=== PATIENT | female | born 1930 | race Caucasian/White ===

== ENCOUNTER 2017-03-03 17:00 | Inpatient (IN) | payer OTHER ==
[~2017-03-03] VITALS: Ht 149.9 cm; Wt 45.0 kg
[~2017-03-03 17:00] MED LIST: AMLO-114 PO; ASPI81TA28 PO; MULT-513 PO; OMEG10007 PO
[2017-03-03] MEDS ORDERED: SODIUM CHLORIDE 0.9% 1000ML 1,000 ML IV SCH (17:18)
--- NOTE | 2017-03-03 17:29 | EMERGENCY ROOM VISIT NOTE ---
History Report prepared by Kathy: Chapin Ayala Under the Supervision of: Dr. True Baer M.D. First contact with patient: 17:10 Chief Complaint: STROKE SYMPTOMS Stated Complaint: STROKE History of Present Illness The patient is a 86 year old female who presents to the Emergency Room with complaints of constant neurologic symptoms beginning 9 hours ago. Per son, the patient's symptoms began with loss of balance, and left hand weakness. He notes that the patient fell today. The patient denies any headache, chest pain, back pain, abdominal pain, fevers, urinary symptoms, or vomiting. She denies any injury from her fall today. She states that she currently does not feel off balance. The patient states that she did not notice any left sided weakness today. She states that she has been eating and drinking normally. Source of History: patient, family (son) Onset: 9 hours ago Quality: other (neurologic symptoms) Timing: constant Associated Symptoms: + weakness (left hand), No abdominal pain, No back pain , No chest pain, No fevers, No headache, No urinary symptoms, No vomiting Note: The patient also complains of feeling off balance. Review of Systems See HPI for pertinent positives & negatives. A total of 10 systems reviewed and were otherwise negative. Past Medical & Surgical Medical Problems: (1) Hyperlexia (2) Hypertension (3) Osteoporosis Family History No pertinent family history stated. Social History Smoking Status: Current Every Day Smoker Alcohol Use: none Marital Status: Housing Status: lives with significant other Occupation Status: unemployed Current/Historical Medications Scheduled Amlodipine (Norvasc), 10 MG PO DAILY Aspirin (Aspirin Ec), 81 MG PO DAILY Multivitamins/Minerals (Mvi With Minerals), 1 TAB PO DAILY Allergies Coded Allergies: Morphine (Verified Allergy, Unknown, hallucinations, 03/03/17) Physical Exam Vital Signs Date Time Temp Pulse Resp B/P Pulse Ox O2 Delivery O2 Flow Rate FiO2 03/03/17 17:58 87 22 141/105 97 Room Air 03/03/17 17:15 98 Room Air 03/03/17 17:13 37.7 89 18 151/81 96 Room Air 03/03/17 17:06 87 Physical Exam GENERAL: Patient is in no acute distress. HEENT: No acute trauma, normocephalic atraumatic, mucous membranes moist, no nasal congestion, no scleral icterus. NECK: No stridor, no adenopathy, no meningismus, trachea is midline. LUNGS: Diminished breath sounds bilaterally. Breath sounds are equal. No wheezes or rhonchi. HEART: Without murmurs gallops or rubs, regular rate and rhythm. ABDOMEN: Soft, nontender, bowel sounds positive, no hernias, no peritonitis. EXTREMITIES: No cyanosis or edema, full range of motion of all the joints without pain or difficulty, no signs for acute trauma. NEUROLOGIC: Appears to demonstrate left sided neglect. Left arm drifting and some LUE cerebellar dysfunction. Slight left leg drifting. No facial droop or slurred speech. Awake and alert. SKIN: No rash, no jaundice, no diaphoresis. Medical Decision & Procedures ER Provider Diagnostic Interpretation: X-ray results as stated below per interpretation by me and the radiologist. CT results as stated below per my review and radiologist interpretation: HEAD CT NONCONTRAST Findings: The paranasal sinuses and mastoid air cells are clear. Acute/subacute infarct of the right middle cerebral arterial distribution. Moderate effacement of the mid to superior right cerebral sulci. No acute intracranial hemorrhage. No midline shift. Pre-existing age-related chronic small vessel and atrophic change. Impression: A relatively large acute/subacute right cerebral infarct involving the right middle cerebral arterial distribution. No acute intracranial hemorrhage. Electronically signed by: Sudarshan Sun M.D. CHEST ONE VIEW PORTABLE FINDINGS: The bones soft tissues and hemidiaphragms are normal. The cardiomediastinal silhouette is normal. The lungs are clear. The pulmonary vasculature is normal. IMPRESSION: Negative chest. Electronically signed by: Sudarshan Sun M.D. Laboratory Results 03/03/17 17:15 Red Blood Count 4.39, Mean Corpuscular Volume 89.5, Mean Corpuscular Hemoglobin 31.2, Mean Corpuscular Hemoglobin Concent 34.9, Mean Platelet Volume 8.2, Neutrophils (%) (Auto) 70.4, Lymphocytes (%) (Auto) 18.0, Monocytes (%) (Auto) 8.6, Eosinophils (%) (Auto) 2.0, Basophils (%) (Auto) 0.6, Neutrophils # (Auto) 3.59, Lymphocytes # (Auto) 0.92, Monocytes # (Auto) 0.44, Eosinophils # (Auto) 0.10, Basophils # (Auto) 0.03 03/03/17 17:15 Test 03/03/17 17:15 03/03/17 17:23 03/03/17 17:33 White Blood Count 5.10 K/uL (4.8-10.8) Red Blood Count 4.39 M/uL (4.2-5.4) Hemoglobin 13.7 g/dL (12.0-16.0) Hematocrit 39.3 % (37-47) Mean Corpuscular Volume 89.5 fL (80-100) Mean Corpuscular Hemoglobin 31.2 pg (25-34) Mean Corpuscular Hemoglobin Concent 34.9 g/dl (32-36) Platelet Count 349 K/uL (130-400) Mean Platelet Volume 8.2 fL (7.4-10.4) Neutrophils (%) (Auto) 70.4 % Lymphocytes (%) (Auto) 18.0 % Monocytes (%) (Auto) 8.6 % Eosinophils (%) (Auto) 2.0 % Basophils (%) (Auto) 0.6 % Neutrophils # (Auto) 3.59 K/uL (1.4-6.5) Lymphocytes # (Auto) 0.92 K/uL (1.2-3.4) Monocytes # (Auto) 0.44 K/uL (0.11-0.59) Eosinophils # (Auto) 0.10 K/uL (0-0.5) Basophils # (Auto) 0.03 K/uL (0-0.2) RDW Standard Deviation 49.9 fL (36.4-46.3) RDW Coefficient of Variation 15.2 % (11.5-14.5) Immature Granulocyte % (Auto) 0.4 % Immature Granulocyte # (Auto) 0.02 K/uL (0.00-0.02) Prothrombin Time 11.4 SECONDS (9.0-12.0) Prothromb Time International Ratio 1.1 (0.9-1.1) Activated Partial Thromboplast Time 28.2 SECONDS (21.0-31.0) Partial Thromboplastin Ratio 1.1 Anion Gap 7.0 mmol/L (3-11) Est Creatinine Clear Calc Drug Dose 41.1 ml/min Estimated GFR () 59.8 Estimated GFR (Non- 51.6 BUN/Creatinine Ratio 22.9 (10-20) Calcium Level 9.5 mg/dl (8.5-10.1) Total Creatine Kinase 92 U/L (26-192) Creatine Kinase MB 1.8 ng/ml (0.5-3.6) Creatine Kinase MB Ratio 2.0 (0-3.0) Troponin I < 0.015 ng/ml (0-0.045) Chemistry Specimen Hemolysis Bedside Glucose 99 mg/dl (70-90) Bedside Prothrombin Time INR 1.1 (0.9-1.1) Laboratory results reviewed by me. Medications Administered Medications (Trade) Dose Ordered Sig/Paco Route Start Time Stop Time Status Last Admin Dose Admin Sodium Chloride (Nss 1000ml) 1,000 ml @ 50 mls/hr Q20H IV 03/03/17 17:18 04/02/17 17:17 03/03/17 17:58 50 MLS/HR ECG Indication: other (neurologic symptoms ) Rate (beats per minute): 86 Rhythm: normal sinus Findings: T-wave inversion (Lateral leads. Somewhat along the inferior leads. ) , no ectopy, other (LVH) Comparison ECG Date: Nov 18, 2008 Change: no significant change ED Course 171: The patient was evaluated in room A12B. A complete history and physical exam was performed. 1718: Ordered Sodium Chloride 1000 ml @ 50 mls/hr IV. 1754: Upon reexamination the patient is resting comfortably. I discussed results and treatment plan with the patient. She verbalizes agreement and understanding. The patient will be evaluated for further management. Medical Decision The patient is a 86 year old female who presents to the ED with complaints of neurologic symptoms. Differential diagnoses considered include CVA, ICH, infection, UTI, electrolyte imbalance, anemia, and dysrhythmia. There is no leukocytosis or concerning anemia. No significant electrolyte abnormality, kidney failure. EKG shows a sinus rhythm with LVH, no acute ischemia. Cardiac enzyme testing times one is not consistent with acute cardiac injury. Chest x-ray shows no pneumonia or mediastinal widening. There is no CHF. Brain CT shows evidence for a subacute right MCA stroke. No intracranial bleeding. Blood pressure somewhat elevated but I do think reasonable given the stroke findings. On exam, the patient did have evidence for left sided neglect. She had some left sided upper and lower extremity motor deficits. The patient received IV saline, she is clearly out of any window for TPA. She has had symptoms now for well over [address], the stroke as already been classified as subacute. The patient requires admission/observation. I did speak to case management. The on-call hospitalist was consulted. I discussed my findings with the patient and her son. Medication Reconciliation: I attest that I have personally reviewed the patient' s current medication list. Blood Pressure Screening: Patient was found to have an elevated blood pressure and was referred to their primary doctor for recheck and further treatment. Consults Time Called: 1749 Consulting Physician: Dr. Yunior MURPHY Returned Call: [phone] Discussed the patient's case. The patient will be evaluated for further management. Impression Primary Impression: Acute CVA (cerebrovascular accident) Scribe Attestation The scribe's documentation has been prepared under my direction and personally reviewed by me in its entirety. I confirm that the note above accurately reflects all work, treatment, procedures, and medical decision making performed by me. Departure Information Dispostion Being Evaluated By Hospitalist Referrals No Doctor, Assigned (PCP) Patient Instructions My [facility] Stroke History Time Last Known Well 8 am (9.5 hours MEDICAL DIRECTOR) Stroke t-PA Criteria Reviewed Does NOT meet criteria for t-PA Reason t-PA Not Given Treatment not indicated
[2017-03-03 17:30] LABS: BASO % 0.6 %; BASO ABS # 0.03 K/uL (0-0.2); COMPLETE YES; HEMATOCRIT 39.3 % (37-47); IG% 0.4 %; LYMPH ABS # 0.92 K/uL (1.2-3.4); MEAN CELL VOLUME 89.5 fL (80-100); MEAN CORPUSCULAR HEMOGLOBIN 31.2 pg (25-34); MEAN CORPUSCULAR HGB CONC 34.9 g/dl (32-36); MEAN PLATELET VOLUME 8.2 fL (7.4-10.4); MONO % 8.6 %; NEUT % 70.4 %; PLATELET COUNT 349 K/uL (130-400); RED BLOOD COUNT 4.39 M/uL (4.2-5.4)
[2017-03-03 17:39] LABS: INR 1.1 (0.9-1.1); PARTIAL THROMBOPLASTIN RATIO 1.1; PROTHROMBIN TIME (PATIENT) 11.4 SECONDS (9.0-12.0)
--- NOTE | 2017-03-03 17:42 | DIAGNOSTIC IMAGING REPORT ---
HEAD CT NONCONTRAST CT DOSE: 1277.12 mGycm HISTORY: Mental status change Stroke TECHNIQUE: Multiaxial CT images of the head were performed without the use of intravenous contrast. Comparison: 02/29/2016 Findings: The paranasal sinuses and mastoid air cells are clear. Acute/subacute infarct of the right middle cerebral arterial distribution. Moderate effacement of the mid to superior right cerebral sulci. No acute intracranial hemorrhage. No midline shift. Pre-existing age-related chronic small vessel and atrophic change. Impression: A relatively large acute/subacute right cerebral infarct involving the right middle cerebral arterial distribution. No acute intracranial hemorrhage. Electronically signed by: Sudarshan Sun M.D. 03/03/2017 5:41 PM Dictated Date/Time: 03/03/2017 5:38 PM
--- NOTE | 2017-03-03 17:50 | DIAGNOSTIC IMAGING REPORT ---
CHEST ONE VIEW PORTABLE CLINICAL HISTORY: Stroke mental status change COMPARISON STUDY: 05/15/2012 FINDINGS: The bones soft tissues and hemidiaphragms are normal. The cardiomediastinal silhouette is normal. The lungs are clear. The pulmonary vasculature is normal. IMPRESSION: Negative chest. Electronically signed by: Sudarshan Sun M.D. 03/03/2017 5:49 PM Dictated Date/Time: 03/03/2017 5:49 PM
[2017-03-03 17:53] LABS: BLOOD UREA NITROGEN 23 mg/dl (7-18); BUN/CREATININE RATIO 22.9 (10-20); CALCIUM 9.5 mg/dl (8.5-10.1); CARBON DIOXIDE 27 mmol/L (21-32); CHLORIDE 103 mmol/L (98-107); CREATININE 0.99 mg/dl (0.60-1.20); GLUCOSE 89 mg/dl (70-99); POTASSIUM 3.9 mmol/L (3.5-5.1); SODIUM 137 mmol/L (136-145)
--- NOTE | 2017-03-03 18:03 | History and Physical ---
History & Physical Date & Time of Service: March 03, 2017 at 17:58 Chief Complaint: Stroke Primary Care Physician: No Doctor, Assigned History of Present Illness Source: patient, family This is a 86 yo F with PMHx of hyperlipidemia, hypertension, right breast mucinous adenocarcinoma s/p lumpectomy in 2011, hx R nephrectomy 2012, chronic tobacco abuse, who presents with new acute right CVA involving the right MCA. She experienced acute onset of weakness which began at approximately 9 AM today. The patient's son is present at bedside and he reports the last time she was seen while was at approximately 8 AM. The patient is hesitant to provide any history and she does not wish to stay in the hospital. Son reports that she was leaning towards her right side with ambulation, and seemed to be off balance. The patient does admit to feeling like she couldn't walk straight but denies any lightheadedness or dizziness. She denies any strength deficits in her upper or lower extremities. She denies any difficulty with swallowing or speech throughout the day. Son confirms that she does not seem to have any slurred speech or aphasia. She denies any chest pain, shortness of breath, abdominal pain. Patient admits to a tonic tobacco use history, smokes approximately 8-10 cigarettes per day. She takes a baby aspirin in the morning and is on amlodipine 10 mg every morning. She does not take any other medications and does not follow with a family doctor regularly. Past Medical/Surgical History Medical Problems: (1) Hyperlexia Status: Chronic (2) Hypertension Status: Chronic Hx Breast Cancer S/p kidney removal Social History Smoking Status: Current Every Day Smoker Smokeless Tobacco Use: No Alcohol Use: none Drug Use: none Marital Status: Housing status: lives with family Occupational Status: unemployed Immunizations History of Influenza Vaccine: Yes Influenza Vaccine Date: Aug 02, 2008 History of Tetanus Vaccine?: Unknown History of Pneumococcal: No History of Hepatitis B Vaccine: No Multi-Drug Resistant Organisms History of MDRO: No Allergies Coded Allergies: Morphine (Verified Allergy, Unknown, hallucinations, 03/03/17) Home Medications Scheduled Amlodipine (Norvasc), 10 MG PO DAILY Aspirin (Aspirin Ec), 81 MG PO DAILY Multivitamins/Minerals (Mvi With Minerals), 1 TAB PO DAILY Review of Systems Constitutional: No fever, sweats or chills Eyes: No diplopia, no worsening or blurred vision ENT: normal hearing, no trouble swallowing Respiratory: No cough, sputum, dyspnea at rest or on exertion Cardiovascular: No chest pain, tightness or palpitations Abdomen: No pain, nausea, vomiting, diarrhea or constipation Musculoskeletal: No joint pain, calf pain, swelling Neurologic: No weakness, numbness/tingling, + balance problems and leaning to the right side during ambulation Psychiatric: No anxiety or depression Skin: No rash or itch Physical Exam Vital Signs Date Time Temp Pulse Resp B/P Pulse Ox O2 Delivery O2 Flow Rate FiO2 03/03/17 17:15 98 Room Air 03/03/17 17:13 37.7 89 18 151/81 96 Room Air 03/03/17 17:06 87 General: awake, alert, no apparent distress, appears anxious, thin, smells of tobacco smoke Head: Normocephalic, atraumatic ENT: PERRL, EOMI, no pharyngeal exudate, mucous membranes moist Chest: Clear to auscultation, on room air, no adventitious breath sounds Cardiac: Regular rate and rhythm, + soft systolic murmur, no JVD, normal peripheral pulses, good capillary refill Abdominal: NABS x 4 quadrants, soft, nontender to palpation, no rebound, guarding or tenderness Extremities: Normal inspection, no peripheral edema or erythema, calfs nontender to palpation Psych: Normal mood and affect Neuro: AAO x 3, left upper extremity is ataxic, + pronator drift with the left upper extremity, diminished ability to touch finger to nose w left hand, ability of rapid alternating movement is diminished in the left hand. Strength is decreased 4 out of 5 on the left upper extremity compared to the right. Strength is 5 out of 5 and equal bilaterally in lower extremities. Heel-to- slater testing is intact bilaterally. Speech is clear, no peripheral sensory deficits Diagnostics Laboratory Results Results Past 24 Hours Test 03/03/17 17:15 03/03/17 17:23 03/03/17 17:33 Range/Units White Blood Count 5.10 4.8-10.8 K/uL Red Blood Count 4.39 4.2-5.4 M/uL Hemoglobin 13.7 12.0-16.0 g/dL Hematocrit 39.3 37-47 % Mean Corpuscular Volume 89.5 80-100 fL Mean Corpuscular Hemoglobin 31.2 25-34 pg Mean Corpuscular Hemoglobin Concent 34.9 32-36 g/dl Platelet Count 349 130-400 K/uL Mean Platelet Volume 8.2 7.4-10.4 fL Neutrophils (%) (Auto) 70.4 % Lymphocytes (%) (Auto) 18.0 % Monocytes (%) (Auto) 8.6 % Eosinophils (%) (Auto) 2.0 % Basophils (%) (Auto) 0.6 % Neutrophils # (Auto) 3.59 1.4-6.5 K/uL Lymphocytes # (Auto) 0.92 1.2-3.4 K/uL Monocytes # (Auto) 0.44 0.11-0.59 K/uL Eosinophils # (Auto) 0.10 0-0.5 K/uL Basophils # (Auto) 0.03 0-0.2 K/uL RDW Standard Deviation 49.9 36.4-46.3 fL RDW Coefficient of Variation 15.2 11.5-14.5 % Immature Granulocyte % (Auto) 0.4 % Immature Granulocyte # (Auto) 0.02 0.00-0.02 K/uL Prothrombin Time 11.4 9.0-12.0 SECONDS Prothromb Time International Ratio 1.1 0.9-1.1 Activated Partial Thromboplast Time 28.2 21.0-31.0 SECONDS Partial Thromboplastin Ratio 1.1 Sodium Level 137 136-145 mmol/L Potassium Level 3.9 3.5-5.1 mmol/L Chloride Level 103 98-107 mmol/L Carbon Dioxide Level 27 21-32 mmol/L Anion Gap 7.0 3-11 mmol/L Blood Urea Nitrogen 23 7-18 mg/dl Creatinine 0.99 0.60-1.20 mg/dl Est Creatinine Clear Calc Drug Dose 41.1 ml/min Estimated GFR () 59.8 Estimated GFR (Non- 51.6 BUN/Creatinine Ratio 22.9 10-20 Random Glucose 89 70-99 mg/dl Calcium Level 9.5 8.5-10.1 mg/dl Total Creatine Kinase 92 26-192 U/L Creatine Kinase MB 1.8 0.5-3.6 ng/ml Creatine Kinase MB Ratio 2.0 0-3.0 Troponin I < 0.015 0-0.045 ng/ml Chemistry Specimen Hemolysis Bedside Glucose 99 70-90 mg/dl Bedside Prothrombin Time INR 1.1 0.9-1.[address] NON[address]AST CT DOSE: 1277.12 mGycm HISTORY: Mental status change Stroke TECHNIQUE: Multiaxial CT images of the head were performed without the use of intravenous contrast. Comparison: 02/29/2016 Findings: The paranasal sinuses and mastoid air cells are clear. Acute/subacute infarct of the right middle cerebral arterial distribution. Moderate effacement of the mid to superior right cerebral sulci. No acute intracranial hemorrhage. No midline shift. Pre-existing age-related chronic small vessel and atrophic change. Impression: A relatively large acute/subacute right cerebral infarct involving the right middle cerebral arterial distribution. No acute intracranial hemorrhage. Electronically signed by: Sudarshan Sun M.D. 03/03/2017 5:41 PM Dictated Date/Time: 03/03/2017 5:38 PM The status of this report is Signed. CHEST ONE VIEW PORTABLE CLINICAL HISTORY: Stroke mental status change COMPARISON STUDY: 05/15/2012 FINDINGS: The bones soft tissues and hemidiaphragms are normal. The cardiomediastinal silhouette is normal. The lungs are clear. The pulmonary vasculature is normal. IMPRESSION: Negative chest. Electronically signed by: Sudarshan Sun M.D. 03/03/2017 5:49 PM Dictated Date/Time: 03/03/2017 5:49 PM The status of this report is Signed. Impression Assessment and Plan This is a 86 yo F with PMHx of hyperlipidemia, hypertension, right breast mucinous adenocarcinoma s/p lumpectomy in 2011, hx R nephrectomy 2012, chronic tobacco abuse, who presents with new acute right CVA involving the right MCA. She experienced acute onset of weakness which began at approximately 9 AM today. Right MCA CVA - Admit to telemetry - Stroke protocols in place, patient is outside the TPA window - neuro checks every 2 hours for the first 12 hours and then every 4 - Consult neurology- appreciate recs - Consult speech therapy- Nothing by mouth until speech eval. - CT of the head was reviewed as above, Patient will need repeat CT of the head tomorrow to monitor for evolvement of the stroke - Check lipids and hemoglobin A1c as per the guidelines - Obtain carotid Doppler to rule out carotid plaque - 2-D echocardiogram is ordered - statin initiated with atorvastatin 40 mg daily - continue ASA 81 mg daily, discussed Plavix initiation with family and day team - PT OT evals History of breast cancer - right breast mucinous adenocarcinoma s/p lumpectomy in 2011 - Stapled patient reports this was approximately 7 years ago and she is status post lumpectomy S/p R nephrectomy - 2013, stable Chronic tobacco use and second hand exposure - Smoking cessation was counseled at bedside - Nicotine 14 mg patch ordered DVT prophylaxis: Teds, SCDs, ASA CODE STATUS; full code Disposition patient home, PT OT evaluations, likely will need rehabilitation upon discharge. Level of Care Telemetry Resuscitation Status FULL RESUSCITATION VTE Prophylaxis VTE Risk Assessment Done? Y/N: Yes Risk Level: Moderate Given or contraindicated: T.E.D. Stockings, SCD's Reviewed: Pt Seen/Exam by Me History Pt's son is not present. Pt states she feels fine. No issues swallowing. Feels her strength is returning. Agree with HPI/ROS as noted. General Appearance: WD/WN, no apparent distress Respiratory: normal breath sounds, no respiratory distress Cardiovascular: normal peripheral pulses, regular rate, rhythm Gastrointestinal: non tender, soft Extremities: non-tender, no pedal edema Neurologic/Psychiatric: alert, oriented x 3 Skin Characteristics: normal color, warm/dry Assessment/Plan Agree with plan as outlined above Pt s/p CVA as noted on CT head Presented outside of tpa window Sx improving s/p fall and generally feeling off balance, PT/OT recs pending Tobacco use
[2017-03-03] MEDS ORDERED: PHARMACIST DISCHARGE MED REC CONSULT PRN (18:30)
[2017-03-03 20:21] VITALS: BP 154/79; PULSE 98; TEMP 36.6; O2SAT 93; BMI 19.9
[2017-03-03 23:24] VITALS: BP 151/74; PULSE 76; TEMP 37.7; O2SAT 92
[2017-03-04 03:26] VITALS: BP 152/74; PULSE 75; TEMP 37.1; O2SAT 95
[2017-03-04 05:31] LABS: URINE APPEARANCE CLEAR (CLEAR); URINE BILIRUBIN NEG (NEG); URINE COLOR YELLOW; URINE NITRITE POS (NEG); URINE SPECIFIC GRAVITY 1.015 (1.000-1.030); UROBILINOGEN NEG (NEG); ZZURINE CULT IF INDIC CATH YES
[2017-03-04 05:34] LABS: MANUAL MICROSCOPIC REQUIRED? NO; REVIEW REQ? NO
[2017-03-04 06:13] LABS: BASO % 0.7 %; BASO ABS # 0.04 K/uL (0-0.2); COMPLETE YES; EOS % 1.5 %; HEMATOCRIT 33.7 % (37-47); IG% 0.2 %; LYMPH % 19.1 %; LYMPH ABS # 1.04 K/uL (1.2-3.4); MEAN CELL VOLUME 90.3 fL (80-100); MEAN CORPUSCULAR HEMOGLOBIN 31.1 pg (25-34); MEAN CORPUSCULAR HGB CONC 34.4 g/dl (32-36); MEAN PLATELET VOLUME 8.4 fL (7.4-10.4); MONO % 13.2 %; NEUT % 65.3 %; PLATELET COUNT 282 K/uL (130-400); RED BLOOD COUNT 3.73 M/uL (4.2-5.4); WHITE BLOOD COUNT 5.45 K/uL (4.8-10.8)
[2017-03-04 06:17] LABS: ESTIMATED AVERAGE GLUCOSE 134 mg/dl; HA1C FLAG Normal (Normal)
--- NOTE | 2017-03-04 06:26 | Progress Note ---
Progress Note Date of Service March 04, 2017. Progress Note RN contacted me with concern for multiple episodes of incontinence and potential for UTI, UA with a straight cath done and pos nitrites, tr leuk est, WBC and +4 bacteria--> rocephin started
[2017-03-04 06:58] LABS: BUN/CREATININE RATIO 19.7 (10-20); CHOLESTEROL/HDL RATIO 2.8; CREATININE 0.78 mg/dl (0.60-1.20); POTASSIUM 3.3 mmol/L (3.5-5.1)
--- NOTE | 2017-03-04 07:25 | DIAGNOSTIC IMAGING REPORT ---
ULTRASOUND OF THE CAROTID ARTERIES CLINICAL HISTORY: Stroke. COMPARISON STUDY: Carotid artery ultrasound dated 06/27/2014. TECHNIQUE: Real-time, grayscale, and color Doppler sonography of the carotid arteries is performed. Images are reviewed in the transverse and longitudinal planes. FINDINGS: Blood pressures were not assessed due to limb restrictions. The carotid arteries are patent bilaterally and demonstrate antegrade flow. There is moderate to advanced echogenic shadowing atherosclerotic plaque seen bilaterally, greatest in the carotid bulbs. Normal doppler arterial waveforms are seen throughout. Velocity measurements are listed below. Common carotid peak systolic velocity (cm/sec): RIGHT: 53 LEFT: 52 ICA proximal peak systolic velocity (cm/sec): RIGHT: 78 LEFT: 72 ICA mid peak systolic velocity (cm/sec): RIGHT: 41 LEFT: 53 ICA distal peak systolic velocity (cm/sec): RIGHT: 36 LEFT: 46 ICA/CC peak systolic ratio: RIGHT: 1.5 LEFT: 1.4 Antegrade flow was shown in the vertebral arteries. The external carotid arteries are patent. IMPRESSION: 1. Atherosclerotic plaque with no sonographic evidence of hemodynamically significant stenosis in the right or left carotid arterial system. 2. Antegrade flow is shown in the vertebral arteries. Electronically signed by: True Roman M.D. 03/04/2017 7:24 AM Dictated Date/Time: 03/04/2017 7:22 AM
[2017-03-04 07:34] LABS: CALCIUM 8.3 mg/dl (8.5-10.1)
[2017-03-04 08:06] VITALS: BP 127/61; PULSE 65; TEMP 37.1; O2SAT 94
[2017-03-04] MEDS: CEFTRIAXONE SOD INJ 1 GM in DEXTROSE 5% ADD-VANTAGE 50ML 50 ML IV SCH (08:15)
[2017-03-04] MEDS: NICOTINE 14 MG/24 HR TDSY TD SCH (08:19)
[2017-03-04] MEDS: D5NSS + 20MEQ KCL 1,000 ML IV SCH ×2 (08:20→23:45)
[2017-03-04] MEDS ORDERED: ASPIRIN 81 MG ECTAB PO SCH (09:00)
[2017-03-04] MEDS: ATORVASTATIN 40 MG TAB PO SCH (09:00)
--- NOTE | 2017-03-04 10:03 | Neurology Consultation ---
Neurology Consultation Date of Consultation: March 04, 2017. Attending Physician: Russel Baca MD Primary Care Physician: No Doctor, Assigned Reason for Consultation: Stroke History of Present Illness The patient is an 86-year-old female with a chief complaint of left-sided weakness, especially the hand beginning about 9 hours prior to arrival in the emergency department. Symptoms were associated with a fall. The patient continues to complain of persistent heaviness or weakness of the left upper extremity. She denies headache, vision change, or vertigo area did past medical history significant for hypertension and tobacco use. She is prescribed Norvasc and aspirin as an outpatient. I reviewed the CT of the head completed upon presentation. There are changes suggestive of a subacute to acute right MCA territory ischemic infarct. Images reviewed. A carotid duplex is negative for hemodynamically significant stenosis. Electrocardiogram reveals a normal sinus rhythm, 86 bpm. Past Medical/Surgical History Medical Problems: (1) Acute CVA (cerebrovascular accident) Status: Acute (2) Head injury Status: Acute (3) Scalp laceration Status: Acute Family History Noncontributory given patient's advanced age Social History Smokeless Tobacco Use: No Alcohol Use: none Drug Use: none Marital Status: Housing Status: lives with significant other Occupation Status: unemployed Allergies Coded Allergies: Morphine (Verified Allergy, Unknown, hallucinations, 03/03/17) Current Inpatient Medications Current Inpatient Medications Medications (Trade) Dose Ordered Sig/Paco Route Start Time Stop Time Status Last Admin Dose Admin Atorvastatin Calcium (Lipitor Tab) 40 mg QAM PO 03/04/17 09:00 04/03/17 08:59 Aspirin (Ecotrin Tab) 81 mg QAM PO 03/04/17 09:00 04/03/17 08:59 Miscellaneous Information (Pharmacist Discharge Med Rec Consult) 1 ea UD PRN N/A 03/03/17 18:30 04/02/17 18:29 Nicotine (Nicoderm Cq 14MG Patch) 1 patch QAM TD 03/04/17 09:00 04/03/17 08:59 03/04/17 08:19 1 PATCH Miscellaneous 1 ea 1 ea HS N/A 03/03/17 21:00 04/02/17 20:59 Ceftriaxone Sodium 1 gm/ Dextrose 50 ml @ 100 mls/hr DAILY@0600 IV 03/04/17 07:00 03/09/17 06:59 03/04/17 08:15 100 MLS/HR Potassium Chloride/Dextrose/ Sod Cl (D5nss + 20meq KCl) 1,000 ml @ 80 mls/hr [id number] IV 03/04/17 08:30 04/03/17 08:29 03/04/17 08:20 80 MLS/HR Review of Systems A full 10 point systems review was obtained from this patient with pertinent positives and negatives described in the history of present illness. All remaining systems are negative. Physical Exam Vital Signs (Past 24 Hrs): Date Time Temp Pulse Resp B/P Pulse Ox O2 Delivery O2 Flow Rate FiO2 03/04/17 08:06 37.1 65 16 127/61 94 Room Air 03/04/17 04:00 Room Air 03/04/17 03:26 37.1 75 20 152/74 95 Room Air 03/04/17 00:00 Room Air 03/03/17 23:24 37.7 76 20 151/74 92 Room Air 03/03/17 20:21 36.6 98 22 154/79 93 Room Air 03/03/17 19:42 37.7 87 22 141/105 97 03/03/17 17:58 87 22 141/105 97 Room Air 03/03/17 17:15 98 Room Air 03/03/17 17:13 37.7 89 18 151/81 96 Room Air 03/03/17 17:06 87 The patient is a well-developed, elderly female, no acute distress. She is mildly lethargic but oriented to person and hospital. Attention is mildly diminished. Recent memory impaired. Remote memory intact. Patient is able to name objects and repeat phrases. She has some difficulty reading text as she does not have her eyeglasses. Vocabulary normal. Visual alva grossly full to confrontation. Visual acuity reduced without corrective eyewear. Pupils equal round reactive to light and accommodation. Eye movements normal. No nystagmus. Facial sensation intact bilaterally. Facial strength normal bilaterally. Palate elevates to midline. Tongue protrudes to midline. Shoulder shrug and hearing intact. Sensation intact to light touch, temperature, proprioception, and vibration in all 4 limbs. Deep tendon reflexes are normoactive and symmetric for the upper and lower limbs. Plantar responses are downgoing. There is mild dysmetria with finger to nose testing for the left. No dysmetria for the right upper limb. Patient performs heel to slater normally for both lower limbs. Ophthalmoscopic examination reveals normal-appearing optic nerves and posterior elements. No papilledema or hemorrhages. Carotid pulses normal bilaterally, no bruits to auscultation. Musculoskeletal examination reveals intact strength and normal tone for all 4 limbs. There is no atrophy. No abnormal movements. Gait not tested due to safety concerns. Laboratory Results Past 24 Hours: 03/04/17 05:35 Red Blood Count 3.73, Mean Corpuscular Volume 90.3, Mean Corpuscular Hemoglobin 31.1, Mean Corpuscular Hemoglobin Concent 34.4, Mean Platelet Volume 8.4, Neutrophils (%) (Auto) 65.3, Lymphocytes (%) (Auto) 19.1, Monocytes (%) (Auto) 13.2, Eosinophils (%) (Auto) 1.5, Basophils (%) (Auto) 0.7, Neutrophils # (Auto ) 3.56, Lymphocytes # (Auto) 1.04, Monocytes # (Auto) 0.72, Eosinophils # (Auto ) 0.08, Basophils # (Auto) 0.04 03/04/17 05:35 Test 03/03/17 17:15 03/03/17 17:33 03/04/17 02:15 03/04/17 05:35 Prothrombin Time 11.4 SECONDS (9.0-12.0) Prothromb Time International Ratio 1.1 (0.9-1.1) Activated Partial Thromboplast Time 28.2 SECONDS (21.0-31.0) Partial Thromboplastin Ratio 1.1 Estimated Average Glucose 134 mg/dl Hemoglobin A1c 6.3 % (4.5-5.6) Total Creatine Kinase 92 U/L (26-192) Creatine Kinase MB 1.8 ng/ml (0.5-3.6) Creatine Kinase MB Ratio 2.0 (0-3.0) Troponin I < 0.015 ng/ml (0-0.045) Chemistry Specimen Hemolysis Bedside Prothrombin Time INR 1.1 (0.9-1.1) Urine Color YELLOW Urine Appearance CLEAR (CLEAR) Urine pH 7.0 (4.5-7.5) Urine Specific [place] 1.015 (1.000-1.030) Urine Protein NEG (NEG) Urine Glucose (UA) NEG (NEG) Urine Ketones TRACE (NEG) Urine Occult Blood NEG (NEG) Urine Nitrite POS (NEG) Urine Bilirubin NEG (NEG) Urine Urobilinogen NEG (NEG) Urine Leukocyte Esterase TRACE (NEG) Urine WBC (Auto) 5-10 /hpf (0-5) Urine RBC (Auto) 0-4 /hpf (0-4) Urine Hyaline Casts (Auto) 1-5 /lpf (0-5) Urine Epithelial Cells (Auto) 10-20 /lpf (0-5) Urine Bacteria (Auto) 4+ (NEG) White Blood Count 5.45 K/uL (4.8-10.8) Red Blood Count 3.73 M/uL (4.2-5.4) Hemoglobin 11.6 g/dL (12.0-16.0) Hematocrit 33.7 % (37-47) Mean Corpuscular Volume 90.3 fL (80-100) Mean Corpuscular Hemoglobin 31.1 pg (25-34) Mean Corpuscular Hemoglobin Concent 34.4 g/dl (32-36) Platelet Count 282 K/uL (130-400) Mean Platelet Volume 8.4 fL (7.4-10.4) Neutrophils (%) (Auto) 65.3 % Lymphocytes (%) (Auto) 19.1 % Monocytes (%) (Auto) 13.2 % Eosinophils (%) (Auto) 1.5 % Basophils (%) (Auto) 0.7 % Neutrophils # (Auto) 3.56 K/uL (1.4-6.5) Lymphocytes # (Auto) 1.04 K/uL (1.2-3.4) Monocytes # (Auto) 0.72 K/uL (0.11-0.59) Eosinophils # (Auto) 0.08 K/uL (0-0.5) Basophils # (Auto) 0.04 K/uL (0-0.2) RDW Standard Deviation 49.7 fL (36.4-46.3) RDW Coefficient of Variation 15.0 % (11.5-14.5) Immature Granulocyte % (Auto) 0.2 % Immature Granulocyte # (Auto) 0.01 K/uL (0.00-0.02) Anion Gap 8.0 mmol/L (3-11) Est Creatinine Clear Calc Drug Dose 35.3 ml/min Estimated GFR () 79.8 Estimated GFR (Non- 68.8 BUN/Creatinine Ratio 19.7 (10-20) Calcium Level 8.3 mg/dl (8.5-10.1) Triglycerides Level 64 mg/dl (0-150) Cholesterol Level 187 mg/dl (0-200) HDL Cholesterol 66 mg/dl LDL Cholesterol, Calculated 108 mg/dl VLDL Cholesterol, Calculated 13 mg/dl Cholesterol/HDL Ratio 2.8 Test 03/04/17 08:07 Bedside Glucose 85 mg/dl (70-90) Impression Subacute right MCA territory ischemic stroke. Patient has a subtle left hemiparesis affecting primarily the left upper limb. There appears to be an element of left ashley-neglect as well. Plan Patient should have a brain MRI to confirm the suspected diagnosis of subacute/ acute stroke. Unless an indication for anticoagulation is identified, this patient should remain on antiplatelet therapy. It would be reasonable to discontinue her aspirin in favor of Plavix. PT/OT/speech therapy No further recommendations. Please contact me if I may be of further assistance.
[2017-03-04 10:35] VITALS: Ht 149.9 cm; Wt 45.0 kg
[2017-03-04 12:19] VITALS: BP 141/83; PULSE 73; TEMP 37; O2SAT 95
[2017-03-04 16:00] VITALS: BP 139/58; PULSE 57; TEMP 36.3; O2SAT 97
[2017-03-04] MEDS: HEPARIN SOD 5000 UNIT/0.5 ML CARP SQ SCH ×2 (16:28→23:45)
--- NOTE | 2017-03-04 19:00 | ECHOCARDIOGRAM REPORT ---
*NOTICE TO RECEIVING CONSTITUTION PARTY AGENCY This information is strictly Confidential and protected under [place] law. [place] law prohibits you from making any further disclosure of this information unless further disclosure is expressly permitted by the written consent of the person to whom it pertains or is authorized by law. A general authorization for the release of medical or other information is not sufficient for this purpose. Hospital accepts no responsibility if the information is made available to any other person, INCLUDING THE PATIENT. Interpretation Summary * Name: LORELEI CORTEZ Study Date: 03/04/2017 08:19 AM BP: 152/74 mmHg * Patient Location: .2E\S\E204\S\1 HR: 75 * : 1930 (M/d/yyyy) Gender: Female Height: 64 in * Age: 86 yrs Ethnicity: [place] Weight: 170 lb * Ordering Physician: Freida Galarza * Referring Physician: Self, Referred * Performed By: Diana Gordillo RDCS * * Reason For Study: Cerebral ischemia/embolus * BSA: 1.8 m2 * -- Conclusions -- * 1. Normal left ventricular size with hyperdynamic systolic function. EF > 70%. No regional wall motion abnormalities. No left ventricular hypertrophy. Type I diastolic dysfunction. * 2. Sclerotic aortic valve without significant stenosis. * 3. Mild aortic regurgitation. * 4. There is mild mitral regurgitation. * 5. Normal estimated right ventricular systolic pressure; RVSP 34 mmHg. Procedure Details * A complete two-dimensional transthoracic echocardiogram was performed (2D, M-mode, Doppler and color flow Doppler). * The study was technically difficult. * There were technical limitations due to patient'sinability to cooperate Left Ventricle * The left ventricle is normal in size. * There is normal left ventricular wall thickness. * Ejection Fraction = >70 %. * The left ventricle is hyperdynamic. * No regional wall motion abnormalities noted. Right Ventricle * The right ventricle is normal in size and function. * The right ventricular systolic function is normal as assessed by tricuspid annular plane systolic excursion (TAPSE) (normal >1.5 cm). Atria * The left atrial size is normal. * Right atrial size is normal. * There is no evidence of atrial septal defect, but resolution does not allow assessment for a patent foramen ovale. Mitral Valve * There is mild to moderate mitral annular calcification. * There is no mitral valve stenosis. * There is mild mitral regurgitation. Tricuspid Valve * The tricuspid valve is not well visualized, but is grossly normal. * There is no tricuspid stenosis. * There is trace tricuspid regurgitation. Aortic Valve * Sclerotic aortic valve without significant stenosis. * Mild aortic regurgitation. Pulmonic Valve * The pulmonary valve is inadequately visualized, but the Doppler data is adequate for interpretation. * There is no pulmonic valvular stenosis. * Trace pulmonic valvular regurgitation. Great Vessels * The aortic root is normal size. Pericardium/Pleural * There is no pericardial effusion. Great Vessels * Mildly dilated IVC with reduced inspiratory collapse. MMode 2D Measurements and Calculations IVSd 0.88 cm LVIDd 4.3 cm LVIDs 2.7 cm LVPWd 0.85 cm IVS/LVPW 1.0 FS 36.0 % EDV(Teich) 82.4 ml ESV(Teich) 28.1 ml EF(Teich) 65.9 % EDV(cubed) 78.7 ml ESV(cubed) 20.7 ml EF(cubed) 73.8 % LV mass(C)d 116.1 grams LV mass(C)dI 63.6 grams/m\S\2 CO(Teich) 3.4 l/min CI(Teich) 1.9 l/min/m\S\2 SV(Teich) 54.3 ml SI(Teich) 29.7 ml/m\S\2 CO(cubed) 3.7 l/min CI(cubed) 2.0 l/min/m\S\2 SV(cubed) 58.0 ml SI(cubed) 31.8 ml/m\S\2 Ao root diam 3.1 cm Ao root area 7.4 cm\S\2 ACS 0.87 cm LA dimension 2.3 cm asc Aorta Diam 3.2 cm LA/Ao 0.74 LVOT diam 2.2 cm LVOT area 3.6 cm\S\2 LVAd ap4 18.4 cm\S\2 LVLd ap4 6.1 cm EDV(MOD-sp4) 46.9 ml LVAs ap4 7.8 cm\S\2 LVLs ap4 4.4 cm ESV(MOD-sp4) 12.8 ml EF(MOD-sp4) 72.7 % LVAd ap2 21.8 cm\S\2 LVLd ap2 7.1 cm EDV(MOD-sp2) 58.4 ml LVAs ap2 8.6 cm\S\2 LVLs ap2 4.8 cm ESV(MOD-sp2) 14.3 ml EF(MOD-sp2) 75.5 % CO(MOD-sp4) 2.1 l/min CI(MOD-sp4) 1.2 l/min/m\S\2 SV(MOD-sp4) 34.1 ml SI(MOD-sp4) 18.7 ml/m\S\2 CO(MOD-sp2) 2.8 l/min CI(MOD-sp2) 1.5 l/min/m\S\2 SV(MOD-sp2) 44.1 ml SI(MOD-sp2) 24.2 ml/m\S\2 Doppler Measurements and Calculations MV E max gerard 82.9 cm/sec MV A max gerard 103.3 cm/sec MV E/A 0.80 MV dec time 0.18 sec Ao V2 max 184.0 cm/sec Ao max PG 13.5 mmHg Ao max PG (full) 8.2 mmHg Ao V2 mean 124.8 cm/sec Ao mean PG 7.1 mmHg Ao mean PG (full) 4.5 mmHg Ao V2 VTI 37.4 cm TYREE(I,A) 2.2 cm\S\2 TYREE(I,D) 2.2 cm\S\2 TYREE(V,A) 2.3 cm\S\2 TYREE(V,D) 2.3 cm\S\2 AI max gerard 327.3 cm/sec AI max PG 42.8 mmHg AI dec slope 164.1 cm/sec\S\2 AI P1/2t 584.1 msec LV V1 max PG 5.4 mmHg LV V1 mean PG 2.6 mmHg LV V1 max 116.0 cm/sec LV V1 mean 75.2 cm/sec LV V1 VTI 22.5 cm SV(Ao) 276.0 ml SI(Ao) 151.2 ml/m\S\2 SV(LVOT) 82.1 ml SI(LVOT) 45.0 ml/m\S\2 PA V2 max 77.6 cm/sec PA max PG 2.4 mmHg PA acc slope 443.1 cm/sec\S\2 PA acc time 0.13 sec PI max gerard 172.5 cm/sec PI max PG 11.9 mmHg PI dec slope 115.1 cm/sec\S\2 PI P1/2t 439.2 msec TR max gerard 217.2 cm/sec RVSP(TR) 33.9 mmHg RAP systole 15.0 mmHg PA pr(Accel) 20.4 mmHg
[2017-03-04 19:30] VITALS: BP 147/89; PULSE 58; TEMP 37.2; O2SAT 98
--- NOTE | 2017-03-04 20:18 | Progress Note ---
Subjective Date of Service: March 04, 2017. Subjective Pt evaluation today including: conversation w/ patient, physical exam, chart review, lab review, review of studies (carotid duplex, echo), review of inpatient medication list Pain: pt denies any complaints of pain PO Intake: cleared by speech for oral intake Voiding: incontinence tele stable overnight during my visit with her she was mildly confused; she knew she was in the hospital but asked me for cigarettes staff report ongoing urinary incontinence Problem List Medical Problems: (1) Acute CVA (cerebrovascular accident) Status: Acute (2) Head injury Status: Acute (3) Scalp laceration Status: Acute Review of Systems Constitutional: No fever Respiratory: + cough, No shortness of breath Cardiac: No chest pain, No orthopnea Abdomen: No pain Objective Vital Signs Date Time Temp Pulse Resp B/P Pulse Ox O2 Delivery O2 Flow Rate FiO2 03/04/17 19:30 37.2 58 16 147/89 98 Room Air 03/04/17 16:00 Room Air 03/04/17 16:00 36.3 57 16 139/58 97 Room Air 03/04/17 12:19 37.0 73 16 141/83 95 Room Air 03/04/17 12:00 Room Air 03/04/17 08:06 37.1 65 16 127/61 94 Room Air 03/04/17 08:00 Room Air 03/04/17 04:00 Room Air 03/04/17 03:26 37.1 75 20 152/74 95 Room Air 03/04/17 00:00 Room Air 03/03/17 23:24 37.7 76 20 151/74 92 Room Air 03/03/17 20:21 36.6 98 22 154/79 93 Room Air Physical Exam General Appearance: no apparent distress, + thin, + pertinent finding (leaning towards the left side of the bed, inconsistently follows commands) ENT: + pertinent finding (MM dry) Neck: no JVD Respiratory/Chest: no respiratory distress, no accessory muscle use, + wheezing (mild end-exp wheeze b/l) Cardiovascular: regular rate, rhythm, no gallop, no murmur Abdomen: normal bowel sounds, non tender, soft, no organomegaly Extremities: no pedal edema Neurologic/Psychiatric: + pertinent finding (?left sided neglect; LUE/LLE with mild motor weakness (4/5); RUE/RLE 5/5; no obvious facial droop) Laboratory Results Last 24 Hours Test 03/04/17 02:15 03/04/17 05:35 03/04/17 08:07 03/04/17 11:35 Urine Color YELLOW Urine Appearance CLEAR Urine pH 7.0 Urine Specific [place] 1.015 Urine Protein NEG Urine Glucose (UA) NEG Urine Ketones TRACE Urine Occult Blood NEG Urine Nitrite POS Urine Bilirubin NEG Urine Urobilinogen NEG Urine Leukocyte Esterase TRACE Urine WBC (Auto) 5-10 /hpf Urine RBC (Auto) 0-4 /hpf Urine Hyaline Casts (Auto) 1-5 /lpf Urine Epithelial Cells (Auto) 10-20 /lpf Urine Bacteria (Auto) 4+ White Blood Count 5.45 K/uL Red Blood Count 3.73 M/uL Hemoglobin 11.6 g/dL Hematocrit 33.7 % Mean Corpuscular Volume 90.3 fL Mean Corpuscular Hemoglobin 31.1 pg Mean Corpuscular Hemoglobin Concent 34.4 g/dl Platelet Count 282 K/uL Mean Platelet Volume 8.4 fL Neutrophils (%) (Auto) 65.3 % Lymphocytes (%) (Auto) 19.1 % Monocytes (%) (Auto) 13.2 % Eosinophils (%) (Auto) 1.5 % Basophils (%) (Auto) 0.7 % Neutrophils # (Auto) 3.56 K/uL Lymphocytes # (Auto) 1.04 K/uL Monocytes # (Auto) 0.72 K/uL Eosinophils # (Auto) 0.08 K/uL Basophils # (Auto) 0.04 K/uL RDW Standard Deviation 49.7 fL RDW Coefficient of Variation 15.0 % Immature Granulocyte % (Auto) 0.2 % Immature Granulocyte # (Auto) 0.01 K/uL Sodium Level 137 mmol/L Potassium Level 3.3 mmol/L Chloride Level 104 mmol/L Carbon Dioxide Level 25 mmol/L Anion Gap 8.0 mmol/L Blood Urea Nitrogen 15 mg/dl Creatinine 0.78 mg/dl Est Creatinine Clear Calc Drug Dose 35.3 ml/min Estimated GFR () 79.8 Estimated GFR (Non- 68.8 BUN/Creatinine Ratio 19.7 Random Glucose 63 mg/dl Calcium Level 8.3 mg/dl Triglycerides Level 64 mg/dl Cholesterol Level 187 mg/dl HDL Cholesterol 66 mg/dl LDL Cholesterol, Calculated 108 mg/dl VLDL Cholesterol, Calculated 13 mg/dl Cholesterol/HDL Ratio 2.8 Bedside Glucose 85 mg/dl 84 mg/dl Assessment and Plan 86yo female: 1. right-sided MCA territory stroke with resulting left-sided hemiparesis - carotid duplex and echo w/o source for stroke. MRI/MRA head ordered and are pending. Tele thus far negative. Started high-intensity statin for hyperlipidemia. Add heparin for DVT proph. Agree with neuro to stop aspirin and use plavix in [place] for secondary stroke prevention. Pt, Ot, speech evals appreciated. 2. suspected UTI - follow cx, cont rocephin. 3. HTN - allow permissive HTN in the setting of #1 above; thus, hold amlodipine. 4. tobacco dependence - nicoderm patch. 5. hypoglycemia - add dextrose to fluids due. Check FSBS until fingersticks are normal. 6. FEN - start D5NS with KCL. Diet per speech therapy. Repeat labs am. 7. hypokalemia - add KCL to fluids. 8. acute kidney injury in setting of CKD stage 3 - Cr today improved; BMP in am ; cont hydration. 9. DVT proph - add heparin TID. left message for son on 03/04/17 Continued [facility] stay due to: inadequate po fluid intake, ambulation difficulties , multiple IV medications needed Discharge planning: uncertain
--- NOTE | 2017-03-04 21:18 | DIAGNOSTIC IMAGING REPORT ---
MRI OF THE BRAIN WITHOUT CONTRAST CLINICAL HISTORY: Right sided MCA territory stroke. COMPARISON STUDY: Head CT March 03, 2017. TECHNIQUE: Utilizing a 1.5 Jyoti magnet and dedicated coil, multiplanar, multiecho imaging of the brain was performed without IV contrast. FINDINGS: There is a large focus of restricted diffusion within the right temporal, parietal and frontal lobes consistent with a large right MCA territory infarct. There is minimal mass effect. There is no evidence of hemorrhagic conversion. Slight compression of the right lateral ventricle is noted. Basilar cisterns are patent. There are no extra axial collections. This study is moderately, must by motion artifact. White matter T2 hyperintense foci suggest small vessel disease. No intracranial masses are identified on this unenhanced study. IMPRESSION: 1. Large acute to subacute right MCA territory infarct. Mild mass effect. No hemorrhage. 2. Study moderately compromised by motion artifact. Electronically signed by: Mahin Moralez M.D. 03/04/2017 9:17 PM Dictated Date/Time: 03/04/2017 9:13 PM
--- NOTE | 2017-03-04 21:22 | DIAGNOSTIC IMAGING REPORT ---
MRA OF THE INTRACRANIAL CIRCULATION WITHOUT CONTRAST CLINICAL HISTORY: Right sided MCA territory stroke. COMPARISON STUDY: None. TECHNIQUE: Utilizing a 1.5 Jyoti magnet and 3-D [id number] technique, unenhanced MRA of the intracranial circulation was obtained. FINDINGS: This study is moderately compromised by motion artifact. There is abrupt cut off of several sylvian branches of the right middle cerebral artery which accounts for the infarct shown on MRI of the brain. The left vertebral artery is dominant. The right vertebral artery is hypoplastic. Sensitivity for detection of small aneurysms is diminished on this exam but none are identified. The left M1, M2, A1 and A2 segments are patent. Posterior circulation is grossly intact. IMPRESSION: 1. Abrupt cut off of several sylvian branches of the right middle cerebral artery which accounts for the acute to subacute infarct shown on MRI of the brain. 2. Study moderately compromised by motion artifact. Electronically signed by: Mahin Moralez M.D. 03/04/2017 9:20 PM Dictated Date/Time: 03/04/2017 9:17 PM
[2017-03-04 23:46] VITALS: BP 141/62; PULSE 61; TEMP 37; O2SAT 96
[2017-03-05 04:37] VITALS: BP 115/59; PULSE 61; TEMP 36.8; O2SAT 92
[2017-03-05] MEDS: CEFTRIAXONE SOD INJ 1 GM in DEXTROSE 5% ADD-VANTAGE 50ML 50 ML IV SCH (05:53)
[2017-03-05 07:03] LABS: BUN/CREATININE RATIO 17.3 (10-20); CREATININE 0.76 mg/dl (0.60-1.20); MAGNESIUM 2.1 mg/dl (1.8-2.4); POTASSIUM 3.7 mmol/L (3.5-5.1)
[2017-03-05 08:00] VITALS: BP 138/59; PULSE 60; TEMP 36.6; O2SAT 94
[2017-03-05] MEDS: NICOTINE 14 MG/24 HR TDSY TD SCH (08:33)
[2017-03-05] MEDS: CLOPIDOGREL BISULFATE 75 MG TAB PO SCH (08:33)
[2017-03-05] MEDS: ATORVASTATIN 40 MG TAB PO SCH (08:33)
[2017-03-05] MEDS: HEPARIN SOD 5000 UNIT/0.5 ML CARP SQ SCH ×2 (08:33→14:14)
[2017-03-05 12:00] VITALS: BP 138/62; PULSE 61; TEMP 36.3; O2SAT 98
[2017-03-05] MEDS: D5NSS + 20MEQ KCL 1,000 ML IV SCH (12:06)
[2017-03-05 14:55] VITALS: BP 140/75; PULSE 75; TEMP 36.3; O2SAT 98
[2017-03-05 19:48] VITALS: BP 157/85; PULSE 67; TEMP 37.1; O2SAT 95
--- NOTE | 2017-03-05 21:24 | Progress Note ---
Subjective Date of Service: March 05, 2017. Subjective Pt evaluation today including: conversation w/ patient, conversation w/ family (son at bedside), physical exam, chart review, lab review, review of studies ( MRI brain, MRA brain), review of inpatient medication list Pain: none PO Intake: normal Voiding: incontinence tele overnight was normal, then this afternoon had 5-6 beat run of wide complex tachycardia no symptoms during the tachycardia this AM, during my rounds, she was eating with her son at bedside he agreed her mental status was much better she followed all commands she denied all complaints Problem List Medical Problems: (1) Acute CVA (cerebrovascular accident) Status: Acute (2) Head injury Status: Acute (3) Scalp laceration Status: Acute Review of Systems Respiratory: + cough, No shortness of breath Cardiac: No chest pain Abdomen: No pain Objective Vital Signs Date Time Temp Pulse Resp B/P Pulse Ox O2 Delivery O2 Flow Rate FiO2 03/05/17 19:48 37.1 67 20 157/85 95 Room Air 03/05/17 16:00 Room Air 03/05/17 14:55 36.3 75 18 140/75 98 Room Air 03/05/17 12:00 36.3 61 20 138/62 98 Room Air 03/05/17 12:00 Room Air 03/05/17 08:00 Room Air 03/05/17 08:00 36.6 60 18 138/59 94 Room Air 03/05/17 04:37 36.8 61 20 115/59 92 Room Air 03/05/17 04:00 Room Air 03/04/17 23:59 Room Air 03/04/17 23:46 37.0 61 23 141/62 96 Room Air Physical Exam General Appearance: no apparent distress, + thin ENT: pharynx normal Neck: no JVD Respiratory/Chest: no respiratory distress, no accessory muscle use, + wheezing (with course BS b/l ) Cardiovascular: regular rate, rhythm, no gallop, no murmur Abdomen: normal bowel sounds, non tender, soft, no organomegaly Extremities: no pedal edema Neurologic/Psychiatric: alert, + pertinent finding (strength 4/5 LUE, near 5/5 LLE; 5/5 RUE/RLE; no facial droop; +pronator drift left hand; leans to the left during the visit) Laboratory Results Last 24 Hours Test 03/05/17 06:00 Sodium Level 138 mmol/L Potassium Level 3.7 mmol/L Chloride Level 107 mmol/L Carbon Dioxide Level 23 mmol/L Anion Gap 8.0 mmol/L Blood Urea Nitrogen 13 mg/dl Creatinine 0.76 mg/dl Est Creatinine Clear Calc Drug Dose 36.3 ml/min Estimated GFR () 82.3 Estimated GFR (Non- 71.0 BUN/Creatinine Ratio 17.3 Random Glucose 94 mg/dl Calcium Level 8.0 mg/dl Magnesium Level 2.1 mg/dl Assessment and Plan 86yo female: 1. right-sided MCA territory stroke with resulting left-sided hemiparesis - carotid duplex and echo w/o source for stroke. MRI brain confirms MCA territory stroke MRA brain with right MCA thrombus tele w/o a. fib cont high-intensity statin for hyperlipidemia. use plavix for secondary stroke prevention quit smoking PT, OT, speech 2. e. coli UTI - follow cx, cont rocephin. 3. HTN - allow permissive HTN in the setting of #1 above; thus, cont to hold amlodipine. 4. tobacco dependence - nicoderm patch. 5. hypoglycemia - resolved; eating well; d/c fluids 6. FEN - stop fluids, lytes stable diet as tolerated 7. hypokalemia - resolved. 8. acute kidney injury in setting of CKD stage 3 - Cr now at baseline 9. DVT proph - heparin TID. 10. NSVT on monitor - no Rx; mag/K normal; observe overnight again on tele echo w/o structural heart disease son updated at bedside today Continued [facility] stay due to: ambulation difficulties Discharge planning: uncertain
[2017-03-06] VITALS (7 sets, daily range): BP systolic 140–178; BP diastolic 62–80; PULSE 57–69; TEMP 36.4–37.1; O2SAT 95–99
[2017-03-06] MEDS ORDERED: LORAZEPAM 0.5 MG TAB PO STA (00:22)
[2017-03-06] MEDS ORDERED: LORAZEPAM 0.5 MG TAB ONE (00:38)
[2017-03-06] MEDS: HEPARIN SOD 5000 UNIT/0.5 ML CARP SQ SCH ×4 (00:42→22:16)
[2017-03-06 06:14] LABS: BASO % 1.5 %; BASO ABS # 0.05 K/uL (0-0.2); COMPLETE YES; EOS % 3.8 %; HEMATOCRIT 33.4 % (37-47); IG% 0.3 %; LYMPH % 37.1 %; LYMPH ABS # 1.26 K/uL (1.2-3.4); MEAN CELL VOLUME 90.5 fL (80-100); MEAN CORPUSCULAR HEMOGLOBIN 29.5 pg (25-34); MEAN CORPUSCULAR HGB CONC 32.6 g/dl (32-36); MEAN PLATELET VOLUME 8.6 fL (7.4-10.4); MONO % 17.1 %; NEUT % 40.2 %; PLATELET COUNT 278 K/uL (130-400); RED BLOOD COUNT 3.69 M/uL (4.2-5.4)
[2017-03-06] MEDS: CEFTRIAXONE SOD INJ 1 GM in DEXTROSE 5% ADD-VANTAGE 50ML 50 ML IV SCH (06:16)
[2017-03-06 07:03] LABS: BUN/CREATININE RATIO 17.1 (10-20); CALCIUM 8.2 mg/dl (8.5-10.1); CREATININE 0.7 mg/dl (0.60-1.20); POTASSIUM 3.4 mmol/L (3.5-5.1)
[2017-03-06] MEDS: NICOTINE 14 MG/24 HR TDSY TD SCH (07:53)
[2017-03-06] MEDS: CLOPIDOGREL BISULFATE 75 MG TAB PO SCH (07:53)
[2017-03-06] MEDS: ATORVASTATIN 40 MG TAB PO SCH (07:53)
[2017-03-06] MEDS: POLYETHYLENE (MIRALAX) 17 GM PACK PO SCH (08:51)
[2017-03-06] MEDS: POTASSIUM CHLORIDE 20 MEQ TABCR PO SCH (08:51)
--- NOTE | 2017-03-06 20:25 | Progress Note ---
Subjective Date of Service: March 06, 2017. Subjective Pt evaluation today including: conversation w/ patient, conversation w/ family (son by phone), physical exam, chart review, lab review, review of inpatient medication list Pain: denies PO Intake: excellent Voiding: incontinence tele overnight - no a. fib/flutter/NSVT she feels good, denies any complaints did better with PT today Problem List Medical Problems: (1) Acute CVA (cerebrovascular accident) Status: Acute (2) Head injury Status: Acute (3) Scalp laceration Status: Acute Review of Systems Constitutional: No fever Respiratory: No cough, No shortness of breath Cardiac: No chest pain Abdomen: No pain Objective Vital Signs Date Time Temp Pulse Resp B/P Pulse Ox O2 Delivery O2 Flow Rate FiO2 03/06/17 18:11 Room Air 03/06/17 14:42 37.0 58 18 173/71 98 Room Air 03/06/17 11:29 Room Air 03/06/17 11:12 164/80 03/06/17 11:09 36.8 57 18 178/73 99 Room Air 03/06/17 10:39 36.4 69 20 95 03/06/17 08:00 Room Air 03/06/17 07:34 36.4 69 20 162/69 95 Room Air 03/06/17 04:00 Room Air 03/06/17 03:40 37.0 62 16 140/62 95 Room Air 03/06/17 00:04 37.1 66 22 154/78 96 Room Air 03/05/17 23:59 Room Air Physical Exam General Appearance: no apparent distress, + pertinent finding (she appears to have less neglect of the left side) ENT: pharynx normal Neck: no JVD Respiratory/Chest: no respiratory distress, no accessory muscle use, + pertinent finding (course BS b/l ) Cardiovascular: regular rate, rhythm, no gallop, no murmur Abdomen: normal bowel sounds, non tender, soft, no organomegaly Extremities: no pedal edema Neurologic/Psychiatric: alert, oriented x 3, + pertinent finding (scant LUE weakness; LLE appears close to 5/5; RUE/RLE - 5/5; no facial droop; speech fluent ) Laboratory Results Last 24 Hours Test 03/06/17 05:22 White Blood Count 3.40 K/uL Red Blood Count 3.69 M/uL Hemoglobin 10.9 g/dL Hematocrit 33.4 % Mean Corpuscular Volume 90.5 fL Mean Corpuscular Hemoglobin 29.5 pg Mean Corpuscular Hemoglobin Concent 32.6 g/dl Platelet Count 278 K/uL Mean Platelet Volume 8.6 fL Neutrophils (%) (Auto) 40.2 % Lymphocytes (%) (Auto) 37.1 % Monocytes (%) (Auto) 17.1 % Eosinophils (%) (Auto) 3.8 % Basophils (%) (Auto) 1.5 % Neutrophils # (Auto) 1.37 K/uL Lymphocytes # (Auto) 1.26 K/uL Monocytes # (Auto) 0.58 K/uL Eosinophils # (Auto) 0.13 K/uL Basophils # (Auto) 0.05 K/uL RDW Standard Deviation 49.8 fL RDW Coefficient of Variation 15.0 % Immature Granulocyte % (Auto) 0.3 % Immature Granulocyte # (Auto) 0.01 K/uL Sodium Level 139 mmol/L Potassium Level 3.4 mmol/L Chloride Level 107 mmol/L Carbon Dioxide Level 24 mmol/L Anion Gap 8.0 mmol/L Blood Urea Nitrogen 12 mg/dl Creatinine 0.70 mg/dl Est Creatinine Clear Calc Drug Dose 39.3 ml/min Estimated GFR () 90.9 Estimated GFR (Non- 78.5 BUN/Creatinine Ratio 17.1 Random Glucose 74 mg/dl Calcium Level 8.2 mg/dl Assessment and Plan 86yo female: 1. 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 carotid duplex and echo w/o source for stroke. MRI brain confirmed MCA territory stroke MRA brain with right MCA thrombus tele w/o a. fib; had short run of NSVT vs a.fib w/ aberrancy - suspect NSVT cont high-intensity statin for hyperlipidemia. use plavix for secondary stroke prevention quit smoking PT, OT, speech likely needs rehab 2. e. coli UTI - d/c rocephin, change to keflex and Rx for 4 more days 3. HTN - allow permissive HTN today and resume amlodipine tomorrow depending on BP readings 4. tobacco dependence - nicoderm patch. 5. hypoglycemia - resolved 6. FEN - eating well, lytes stable but replace K 7. hypokalemia - replace, repeat in am 8. acute kidney injury in setting of CKD stage 3 - Cr now at baseline 9. DVT proph - heparin TID. 10. NSVT on monitor - no Rx; mag/K normal; echo w/o structural heart disease no recurrence since d/c telemetry move to med/surg son updated by phone hopefully to rehab next 48 hrs Continued [facility] stay due to: ambulation difficulties Discharge planning: uncertain
[2017-03-07 00:13] VITALS: BP 128/78; PULSE 71; TEMP 37.1; O2SAT 96
[2017-03-07 05:58] LABS: HEMATOCRIT 33.4 % (37-47); MEAN CORPUSCULAR HEMOGLOBIN 31.1 pg (25-34); MEAN CORPUSCULAR HGB CONC 34.1 g/dl (32-36); MEAN PLATELET VOLUME 9.1 fL (7.4-10.4); PLATELET COUNT 278 K/uL (130-400); RED BLOOD COUNT 3.67 M/uL (4.2-5.4); WHITE BLOOD COUNT 4.01 K/uL (4.8-10.8)
[2017-03-07] MEDS: HEPARIN SOD 5000 UNIT/0.5 ML CARP SQ SCH ×3 (05:59→22:28)
[2017-03-07] MEDS: CEPHALEXIN MONOHYDRATE 500 MG CAP PO SCH ×2 (07:39→20:32)
[2017-03-07] MEDS: CLOPIDOGREL BISULFATE 75 MG TAB PO SCH (07:39)
[2017-03-07] MEDS: ATORVASTATIN 40 MG TAB PO SCH (07:39)
[2017-03-07] MEDS: POTASSIUM CHLORIDE 20 MEQ TABCR PO SCH (07:40)
[2017-03-07] MEDS: POLYETHYLENE (MIRALAX) 17 GM PACK PO SCH (07:40)
[2017-03-07] MEDS: NICOTINE 14 MG/24 HR TDSY TD SCH (07:40)
[2017-03-07 08:34] VITALS: BP 152/74; PULSE 67; TEMP 36.8; O2SAT 97
[2017-03-07 17:10] VITALS: BP 149/76; PULSE 66; TEMP 36.8; O2SAT 98
--- NOTE | 2017-03-07 17:40 | Progress Note ---
Subjective Date of Service: March 07, 2017. Subjective Pt evaluation today including: conversation w/ patient, physical exam, chart review, lab review, review of studies, review of inpatient medication list tried to d/w son - he was present upstairs, i was unable to make it to the room right away, by the time i was there he had left, asked nursing to page when he returned but as far as i know he has not yet; also tried to call, left message she notes she's feeling fine and wants to go home, notes she lives alone but son can help look after her, that she got around OK at home and only fall was about a year ago requiring 11 stitches in her head but other than that she's done well taking care of herself. (appearing to have no insight into change in status with stroke). refusing to discuss rehab, also not threatening to leave AMA however. wont entirely discuss why she's refusing rehab but in conversations she loosely references having to take care of things at home, pay bills, etc Problem List Medical Problems: (1) Acute CVA (cerebrovascular accident) Status: Acute (2) Head injury Status: Acute (3) Scalp laceration Status: Acute Review of Systems ros otherwise negative except for as above as best can be ascertained Objective Vital Signs Date Time Temp Pulse Resp B/P Pulse Ox O2 Delivery O2 Flow Rate FiO2 03/07/17 17:10 36.8 66 18 149/76 98 Room Air 03/07/17 15:38 Room Air 03/07/17 08:34 36.8 67 18 152/74 97 Room Air 03/07/17 07:50 Room Air 03/07/17 00:13 37.1 71 20 128/78 96 Room Air 03/07/17 00:00 Room Air 03/06/17 21:50 Room Air 03/06/17 18:11 Room Air Physical Exam General Appearance: no apparent distress Eyes: EOMI ENT: hearing grossly normal Neck: trachea midline Respiratory/Chest: no respiratory distress, no accessory muscle use Neurologic/Psychiatric: 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, no motor/sensory deficits ( maybe slight L sided weakness), normal mood/affect (appearing impulsive and lacking insight into having just had a stroke), + pertinent finding (very off balance gait even with walker, slow and shuffling, walks right into wall and then stands as though uncertain what to do next) Skin: normal color, warm/dry Laboratory Results Last 24 Hours Test 03/07/17 05:18 White Blood Count 4.01 K/uL Red Blood Count 3.67 M/uL Hemoglobin 11.4 g/dL Hematocrit 33.4 % Mean Corpuscular Volume 91.0 fL Mean Corpuscular Hemoglobin 31.1 pg Mean Corpuscular Hemoglobin Concent 34.1 g/dl RDW Standard Deviation 50.8 fL RDW Coefficient of Variation 15.1 % Platelet Count 278 K/uL Mean Platelet Volume 9.1 fL Potassium Level 3.8 mmol/L Vitamin B12 Level 992 pg/mL Folate > 24.00 ng/mL Assessment and Plan 1. 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 MRI brain confirmed MCA territory stroke MRA brain with right MCA thrombus tele w/o a. fib; had short run of SVT vs a.fib w/ aberrancy - suspicion is towards SVT - will want outpt holter/event monitoring continue statin for hyperlipidemia. /plaque stabilization plavix for secondary stroke prevention/antiplatelet smoke cessation PT, OT, speech extensive d/w pt including walking in the room with her (quite unstable) about utter lack of safe dispo home - right now enormous fall risk and appears frail enough to likely suffer consequences from a fall that could be fatal or mickey her of any chance of independence moving forward. she seems to totally lack insight into this, in no small part because she seems to lack awareness of her weakness/stroke/etc -tried to d/w son about dispo as well - see above -d/w case management - pt amenable to home health, but in her current state this would not be a safe dispo 2. e. coli UTI - keflex and Rx for 3 more days 3. HTN - allow permissive HTN - is improving some on her own. resume amlodipine @5mg in AM, then titrate up to home dose at discharge 4. tobacco dependence - nicoderm patch. 5. hypoglycemia - resolved 6. FEN - eating well 7. hypokalemia - replaced 8. acute kidney injury in setting of CKD stage 3 - Cr now at baseline. ??true CKD vs "age adjusted normal" given how much age plays a role in her eGFR as opposed to her creatinine. if GFR were to be truly necessary, would check 24hr CrCl 9. DVT proph - heparin TID. 10. SVT on monitor - no Rx; mag/K normal; echo w/o structural heart disease no recurrence since outpt monitoring rehab once available Continued [facility] stay due to: ambulation difficulties (hemineglect, needing safe dispo)
[2017-03-08 00:17] VITALS: BP 153/74; PULSE 66; TEMP 36.8; O2SAT 97
[2017-03-08] MEDS: HEPARIN SOD 5000 UNIT/0.5 ML CARP SQ SCH ×3 (05:47→20:54)
[2017-03-08 07:22] VITALS: BP 174/70; PULSE 60; TEMP 36.8; O2SAT 96
--- NOTE | 2017-03-08 08:14 | Neurology Progress Notes ---
Neurology Progress Note Date of Service March 08, 2017. Subjective Patient has no complaint of pain or headache. She is not dizzy. Nursing reports no new problems although notes from yesterday reveals the patient was reluctant to go to the rehabilitation hospital and asked to go home The patient has mild anemia but a reasonable glucose and admission total cholesterol off any medication was 186. Objective Date Time Temp Pulse Resp B/P Pulse Ox O2 Delivery O2 Flow Rate FiO2 03/08/17 07:22 36.8 60 18 174/70 96 Room Air 03/08/17 00:17 36.8 66 20 153/74 97 Room Air 03/08/17 00:00 Room Air 03/07/17 20:00 Room Air 03/07/17 17:10 36.8 66 18 149/76 98 Room Air 03/07/17 15:38 Room Air 03/07/17 08:34 36.8 67 18 152/74 97 Room Air Imaging: MRI OF THE BRAIN WITHOUT CONTRAST CLINICAL HISTORY: Right sided MCA territory stroke. COMPARISON STUDY: Head CT March 03, 2017. TECHNIQUE: Utilizing a 1.5 Jyoti magnet and dedicated coil, multiplanar, multiecho imaging of the brain was performed without IV contrast. FINDINGS: There is a large focus of restricted diffusion within the right temporal, parietal and frontal lobes consistent with a large right MCA territory infarct. There is minimal mass effect. There is no evidence of hemorrhagic conversion. Slight compression of the right lateral ventricle is noted. Basilar cisterns are patent. There are no extra axial collections. This study is moderately, must by motion artifact. White matter T2 hyperintense foci suggest small vessel disease. No intracranial masses are identified on this unenhanced study. IMPRESSION: 1. Large acute to subacute right MCA territory infarct. Mild mass effect. No hemorrhage. 2. Study moderately compromised by motion artifact. Electronically signed by: Mahin Moralez M.D. 03/04/2017 9:17 PM Exam: She was sleeping but was easily arousable with voice. She was slightly slow with her responses but fairly accurate and followed one-step commands fairly well. Extraocular eye muscles seemed intact but she had a dense left homonymous hemianopsia present. There may been a slight facial droop at the corner of the mouth on the left. Pupils were 5 mm bilaterally and reacted to light. Tongue was midline. With outstretched arms there was no significant drift. There is no resting, postural, or action tremors. There was reasonable facility in the hands bilaterally. Strength was fairly symmetrical in the arms and legs bilaterally both proximally and distally although the left may have been slightly weaker than the right in general. Reflexes were trace to absent in all 4 limbs. Toes were downgoing with plantar stimulation on the right and upgoing on the left. With double simultaneous stimulation she tended to neglect the left arm and leg. Current Inpatient Medications Medications (Trade) Dose Ordered Sig/Paco Route Start Time Stop Time Status Last Admin Dose Admin Atorvastatin Calcium (Lipitor Tab) 40 mg QAM PO 03/04/17 09:00 04/03/17 08:59 03/07/17 07:39 40 MG Miscellaneous Information (Pharmacist Discharge Med Rec Consult) 1 ea UD PRN N/A 03/03/17 18:30 04/02/17 18:29 Nicotine (Nicoderm Cq 14MG Patch) 1 patch QAM TD 03/04/17 09:00 04/03/17 08:59 03/07/17 07:40 1 PATCH Miscellaneous (Remove Nicoderm Patch) 1 ea HS N/A 03/03/17 21:00 04/02/17 20:59 03/07/17 20:34 1 EA Heparin Sodium (Porcine) (Heparin Sq 5000 Unit/0.5ml) 5,000 unit Q8 SQ 03/04/17 16:00 04/03/17 15:59 03/08/17 05:47 5,000 UNIT Clopidogrel Bisulfate (plAVix TAB) 75 mg QAM PO 03/05/17 09:00 04/04/17 08:59 03/07/17 07:39 75 MG Cephalexin Monohydrate (Keflex Cap) 500 mg BID PO 03/07/17 08:00 03/11/17 08:59 03/07/17 20:32 500 MG Polyethylene (Miralax Powder Packet) 17 gm DAILY PO 03/06/17 09:00 04/05/17 08:59 03/07/17 07:40 17 GM Potassium Chloride (Klor-Con Tab) 20 meq QAM PO 03/06/17 09:00 04/05/17 08:59 03/07/17 07:40 20 MEQ Amlodipine Besylate (Norvasc Tab) 5 mg QAM PO 03/08/17 08:00 04/07/17 07:59 Impression 1. Rather large, acute, right middle cerebral artery ischemic stroke The patient currently has a significant left homonymous hemianopsia as well as left sided neglect She does not have a significant hemisensory deficit nor any significant hemiplegia. She does have some slight weakness on the left side however. The etiology of this stroke is likely ischemic and her risk factors include age and mild hypertension. The patient does not have good insight into her deficits MR angiography of the head was unremarkable. Carotid ultrasound was unremarkable. Echocardiogram was unremarkable. Plan 1. Continue with clopidogrel 75 mg daily. There is some medical evidence to suggest that in the first 2 or 3 months, the combination of 81 mg aspirin plus 75 mg clopidogrel is beneficial, which can be done in this patient, but also clopidogrel alone is reasonable. 2. The patient needs rehabilitation and would likely benefit from a inpatient rehabilitation stay. 3. No further driving in lieu of the homonymous hemianopsia She may benefit from an ophthalmology consult as an outpatient to monitor this. 4. Otherwise, I have no further neurologic testing or treatment recommendations to make at this time. Please contact me if I can be of further assistance. She can be followed by Dr. Bar as an outpatient in one to 2 weeks if desired. I spoke with Dr. Hylton regarding this case including differential diagnosis and treatment options.
[2017-03-08] MEDS: CEPHALEXIN MONOHYDRATE 500 MG CAP PO SCH ×2 (09:11→20:52)
[2017-03-08] MEDS: POTASSIUM CHLORIDE 20 MEQ TABCR PO SCH (09:11)
[2017-03-08] MEDS: ATORVASTATIN 40 MG TAB PO SCH (09:11)
[2017-03-08] MEDS: CLOPIDOGREL BISULFATE 75 MG TAB PO SCH (09:12)
[2017-03-08] MEDS: NICOTINE 14 MG/24 HR TDSY TD SCH (09:12)
[2017-03-08] MEDS: POLYETHYLENE (MIRALAX) 17 GM PACK PO SCH (09:16)
[2017-03-08] MEDS: AMLODIPINE BESYLATE 5 MG TAB PO SCH (09:16)
[2017-03-08 09:20] VITALS: BP 149/68; PULSE 73
--- NOTE | 2017-03-08 10:03 | Hospitalist Progress Note ---
Hospitalist Progress Note Date of Service March 08, 2017. (Sabiha Wallace ., PAMyrnaC) Subjective Pt evaluation today including: conversation w/ patient, conversation w/ family (Son), physical exam, chart review, lab review, review of studies, review of inpatient medication list Voiding: no voiding problems, no incontinence Patient states she is feeling well this AM. She is sitting up in bed, eating breakfast w/ no complications. Patient denies any fever, chills, sweats, lightheadedness, dizziness, vision changes, CP, palpitations, edema, SOB, wheezing, cough, abdominal pain, nausea, vomiting, diarrhea, urinary symptoms, melena, numbness/tingling, weakness, muscle/joint pain, anxiety/depression, active bleeding, or new skin discoloration/changes. Had a long discussion w/ patient about going to rehab vs returning home. Her main concern at this time is that she won't ever be able to leave rehab and return home. She would like to discuss w/ Wanda (close friend from [place]; she is an RN; to visit patient today) and son. Will discuss w/ Wanda when arrives to hospital per patient's request. Discussed disposition w/ son. He is in agreement that patient cannot return home and needs to go to rehab. He is to visit patient this afternoon to further discuss w/ mother. (Sabiha Wallace ., KEAGANC) Medications Current Inpatient Medications Medications (Trade) Dose Ordered Sig/Paco Route Start Time Stop Time Status Last Admin Dose Admin Atorvastatin Calcium (Lipitor Tab) 40 mg QAM PO 03/04/17 09:00 04/03/17 08:59 03/08/17 09:11 40 MG Miscellaneous Information (Pharmacist Discharge Med Rec Consult) 1 ea UD PRN N/A 03/03/17 18:30 04/02/17 18:29 Nicotine (Nicoderm Cq 14MG Patch) 1 patch QAM TD 03/04/17 09:00 04/03/17 08:59 03/08/17 09:12 1 PATCH Miscellaneous (Remove Nicoderm Patch) 1 ea HS N/A 03/03/17 21:00 04/02/17 20:59 03/07/17 20:34 1 EA Heparin Sodium (Porcine) (Heparin Sq 5000 Unit/0.5ml) 5,000 unit Q8 SQ 03/04/17 16:00 04/03/17 15:59 03/08/17 05:47 5,000 UNIT Clopidogrel Bisulfate (plAVix TAB) 75 mg QAM PO 03/05/17 09:00 04/04/17 08:59 03/08/17 09:12 75 MG Cephalexin Monohydrate (Keflex Cap) 500 mg BID PO 03/07/17 08:00 03/11/17 08:59 03/08/17 09:11 500 MG Polyethylene (Miralax Powder Packet) 17 gm DAILY PO 03/06/17 09:00 04/05/17 08:59 03/08/17 09:16 17 GM Potassium Chloride (Klor-Con Tab) 20 meq QAM PO 03/06/17 09:00 04/05/17 08:59 03/08/17 09:11 20 MEQ Amlodipine Besylate (Norvasc Tab) 5 mg QAM PO 03/08/17 08:00 04/07/17 07:59 03/08/17 09:16 5 MG (Sabiha Wlalace PA-C) Objective Vital Signs Date Time Temp Pulse Resp B/P Pulse Ox O2 Delivery O2 Flow Rate FiO2 03/08/17 09:20 73 149/68 03/08/17 07:22 36.8 60 18 174/70 96 Room Air 03/08/17 00:17 36.8 66 20 153/74 97 Room Air 03/08/17 00:00 Room Air 03/07/17 20:00 Room Air 03/07/17 17:10 36.8 66 18 149/76 98 Room Air 03/07/17 15:38 Room Air (Sabiha Wallace PA-C) Physical Exam General Appearance: no apparent distress Eyes: PERRL ENT: hearing grossly normal Neck: supple Respiratory/Chest: lungs clear, no respiratory distress, no accessory muscle use Cardiovascular: regular rate, rhythm Abdomen: normal bowel sounds, non tender, soft Extremities: no pedal edema, no calf tenderness Neurologic/Psychiatric: alert, + motor weakness (very slight left sided weakness noted ), + disoriented (to time ), + pertinent finding (Oriented to person/place ) Skin: normal color, warm/dry, no rash (Sabiha Wallace PA-C) Assessment and Plan This is a 86 y/o female with PMHx of hyperlipidemia, hypertension, right breast mucinous adenocarcinoma s/p lumpectomy in 2011, hx R nephrectomy 2013, chronic tobacco abuse, who presents with new acute right CVA involving the right MCA. She experienced acute onset of weakness which began at approximately 9 AM on Right MCA CVA: - Admit to telemetry for cardiac monitoring -- Short run of SVT vs a.fib w/ aberrancy - suspicion is towards SVT- outpt holter/event monitoring -- Transferred to med/surg on 03/06 - Admitted w/ stroke protocol and neuro checks - Carotid duplex and echo w/o source for stroke - MRI brain confirmed MCA territory stroke - MRA brain with right MCA thrombus - Stroke protocols in place, patient is outside the TPA window - Speech therapy and PT/OT consulted- recommending rehab - Lipid panel reviewed, hemoglobin A1c 6.3% - B12 and folate checked - Atorvastatin 40 mg daily and Plavix 75 mg daily - Consult neurology- appreciate recommendations -- F/u w/ Dr. Bar in 2 weeks outpatient E. coli UTI: Keflex 500 mg BID (last day of treatment 03/10) HTN- allow permissive HTN: - Amlodipine 5 mg resumed on 03/08- resume home dose of 10 mg daily at discharge CKD stage III- STABLE Hypokalemia- RESOLVED: Continue 20 mEq KCL supplement Hypoglycemia- RESOLVED h/o breast cancer- right breast mucinous adenocarcinoma s/p lumpectomy in 2012: s/p R nephrectomy in 2012- STABLE Chronic tobacco use and second hand exposure: - Smoking cessation counselling - Nicotine 14 mg patch ordered DVT prophylaxis: TEDs/SCDs, Heparin TID Code Status: LEVEL I, FULL Dispo: - Patient is medically stable for discharge to rehab; unsafe to return home - field services director following (Sabiha Wallace ., PA-C) i personally examined pt and verified all baca points w Dominik ESTRELLA d/w son - he's in agreement that going home would be unsafely dangerous. agrees rehab best dispo. vitals noted nad talking on phone, breathing unlabored MCA region CVA -secondary risk reduction -stable for rehab once able to be arranged (Alonso Hylton D.O.)
[2017-03-08 11:46] VITALS: BP 146/79; O2SAT 95
[2017-03-08] MEDS ORDERED: PLV75 PO (15:04)
[2017-03-08] MEDS ORDERED: KFL500 PO (15:04)
[2017-03-08] MEDS ORDERED: LPT40 PO (15:04)
--- NOTE | 2017-03-08 15:05 | Discharge Instructions ---
Discharge Instructions Date of Service March 08, 2017. Admission Reason for Admission: Cerebrovascular Accident Involving Right Middle Discharge Discharge Diagnosis / Problem: stroke - see facility specific discharge instructions as well Discharge Goals Goal(s): Diagnostic testing, Therapeutic intervention Activity Recommendations Activity Limitations: as noted below (as per other discharge instructions) . Instructions / Follow-Up Instructions / Follow-Up Risk Factors for Stroke: You can reduce your chances of stroke by working with your medical provider to adopt a healthy lifestyle. Some specific ways to lower your chance of stroke are: * If you are a smoker, now is the time to stop smoking cigarettes * If you are diabetic, improve the control of your blood sugars * Avoid excessive amounts of alcohol * Control high blood pressure * Lose weight if you are overweight * Be sure to lead an active lifestyle * Eat a healthy diet low in salt, cholesterol and fat You should know about other risk factors for stroke that you are unable to control. These include: * Age 55 years or older * Male gender * Certain racial groups: , or / * Family History of Stroke, Mini stroke or Heart Attack * Sickle Cell Disease Follow Up: It is important for you to keep your follow up appointments with your medical provider. Current Hospital Diet Patient's current hospital diet: AHA Diet (Heart Healthy) Discharge Diet Recommended Diet: AHA Diet (Heart Healthy) Pending Studies Studies pending at discharge: no Laboratory Results Hemoglobin A1c Test 03/03/17 17:15 Range/Units Estimated Average Glucose 134 mg/dl Hemoglobin A1c 6.3 H 4.5-5.6 % Lipid Panel Test 03/04/17 05:35 Range/Units Triglycerides Level 64 0-150 mg/dl Cholesterol Level 187 0-200 mg/dl HDL Cholesterol 66 mg/dl Cholesterol/HDL Ratio 2.8 LDL Cholesterol, Calculated 108 mg/dl Medical Emergencies . Who to Call and When: Medical Emergencies: Call 911 immediately if you experience any of the following warning signs and symptoms of Stroke: * Sudden numbness or weakness of the face, arm or leg, especially on one side of the body * Sudden confusion, trouble speaking or understanding * Sudden trouble seeing in one or both eyes * Sudden trouble walking, dizziness, loss of balance or coordination * Sudden severe headache with no cause Do not delay calling 911 if you experience any warning signs or symptoms of a stroke. Delay in seeking medical attention may affect what treatments can be given to you. . Non-Emergent Contact Non-Emergency issues call your: Primary Care Provider . . "Provider Documentation" section prepared by Alonso Hylton. . Stroke Core Measures Reason no t-PA for Stroke: Treatment not indicated Reason no antithrom by day 2: Treatment provided - N/A Reason no antithrom at D/C: Treatment provided - N/A Reason no statin at D/C: Treatment provided - N/A Reason no anticoag w/a fib: Treatment not indicated VTE Core Measure Inpt VTE Proph given/why not?: Unfractionated heparin SQ, T.E.D. Stockings, SCD 's
--- NOTE | 2017-03-08 15:06 | Discharge Instructions ---
Discharge Instructions Date of Service March 08, 2017. Admission Reason for Admission: Cerebrovascular Accident Involving Right Middle Discharge Discharge Diagnosis / Problem: MCA CVA. L sided visual field cuts, and moderate L hemineglect Discharge Goals Goal(s): Diagnostic testing, Therapeutic intervention Activity Recommendations Activity Level: Assistance Required Therapies: Physical Therapy, Occupational Therapy, Speech Therapy . Additional Information Patient informed of condition: Yes Advance Directives: No DNR: No Level of Care: Acute Rehab Communicable Disease: No Prognosis: Improving Current Hospital Diet Patient's current hospital diet: AHA Diet (Heart Healthy) Discharge Diet Recommended Diet: AHA Diet (Heart Healthy) Pending Studies Studies pending at discharge: no Laboratory Results Hemoglobin A1c Test 03/03/17 17:15 Range/Units Estimated Average Glucose 134 mg/dl Hemoglobin A1c 6.3 H 4.5-5.6 % Lipid Panel Test 03/04/17 05:35 Range/Units Triglycerides Level 64 0-150 mg/dl Cholesterol Level 187 0-200 mg/dl HDL Cholesterol 66 mg/dl Cholesterol/HDL Ratio 2.8 LDL Cholesterol, Calculated 108 mg/dl Medical Emergencies . Who to Call and When: Medical Emergencies: If at any time you feel your situation is an emergency, please call 911 immediately. . Non-Emergent Contact Non-Emergency issues call your: Primary Care Provider . . "Provider Documentation" section prepared by Alonso Hylton. . Core Measure Problem Core Measures: Stroke Stroke Core Measures Reason no t-PA for Stroke: Treatment not indicated Reason no antithrom by day 2: Treatment provided - N/A Reason no antithrom at D/C: Treatment provided - N/A Reason no statin at D/C: Treatment provided - N/A Reason no anticoag w/a fib: Treatment not indicated
[2017-03-08 15:08] VITALS: BP 156/74; PULSE 59; TEMP 37.1; O2SAT 98
[2017-03-08 23:53] VITALS: BP 153/82; PULSE 70; TEMP 36.6; O2SAT 98
[2017-03-09] MEDS ORDERED: LORAZEPAM 0.5 MG TAB PO STA (00:09)
[2017-03-09] MEDS: HEPARIN SOD 5000 UNIT/0.5 ML CARP SQ SCH ×2 (06:14→13:52)
[2017-03-09 07:38] VITALS: BP 175/79; PULSE 57; TEMP 36.6; O2SAT 98
[2017-03-09] MEDS ORDERED: LISINOPRIL 10 MG TAB PO SCH (08:00)
[2017-03-09] MEDS: ATORVASTATIN 40 MG TAB PO SCH (08:24)
[2017-03-09] MEDS: CLOPIDOGREL BISULFATE 75 MG TAB PO SCH (08:24)
[2017-03-09] MEDS: NICOTINE 14 MG/24 HR TDSY TD SCH (08:24)
[2017-03-09] MEDS: POTASSIUM CHLORIDE 20 MEQ TABCR PO SCH (08:24)
[2017-03-09] MEDS: POLYETHYLENE (MIRALAX) 17 GM PACK PO SCH (08:24)
[2017-03-09] MEDS: AMLODIPINE BESYLATE 5 MG TAB PO SCH (08:24)
[2017-03-09] MEDS: CEPHALEXIN MONOHYDRATE 500 MG CAP PO SCH (08:24)
--- NOTE | 2017-03-09 08:56 | Discharge Instructions ---
Discharge Instructions Date of Service March 09, 2017. Admission Reason for Admission: Cerebrovascular Accident Involving Right Middle Discharge Discharge Diagnosis / Problem: CVA involving R MCA Discharge Goals Goal(s): Decrease discomfort, Improve function, Increase independence, Learn about illness, Diagnostic testing, Therapeutic intervention, Prevent Disease Progression Activity Recommendations Activity Level: Assistance Required Therapies: Physical Therapy, Occupational Therapy, Speech Therapy . Additional Information Patient informed of condition: Yes Advance Directives: No DNR: No Level of Care: Acute Rehab Communicable Disease: No Prognosis: Stable Iniguez Catheter: No Instructions / Follow-Up Instructions / Follow-Up Activity Recommendations: See above Activation of Emergency Medical System: Call 911, immediately, if you experience any of the following: Warning Signs and Symptoms of Stroke: * Sudden numbness or weakness of the face, arm or leg, especially on one side of the body * Sudden confusion, trouble speaking or understanding * Sudden trouble seeing in one or both eyes * Sudden trouble walking, dizziness, loss of balance or coordination * Sudden severe headache with no cause Do not delay calling 911 if you experience any warning signs or symptoms of a stroke. Delay in seeking medical attention may affect what treatments can be given to you. Risk Factors for Stroke: You can reduce your chances of stroke by working with your medical provider to adopt a healthy lifestyle. Some specific ways to lower your chance of stroke are: * If you are a smoker, now is the time to stop smoking cigarettes * If you are diabetic, improve the control of your blood sugars * Avoid excessive amounts of alcohol * Control high blood pressure * Lose weight if you are overweight * Be sure to lead an active lifestyle * Eat a healthy diet low in salt, cholesterol and fat You should know about other risk factors for stroke that you are unable to control. These include: * Age 55 years or older * Male gender * Certain racial groups: , or / * Family History of Stroke, Mini stroke or Heart Attack * Sickle Cell Disease Follow Up: It is important for you to keep your follow up appointments with your medical provider. Please follow-up with [facility] provider within 24-48 hrs Please follow-up with PCP within 1 week of discharge from [facility] Neurology suggest 2 week follow-up with Dr. Bar if desired by patient Please follow-up/keep all of your subspecialty appointments Current Hospital Diet Patient's current hospital diet: AHA Diet (Heart Healthy) Discharge Diet Recommended Diet: AHA Diet (Heart Healthy) Pending Studies Studies pending at discharge: no Physician Orders On Transfer Special Precautions: Fall precautions Dressing Changes: None IV Therapy: None Vital Signs: Routine Additional Orders: E. Coli UTI- last day of Keflex treatment on 03/10 HTN: Continue Amlodipine 10 mg daily + Lisinopril 10 mg daily (added on 03/09) CVA: Atorvastatin 40 mg daily + Plavix 75 mg daily; ASA was discontinued per neurology recommendations Tobacco Abuse: Nicotine 14 mg patch Laboratory Results Hemoglobin A1c Test 03/03/17 17:15 Range/Units Estimated Average Glucose 134 mg/dl Hemoglobin A1c 6.3 H 4.5-5.6 % Lipid Panel Test 03/04/17 05:35 Range/Units Triglycerides Level 64 0-150 mg/dl Cholesterol Level 187 0-200 mg/dl HDL Cholesterol 66 mg/dl Cholesterol/HDL Ratio 2.8 LDL Cholesterol, Calculated 108 mg/dl Medical Emergencies . Who to Call and When: Medical Emergencies: If at any time you feel your situation is an emergency, please call 911 immediately. . Non-Emergent Contact Non-Emergency issues call your: Primary Care Provider . . "Provider Documentation" section prepared by Sabiha Wallace. . Core Measure Problem Core Measures: Stroke Stroke Core Measures Reason no t-PA for Stroke: Treatment not indicated Reason no antithrom by day 2: Treatment provided - N/A Reason no antithrom at D/C: Treatment provided - N/A Reason no statin at D/C: Treatment provided - N/A Reason no anticoag w/a fib: Treatment not indicated
[2017-03-09] MEDS ORDERED: LSN10 PO (08:57)
[2017-03-09] MEDS ORDERED: KFL500 PO (08:58)
--- NOTE | 2017-03-09 09:07 | Discharge Summary ---
Discharge Summary Date of Service March 09, 2017. (Sabiha Wallace, ROXANA) Discharge Summary Admission Date: March 03, 2017 at 18:36 Discharge Date: March 09, 2017 Discharge Disposition: Rehab Principal Diagnosis: CVA involving R MCA Problems/Secondary Diagnoses: Right MCA CVA E. 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 Comparison: 02/29/2016 Findings: The paranasal sinuses and mastoid air cells are clear. Acute/subacute infarct of the right middle cerebral arterial distribution. Moderate effacement of the mid to superior right cerebral sulci. No acute intracranial hemorrhage. No midline shift. Pre-existing age-related chronic small vessel and atrophic change. Impression: A relatively large acute/subacute right cerebral infarct involving the right middle cerebral arterial distribution. No acute intracranial hemorrhage. Electronically signed by: Sudarshan Sun M.D. 03/03/2017 5:41 PM Dictated Date/Time: 03/03/2017 5:38 PM The status of this report is Signed. Draft = Not yet reviewed or approved by Radiologist. Signed = Reviewed and approved by Radiologist. CHEST ONE VIEW PORTABLE CLINICAL HISTORY: Stroke mental status change COMPARISON STUDY: 05/15/2012 FINDINGS: The bones soft tissues and hemidiaphragms are normal. The cardiomediastinal silhouette is normal. The lungs are clear. The pulmonary vasculature is normal. IMPRESSION: Negative chest. Electronically signed by: Sudarshan Sun M.D. 03/03/2017 5:49 PM Dictated Date/Time: 03/03/2017 5:49 PM The status of this report is Signed. Draft = Not yet reviewed or approved by Radiologist. Signed = Reviewed and approved by Radiologist ULTRASOUND OF THE CAROTID ARTERIES CLINICAL HISTORY: Stroke. COMPARISON STUDY: Carotid artery ultrasound dated 06/27/2014. TECHNIQUE: Real-time, grayscale, and color Doppler sonography of the carotid arteries is performed. Images are reviewed in the transverse and longitudinal planes. FINDINGS: Blood pressures were not assessed due to limb restrictions. The carotid arteries are patent bilaterally and demonstrate antegrade flow. There is moderate to advanced echogenic shadowing atherosclerotic plaque seen bilaterally, greatest in the carotid bulbs. Normal doppler arterial waveforms are seen throughout. Velocity measurements are listed below. Common carotid peak systolic velocity (cm/sec): RIGHT: 53 LEFT: 52 ICA proximal peak systolic velocity (cm/sec): RIGHT: 78 LEFT: 72 ICA mid peak systolic velocity (cm/sec): RIGHT: 41 LEFT: 53 ICA distal peak systolic velocity (cm/sec): RIGHT: 36 LEFT: 46 ICA/CC peak systolic ratio: RIGHT: 1.5 LEFT: 1.4 Antegrade flow was shown in the vertebral arteries. The external carotid arteries are patent. IMPRESSION: 1. Atherosclerotic plaque with no sonographic evidence of hemodynamically significant stenosis in the right or left carotid arterial system. 2. Antegrade flow is shown in the vertebral arteries. Electronically signed by: True Roman M.D. 03/04/2017 7:24 AM Dictated Date/Time: 03/04/2017 7:22 AM The status of this report is Signed. Draft = Not yet reviewed or approved by Radiologist. Signed = Reviewed and approved by Radiologist MRA OF THE INTRACRANIAL CIRCULATION WITHOUT CONTRAST CLINICAL HISTORY: Right sided MCA territory stroke. COMPARISON STUDY: None. TECHNIQUE: Utilizing a 1.5 Jyoti magnet and 3-D [id number] technique, unenhanced MRA of the intracranial circulation was obtained. FINDINGS: This study is moderately compromised by motion artifact. There is abrupt cut off of several sylvian branches of the right middle cerebral artery which accounts for the infarct shown on MRI of the brain. The left vertebral artery is dominant. The right vertebral artery is hypoplastic. Sensitivity for detection of small aneurysms is diminished on this exam but none are identified. The left M1, M2, A1 and A2 segments are patent. Posterior circulation is grossly intact. IMPRESSION: 1. Abrupt cut off of several sylvian branches of the right middle cerebral artery which accounts for the acute to subacute infarct shown on MRI of the brain. 2. Study moderately compromised by motion artifact. Electronically signed by: Mahin Moralez M.D. 03/04/2017 9:20 PM Dictated Date/Time: 03/04/2017 9:17 PM The status of this report is Signed. Draft = Not yet reviewed or approved by Radiologist. Signed = Reviewed and approved by Radiologist. MRI OF THE BRAIN WITHOUT CONTRAST CLINICAL HISTORY: Right sided MCA territory stroke. COMPARISON STUDY: Head CT March 03, 2017. TECHNIQUE: Utilizing a 1.5 Jyoti magnet and dedicated coil, multiplanar, multiecho imaging of the brain was performed without IV contrast. FINDINGS: There is a large focus of restricted diffusion within the right temporal, parietal and frontal lobes consistent with a large right MCA territory infarct. There is minimal mass effect. There is no evidence of hemorrhagic conversion. Slight compression of the right lateral ventricle is noted. Basilar cisterns are patent. There are no extra axial collections. This study is moderately, must by motion artifact. White matter T2 hyperintense foci suggest small vessel disease. No intracranial masses are identified on this unenhanced study. IMPRESSION: 1. Large acute to subacute right MCA territory infarct. Mild mass effect. No hemorrhage. 2. Study moderately compromised by motion artifact. Electronically signed by: Mahin Moralez M.D. 03/04/2017 9:17 PM Dictated Date/Time: 03/04/2017 9:13 PM The status of this report is Signed. Draft = Not yet reviewed or approved by Radiologist. Signed = Reviewed and approved by Radiologist ECHOCARDIOGRAM Interpretation Summary * Name: LORELEI CORTEZ Study Date: 03/04/2017 08:19 AM BP: 152/74 mmHg * Patient Location: .2E\S\E204\S\1 HR: 75 * : 1930 (M/d/yyyy) Gender: Female Height: 64 in * Age: 86 yrs Ethnicity: CA Weight: 170 lb * Ordering Physician: Freida Galarza * Referring Physician: Self, Referred * Performed By: Diana Gordillo RDCS * * Reason For Study: Cerebral ischemia/embolus * BSA: 1.8 m2 * -- Conclusions -- * 1. Normal left ventricular size with hyperdynamic systolic function. EF > 70% . No regional wall motion abnormalities. No left ventricular hypertrophy. Type I diastolic dysfunction. * 2. Sclerotic aortic valve without significant stenosis. * 3. Mild aortic regurgitation. * 4. There is mild mitral regurgitation. * 5. Normal estimated right ventricular systolic pressure; RVSP 34 mmHg. Procedure Details * A complete two-dimensional transthoracic echocardiogram was performed (2D, M- mode, Doppler and color flow Doppler). * The study was technically difficult. * There were technical limitations due to patient'sinability to cooperate Left Ventricle * The left ventricle is normal in size. * There is normal left ventricular wall thickness. * Ejection Fraction = >70 %. * The left ventricle is hyperdynamic. * No regional wall motion abnormalities noted. Right Ventricle * The right ventricle is normal in size and function. * The right ventricular systolic function is normal as assessed by tricuspid annular plane systolic excursion (TAPSE) (normal >1.5 cm). Atria * The left atrial size is normal. * Right atrial size is normal. * There is no evidence of atrial septal defect, but resolution does not allow assessment for a patent foramen ovale. Mitral Valve * There is mild to moderate mitral annular calcification. * There is no mitral valve stenosis. * There is mild mitral regurgitation. Tricuspid Valve * The tricuspid valve is not well visualized, but is grossly normal. * There is no tricuspid stenosis. * There is trace tricuspid regurgitation. Aortic Valve * Sclerotic aortic valve without significant stenosis. * Mild aortic regurgitation. Pulmonic Valve * The pulmonary valve is inadequately visualized, but the Doppler data is adequate for interpretation. * There is no pulmonic valvular stenosis. * Trace pulmonic valvular regurgitation. Great Vessels * The aortic root is normal size. Pericardium/Pleural * There is no pericardial effusion. Great Vessels * Mildly dilated IVC with reduced inspiratory collapse. MMode 2D Measurements and Calculations IVSd 0.88 cm LVIDd 4.3 cm LVIDs 2.7 cm LVPWd 0.85 cm IVS/LVPW 1.0 FS 36.0 % EDV(Teich) 82.4 ml ESV(Teich) 28.1 ml EF(Teich) 65.9 % EDV(cubed) 78.7 ml ESV(cubed) 20.7 ml EF(cubed) 73.8 % LV mass(C)d 116.1 grams LV mass(C)dI 63.6 grams/m\S\2 CO(Teich) 3.4 l/min CI(Teich) 1.9 l/min/m\S\2 SV(Teich) 54.3 ml SI(Teich) 29.7 ml/m\S\2 CO(cubed) 3.7 l/min CI(cubed) 2.0 l/min/m\S\2 SV(cubed) 58.0 ml SI(cubed) 31.8 ml/m\S\2 Ao root diam 3.1 cm Ao root area 7.4 cm\S\2 ACS 0.87 cm LA dimension 2.3 cm asc Aorta Diam 3.2 cm LA/Ao 0.74 LVOT diam 2.2 cm LVOT area 3.6 cm\S\2 LVAd ap4 18.4 cm\S\2 LVLd ap4 6.1 cm EDV(MOD-sp4) 46.9 ml LVAs ap4 7.8 cm\S\2 LVLs ap4 4.4 cm ESV(MOD-sp4) 12.8 ml EF(MOD-sp4) 72.7 % LVAd ap2 21.8 cm\S\2 LVLd ap2 7.1 cm EDV(MOD-sp2) 58.4 ml LVAs ap2 8.6 cm\S\2 LVLs ap2 4.8 cm ESV(MOD-sp2) 14.3 ml EF(MOD-sp2) 75.5 % CO(MOD-sp4) 2.1 l/min CI(MOD-sp4) 1.2 l/min/m\S\2 SV(MOD-sp4) 34.1 ml SI(MOD-sp4) 18.7 ml/m\S\2 CO(MOD-sp2) 2.8 l/min CI(MOD-sp2) 1.5 l/min/m\S\2 SV(MOD-sp2) 44.1 ml SI(MOD-sp2) 24.2 ml/m\S\2 Doppler Measurements and Calculations MV E max gerard 82.9 cm/sec MV A max gerard 103.3 cm/sec MV E/A 0.80 MV dec time 0.18 sec Ao V2 max 184.0 cm/sec Ao max PG 13.5 mmHg Ao max PG (full) 8.2 mmHg Ao V2 mean 124.8 cm/sec Ao mean PG 7.1 mmHg Ao mean PG (full) 4.5 mmHg Ao V2 VTI 37.4 cm TYREE(I,A) 2.2 cm\S\2 TYREE(I,D) 2.2 cm\S\2 TYREE(V,A) 2.3 cm\S\2 TYREE(V,D) 2.3 cm\S\2 AI max gerard 327.3 cm/sec AI max PG 42.8 mmHg AI dec slope 164.1 cm/sec\S\2 AI P1/2t 584.1 msec LV V1 max PG 5.4 mmHg LV V1 mean PG 2.6 mmHg LV V1 max 116.0 cm/sec LV V1 mean 75.2 cm/sec LV V1 VTI 22.5 cm SV(Ao) 276.0 ml SI(Ao) 151.2 ml/m\S\2 SV(LVOT) 82.1 ml SI(LVOT) 45.0 ml/m\S\2 PA V2 max 77.6 cm/sec PA max PG 2.4 mmHg PA acc slope 443.1 cm/sec\S\2 PA acc time 0.13 sec PI max gerard 172.5 cm/sec PI max PG 11.9 mmHg PI dec slope 115.1 cm/sec\S\2 PI P1/2t 439.2 msec TR max gerard 217.2 cm/sec RVSP(TR) 33.9 mmHg RAP systole 15.0 mmHg PA pr(Accel) 20.4 mmHg Created: Initialized: 03/04/17; 1900 <Electronically signed by Kirt Shore M.D.> Signed: 03/07/17 1305 Kirt Shore M.D. The status of this report is Signed. Draft = Not yet reviewed or approved by Project Manager Senior. Signed = Reviewed and approved by Project Manager Senior. Consultations: Neurology (Sabiha Wallace, PA-C) Medication Reconciliation New Medications: Atorvastatin (Atorvastatin Calcium) 40 Mg Tab 40 MG PO QAM, #30 TAB Cephalexin Monohydrate (Cephalexin) 500 Mg Cap 500 MG PO BID, #3 CAP Clopidogrel Bisulfate (Clopidogrel) 75 Mg Tab 75 MG PO QAM, #30 TAB Lisinopril (Zestril) 10 Mg Tab 10 MG PO QAM for 30 Days, TAB Continued Medications: Amlodipine (Norvasc) 10 Mg Tab 10 MG PO DAILY, 0 Refills Multivitamins/Minerals (Mvi With Minerals) Tab 1 TAB PO DAILY Discontinued Medications: Aspirin (Aspirin Ec) 81 Mg Tab 81 MG PO DAILY Discharge Exam Review of Systems: Constitutional: No chills, No fatigue, No fever, No sweats, No weakness Respiratory: No cough, No hemoptysis, No shortness of breath Cardiovascular: No chest pain, No edema, No palpitations Abdomen: No constipation, No diarrhea, No nausea, No pain, No vomiting Musculoskeletal: No calf pain, No joint pain, No muscle pain, No swelling Genitourinary - Female: No dysuria, No hematuria Neurologic: No numbness/tingling, No weakness Psychiatric: No anxiety, No depression symptoms Hematologic / Lymphatic: No abnormal bleeding/bruising Integumentary: No itch, No new/changing skin lesions, No rash Physical Exam: General Appearance: no apparent distress Eyes: PERRL, + pertinent finding (left hemianopsia ) ENT: hearing grossly normal Neck: supple Respiratory/Chest: no respiratory distress, no accessory muscle use, + rhonchi (diffuse) Cardiovascular: regular rate, rhythm Abdomen / GI: normal bowel sounds, non tender, soft Extremities: no calf tenderness, no pedal edema Neurologic/Psychiatric: alert, normal mood/affect, oriented x 3 Skin: normal color, warm/dry, no rash (Sabiha Wallace, PA-C) Hospital Course This is a 86 y/o female with PMHx of hyperlipidemia, hypertension, right breast mucinous adenocarcinoma s/p lumpectomy in 2011, hx R nephrectomy 2012, chronic tobacco abuse, who presents with new acute right CVA involving the right MCA. She experienced acute onset of weakness which began at approximately 9 AM on Right MCA CVA: - Admit to telemetry for cardiac monitoring -- Short run of SVT vs a.fib w/ aberrancy - suspicion is towards SVT- outpt holter/event monitoring -- Transferred to med/surg on 03/06 - Admitted w/ stroke protocol and neuro checks - Carotid duplex and echo w/o source for stroke - MRI brain confirmed MCA territory stroke - MRA brain with right MCA thrombus - Stroke protocols in place, patient is outside the TPA window - Speech therapy and PT/OT consulted- recommending rehab - Lipid panel reviewed, hemoglobin A1c 6.3% - B12 and folate checked - Atorvastatin 40 mg daily and Plavix 75 mg daily - Consult neurology- appreciate recommendations -- F/u w/ Dr. Bar in 2 weeks outpatient if desired E. 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 (Sabiha Wallace, PA-C) i personally examined pt and verified all baca points w T Rodrigo PAC ready for rehab, not happy about it but son wants her to go to rehab too ros otherwise negative except for as above vitals noted nad breathing unlabored no pallor or icterus stroke - for rehab today (Alonso Hylton, D.Nisa.) Discharge Instructions Please refer to the electronic Patient Visit Report (Discharge Instructions) for additional information. (Sabiha Wallace, PA-C) Follow-Up Please follow-up with [facility] Provider within 24-48 hours Please follow-up with your PCP within 5-7 days after discharge from [facility] Neurology suggest 2 week follow-up with Dr. Bar if desired by patient Please follow-up/keep all of your subspecialty appointments (Sabiha Wallace, PA-C) [facility]
[2017-03-09 11:39] VITALS: BP 126/72; PULSE 68
[2017-03-09 15:40] VITALS: BP 145/69; PULSE 66; TEMP 36.8; O2SAT 97
[2017-03-09] MEDS ORDERED: IV FLUIDS COMPLETED PRN (16:30)
[2017-03-09 16:43] VITALS: BP 145/69; PULSE 66; TEMP 36.8; O2SAT 97
[2017-06-22] MEDS ORDERED: XRL15 PO (14:18)
[2017-06-22] MEDS ORDERED: LPT20 PO (14:18)
[2017-06-22] MEDS ORDERED: IPRA1AER2 INH (14:18)
[2017-06-22] MEDS ORDERED: LPR25 PO (14:18)
[2017-07-24] MEDS ORDERED: DXY100 PO ×2 (07:01→07:12)
[2017-07-24] MEDS ORDERED: LSN25 PO (07:01)
[2017-07-24] MEDS ORDERED: LNX125 PO (07:01)
[2017-07-24] MEDS ORDERED: NICO21DI4 TD (07:01)
== END 2017-03-09 17:49 | DRG 65 ==
LOC: CANRESERV → ENRESERVDT → ENRESERVTM → C.EDB 17:02 → C.2E 18:36 → EDBEDREQ 18:45 → CANBEDREQ 03-05 16:48 → C.4E 03-06 10:39
PROVIDERS: ADMIT Family Medicine; ATTEND Family Medicine
DX: I63.9 Cerebral infarction, unspecified (principal); I69.352 Hemiplegia and hemiparesis following cerebral infarction affecting left dominant side; N17.9 Acute kidney failure, unspecified; N39.0 Urinary tract infection, site not specified; I47.1 Supraventricular tachycardia; E78.5 Hyperlipidemia, unspecified; I12.9 Hypertensive chronic kidney disease with stage 1 through stage 4 chronic kidney disease, or unspecified chronic kidney disease; N18.3 Chronic kidney disease, stage 3 (moderate); Z85.3 Personal history of malignant neoplasm of breast; F17.210 Nicotine dependence, cigarettes, uncomplicated; Z88.5 Allergy status to narcotic agent; Z79.82 Long term (current) use of aspirin; Z79.899 Other long term (current) drug therapy; R32 Unspecified urinary incontinence; B96.20 Unspecified Escherichia coli [E. coli] as the cause of diseases classified elsewhere; Z90.5 Acquired absence of kidney

== ENCOUNTER 2017-06-19 13:05 | Inpatient (IN) | payer OTHER ==
[~2017-06-19] VITALS: Ht 149.9 cm; Wt 44.3 kg
[~2017-06-19 13:05] MED LIST changes: -ASPI81TA28 PO; +KFL500 PO; +LPT40 PO; +LSN10 PO; -OMEG10007 PO; +PLV75 PO
[2017-06-19] MEDS ORDERED: SODIUM CHLORIDE 0.9% 250ML 250 ML IV STA (14:00)
[2017-06-19] MEDS ORDERED: SODIUM CHLORIDE 0.9% 1000ML 1,000 ML IV STA (14:00)
[2017-06-19] MEDS ORDERED: MULT-506 PO (14:06)
[2017-06-19] MEDS ORDERED: ASPI81TA28 PO (14:06)
--- NOTE | 2017-06-19 14:13 | EMERGENCY ROOM VISIT NOTE ---
History Report prepared by Kathy: Francheska Marroquin Under the Supervision of: Dr. Darlene Stover M.D. First contact with patient: 13:42 Chief Complaint: ILLNESS Stated Complaint: WEAKNESS History of Present Illness The patient is an 87 year old female who presents to the Emergency Room with complaints of persistent weakness starting 2 days ago. The patient presents to the ED by EMS. Today, she was found by her son crawling down the hallway because she could not get up. Two nights ago, she called her son because she had fallen out of bed and could not get back up. Yesterday, she took 1 hour to get out of the bathtub. She states that her legs have been weak and she is having difficulty using them. She also complained of back pain today which she attributed to being moved around by EMS. She denies any falls. She is not on oxygen at home. She is not on any blood thinners. She had a stroke 3 months ago. Source of History: patient, family Onset: 2 days ago Position: other (global) Quality: other (weakness) Timing: other (persistent) Associated Symptoms: + back pain Review of Systems See HPI for pertinent positives & negatives. A total of 10 systems reviewed and were otherwise negative. 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 Social History Smoking Status: Current Every Day Smoker Alcohol Use: none Drug Use: none Marital Status: Housing Status: lives alone Occupation Status: retired Current/Historical Medications Scheduled Aspirin (Aspirin Ec), 81 MG PO DAILY Multivitamin (Multivitamin), 1 TAB PO DAILY Allergies Coded Allergies: Morphine (Verified Allergy, Unknown, hallucinations, 06/19/17) Physical Exam Vital Signs Date Time Temp Pulse Resp B/P (MAP) Pulse Ox O2 Delivery O2 Flow Rate FiO2 06/19/17 17:12 58 18 149/79 97 Room Air 06/19/17 15:55 61 21 164/71 97 Room Air 06/19/17 14:57 63 06/19/17 14:42 57 16 155/107 96 Room Air 06/19/17 13:12 36.5 65 20 173/75 95 Room Air Physical Exam Vital signs reviewed. General: Elderly, chronically ill-appearing , in no significant distress. HEENT: No scleral icterus, PERRLA, neck supple. Atraumatic. Cardiovascular: Regular rate and rhythm, no extra sounds. Pulmonary: Clear to auscultation bilaterally, normal work of breathing. Abdomen: Soft, nontender, nondistended, positive bowel sounds. Musculoskeletal: Multiple ecchymosis to bilateral upper and lower extremities, no significant deformity. Cervical, thoracic and lumbar spine are palpated, nontender, no step-off or deformity appreciated. Neurologic: Patient awake alert and oriented x 3, full strength in all 4 extremities. Skin: Warm, dry, no rash. No significant abrasions/laceration. Medical Decision & Procedures ER Provider Diagnostic Interpretation: X-ray results as stated below per interpretation by me and the radiologist. Radiology results as stated below per my review and radiologist interpretation: CHEST ONE VIEW PORTABLE CLINICAL HISTORY: weakness dyspnea COMPARISON STUDY: 03/03/2017 FINDINGS: The bones soft tissues and hemidiaphragms are normal. The cardiomediastinal silhouette is normal. The lungs are clear. The pulmonary vasculature is normal. IMPRESSION: Negative chest. The above report was generated using voice recognition software. It may contain grammatical, syntax or spelling errors. Electronically signed by: Sudarshan Sun M.D. 06/19/2017 2:55 PM Dictated Date/Time: 06/19/2017 2:55 PM HEAD WITHOUT CONTRAST (CT) CT DOSE: 767.83 mGy.cm HISTORY: Mental status change weakness, falls TECHNIQUE: Multiaxial CT images of the head were performed without the use of intravenous contrast. A dose lowering technique was utilized adhering to the principles of ALARA. Comparison: 03/03/2017 Findings: The paranasal sinuses and mastoid air cells are clear. The calvarium and skull base are intact. The ventricles and sulci are within normal limits. There is no mass, hematoma, midline shift, or acute infarct. Large old right cerebral infarct present on the prior study. Moderate chronic small vessel change of periventricular deep white matter regions. No new or acute finding. No acute intracranial hemorrhage. Impression: Old right cerebral infarct. Age-related chronic small vessel change. No acute intracranial abnormality. The above report was generated using voice recognition software. It may contain grammatical, syntax or spelling errors. Electronically signed by: Sudarshan Sun M.D. 06/19/2017 2:23 PM Dictated Date/Time: 06/19/2017 2:21 PM Laboratory Results 06/19/17 14:40 Red Blood Count 4.35, Mean Corpuscular Volume 90.3, Mean Corpuscular Hemoglobin 30.6, Mean Corpuscular Hemoglobin Concent 33.8, Mean Platelet Volume 8.9, Neutrophils (%) (Auto) 77.0, Lymphocytes (%) (Auto) 11.7, Monocytes (%) (Auto) 10.1, Eosinophils (%) (Auto) 0.8, Basophils (%) (Auto) 0.3, Neutrophils # (Auto ) 5.59, Lymphocytes # (Auto) 0.85, Monocytes # (Auto) 0.73, Eosinophils # (Auto ) 0.06, Basophils # (Auto) 0.02 Test 06/19/17 14:40 06/19/17 15:08 White Blood Count 7.26 K/uL (4.8-10.8) Red Blood Count 4.35 M/uL (4.2-5.4) Hemoglobin 13.3 g/dL (12.0-16.0) Hematocrit 39.3 % (37-47) Mean Corpuscular Volume 90.3 fL (80-100) Mean Corpuscular Hemoglobin 30.6 pg (25-34) Mean Corpuscular Hemoglobin Concent 33.8 g/dl (32-36) Platelet Count 254 K/uL (130-400) Mean Platelet Volume 8.9 fL (7.4-10.4) Neutrophils (%) (Auto) 77.0 % Lymphocytes (%) (Auto) 11.7 % Monocytes (%) (Auto) 10.1 % Eosinophils (%) (Auto) 0.8 % Basophils (%) (Auto) 0.3 % Neutrophils # (Auto) 5.59 K/uL (1.4-6.5) Lymphocytes # (Auto) 0.85 K/uL (1.2-3.4) Monocytes # (Auto) 0.73 K/uL (0.11-0.59) Eosinophils # (Auto) 0.06 K/uL (0-0.5) Basophils # (Auto) 0.02 K/uL (0-0.2) RDW Standard Deviation 46.0 fL (36.4-46.3) RDW Coefficient of Variation 13.9 % (11.5-14.5) Immature Granulocyte % (Auto) 0.1 % Immature Granulocyte # (Auto) 0.01 K/uL (0.00-0.02) Total Bilirubin 0.4 mg/dl (0.2-1) Direct Bilirubin < 0.1 mg/dl (0-0.2) Aspartate Amino Transf (AST/SGOT) 27 U/L (15-37) Alanine Aminotransferase (ALT/SGPT) 23 U/L (12-78) Alkaline Phosphatase 93 U/L (45-117) Total Creatine Kinase 370 U/L (26-192) Creatine Kinase MB 6.6 ng/ml (0.5-3.6) Creatine Kinase MB Ratio 1.8 (0-3.0) Troponin I 0.029 ng/ml (0-0.045) Total Protein 6.6 gm/dl (6.4-8.2) Albumin 3.1 gm/dl (3.4-5.0) Thyroid Stimulating Hormone (TSH) 0.765 uIu/ml (0.300-4.500) Urine Color YELLOW Urine Appearance CLEAR (CLEAR) Urine pH 6.0 (4.5-7.5) Urine Specific Curtis 1.016 (1.000-1.030) Urine Protein 2+ (NEG) Urine Glucose (UA) NEG (NEG) Urine Ketones TRACE (NEG) Urine Occult Blood NEG (NEG) Urine Nitrite NEG (NEG) Urine Bilirubin NEG (NEG) Urine Urobilinogen NEG (NEG) Urine Leukocyte Esterase NEG (NEG) Urine WBC (Auto) 1-5 /hpf (0-5) Urine RBC (Auto) 0-4 /hpf (0-4) Urine Hyaline Casts (Auto) 1-5 /lpf (0-5) Urine Epithelial Cells (Auto) 10-20 /lpf (0-5) Urine Bacteria (Auto) NEG (NEG) Laboratory results per my review. Medications Administered Medications (Trade) Dose Ordered Sig/Paco Route Start Time Stop Time Status Last Admin Dose Admin Sodium Chloride 250 ml @ 999 mls/hr Q16M STAT IV 06/19/17 14:00 06/19/17 14:15 DC 06/19/17 15:20 999 MLS/HR Sodium Chloride 1,000 ml @ 125 mls/hr Q8H STAT IV 06/19/17 14:00 06/19/17 19:02 DC 06/19/17 15:20 125 MLS/HR Potassium Chloride (Klor-Con M10) 40 meq NOW STAT PO 06/19/17 15:47 06/19/17 15:49 DC 06/19/17 17:13 40 MEQ ECG Indication: weakness Rate (beats per minute): 57 Rhythm: sinus bradycardia Findings: T-wave inversion (Anterior, Lateral), no acute ischemic change, no ectopy Comparison ECG Date: 03-Mar-2017 Change: no significant change ED Course 1350: Past medical records reviewed. The patient was evaluated in room A3. A complete history and physical examination was performed. 1400: NSS 1000 ml @ 125 mls/hr IV, NSS 250 ml @ 999 mls/hr IV. 1547: Potassium Chloride 40 meq PO. 1604: I reviewed the patient's case with Dr. Ridley, [facility] hospitalist service. He will evaluate the patient for further management. 1623: Upon reevaluation, the patient is resting comfortably. I discussed laboratory and radiographic results with her. She verbalized agreement of the treatment plan. The patient will be evaluated for further management and care. Medical Decision Differential diagnosis: Etiologies such as metabolic, infection, hypo/hyperglycemia, electrolyte abnormalities, cardiac sources, intracerebral event, toxicologic, neurologic, as well as others were entertained. This patient was evaluated and appeared to be in no significant distress. Physical examination reveals an elderly female who is frail. She has multiple ecchymotic areas in various stages of healing to the upper and lower extremities. She states she has been crawling on her hands and knees recently because her "legs don't work." The patient was hydrated with normal saline solution. Laboratory work including urinalysis is fairly unrevealing. She does have a mild hypokalemia and was ordered 40 mEq of oral potassium. I suspect the patient will require a rehabilitation stay and case management for in home services if discharge plans are made. At this time the hospitalist was consulted for further management, PT OT evaluation case management involvement and patient safety. Patient and family are aware of the plan and agree. Medication Reconcilliation Current Medication List: was personally reviewed by me Blood Pressure Screening Patient's blood pressure: Elevated blood pressure Referred to hospitalist. Consults Time Called: [phone] Consulting Physician: Dr. Ridley [facility] hospitalist service Returned Call: [phone] I reviewed the patient's case with him. He will evaluate the patient for further management. Impression Primary Impression: Frequent falls Additional Impressions: Generalized weakness Hypokalemia Ambulatory dysfunction Scribe Attestation The scribe's documentation has been prepared under my direction and personally reviewed by me in its entirety. I confirm that the note above accurately reflects all work, treatment, procedures, and medical decision making performed by me. Departure Information Dispostion Being Evaluated By Hospitalist Referrals No Doctor, Assigned (PCP) Patient Instructions [facility] Problem Qualifiers
--- NOTE | 2017-06-19 14:25 | DIAGNOSTIC IMAGING REPORT ---
HEAD WITHOUT CONTRAST (CT) CT DOSE: 767.83 mGy.cm HISTORY: Mental status change weakness, falls TECHNIQUE: Multiaxial CT images of the head were performed without the use of intravenous contrast. A dose lowering technique was utilized adhering to the principles of ALARA. Comparison: 03/03/2017 Findings: The paranasal sinuses and mastoid air cells are clear. The calvarium and skull base are intact. The ventricles and sulci are within normal limits. There is no mass, hematoma, midline shift, or acute infarct. Large old right cerebral infarct present on the prior study. Moderate chronic small vessel change of periventricular deep white matter regions. No new or acute finding. No acute intracranial hemorrhage. Impression: Old right cerebral infarct. Age-related chronic small vessel change. No acute intracranial abnormality. The above report was generated using voice recognition software. It may contain grammatical, syntax or spelling errors. Electronically signed by: Sudarshan Sun M.D. 06/19/2017 2:23 PM Dictated Date/Time: 06/19/2017 2:21 PM
[2017-06-19 14:56] LABS: BASO % 0.3 %; BASO ABS # 0.02 K/uL (0-0.2); COMPLETE YES; EOS % 0.8 %; HEMATOCRIT 39.3 % (37-47); IG% 0.1 %; LYMPH % 11.7 %; LYMPH ABS # 0.85 K/uL (1.2-3.4); MEAN CELL VOLUME 90.3 fL (80-100); MEAN CORPUSCULAR HEMOGLOBIN 30.6 pg (25-34); MEAN CORPUSCULAR HGB CONC 33.8 g/dl (32-36); MEAN PLATELET VOLUME 8.9 fL (7.4-10.4); MONO % 10.1 %; PLATELET COUNT 254 K/uL (130-400); RED BLOOD COUNT 4.35 M/uL (4.2-5.4); WHITE BLOOD COUNT 7.26 K/uL (4.8-10.8)
--- NOTE | 2017-06-19 14:57 | DIAGNOSTIC IMAGING REPORT ---
CHEST ONE VIEW PORTABLE CLINICAL HISTORY: weakness dyspnea COMPARISON STUDY: 03/03/2017 FINDINGS: The bones soft tissues and hemidiaphragms are normal. The cardiomediastinal silhouette is normal. The lungs are clear. The pulmonary vasculature is normal. IMPRESSION: Negative chest. The above report was generated using voice recognition software. It may contain grammatical, syntax or spelling errors. Electronically signed by: Sudarshan Sun M.D. 06/19/2017 2:55 PM Dictated Date/Time: 06/19/2017 2:55 PM
[2017-06-19 15:22] LABS: ALT/SGPT 23 U/L (12-78); BLOOD UREA NITROGEN 18 mg/dl (7-18); BUN/CREATININE RATIO 18.5 (10-20); CARBON DIOXIDE 27 mmol/L (21-32); CHLORIDE 104 mmol/L (98-107); CREATININE 0.98 mg/dl (0.60-1.20); GLUCOSE 66 mg/dl (70-99); MAGNESIUM 1.8 mg/dl (1.8-2.4); POTASSIUM 3.2 mmol/L (3.5-5.1); SODIUM 138 mmol/L (136-145)
[2017-06-19 15:33] LABS: ALKALINE PHOSPHATASE 93 U/L (45-117); AST/SGOT 27 U/L (15-37); CKMB/CK RATIO 1.8 (0-3.0); THYROID STIMULATING HORMONE 0.765 uIu/ml (0.300-4.500)
[2017-06-19 15:39] LABS: URINE APPEARANCE CLEAR (CLEAR); URINE BILIRUBIN NEG (NEG); URINE COLOR YELLOW; URINE NITRITE NEG (NEG); URINE SPECIFIC GRAVITY 1.016 (1.000-1.030); UROBILINOGEN NEG (NEG); ZZURINE CULT IF INDIC CATH NO
[2017-06-19 15:41] LABS: MANUAL MICROSCOPIC REQUIRED? NO; REVIEW REQ? NO
[2017-06-19] MEDS ORDERED: POTASSIUM CHLORIDE 10 MEQ TABCR PO STA (15:47)
[2017-06-19] MEDS ORDERED: ONDANSETRON INJ 2 MG/ML 2 ML VIAL IV PRN (17:15)
[2017-06-19] MEDS ORDERED: MAGNESIUM HYDROXIDE SUSP 30 ML UDC PO PRN (17:15)
[2017-06-19] MEDS ORDERED: POLYETHYLENE (MIRALAX) 17 GM PACK PO PRN (17:15)
[2017-06-19] MEDS ORDERED: ACETAMINOPHEN 325 MG TAB PO PRN (17:15)
[2017-06-19] MEDS ORDERED: ALUMINUM/MAGNESIUM/SIMETH (MAALOX MAX) 30 ML UDC PO PRN (17:15)
[2017-06-19 17:50] VITALS: O2SAT 97; Ht 149.9 cm; Wt 44.3 kg
--- NOTE | 2017-06-19 17:52 | History and Physical ---
History & Physical Date & Time of Service: Jun 19, 2017 at 17:06 Chief Complaint: Weakness Primary Care Physician: Hannah Quintana C.R.N.P History of Present Illness Source: patient 87 y/o F Hx HTN, HPL, COPD, avid smoker, medical noncompliance. Pt had a R MCA CVA 02/23 and has some residual LUE weakness. For the past 3 days she describes being too weak to ambulate. She was found crawling around her trailer one day prior, by her son, who helped her up but did not bring her into the hospital at the time. She was again found crawling around her trailer by her daughter today and was finally transported to the hospital. She denies any symptoms aside from weakness. Her daughter states that she may be coughing more than usual. Initial exam reveals L upper extrem weakness which is expected based on her previous CVA and similar to her exam at that time. She also displays L lower extrem weakness and ataxia which may be new. She states that she was provided with 2 prescriptions upon discharge in February. These per our records included Norvasc and a Statin. When she ran out of the initial Rx she did not refill them and has taken only 81mg ASA since. A CT brain does not reveal an acute CVA. Initial labs are consistent with dehydration and mild rhabdomyolysis. Past Medical/Surgical History Medical Problems: (1) HPL Status: Chronic (2) Hypertension Status: Chronic 3) R MCA CVA 02/23 - residual L weakness and mild ataxia 4) COPD 5) Smoker Family History Noncontributory due to pt's age Social History Smokes one pack daily - lives alone in a trailer with her pet cat Smoking Status: Current Every Day Smoker Drug Use: none Marital Status: Housing status: lives with family Occupational Status: retired Immunizations History of Influenza Vaccine: Yes Influenza Vaccine Date: Aug 02, 2008 History of Tetanus Vaccine?: Unknown History of Pneumococcal: No History of Hepatitis B Vaccine: No Multi-Drug Resistant Organisms History of MDRO: No Allergies Coded Allergies: Morphine (Verified Allergy, Unknown, hallucinations, 06/19/17) Home Medications Scheduled Aspirin (Aspirin Ec), 81 MG PO DAILY Multivitamin (Multivitamin), 1 TAB PO DAILY Review of Systems Constitutional: + weakness, + fatigue, No fever, No chills, No sweats Eyes: No worsening of vision, No eye pain ENT: No hearing loss, No unusual epistaxis, No nasal symptoms Respiratory: + cough (chronic) Cardiovascular: No chest pain, No orthopnea, No PND Abdomen: No pain, No nausea, No vomiting Musculoskeletal: No joint pain, No muscle pain Genitourinary - Female: No dysuria, No urinary frequency, No urinary urgency Neurologic: + weakness, + balance problems, No memory loss, No paralysis Psychiatric: No depression symptoms Endocrine: No fatigue Hematologic / Lymphatic: No abnormal bleeding/bruising Integumentary: No rash Physical Exam Vital Signs Date Time Temp Pulse Resp B/P (MAP) Pulse Ox O2 Delivery O2 Flow Rate FiO2 06/19/17 15:55 61 21 164/71 97 Room Air 06/19/17 14:57 63 06/19/17 14:42 57 16 155/107 96 Room Air 06/19/17 13:12 36.5 65 20 173/75 95 Room Air General Appearance: + thin, + pertinent finding (LSightly irritable, elderly female - awake and alert - no distress) Head: normocephalic, atraumatic Eyes: normal inspection ENT: normal ENT inspection, pharynx normal Neck: supple, no JVD Respiratory/Chest: chest non-tender, + pertinent finding (Very poor b/l air entry - kyphosis present ) Cardiovascular: regular rate, rhythm, no edema, no gallop, no JVD Abdomen/GI: normal bowel sounds, non tender, soft Back: + pertinent finding (Kyphosis) Extremities/Musculoskelatal: normal inspection, no calf tenderness, normal capillary refill, no pedal edema, normal range of motion Neurologic/Psych: 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, oriented x 3, + pertinent finding ( Pronator drift and mild ataxia of LUE - strength is only slighly diminished - imapired heal/slater LLE, mild drift - dorsiflexion is mildly weak on L ) Diagnostics Laboratory Results Results Past 24 Hours Test 06/19/17 14:40 06/19/17 15:08 Range/Units White Blood Count 7.26 4.8-10.8 K/uL Red Blood Count 4.35 4.2-5.4 M/uL Hemoglobin 13.3 12.0-16.0 g/dL Hematocrit 39.3 37-47 % Mean Corpuscular Volume 90.3 80-100 fL Mean Corpuscular Hemoglobin 30.6 25-34 pg Mean Corpuscular Hemoglobin Concent 33.8 32-36 g/dl Platelet Count 254 130-400 K/uL Mean Platelet Volume 8.9 7.4-10.4 fL Neutrophils (%) (Auto) 77.0 % Lymphocytes (%) (Auto) 11.7 % Monocytes (%) (Auto) 10.1 % Eosinophils (%) (Auto) 0.8 % Basophils (%) (Auto) 0.3 % Neutrophils # (Auto) 5.59 1.4-6.5 K/uL Lymphocytes # (Auto) 0.85 1.2-3.4 K/uL Monocytes # (Auto) 0.73 0.11-0.59 K/uL Eosinophils # (Auto) 0.06 0-0.5 K/uL Basophils # (Auto) 0.02 0-0.2 K/uL RDW Standard Deviation 46.0 36.4-46.3 fL RDW Coefficient of Variation 13.9 11.5-14.5 % Immature Granulocyte % (Auto) 0.1 % Immature Granulocyte # (Auto) 0.01 0.00-0.02 K/uL Sodium Level 138 136-145 mmol/L Potassium Level 3.2 3.5-5.1 mmol/L Chloride Level 104 98-107 mmol/L Carbon Dioxide Level 27 21-32 mmol/L Anion Gap 7.0 3-11 mmol/L Blood Urea Nitrogen 18 7-18 mg/dl Creatinine 0.98 0.60-1.20 mg/dl Est Creatinine Clear Calc Drug Dose 27.6 ml/min Estimated GFR () 60.1 Estimated GFR (Non- 51.9 BUN/Creatinine Ratio 18.5 10-20 Random Glucose 66 70-99 mg/dl Calcium Level 9.0 8.5-10.1 mg/dl Magnesium Level 1.8 1.8-2.4 mg/dl Total Bilirubin 0.4 0.2-1 mg/dl Direct Bilirubin < 0.1 0-0.2 mg/dl Aspartate Amino Transf (AST/SGOT) 27 15-37 U/L Alanine Aminotransferase (ALT/SGPT) 23 12-78 U/L Alkaline Phosphatase 93 45-117 U/L Total Creatine Kinase 370 26-192 U/L Creatine Kinase MB 6.6 0.5-3.6 ng/ml Creatine Kinase MB Ratio 1.8 0-3.0 Troponin I 0.029 0-0.045 ng/ml Total Protein 6.6 6.4-8.2 gm/dl Albumin 3.1 3.4-5.0 gm/dl Thyroid Stimulating Hormone (TSH) 0.765 0.300-4.500 uIu/ml Urine Color YELLOW Urine Appearance CLEAR CLEAR Urine pH 6.0 4.5-7.5 Urine Specific [place] 1.016 1.000-1.030 Urine Protein 2+ NEG Urine Glucose (UA) NEG NEG Urine Ketones TRACE NEG Urine Occult Blood NEG NEG Urine Nitrite NEG NEG Urine Bilirubin NEG NEG Urine Urobilinogen NEG NEG Urine Leukocyte Esterase NEG NEG Urine WBC (Auto) 1-5 0-5 /hpf Urine RBC (Auto) 0-4 0-4 /hpf Urine Hyaline Casts (Auto) 1-5 0-5 /lpf Urine Epithelial Cells (Auto) 10-20 0-5 /lpf Urine Bacteria (Auto) NEG NEG Diagnostic Radiology CT head: Old right cerebral infarct. Age-related chronic small vessel change. No acute intracranial abnormality EKG EKG is unchanged - sinus - may represent a strain pattern Impression Assessment and Plan 87 y/o F Hx HTN, HPL, COPD, avid smoker, medical noncompliance. Pt had a R MCA CVA 02/23 and has some residual LUE weakness. For the past 3 days she describes being too weak to ambulate. She was found crawling around her trailer one day prior, by her son, who helped her up but did not bring her into the hospital at the time. She was again found crawling around her trailer by her daughter today and was finally transported to the hospital. Initial exam reveals L upper extrem weakness which is expected based on her previous CVA. She also displays L lower extrem weakness and ataxia which may be new. She states that she was provided with 2 prescriptions upon discharge in February. These per our records included Norvasc and a Statin. When she ran out of the initial Rx she did not refill them and has taken only 81mg ASA since. A CT brain does not reveal an acute CVA. Initial labs are consistent with dehydration and mild rhabdomyolysis. 1) Weakness - unclear if neuro exam has changed - the pt has poor PO intake per daughter and may be exhibiting general functional decline. We will obtain an MRI to r/o an additional CVA although this would likely have occurred 3 days prior. She will be placed on a Statin and ASA at a higher dose. She should likely resume Norvasc AM. We have consulted PT/OT - she is amenable to placement in rehab. Neuro should be consulted if there are new abnormalities found on CT. 2) HTN - resume Norvasc AM 3) HPL - LDL 108 in February - resume statin therapy 4) COPD - continued smoking - no evidence of acute exacerbation - does not appear interested in cessation - nicotine patch provided. 5) Mild rhabdo - dehydration - IVF - recheck BMP AM Full code - Heparin prophylaxis - total time for this admit including review of labs, meds, imaging, records - discussion with pt and ER attending - 38 min Level of Care Telemetry Resuscitation Status FULL RESUSCITATION VTE Prophylaxis Given or contraindicated: Unfractionated heparin SQ
[2017-06-19] MEDS ORDERED: IV FLUIDS COMPLETED PRN (18:00)
[2017-06-19 19:10] VITALS: BP 154/73; PULSE 63; TEMP 37.1; O2SAT 93
[2017-06-19] MEDS: D5NSS + 20MEQ KCL 1,000 ML IV SCH (19:29)
[2017-06-19] MEDS ORDERED: ASPIRIN 81 MG CHEW PO ONE (19:30)
[2017-06-19] MEDS: ATORVASTATIN 20 MG TAB PO SCH (19:31)
[2017-06-19 20:00] VITALS: O2SAT 93
[2017-06-19 22:42] VITALS: BP 161/62; PULSE 60; TEMP 37.2; O2SAT 94
[2017-06-20] VITALS (12 sets, daily range): BP systolic 105–188; BP diastolic 56–83; PULSE 51–70; TEMP 36.4–37.5; O2SAT 93–98
[2017-06-20] MEDS: D5NSS + 20MEQ KCL 1,000 ML IV SCH (05:36)
--- NOTE | 2017-06-20 06:53 | DIAGNOSTIC IMAGING REPORT ---
MRI OF THE BRAIN WITHOUT CONTRAST CLINICAL HISTORY: Cerebrovascular accident. Weakness. COMPARISON STUDY: MRI the brain March 04, [address] June 19, 2017. TECHNIQUE: Utilizing a 1.5 Jyoti magnet and dedicated coil, multiplanar, multiecho imaging of the brain was performed without IV contrast. FINDINGS: Signal abnormality on the diffusion-weighted sequence within the right temporal and parietal lobes represent an old infarct with T2 shine through. This infarct was shown on MRI of March 04, 2017. No acute infarct is evident. Ventricular system is stable. Basilar cisterns are patent. No extra-axial collections are present. Flow-voids for the major intracranial vessels are present. There is no intracranial mass on this unenhanced examination. White matter T2 hyperintense foci suggest small vessel disease. Calvarial signal is maintained. Study is mildly compromised by motion artifact. IMPRESSION: 1. No acute intracranial findings. 2. Old right MCA infarct. 3. Moderate atrophy and small vessel disease. Electronically signed by: Mahin Moralez M.D. 06/20/2017 6:51 AM Dictated Date/Time: 06/20/2017 6:45 AM
[2017-06-20] MEDS: ASPIRIN 81 MG ECTAB PO SCH (08:15)
[2017-06-20] MEDS: ENOXAPARIN 30 MG/0.3 ML SYR SC SCH (08:16)
[2017-06-20 11:51] LABS: BUN/CREATININE RATIO 19.2 (10-20); CALCIUM 8.7 mg/dl (8.5-10.1); CREATININE 1.3 mg/dl (0.60-1.20); MAGNESIUM 1.9 mg/dl (1.8-2.4); POTASSIUM 4.2 mmol/L (3.5-5.1)
[2017-06-20] MEDS ORDERED: NIFEdipine 30 MG CR TAB PO STA (12:45)
[2017-06-20] MEDS: D5W AND NSS 1,000 ML IV SCH (14:00)
--- NOTE | 2017-06-20 15:56 | DIAGNOSTIC IMAGING REPORT ---
L-SPINE MIN 4 VIEWS ROUTINE CLINICAL HISTORY: Low back pain COMPARISON STUDY: No previous studies for comparison. FINDINGS: The bones are osteopenic. There is a grade 2/4 spondylolisthesis of L5 on S1. There is a moderate T12 compression fracture of indeterminate age. There is a mild superior endplate L1 compression deformity of indeterminate age. There is a mild T11 compression deformity of indeterminate age. IMPRESSION: 1. T11, T12, and L1 endplate compression fractures of indeterminate age 22. Grade 2/4 spondylolisthesis of L5 on S1. 3. Osteopenia Electronically signed by: Samm Herrera M.D. 06/20/2017 3:54 PM Dictated Date/Time: 06/20/2017 3:53 PM
[2017-06-20] MEDS: ATORVASTATIN 20 MG TAB PO SCH (20:49)
--- NOTE | 2017-06-20 20:54 | Progress Note ---
Subjective Date of Service: Jun 20, 2017. Subjective Pt evaluation today including: conversation w/ patient, physical exam, chart review, lab review, review of studies (MRI brain, l-spine x-rays), review of inpatient medication list Pain: low back - started in the last few days PO Intake: fair tele stable since admission denies pelvic or hip pain just complains of low back pain when asked why she was crawling on the floor at home she reports it was "my back " Problem List Medical Problems: (1) Acute CVA (cerebrovascular accident) Status: Acute (2) Ambulatory dysfunction Status: Acute (3) Frequent falls Status: Acute (4) Generalized weakness Status: Acute (5) Head injury Status: Acute (6) Hypokalemia Status: Acute (7) Scalp laceration Status: Acute Review of Systems Constitutional: No fever Respiratory: No shortness of breath Cardiac: No chest pain Abdomen: No pain Objective Vital Signs Date Time Temp Pulse Resp B/P (MAP) Pulse Ox O2 Delivery O2 Flow Rate FiO2 06/20/17 19:21 36.8 69 18 165/83 (110) 96 06/20/17 17:26 69 165/56 (92) 06/20/17 16:13 37.5 68 18 171/79 (109) 96 Room Air 06/20/17 16:01 96 Room Air 06/20/17 13:29 66 157/62 (93) 06/20/17 12:40 70 166/71 (102) 06/20/17 12:00 Room Air 06/20/17 11:32 37.1 65 16 180/78 (112) 93 Room Air 06/20/17 08:29 70 162/65 (97) 69 172/62 (98) 06/20/17 08:00 Room Air 06/20/17 07:02 36.8 55 17 188/81 (116) 98 Room Air 06/20/17 04:19 36.4 51 16 149/76 (100) 96 Room Air 06/20/17 04:00 Room Air 06/20/17 00:00 Room Air 06/19/17 22:42 37.2 60 20 161/62 (95) 94 Room Air Physical Exam General Appearance: no apparent distress, + thin ENT: pharynx normal Neck: no JVD Respiratory/Chest: lungs clear, no respiratory distress, no accessory muscle use Cardiovascular: regular rate, rhythm, no gallop, no murmur Abdomen: normal bowel sounds, non tender, soft, no organomegaly Extremities: no pedal edema Neurologic/Psychiatric: no motor/sensory deficits (left arm weakness, about 4-5 /5, left leg weakness minimal ), alert, oriented x 3 Comments: back - kyphotic; tender to palpation over lower lumbar segments Laboratory Results Last 24 Hours Test 06/20/17 10:32 Sodium Level 140 mmol/L Potassium Level 4.2 mmol/L Chloride Level 107 mmol/L Carbon Dioxide Level 26 mmol/L Anion Gap 7.0 mmol/L Blood Urea Nitrogen 25 mg/dl Creatinine 1.30 mg/dl Est Creatinine Clear Calc Drug Dose 20.8 ml/min Estimated GFR () 42.7 Estimated GFR (Non- 36.9 BUN/Creatinine Ratio 19.2 Random Glucose 78 mg/dl Calcium Level 8.7 mg/dl Magnesium Level 1.9 mg/dl Assessment and Plan 87yo female - 1. acute kidney injury - 2nd to rhabdomyolysis? hydrate, repeat BMP and CPK in am. 2. rhabdomyolysis - hydrate, repeat CPK in am. 3. lumbar back pain - x-rays obtained showing multiple lower thoracic compression fx's. treat the pain. no signs of neurological compromise on exam today. 4. HTN - uncontrolled - add nifedipine 30mg daily. 5. ?stroke leading to weakness in legs - MRI brain negative for acute stroke. left-sided symptoms are due to prior stroke. cont asa for secondary stroke prevention. 6. COPD - no symptoms at this time. 7. DVT proph - lovenox 30mg daily. 8. hypoglycemia - blood glucose on BMP at time of ER presentation yesterday was 66. Blood glucose today - in the 70s. Reasonable to check random cortisol in am to exclude adrenal insuff. PT, OT olena In my clinical judgment this beneficiary meets acute admission criteria based upon development of acute kidney injury, established by CMS, that includes being hospitalized through two midnights. Continued [facility] stay due to: multiple IV medications needed Discharge planning: uncertain
[2017-06-21] VITALS (7 sets, daily range): BP systolic 132–176; BP diastolic 57–84; PULSE 58–92; TEMP 36.4–37.3; O2SAT 92–96
[2017-06-21] MEDS: D5W AND NSS 1,000 ML IV SCH (05:21)
[2017-06-21] MEDS: ENOXAPARIN 30 MG/0.3 ML SYR SC SCH (07:45)
[2017-06-21] MEDS: ASPIRIN 81 MG ECTAB PO SCH (07:45)
[2017-06-21 08:20] LABS: BUN/CREATININE RATIO 19.9 (10-20); CALCIUM 8.6 mg/dl (8.5-10.1); CREATININE 1.2 mg/dl (0.60-1.20); POTASSIUM 3.7 mmol/L (3.5-5.1)
[2017-06-21] MEDS ORDERED: NIFEdipine 30 MG CR TAB PO SCH (09:00)
--- NOTE | 2017-06-21 10:56 | Clinical Documentation Query ---
CLINICAL DOCUMENTATION QUERY 87 year old female who presents to the Emergency Room with complaints of persistent weakness In your clinical opinion is this patient being managed for: ( ) Increased weakness as sequela of previous CVA of February of 2017 ( ) Not Agree ( ) Other explanation of clinical findings (Please Explain) ( ) Unable to determine (Please Define) ( ) Need to Discuss The medical record reflects the following clinical findings, treatment, and risk factors. Clinical Indicators: weakness to legs. New MRI was negative for new stroke. H&P states, weakness - unclear if neuro exam has changed - the pt has poor PO intake per daughter and may be exhibiting general functional decline. Treatment: IVF's, Head CT, MRI, PT consult, Risk Factors: Age, CVA in last 6 months, Please clarify and document your clinical opinion in the progress notes and discharge summary. Terms such as "probable", "suspected", "likely", "questionable", "possible", or "still to be ruled out" are acceptable. IF IN AGREEMENT, YOU MUST DOCUMENT ABOVE DIAGNOSTIC STATEMENT IN DAILY PROGRESS NOTES AND DISCHARGE SUMMARY. This document is not part of the patient's record. Thank You, Calvin Orr, RN [phone]
[2017-06-21] MEDS: ATORVASTATIN 20 MG TAB PO SCH (19:28)
--- NOTE | 2017-06-21 21:17 | Progress Note ---
Subjective Date of Service: Jun 21, 2017. Subjective Pt evaluation today including: conversation w/ patient, physical exam, chart review, lab review, review of inpatient medication list Pain: denies back, abd, chest or limb pain PO Intake: normal tele with brief run, <15 beats, of PAT vs a. juan carlos had a second run this afternoon both at rest and not symptomatic during the visit patient expressed she was anxious to leave and "go home" denied ANY complaints no issues per staff legs feel 'better' today and stronger Problem List Medical Problems: (1) Acute CVA (cerebrovascular accident) Status: Acute (2) Ambulatory dysfunction Status: Acute (3) Frequent falls Status: Acute (4) Generalized weakness Status: Acute (5) Head injury Status: Acute (6) Hypokalemia Status: Acute (7) Scalp laceration Status: Acute Review of Systems Constitutional: No fever Respiratory: No cough, No shortness of breath Cardiac: No chest pain Abdomen: No pain Objective Vital Signs Date Time Temp Pulse Resp B/P (MAP) Pulse Ox O2 Delivery O2 Flow Rate FiO2 06/21/17 20:00 Room Air 06/21/17 19:12 37.3 72 18 145/75 (98) 92 Room Air 06/21/17 16:00 Room Air 06/21/17 15:16 36.9 74 20 132/65 (87) 92 Room Air 06/21/17 12:00 Room Air 06/21/17 10:58 37.0 66 20 144/70 (94) 94 06/21/17 08:50 58 151/57 (88) 78 149/77 (101) 92 156/76 (102) 06/21/17 08:00 Room Air 06/21/17 07:22 36.4 60 18 176/76 (109) 96 06/21/17 04:16 36.9 60 18 165/78 (107) 95 06/21/17 04:00 Room Air 06/21/17 00:00 Room Air 06/20/17 23:50 36.8 66 16 105/66 (79) 98 Room Air Physical Exam General Appearance: no apparent distress, + thin ENT: pharynx normal Neck: no JVD Respiratory/Chest: lungs clear, no respiratory distress, no accessory muscle use Cardiovascular: regular rate, rhythm, no gallop, no murmur Abdomen: normal bowel sounds, non tender, soft, no organomegaly Extremities: no pedal edema Neurologic/Psychiatric: alert, oriented x 3 Laboratory Results Last 24 Hours Test 06/21/17 07:25 Sodium Level 139 mmol/L Potassium Level 3.7 mmol/L Chloride Level 108 mmol/L Carbon Dioxide Level 24 mmol/L Anion Gap 7.0 mmol/L Blood Urea Nitrogen 24 mg/dl Creatinine 1.20 mg/dl Est Creatinine Clear Calc Drug Dose 22.5 ml/min Estimated GFR () 47.1 Estimated GFR (Non- 40.6 BUN/Creatinine Ratio 19.9 Random Glucose 89 mg/dl Calcium Level 8.6 mg/dl Total Creatine Kinase 193 U/L Cortisol AM Sample 14.91 mcg/dl Assessment and Plan 87yo female - 1. acute kidney injury - 2nd to rhabdomyolysis? resolving BMP improved today; repeat BMP in am CPK also improved today and scantly elevated 2. rhabdomyolysis - essentially resolved; can d/c fluids 3. lumbar back pain - x-rays obtained showing multiple lower thoracic compression fx's. patient largely denies pain today no signs of neurological compromise on exam once again 4. HTN - improved with nifedipine. In light of runs of PAT (vs a. fib) will change CCB to metoprolol 25mg BID in the AM 5. ?stroke leading to weakness in legs - MRI brain negative for acute stroke. left-sided symptoms are due to prior stroke. cont asa for secondary stroke prevention. 6. COPD - no symptoms at this time. 7. DVT proph - lovenox 30mg daily. 8. hypoglycemia - blood glucose on BMP at time of ER presentation was 66. glucoses since have been normal cortisol normal satisfactory suspect this was due to poor oral intake 9. PAT vs a. fib - echo 02/2017 with preserved EF. Valves normal as well. Unclear what type of atrial dysrhythmia it is. Would not anticoagulate just yet without clearer documentation this is truly a. fib. Change nifedipine to metoprolol. Keep on tele. PT, OT evals appreciated; may need rehab vs home w/ HH re-eval tomorrow Discharge planning: uncertain
[2017-06-22 04:06] VITALS: BP 168/75; PULSE 65; TEMP 36.8; O2SAT 94
[2017-06-22 07:08] LABS: BUN/CREATININE RATIO 19.5 (10-20); CALCIUM 9.1 mg/dl (8.5-10.1); CREATININE 1.1 mg/dl (0.60-1.20); POTASSIUM 3.8 mmol/L (3.5-5.1)
[2017-06-22 07:34] VITALS: BP 162/79; PULSE 62; TEMP 36.9; O2SAT 94
[2017-06-22] MEDS: ASPIRIN 81 MG ECTAB PO SCH (08:00)
[2017-06-22] MEDS: ENOXAPARIN 30 MG/0.3 ML SYR SC SCH (08:01)
[2017-06-22] MEDS ORDERED: METOPROLOL TARTRATE 25 MG TAB PO SCH (09:00)
[2017-06-22 11:31] VITALS: BP 152/80; PULSE 70; TEMP 37; O2SAT 93
[2017-06-22 13:50] VITALS: BP 152/80; PULSE 70; TEMP 37; O2SAT 93
[2017-06-22] MEDS ORDERED: LPT20 PO (14:18)
[2017-06-22] MEDS ORDERED: XRL15 PO (14:18)
[2017-06-22] MEDS ORDERED: LPR25 PO (14:18)
[2017-06-22] MEDS ORDERED: IPRA1AER2 INH (14:18)
--- NOTE | 2017-06-22 14:22 | Discharge Instructions ---
Discharge Instructions Date of Service Jun 22, 2017. Admission Reason for Admission: Generalized Weakness Discharge Discharge Diagnosis / Problem: generalized weakness, possibly due to dehydration Discharge Goals Goal(s): Learn about illness, Diagnostic testing, Therapeutic intervention Activity Recommendations Activity Level: Assistance Required Therapies: Physical Therapy, Occupational Therapy . Additional Information Patient informed of condition: Yes Advance Directives: Yes DNR: No Level of Care: Acute Rehab Communicable Disease: No Prognosis: Stable Oxygen at (LPM): none Iniguez Catheter: No Instructions / Follow-Up Instructions / Follow-Up Please see PCP within 1 week of discharge from [facility]. Consider outpatient 30-day event monitor to assess for a. fib burden; this can be arranged through [facility]. Consider referral to neuropsychiatry for testing to exclude developing mild cognitive impairment. Current Hospital Diet Patient's current hospital diet: Regular Diet Discharge Diet Recommended Diet: Regular Diet Procedures Procedures Performed: MRI brain - negative for acute stroke; evidence of old stroke in the right MCA territory. CT head - negative for ICH. Lumbar spine x-rays with likely old thoracic compression fractures and spondylolisthesis of l-spine. Pending Studies Studies pending at discharge: no Physician Orders On Transfer Special Precautions: fall Dressing Changes: none Vital Signs: per routine Additional Orders: BMP in 2-3 days for stability of creatinine & electrolytes. POLST Discussion: Not Applicable Medical Emergencies . Who to Call and When: Medical Emergencies: If at any time you feel your situation is an emergency, please call 911 immediately. . Non-Emergent Contact Non-Emergency issues call your: Primary Care Provider Call Non-Emergent contact if: you have any medication questions . . "Provider Documentation" section prepared by Russel Baca. . Core Measure Problem Core Measures: None
[2017-06-22] MEDS ORDERED: RIVAROXABAN TAB 15 MG TAB PO SCH (17:00)
--- NOTE | 2017-06-28 12:46 | Discharge Summary ---
Discharge Summary Date of Service Jun 28, 2017. Discharge Summary Admission Date: Jun 20, 2017 at 13:48 Discharge Date: Jun 22, 2017 Discharge Disposition: Rehab ([facility]) Principal Diagnosis: acute kidney injury - resolved Problems/Secondary Diagnoses: 1. mild rhabdomyolysis - resolved 2. age-indeterminate thoracic compression fractures 3. ambulatory dysfunction. 4. COPD 5. tobacco dependence 6. HTN 7. hyperlipidemia 8. suspected paroxysmal a. fib seen on telemetry 9. 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 CT head - old right-sided MCA territory stroke 2. MRI brain - old right-sided MCA territory stroke; no NEW stroke 3. lumbar spine x-rays - IMPRESSION: 1. T11, T12, and L1 endplate compression fractures of indeterminate age 22. Grade 2/4 spondylolisthesis of L5 on S1. 3. Osteopenia 4. cxr - no pneumonia Consultations: PT, OT Medication Reconciliation New Medications: Ipratropium-Albuterol (Combivent Respimat) 1 Aer Aer 1 PUFFS INH QID PRN for cough/wheeze, #1 INH 0 Refills Atorvastatin (Atorvastatin Calcium) 20 Mg Tab 20 MG PO HS, #30 TAB 5 Refills Metoprolol Tartrate (Lopressor) 25 Mg Tab 25 MG PO BID, #60 TAB 5 Refills Rivaroxaban (Xarelto) 15 Mg Tab 15 MG PO QDD, #30 TAB 5 Refills Continued Medications: Multivitamin (Multivitamin) Tab 1 TAB PO DAILY, TAB Discontinued Medications: Aspirin (Aspirin Ec) 81 Mg Tab 81 MG PO DAILY Discharge Exam Physical Exam: General Appearance: no apparent distress, + thin ENT: pharynx normal Neck: no JVD Respiratory/Chest: no respiratory distress, no accessory muscle use, + wheezing (occasional) Cardiovascular: regular rate, rhythm, no gallop, no murmur, normal peripheral pulses Abdomen / GI: normal bowel sounds, non tender, soft, no organomegaly Extremities: no pedal edema Neurologic/Psychiatric: alert, + motor weakness (LUE/LLE- mild), + disoriented Hospital Course HISTORY OF PRESENT ILLNESS: 87 y/o female with history of HTN, hyperlipidemia, COPD, avid smoker, medical noncompliance, and prior right-sided MCA territory stroke in 02/2017 with residual LUE weakness. For the past 3 days she describes being too weak to ambulate. She was found crawling around her trailer one day prior, by her son, who helped her up but did not bring her into the hospital at the time. She was again found crawling around her trailer by her daughter today and was finally transported to the hospital. She denies any symptoms aside from weakness. Her daughter states that she may be coughing more than usual. Initial exam reveals left upper extremity weakness which is expected based on her previous stroke and similar to her exam at that time. She also displays left lower extremity weakness and ataxia which may be new. She states that she was provided with 2 prescriptions upon discharge in February. These per our records included Norvasc and a Statin. When she ran out of the initial Rx she did not refill them and has taken only 81mg ASA since. A CT brain does not reveal an acute CVA. Initial labs are consistent with dehydration and mild rhabdomyolysis. HOSPITAL COURSE: The patient's acute kidney injury and mild rhabdomyolysis were treated with IV hydration. I was unclear if the two issues were connected or were separate problems. [id number] both her creatinine & CPK normalized. I suspect dehydration led to the acute kidney injury. No infections were found during this hospitalization. The patient's weakness improved during her stay with PT & OT. Inpatient rehab, however, was recommended due to ongoing ambulatory dysfunction. She intermittently complained of lumbar back pain. X-rays obtained showed multiple lower thoracic compression fractures. These were age-indeterminate. She had no signs of neurological compromise on exam. Other issues addressed - 1. HTN - was uncontrolled at presentation. She was started on beta carlos alberto with improvement in BPs. 2. paroxysmal a. fib - on monitoring there were at least 2 brief runs of what appeared to be PAF. PAT was possible as well but again it looked more like PAF. Records from her 02/2017 hospital stay when she had her stroke suggest there was suspected but not confirmed PAF during that time as well. In light of that stroke history and high CHADS score anticoagulation was recommended. She was started on xarelto 15mg once daily for that purpose. Her son was made aware that anticoagulation was begun. 3. hypoglycemia - this occurred once and did not recur thereafter. Cortisol level was normal. Likely due to poor oral intake. She will transfer to [facility] for ongoing rehab after discharge. Total Time Spent: Greater than 30 minutes This includes examination of the patient, discharge planning, medication reconciliation, and communication with other providers. Discharge Instructions Please refer to the electronic Patient Visit Report (Discharge Instructions) for additional information. Follow-Up 1. see medical staff coordinator of [facility] within 2 days 2. see PCP within 1 week of discharge from [facility] 3. consider outpatient 30-day event monitor to assess a. fib burden Additional Copies To [facility], Anusha Dias; Ángel Calero M.D.; Hannah Quintana, C.R.N.P
[2017-07-24] MEDS ORDERED: LSN25 PO (07:01)
[2017-07-24] MEDS ORDERED: NICO21DI4 TD (07:01)
[2017-07-24] MEDS ORDERED: LNX125 PO (07:01)
[2017-07-24] MEDS ORDERED: DXY100 PO ×2 (07:01→07:12)
== END 2017-06-22 14:41 | DRG 683 ==
LOC: EDBD 13:05 → C.EDA 13:07 → C.MED 17:13 → ENRESERV 17:37 → OBSVTOIN 06-20 13:48
PROVIDERS: ADMIT Internal Medicine; ATTEND Internal Medicine
DX: N17.9 Acute kidney failure, unspecified (principal); M62.82 Rhabdomyolysis; I69.354 Hemiplegia and hemiparesis following cerebral infarction affecting left non-dominant side; I47.1 Supraventricular tachycardia; E86.0 Dehydration; M62.81 Muscle weakness (generalized); R26.89 Other abnormalities of gait and mobility; I48.91 Unspecified atrial fibrillation; F17.210 Nicotine dependence, cigarettes, uncomplicated; M54.5 Low back pain; M43.16 Spondylolisthesis, lumbar region; I10 Essential (primary) hypertension; J44.9 Chronic obstructive pulmonary disease, unspecified; E16.2 Hypoglycemia, unspecified; R63.8 Other symptoms and signs concerning food and fluid intake; E87.6 Hypokalemia; M81.0 Age-related osteoporosis without current pathological fracture; Z91.81 History of falling; Z91.19 Patient's noncompliance with other medical treatment and regimen; Z87.81 Personal history of (healed) traumatic fracture; Z79.82 Long term (current) use of aspirin

== ENCOUNTER 2017-07-17 15:44 | Inpatient (IN) | payer OTHER ==
[~2017-07-17] VITALS: Ht 149.9 cm; Wt 85.6 kg
[~2017-07-17 15:44] MED LIST changes: -AMLO-114 PO; +IPRA1AER2 INH; -KFL500 PO; +LPR25 PO; +LPT20 PO; -LPT40 PO; -LSN10 PO; +MULT-506 PO; -MULT-513 PO; -PLV75 PO; +SODIUM CHLORIDE 0.9% 1000ML 1,000 ML IV SCH; +XRL15 PO
--- NOTE | 2017-07-17 16:29 | DIAGNOSTIC IMAGING REPORT ---
HEAD WITHOUT CONTRAST (CT) CLINICAL HISTORY: 87 years-old Female presenting with Stroke. TECHNIQUE: Multidetector CT imaging of the head was performed without the use of intravenous contrast. IV contrast: None. A dose lowering technique was used consistent with the principles of ALARA (as low as reasonably achievable). COMPARISON: 06/19/2017. CT DOSE (mGy.cm): The estimated cumulative dose is 638.56 mGycm. 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 Proportional ventricular and sulcal prominence, likely age-related parenchymal volume loss. Periventricular and subcortical white matter hypoattenuation, nonspecific but likely indicative of chronic small vessel ischemic change. Redemonstration of chronic right temporoparietal infarct. Old lacunar infarct in the right subinsular region. No mass effect or midline shift. No hemorrhage or acute territorial infarct. No extra-axial fluid collection. Paranasal sinuses and mastoid air cells clear. Calvarium intact. Soft tissue swelling of the subcutaneous tissue overlying the right vertex. IMPRESSION: 1. No acute intracranial pathology. 2. Chronic right temporoparietal infarct and old lacunar infarct in the right subinsular region. 3. Possible subcutaneous tissue swelling over the right vertex. Correlate clinically. Electronically signed by: Ángel Jaime M.D. 07/17/2017 4:28 PM Dictated Date/Time: 07/17/2017 4:25 PM
[2017-07-17 16:51] LABS: URINE APPEARANCE CLEAR (CLEAR); URINE BILIRUBIN NEG (NEG); URINE COLOR YELLOW; URINE NITRITE NEG (NEG); URINE SPECIFIC GRAVITY 1.018 (1.000-1.030); UROBILINOGEN NEG (NEG); ZZURINE CULT IF INDIC CATH NO
[2017-07-17 16:52] LABS: MANUAL MICROSCOPIC REQUIRED? NO; REVIEW REQ? NO
[2017-07-17 17:02] LABS: BASO % 0.1 %; BASO ABS # 0.01 K/uL (0-0.2); COMPLETE YES; HEMATOCRIT 37.8 % (37-47); IG% 0.2 %; LYMPH % 11.2 %; LYMPH ABS # 0.92 K/uL (1.2-3.4); MEAN CELL VOLUME 89.8 fL (80-100); MEAN CORPUSCULAR HEMOGLOBIN 30.4 pg (25-34); MEAN CORPUSCULAR HGB CONC 33.9 g/dl (32-36); MEAN PLATELET VOLUME 9.2 fL (7.4-10.4); MONO % 11.7 %; NEUT % 76.8 %; PLATELET COUNT 222 K/uL (130-400); RED BLOOD COUNT 4.21 M/uL (4.2-5.4); WHITE BLOOD COUNT 8.19 K/uL (4.8-10.8)
[2017-07-17 17:09] LABS: INR 1.1 (0.9-1.1); PARTIAL THROMBOPLASTIN RATIO 1.1
[2017-07-17 17:15] LABS: BENZODIAZEPINE, URINE NEG (NEG); COCAINE,URINE NEG (NEG); PHENCYCLIDINE, URINE NEG (NEG)
[2017-07-17 17:27] LABS: BUN/CREATININE RATIO 16.8 (10-20); CALCIUM 9.1 mg/dl (8.5-10.1); CREATININE 1.3 mg/dl (0.60-1.20); POTASSIUM 3.7 mmol/L (3.5-5.1)
--- NOTE | 2017-07-17 17:27 | DIAGNOSTIC IMAGING REPORT ---
CERVICAL SPINE W/O CLINICAL HISTORY: 87 years-old Female presenting with ams . TECHNIQUE: Multidetector CT of the cervical spine was performed without the use of intravenous contrast. IV contrast: None. A dose lowering technique was used consistent with the principles of ALARA (as low as reasonably achievable). COMPARISON: None. CT DOSE (mGy.cm): The estimated cumulative dose is 375.83 mGycm. 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 Normal cervical lordosis. Minimal retrolisthesis of C3 on C4 with the remaining vertebral bodies normal in height and alignment. Intervertebral disc height loss at nearly every level secondary to diffuse disc osteophyte complexes. Slight rotatory subluxation of C1 on C2 without transverse displacement of the lateral masses of C1 on C2. No acute fracture. Mild osseous neural foraminal narrowing to varying degrees at several levels secondary to disc osteophyte complexes and uncovertebral hypertrophy. No osseous spinal canal narrowing. Paraspinal soft tissues within normal limits. Subcentimeter right thyroid lobe nodule noted. Atherosclerosis of the bilateral carotid bulbs. Interlobular septal thickening noted at the lung apices. IMPRESSION: 1. Rotatory subluxation of C1 on C2 may be positional. Otherwise no evidence of acute osseous injury of the cervical spine. If there is clinical concern for acute ligamentous injury, noncontrast MR of the cervical spine should be obtained. 2. Multilevel degenerative changes. 3. Interlobular septal thickening at the lung apices could indicate volume overload. Electronically signed by: Ángel Jaime M.D. 07/17/2017 5:26 PM Dictated Date/Time: 07/17/2017 5:19 PM
[2017-07-17 17:47] LABS: CKMB/CK RATIO 1.1 (0-3.0)
[2017-07-17] MEDS ORDERED: LEVAQUIN 500MG / 100ML D5W IV ONE (18:00)
--- NOTE | 2017-07-17 18:07 | DIAGNOSTIC IMAGING REPORT ---
CHEST ONE VIEW PORTABLE CLINICAL HISTORY: 87 years-old Female presenting with STROKE. TECHNIQUE: Portable upright AP view of the chest was obtained. COMPARISON: 06/19/2017. FINDINGS: Atherosclerosis of aortic arch. Cardiac silhouette mildly enlarged. Prominence of pulmonary vasculature. Prominent lung markings without focal infiltrate. No pleural effusion or pneumothorax. Osseous structures normal. Cholecystectomy clips noted. IMPRESSION: 1. Mild cardiomegaly with suggestion of volume overload. No focal infiltrate. Electronically signed by: Ángel Jaime M.D. 07/17/2017 6:06 PM Dictated Date/Time: 07/17/2017 6:04 PM
[2017-07-17] MEDS ORDERED: IPRATROPIUM BROMIDE/ALBUTEROL respimat INH INH PRN (18:30)
[2017-07-17] MEDS ORDERED: ACETAMINOPHEN 325 MG TAB PO PRN (18:30)
[2017-07-17] MEDS ORDERED: ONDANSETRON INJ 2 MG/ML 2 ML VIAL IV PRN (18:30)
--- NOTE | 2017-07-17 18:47 | History and Physical ---
History & Physical Date & Time of Service: Jul 17, 2017 at 18:32 Chief Complaint: Stroke Sx Primary Care Physician: Hannah Quintana, LexNAngelaP History of Present Illness Source: patient 87 y/o F who was brought to [facility] by EMS after her son find her lying face down at home. Pt was apparently disheveled and her home was in a state of disarray. It is unclear as to what happened. Pt denies memory of event but states she has no concerns at this time other than wanting to get out of bed. Pt denies fever, SOB, chest pain, abd pain, n/v/c/d, LE pain or swelling. He apparently reported to EMS that pt was WNL around 6pm last night. Per nursing: Nurse was able to speak with pt's daughter, however pt's daughter states that pt's son has more information regarding pt's medications and health status. Pt's son has been unable to be reached thus far. Nursing states that pt was not answering questions or following commands until my interview/exam. Nursing states that pt had many bugs on her when she was brought in. Daughter told nursing that pt has many cats. Noted that pt was a d/c from [facility] to [facility] on 06/28/17 after being hospitalized on 06/19/17 for acute rhabdo. See those notes for details, however per H&P pt had been found on multiple occasions by her son too weak to walk and was crawling around her trailer. There was suggestion of afib on that admission and pt was started on xarelto. Prior to that admission, pt was noted to be noncompliant with her medications. Past Medical/Surgical History Medical Problems: (1) Hyperlexia Status: Chronic (2) Hypertension Status: Chronic Afib COPD Hyperlipidemia Family History Family history was reviewed; no changes noted. Social History Smoking Status: Current Every Day Smoker (per prior H&P) Alcohol Use: denies but uncertain about pt's mentation Marital Status: Housing status: lives with family Occupational Status: retired Immunizations History of Influenza Vaccine: Yes Influenza Vaccine Date: Aug 02, 2008 History of Tetanus Vaccine?: Unknown History of Pneumococcal: No History of Hepatitis B Vaccine: No Multi-Drug Resistant Organisms History of MDRO: No Allergies Coded Allergies: Morphine (Verified Allergy, Unknown, hallucinations, 06/19/17) Home Medications Scheduled Atorvastatin (Atorvastatin Calcium), 20 MG PO HS Metoprolol Tartrate (Lopressor), 25 MG PO BID Multivitamin (Multivitamin), 1 TAB PO DAILY Rivaroxaban (Xarelto), 15 MG PO QDD Scheduled PRN Ipratropium-Albuterol (Combivent Respimat), 1 PUFFS INH QID PRN for cough/wheeze Review of Systems Pertinent positives and negatives reviewed in HPI--all others negative Physical Exam Vital Signs Date Time Temp Pulse Resp B/P (MAP) Pulse Ox O2 Delivery O2 Flow Rate FiO2 07/17/17 17:17 53 07/17/17 16:44 52 18 190/90 100 Nasal Cannula 4.0 07/17/17 16:42 100 Nasal Cannula 4.0 07/17/17 15:45 36.4 69 18 162/68 90 Room Air General Appearance: no apparent distress, + thin Head: normocephalic, atraumatic Eyes: normal inspection, EOMI ENT: hearing grossly normal Respiratory/Chest: normal breath sounds, no respiratory distress Cardiovascular: regular rate, rhythm, no edema Abdomen/GI: non tender, soft Extremities/Musculoskelatal: no calf tenderness, no pedal edema Neurologic/Psych: alert, oriented x 3, + pertinent finding (does not answer all questions, but follows simple commands at times) Skin: warm/dry, + pertinent finding (small bites noted on hands and feet) Diagnostics Laboratory Results Results Past 24 Hours Test 07/17/17 15:55 07/17/17 16:33 07/17/17 16:45 Range/Units Urine Color YELLOW Urine Appearance CLEAR CLEAR Urine pH 7.0 4.5-7.5 Urine Specific [place] 1.018 1.000-1.030 Urine Protein 3+ NEG Urine Glucose (UA) NEG NEG Urine Ketones TRACE NEG Urine Occult Blood NEG NEG Urine Nitrite NEG NEG Urine Bilirubin NEG NEG Urine Urobilinogen NEG NEG Urine Leukocyte Esterase NEG NEG Urine WBC (Auto) 1-5 0-5 /hpf Urine RBC (Auto) 0-4 0-4 /hpf Urine Hyaline Casts (Auto) 1-5 0-5 /lpf Urine Epithelial Cells (Auto) 10-20 0-5 /lpf Urine Bacteria (Auto) NEG NEG Urine Opiates Screen NEG NEG Urine Methadone, Qualitative NEG NEG Urine Barbiturates NEG NEG Urine Phencyclidine (PCP) Level NEG NEG Ur Amphetamine/Methamphetamine NEG NEG MDMA (Ecstasy) Screen NEG NEG Urine Benzodiazepines Screen NEG NEG Urine Cocaine Metabolite NEG NEG Urine Marijuana (THC) NEG NEG Bedside Prothrombin Time INR 1.2 0.9-1.1 Bedside Glucose 88 70-90 mg/dl White Blood Count 8.19 4.8-10.8 K/uL Red Blood Count 4.21 4.2-5.4 M/uL Hemoglobin 12.8 12.0-16.0 g/dL Hematocrit 37.8 37-47 % Mean Corpuscular Volume 89.8 80-100 fL Mean Corpuscular Hemoglobin 30.4 25-34 pg Mean Corpuscular Hemoglobin Concent 33.9 32-36 g/dl Platelet Count 222 130-400 K/uL Mean Platelet Volume 9.2 7.4-10.4 fL Neutrophils (%) (Auto) 76.8 % Lymphocytes (%) (Auto) 11.2 % Monocytes (%) (Auto) 11.7 % Eosinophils (%) (Auto) 0.0 % Basophils (%) (Auto) 0.1 % Neutrophils # (Auto) 6.28 1.4-6.5 K/uL Lymphocytes # (Auto) 0.92 1.2-3.4 K/uL Monocytes # (Auto) 0.96 0.11-0.59 K/uL Eosinophils # (Auto) 0.00 0-0.5 K/uL Basophils # (Auto) 0.01 0-0.2 K/uL RDW Standard Deviation 46.4 36.4-46.3 fL RDW Coefficient of Variation 14.1 11.5-14.5 % Immature Granulocyte % (Auto) 0.2 % Immature Granulocyte # (Auto) 0.02 0.00-0.02 K/uL Prothrombin Time 12.0 9.0-12.0 SECONDS Prothromb Time International Ratio 1.1 0.9-1.1 Activated Partial Thromboplast Time 27.5 21.0-31.0 SECONDS Partial Thromboplastin Ratio 1.1 Sodium Level 138 136-145 mmol/L Potassium Level 3.7 3.5-5.1 mmol/L Chloride Level 100 98-107 mmol/L Carbon Dioxide Level 32 21-32 mmol/L Anion Gap 6.0 3-11 mmol/L Blood Urea Nitrogen 22 7-18 mg/dl Creatinine 1.30 0.60-1.20 mg/dl Est Creatinine Clear Calc Drug Dose 21.9 ml/min Estimated GFR () 42.7 Estimated GFR (Non- 36.9 BUN/Creatinine Ratio 16.8 10-20 Random Glucose 100 70-99 mg/dl Calcium Level 9.1 8.5-10.1 mg/dl Total Bilirubin 0.7 0.2-1 mg/dl Direct Bilirubin 0.2 0-0.2 mg/dl Aspartate Amino Transf (AST/SGOT) 23 15-37 U/L Alanine Aminotransferase (ALT/SGPT) 39 12-78 U/L Alkaline Phosphatase 88 45-117 U/L Total Creatine Kinase 157 26-192 U/L Creatine Kinase MB 1.7 0.5-3.6 ng/ml Creatine Kinase MB Ratio 1.1 0-3.0 Troponin I 0.187 0-0.045 ng/ml Total Protein 7.1 6.4-8.2 gm/dl Albumin 3.4 3.4-5.0 gm/dl Diagnostic Radiology C-spine CT: 1. Rotatory subluxation of C1 on C2 may be positional. Otherwise no evidence of acute osseous injury of the cervical spine. If there is clinical concern for acute ligamentous injury, noncontrast MR of the cervical spine should be obtained. 2. Multilevel degenerative changes. 3. Interlobular septal thickening at the lung apices could indicate volume overload. CT head neg for acute CXR with possible volume overload Impression Assessment and Plan 87 y/o F who was admitted on 07/17 with AMS AMS: uncertain etiology, possibly dehydration CT head neg for acute CXR neg UA neg WBC WNL, afebrile Given a dose of levaquin in the ED, will hold for now given no clear source of infection Monitor on IVF Trop with mild elevation, was neg on 06/19--serials pending Cr 1.3, was WNL on 06/22 Lyme, B12, folate pending TSH WNL on last admission, will not repeat t/c ECHO, carotid US if not improving with IVF ARF: likely dehydration given recent normal cr Monitor on IVF HTN: labile, monitor on home meds COPD: continue home meds Afib: monitor on tele Continue xarelto although given pt's recent hx, anticoagulation may not be a good option for pt Hyperlipidemia: continue home meds Tobacco use: nicotine patch PRN Other: Uncertain code status, this will need clarified with family Xarelto for DVT proph NPO with IVF until mentation improves CM alerted to admission. PT/OT pending. It seems that pt lives alone with some help from her children, however given recent events this situation may no longer be appropriate Level of Care Telemetry VTE Prophylaxis VTE Risk Assessment Done? Y/N: Yes Risk Level: Low
[2017-07-17 20:05] VITALS: BP 188/78; PULSE 56; TEMP 36.7; O2SAT 95; Ht 149.9 cm; Wt 85.6 kg
[2017-07-17 20:40] LABS: LYME DISEASE AB IGG POS (NEG); LYME DISEASE AB IGM EQUIVOCAL (NEG)
[2017-07-17] MEDS: METOPROLOL TARTRATE 25 MG TAB PO SCH (21:00)
[2017-07-17] MEDS: ATORVASTATIN 20 MG TAB PO SCH (21:00)
[2017-07-17] MEDS: SODIUM CHLORIDE 0.9% 1000ML 1,000 ML IV SCH (21:49)
--- NOTE | 2017-07-17 21:51 | EMERGENCY ROOM VISIT NOTE ---
History Report prepared by Scribe: Moises Mejia Under the Supervision of: Dr. Alonso Rose D.O. First contact with patient: 15:40 Chief Complaint: STROKE SYMPTOMS Stated Complaint: STROKE SX History of Present Illness The patient is a 87 year old female who presents to the Emergency Room with complaints of a possible stroke that occurred prior to arrival. Per EMS, the patient was found by her son face down on the floor. He reports that the patient was disheveled and disoriented after finding her. They report that the son last saw the patient normal at 1800 last night. The patient denies any pain. The HPI is limited due to the patient's condition. 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 Review of Systems The ROS is limited due to the patient's condition. 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 Social History Smoking Status: Current Every Day Smoker Alcohol Use: none Drug Use: none Marital Status: Housing Status: lives alone Occupation Status: retired Current/Historical Medications Scheduled Atorvastatin (Atorvastatin Calcium), 20 MG PO HS Metoprolol Tartrate (Lopressor), 25 MG PO BID Multivitamin (Multivitamin), 1 TAB PO DAILY Rivaroxaban (Xarelto), 15 MG PO QDD Scheduled PRN Ipratropium-Albuterol (Combivent Respimat), 1 PUFFS INH QID PRN for cough/wheeze Allergies Coded Allergies: Morphine (Verified Allergy, Unknown, hallucinations, 06/19/17) Physical Exam Vital Signs Date Time Temp Pulse Resp B/P (MAP) Pulse Ox O2 Delivery O2 Flow Rate FiO2 07/17/17 17:17 53 07/17/17 16:44 52 18 190/90 100 Nasal Cannula 4.0 07/17/17 16:42 100 Nasal Cannula 4.0 07/17/17 15:45 36.4 69 18 162/68 90 Room Air Physical Exam GENERAL: laying on stretcher, ill appearing, cachetic, intermittently mumbling. EYE EXAM: normal conjunctiva, EOM's grossly intact. OROPHARYNX: no exudate, no erythema, lips, buccal mucosa, and tongue normal and mucous membranes are moist NECK: supple, no nuchal rigidity, no adenopathy, non-tender LUNGS: Clear to auscultation. Normal chest wall mechanics HEART: no murmurs, S1 normal and S2 normal ABDOMEN: abdomen soft, non-tender, normo-active bowel sounds, no masses, no rebound or guarding. BACK: Back is symmetrical on inspection and there is no deformity, no midline tenderness, no CVA tenderness. SKIN: no rashes and no bruising UPPER EXTREMITIES: upper extremities are grossly normal. LOWER EXTREMITIES: No pitting edema. NEURO EXAM: Alert. Intermittently following directions. Nonfocal on exam. Unable to perform drift or finger to nose. Medical Decision & Procedures ER Provider Diagnostic Interpretation: Radiology results as stated below per my review and the radiologist's interpretation: HEAD WITHOUT CONTRAST (CT) CLINICAL HISTORY: 87 years-old Female presenting with Stroke. TECHNIQUE: Multidetector CT imaging of the head was performed without the use of intravenous contrast. IV contrast: None. A dose lowering technique was used consistent with the principles of ALARA (as low as reasonably achievable). COMPARISON: 06/19/2017. CT DOSE (mGy.cm): The estimated cumulative dose is 638.56 mGycm. FINDINGS: Gem Expert topogram: Unremarkable. Proportional ventricular and sulcal prominence, likely age-related parenchymal volume loss. Periventricular and subcortical white matter hypoattenuation, nonspecific but likely indicative of chronic small vessel ischemic change. Redemonstration of chronic right temporoparietal infarct. Old lacunar infarct in the right subinsular region. No mass effect or midline shift. No hemorrhage or acute territorial infarct. No extra-axial fluid collection. Paranasal sinuses and mastoid air cells clear. Calvarium intact. Soft tissue swelling of the subcutaneous tissue overlying the right vertex. IMPRESSION: 1. No acute intracranial pathology. 2. Chronic right temporoparietal infarct and old lacunar infarct in the right subinsular region. 3. Possible subcutaneous tissue swelling over the right vertex. Correlate clinically. Electronically signed by: Ángel Jaime M.D. 07/17/2017 4:28 PM Dictated Date/Time: 07/17/2017 4:25 PM CERVICAL SPINE W/O CLINICAL HISTORY: 87 years-old Female presenting with ams . TECHNIQUE: Multidetector CT of the cervical spine was performed without the use of intravenous contrast. IV contrast: None. A dose lowering technique was used consistent with the principles of ALARA (as low as reasonably achievable). COMPARISON: None. CT DOSE (mGy.cm): The estimated cumulative dose is 375.83 mGycm. FINDINGS: Gem Expert topogram: Unremarkable. Normal cervical lordosis. Minimal retrolisthesis of C3 on C4 with the remaining vertebral bodies normal in height and alignment. Intervertebral disc height loss at nearly every level secondary to diffuse disc osteophyte complexes. Slight rotatory subluxation of C1 on C2 without transverse displacement of the lateral masses of C1 on C2. No acute fracture. Mild osseous neural foraminal narrowing to varying degrees at several levels secondary to disc osteophyte complexes and uncovertebral hypertrophy. No osseous spinal canal narrowing. Paraspinal soft tissues within normal limits. Subcentimeter right thyroid lobe nodule noted. Atherosclerosis of the bilateral carotid bulbs. Interlobular septal thickening noted at the lung apices. IMPRESSION: 1. Rotatory subluxation of C1 on C2 may be positional. Otherwise no evidence of acute osseous injury of the cervical spine. If there is clinical concern for acute ligamentous injury, noncontrast MR of the cervical spine should be obtained. 2. Multilevel degenerative changes. 3. Interlobular septal thickening at the lung apices could indicate volume overload. Electronically signed by: Ángel Jaime M.D. 07/17/2017 5:26 PM Dictated Date/Time: 07/17/2017 5:19 PM CHEST ONE VIEW PORTABLE CLINICAL HISTORY: 87 years-old Female presenting with STROKE. TECHNIQUE: Portable upright AP view of the chest was obtained. COMPARISON: 06/19/2017. FINDINGS: Atherosclerosis of aortic arch. Cardiac silhouette mildly enlarged. Prominence of pulmonary vasculature. Prominent lung markings without focal infiltrate. No pleural effusion or pneumothorax. Osseous structures normal. Cholecystectomy clips noted. IMPRESSION: 1. Mild cardiomegaly with suggestion of volume overload. No focal infiltrate. Electronically signed by: Ángel Jaime M.D. 07/17/2017 6:06 PM Dictated Date/Time: 07/17/2017 6:04 PM Laboratory Results 07/17/17 16:45 Red Blood Count 4.21, Mean Corpuscular Volume 89.8, Mean Corpuscular Hemoglobin 30.4, Mean Corpuscular Hemoglobin Concent 33.9, Mean Platelet Volume 9.2, Neutrophils (%) (Auto) 76.8, Lymphocytes (%) (Auto) 11.2, Monocytes (%) (Auto) 11.7, Eosinophils (%) (Auto) 0.0, Basophils (%) (Auto) 0.1, Neutrophils # (Auto ) 6.28, Lymphocytes # (Auto) 0.92, Monocytes # (Auto) 0.96, Eosinophils # (Auto ) 0.00, Basophils # (Auto) 0.01 07/17/17 16:45 Test 07/17/17 15:55 07/17/17 16:33 07/17/17 16:45 Urine Color YELLOW Urine Appearance CLEAR (CLEAR) Urine pH 7.0 (4.5-7.5) Urine Specific [place] 1.018 (1.000-1.030) Urine Protein 3+ (NEG) Urine Glucose (UA) NEG (NEG) Urine Ketones TRACE (NEG) Urine Occult Blood NEG (NEG) Urine Nitrite NEG (NEG) Urine Bilirubin NEG (NEG) Urine Urobilinogen NEG (NEG) Urine Leukocyte Esterase NEG (NEG) Urine WBC (Auto) 1-5 /hpf (0-5) Urine RBC (Auto) 0-4 /hpf (0-4) Urine Hyaline Casts (Auto) 1-5 /lpf (0-5) Urine Epithelial Cells (Auto) 10-20 /lpf (0-5) Urine Bacteria (Auto) NEG (NEG) Urine Opiates Screen NEG (NEG) Urine Methadone, Qualitative NEG (NEG) Urine Barbiturates NEG (NEG) Urine Phencyclidine (PCP) Level NEG (NEG) Ur Amphetamine/Methamphetamine NEG (NEG) MDMA (Ecstasy) Screen NEG (NEG) Urine Benzodiazepines Screen NEG (NEG) Urine Cocaine Metabolite NEG (NEG) Urine Marijuana (THC) NEG (NEG) Bedside Prothrombin Time INR 1.2 (0.9-1.1) Bedside Glucose 88 mg/dl (70-90) White Blood Count 8.19 K/uL (4.8-10.8) Red Blood Count 4.21 M/uL (4.2-5.4) Hemoglobin 12.8 g/dL (12.0-16.0) Hematocrit 37.8 % (37-47) Mean Corpuscular Volume 89.8 fL (80-100) Mean Corpuscular Hemoglobin 30.4 pg (25-34) Mean Corpuscular Hemoglobin Concent 33.9 g/dl (32-36) Platelet Count 222 K/uL (130-400) Mean Platelet Volume 9.2 fL (7.4-10.4) Neutrophils (%) (Auto) 76.8 % Lymphocytes (%) (Auto) 11.2 % Monocytes (%) (Auto) 11.7 % Eosinophils (%) (Auto) 0.0 % Basophils (%) (Auto) 0.1 % Neutrophils # (Auto) 6.28 K/uL (1.4-6.5) Lymphocytes # (Auto) 0.92 K/uL (1.2-3.4) Monocytes # (Auto) 0.96 K/uL (0.11-0.59) Eosinophils # (Auto) 0.00 K/uL (0-0.5) Basophils # (Auto) 0.01 K/uL (0-0.2) RDW Standard Deviation 46.4 fL (36.4-46.3) RDW Coefficient of Variation 14.1 % (11.5-14.5) Immature Granulocyte % (Auto) 0.2 % Immature Granulocyte # (Auto) 0.02 K/uL (0.00-0.02) Prothrombin Time 12.0 SECONDS (9.0-12.0) Prothromb Time International Ratio 1.1 (0.9-1.1) Activated Partial Thromboplast Time 27.5 SECONDS (21.0-31.0) Partial Thromboplastin Ratio 1.1 Anion Gap 6.0 mmol/L (3-11) Est Creatinine Clear Calc Drug Dose 21.9 ml/min Estimated GFR () 42.7 Estimated GFR (Non- 36.9 BUN/Creatinine Ratio 16.8 (10-20) Calcium Level 9.1 mg/dl (8.5-10.1) Total Bilirubin 0.7 mg/dl (0.2-1) Direct Bilirubin 0.2 mg/dl (0-0.2) Aspartate Amino Transf (AST/SGOT) 23 U/L (15-37) Alanine Aminotransferase (ALT/SGPT) 39 U/L (12-78) Alkaline Phosphatase 88 U/L (45-117) Total Creatine Kinase 157 U/L (26-192) Creatine Kinase MB 1.7 ng/ml (0.5-3.6) Creatine Kinase MB Ratio 1.1 (0-3.0) Troponin I 0.187 ng/ml (0-0.045) Total Protein 7.1 gm/dl (6.4-8.2) Albumin 3.4 gm/dl (3.4-5.0) Lyme Disease IgG Antibody POS (NEG) Laboratory results per my review. Medications Administered Medications (Trade) Dose Ordered Sig/Paco Route Start Time Stop Time Status Last Admin Dose Admin Sodium Chloride 1,000 ml @ 50 mls/hr Q20H IV 07/17/17 15:40 07/17/17 20:40 DC 07/17/17 15:40 50 MLS/HR Levofloxacin (Levaquin / D5W) 500 mg NOW ONCE IV 07/17/17 18:00 07/17/17 18:01 DC 07/17/17 18:24 500 MG ECG Indication: altered mental status Rate (beats per minute): 55 Rhythm: sinus bradycardia Findings: Q waves (Septal), ST depression (Lateral), T-wave inversion (Lateral) , other (Normal axis) Comparison ECG Date: 06/19/17 Change: no significant change ED Course ED COURSE: Vital signs were reviewed and showed hypertension The patients medical record was reviewed The above diagnostic studies were performed and reviewed. ED treatments and interventions as stated above. 1549: The patient was evaluated in room B03B. A complete history and physical examination was performed. 1540: Ordered Sodium Chloride 1000 ml @ 50 mls/hr IV. 1756: I discussed the patient's case with Dr. Mojica, [facility] Hospitalist. She understands the patient's condition and agrees to accept the patient. The patient will be further evaluated. 1800: Ordered Levofloxacin 500 mg IV. Medical Decision Differential diagnoses includes but is not limited to toxic, metabolic, infectious, traumatic, cardiac, neurologic, hematologic, psychiatric and inflammatory etiologies. Patient is an 87-year-old female who presents to ER for altered mental status. Patient was last seen last night. On exam she is confused. No family at bedside. CBC along with the MP, LFTs and bilirubin was unremarkable. Troponin was detectable at 0.18. UA was negative. CT of the head was negative. CT of cervical spine showed subluxation of C1 to C2. There is no external signs of trauma. Patient's head was rotated to the right at this time. Discussed with radiologist. Favor positional. Patient was placed in cervical collar. Aspirin was given. Patient was given fluids. EKG was nondiagnostic. Patient was admitted to internal medicine for elevated troponin associate with altered mental status. Medication Reconcilliation Current Medication List: was personally reviewed by me Blood Pressure Screening Patient's blood pressure: Elevated blood pressure Blood pressure disposition: Elevated BP felt to be situational Consults Time Called: 1755 Consulting Physician: Dr. Mojica, [facility] Hospitalist Returned Call: [phone] I discussed the patient's case with Dr. Mojica, [facility] Hospitalist. She understands the patient's condition and agrees to accept the patient. The patient will be further evaluated. Impression Primary Impression: Altered mental status Additional Impressions: Elevated troponin Scabies Scribe Attestation The scribe's documentation has been prepared under my direction and personally reviewed by me in its entirety. I confirm that the note above accurately reflects all work, treatment, procedures, and medical decision making performed by me. Departure Information Dispostion Being Evaluated By Hospitalist Referrals Hannah Quintana, C.R.N.P (PCP) Patient Instructions My [facility] Problem Qualifiers Primary Impression: Altered mental status Altered mental status type: unspecified Qualified Codes: R41.82 - Altered mental status, unspecified
[2017-07-17] MEDS: HEPARIN SOD 5000 UNIT/0.5 ML CARP SC SCH (21:53)
[2017-07-17] MEDS ORDERED: HydrALAZINE HCL 20 MG/ML VIAL IV. STA (23:22)
[2017-07-17 23:29] VITALS: BP 182/68; PULSE 57; TEMP 37; O2SAT 99
[2017-07-17] MEDS ORDERED: INFLUENZA VACCINE HIGH DOSE 65+ 0.5 ML SYR IM. ONE (23:30)
[2017-07-17] MEDS ORDERED: INFLUENZA ADMINISTRATION CHARGE ONE (23:30)
[2017-07-18] VITALS (12 sets, daily range): BP systolic 153–227; BP diastolic 56–90; PULSE 54–79; TEMP 36.5–37; O2SAT 22–100
[2017-07-18] MEDS ORDERED: HydrALAZINE HCL 20 MG/ML VIAL IV. ONE (04:30)
[2017-07-18 06:39] LABS: BUN/CREATININE RATIO 22.4 (10-20); CALCIUM 8.5 mg/dl (8.5-10.1); CREATININE 0.96 mg/dl (0.60-1.20); POTASSIUM 3.4 mmol/L (3.5-5.1)
[2017-07-18] MEDS ORDERED: NICOTINE 21 MG/24 HR TDSY TD PRN (09:00)
--- NOTE | 2017-07-18 09:02 | Hospitalist Progress Note ---
Hospitalist Progress Note Date of Service Jul 18, 2017. Subjective Pt evaluation today including: conversation w/ patient, conversation w/ family , physical exam, chart review, lab review, review of studies Pain: none Voiding: incontinence The patient was seen and examined this morning. Pt reports not remembering the order of events prior to her being brought to the hospital. Her daughter Afia is present at bedside and reports that she was found lying under the table, but is unable to provide details about situation. The patient is able to tell me the day of week, month, year and president, although cannot tell me the exact date. I think she is hard of hearing occasionally but does seems a bit confused with her answers at times during my interview. She currently does live at home by herself, although her son lives on her property in his own home and helps her. Constitutional: No fever, No chills, No fatigue Eyes: No diplopia, No problem reported ENT: No nasal symptoms, No trouble swallowing Respiratory: + cough, + wheezing, + problem reported (chronic smoker), No shortness of breath Cardiovascular: No chest pain, No palpitations Abdomen: No pain, No nausea, No vomiting, No diarrhea, No constipation Female : + incontinence Neurologic: No weakness, No numbness/tingling Endo: No fatigue Skin: No rash, No itch Objective Vital Signs Date Time Temp Pulse Resp B/P (MAP) Pulse Ox O2 Delivery O2 Flow Rate FiO2 07/18/17 08:00 36.9 70 20 166/67 (100) 22 Nasal Cannula 4.0 07/18/17 08:00 Nasal Cannula 4.0 07/18/17 05:30 79 153/79 (103) 99 Nasal Cannula 4.0 07/18/17 04:10 36.5 54 20 172/64 (100) 100 Nasal Cannula 4.0 07/18/17 04:00 100 Nasal Cannula 4.0 07/18/17 00:01 99 Nasal Cannula 4.0 07/17/17 23:29 37.0 57 20 182/68 (106) 99 Nasal Cannula 07/17/17 20:05 36.7 56 17 188/78 95 Nasal Cannula 4.0 07/17/17 19:21 54 18 178/68 100 Nasal Cannula 4.0 07/17/17 17:17 53 07/17/17 16:44 52 18 190/90 100 Nasal Cannula 4.0 07/17/17 16:42 100 Nasal Cannula 4.0 07/17/17 15:45 36.4 69 18 162/68 90 Room Air Physical Exam General Appearance: WD/WN, no apparent distress, + thin Eyes: PERRL, EOMI ENT: hearing grossly normal, pharynx normal Neck: supple, + pertinent finding (J collar in place) Respiratory/Chest: no accessory muscle use, + pertinent finding (on 4 L via NC , diminished breath sounds throughout +expiratory wheeze ERIN, no adventitious sounds.) Cardiovascular: regular rate, rhythm, no JVD, no murmur Abdomen: normal bowel sounds, non tender, soft, + pertinent finding (covers are soaked in urine) Extremities: non-tender, no pedal edema, no calf tenderness Neurologic/Psychiatric: alert, normal mood/affect, oriented x 3, + pertinent finding (seems slightly confused at times, follows commands appropriately) Skin: normal color, warm/dry Laboratory Results Last 24 Hours Test 07/17/17 15:55 07/17/17 16:33 07/17/17 16:45 07/17/17 23:08 Urine Color YELLOW Urine Appearance CLEAR Urine pH 7.0 Urine Specific [place] 1.018 Urine Protein 3+ Urine Glucose (UA) NEG Urine Ketones TRACE Urine Occult Blood NEG Urine Nitrite NEG Urine Bilirubin NEG Urine Urobilinogen NEG Urine Leukocyte Esterase NEG Urine WBC (Auto) 1-5 /hpf Urine RBC (Auto) 0-4 /hpf Urine Hyaline Casts (Auto) 1-5 /lpf Urine Epithelial Cells (Auto) 10-20 /lpf Urine Bacteria (Auto) NEG Urine Opiates Screen NEG Urine Methadone, Qualitative NEG Urine Barbiturates NEG Urine Phencyclidine (PCP) Level NEG Ur Amphetamine/Methamphetamine NEG MDMA (Ecstasy) Screen NEG Urine Benzodiazepines Screen NEG Urine Cocaine Metabolite NEG Urine Marijuana (THC) NEG Bedside Prothrombin Time INR 1.2 Bedside Glucose 88 mg/dl White Blood Count 8.19 K/uL Red Blood Count 4.21 M/uL Hemoglobin 12.8 g/dL Hematocrit 37.8 % Mean Corpuscular Volume 89.8 fL Mean Corpuscular Hemoglobin 30.4 pg Mean Corpuscular Hemoglobin Concent 33.9 g/dl Platelet Count 222 K/uL Mean Platelet Volume 9.2 fL Neutrophils (%) (Auto) 76.8 % Lymphocytes (%) (Auto) 11.2 % Monocytes (%) (Auto) 11.7 % Eosinophils (%) (Auto) 0.0 % Basophils (%) (Auto) 0.1 % Neutrophils # (Auto) 6.28 K/uL Lymphocytes # (Auto) 0.92 K/uL Monocytes # (Auto) 0.96 K/uL Eosinophils # (Auto) 0.00 K/uL Basophils # (Auto) 0.01 K/uL RDW Standard Deviation 46.4 fL RDW Coefficient of Variation 14.1 % Immature Granulocyte % (Auto) 0.2 % Immature Granulocyte # (Auto) 0.02 K/uL Prothrombin Time 12.0 SECONDS Prothromb Time International Ratio 1.1 Activated Partial Thromboplast Time 27.5 SECONDS Partial Thromboplastin Ratio 1.1 Sodium Level 138 mmol/L Potassium Level 3.7 mmol/L Chloride Level 100 mmol/L Carbon Dioxide Level 32 mmol/L Anion Gap 6.0 mmol/L Blood Urea Nitrogen 22 mg/dl Creatinine 1.30 mg/dl Est Creatinine Clear Calc Drug Dose 21.9 ml/min Estimated GFR () 42.7 Estimated GFR (Non- 36.9 BUN/Creatinine Ratio 16.8 Random Glucose 100 mg/dl Calcium Level 9.1 mg/dl Total Bilirubin 0.7 mg/dl Direct Bilirubin 0.2 mg/dl Aspartate Amino Transf (AST/SGOT) 23 U/L Alanine Aminotransferase (ALT/SGPT) 39 U/L Alkaline Phosphatase 88 U/L Total Creatine Kinase 157 U/L Creatine Kinase MB 1.7 ng/ml Creatine Kinase MB Ratio 1.1 Troponin I 0.187 ng/ml 0.187 ng/ml Total Protein 7.1 gm/dl Albumin 3.4 gm/dl Lyme Disease IgG Antibody POS Lyme Disease IgM Antibody EQUIVOCAL Vitamin B12 Level 869 pg/mL Folate > 24.00 ng/mL Test 07/18/17 05:11 Sodium Level 138 mmol/L Potassium Level 3.4 mmol/L Chloride Level 101 mmol/L Carbon Dioxide Level 27 mmol/L Anion Gap 10.0 mmol/L Blood Urea Nitrogen 21 mg/dl Creatinine 0.96 mg/dl Est Creatinine Clear Calc Drug Dose 28.2 ml/min Estimated GFR () 61.6 Estimated GFR (Non- 53.2 BUN/Creatinine Ratio 22.4 Random Glucose 79 mg/dl Calcium Level 8.5 mg/dl Troponin I 0.133 ng/ml Assessment and Plan 87 y/o F who was admitted on 07/17 with AMS AMS - etiology is unknown, but possible that this may have been from afib as during last admission pt was started on anticoagulation - Discussion with her son today on the phone, and he spoke with her at 0600 and was well and he found her at approximately 3pm. He's unable to determine the approximate time she may have been down or how she did fall. - CT of the head showing Rotatory subluxation of C1 on C2 may be positional. Otherwise no evidence of acute osseous injury of the cervical spine. If there is clinical concern for acute ligamentous injury, noncontrast MR of the cervical spine should be obtained. 2. Multilevel degenerative changes. 3. Interlobular septal thickening at the lung apices could indicate volume overload. - CXR showing mild volume overload and cardiomegaly - Given a dose of levaquin in the ED, will hold for now given no clear source of infection - NSS at 80mL/hr - Trop with mild elevation initially has trended downward - Lyme IgG positive, await complete panel results - B12 & folate normal Paroxysmal Afib: monitor on tele - Continue xarelto although given pt's recent hx, anticoagulation may not be a good option for pt - pt was supposed to wear a 30 day holter monitor as an outpatient from last admit but did not get one. HTN - Cont metoprolol tartrate 25 mg BID- IV hydralazine has been given twice since overnight. BP still elevated in the 180s, may consider adding on another agent if remains elevated overnight. - heart healthy diet HOWIE - Cr. 1.3 at time of admission, was normal on last admission 1 month ago, now 0.96 - NSS at 80mL/hr can be stopped Hypokalemia - Replaced with IV this am, follow PRP COPD: continue home meds Hyperlipidemia: - Cont statin therapy Chronic Tobacco use - nicotine patch= typically smokes a little less than 1 ppd. Code status: Uncertain code status, this will need clarified with family DVT ppx: Xarelto Disposition: From home, lives alone - PT/OT for possible placement
[2017-07-18] MEDS: MULTIVITAMIN TAB PO SCH (09:19)
[2017-07-18] MEDS: METOPROLOL TARTRATE 25 MG TAB PO SCH ×2 (09:20→19:35)
[2017-07-18] MEDS: HEPARIN SOD 5000 UNIT/0.5 ML CARP SC SCH ×2 (09:21→20:51)
[2017-07-18] MEDS: POTASSIUM CHLR 10 MEQ / WTR 10 MEQ in PREMIXED WATER 100 ML IV SCH ×4 (09:45→12:27)
[2017-07-18] MEDS: SODIUM CHLORIDE 0.9% 1000ML 1,000 ML IV SCH (09:45)
--- NOTE | 2017-07-18 09:51 | Clinical Documentation Query ---
ANSLEY Phelps : CLINICAL DOCUMENTATION QUERY Patient is an 87 year old female admitted with an "AMS" after being found lying face down at home. Documentation includes "altered mental status". This is the hallmark symptom of encephalopathy. As entertained etiologies have included dehydration and HOWIE, consider documentation as suggested below to capture a clinical diagnosis associated with these findings. In your clinical opinion is this patient being managed for: ( x ) Encephalopathy, possibly secondary to dehydration and associated HOWIE ( ) Other explanation of clinical findings (Please Explain) ( ) Unable to determine (Please Define) ( ) Need to Discuss The medical record reflects the following clinical findings, treatment, and risk factors. Clinical Indicators: As above Treatment: CT head, telemetry, UA, chemistries Risk Factors: Age, dehydration, HOWIE Please clarify and document your clinical opinion in the progress notes and discharge summary. Terms such as "probable", "suspected", "likely", "questionable", "possible", or "still to be ruled out" are acceptable. IF IN AGREEMENT, YOU MUST DOCUMENT ABOVE DIAGNOSTIC STATEMENT IN DAILY PROGRESS NOTES AND DISCHARGE SUMMARY. This document is not part of the patient's record. Thank You, Mir Thomas, RN [phone]
[2017-07-18] MEDS ORDERED: POTASSIUM CHLORIDE 20 MEQ TABCR PO ONE (14:30)
[2017-07-18] MEDS ORDERED: RIVAROXABAN TAB 15 MG TAB PO SCH (16:45)
[2017-07-18 18:20] LABS: BLOOD UREA NITROGEN 20 mg/dl (7-18); BUN/CREATININE RATIO 19.8 (10-20); CARBON DIOXIDE 27 mmol/L (21-32); CHLORIDE 104 mmol/L (98-107); GLUCOSE 73 mg/dl (70-99); MAGNESIUM 1.9 mg/dl (1.8-2.4); PHOSPHORUS 2.4 mg/dl (2.5-4.9); SODIUM 138 mmol/L (136-145)
[2017-07-18] MEDS ORDERED: ENALAPRILAT IV 2.5 MG in DEXTROSE 5% 25ML 25 ML IV ONE (18:40)
[2017-07-18 19:40] LABS: POTASSIUM 4.4 mmol/L (3.5-5.1)
[2017-07-18] MEDS: ATORVASTATIN 20 MG TAB PO SCH (20:50)
[2017-07-18] MEDS ORDERED: HydrALAZINE HCL 20 MG/ML VIAL IV. STA (21:02)
[2017-07-18] MEDS ORDERED: LABETALOL HCL 100 MG TAB PO ONE (21:15)
[2017-07-18] MEDS ORDERED: NURSING VERBAL MED ORDER ONE (21:30)
[2017-07-19] VITALS (11 sets, daily range): BP systolic 112–167; BP diastolic 64–87; PULSE 53–136; TEMP 36.2–36.8; O2SAT 95–97
[2017-07-19] MEDS: METOPROLOL TARTRATE 25 MG TAB PO SCH ×2 (06:30→20:30)
--- NOTE | 2017-07-19 06:51 | DIAGNOSTIC IMAGING REPORT ---
MRI OF THE CERVICAL SPINE WITHOUT CONTRAST CLINICAL HISTORY: Possible rotatory subluxation of C1 on C2. COMPARISON: CT of the cervical spine July 17, 2017. TECHNIQUE: Utilizing a 1.5 Jyoti magnet and dedicated coil, multiplanar, multiecho imaging of the cervical spine was performed without IV contrast. FINDINGS: Alignment on this examination is anatomic. Apparent rotatory subluxation of C1-C2 on CT of July 17, 2017 is no longer visualized. Craniocervical junction is intact. Cervical cord signal and caliber are normal. This study is mildly compromised by motion artifact. 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 There is also small vessel disease within the ryley. No intracanalicular mass or fluid collection is present. There is no prevertebral edema. There is no MRI evidence of ligamentous injury. There is a small amount of fluid within the lateral facet joints at the C1-C2 articulation. This is nonspecific. No acute cervical spine fracture is identified. C2-C3: The central canal is patent. Neural foramen are suboptimal assessed. There are suspected mild right neural foraminal stenosis. C3-C4: There is mild to moderate central canal narrowing due to posterior disc osteophyte complex. Facet arthrosis is present. There is moderate right and severe left neural foraminal stenosis. C4-C5: There is disc space narrowing with disc osteophyte complex. There is mild narrowing of the central canal and severe narrowing of the right neural foramen. C5-C6: There is disc space narrowing. There is mild narrowing of the central canal. Suspected severe bilateral neural foraminal stenosis is present. C6-C7: Central canal is patent. There is moderate left neural foraminal stenosis C7-T1: Central canal and neural foramen are patent. IMPRESSION: 1. No evidence of ligamentous injury within the cervical spine by MRI. No prevertebral edema. Anatomic alignment of cervical spine on this exam. 2. Normal cervical cord signal and caliber. 3. Small amount of fluid within the bilateral lateral facet joints at the C1-C2 articulation which is a nonspecific finding. 4. 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 Electronically signed by: Mahin Moralez M.D. 07/19/2017 6:49 AM Dictated Date/Time: 07/19/2017 6:38 AM
[2017-07-19 07:10] LABS: BUN/CREATININE RATIO 19.1 (10-20); CALCIUM 8.6 mg/dl (8.5-10.1); CREATININE 1.1 mg/dl (0.60-1.20); MAGNESIUM 1.8 mg/dl (1.8-2.4); PHOSPHORUS 2.6 mg/dl (2.5-4.9); POTASSIUM 3.8 mmol/L (3.5-5.1)
--- NOTE | 2017-07-19 08:12 | Orthopedic Consultation ---
Orthopedic Consultation Date of Consultation: Jul 19, 2017. Attending Physician: Azam Blanton MD, PhD Reason for Consultation: Questionable cervical abnormality on CT scan of C1-C2 History of Present Illness Alma is an 87-year-old female that we are asked to see in consultation due to abnormal CT scan. She is a difficult historian. Per reports she was found by family member lying face down in her home. To me she denies any falls. She Cannot Recall this event. She reports no neck pain. She reports no upper or lower extremity pain, with paresthesias, weakness. She reports at home she ambulates with a cane inside her home and a walker outside. Past Medical/Surgical History Medical Problems: (1) Acute CVA (cerebrovascular accident) Status: Acute (2) Ambulatory dysfunction Status: Acute (3) Elevated troponin Status: Acute (4) Frequent falls Status: Acute (5) Generalized weakness Status: Acute (6) Head injury Status: Acute (7) Hypokalemia Status: Acute (8) Scabies Status: Acute (9) Scalp laceration Status: Acute Family History Patient reports no known family medical history. Social History Smoking Status: Current Every Day Smoker Alcohol Use: denies but uncertain about pt's mentation Drug Use: none Marital Status: Housing Status: lives alone Occupation Status: retired Allergies Coded Allergies: Morphine (Verified Allergy, Unknown, hallucinations, 06/19/17) Home Medications Scheduled Atorvastatin (Atorvastatin Calcium), 20 MG PO HS Metoprolol Tartrate (Lopressor), 25 MG PO BID Multivitamin (Multivitamin), 1 TAB PO DAILY Rivaroxaban (Xarelto), 15 MG PO QDD Scheduled PRN Ipratropium-Albuterol (Combivent Respimat), 1 PUFFS INH QID PRN for cough/wheeze Current Inpatient Medications Current Inpatient Medications Medications (Trade) Dose Ordered Sig/Paco Route Start Time Stop Time Status Last Admin Dose Admin Acetaminophen (Tylenol Tab) 650 mg Q4H PRN PO 07/17/17 18:30 08/16/17 18:29 Magnesium Hydroxide (Milk Of Magnesia Susp) 30 ml Q12H PRN PO 07/17/17 18:30 08/16/17 18:29 Ondansetron HCl (Zofran Inj) 4 mg Q6H PRN IV 07/17/17 18:30 08/16/17 18:29 Atorvastatin Calcium (Lipitor Tab) 20 mg HS PO 07/17/17 21:00 08/16/17 20:59 07/18/17 20:50 20 MG Albuterol/ Ipratropium (Combivent Respimat Inh) 1 puffs QID PRN INH 07/17/17 18:30 08/16/17 18:29 Metoprolol Tartrate (Lopressor Tab) 25 mg BID PO 07/17/17 21:00 08/16/17 20:59 07/19/17 06:30 25 MG Multivitamins (Multivitamin Tab) 1 tab DAILY PO 07/18/17 09:00 08/17/17 08:59 07/18/17 09:19 1 TAB Nicotine (Nicoderm Cq 21MG Patch) 1 patch QAM PRN TD 07/18/17 09:00 08/17/17 08:59 Miscellaneous (Remove Nicoderm Patch) 1 ea HS N/A 07/18/17 21:00 08/17/17 20:59 Heparin Sodium (Porcine) (Heparin Sq 5000 Unit/0.5ml) 5,000 unit Q12H SC 07/17/17 21:00 08/16/17 20:59 07/18/17 20:51 5,000 UNIT Lisinopril (Zestril Tab) 2.5 mg QAM PO 07/19/17 09:00 08/18/17 08:59 Physical Exam Date Time Temp Pulse Resp B/P (MAP) Pulse Ox O2 Delivery O2 Flow Rate FiO2 07/19/17 07:10 36.2 76 24 119/80 (93) 97 Room Air 07/19/17 06:28 123 146/87 (106) 96 Room Air 07/19/17 04:13 36.4 56 20 149/68 (95) 97 Room Air 07/19/17 04:02 Room Air 07/19/17 01:10 59 16 96 Room Air 07/19/17 00:47 20 167/71 (103) 96 Room Air 07/19/17 00:00 Room Air 07/18/17 23:54 36.5 59 20 176/90 (118) 95 Room Air 07/18/17 22:06 60 156/56 (89) 07/18/17 20:48 227/72 (123) 07/18/17 20:00 Nasal Cannula 2.0 07/18/17 19:28 37.0 58 20 202/87 (125) 99 Nasal Cannula 3.0 07/18/17 19:03 198/73 (114) 07/18/17 16:37 Room Air 07/18/17 15:10 36.5 54 16 182/73 (109) 95 Room Air 07/18/17 14:58 Room Air 07/18/17 12:14 36.9 56 21 182/72 (108) 100 Nasal Cannula 4.0 07/18/17 12:00 Room Air Patient sitting in bed eating breakfast. She is in no obvious distress. She has great range of motion with both cervical extension and flexion as well as [id number]-uw-[id number] rotation. This does not reproduce pain. She is nontender to palpation throughout the cervical spine. Strength is intact bilateral upper and lower extremities. No evidence of upper motor neuron signs. General Appearance: no apparent distress Head: normocephalic Eyes: normal inspection ENT: hearing grossly normal Neck: supple Respiratory/Chest: no respiratory distress Cardiovascular: regular rate, rhythm Abdomen/GI: soft Back: normal inspection Extremities/Musculoskelatal: normal inspection Neurologic/Psych: no motor/sensory deficits Skin: normal color, warm/dry Lymphatic: no adenopathy Laboratory Results Last 24 Hours Test 07/18/17 17:16 07/18/17 17:27 07/19/17 06:00 Creatine Kinase MB Ratio Sodium Level 138 mmol/L 138 mmol/L Potassium Level 4.4 mmol/L 3.8 mmol/L Chloride Level 104 mmol/L 105 mmol/L Carbon Dioxide Level 27 mmol/L 23 mmol/L Anion Gap 6.0 mmol/L 10.0 mmol/L Blood Urea Nitrogen 20 mg/dl 21 mg/dl Creatinine 1.00 mg/dl 1.10 mg/dl Est Creatinine Clear Calc Drug Dose 27.1 ml/min 24.6 ml/min Estimated GFR () 58.7 52.3 Estimated GFR (Non- 50.6 45.1 BUN/Creatinine Ratio 19.8 19.1 Random Glucose 73 mg/dl 88 mg/dl Calcium Level 9.0 mg/dl 8.6 mg/dl Phosphorus Level 2.4 mg/dl 2.6 mg/dl Magnesium Level 1.9 mg/dl 1.8 mg/dl Creatine Kinase MB 2.2 ng/ml Troponin I 0.092 ng/ml Patient Name: LORELEI CORTEZ Unit Number: [id number] Dictated: 07/19/17637 Transcribed: 07/19/17637 Printed Date/Time: [~ rep prt dt]/[~ rep prt tm] [~ rep ct labl] - [~ rep ct ivnm] [facility] Radiology Department [place] [id number] Dictated: 07/19/17637 Transcribed: 07/19/17637 Printed Date/Time: [~ rep prt dt]/[~ rep prt tm] [~ rep ct labl] - [~ rep ct ivnm] Patient: LORELEI CORTEZ Address1: [address] [place] [address] Rec: [id number] Address2: Acct ID: [id number] [facility] Zip: [place] [address] Date: 1930 Sex: F Room/Bed: [facility] Ref Phy: Hannah Quintana C.R.N.P SC: C.2T Att Phy: Azam Blanton MD, PhD Report #: [id number] Mary Jo Phy: Hannah Quintana C.R.N.P Test: CVWO Admit Phy: Caroline Mojica DO [employer] Wind[employer] Assembler: KOKI Interpreting Phy: Mahin Moralez MD Diagnosis: ALTERED MENTAL STATUS Ordering Phy: Azam Blanton MD, PhD Service Date: 07/18/17 Admit Date: 07/17/1710/08/17 MNE: [id number] CONF: DICTATED BY: Mahin Moralez MD]] CC: Azam Blanton MD, PhD Hannah Quintana C.R.N.P Endcc: [~ rep ct add3]] MRI OF THE CERVICAL SPINE WITHOUT CONTRAST CLINICAL HISTORY: Possible rotatory subluxation of C1 on C2. COMPARISON: CT of the cervical spine July 17, 2017. TECHNIQUE: Utilizing a 1.5 Jyoti magnet and dedicated coil, multiplanar, multiecho imaging of the cervical spine was performed without IV contrast. FINDINGS: Alignment on this examination is anatomic. Apparent rotatory subluxation of C1-C2 on CT of July 17, 2017 is no longer visualized. Craniocervical junction is intact. Cervical cord signal and caliber are normal. This study is mildly compromised by motion artifact. 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 There is also small vessel disease within the ryley. No intracanalicular mass or fluid collection is present. There is no prevertebral edema. There is no MRI evidence of ligamentous injury. There is a small amount of fluid within the lateral facet joints at the C1-C2 articulation. This is nonspecific. No acute cervical spine fracture is identified. C2-C3: The central canal is patent. Neural foramen are suboptimal assessed. There are suspected mild right neural foraminal stenosis. C3-C4: There is mild to moderate central canal narrowing due to posterior disc osteophyte complex. Facet arthrosis is present. There is moderate right and severe left neural foraminal stenosis. C4-C5: There is disc space narrowing with disc osteophyte complex. There is mild narrowing of the central canal and severe narrowing of the right neural foramen. C5-C6: There is disc space narrowing. There is mild narrowing of the central canal. Suspected severe bilateral neural foraminal stenosis is present. C6-C7: Central canal is patent. There is moderate left neural foraminal stenosis C7-T1: Central canal and neural foramen are patent. IMPRESSION: 1. No evidence of ligamentous injury within the cervical spine by MRI. No prevertebral edema. Anatomic alignment of cervical spine on this exam. 2. Normal cervical cord signal and caliber. 3. Small amount of fluid within the bilateral lateral facet joints at the C1-C2 articulation which is a nonspecific finding. 4. 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 Electronically signed by: Mahin Moralez M.D. 07/19/2017 6:49 AM Dictated Date/Time: 07/19/2017 6:38 AM The status of this report is Signed. Draft = Not yet reviewed or approved by Radiologist. Signed = Reviewed and approved by Radiologist. <AttendingPhy>Azam Blanton MD, PhD</AttendingPhy> <FamilyPhy>Hannah Quintana, Refugio.R.N.P</FamilyPhy> <PrimaryPhy>Hannah Quintana C.R.N.P</PrimaryPhy> <UnitNumber >[id number]</UnitNumber> <VisitNumber>[id number]</VisitNumber> <PatientName> LORELEI CORTEZ</PatientName> <DateOfBirth>1930</DateOfBirth> <Location>C.2T</ Location> <ServiceDate>07/17/17</ServiceDate> <MNE>ESINDI</MNE> <OrderingPhy>Azam Blanton MD, PhD</OrderingPhy> <OrderingPhyMNE>f rep ord dr short</ OrderingPhyMNE> <DictatingPhyMNE>f rep dict dr short</DictatingPhyMNE> <CCListMNE> f rep ct mne</CCListMNE> <AdmittingPhyMNE>f pt admit dr short</AdmittingPhyMNE> < AttendingPhyMNE>f pt attend dr short</AttendingPhyMNE> <ConsultingPhyMNE>f pt consult dr short</ConsultingPhyMNE> <FamilyPhyMNE>f pt fam dr short</FamilyPhyMNE> <OtherPhyMNE>f pt other dr short</OtherPhyMNE> < PrimaryPhyMNE>f pt prim care dr short</PrimaryPhyMNE> <ReferringPhyMNE>f pt referring dr short</ReferringPhyMNE> Patient Name: LORELEI CORTEZ Unit Number: [id number] Dictated: 07/17/171718 Transcribed: 07/17/171718 PBS Printed Date/Time: [~ rep prt dt]/[~ rep prt tm] [~ rep ct labl] - [~ rep ct ivnm] [facility] [place] [place] [address] Dictated: 07/17/171718 Transcribed: 07/17/171718 PBS Printed Date/Time: [~ rep prt dt]/[~ rep prt tm] [~ rep ct labl] - [~ rep ct ivnm] Patient: LORELEI CORTEZ Address1: [address] [facility] Rec: [id number] Address2: Acct ID: [id number] [facility] Zip: [place] [address] Date: 1930 Sex: F Room/Bed: Ref Phy: Hannah Quintana C.R.N.P SC: FLORECITA Att Phy: Report #: [id number] Mary Jo Phy: Hannah Quintana C.R.N.P Test: CSWO Admit Phy: [employer] Assembler: AIME Interpreting Phy: Ángel Jaime MD Diagnosis: STROKE SX Ordering Phy: Alonso Rose DO Service Date: 07/17/17 Admit Date: 07/17/17 MNE: [id number] CONF: DICTATED BY: Ángel Jaime MD]] CC: Alonso Rose, Hannah Rush C.R.N.P Endcc: [~ rep ct add3]] CERVICAL SPINE W/O CLINICAL HISTORY: 87 years-old Female presenting with ams . TECHNIQUE: Multidetector CT of the cervical spine was performed without the use of intravenous contrast. IV contrast: None. A dose lowering technique was used consistent with the principles of ALARA (as low as reasonably achievable). COMPARISON: None. CT DOSE (mGy.cm): The estimated cumulative dose is 375.83 mGycm. FINDINGS: Program Director Scouting topogram: Unremarkable. Normal cervical lordosis. Minimal retrolisthesis of C3 on C4 with the remaining vertebral bodies normal in height and alignment. Intervertebral disc height loss at nearly every level secondary to diffuse disc osteophyte complexes. Slight rotatory subluxation of C1 on C2 without transverse displacement of the lateral masses of C1 on C2. No acute fracture. Mild osseous neural foraminal narrowing to varying degrees at several levels secondary to disc osteophyte complexes and uncovertebral hypertrophy. No osseous spinal canal narrowing. Paraspinal soft tissues within normal limits. Subcentimeter right thyroid lobe nodule noted. Atherosclerosis of the bilateral carotid bulbs. Interlobular septal thickening noted at the lung apices. IMPRESSION: 1. Rotatory subluxation of C1 on C2 may be positional. Otherwise no evidence of acute osseous injury of the cervical spine. If there is clinical concern for acute ligamentous injury, noncontrast MR of the cervical spine should be obtained. 2. Multilevel degenerative changes. 3. Interlobular septal thickening at the lung apices could indicate volume overload. Electronically signed by: Ángel Jaime M.D. 07/17/2017 5:26 PM Dictated Date/Time: 07/17/2017 5:19 PM The status of this report is Signed. Draft = Not yet reviewed or approved by Radiologist. Signed = Reviewed and approved by Radiologist. <AttendingPhy></AttendingPhy> <FamilyPhy>Hannah Quintana C.R.N.P</FamilyPhy> < PrimaryPhy>Hannah Quintana C.R.N.P</PrimaryPhy> <UnitNumber>[id number]</ UnitNumber> <VisitNumber>[id number]</VisitNumber> <PatientName>LORELEI CORTEZ</ PatientName> <DateOfBirth>1930</DateOfBirth> <Location>C.EDB</Location> < ServiceDate>07/17/17</ServiceDate> <MNE>ESINDI</MNE> <OrderingPhy>Alonso Rose DO</OrderingPhy> <OrderingPhyMNE>f rep ord dr short</OrderingPhyMNE> < DictatingPhyMNE>f rep dict dr short</DictatingPhyMNE> <CCListMNE>f rep ct mne</ CCListMNE> <AdmittingPhyMNE>f pt admit dr short</AdmittingPhyMNE> <AttendingPhyMNE >f pt attend dr short</AttendingPhyMNE> <ConsultingPhyMNE>f pt consult dr short</ConsultingPhyMNE> <FamilyPhyMNE>f pt fam dr short</FamilyPhyMNE> <OtherPhyMNE>f pt other dr hsort</OtherPhyMNE> < PrimaryPhyMNE>f pt prim care dr short</PrimaryPhyMNE> <ReferringPhyMNE>f pt referring dr short</ReferringPhyMNE> Assessment & Plan Assessment: Cervical spinal stenosis. No acute injury cervical spine injury Plan: DC cervical collar. Neck is stable. She has no pain. No follow-up needed. Activity as tolerated. Thank you for this consult-- will sign off
--- NOTE | 2017-07-19 08:24 | Hospitalist Progress Note ---
Hospitalist Progress Note Date of Service Jul 19, 2017. Subjective Pt evaluation today including: conversation w/ patient, physical exam, chart review, lab review, review of studies, conversation w/ otm consultant Pain: None PO Intake: Good Voiding: no voiding problems The patient was seen and examined this morning. Pt reports doing well this morning. Overnight on tele she broke into afib with RVR around 0600, although is asymptomatic. She denies any palpitations, flutter, headache, dizziness or lightheadedness. Overnight she was administered her normally scheduled metoprolol 25 mg PO tab early. Discussion was held regarding code status and she wants Full code. She also does not want to go to rehab and states she does better by herself. Constitutional: No fever, No chills, No sweats Eyes: No redness, No diplopia ENT: No nasal symptoms, No trouble swallowing Respiratory: + cough (dry, occascional), No shortness of breath Cardiovascular: No chest pain, No orthopnea, No edema, No palpitations Abdomen: No pain, No nausea, No vomiting, No diarrhea, No constipation Musculoskeletal: No joint pain, No swelling Neurologic: No weakness, No numbness/tingling Psychiatric: No depression symptoms Skin: No rash, No itch Objective Vital Signs Date Time Temp Pulse Resp B/P (MAP) Pulse Ox O2 Delivery O2 Flow Rate FiO2 07/19/17 07:10 36.2 76 24 119/80 (93) 97 Room Air 07/19/17 06:28 123 146/87 (106) 96 Room Air 07/19/17 04:13 36.4 56 20 149/68 (95) 97 Room Air 07/19/17 04:02 Room Air 07/19/17 01:10 59 16 96 Room Air 07/19/17 00:47 20 167/71 (103) 96 Room Air 07/19/17 00:00 Room Air 07/18/17 23:54 36.5 59 20 176/90 (118) 95 Room Air 07/18/17 22:06 60 156/56 (89) 07/18/17 20:48 227/72 (123) 07/18/17 20:00 Nasal Cannula 2.0 07/18/17 19:28 37.0 58 20 202/87 (125) 99 Nasal Cannula 3.0 07/18/17 19:03 198/73 (114) 07/18/17 16:37 Room Air 07/18/17 15:10 36.5 54 16 182/73 (109) 95 Room Air 07/18/17 14:58 Room Air 07/18/17 12:14 36.9 56 21 182/72 (108) 100 Nasal Cannula 4.0 07/18/17 12:00 Room Air Physical Exam Notes: General Appearance: WD/WN, no apparent distress, + thin Eyes: PERRL, EOMI ENT: hearing grossly normal, pharynx normal Neck: supple, + pertinent finding (J collar OFF) Respiratory/Chest: no accessory muscle use, + pertinent finding (on room air, slightly diminished breath sounds throughout although better today, no adventitious breath sounds) Cardiovascular: regular rate, rhythm, no JVD, no murmur Abdomen: normal bowel sounds, non tender, soft Extremities: non-tender, no pedal edema, no calf tenderness Neurologic/Psychiatric: alert, normal mood/affect, oriented x 3, follow commands, cannot name the president this morning, Laboratory Results Last 24 Hours Test 07/18/17 17:16 07/18/17 17:27 07/19/17 06:00 Creatine Kinase MB Ratio Sodium Level 138 mmol/L 138 mmol/L Potassium Level 4.4 mmol/L 3.8 mmol/L Chloride Level 104 mmol/L 105 mmol/L Carbon Dioxide Level 27 mmol/L 23 mmol/L Anion Gap 6.0 mmol/L 10.0 mmol/L Blood Urea Nitrogen 20 mg/dl 21 mg/dl Creatinine 1.00 mg/dl 1.10 mg/dl Est Creatinine Clear Calc Drug Dose 27.1 ml/min 24.6 ml/min Estimated GFR () 58.7 52.3 Estimated GFR (Non- 50.6 45.1 BUN/Creatinine Ratio 19.8 19.1 Random Glucose 73 mg/dl 88 mg/dl Calcium Level 9.0 mg/dl 8.6 mg/dl Phosphorus Level 2.4 mg/dl 2.6 mg/dl Magnesium Level 1.9 mg/dl 1.8 mg/dl Creatine Kinase MB 2.2 ng/ml Troponin I 0.092 ng/ml Assessment and Plan 87 y/o F who was admitted on 07/17 with AMS AMS likely in the setting of Afib with RVR, seen on lead ekg early 07/19 - Continue on anticoagulation with afib in place, metoprolol 25 mg given early, discussed with cardiology and will increase metoprolol to 50 mg BID per their recs. We may need to choose a different rate controlling agent if her pulse drops too low today. - continue monitor of tele - CT of the head reviewed --- MRI- obtained and cleared for J-collar removal. - CXR showing mild volume overload and cardiomegaly - appears euvolemic today - Given a dose of levaquin in the ED, will hold for now given no clear source of infection - Stop fluids with as she is tolerating Po intake - Trop with mild elevation initially has trended downward - Lyme IgG positive, await complete panel results - B12 & folate normal - Continue xarelto - pt likely fell from afib with rvr burst at home - discussed with cardiology as above. - pt was supposed to wear a 30 day holter monitor as an outpatient from last admit but did not get one. HTN - Inc metoprolol tartrate 50 mg BID- BP stable - noted that her pulse when in NSR she is bradycardic. HOWIE - Cr. 1.3 at time of admission, was normal on last admission 1 month ago, now 0.96 - NSS at 80mL/hr can be stopped Hypokalemia - Replaced with IV this am, follow PRP COPD: continue home meds Hyperlipidemia: - Cont statin therapy Chronic Tobacco use - nicotine patch= typically smokes a little less than 1 ppd. Code status: Uncertain code status, this will need clarified with family DVT ppx: Xarelto Disposition: From home, lives alone - PT/OT for possible placement
[2017-07-19] MEDS: MULTIVITAMIN TAB PO SCH (08:34)
[2017-07-19] MEDS: HEPARIN SOD 5000 UNIT/0.5 ML CARP SC SCH (08:51)
[2017-07-19] MEDS ORDERED: METOPROLOL TARTRATE 25 MG TAB PO ONE (09:00)
[2017-07-19] MEDS: LISINOPRIL 2.5 MG TAB PO SCH (09:00)
[2017-07-19] MEDS ORDERED: DIGOXIN IV 250 MCG in SYRINGE 9 ML IV SCH (10:00)
--- NOTE | 2017-07-19 10:15 | Cardiology Consultation ---
Cardiology Consultation Date of Consultation: Jul 19, 2017. Requesting Physician: Dr. Blanton Attending Physician: Dr. Keane Reason for Consultation: Elevated troponin, Atrial fibrillation with RVR Pt evaluation today including: conversation w/ patient, physical exam, chart review, lab review, review of studies, review of inpatient medication list, conversation w/ attending History of Present Illness Mrs. Rogers is an 87 year old female with a medical history significant for paroxysmal atrial fibrillation, hypertension, dyslipidemia, history of CVA and COPD. She was admitted to [facility] on 07/17/17 after she was found lying face down on the floor by her son. The patient has no recollection of the event. Upon admission her electrocardiogram demonstrated sinus bradycardia with T wave abnormality. Her troponin I was mildly elevated at 0.187. This morning she was noted to be in atrial fibrillation with rapid ventricular response. She was admitted to [facility] on 06/19/17 with frequent falls and rhabdomyolysis. During that admission it was felt she had new onset paroxysmal atrial fibrillation on monitoring and was started on Xarelto 15 mg daily. She has a history of CVA in February 2017. An echocardiogram performed during that admission demonstrated normal LV size with hyperdynamic LV systolic function (EF >70%), no regional wall motion abnormalities, no LVH, type I diastolic dysfunction, aortic valve sclerosis without significant stenosis, mild AR, mild MR and normal estimated RV systolic pressure. The patient was seen at the bedside today, she is unaccompanied. She has no acute complaints. Again she cannot recall the events that lead to her hospital admission. She lives alone but her son lives on the same property and according to her checks on her frequently. She is typically fairly independent and is able to perform her activities of daily living with little assistance. She denies having exertional chest pain or limiting dyspnea. She denies ever experiencing palpitations. She denies history of presyncope or sycnope. She denies history of coronary artery disease. She does not recall being told she has atrial fibrillation but does state that she has been taking her Xarelto as an outpatient. She currently denies palpitations, chest pain, dyspnea, orthopnea , PND, peripheral edema, lightheadedness, presyncope or syncope. She denies abnormal bleeding including melena, hematochezia or hematuria. The remainder of her review of systems is unremarkable. Family History Patient reports no known family medical history. Social History Smoking Status: Current Every Day Smoker History of Alcohol Use: No Smokes 1/2 pack per week. She is a . She lives alone. She has 4 children. Allergies Coded Allergies: Morphine (Verified Allergy, Unknown, hallucinations, 06/19/17) Medications Current Inpatient Medications Medications (Trade) Dose Ordered Sig/Paco Route Start Time Stop Time Status Last Admin Dose Admin Acetaminophen (Tylenol Tab) 650 mg Q4H PRN PO 07/17/17 18:30 08/16/17 18:29 Magnesium Hydroxide (Milk Of Magnesia Susp) 30 ml Q12H PRN PO 07/17/17 18:30 08/16/17 18:29 Ondansetron HCl (Zofran Inj) 4 mg Q6H PRN IV 07/17/17 18:30 08/16/17 18:29 Atorvastatin Calcium (Lipitor Tab) 20 mg HS PO 07/17/17 21:00 08/16/17 20:59 07/18/17 20:50 20 MG Albuterol/ Ipratropium (Combivent Respimat Inh) 1 puffs QID PRN INH 07/17/17 18:30 08/16/17 18:29 Multivitamins (Multivitamin Tab) 1 tab DAILY PO 07/18/17 09:00 08/17/17 08:59 07/19/17 08:34 1 TAB Nicotine (Nicoderm Cq 21MG Patch) 1 patch QAM PRN TD 07/18/17 09:00 08/17/17 08:59 Miscellaneous (Remove Nicoderm Patch) 1 ea HS N/A 07/18/17 21:00 08/17/17 20:59 Heparin Sodium (Porcine) (Heparin Sq 5000 Unit/0.5ml) 5,000 unit Q12H SC 07/17/17 21:00 08/16/17 20:59 07/19/17 08:51 5,000 UNIT Lisinopril (Zestril Tab) 2.5 mg QAM PO 07/19/17 09:00 08/18/17 08:59 Rivaroxaban (Xarelto Tab) 15 mg DAILY PO 07/19/17 09:00 08/18/17 08:59 UNV Metoprolol Tartrate (Lopressor Tab) 50 mg BID PO 07/19/17 21:00 08/16/17 20:59 Physical Exam Vital Signs Past 12 Hours Date Time Temp Pulse Resp B/P (MAP) Pulse Ox O2 Delivery O2 Flow Rate FiO2 07/19/17 09:18 136 112/64 (80) 07/19/17 07:10 36.2 133 24 119/80 (93) 97 Room Air 07/19/17 06:28 123 146/87 (106) 96 Room Air 07/19/17 04:13 36.4 56 20 149/68 (95) 97 Room Air 07/19/17 04:02 Room Air 07/19/17 01:10 59 16 96 Room Air 07/19/17 00:47 20 167/71 (103) 96 Room Air 07/19/17 00:00 Room Air 07/18/17 23:54 36.5 59 20 176/90 (118) 95 Room Air 07/18/17 22:06 60 156/56 (89) General: No acute distress. Alert and oriented. HEENT: Head is normal. PERRLA. EOMI. Sclera nonicteric. Ears, nose and throat unremarkable. Neck: Supple. No JVD or carotid bruit. Lungs: Decreased breath sounds throughout but clear without rales, rhonchi or wheezes. Cardiac: Irregularly irregular rhythm with tachycardic rate. S1 and S2 normal. No appreciable murmur, gallop or rub. Abdomen: Soft and nontender. Bowel sounds normal. No mass or organomegaly. No abdominal bruit. Extremities: No cyanosis, clubbing or peripheral edema. Peripheral pulses intact. Skin: No rash or abnormal lesions. Normal turgor. Neurologic: Patient seems somewhat confused at times but for the most part carries on appropriate conversation. Data Laboratory Results: Last 24 Hours Test 07/18/17 17:16 07/18/17 17:27 07/19/17 06:00 Creatine Kinase MB Ratio Sodium Level 138 mmol/L 138 mmol/L Potassium Level 4.4 mmol/L 3.8 mmol/L Chloride Level 104 mmol/L 105 mmol/L Carbon Dioxide Level 27 mmol/L 23 mmol/L Anion Gap 6.0 mmol/L 10.0 mmol/L Blood Urea Nitrogen 20 mg/dl 21 mg/dl Creatinine 1.00 mg/dl 1.10 mg/dl Est Creatinine Clear Calc Drug Dose 27.1 ml/min 24.6 ml/min Estimated GFR () 58.7 52.3 Estimated GFR (Non- 50.6 45.1 BUN/Creatinine Ratio 19.8 19.1 Random Glucose 73 mg/dl 88 mg/dl Calcium Level 9.0 mg/dl 8.6 mg/dl Phosphorus Level 2.4 mg/dl 2.6 mg/dl Magnesium Level 1.9 mg/dl 1.8 mg/dl Creatine Kinase MB 2.2 ng/ml Troponin I 0.092 ng/ml Imaging: CXR 07/17/17: mild cardiomegaly with prominence of pulmonary vasculature. Electrocardiograms reviewed: ECG 07/17/17: sinus bradycardia at 55 bpm, LVH with repolarization abnormality ECG 07/18/17: sinus bradycardia at 59 bpm, LVH, ST and T wave abnormality consider anterolateral ischemia vs LVH ECG 07/19/17: atrial fibrillation with rapid ventricular response at 133 bpm, ST -T wave abnormality Telemetry reviewed: Atrial fibrillation with RVR since around 6 am 07/19/17. No pauses. Assessment & Plan Discussed with Dr. Keane. 1. Paroxysmal atrial fibrillation with RVR: Patient was admitted on 07/17/17 after being found on the floor by her son. The patient does not recall the events leading to her admission. This morning she was noted to be in atrial fibrillation with rapid ventricular response. She was diagnosed with paroxysmal atrial fibrillation in June 2017 during a hospitalization for fall and rhabdomyolysis. She has been anticoagulated since then with Xarelto 15 mg daily. She takes metoprolol tartrate 25 mg BID for rate control. She remains in atrial fibrillation with RVR and is currently asymptomatic. Recommend increasing metoprolol tartrate to 50 mg BID and starting digoxin for improved rate control. Will give loading dose of digoxin today and then start 0.125 mg MWF. She will likely convert back to sinus rhythm on her own. Of note she was in sinus bradycardia upon admission and if the above treatment results in significant bradycardia pacemaker implantation may be the only option to allow for adequate rate control. Continue anticoagulation for stroke risk reduction. 2. Elevated troponin: Troponin I was mildly elevated at 0.187 upon admission and is trending down. This likely represents demand ischemia rather than acute coronary syndrome. She is currently chest pain free. She does have evidence of ST/T wave abnormality on electrocardiogram which was present during previous hospitalizations but is more pronounced today, likely due to her tachycardia. An echocardiogram in February 2017 showed hyperdynamic LV systolic function without wall motion abnormalities or significant valvular disease. Thank you for the consultation, we will continue to follow. Attending note. Pt seen and examined. Reviewed plan and findings. Agree with above. J Carlos Keane MD
[2017-07-19] MEDS ORDERED: DIGOXIN 0.25 MG TAB PO SCH (16:00)
[2017-07-19] MEDS: RIVAROXABAN TAB 15 MG TAB PO SCH (16:22)
[2017-07-19] MEDS: ATORVASTATIN 20 MG TAB PO SCH (21:09)
[2017-07-20] VITALS (11 sets, daily range): BP systolic 139–189; BP diastolic 62–80; PULSE 49–83; TEMP 36.4–37; O2SAT 95–97
--- NOTE | 2017-07-20 08:36 | Hospitalist Progress Note ---
Hospitalist Progress Note Date of Service Jul 20, 2017. Subjective Pt evaluation today including: conversation w/ patient, physical exam, chart review, lab review, review of studies Pain: None PO Intake: Good Voiding: no voiding problems The patient was seen and examined this morning. Pt reports doing well, no complaints. She thinks we are at her relative Raine's house in [place] - but is oriented to time, date, president. She has been sleeping most of the morning and is just now eating lunch. She reports sleeping well overnight. Additional Comments: Constitutional: No fever, No chills, No sweats Eyes: No redness, No diplopia ENT: No nasal symptoms, No trouble swallowing Respiratory: + cough (dry, occascional), No shortness of breath Cardiovascular: No chest pain, No orthopnea, No edema, No palpitations Abdomen: No pain, No nausea, No vomiting, No diarrhea, No constipation Musculoskeletal: No joint pain, No swelling Neurologic: No weakness, No numbness/tingling Psychiatric: No depression symptoms Skin: No rash, No itch Objective Vital Signs Date Time Temp Pulse Resp B/P (MAP) Pulse Ox O2 Delivery O2 Flow Rate FiO2 07/20/17 07:36 36.4 49 14 176/80 (112) 95 Room Air 07/20/17 05:04 168/62 (97) 07/20/17 04:16 36.6 50 20 189/71 (110) 96 Room Air 07/20/17 04:00 Room Air 07/19/17 23:59 Room Air 07/19/17 23:45 36.8 53 20 163/75 (104) 96 Room Air 07/19/17 20:00 Room Air 07/19/17 19:49 36.6 61 18 149/71 (97) 97 Room Air 07/19/17 16:22 63 07/19/17 16:00 Room Air 07/19/17 15:45 36.7 62 16 167/74 (105) 97 Room Air 07/19/17 12:01 36.6 58 21 97 Room Air 07/19/17 12:00 Room Air 07/19/17 10:44 136 07/19/17 10:41 36.6 136 16 129/74 (92) 95 Room Air 07/19/17 09:18 136 112/64 (80) Physical Exam Notes: General Appearance: WD/WN, no apparent distress, + thin Eyes: PERRL, EOMI ENT: hearing grossly normal, pharynx normal Neck: supple Respiratory/Chest: no accessory muscle use, + pertinent finding (on room air, slightly diminished breath sounds throughout although better today, no adventitious breath sounds) Cardiovascular: regular rate, rhythm, no JVD, no murmur Abdomen: normal bowel sounds, non tender, soft Extremities: non-tender, no pedal edema, no calf tenderness Neurologic/Psychiatric: alert, normal mood/affect, oriented to date, year and president, not to place, follow commands Laboratory Results Last 24 Hours Test 07/20/17 06:12 Digoxin Level 1.4 ng/ml Assessment and Plan 87 y/o F who was admitted on 07/17 with AMS AMS likely in the setting of Afib with RVR, seen on lead ekg early 07/19 - broke into NSR on 07/19 - waxes and wanes with orientation but overall improved - Continue on anticoagulation with afib in place, metoprolol 50 mg BID along with digoxin 0.125 MWF since loading dose on 07/19 - Trop with mild elevation initially has trended downward - likely was due to demand ischemia - Lyme IgG positive, IgM equivocal - ID consulted for recs - start doxycycline 100 mg BID x 28 days - appreciate recs - Continue xarelto - pt likely fell from afib with rvr burst at home - discussed with cardiology as above. HTN - Inc metoprolol tartrate 50 mg BID- BP stable - noted that her pulse when in NSR she is bradycardic. - Loaded with digoxin, continue as above. HOWIE - resolved - Cr. 1.3 at time of admission, was normal on last admission 1 month ago, now 0.96 - NSS at 80mL/hr can be stopped Hypokalemia - Replaced with IV prn, follow PRP COPD: continue home meds Hyperlipidemia: - Cont statin therapy Chronic Tobacco use - nicotine patch= typically smokes a little less than 1 ppd. Code status: FULL CODE DVT ppx: Xarelto Disposition: Transfer off tele today, From home, lives alone, CM assisting with d/c placement, ?[facility]
--- NOTE | 2017-07-20 08:44 | Cardiology Follow-Up ---
Subjective Date of Service: Jul 20, 2017. Pt evaluation today including: conversation w/ patient, physical exam, lab review, review of inpatient medication list History of Present Illness This morning she is sleepy, a little hard to wake up but once awake appears alert. She has no complaints. Social History Smoking Status: Current Every Day Smoker History of Alcohol Use: No Review of Systems Respiratory: No shortness of breath Cardiac: No chest pain, No palpitations Medications Cardiovascular: Item Value Date Time Digoxin 0.125 mg 07/20/17 1600 (Lanoxin Tab) MoWeFr@1600/PO Metoprolol 50 mg 07/19/17 2100 Tartrate BID/PO (Lopressor Tab) Rivaroxaban 15 mg 07/19/17 1615 (Xarelto Tab) DAILYBD/PO 07/19/17 1622 Lisinopril 2.5 mg 07/19/17 0900 (Zestril Tab) QAM/PO Atorvastatin 20 mg 07/17/17 2100 Calcium HS/PO 07/19/172108 (Lipitor Tab) Objective Vital Signs Past 12 Hours Date Time Temp Pulse Resp B/P (MAP) Pulse Ox O2 Delivery O2 Flow Rate FiO2 07/20/17 07:36 36.4 49 14 176/80 (112) 95 Room Air 07/20/17 05:04 168/62 (97) 07/20/17 04:16 36.6 50 20 189/71 (110) 96 Room Air 07/20/17 04:00 Room Air 07/19/17 23:59 Room Air 07/19/17 23:45 36.8 53 20 163/75 (104) 96 Room Air Last Recorded Weight-Kilograms: 43.500 Physical Exam Constitutional: Level of Distress: NAD Lungs: Auscultation: breath sounds normal Cardiovascular: Heart Auscultation: RRR Extremities: no edema General: No acute distress. Alert and oriented. HEENT: Head is normal. PERRLA. EOMI. Sclera nonicteric. Ears, nose and throat unremarkable. Neck: Supple. No JVD or carotid bruit. Lungs: Decreased breath sounds throughout but clear without rales, rhonchi or wheezes. Cardiac: Irregularly irregular rhythm with tachycardic rate. S1 and S2 normal. No appreciable murmur, gallop or rub. Abdomen: Soft and nontender. Bowel sounds normal. No mass or organomegaly. No abdominal bruit. Extremities: No cyanosis, clubbing or peripheral edema. Peripheral pulses intact. Skin: No rash or abnormal lesions. Normal turgor. Neurologic: Patient seems somewhat confused at times but for the most part carries on appropriate conversation. Data Laboratory Results: Last 24 Hours Test 07/20/17 06:12 Digoxin Level 1.4 ng/ml Imaging: EKG: Telemetry reviewed: Assessment and Plan 1. Paroxysmal atrial fibrillation with RVR: She has been in sinus rhythm since conversion at 11:30 AM on 07/19/2017. Prior to cardioversion or rate was fast but she had just received digoxin. I don't know that we would have adequate control if she goes back into atrial fibrillation but it is hard to tell. I can' t go up on her beta carlos alberto due to resting bradycardia and her digoxin level is good. I would recommend continuing her current medical regimen as well as Xarelto. 2. Elevated troponin: Troponin I was elevated on admission but had a decreasing pattern consistent with demand ischemia. Presumably from rapid atrial fibrillation. I would not pursue further evaluation. 3. Bradycardia: She has sinus bradycardia, in part probably medication related, but I suspect she has sick sinus syndrome as well. I think it is acceptable but will limit our ability to use increasing beta blockade or calcium blockade for rate control during atrial fibrillation. 4. Sick sinus syndrome: She has sick sinus syndrome with sinus bradycardia and atrial fibrillation with a rapid heart rate. This may be difficult to control with medications. One of the other of these rhythms probably explains her presentation. I think she will need long-term monitoring to see if we can document significant tachycardia or bradycardia associated with symptoms, if so she will probably need a pacemaker to allow rate control for her tachycardia. I would not do that now however she may do better on the current medical regimen. Thank you for allowing me to participate in her care.
[2017-07-20] MEDS: METOPROLOL TARTRATE 25 MG TAB PO SCH ×2 (08:56→21:19)
[2017-07-20] MEDS: MULTIVITAMIN TAB PO SCH (08:56)
[2017-07-20] MEDS: LISINOPRIL 2.5 MG TAB PO SCH (08:56)
--- NOTE | 2017-07-20 10:50 | Progress Note ---
Progress Note Date of Service Jul 20, 2017. Progress Note ID Consult Dictated #[id number] A/P: 1. + lyme IGG -Will start doxy 100mg po bid x 28 days -thank you
--- NOTE | 2017-07-20 11:47 | INFECT. DISEASE CONSULTATION ---
DATE OF CONSULTATION: 07/20/2017 DATE OF CONSULTATION: 07/20/2017 HISTORY OF PRESENT ILLNESS: This is an 87-year-old female who was admitted to the hospital after she was found on the floor by her son. She apparently lives in a trailer on her sons properly but is mostly independent. There was some concern over falls and weakness in the past few weeks. She is unable to provide any review of systems on my examination today. She was noticed to have an unkempt physical appearance on arrival to the hospital. Because of her fall, she had multiple imaging studies done of her neck including CT and MRI. She was also seen by orthopedic surgery. She did not have any remarkable findings on imaging. As part of her workup, a Lyme titer was drawn and her IgM was equivocal and her IgG is positive. Her Western blot is pending. She is currently not on any antibiotics. There is no reported fever prior to admission to the hospital. She has been afebrile since admission. Her white blood cell count is normal. A urinalysis as well as a urine drug screen were unremarkable. Again, I am unable to obtain any review of systems from the patient. PAST MEDICAL HISTORY: Significant for hypertension, AFib, COPD, and high cholesterol. FAMILY HISTORY: Noncontributory. SOCIAL HISTORY: Significant for daily tobacco use. Alcohol or drug use is unknown; however, her urine drug screen here was negative. ALLERGIES: SHE HAS ALLERGIES TO MORPHINE. CURRENT MEDICATIONS: Include digoxin, Lopressor, Xarelto, Zestril, nicotine patch, multivitamin, Lipitor, Tylenol, milk of magnesia, Zofran and Combivent. PHYSICAL EXAMINATION: VITAL SIGNS: She is afebrile, pulse 64, respiratory rate is 14, blood pressure is 176/80 and oxygen saturation is 95% on room air. GENERAL: She is lethargic and nonverbal on my exam, there is no nuchal rigidity. HEART: Regular. LUNGS: Clear. ABDOMEN: Nondistended. There is no edema. SKIN: Without rash. LABORATORY STUDIES: CBC reveals a white blood cell count of 8.1 on admission, hemoglobin 12.8 and platelets are 222. Chemistry panel on the 10th, sodium 138, potassium 3.8, chloride 105, bicarb 23, BUN 21, creatinine 1.1, glucose is 88. LFTs are within normal limits on admission. Urinalysis was negative. Urine drug screen negative. Again, Lyme antibody was equivocal for IgM and positive IgG. Western blot is pending. There is no micro to review. A chest x-ray done in the ER was negative for infiltrate. ASSESSMENT AND PLAN: Equivocal Lyme titer with a positive IgG screen. Western blot is pending and may be several days before this has returned. I did not see any contraindication to giving a course of doxycycline empirically at a dose of 100 mg twice daily for a total of 28 days. No further ID recommendations at this time. Thank you for this consultation.
[2017-07-20] MEDS: DOXYCYCLINE HYCLATE 100 MG CAP PO SCH ×2 (13:20→21:19)
[2017-07-20] MEDS: DIGOXIN 0.125 MG TAB PO SCH (16:30)
[2017-07-20] MEDS: RIVAROXABAN TAB 15 MG TAB PO SCH (17:34)
[2017-07-20] MEDS: ATORVASTATIN 20 MG TAB PO SCH (21:19)
[2017-07-21 07:24] VITALS: BP 178/72; PULSE 51; TEMP 36.4; O2SAT 97
[2017-07-21 07:28] LABS: 18KDIGG BAND REACTIVE (NONREACTIVE); 23KDIGG BAND NONREACTIVE (NONREACTIVE); 23KDIGM BAND REACTIVE (NONREACTIVE); 28KDIGG BAND REACTIVE (NONREACTIVE); 30KDIGG BAND REACTIVE (NONREACTIVE); 39KDIGG BAND REACTIVE (NONREACTIVE); 39KDIGM BAND REACTIVE (NONREACTIVE); 41KDIGG BAND REACTIVE (NONREACTIVE); 41KDIGM BAND NONREACTIVE (NONREACTIVE); 45KDIGG BAND REACTIVE (NONREACTIVE); 58KDIGG BAND REACTIVE (NONREACTIVE); 66KDIGG BAND REACTIVE (NONREACTIVE); 93KDIGG BAND REACTIVE (NONREACTIVE)
[2017-07-21 08:00] VITALS: O2SAT 97
[2017-07-21] MEDS: LISINOPRIL 2.5 MG TAB PO SCH (08:01)
[2017-07-21] MEDS: METOPROLOL TARTRATE 25 MG TAB PO SCH ×2 (08:01→20:28)
[2017-07-21] MEDS: MULTIVITAMIN TAB PO SCH (08:01)
[2017-07-21] MEDS: DOXYCYCLINE HYCLATE 100 MG CAP PO SCH ×2 (08:01→20:25)
[2017-07-21 09:33] VITALS: BP 154/57; PULSE 59; TEMP 36.8; O2SAT 97
--- NOTE | 2017-07-21 10:12 | Cardiology Follow-Up ---
Subjective Date of Service: Jul 21, 2017. Pt evaluation today including: conversation w/ patient, physical exam, lab review, review of studies, review of inpatient medication list History of Present Illness She has no complaints today, denies palpitations. She is not on telemetry. She seems to be tolerating her current medication regimen well. Social History Smoking Status: Current Every Day Smoker History of Alcohol Use: No Review of Systems Respiratory: No shortness of breath Cardiac: No chest pain, No palpitations Medications Cardiovascular: Item Value Date Time Digoxin 0.125 mg 07/20/17 1600 (Lanoxin Tab) MoWeFr@1600/PO Metoprolol 50 mg 07/19/17 2100 Tartrate BID/PO (Lopressor Tab) Rivaroxaban 15 mg 07/19/17 1615 (Xarelto Tab) DAILYBD/PO 07/20/17 1734 Lisinopril 2.5 mg 07/19/17 0900 (Zestril Tab) QAM/PO 07/21/17 0801 Atorvastatin 20 mg 07/17/17 2100 Calcium HS/PO 07/20/179 (Lipitor Tab) Objective Vital Signs Past 12 Hours Date Time Temp Pulse Resp B/P (MAP) Pulse Ox O2 Delivery O2 Flow Rate FiO2 07/21/17 09:33 36.8 59 18 154/57 (89) 97 Room Air 07/21/17 08:00 97 Room Air 07/21/17 07:24 36.4 51 16 178/72 (107) 97 Room Air 07/20/17 23:10 37.0 52 18 139/76 (97) 96 Room Air Last Recorded Weight-Kilograms: 43.500 Physical Exam Constitutional: Level of Distress: NAD Lungs: Auscultation: breath sounds normal Cardiovascular: Heart Auscultation: RRR Extremities: no edema General: No acute distress. Alert and oriented. HEENT: Head is normal. PERRLA. EOMI. Sclera nonicteric. Ears, nose and throat unremarkable. Neck: Supple. No JVD or carotid bruit. Lungs: Decreased breath sounds throughout but clear without rales, rhonchi or wheezes. Cardiac: Irregularly irregular rhythm with tachycardic rate. S1 and S2 normal. No appreciable murmur, gallop or rub. Abdomen: Soft and nontender. Bowel sounds normal. No mass or organomegaly. No abdominal bruit. Extremities: No cyanosis, clubbing or peripheral edema. Peripheral pulses intact. Skin: No rash or abnormal lesions. Normal turgor. Neurologic: Patient seems somewhat confused at times but for the most part carries on appropriate conversation. Assessment and Plan 1. Paroxysmal atrial fibrillation with RVR: She has been in sinus rhythm since spontaneous conversion at 11:30 AM on 07/19/2017. Prior to conversion her heart rate was fast but she had just received digoxin. I don't know that we would have adequate control if she goes back into atrial fibrillation but it is hard to tell. I can't go up on her beta carlos alberto due to resting bradycardia and her digoxin level is good. I would recommend continuing her current medical regimen as well as Xarelto. 2. Elevated troponin: Troponin I was elevated on admission but had a decreasing pattern consistent with demand ischemia. Presumably from rapid atrial fibrillation. I would not pursue further evaluation. 3. Bradycardia: She has sinus bradycardia, in part probably medication related, but I suspect she has sick sinus syndrome as well. I think it is acceptable but will limit our ability to use increasing beta blockade or calcium blockade for rate control during atrial fibrillation. 4. Sick sinus syndrome: She has sick sinus syndrome with sinus bradycardia and atrial fibrillation with a rapid heart rate. This may be difficult to control with medications over the long run. One or the other of these rhythms probably explains her presentation. I think she will need long-term monitoring to see if we can document significant tachycardia or bradycardia associated with symptoms , if so she will probably need a pacemaker to allow rate control for her tachycardia. I would not place a pacemaker now however as she may do better on the current medical regimen. Thank you for allowing me to participate in her care.
--- NOTE | 2017-07-21 12:48 | Hospitalist Progress Note ---
Hospitalist Progress Note Date of Service Jul 21, 2017. Subjective Pt evaluation today including: conversation w/ patient, physical exam, chart review, lab review, review of studies The patient was seen and examined this morning. Pt reports doing well. She thinks she is somewhere near the hospital this morning but not in a hospital. She is oriented to date, year and president. Also looks at me annoyed when I question her orientation. She denies any acute complaints, no pain, eating and drinking is going well, her bowels are moving. Additional Comments: Constitutional: No fever, No chills, No sweats Eyes: No redness, No diplopia ENT: No nasal symptoms, No trouble swallowing Respiratory: no cough, No shortness of breath Cardiovascular: No chest pain, No orthopnea, No edema, No palpitations Abdomen: No pain, No nausea, No vomiting, No diarrhea, No constipation Musculoskeletal: No joint pain, No swelling Neurologic: No weakness, No numbness/tingling Skin: No rash, No itch Objective Vital Signs Date Time Temp Pulse Resp B/P (MAP) Pulse Ox O2 Delivery O2 Flow Rate FiO2 07/21/17 09:33 36.8 59 18 154/57 (89) 97 Room Air 07/21/17 08:00 97 Room Air 07/21/17 07:24 36.4 51 16 178/72 (107) 97 Room Air 07/20/17 23:10 37.0 52 18 139/76 (97) 96 Room Air 07/20/17 21:17 37.0 53 16 164/70 (101) 95 Room Air 07/20/17 16:41 51 16 177/74 (108) 97 Room Air 07/20/17 16:30 96 Room Air 07/20/17 16:30 51 07/20/17 15:07 36.7 83 18 152/75 (100) 96 Room Air 07/20/17 14:00 36.7 50 16 97 3.0 Physical Exam Notes: General Appearance: WD/WN, no apparent distress, + thin Eyes: PERRL, EOMI ENT: hearing grossly normal, pharynx normal Neck: supple Respiratory/Chest: no accessory muscle use, + pertinent finding (on room air, clear breath sounds throughout but slightly diminished at bases, no adventitious breath sounds) Cardiovascular: regular rate, rhythm, no JVD, no murmur Abdomen: normal bowel sounds, non tender, soft Extremities: non-tender, no pedal edema, no calf tenderness Neurologic/Psychiatric: alert, normal mood/affect, oriented to date, year and president, not to place, follow commands Assessment and Plan 87 y/o F who was admitted on 07/17 with AMS AMS likely in the setting of Afib with RVR, seen on lead ekg early 07/19 - broke into NSR on 07/19 - waxes and wanes with orientation but overall improved - Continue on anticoagulation with afib in place, metoprolol 50 mg BID along with digoxin 0.125 MWF since loading dose on 07/19 - Trop with mild elevation initially has trended downward - likely was due to demand ischemia - Lyme IgG positive, IgM equivocal - ID consulted for recs - start doxycycline 100 mg BID x 28 days on 07/20- appreciate recs - Continue xarelto - pt likely fell from afib with rvr burst at home - discussed with cardiology as above. HTN - Inc metoprolol tartrate 50 mg BID- BP stable - noted that her pulse when in NSR she is bradycardic. - Loaded with digoxin, continue as above. HOWIE - resolved - Cr. 1.3 at time of admission, was normal on last admission 1 month ago, now 0.96 - NSS at 80mL/hr can be stopped Hypokalemia - Replaced with IV prn, follow PRP COPD: continue home meds Hyperlipidemia: - Cont statin therapy Chronic Tobacco use - nicotine patch= typically smokes a little less than 1 ppd. Code status: FULL CODE DVT ppx: Xarelto Disposition: From home, lives alone, CM assisting with d/c, awaiting placement at [facility].
[2017-07-21 14:58] VITALS: BP 160/69; PULSE 52; TEMP 36.9; O2SAT 95
[2017-07-21] MEDS: RIVAROXABAN TAB 15 MG TAB PO SCH (18:17)
[2017-07-21] MEDS: ATORVASTATIN 20 MG TAB PO SCH (20:24)
[2017-07-21] MEDS: MAGNESIUM HYDROXIDE SUSP 30 ML UDC PO PRN (20:24)
[2017-07-21 20:26] VITALS: BP 187/83; PULSE 69
[2017-07-21 22:43] VITALS: BP 192/80; PULSE 66; TEMP 36.4; O2SAT 95
[2017-07-22] VITALS (8 sets, daily range): BP systolic 159–191; BP diastolic 62–73; PULSE 50–66; TEMP 36.1–36.7; O2SAT 92–99
[2017-07-22] MEDS: DOXYCYCLINE HYCLATE 100 MG CAP PO SCH ×2 (08:13→20:38)
[2017-07-22] MEDS: LISINOPRIL 2.5 MG TAB PO SCH (08:18)
[2017-07-22] MEDS: METOPROLOL TARTRATE 25 MG TAB PO SCH ×2 (08:18→20:38)
[2017-07-22] MEDS: MULTIVITAMIN TAB PO SCH (08:18)
[2017-07-22] MEDS ORDERED: LISINOPRIL 2.5 MG TAB PO STA (08:52)
--- NOTE | 2017-07-22 09:22 | Cardiology Follow-Up ---
Subjective Date of Service: Jul 22, 2017. Pt evaluation today including: conversation w/ patient, physical exam, lab review, review of studies, review of inpatient medication list History of Present Illness She has no complaints today, denies palpitations. She is not on telemetry. She seems to be tolerating her current medication regimen well. Social History Smoking Status: Current Every Day Smoker History of Alcohol Use: No Review of Systems Respiratory: No shortness of breath Cardiac: No chest pain, No palpitations Medications Cardiovascular: Item Value Date Time Lisinopril 5 mg 07/23/17 0900 (Zestril Tab) QAM/PO Digoxin 0.125 mg 07/20/17 1600 (Lanoxin Tab) MoWeFr@1600/PO Metoprolol 50 mg 07/19/17 2100 Tartrate BID/PO (Lopressor Tab) Rivaroxaban 15 mg 07/19/17 161 (Xarelto Tab) DAILYBD/PO 07/21/171816 Atorvastatin 20 mg 07/17/172099 Calcium HS/PO 07/21/172023 (Lipitor Tab) Objective Vital Signs Past 12 Hours Date Time Temp Pulse Resp B/P (MAP) Pulse Ox O2 Delivery O2 Flow Rate FiO2 07/22/17 00:00 Room Air 07/21/17 22:43 36.4 66 20 192/80 (117) 95 Room Air Last Recorded Weight-Kilograms: 43.500 Physical Exam Constitutional: Level of Distress: NAD Lungs: Auscultation: breath sounds normal Cardiovascular: Heart Auscultation: RRR Extremities: no edema General: No acute distress. Alert and oriented. HEENT: Head is normal. PERRLA. EOMI. Sclera nonicteric. Ears, nose and throat unremarkable. Neck: Supple. No JVD or carotid bruit. Lungs: Decreased breath sounds throughout but clear without rales, rhonchi or wheezes. Cardiac: Irregularly irregular rhythm with tachycardic rate. S1 and S2 normal. No appreciable murmur, gallop or rub. Abdomen: Soft and nontender. Bowel sounds normal. No mass or organomegaly. No abdominal bruit. Extremities: No cyanosis, clubbing or peripheral edema. Peripheral pulses intact. Skin: No rash or abnormal lesions. Normal turgor. Neurologic: Patient seems somewhat confused at times but for the most part carries on appropriate conversation. Data Laboratory Results: Last 24 Hours Test 07/22/17 06:44 Creatinine 1.00 mg/dl Est Creatinine Clear Calc Drug Dose 27.1 ml/min Estimated GFR () 58.7 Estimated GFR (Non- 50.6 Imaging: EKG: Telemetry reviewed: Assessment and Plan 1. Paroxysmal atrial fibrillation with RVR: She has been in sinus rhythm as far as we know (she is not on telemetry) since spontaneous conversion at 11:30 AM on 07/19/2017. Prior to conversion her heart rate was fast but she had just received digoxin. I don't know that we would have adequate control if she goes back into atrial fibrillation but it is hard to tell. I can't go up on her beta carlos alberto due to resting bradycardia and her digoxin level was good, however her medications are being held due to low heart rate. I would recommend reducing her metoprolol to 25 mg twice a day, continuing the digoxin and the Xarelto. The only other option is pacemaker implantation which showed prefer not to do unless we're sure we can't control things with medications. 2. Elevated cardiac enzymes: This was in a decreasing pattern consistent with demand ischemia. Presumably from rapid atrial fibrillation. I would not pursue further evaluation. 3. Bradycardia: She has sinus bradycardia, in part probably medication related, but I suspect she has sick sinus syndrome as well. I think it is acceptable but will limit our ability to use increasing beta blockade or calcium blockade for rate control during atrial fibrillation. 4. Sick sinus syndrome: She has sick sinus syndrome with sinus bradycardia and atrial fibrillation with a rapid heart rate. This may be difficult to control with medications over the long run. One or the other of these rhythms probably explains her presentation. I think she will need long-term monitoring to see if we can document significant tachycardia or bradycardia associated with symptoms , if so she will probably need a pacemaker to allow rate control for her tachycardia. I would not place a pacemaker now but if we can't get her atrial fibrillation under control without significant bradycardia we will be forced to do that. Thank you for allowing me to participate in her care.
--- NOTE | 2017-07-22 12:08 | Progress Note ---
Subjective Date of Service: Jul 22, 2017. Subjective Pt evaluation today including: conversation w/ patient, physical exam, chart review, lab review, review of studies, review of inpatient medication list Doing the same, awake and alert, orientated to name and birthday, no orientated to the place Nursing staff reported patient eating okay However because of bradycardia, distress he was hold yesterday and metoprolol was hold one dose today, patient currently blood pressure was elevated Problem List Medical Problems: (1) Acute CVA (cerebrovascular accident) Status: Acute (2) Ambulatory dysfunction Status: Acute (3) Elevated troponin Status: Acute (4) Frequent falls Status: Acute (5) Generalized weakness Status: Acute (6) Head injury Status: Acute (7) Hypokalemia Status: Acute (8) Scabies Status: Acute (9) Scalp laceration Status: Acute Review of Systems Constitutional: + weakness, + fatigue, No fever, No chills, No sweats, No weight loss, No problem reported Eyes: No worsening of vision, No eye pain, No redness, No discharge, No diplopia ENT: No hearing loss, No unusual epistaxis, No nasal symptoms, No sore throat, No tinnitus, No dental problems, No trouble swallowing Respiratory: No cough, No sputum, No wheezing, No shortness of breath, No dyspnea on exertion, No dyspnea at rest, No hemoptysis Cardiac: No chest pain, No orthopnea, No PND, No edema, No claudication, No palpitations Abdomen: No pain, No nausea, No vomiting, No diarrhea, No constipation Musculoskeletal: No joint pain, No muscle pain, No swelling, No calf pain Female : No dysuria, No urinary frequency, No hematuria, No incontinence, No abnormal vaginal bleeding, No vaginal discharge Neurologic: No memory loss, No paralysis, No weakness, No numbness/tingling, No vertigo, No balance problems Psychiatric: No depression symptoms, No anhedonism, No anxiety, No insomnia, No substance abuse Heme: No abnormal bleeding/bruising, No clotting problems, No swollen lymph nodes, No night sweats Endo: No fatigue, No excessive thirst, No excessive urination Skin: No rash, No itch, No new/changing skin lesions, No color change, No bleeding Objective Vital Signs Date Time Temp Pulse Resp B/P (MAP) Pulse Ox O2 Delivery O2 Flow Rate FiO2 07/22/17 09:00 52 20 167/69 (101) 96 07/22/17 08:00 36.6 50 20 191/63 (105) 93 07/22/17 08:00 Room Air 07/22/17 00:00 Room Air 07/21/17 22:43 36.4 66 20 192/80 (117) 95 Room Air 07/21/17 20:26 69 187/83 (117) 07/21/17 18:13 Room Air 07/21/17 14:58 36.9 52 16 160/69 (99) 95 Room Air Physical Exam General Appearance: + thin, + pertinent finding (frail, however is pleasant, the same as yesterday) Eyes: normal inspection, PERRL ENT: normal ENT inspection, hearing grossly normal Neck: supple, no adenopathy Respiratory/Chest: chest non-tender, + decreased breath sounds Cardiovascular: regular rate, rhythm, no edema, no gallop Abdomen: normal bowel sounds, non tender Extremities: normal range of motion, non-tender 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, no motor/sensory deficits, normal mood/affect Skin: normal color, warm/dry Laboratory Results Last 24 Hours Test 07/22/17 06:44 Creatinine 1.00 mg/dl Est Creatinine Clear Calc Drug Dose 27.1 ml/min Estimated GFR () 58.7 Estimated GFR (Non- 50.6 Assessment and Plan 87 y/o F who was admitted on 07/17 with AMS AMS likely in the setting of Afib with RVR, seen on lead ekg early 07/19 - broke into NSR on 07/19 - waxes and wanes with orientation but overall improved - However sometimes bradycardia, cardiology recommended reducing her metoprolol to 25 mg twice a day, continuing the digoxin and the Xarelto. - Continue on anticoagulation with afib in place, - Trop with mild elevation initially has trended downward - likely was due to demand ischemia - Continue laboratory monitor because need to have better monitor of heart rate and blood pressure - Lyme IgG positive, IgM equivocal - ID consulted for recs - start doxycycline 100 mg BID x 28 days on 07/20- appreciate recs HTN - On beta carlos alberto and digoxin, continue as above, has started lisinopril 5 mg by mouth daily HOWIE - resolved - Cr. 1.3 at time of admission, was normal on last admission 1 month ago, now 0.96 Hypokalemia - Replaced with IV prn, follow PRP COPD: continue home meds Hyperlipidemia: - Cont statin therapy Chronic Tobacco use - nicotine patch= typically smokes a little less than 1 ppd. Code status: FULL CODE DVT ppx: Xarelto [facility] is ready for her however patient not ready yet,, possible discharge over the weekend Continued [facility] stay due to: multiple IV medications needed Discharge planning: home
[2017-07-22] MEDS: DIGOXIN 0.125 MG TAB PO SCH (16:00)
[2017-07-22] MEDS: RIVAROXABAN TAB 15 MG TAB PO SCH (16:26)
[2017-07-22] MEDS: MAGNESIUM HYDROXIDE SUSP 30 ML UDC PO PRN (16:30)
[2017-07-22] MEDS ORDERED: HydrALAZINE HCL 20 MG/ML VIAL IV. PRN (17:00)
[2017-07-22] MEDS: ATORVASTATIN 20 MG TAB PO SCH (20:37)
[2017-07-23] VITALS (8 sets, daily range): BP systolic 161–185; BP diastolic 60–81; PULSE 48–54; TEMP 35.8–36.8; O2SAT 90–98
[2017-07-23] MEDS ORDERED: LISINOPRIL 5 MG TAB PO SCH (09:00)
[2017-07-23] MEDS: METOPROLOL TARTRATE 25 MG TAB PO SCH ×2 (09:00→21:00)
[2017-07-23] MEDS: MULTIVITAMIN TAB PO SCH (10:30)
[2017-07-23] MEDS: DOXYCYCLINE HYCLATE 100 MG CAP PO SCH ×2 (10:30→21:38)
--- NOTE | 2017-07-23 12:15 | Progress Note ---
Subjective Date of Service: Jul 23, 2017. Subjective Pt evaluation today including: conversation w/ patient, conversation w/ family , physical exam, chart review, lab review, review of studies, review of inpatient medication list Was not sleeping overnight, currently is in rest and sleep, however awakable, looked tired, nursing care report has been eating drinking okay, has good bowel movement, No complaint Problem List Medical Problems: (1) Acute CVA (cerebrovascular accident) Status: Acute (2) Ambulatory dysfunction Status: Acute (3) Elevated troponin Status: Acute (4) Frequent falls Status: Acute (5) Generalized weakness Status: Acute (6) Head injury Status: Acute (7) Hypokalemia Status: Acute (8) Scabies Status: Acute (9) Scalp laceration Status: Acute Review of Systems Constitutional: + see HPI, + problem reported (is partially limited because the patient is sleepy), No fever, No chills, No sweats, No weight loss, No weakness, No fatigue Eyes: No see HPI, No worsening of vision, No eye pain, No redness, No discharge , No diplopia, No problem reported ENT: No see HPI, No hearing loss, No unusual epistaxis, No nasal symptoms, No sore throat, No tinnitus, No dental problems, No trouble swallowing, No problem reported Respiratory: No see HPI, No cough, No sputum, No wheezing, No shortness of breath, No dyspnea on exertion, No dyspnea at rest, No hemoptysis, No problem reported Cardiac: No see HPI, No chest pain, No orthopnea, No PND, No edema, No claudication, No palpitations, No problem reported Abdomen: No see HPI, No pain, No nausea, No vomiting, No diarrhea, No constipation, No GI bleeding, No problem reported Musculoskeletal: No see HPI, No joint pain, No muscle pain, No swelling, No calf pain, No problem reported Female : No see HPI, No dysuria, No urinary frequency, No hematuria, No incontinence, No abnormal vaginal bleeding, No vaginal discharge, No problem reported Objective Vital Signs Date Time Temp Pulse Resp B/P (MAP) Pulse Ox O2 Delivery O2 Flow Rate FiO2 07/23/17 11:26 35.9 50 16 183/65 (104) 97 Room Air 07/23/17 08:00 Room Air 07/23/17 07:10 35.8 52 20 163/76 (105) 90 Room Air 07/23/17 04:00 98 Room Air 07/23/17 04:00 36.0 50 20 169/60 (96) 98 Room Air 07/23/17 00:00 92 Room Air 07/22/17 23:16 36.1 60 20 165/62 (96) 93 Room Air 07/22/17 20:00 92 Room Air 07/22/17 18:53 36.6 66 16 159/66 (97) 92 Room Air 07/22/17 18:11 58 188/73 (111) 07/22/17 16:07 Room Air 07/22/17 16:00 49 07/22/17 15:38 36.6 52 20 96 3.0 07/22/17 15:37 36.7 50 18 181/71 (107) 99 Room Air Physical Exam General Appearance: WD/WN, no apparent distress, + pertinent finding (frail) Eyes: normal inspection, PERRL, EOMI, sclerae normal ENT: normal ENT inspection, hearing grossly normal, pharynx normal Neck: supple, no adenopathy, thyroid normal, no JVD, no carotid bruits, trachea midline Respiratory/Chest: chest non-tender, lungs clear, normal breath sounds, no respiratory distress, no accessory muscle use Cardiovascular: regular rate, rhythm, no edema, no gallop, no JVD, no murmur Abdomen: normal bowel sounds, non tender, soft, no organomegaly, no pulsatile mass Extremities: normal range of motion, non-tender, normal inspection, no pedal edema, no calf tenderness, normal capillary refill, pelvis stable 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 - Continue on anticoagulation with afib - Trop with mild elevation initially has trended downward - likely was due to demand ischemia - Continue alarm security or surveillance monitor because need to have better monitor of heart rate and blood pressure - Lyme IgG positive, IgM equivocal - ID consulted for recs - start doxycycline 100 mg BID x 28 days on 07/20/2017- appreciate recs Accelerated hypertension, has been several days, slowly improving after adjusting medication - On beta carlos alberto and digoxin, continue as above, increased lisinopril 7.5 mg by mouth daily HOWIE - resolved - Cr. 1.3 at time of admission, was normal on last admission 1 month ago, now 0.96 Hypokalemia - Replaced with IV prn, follow PRP COPD: continue home meds Hyperlipidemia: - Cont statin therapy Chronic Tobacco use - nicotine patch= typically smokes a little less than 1 ppd. Code status: FULL CODE DVT ppx: Xarelto [facility] is ready, today patient is better, I am adjusting blood pressure medication, and patient looks so tired, I'm calling to daughter to give her update, this message left for her to call me back, will plan to discharge patient to [facility] tomorrow Continued [facility] stay due to: multiple IV medications needed Discharge planning: home
[2017-07-23] MEDS ORDERED: LISINOPRIL 2.5 MG TAB PO ONE (12:30)
[2017-07-23] MEDS: RIVAROXABAN TAB 15 MG TAB PO SCH (16:56)
[2017-07-23] MEDS: ATORVASTATIN 20 MG TAB PO SCH (21:38)
[2017-07-24 04:41] VITALS: BP 169/72; PULSE 52; TEMP 36.7; O2SAT 94
[2017-07-24 06:30] VITALS: BP 164/74; PULSE 49; TEMP 36.5; O2SAT 95
[2017-07-24] MEDS ORDERED: LSN25 PO ×2 (07:01)
[2017-07-24] MEDS ORDERED: NICO21DI4 TD ×2 (07:01)
[2017-07-24] MEDS ORDERED: DXY100 PO ×3 (07:01→07:12)
[2017-07-24] MEDS ORDERED: LNX125 PO ×2 (07:01)
--- NOTE | 2017-07-24 07:11 | Discharge Instructions ---
Discharge Instructions Date of Service Jul 24, 2017. Admission Reason for Admission: Altered Mental Status Discharge Discharge Diagnosis / Problem: Afib with bradycardy Discharge Goals Goal(s): Decrease discomfort, Improve function, Increase independence, Improve disease control, Improve nutritional status, Learn about illness, Diagnostic testing, Therapeutic intervention, Prevent Disease Progression, Specific goals Activity Recommendations Activity Level: Assistance Required Therapies: Physical Therapy, Occupational Therapy . Additional Information Patient informed of condition: Yes Advance Directives: No DNR: No Level of Care: Skilled Communicable Disease: No Prognosis: Stable Iniguez Catheter: No Instructions / Follow-Up Instructions / Follow-Up you have" Afib with bradycardia:, cardiology is adjust oyur medicine, your need to follow up with filler spreader in 1-2 weeks you possible have lyme disease you need to continue start doxycycline 100 mg BID x 28 days from 07/20/2017 you have Accelerated hypertension, you need to follow up with pcp to adjust this medicine - you need to follow up with your primary care physician in 1 week, - take medication as instructed, never overdose or any misuse, or take with alcohol, because misuse of medicine may cause organ damage or , call your primary care physician if have questions of medicaitons. - call your primary care physician OR go to local emergency room if has any fever/chill, chest pain, shortness of breathing, nausea/vomiting/abdominal pain , facial droop/slurry speech/local weakness, or if has any questions. - fall precaution - diet as instructed - you need to follow up with your subspecialist - you should understand that it is important to follow up the above instruction , and "not following the above instruction" may cause delayed or missed care of your medical conditions Current Hospital Diet Patient's current hospital diet: AHA Diet (Heart Healthy) Discharge Diet Recommended Diet: AHA Diet (Heart Healthy) Pending Studies Studies pending at discharge: no Physician Orders On Transfer POLST Discussion: without POLST completion Laboratory Results Meds Administered (Past 24Hrs) Medications (Trade) Dose Ordered Sig/Paco Route Start Time Stop Time Status Last Admin Dose Admin Lisinopril (Zestril Tab) 5 mg QAM PO 07/23/17 09:00 07/23/17 12:09 DC 07/23/17 10:30 5 MG Lisinopril (Zestril Tab) 2.5 mg NOW STAT PO 07/22/17 08:52 07/22/17 08:53 DC 07/22/17 08:52 2.5 MG Metoprolol Tartrate (Lopressor Tab) 25 mg BID PO 07/22/17 21:00 08/21/17 20:59 07/22/17 20:38 25 MG Hydralazine HCl (HydrALAZINE INJ) 20 mg Q6 PRN IV. 07/22/17 17:00 08/21/17 16:59 07/22/17 18:12 20 MG Lisinopril (Zestril Tab) 2.5 mg 1230 ONCE PO 07/23/17 12:30 07/23/17 12:31 DC 07/23/17 13:01 2.5 MG Medical Emergencies . Who to Call and When: Medical Emergencies: If at any time you feel your situation is an emergency, please call 911 immediately. . Non-Emergent Contact Non-Emergency issues call your: Primary Care Provider, [employer] . . "Provider Documentation" section prepared by Azam Blanton. . Core Measure Problem Core Measures: None
[2017-07-24] MEDS: METOPROLOL TARTRATE 25 MG TAB PO SCH (08:27)
[2017-07-24] MEDS: DOXYCYCLINE HYCLATE 100 MG CAP PO SCH (08:41)
[2017-07-24] MEDS: MULTIVITAMIN TAB PO SCH (08:41)
[2017-07-24] MEDS ORDERED: LISINOPRIL 2.5 MG TAB PO SCH (09:00)
--- NOTE | 2017-07-24 09:49 | Discharge Summary ---
Discharge Summary Date of Service Jul 24, 2017. Discharge Summary Admission Date: Jul 17, 2017 at 18:30 Discharge Date: Jul 24, 2017 Discharge Disposition: long-term facility Principal Diagnosis: Afib with bradycardia: Problems/Secondary Diagnoses: possible have lyme disease you need to continue start doxycycline 100 mg BID x 28 days from 07/20/2017 Accelerated hypertension Immunizations: Have You Had Influenza Vaccine: Yes Influenza Vaccine Date: Aug 02, 2008 History of Tetanus Vaccine?: Unknown History of Pneumococcal: No History of Hepatitis B Vaccine: No Procedures: No Consultations: Top Cager Medication Reconciliation New Medications: Digoxin (Digoxin) 0.125 Mg Tab 0.125 MG PO MoWeFr@1600 for 30 Days, TAB Doxycycline Hyclate (Doxycycline Hyclate) 100 Mg Cap 100 MG PO BID for 23 Days, #46 CAP from 07/20/2017 for total 28 days Lisinopril (Lisinopril) 2.5 Mg Tab 7.5 MG PO QAM for 30 Days, #90 TAB Nicotine (Nicoderm Cq) 21 Mg/24 Hr Dis 1 PATCH TD QAM PRN for nicotine withdrawal for 30 Days Continued Medications: Atorvastatin (Atorvastatin Calcium) 20 Mg Tab 20 MG PO HS, #30 TAB 5 Refills Ipratropium-Albuterol (Combivent Respimat) 1 Aer Aer 1 PUFFS INH QID PRN for cough/wheeze, #1 INH 0 Refills Metoprolol Tartrate (Lopressor) 25 Mg Tab 25 MG PO BID, #60 TAB 5 Refills Multivitamin (Multivitamin) Tab 1 TAB PO DAILY, TAB Rivaroxaban (Xarelto) 15 Mg Tab 15 MG PO QDD, #30 TAB 5 Refills Discharge Exam Doing the same, pleasant, no complaining, Review of Systems: Constitutional: + weakness, + fatigue, No fever, No chills, No sweats, No weight loss, No problem reported Eyes: No worsening of vision, No eye pain, No redness, No discharge, No diplopia, No problem reported ENT: No hearing loss, No unusual epistaxis, No nasal symptoms, No sore throat, No tinnitus, No dental problems, No trouble swallowing, No problem reported Respiratory: No cough, No sputum, No wheezing, No shortness of breath, No dyspnea on exertion, No dyspnea at rest, No hemoptysis, No problem reported Cardiovascular: No chest pain, No orthopnea, No PND, No edema, No claudication, No palpitations, No problem reported Abdomen: No pain, No nausea, No vomiting, No diarrhea, No constipation, No GI bleeding, No problem reported Genitourinary - Female: No dysuria, No urinary frequency, No urinary urgency , No urinary incontinence, No urinary retention, No hematuria, No dysmenorrhea, No menorrhagia, No metrorrhagia, No rash, No vaginal bleeding, No vaginal discharge, No vaginal itching, No vulvodynia, No , No problem reported Neurologic: No memory loss, No paralysis, No weakness, No numbness/tingling , No vertigo, No balance problems, No problem reported Psychiatric: No depression symptoms, No anhedonism, No anxiety, No insomnia , No substance abuse, No problem reported Endocrine: No fatigue, No excessive thirst, No excessive urination, No problem reported Hematologic / Lymphatic: No abnormal bleeding/bruising, No clotting problems , No swollen lymph nodes, No night sweats, No problem reported Integumentary: No rash, No itch, No new/changing skin lesions, No color change, No bleeding, No problem reported Physical Exam: General Appearance: WD/WN, + obese (frail) Eyes: normal inspection, PERRL ENT: normal ENT inspection, hearing grossly normal Neck: supple, no adenopathy Respiratory/Chest: chest non-tender, + decreased breath sounds Cardiovascular: regular rate, rhythm, no edema, no gallop Abdomen / GI: normal bowel sounds, non tender, soft Extremities: normal inspection, no calf tenderness, normal capillary refill , no pedal edema 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, no motor/sensory deficits , alert, normal mood/affect, normal reflexes, oriented x 3 Skin: normal color, warm/dry, no rash Hospital Course 87 y/o F who was admitted on 07/17/2017 with altered mental status, stable and resolved Altered mental status , AMS likely in the setting of Afib with RVR, seen on lead ekg early 07/19/2017- broke into NSR on 07/19 overall improved - Afib with bradycardia, cardiology recommended reducing her metoprolol to 25 mg twice a day, continuing the digoxin and the Xarelto, which has been stable and improving - Continue on anticoagulation with afib - Trop with mild elevation initially has trended downward - likely was due to demand ischemia - Has been continue huc ob because need to have better monitor of heart rate and blood pressure, which has been better - Possible Lyme disease with Lyme IgG positive, IgM equivocal - ID consulted for recs - start doxycycline 100 mg BID x 28 days on 07/20/2017- appreciate recs Accelerated hypertension, has been several days, slowly improving after adjusting medication - On beta carlos alberto and digoxin, continue as above, increased lisinopril 7.5 mg by mouth daily yesterday HOWIE - resolved - Cr. 1.3 at time of admission, was normal on last admission 1 month ago, now 0.96 Hypokalemia - Replaced with IV prn, follow PRP COPD: continue home meds Hyperlipidemia: - Cont statin therapy Chronic Tobacco use - nicotine patch= typically smokes a little less than 1 ppd. Code status: FULL CODE DVT ppx: Xarelto [facility] is ready per dependency case manager, called to to daughter to give her update , discharge patient to [facility] today Instructions / Follow-Up you have" Afib with bradycardia:, cardiology is adjust oyur medicine, your need to follow up with [facility] in 1-2 weeks you possible have lyme disease you need to continue start doxycycline 100 mg BID x 28 days from 07/20/2017 you have Accelerated hypertension, you need to follow up with pcp to adjust this medicine - you need to follow up with your primary care physician in 1 week, - take medication as instructed, never overdose or any misuse, or take with alcohol, because misuse of medicine may cause organ damage or , call your primary care physician if have questions of medicaitons. - call your primary care physician OR go to local emergency room if has any fever/chill, chest pain, shortness of breathing, nausea/vomiting/abdominal pain , facial droop/slurry speech/local weakness, or if has any questions. - fall precaution - diet as instructed - you need to follow up with your subspecialist - you should understand that it is important to follow up the above instruction , and "not following the above instruction" may cause delayed or missed care of your medical conditions Total Time Spent: Greater than 30 minutes This includes examination of the patient, discharge planning, medication reconciliation, and communication with other providers. Discharge Instructions Please refer to the electronic Patient Visit Report (Discharge Instructions) for additional information. Additional Copies To Dick Loay MD; Hannah Quintana C.R.N.P
[2017-07-24 11:42] VITALS: BP 164/74; PULSE 49; TEMP 36.5; O2SAT 95
== END 2017-07-24 13:10 | DRG 308 ==
LOC: EDBD 15:44 → C.EDB 15:45 → C.2T 18:30 → ENRESERV 19:12 → C.MS2W 07-20 14:29 → ENRESERV 07-22 13:20 → C.MED 07-22 15:37
PROVIDERS: ADMIT Family Medicine; ATTEND Hospitalist
DX: I48.0 Paroxysmal atrial fibrillation (principal); G93.40 Encephalopathy, unspecified; N17.9 Acute kidney failure, unspecified; I49.5 Sick sinus syndrome; R76.0 Raised antibody titer; M48.02 Spinal stenosis, cervical region; I10 Essential (primary) hypertension; J44.9 Chronic obstructive pulmonary disease, unspecified; E78.5 Hyperlipidemia, unspecified; E87.6 Hypokalemia; F17.200 Nicotine dependence, unspecified, uncomplicated; Z79.01 Long term (current) use of anticoagulants; Z79.899 Other long term (current) drug therapy

== ENCOUNTER → 2017-07-25 | Outpatient (CLI) | payer OTHER ==
[~2017-07-25] MED LIST changes: +DXY100 PO; +LNX125 PO; +LSN25 PO; +NICO21DI4 TD; -SODIUM CHLORIDE 0.9% 1000ML 1,000 ML IV SCH
[2017-07-25 08:33] LABS: HEMATOCRIT 40.4 % (37-47); MEAN CELL VOLUME 90.8 fL (80-100); MEAN CORPUSCULAR HGB CONC 34.2 g/dl (32-36); MEAN PLATELET VOLUME 9.8 fL (7.4-10.4); PLATELET COUNT 282 K/uL (130-400); RED BLOOD COUNT 4.45 M/uL (4.2-5.4); WHITE BLOOD COUNT 7.52 K/uL (4.8-10.8)
[2017-07-25 08:40] LABS: ALT/SGPT 22 U/L (12-78); BLOOD UREA NITROGEN 39 mg/dl (7-18); BUN/CREATININE RATIO 27.5 (10-20); CALCIUM 8.8 mg/dl (8.5-10.1); CARBON DIOXIDE 26 mmol/L (21-32); CHLORIDE 102 mmol/L (98-107); CREATININE 1.41 mg/dl (0.60-1.20); GLUCOSE 83 mg/dl (70-99); POTASSIUM 4.7 mmol/L (3.5-5.1); SODIUM 135 mmol/L (136-145)
[2017-07-25 08:43] LABS: ALB/GLOB RATIO 0.7 (0.9-2); ALKALINE PHOSPHATASE 96 U/L (45-117); AST/SGOT 12 U/L (15-37)
== END | disposition home or self-care (01) ==
LOC: C.LABUPUNI 08:03
PROVIDERS: ATTEND Nurse Practitioner Family
DX: J44.9 Chronic obstructive pulmonary disease, unspecified (principal)

== ENCOUNTER → 2017-07-27 | Outpatient (CLI) | payer OTHER ==
[2017-07-27 09:01] LABS: BLOOD UREA NITROGEN 40 mg/dl (7-18); BUN/CREATININE RATIO 35.4 (10-20); CALCIUM 8.7 mg/dl (8.5-10.1); CARBON DIOXIDE 27 mmol/L (21-32); CHLORIDE 102 mmol/L (98-107); CREATININE 1.14 mg/dl (0.60-1.20); GLUCOSE 83 mg/dl (70-99); POTASSIUM 4.2 mmol/L (3.5-5.1); SODIUM 136 mmol/L (136-145)
== END | disposition home or self-care (01) ==
LOC: C.LABUPNIT 08:23
PROVIDERS: ATTEND Nurse Practitioner Family
DX: J44.9 Chronic obstructive pulmonary disease, unspecified (principal)

== ENCOUNTER → 2017-08-01 | Outpatient (CLI) | payer OTHER ==
[2017-08-01 09:20] LABS: BASO % 0.8 %; BASO ABS # 0.04 K/uL (0-0.2); COMPLETE YES; EOS % 3.9 %; IG% 0.2 %; LYMPH % 29.4 %; LYMPH ABS # 1.45 K/uL (1.2-3.4); MEAN CELL VOLUME 91.4 fL (80-100); MEAN CORPUSCULAR HEMOGLOBIN 30.1 pg (25-34); MEAN PLATELET VOLUME 9.1 fL (7.4-10.4); MONO % 11.6 %; NEUT % 54.1 %; PLATELET COUNT 321 K/uL (130-400); RED BLOOD COUNT 4.05 M/uL (4.2-5.4); WHITE BLOOD COUNT 4.93 K/uL (4.8-10.8)
[2017-08-01 09:27] LABS: ALT/SGPT 19 U/L (12-78); AST/SGOT 17 U/L (15-37); BLOOD UREA NITROGEN 36 mg/dl (7-18); BUN/CREATININE RATIO 33.6 (10-20); CALCIUM 8.7 mg/dl (8.5-10.1); CARBON DIOXIDE 24 mmol/L (21-32); CHLORIDE 105 mmol/L (98-107); CREATININE 1.08 mg/dl (0.60-1.20); GLUCOSE 76 mg/dl (70-99); SODIUM 137 mmol/L (136-145)
[2017-08-01 09:30] LABS: ALB/GLOB RATIO 0.8 (0.9-2); ALKALINE PHOSPHATASE 116 U/L (45-117)
== END ==
LOC: C.LABUPNIT 09:02
PROVIDERS: ATTEND Nurse Practitioner Family
DX: J44.9 Chronic obstructive pulmonary disease, unspecified (principal)

== ENCOUNTER → 2017-08-08 | Outpatient (CLI) | payer OTHER ==
[~2017-08-08] MED LIST changes: +ACET-1311 PO; +ACET325T96 PO; +AMLO2.5T PO; +BISA-16 PO; +CTP/1 PO; +GLGKIT IM; +LSNP/30 PO; +METO25TA56 PO; +MOML PO; +OXYC-57 PO; +SODI1ENE RE
[2017-08-08 09:35] LABS: BASO % 0.6 %; BASO ABS # 0.03 K/uL (0-0.2); COMPLETE YES; EOS % 3.3 %; HEMATOCRIT 34.9 % (37-47); IG% 0.4 %; LYMPH ABS # 1.68 K/uL (1.2-3.4); MEAN CELL VOLUME 91.4 fL (80-100); MEAN CORPUSCULAR HEMOGLOBIN 30.6 pg (25-34); MEAN CORPUSCULAR HGB CONC 33.5 g/dl (32-36); MEAN PLATELET VOLUME 10.3 fL (7.4-10.4); MONO % 11.8 %; NEUT % 50.9 %; PLATELET COUNT 230 K/uL (130-400); RED BLOOD COUNT 3.82 M/uL (4.2-5.4); WHITE BLOOD COUNT 5.09 K/uL (4.8-10.8)
[2017-08-08 09:42] LABS: ALT/SGPT 20 U/L (12-78); BLOOD UREA NITROGEN 49 mg/dl (7-18); BUN/CREATININE RATIO 36.6 (10-20); CALCIUM 8.3 mg/dl (8.5-10.1); CARBON DIOXIDE 23 mmol/L (21-32); CHLORIDE 109 mmol/L (98-107); CREATININE 1.33 mg/dl (0.60-1.20); GLUCOSE 75 mg/dl (70-99); POTASSIUM 3.9 mmol/L (3.5-5.1); SODIUM 140 mmol/L (136-145)
[2017-08-08 09:45] LABS: ALB/GLOB RATIO 0.8 (0.9-2); ALKALINE PHOSPHATASE 119 U/L (45-117); AST/SGOT 19 U/L (15-37)
== END ==
LOC: C.LABUPNIT 08:55
PROVIDERS: ATTEND Nurse Practitioner Family
DX: A69.20 Lyme disease, unspecified (principal)

== ENCOUNTER 2017-08-17 09:07 | Inpatient (IN) | payer OTHER ==
[~2017-08-17] VITALS: Ht 149.9 cm; Wt 41.5 kg
[~2017-08-17 09:07] MED LIST changes: -ACET-1311 PO; -ACET325T96 PO; -AMLO2.5T PO; -BISA-16 PO; -CTP/1 PO; -GLGKIT IM; -LSNP/30 PO; -METO25TA56 PO; -MOML PO; -OXYC-57 PO; -SODI1ENE RE
[2017-08-17 10:10] LABS: BASO % 0.2 %; BASO ABS # 0.02 K/uL (0-0.2); COMPLETE YES; EOS % 0.5 %; HEMATOCRIT 39.8 % (37-47); IG% 0.3 %; LYMPH % 8.6 %; LYMPH ABS # 0.92 K/uL (1.2-3.4); MEAN CELL VOLUME 91.3 fL (80-100); MEAN CORPUSCULAR HEMOGLOBIN 30.7 pg (25-34); MEAN CORPUSCULAR HGB CONC 33.7 g/dl (32-36); MEAN PLATELET VOLUME 9.9 fL (7.4-10.4); MONO % 6.1 %; NEUT % 84.3 %; PLATELET COUNT 196 K/uL (130-400); RED BLOOD COUNT 4.36 M/uL (4.2-5.4)
[2017-08-17 10:18] LABS: INR 1.2 (0.9-1.1); PARTIAL THROMBOPLASTIN RATIO 1.1; PROTHROMBIN TIME (PATIENT) 12.6 SECONDS (9.0-12.0)
--- NOTE | 2017-08-17 10:23 | DIAGNOSTIC IMAGING REPORT ---
L PELVIS/UNILATERAL HIP 2-3VIEWS CLINICAL HISTORY: FALL, L HIP PAIN trauma. Pain. COMPARISON: None. DISCUSSION: Subcapital fracture left hip. Mild superior migration left femoral shaft. No evidence for acetabular protrusion. Degenerative change of all remaining osseous structures. Moderate soft tissue edema IMPRESSION: Subcapital fracture left hip with moderate superior migration left femoral shaft. The above report was generated using voice recognition software. It may contain grammatical, syntax or spelling errors. Electronically signed by: Sudarshan Sun M.D. 08/17/2017 10:21 AM Dictated Date/Time: 08/17/2017 10:19 AM
--- NOTE | 2017-08-17 10:27 | DIAGNOSTIC IMAGING REPORT ---
CHEST ONE VIEW PORTABLE CLINICAL HISTORY: PREOP preoperative evaluation COMPARISON STUDY: 07/17/2017 FINDINGS: Mild stable cardiomegaly. Slight prominence of pulmonary vasculature unchanged to slightly improved from the prior exam. Diaphragms are smooth. There are no focal infiltrates. IMPRESSION: Mild prominence of pulmonary vasculature. Otherwise negative study. The above report was generated using voice recognition software. It may contain grammatical, syntax or spelling errors. Electronically signed by: Sudarshan Sun M.D. 08/17/2017 10:26 AM Dictated Date/Time: 08/17/2017 10:23 AM
[2017-08-17 10:28] LABS: BUN/CREATININE RATIO 28.9 (10-20); CALCIUM 8.8 mg/dl (8.5-10.1); CREATININE 1.28 mg/dl (0.60-1.20); POTASSIUM 3.9 mmol/L (3.5-5.1)
[2017-08-17] MEDS ORDERED: MOML PO (10:43)
[2017-08-17] MEDS ORDERED: ONDANSETRON INJ 2 MG/ML 2 ML VIAL IV STA (10:43)
[2017-08-17] MEDS ORDERED: GLGKIT IM (10:43)
[2017-08-17] MEDS ORDERED: ACET-1311 PO (10:43)
[2017-08-17] MEDS ORDERED: FENTANYL CITRATE INJ 50 MCG/1 ML 2 ML VIAL IV STA (10:43)
[2017-08-17] MEDS ORDERED: AMLO2.5T PO (10:43)
[2017-08-17] MEDS ORDERED: CTP/1 PO (10:43)
[2017-08-17] MEDS ORDERED: OXYC-57 PO (10:43)
[2017-08-17] MEDS ORDERED: LSNP/30 PO (10:43)
[2017-08-17] MEDS ORDERED: METO25TA56 PO (10:43)
[2017-08-17] MEDS ORDERED: ACET325T96 PO (10:43)
[2017-08-17] MEDS ORDERED: SODI1ENE RE (10:43)
[2017-08-17] MEDS ORDERED: BISA-16 PO (10:43)
[2017-08-17] MEDS ORDERED: FENTANYL CITRATE INJ 50 MCG/1 ML 2 ML VIAL IV PRN (10:45)
[2017-08-17 10:51] LABS: URINE APPEARANCE CLEAR (CLEAR); URINE BILIRUBIN NEG (NEG); URINE COLOR YELLOW; URINE NITRITE NEG (NEG); URINE PH 6.5 (4.5-7.5); URINE SPECIFIC GRAVITY 1.017 (1.000-1.030); UROBILINOGEN NEG (NEG); ZZURINE CULT IF INDIC CATH NO
[2017-08-17 11:01] LABS: MANUAL MICROSCOPIC REQUIRED? NO; REVIEW REQ? NO
--- NOTE | 2017-08-17 11:04 | EMERGENCY ROOM VISIT NOTE ---
History First contact with patient: 09:17 Chief Complaint: HIP PAIN Stated Complaint: HIP PAIN History of Present Illness Patient is an 87-year-old white female with extensive past medical history including hypertension, atrial fibrillation, dyslipidemia, among other medical problems, who presents the emergency department by ambulance [facility] her [facility] for evaluation of left hip pain after a fall this morning. Patient reports that she fell while going to the bathroom this morning. Per nursing staff at the facility, she fell out of bed. Nonetheless, the patient is complaining of pain in the left hip radiating to the groin and buttocks slightly. She did not attempt to ambulate. She denies any other complaints, including head injury or head pain, lightheadedness or dizziness. She denies any headache or neck pain. No chest pain, palpitations or shortness of breath. No rib pain. She rates her discomfort a 7/10. She received 25 g of fentanyl en route in the ambulance, with minimal relief. Review of Systems Review of systems as per HPI. All other systems reviewed were negative. 10 systems reviewed. Past Medical/Surgical History Medical Problems: (1) Acute kidney injury (2) Altered mental status (3) Cerebrovascular accident involving right middle cerebral artery territory (4) Hyperlexia (5) Hypertension (6) Osteoporosis (7) Rhabdomyolysis Electronic medical records are reviewed and summarized as above/below. See Problem List. Family History Patient reports no known family medical history. Social History Smoking Status: Current Every Day Smoker Alcohol Use: none Drug Use: none Marital Status: Housing Status: [facility] Occupation Status: retired Current/Historical Medications Scheduled Amlodipine (Norvasc), 2.5 MG PO DAILY Atorvastatin (Atorvastatin Calcium), 20 MG PO HS Digoxin (Digoxin), 0.125 MG PO MoWeFr@1600 Doxycycline Hyclate (Doxycycline Hyclate), 100 MG PO BID Lisinopril (Zestril), 30 MG PO DAILY Metoprolol Tartrate (Lopressor) (Lopressor), 12.5 MG PO BID Multivitamin (Multivitamin), 1 TAB PO DAILY Rivaroxaban (Xarelto), 15 MG PO QDD Scheduled PRN Acetaminophen (Tylenol), 650 MG PO Q6 PRN for Fever Acetaminophen Tab (Tylenol), 325 MG PO Q6 PRN for Pain Bisacodyl (Dulcolax), 1 SUPP PO UD PRN for Constipation Clonidine Hcl (Catapres), 0.1 MG PO DAILY PRN for Blood Pressure Glucagon (Glucagon Emergency Kit), 1 APPL IM UD PRN for HYPOGLYCEMIA PROTOCOL Ipratropium-Albuterol (Combivent Respimat), 1 PUFFS INH QID PRN for cough/wheeze Magnesium Hydroxide (Milk Of Magnesia), 30 ML PO Q72H PRN for Constipation Oxycodone/Acetaminophen 5MG/325MG (Percocet 5MG/325MG), 1 TABLET PO Q4H PRN for Pain Sodium Phosphates (Fleet Enema Six Pack), 1 APPLN RE UD PRN for Constipation Physical Exam Vital Signs Date Time Temp Pulse Resp B/P (MAP) Pulse Ox O2 Delivery O2 Flow Rate FiO2 08/17/17 10:47 61 20 203/77 96 Nasal Cannula 2.0 08/17/17 09:22 96 Nasal Cannula 2.0 08/17/17 09:21 59 08/17/17 09:09 36.7 59 20 179/78 88 Room Air Physical Exam GENERAL: Patient is an elderly, otherwise well-appearing 87-year-old white female who is awake and alert and in no acute distress. HEENT: Head - normocephalic and atraumatic. Pupils are equal, round, and reactive to light. Extraocular eye muscles are intact and sclera are anicteric. Ears - bilaterally patent canals with no evidence of hemotympanum. Nose - moist nasal mucosa without evidence of trauma or discharge. Mouth - moist buccal mucosa with no trauma to the teeth or signs of malocclusion. Neck: The neck is supple and there is no pain to palpation over the posterior cervical spine and no obvious step-offs or deformities. There is no JVD or tracheal deviation. Chest: There are no signs of deformities, contusions or abrasions to the chest wall. There is no obvious crepitus or paradoxical chest rise. Heart: Regular rate, and regular rhythm. Lungs: Breath sounds equal and clear to auscultation without wheezes, rales, or rhonchi heard. Abdomen: Soft, completely nontender, nondistended, with good bowel sounds. There is no sign of trauma such as contusions, abrasions or penetrations. There are no palpable pulsatile masses or hepatosplenomegaly. There is no guarding, rigidity, or rebound noted. Extremities: Examination of the left hip does not note any outward signs of trauma, no ecchymosis or abrasions. No hematoma. She is tenderness over the greater trochanter and in the left groin. Left lower extremity shortened and internally rotated. Hip range of motion is not assessed. The left lower extremity is neurovascularly intact. No other obvious trauma, deformities, contusions, or edema. There are easily palpable peripheral pulses. Neuro: The patient is awake and alert and easily able to follow commands. Otherwise, neuro exam is unremarkable. Medical Decision & Procedures ER Provider Diagnostic Interpretation: L PELVIS/UNILATERAL HIP 2-3VIEWS CLINICAL HISTORY: FALL, L HIP PAIN trauma. Pain. COMPARISON: None. DISCUSSION: Subcapital fracture left hip. Mild superior migration left femoral shaft. No evidence for acetabular protrusion. Degenerative change of all remaining osseous structures. Moderate soft tissue edema IMPRESSION: Subcapital fracture left hip with moderate superior migration left femoral shaft. CHEST ONE VIEW PORTABLE CLINICAL HISTORY: PREOP preoperative evaluation COMPARISON STUDY: 07/17/2017 FINDINGS: Mild stable cardiomegaly. Slight prominence of pulmonary vasculature unchanged to slightly improved from the prior exam. Diaphragms are smooth. There are no focal infiltrates. IMPRESSION: Mild prominence of pulmonary vasculature. Otherwise negative study. Laboratory Results 08/17/17 10:00 Red Blood Count 4.36, Mean Corpuscular Volume 91.3, Mean Corpuscular Hemoglobin 30.7, Mean Corpuscular Hemoglobin Concent 33.7, Mean Platelet Volume 9.9, Neutrophils (%) (Auto) 84.3, Lymphocytes (%) (Auto) 8.6, Monocytes (%) (Auto) 6.1, Eosinophils (%) (Auto) 0.5, Basophils (%) (Auto) 0.2, Neutrophils # (Auto) 9.03, Lymphocytes # (Auto) 0.92, Monocytes # (Auto) 0.65, Eosinophils # (Auto) 0.05, Basophils # (Auto) 0.02 08/17/17 10:00 Test 08/17/17 10:00 08/17/17 10:40 08/17/17 11:37 White Blood Count 10.70 K/uL (4.8-10.8) Red Blood Count 4.36 M/uL (4.2-5.4) Hemoglobin 13.4 g/dL (12.0-16.0) Hematocrit 39.8 % (37-47) Mean Corpuscular Volume 91.3 fL (80-100) Mean Corpuscular Hemoglobin 30.7 pg (25-34) Mean Corpuscular Hemoglobin Concent 33.7 g/dl (32-36) Platelet Count 196 K/uL (130-400) Mean Platelet Volume 9.9 fL (7.4-10.4) Neutrophils (%) (Auto) 84.3 % Lymphocytes (%) (Auto) 8.6 % Monocytes (%) (Auto) 6.1 % Eosinophils (%) (Auto) 0.5 % Basophils (%) (Auto) 0.2 % Neutrophils # (Auto) 9.03 K/uL (1.4-6.5) Lymphocytes # (Auto) 0.92 K/uL (1.2-3.4) Monocytes # (Auto) 0.65 K/uL (0.11-0.59) Eosinophils # (Auto) 0.05 K/uL (0-0.5) Basophils # (Auto) 0.02 K/uL (0-0.2) RDW Standard Deviation 48.6 fL (36.4-46.3) RDW Coefficient of Variation 14.6 % (11.5-14.5) Immature Granulocyte % (Auto) 0.3 % Immature Granulocyte # (Auto) 0.03 K/uL (0.00-0.02) Prothrombin Time 12.6 SECONDS (9.0-12.0) Prothromb Time International Ratio 1.2 (0.9-1.1) Activated Partial Thromboplast Time 27.5 SECONDS (21.0-31.0) Partial Thromboplastin Ratio 1.1 Anion Gap 5.0 mmol/L (3-11) Est Creatinine Clear Calc Drug Dose 21.1 ml/min Estimated GFR () 43.5 Estimated GFR (Non- 37.6 BUN/Creatinine Ratio 28.9 (10-20) Calcium Level 8.8 mg/dl (8.5-10.1) Urine Color YELLOW Urine Appearance CLEAR (CLEAR) Urine pH 6.5 (4.5-7.5) Urine Specific [place] 1.017 (1.000-1.030) Urine Protein NEG (NEG) Urine Glucose (UA) NEG (NEG) Urine Ketones NEG (NEG) Urine Occult Blood NEG (NEG) Urine Nitrite NEG (NEG) Urine Bilirubin NEG (NEG) Urine Urobilinogen NEG (NEG) Urine Leukocyte Esterase NEG (NEG) Troponin I < 0.015 ng/ml (0-0.045) Medications Administered Medications (Trade) Dose Ordered Sig/Paco Route Start Time Stop Time Status Last Admin Dose Admin Fentanyl Citrate (Fentanyl Inj) 50 mcg NOW STAT IV 08/17/17 10:43 08/17/17 10:44 DC 08/17/17 10:53 50 MCG Ondansetron HCl (Zofran Inj) 4 mg NOW STAT IV 08/17/17 10:43 08/17/17 10:44 DC 08/17/17 10:54 4 MG ED Course The patient was seen and examined as above. Her old records are reviewed, including her recent hospitalization. IV lock was initiated. ED hip fracture protocol orders were performed. The patient did request something for pain and was medicated with fentanyl 50 g IV and Zofran 4 mg IV. AP pelvis with left hip x-ray noted a subcapital left hip fracture. Laboratory studies, EKG and chest x-ray were performed for preoperative medical clearance. All laboratory and diagnostic imaging studies were reviewed with attending physician. Labs all appear stable. She is not anemic. INR is 1.2. Her creatinine is up slightly at 1.28, it was elevated at discharge from her recent hospitalization and appears stable. Creatinine had been normal previously. Urinalysis is clear. EKG does not demonstrate any acute ischemic changes. Troponin is negative 1. X-ray findings were discussed with the patient. She was reviewed with the [facility] Hospitalist Service and with Dr. Do with [facility]. She will be admitted to the medical service pending clearance and surgical intervention. Patient is an 87-year-old white female brought to the emergency department for evaluation of left hip pain after what appears to be a mechanical fall. Injury appears to be isolated to the left hip. I do not suspect closed head injury or acute intracranial bleed. Injury does not appear consistent with arrhythmia, syncope or seizure. Differential diagnoses include hip/femur/pelvic fracture, contusion, hip dislocation, lumbar fracture, rib injury, among others. Medical Decision See ED Course. Medication Reconcilliation Current Medication List: was personally reviewed by me Blood Pressure Screening Patient's blood pressure: Elevated blood pressure Blood pressure disposition: Referred to PCP Impression Primary Impression: Hip fracture, left Departure Information Dispostion Admitted as an inpatient Referrals Anusha Cheek (PCP) Patient Instructions [facility]
[2017-08-17] MEDS ORDERED: INFLUENZA VIRUS QUAD VACCINE 0.5 ML SYR IM. ONE (13:15)
[2017-08-17] MEDS ORDERED: PNEUMOCOCCAL POLYSACCHARIDES 25 MCG/0.5 ML VIAL/SYR IM. ONE (13:15)
--- NOTE | 2017-08-17 13:15 | History and Physical ---
History & Physical Date & Time of Service: Aug 17, 2017 at 13:15 Chief Complaint: Hip Pain Primary Care Physician: Anusha Cheek History of Present Illness 87 yo female who presents to the hospital with hip pain. Patient has multiple episodes of falls in the past. There was concern about her bradycardia being a cause of the falls. She presents today with another fall, which as per ER, it was a mechanical fall. However, patient is a poor historian, and she is unable to describe event. She does however state that she did not pass out when she fell. She was just standing and lost strength in her affected left leg and fell. Patient reports that she was unable to get up and called for help. Patient was brought to this hospital and was diagnosed with a left hip fracture. Past Medical/Surgical History Medical Problems: (1) Hyperlexia Status: Chronic (2) Hypertension Status: Chronic Family History Patient reports no known family medical history. Social History Smoking Status: Current Every Day Smoker Drug Use: none Marital Status: Housing status: lives with family Occupational Status: retired Immunizations History of Influenza Vaccine: Yes Influenza Vaccine Date: Aug 02, 2008 History of Tetanus Vaccine?: Unknown History of Pneumococcal: No History of Hepatitis B Vaccine: No Multi-Drug Resistant Organisms History of MDRO: No Allergies Coded Allergies: Morphine (Verified Allergy, Unknown, hallucinations, 08/17/17) Home Medications Scheduled Amlodipine (Norvasc), 2.5 MG PO DAILY Atorvastatin (Atorvastatin Calcium), 20 MG PO HS Digoxin (Digoxin), 0.125 MG PO MoWeFr@1600 Doxycycline Hyclate (Doxycycline Hyclate), 100 MG PO BID Lisinopril (Zestril), 30 MG PO DAILY Metoprolol Tartrate (Lopressor) (Lopressor), 12.5 MG PO BID Multivitamin (Multivitamin), 1 TAB PO DAILY Rivaroxaban (Xarelto), 15 MG PO QDD Scheduled PRN Acetaminophen (Tylenol), 650 MG PO Q6 PRN for Fever Acetaminophen Tab (Tylenol), 325 MG PO Q6 PRN for Pain Bisacodyl (Dulcolax), 1 SUPP PO UD PRN for Constipation Clonidine Hcl (Catapres), 0.1 MG PO DAILY PRN for Blood Pressure Glucagon (Glucagon Emergency Kit), 1 APPL IM UD PRN for HYPOGLYCEMIA PROTOCOL Ipratropium-Albuterol (Combivent Respimat), 1 PUFFS INH QID PRN for cough/wheeze Magnesium Hydroxide (Milk Of Magnesia), 30 ML PO Q72H PRN for Constipation Oxycodone/Acetaminophen 5MG/325MG (Percocet 5MG/325MG), 1 TABLET PO Q4H PRN for Pain Sodium Phosphates (Fleet Enema Six Pack), 1 APPLN RE UD PRN for Constipation Review of Systems Constitutional: No fever, No chills Respiratory: No cough, No sputum Cardiovascular: No chest pain, No orthopnea Abdomen: No pain, No nausea Psychiatric: No depression symptoms, No anhedonism Endocrine: + fatigue Integumentary: No rash Physical Exam Vital Signs Date Time Temp Pulse Resp B/P (MAP) Pulse Ox O2 Delivery O2 Flow Rate FiO2 08/17/17 13:06 65 08/17/17 10:47 61 20 203/77 96 Nasal Cannula 2.0 08/17/17 09:22 96 Nasal Cannula 2.0 08/17/17 09:21 59 08/17/17 09:09 36.7 59 20 179/78 88 Room Air General Appearance: WD/WN, no apparent distress Head: normocephalic, atraumatic Eyes: normal inspection Neck: supple, no adenopathy, no JVD Respiratory/Chest: chest non-tender, lungs clear Cardiovascular: regular rate, rhythm, no JVD, + systolic murmur Abdomen/GI: normal bowel sounds, non tender, soft Extremities/Musculoskelatal: + pertinent finding (pain in left hip, patient was guarding affected hip. Unable to perform external rotation due to pain) Skin: normal color Lymphatic: no adenopathy Diagnostics Laboratory Results Results Past 24 Hours Test 08/17/17 10:00 08/17/17 10:40 08/17/17 11:37 Range/Units White Blood Count 10.70 4.8-10.8 K/uL Red Blood Count 4.36 4.2-5.4 M/uL Hemoglobin 13.4 12.0-16.0 g/dL Hematocrit 39.8 37-47 % Mean Corpuscular Volume 91.3 80-100 fL Mean Corpuscular Hemoglobin 30.7 25-34 pg Mean Corpuscular Hemoglobin Concent 33.7 32-36 g/dl Platelet Count 196 130-400 K/uL Mean Platelet Volume 9.9 7.4-10.4 fL Neutrophils (%) (Auto) 84.3 % Lymphocytes (%) (Auto) 8.6 % Monocytes (%) (Auto) 6.1 % Eosinophils (%) (Auto) 0.5 % Basophils (%) (Auto) 0.2 % Neutrophils # (Auto) 9.03 1.4-6.5 K/uL Lymphocytes # (Auto) 0.92 1.2-3.4 K/uL Monocytes # (Auto) 0.65 0.11-0.59 K/uL Eosinophils # (Auto) 0.05 0-0.5 K/uL Basophils # (Auto) 0.02 0-0.2 K/uL RDW Standard Deviation 48.6 36.4-46.3 fL RDW Coefficient of Variation 14.6 11.5-14.5 % Immature Granulocyte % (Auto) 0.3 % Immature Granulocyte # (Auto) 0.03 0.00-0.02 K/uL Prothrombin Time 12.6 9.0-12.0 SECONDS Prothromb Time International Ratio 1.2 0.9-1.1 Activated Partial Thromboplast Time 27.5 21.0-31.0 SECONDS Partial Thromboplastin Ratio 1.1 Sodium Level 136 136-145 mmol/L Potassium Level 3.9 3.5-5.1 mmol/L Chloride Level 103 98-107 mmol/L Carbon Dioxide Level 28 21-32 mmol/L Anion Gap 5.0 3-11 mmol/L Blood Urea Nitrogen 37 7-18 mg/dl Creatinine 1.28 0.60-1.20 mg/dl Est Creatinine Clear Calc Drug Dose 21.1 ml/min Estimated GFR () 43.5 Estimated GFR (Non- 37.6 BUN/Creatinine Ratio 28.9 10-20 Random Glucose 104 70-99 mg/dl Calcium Level 8.8 8.5-10.1 mg/dl Urine Color YELLOW Urine Appearance CLEAR CLEAR Urine pH 6.5 4.5-7.5 Urine Specific [place] 1.017 1.000-1.030 Urine Protein NEG NEG Urine Glucose (UA) NEG NEG Urine Ketones NEG NEG Urine Occult Blood NEG NEG Urine Nitrite NEG NEG Urine Bilirubin NEG NEG Urine Urobilinogen NEG NEG Urine Leukocyte Esterase NEG NEG Troponin I < 0.015 0-0.045 ng/ml Diagnostic Radiology L PELVIS/UNILATERAL HIP 2-3VIEWS CLINICAL HISTORY: FALL, L HIP PAIN trauma. Pain. COMPARISON: None. DISCUSSION: Subcapital fracture left hip. Mild superior migration left femoral shaft. No evidence for acetabular protrusion. Degenerative change of all remaining osseous structures. Moderate soft tissue edema IMPRESSION: Subcapital fracture left hip with moderate superior migration left femoral shaft. The above report was generated using voice recognition software. It may contain grammatical, syntax or spelling errors. Electronically signed by: Sudarshan Sun M.D. 08/17/2017 10:21 AM Dictated Date/Time: 08/17/2017 10:19 AM CHEST ONE VIEW PORTABLE CLINICAL HISTORY: PREOP preoperative evaluation COMPARISON STUDY: 07/17/2017 FINDINGS: Mild stable cardiomegaly. Slight prominence of pulmonary vasculature unchanged to slightly improved from the prior exam. Diaphragms are smooth. There are no focal infiltrates. IMPRESSION: Mild prominence of pulmonary vasculature. Otherwise negative study. Impression Assessment and Plan Left hip fracture in an 87 year old female with history of stroke is admitted under medical service for medical clearance for surgery. Left hip fracture Admit under Tele Consulted Cardiology D/W Dr. Loya who knows patient well. Patient is an intermediate risk patient going for an intermediate risk procedure , given history of stroke. The benefits of the procedure likely outweigh the risks as her quality of life will be significantly decreased without repairing this fracture. H/O paroxysmal a. fib There was a discussion about stopping her xarelto given multiple falls. will hold todays dose given that patient will likely require surgery. Postoperatively, may continue with anticoagulation for dvt prophylaxis for short term. Once risk of dvt from surgery has decreased, will stop anticoagulation. Will continue with beta carlos alberto, will stop digoxin as there was also discussion to stop this medicine in the outpatient clinic, given the bradycardia. 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 as stated above will hold dig. will also consult cardio. HTN consult home meds Dyslipidemia will continue home meds ASA Classification: ASA Class II Level of Care Telemetry Advanced Directives Existing Advance Directive: No Existing Living Will: No Existing Power of Assistant Professor Surgical Technology: No Existing Health Care Proxy: No Resuscitation Status FULL RESUSCITATION VTE Prophylaxis VTE Risk Assessment Done? Y/N: Yes Risk Level: Moderate Given or contraindicated: Other Anticoagulation (on xarelto, held for surgery) , [facility] Consult Lives in [facility]
[2017-08-17] MEDS ORDERED: MAGNESIUM HYDROXIDE SUSP 30 ML UDC PO PRN (14:15)
[2017-08-17] MEDS ORDERED: IPRATROPIUM BROMIDE/ALBUTEROL respimat INH INH PRN (14:15)
--- NOTE | 2017-08-17 15:12 | EMERGENCY ROOM VISIT NOTE ---
ED Visit Note First contact with patient: 09:17 I have personally evaluated this patient examined her and reviewed the pertinent labs and data. I have discussed the case with Lisbeth Torres, the physician paralegal assistant and agree with the plan. Please refer to the PA note. This patient suffered a mechanical fall. She has left hip pain on exam is shortened and rotated. His pain with movement she has good distal pulses she denies any other complaints. X-rays confirm that she does have a hip fracture. She will need to be admitted for further treatment and evaluation.
[2017-08-17 15:45] VITALS: BP 214/83; PULSE 65; TEMP 36.6; O2SAT 97; Ht 149.9 cm; Wt 41.5 kg
[2017-08-17] MEDS ORDERED: INFLUENZA VACCINE HIGH DOSE 65+ 0.5 ML SYR IM. ONE (16:00)
[2017-08-17] MEDS ORDERED: INFLUENZA ADMINISTRATION CHARGE ONE (16:00)
[2017-08-17] MEDS ORDERED: PNEUMOCOCCAL ADMINISTRATION CHARGE ONE (16:00)
[2017-08-17] MEDS ORDERED: LABETALOL HCL IV 5 MG/ML 20ML IV STA (16:28)
[2017-08-17] MEDS ORDERED: NURSING VERBAL MED ORDER ONE ×2 (16:30→17:00)
[2017-08-17] MEDS ORDERED: MoRPHine SULFATE 4 MG/ML 1 ML CARP\\VIAL IV ONE (16:45)
[2017-08-17] MEDS: FENTANYL 50 MCG/HR TDSY TD SCH (16:58)
[2017-08-17] MEDS: FENTANYL PATCH REMOVE & WASTE SCH (16:59)
[2017-08-17 17:15] VITALS: BP 175/91; PULSE 67
[2017-08-17 20:22] VITALS: BP 128/68; PULSE 72; TEMP 36.5; O2SAT 91
[2017-08-17] MEDS: ATORVASTATIN 20 MG TAB PO SCH (20:57)
[2017-08-17] MEDS: METOPROLOL TARTRATE 25 MG TAB PO SCH (20:57)
[2017-08-17 21:15] VITALS: O2SAT 91
[2017-08-18] VITALS (10 sets, daily range): BP systolic 139–181; BP diastolic 70–80; PULSE 52–75; TEMP 36.6–37.1; O2SAT 90–98
[2017-08-18] MEDS: CHECK FENTANYL PATCH PLACEMENT SCH ×3 (00:19→15:33)
[2017-08-18] MEDS: AMLODIPINE BESYLATE 5 MG TAB PO SCH (08:02)
--- NOTE | 2017-08-18 08:02 | ORTHOPEDIC CONSULTATION REPORT ---
DATE OF CONSULTATION: 08/18/2017 CHIEF COMPLAINT: Left hip pain. HISTORY OF PRESENT ILLNESS: The patient is an 87-year-old female resident of [facility] who suffered a fall yesterday. She was brought to [facility] ED by ambulance for evaluation. The patient was primarily complaining of left hip pain. X-rays revealed a left hip fracture. The patient has been admitted by the medical service and orthopedics has been consulted for management of her hip fracture. PAST MEDICAL HISTORY: As noted in her ED notes, significant for CVA and regular use of Xarelto daily. Otherwise, the patient denies any significant heart disease, diabetes, pulmonary issues, or history of DVT. Currently, she is lying in bed, appears fairly comfortable. She appears oriented and can answer questions appropriately, although she also appears mildly confused. She denies any head, neck or back pain. She denies any chest pain or shortness of breath. Her toes are mobile and neurovascularly intact. Her lower extremity is internally rotated. X-RAYS: X-rays were reviewed. She has a displaced subcapital femoral neck fracture on the left side. ASSESSMENT: Displaced subcapital femoral neck fracture, left hip. PLAN: The above was discussed with the patient. She understands that she is going to require some surgery. She has a son and a daughter locally. Per the chart, her son, Zeus, is power of insurance sales producer and his number is [phone]. We will make her n.p.o. and once the patient is cleared by the medical service, we will proceed with left hip bipolar hemiarthroplasty as indicated.
[2017-08-18] MEDS: LISINOPRIL 10 MG TAB PO SCH (08:03)
[2017-08-18] MEDS: METOPROLOL TARTRATE 25 MG TAB PO SCH ×2 (08:03→20:20)
[2017-08-18] MEDS ORDERED: NURSING VERBAL MED ORDER ONE (09:30)
[2017-08-18] MEDS: SODIUM CHLORIDE 0.9% 1000ML 1,000 ML IV SCH (10:07)
--- NOTE | 2017-08-18 10:51 | Progress Note ---
Subjective Date of Service: Aug 18, 2017. Subjective Pt evaluation today including: conversation w/ patient, conversation w/ family , physical exam, chart review, conversation w/ travel service consultant, review of inpatient medication list Feeling okay, no pain without move, Problem List Medical Problems: (1) Acute CVA (cerebrovascular accident) Status: Acute (2) Ambulatory dysfunction Status: Acute (3) Elevated troponin Status: Acute (4) Frequent falls Status: Acute (5) Generalized weakness Status: Acute (6) Head injury Status: Acute (7) Hip fracture, left Status: Acute (8) Hypokalemia Status: Acute (9) Scabies Status: Acute (10) Scalp laceration Status: Acute Review of Systems Constitutional: + weakness, + fatigue, No fever, No chills, No sweats, No weight loss, No problem reported Eyes: No worsening of vision, No eye pain, No redness, No discharge, No diplopia ENT: No hearing loss, No unusual epistaxis, No nasal symptoms, No sore throat, No tinnitus, No dental problems, No trouble swallowing Respiratory: No cough, No sputum, No wheezing, No shortness of breath, No dyspnea on exertion, No dyspnea at rest, No hemoptysis Cardiac: No chest pain, No orthopnea, No PND, No edema, No claudication, No palpitations Abdomen: No pain, No nausea, No vomiting, No diarrhea, No constipation Musculoskeletal: + see HPI, + joint pain Female : No dysuria, No urinary frequency, No hematuria, No incontinence, No abnormal vaginal bleeding, No vaginal discharge Neurologic: No memory loss, No paralysis, No weakness, No numbness/tingling, No vertigo, No balance problems Psychiatric: No depression symptoms, No anhedonism, No anxiety, No insomnia, No substance abuse Heme: No abnormal bleeding/bruising, No clotting problems, No swollen lymph nodes, No night sweats Endo: No fatigue, No excessive thirst, No excessive urination Skin: No rash, No itch, No new/changing skin lesions, No color change, No bleeding Objective Vital Signs Date Time Temp Pulse Resp B/P (MAP) Pulse Ox O2 Delivery O2 Flow Rate FiO2 08/18/17 10:27 Nasal Cannula 2.0 08/18/17 09:38 156/76 (102) 08/18/17 08:04 37.1 72 21 181/70 (107) 90 Nasal Cannula 2.0 08/18/17 08:00 Nasal Cannula 2.0 08/18/17 04:00 Room Air 08/18/17 03:47 36.9 58 17 151/74 (99) 92 Nasal Cannula 2.0 08/18/17 00:13 36.7 60 16 168/80 (109) 92 Room Air 08/18/17 00:00 Room Air 08/17/17 21:15 91 Room Air 2.0 08/17/17 20:22 36.5 72 18 128/68 (88) 91 Room Air 08/17/17 17:15 67 175/91 (119) 08/17/17 15:45 36.6 65 20 214/83 97 Nasal Cannula 2.0 08/17/17 15:03 62 20 155/70 97 08/17/17 13:30 62 20 164/73 97 Nasal Cannula 2.0 08/17/17 13:06 65 08/17/17 12:00 66 20 161/67 99 Room Air 08/17/17 10:47 61 20 203/77 96 Nasal Cannula 2.0 Physical Exam General Appearance: WD/WN, no apparent distress, + thin Eyes: normal inspection, PERRL, EOMI, sclerae normal ENT: normal ENT inspection, hearing grossly normal, pharynx normal Neck: supple, no adenopathy, thyroid normal, no JVD, no carotid bruits, trachea midline Respiratory/Chest: chest non-tender, lungs clear, normal breath sounds, no respiratory distress, no accessory muscle use Cardiovascular: regular rate, rhythm, no edema, no gallop, no JVD, no murmur Abdomen: normal bowel sounds, non tender, soft, no organomegaly, no pulsatile mass Extremities: normal range of motion, non-tender, normal inspection, no pedal edema, no calf tenderness, normal capillary refill, pelvis stable, + pertinent finding (left lower extremity is shorter and inner totated) Neurologic/Psychiatric: chief diversity officer II-XII nml as tested, no motor/sensory deficits, alert, normal mood/affect, oriented x 3 Skin: normal color, warm/dry, no rash Lymphatic: no adenopathy Laboratory Results Last 24 Hours Test 08/17/17 10:40 08/17/17 11:37 Urine Color YELLOW Urine Appearance CLEAR Urine pH 6.5 Urine Specific [place] 1.017 Urine Protein NEG Urine Glucose (UA) NEG Urine Ketones NEG Urine Occult Blood NEG Urine Nitrite NEG Urine Bilirubin NEG Urine Urobilinogen NEG Urine Leukocyte Esterase NEG Troponin I < 0.015 ng/ml Assessment and Plan 87 year old female with history of stroke admitted on 08/17/2017 with Left hip fracture, has been stable in telemetry, orthostatic consulted is an intermediate risk patient going for an intermediate risk procedure because of y of stroke. I agreed benefits of the procedure likely outweigh the risks as her quality of life will be significantly decreased without repairing this fracture. H/O paroxysmal a. fib Xarelto need to be discontinued given multiple falls after discussion Postoperatively, may continue with anticoagulation for dvt prophylaxis for short term. Hours of stroke prevention and DVT prophylaxis, will be discussed with cardiology and orthopedic continue with beta carlos alberto, will stop digoxin H/O bradycardia, likely secondary to meds. as stated above will hold dig. HTN Dyslipidemia Continue home meds Breast able to come to [facility] talked to daughter Afia, discussed risks and benefits , confirmed pt is full code GI and DVT prophylaxis is covered Continued [facility] stay due to: home environment unsafe for pt Discharge planning: uncertain
--- NOTE | 2017-08-18 11:28 | Anesthesiology Progress Note ---
Anesthesia Progress Note Date of Service Aug 18, 2017. Progress Notes Ms. Rogers is an 87 year old female who fell and sustained a left hip fracture. She is allergic to morphine (delerium). PSH for appy without anesthesia problems. Of note, patient on xarelto as an outpatient (for A fib and recent CVA ), last dose per patient was 08/17/17. PMH significant for SOB with activity, A fib, HTN, bradycardia, GERD, CVA (February 2017, denied unilateral weakness but does have ambulatory problems 2/2 generalized weakness and instability), CKD. She is a current every day smoker. EKG shows NSR with HR of 62 with LVH (EKG from Jul 2017 showed A fib). Labs WNL with troponins of less than 0.015. Patient had a faint DARIANA, MP 2, decreased neck extension with upper dentures and very poor/ missing teeth of her bottom row of teeth. Patient was scheduled for surgery on 08/18/17 but patient had eggs in the morning and surgeon decided to delay surgery until the next day. She was consented for general anesthesia given her xarelto history and she agreed to the plan. All questions were answered. Instructed her to be NPO after midnight.
--- NOTE | 2017-08-18 14:12 | Cardiology Consultation ---
Cardiology Consultation Date of Consultation: Aug 18, 2017. Requesting Physician: Jazmyne Reason for Consultation: Atrial fibrillation Pt evaluation today including: conversation w/ patient, conversation w/ family , physical exam, chart review, lab review, review of studies, conversation w/ attending History of Present Illness Patient is an 87-year-old woman with a history of paroxysmal atrial fibrillation who suffered a hip fracture yesterday. According to the patient she was ambulatory at her assisted living facility and waiting for the bathroom. It seems that she fell while waiting for the bathroom. She is not clear regarding the mechanism of the fall. She knew that she was falling and she remembers hitting the ground. She did not report symptoms consistent with a loss of consciousness. She remembers having pain after falling. She generally ambulates with a walker and it is unclear if she was using her walker at this time. She has suffered several falls over the recent months due to gait instability. At the time of this interview the patient complains left hip discomfort. Also some back pain at that site. She denies any sense of palpitation. She is not describing any chest pain. She denies any difficulty with breathing. She denies symptoms of dizziness or lightheadedness. Past Medical/Surgical History Cerebral vascular accident Hyperlipidemia Hypertension Paroxysmal atrial fibrillation Past surgical history: Right nephrectomy Family History Patient reports no known family medical history. Noncontributory given the advanced age Social History Smoking Status: Current Every Day Smoker History of Alcohol Use: No Currently a resident at [facility] Review of Systems Respiratory: No cough, No sputum, No wheezing, No shortness of breath, No dyspnea on exertion, No dyspnea at rest, No hemoptysis Cardiac: No chest pain, No orthopnea, No PND, No edema, No claudication, No palpitations Patient has been weak lately. She has been undergoing physical therapy. All Other Systems: Reviewed and Negative Allergies Coded Allergies: Morphine (Verified Allergy, Unknown, hallucinations, 08/17/17) Medications Current Inpatient Medications Medications (Trade) Dose Ordered Sig/Paco Route Start Time Stop Time Status Last Admin Dose Admin Amlodipine Besylate (Norvasc Tab) 2.5 mg DAILY PO 08/18/17 09:00 09/17/17 08:59 08/18/17 08:02 2.5 MG Atorvastatin Calcium (Lipitor Tab) 20 mg HS PO 08/17/17 21:00 09/16/17 20:59 08/17/17 20:57 20 MG Albuterol/ Ipratropium (Combivent Respimat Inh) 1 puffs QID PRN INH 08/17/17 14:15 09/16/17 14:14 Lisinopril (Zestril Tab) 30 mg DAILY PO 08/18/17 09:00 09/17/17 08:59 08/18/17 08:03 30 MG Magnesium Hydroxide (Milk Of Magnesia Susp) 30 ml Q72H PRN PO 08/17/17 14:15 09/16/17 14:14 Metoprolol Tartrate (Lopressor Tab) 12.5 mg BID PO 08/17/17 21:00 09/16/17 20:59 08/18/17 08:03 12.5 MG Fentanyl (Duragesic Patch) 50 mcg Q3D@1700 TD 08/17/17 17:00 08/31/17 16:59 08/17/17 16:58 50 MCG Miscellaneous (Fentanyl Patch Remove & Waste) 1 ea Q3D@1659 N/A 08/17/17 16:59 09/16/17 16:58 Miscellaneous Information (Check Fentanyl Patch Placement) 1 ea QS N/A 08/18/17 00:00 09/17/17 00:00 08/18/17 08:02 1 EA Cefazolin Sodium (Cefazolin 1000mg Iv Push) 1,000 mg PREOP ONCE IV 08/19/17 06:00 08/19/17 06:01 Sodium Chloride 1,000 ml @ 50 mls/hr Q20H IV 08/18/17 10:00 09/17/17 09:59 08/18/17 10:07 50 MLS/HR Pantoprazole Sodium (Protonix Tab) 40 mg QAM PO 08/19/17 09:00 09/18/17 08:59 Physical Exam Vital Signs Past 12 Hours Date Time Temp Pulse Resp B/P (MAP) Pulse Ox O2 Delivery O2 Flow Rate FiO2 08/18/17 12:30 98 Nasal Cannula 2.0 08/18/17 12:05 36.7 52 14 139/71 (93) 98 Nasal Cannula 2.0 08/18/17 11:42 36.9 53 14 144/73 (96) 98 Room Air 08/18/17 10:27 Nasal Cannula 2.0 08/18/17 09:38 156/76 (102) 08/18/17 08:04 37.1 72 21 181/70 (107) 90 Nasal Cannula 2.0 08/18/17 08:00 Nasal Cannula 2.0 08/18/17 04:00 Room Air 08/18/17 03:47 36.9 58 17 151/74 (99) 92 Nasal Cannula 2.0 She is alert and oriented x3. Mood affect appear normal. She answered all questions appropriately. HEENT: Sclerae are anicteric. Pupils are equal and reactive to light and accommodation. Extraocular movements were intact. Neuro: Cranial nerves intact Neck: Examination of the submandibular region did not reveal any significant lymphadenopathy. Carotids are palpable bilaterally and free of bruits on auscultation. There was no evidence of jugular venous distention. The thyroid was not enlarged. Lungs: Lungs are clear to auscultation bilaterally. There are no rales wheezes or rhonchi. She has normal respiratory effort without use of accessory muscles. There is normal pulmonary excursion. Cardiac: The rhythm was regular. S1 and S2 were normal. Soft holosystolic murmur. The PMI was not markedly displaced on palpation. Abdomen: The abdomen was soft and nontender. Extremities: Patient has bilateral radial pulses that are equal in intensity. There is no evidence cyanosis or clubbing. There was no evidence of significant peripheral edema bilaterally. Skin: There are no rashes noted on examination today. Data Imaging: I reviewed the results of her x-ray studies demonstrating the hip fracture. EKG: Normal sinus rhythm with evidence of LVH and associated ST segment changes Telemetry reviewed: Sinus bradycardia I reviewed the results of her echocardiogram obtained on March 04, 2017: Preserved LV systolic function. Stage I diastolic dysfunction. Mild aortic and mitral regurgitation. Assessment & Plan 1. Atrial fibrillation: This is paroxysmal in nature. She has not had any clinical recurrence of her atrial fibrillation since her last discharge. She did have some rapid ventricular rates previously was discharged on aggressive medical regimen for rate control. This regimen has been reduced due to the presence sinus bradycardia. She currently has an element of sinus bradycardia. I think she can be maintained on her current dose of metoprolol which be 12.5 milligrams twice daily. She has no symptoms relative to the bradycardia at this time. With respect to her anticoagulation, she was on reduced dose of Xarelto due to mild renal dysfunction. However, given her frequent falls we should probably reassess the safety of systemic anticoagulation. Certainly prophylaxis in the postoperative period would be appropriate. 2. Hip fracture: The circumstances surrounding her fall are unclear. She did not seem to have loss of consciousness nor which she witnessed to be unconscious. There is a possibility that this was mediated by an element of bradycardia or transition from atrial fibrillation to sinus rhythm. However, there is no objective evidence to support this currently. She has had multiple falls in the past which were likely mechanical in nature as well. She is noted to be quite weak and unsteady and may not have been using her walker at the time of this injury. At this point I think monitoring on telemetry would be appropriate. No additional interventions regarding her atrial fibrillation at this time.
--- NOTE | 2017-08-18 19:55 | DIAGNOSTIC IMAGING REPORT ---
L FEMUR 2 VIEWS ROUTINE CLINICAL HISTORY: 87 years-old Female presenting with left hip fracture s/p fall/trauam to left side. TECHNIQUE: Frontal and lateral views of the left femur were obtained. COMPARISON: 08/17/2017. FINDINGS: Redemonstration of the subcapital left femoral neck fracture with slight proximal displacement of the distal fracture fragment. Remainder of the left femur intact. Knee joint grossly congruent. IMPRESSION: Redemonstration of the subcapital left femoral neck fracture with proximal displacement of the femoral shaft. This is not significantly changed since the prior radiograph yesterday. Electronically signed by: Ángel Jaime M.D. 08/18/2017 7:54 PM Dictated Date/Time: 08/18/2017 7:51 PM
[2017-08-18] MEDS: ATORVASTATIN 20 MG TAB PO SCH (20:17)
[2017-08-19] MEDS: CHECK FENTANYL PATCH PLACEMENT SCH ×3 (00:25→15:16)
[2017-08-19 03:49] VITALS: BP 189/84; PULSE 65
[2017-08-19] MEDS ORDERED: HYDROmorphone INJ 0.5 MG/0.5 ML SYR IV PRN (04:00)
[2017-08-19] MEDS: ACETAMINOPHEN IV 650 MG in EMPTY BAG 0 ML IV PRN ×2 (04:15→10:58)
[2017-08-19 04:51] VITALS: BP 168/70; PULSE 62
[2017-08-19] MEDS ORDERED: CEFAZOLIN SOD 1000MG/5 ML IV PUSH IV ONE ×2 (06:00→20:51)
[2017-08-19] MEDS: SODIUM CHLORIDE 0.9% 1000ML 1,000 ML IV SCH ×2 (06:04→19:23)
[2017-08-19 07:13] VITALS: BP 140/69; PULSE 54; TEMP 36.5; O2SAT 96
[2017-08-19 07:47] LABS: BASO % 0.3 %; BASO ABS # 0.02 K/uL (0-0.2); COMPLETE YES; EOS % 1.1 %; HEMATOCRIT 35.2 % (37-47); IG% 0.3 %; LYMPH ABS # 0.85 K/uL (1.2-3.4); MEAN CELL VOLUME 92.4 fL (80-100); MEAN CORPUSCULAR HEMOGLOBIN 29.9 pg (25-34); MEAN CORPUSCULAR HGB CONC 32.4 g/dl (32-36); MEAN PLATELET VOLUME 10.2 fL (7.4-10.4); MONO % 15.4 %; NEUT % 68.9 %; PLATELET COUNT 161 K/uL (130-400); RED BLOOD COUNT 3.81 M/uL (4.2-5.4); WHITE BLOOD COUNT 6.09 K/uL (4.8-10.8)
[2017-08-19 08:21] LABS: BUN/CREATININE RATIO 34.4 (10-20); CALCIUM 8.8 mg/dl (8.5-10.1); CREATININE 0.92 mg/dl (0.60-1.20); POTASSIUM 3.9 mmol/L (3.5-5.1)
[2017-08-19] MEDS: METOPROLOL TARTRATE 25 MG TAB PO SCH ×2 (08:35→20:44)
[2017-08-19] MEDS: LISINOPRIL 10 MG TAB PO SCH (08:38)
[2017-08-19] MEDS: PANTOprazole SOD 40 MG TAB PO SCH (08:39)
[2017-08-19] MEDS: AMLODIPINE BESYLATE 5 MG TAB PO SCH (08:39)
--- NOTE | 2017-08-19 10:08 | Progress Note ---
Subjective Date of Service: Aug 19, 2017. Subjective Pt evaluation today including: conversation w/ patient, physical exam, chart review, lab review, review of studies, conversation w/ advertising consultant, review of inpatient medication list Doing the same, reported the pain is well controlled, no pain if not move Overnight has decreased urine output about 150 ml, totally, This morning from 7 AM to now is about 75 ml in the urinary bag Has increased IV fluid to 75 ml per hour Problem List Medical Problems: (1) Acute CVA (cerebrovascular accident) Status: Acute (2) Ambulatory dysfunction Status: Acute (3) Elevated troponin Status: Acute (4) Frequent falls Status: Acute (5) Generalized weakness Status: Acute (6) Head injury Status: Acute (7) Hip fracture, left Status: Acute (8) Hypokalemia Status: Acute (9) Scabies Status: Acute (10) Scalp laceration Status: Acute Review of Systems Constitutional: + fatigue, No fever, No chills, No sweats, No weight loss, No weakness, No problem reported Eyes: No worsening of vision, No eye pain, No redness, No discharge, No diplopia ENT: No hearing loss, No unusual epistaxis, No nasal symptoms, No sore throat, No tinnitus, No dental problems, No trouble swallowing Respiratory: No cough, No sputum, No wheezing, No shortness of breath, No dyspnea on exertion, No dyspnea at rest, No hemoptysis Cardiac: No chest pain, No orthopnea, No PND, No edema, No claudication, No palpitations Abdomen: No pain, No nausea, No vomiting, No diarrhea, No constipation Musculoskeletal: + joint pain, No muscle pain, No swelling, No calf pain Female : No dysuria, No urinary frequency, No hematuria, No incontinence, No abnormal vaginal bleeding, No vaginal discharge Neurologic: No memory loss, No paralysis, No weakness, No numbness/tingling, No vertigo, No balance problems Psychiatric: No depression symptoms, No anhedonism, No anxiety, No insomnia, No substance abuse Heme: No abnormal bleeding/bruising, No clotting problems, No swollen lymph nodes, No night sweats Endo: No fatigue, No excessive thirst, No excessive urination Skin: No rash, No itch, No new/changing skin lesions, No color change, No bleeding Objective Vital Signs Date Time Temp Pulse Resp B/P (MAP) Pulse Ox O2 Delivery O2 Flow Rate FiO2 08/19/17 08:55 Nasal Cannula 2.0 08/19/17 07:13 36.5 54 16 140/69 (92) 96 Nasal Cannula 2.0 08/19/17 04:51 62 168/70 (102) 08/19/17 03:49 65 08/19/17 03:49 189/84 (119) 08/18/17 23:27 36.8 66 16 170/77 (108) 94 Nasal Cannula 2.0 08/18/17 20:12 75 154/80 (104) 08/18/17 20:10 Nasal Cannula 2.0 08/18/17 14:50 36.6 64 14 163/72 (102) 91 Nasal Cannula 2.0 08/18/17 12:30 98 Nasal Cannula 2.0 08/18/17 12:05 36.7 52 14 139/71 (93) 98 Nasal Cannula 2.0 08/18/17 11:42 36.9 53 14 144/73 (96) 98 Room Air 08/18/17 10:27 Nasal Cannula 2.0 Physical Exam General Appearance: WD/WN, no apparent distress, + thin, + pertinent finding ( frail, chronically ill-looking,) Eyes: normal inspection, PERRL, EOMI, sclerae normal ENT: normal ENT inspection, hearing grossly normal, pharynx normal, + pertinent finding (lips looks dry) Neck: supple, no adenopathy, thyroid normal, no JVD, no carotid bruits, trachea midline Respiratory/Chest: chest non-tender, normal breath sounds, no respiratory distress, no accessory muscle use, + decreased breath sounds Cardiovascular: regular rate, rhythm, no edema, no gallop, no JVD, no murmur Abdomen: normal bowel sounds, non tender, soft, no organomegaly, no pulsatile mass Extremities: no pedal edema, no calf tenderness, normal capillary refill, pelvis stable, + pertinent finding (left lower extremity is shortened and inner rotated ) 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, no motor/sensory deficits, alert, normal mood/affect, oriented x 3 Skin: normal color, warm/dry, no rash Lymphatic: no adenopathy Laboratory Results Last 24 Hours Test 08/19/17 07:06 White Blood Count 6.09 K/uL Red Blood Count 3.81 M/uL Hemoglobin 11.4 g/dL Hematocrit 35.2 % Mean Corpuscular Volume 92.4 fL Mean Corpuscular Hemoglobin 29.9 pg Mean Corpuscular Hemoglobin Concent 32.4 g/dl Platelet Count 161 K/uL Mean Platelet Volume 10.2 fL Neutrophils (%) (Auto) 68.9 % Lymphocytes (%) (Auto) 14.0 % Monocytes (%) (Auto) 15.4 % Eosinophils (%) (Auto) 1.1 % Basophils (%) (Auto) 0.3 % Neutrophils # (Auto) 4.19 K/uL Lymphocytes # (Auto) 0.85 K/uL Monocytes # (Auto) 0.94 K/uL Eosinophils # (Auto) 0.07 K/uL Basophils # (Auto) 0.02 K/uL RDW Standard Deviation 51.0 fL RDW Coefficient of Variation 15.0 % Immature Granulocyte % (Auto) 0.3 % Immature Granulocyte # (Auto) 0.02 K/uL Sodium Level 141 mmol/L Potassium Level 3.9 mmol/L Chloride Level 107 mmol/L Carbon Dioxide Level 26 mmol/L Anion Gap 7.0 mmol/L Blood Urea Nitrogen 32 mg/dl Creatinine 0.92 mg/dl Est Creatinine Clear Calc Drug Dose 28.2 ml/min Estimated GFR () 64.9 Estimated GFR (Non- 56.0 BUN/Creatinine Ratio 34.4 Random Glucose 84 mg/dl Calcium Level 8.8 mg/dl Magnesium Level 2.0 mg/dl Assessment and Plan 87 year old female with history of stroke admitted on 08/17/2017 with Left hip fracture, was stable in telemetry, orthopedic consulted, transfered to med/surg is an intermediate risk patient going for an intermediate risk procedure because of hx of stroke and old age, bradycardia stable I agreed benefits of the procedure likely outweigh the risks as her quality of life will be significantly decreased without repairing this fracture. I called to daughter yesterday, and discussed the care plan, and risk and benefits H/O paroxysmal a. fib Postoperatively, may continue with anticoagulation for dvt prophylaxis for short term. after procedure post op stroke prevention and DVT prophylaxis will be discussed with cardiology and orthopedic Xarelto currently is on hold, and possible need to be discontinued given multiple falls continue with beta carlos alberto, digoxin stopped H/O bradycardia, likely secondary to meds. as stated above will hold dig. Decreased urine output, has increased to IV fluid infusion, HTN Dyslipidemia Continue home meds stable in [facility] talked to daughter Afia, discussed risks and benefits , confirmed pt is full code GI and DVT prophylaxis is covered Continued [facility] stay due to: home environment unsafe for pt Discharge planning: uncertain
--- NOTE | 2017-08-19 14:40 | History & Physical Bridge Note ---
H&P Re-Evaluation Bridge Note: I have examined the patient, reviewed the History & Physical and in the interval since the performance of the History & Physical I have noted the following changes of clinical significance: No changes noted
--- NOTE | 2017-08-19 14:47 | Orthopedic Progress Note ---
Orthopedic Progress Note Date of Service Aug 19, 2017. Subjective Reports: feeling well, Denies: complaints Additional Notes: Patient seen at bedside resting comfortably. No acute issues. Poor historian. Objective LLE NVSI +EHL/FHL/TA/GS SILT grossly, compartments soft NT, +2DP pulse, skin intact left hip Date Time Temp Pulse Resp B/P (MAP) Pulse Ox O2 Delivery O2 Flow Rate FiO2 08/19/17 08:55 Nasal Cannula 2.0 08/19/17 07:13 36.5 54 16 140/69 (92) 96 Nasal Cannula 2.0 08/19/17 04:51 62 168/70 (102) 08/19/17 03:49 65 08/19/17 03:49 189/84 (119) 08/18/17 23:27 36.8 66 16 170/77 (108) 94 Nasal Cannula 2.0 08/18/17 20:12 75 154/80 (104) 08/18/17 20:10 Nasal Cannula 2.0 08/18/17 14:50 36.6 64 14 163/72 (102) 91 Nasal Cannula 2.0 Laboratory Results 24 Hours: Test 08/19/17 07:06 White Blood Count 6.09 K/uL Red Blood Count 3.81 M/uL Hemoglobin 11.4 g/dL Hematocrit 35.2 % Mean Corpuscular Volume 92.4 fL Mean Corpuscular Hemoglobin 29.9 pg Mean Corpuscular Hemoglobin Concent 32.4 g/dl Platelet Count 161 K/uL Mean Platelet Volume 10.2 fL Neutrophils (%) (Auto) 68.9 % Lymphocytes (%) (Auto) 14.0 % Monocytes (%) (Auto) 15.4 % Eosinophils (%) (Auto) 1.1 % Basophils (%) (Auto) 0.3 % Neutrophils # (Auto) 4.19 K/uL Lymphocytes # (Auto) 0.85 K/uL Monocytes # (Auto) 0.94 K/uL Eosinophils # (Auto) 0.07 K/uL Basophils # (Auto) 0.02 K/uL Assessment & Plan Assessment: Left hip displaced femoral neck fracture Plan: 87 yo Female with displaced left femoral neck fracture sustained after a fall. The patient was medically stabilized on 08/19/17. I indicated the patient for left hip hemiarthroplasty. The BRIDGETTE Rogers (son) was informed of the risks and benefits of surgery, which included but not limited to infection, bleeding, blood clots, damage to nerves, vessels, bone and soft tissue, dislocation, leg length discrepancy, need for additional surgery and . The patients family collectively chose to move forward with surgical intervention and informed consent was obtained. -Cleared by medical/cardio teams for OR today 08/19/17 -NPO -IVF -Pain controlled -ABX compliance and control analyst to OR -NWB LLE -Bedrest -Iniguez -Femur XR reviewed, isolated fracture to femoral neck
[2017-08-19 15:29] VITALS: BP 139/67; PULSE 52; TEMP 36.6; O2SAT 94
--- NOTE | 2017-08-19 18:51 | Progress Note ---
Progress Note Date of Service Aug 19, 2017. Progress Note Case delayed due to OR/staff availability. Will proceed with surgery as soon as staff and OR available.
[2017-08-19] MEDS: ATORVASTATIN 20 MG TAB PO SCH (20:44)
[2017-08-19] MEDS ORDERED: FENTANYL CITRATE INJ 50 MCG/1 ML 2 ML VIAL IV PRN (21:15)
[2017-08-19] MEDS ORDERED: ONDANSETRON INJ 2 MG/ML 2 ML VIAL IV PRN ×2 (21:15→23:15)
[2017-08-19] MEDS ORDERED: EpHEDrine SULFATE INJ 50 MG/ML AMP IV PRN (21:15)
[2017-08-19] MEDS ORDERED: ATROPINE SULFATE 0.1 MG/ML 5ML SYR IV PRN (21:15)
[2017-08-19] MEDS ORDERED: BACITRACIN 50000 UNIT VIAL ONE (21:59)
[2017-08-19] MEDS ORDERED: FENTANYL CITRATE INJ 50 MCG/1 ML 2 ML VIAL ONE (22:00)
[2017-08-19] MEDS ORDERED: ROPIVACAINE 5MG/ML 30 ML 150 MG, BUPIVACAINE 0.5% MPF INJ 30 ML, EpINEphrine HCL INJ 0.... INFIL SCH ×8 (22:00)
[2017-08-19] MEDS ORDERED: LIDOCAINE HCL 2% 2 ML VIAL (20MG/ML) ONE (22:50)
[2017-08-19] MEDS ORDERED: PROPOFOL IV EMULSION 10 MG/ML 20 ML VIAL IV ONE (22:50)
[2017-08-19] MEDS ORDERED: ROCURONIUM BROMIDE 10 MG/ML 5 ML VIAL IV ONE (22:50)
[2017-08-19] MEDS ORDERED: ONDANSETRON INJ 2 MG/ML 2 ML VIAL ONE (22:54)
[2017-08-19] MEDS ORDERED: GLYCOPYRROLATE INJ 0.2 MG/ML VIAL ONE (22:55)
[2017-08-19] MEDS ORDERED: NEOSTIGMINE METHYLSULFATE 5 MG/5 ML SYR ONE (22:55)
[2017-08-19] MEDS ORDERED: ESMOLOL HCL 10 MG/ML 10 ML VIAL ONE (23:02)
--- NOTE | 2017-08-19 23:22 | [facility] Operative Report ---
Operative Report Operative Date Aug 19, 2017. Pre-Operative Diagnosis Left hip fracture Post-Operative Diagnosis left hip fracture Procedure(s) Performed left hip hemiarthroplasty Surgeon Dr. Mundo Madden Hotel Or Motel Receptionist Surgeon(s) Huber Valadez PAC Estimated Blood Loss 75ml Findings see dictated op note Fluids 750 Specimens A: Left Femoral Head Drains none Anesthesia general Complication(s) None Disposition Recovery Room / PACU Indications 87 yo Female with displaced left femoral neck fracture sustained after a fall. The patient was medically stabilized on 08/19/17. I indicated the patient for left hip hemiarthroplasty. The BRIDGETTE Rogers was informed of the risks and benefits of surgery, which included but not limited to infection, bleeding, blood clots, damage to nerves, vessels, bone and soft tissue, dislocation, leg length discrepancy, need for additional surgery and . The patients family collectively chose to move forward with surgical intervention and informed consent was obtained. Description of Procedure Following induction of adequate anesthesia, the patient was transferred to the OR table and placed in the lateral decubitus position with right hip down. The left hip was prepped and draped in usual sterile manner. A posterior incision was made. Subcutaneous tissue was sharply dissected. Electro cautery was used for hemostasis. Fascia was incised throughout the length of the wound and the piriformis was identified. A #1 Vicryl suture was used to tage the piriformis. The short external rotators were divided from the posterior aspect of the femur and a capsulotomy was performed. A second #2 Vicryl suture was used to tag the capsule. Next, I turned my attention to the femoral neck fracture. The fracture was relatively high on the calcar and decision was made to proceed with the oscillating saw and create the calcar osteotomy. This bone fragment was removed. Following this, tenaculum and cob elevater was utilized to remove the femoral head. The head was measured on the back table and the 43 mm femoral head was chosen as the size to be used. Next, attention was turned to the acetabulum which was found to have no significant arthritis. All bony debris was removed. A sponge was placed in the acetabulum. Attention was then turned to the proximal femur where box osteotome was used to gain access to the femoral canal. A canal finder and power lateralizing reamer were utilized to further open. Sequential raspings were taken up to a size 11 mm, which was sunk completely and trial reduction was carried out and a 28 mm femoral head was chosen the size to be used with the 43 bipolar cup. Following a trial reduction, the hip was found to be stable to 45 degrees of internal rotation and 90 degrees of flexion with equal leg lengths. The calcar reamer was utilized to smooth the calcar and the instruments and trial components were removed. The hip was thoroughly irrigated with pulsatile irrigation. The canal was irrigated and dried, cement restrictor was placed and [place] cement was mixed. The size 11 low demand fracture stem was placed with a 9 mm centralizer and this was held in position well. All excess cement was removed and cement hardened. Following insertion of final stem component another trial reduction was carried out and again a +3 neck size was chosen as the size to be used. The final head and neck was impacted into position and the hip was reduced and stablity assess and was found to be stable to 45 degrees of internal rotation and 90 degrees of flexion. The wound was again irrigated. The [facility] joint mix was injected throughout the hip and the capsule was repaired using 5 fiberwire sutures through drill holes. Following this, the short external rotators were reapproximated to the posterior aspect of the femur also through drill holes and these were tied. Once again the wound was copiously irrigated with sterile saline solution. Fascia was closed using #1 Vicryl [id number] sutures, subcutaneous tissue was closed using 2- 0 vicryl, and skin was closed with lena. Sterile dressing Silverlon was applied and abduction pillow placed between the legs. The patient tolerated the procedure well and was taken to recovery room in stable condition. Due to the complex nature of the procedure, the entire surgery was performed with the operational assistance of Huber Valadez PA-C. The night assistant, under direct supervision, was involved in the actual performance of all aspects of the surgical procedure including hemostasis, tissue retraction and incision, instrument management, patient positioning, and wound closure. I attest to the content of the Intraoperative Record and any orders documented therein. Any exceptions are noted below. I attest to the content of the Intraoperative Record and any orders documented therein. Any exceptions are noted below.
[2017-08-20] VITALS (13 sets, daily range): BP systolic 83–163; BP diastolic 48–91; PULSE 58–74; TEMP 36.2–36.7; O2SAT 91–98
--- NOTE | 2017-08-20 00:07 | Anesthesiology Progress Note ---
Anesthesia Post Op Note Date & Time Aug 20, 2017 at 00:07 Vital Signs Pain Intensity: 0 Vital Signs Past 12 Hours Date Time Temp Pulse Resp B/P (MAP) Pulse Ox O2 Delivery O2 Flow Rate FiO2 08/19/17 23:59 83 16 158/61 100 Nasal Cannula 2 08/19/17 23:49 76 16 162/61 99 Oxymask 10 08/19/17 23:39 36.2 88 16 166/69 100 Oxymask 10 08/19/17 23:29 36.2 89 16 154/60 100 Oxymask 10 08/19/17 15:29 36.6 52 16 139/67 (91) 94 Nasal Cannula 2.0 08/19/17 15:10 Nasal Cannula 2.0 Notes Mental Status: alert / awake / arousable, participated in evaluation Pt Amnestic to Procedure: Yes Nausea / Vomiting: adequately controlled Pain: adequately controlled Airway Patency, RR, SpO2: stable & adequate BP & HR: stable & adequate Hydration State: stable & adequate Anesthetic Complications: no major complications apparent
--- NOTE | 2017-08-20 00:17 | Progress Note ---
Progress Note Date of Service Aug 20, 2017. Progress Note Post-op progress note Patient seen in recovery, comfortable, no acute issues. PE: Patient not following commands, actively moving toes, +2 DP pulse, compartments soft, dressing cdi, abduction pillow in place s/p L Hip Hemiarthroplasty -Ancef x 24 -DVT PPX - Patients home med Xarelto, restart POD#1 -Pain controlled -AM Labs -WBAT LLE -PT/OT -Posterior hip precautions -Abduction pillow when in bed -DC rodriguez POD#1 -Maintain Silverlon dressing 5-7 days unless saturated
[2017-08-20] MEDS: CHECK FENTANYL PATCH PLACEMENT SCH ×4 (00:30→23:53)
[2017-08-20] MEDS ORDERED: SODIUM CHLORIDE 0.9% 1000ML 1,000 ML IV ONE (02:15)
[2017-08-20 02:52] LABS: BASO % 0.2 %; BASO ABS # 0.02 K/uL (0-0.2); EOS % 0.2 %; HEMATOCRIT 36.1 % (37-47); IG% 0.3 %; LYMPH ABS # 0.49 K/uL (1.2-3.4); MEAN CELL VOLUME 93.8 fL (80-100); MEAN CORPUSCULAR HEMOGLOBIN 30.1 pg (25-34); MEAN PLATELET VOLUME 10.2 fL (7.4-10.4); MONO % 8.6 %; NEUT % 85.7 %; PLATELET COUNT 147 K/uL (130-400); RED BLOOD COUNT 3.85 M/uL (4.2-5.4); WHITE BLOOD COUNT 9.73 K/uL (4.8-10.8)
[2017-08-20 03:03] LABS: COMPLETE YES; MEAN CORPUSCULAR HGB CONC 32.1 g/dl (32-36)
[2017-08-20] MEDS: ACETAMINOPHEN 325 MG TAB PO SCH ×4 (03:22→21:18)
[2017-08-20] MEDS: POTASSIUM CHLORIDE INJ 10 MEQ in SODIUM CHLORIDE 0.9% 1000ML 1,000 ML IV SCH ×3 (03:28→21:12)
[2017-08-20] MEDS ORDERED: CEFAZOLIN IV 1,000 MG in DEXTROSE 5% 50ML 50 ML IV SCH (04:00)
[2017-08-20] MEDS: TRAMADOL HCL 50 MG TAB PO PRN (06:02)
--- NOTE | 2017-08-20 06:04 | DIAGNOSTIC IMAGING REPORT ---
L PELVIS/UNILATERAL HIP 1 VIEW CLINICAL HISTORY: 87 years-old Female presenting with post op left hip hemiarthroplasty. TECHNIQUE: Single frontal view of the pelvis and crosstable lateral view of the left hip were obtained. COMPARISON: 08/17/2017. FINDINGS: There has been interval total left hip arthroplasty. Soft tissue emphysema and overlying skin lena noted. No malalignment. No acute postoperative fracture. Osteopenia suggested. Bony pelvis intact. Scattered surgical clips noted in the right lower quadrant. Degenerative changes of the lower lumbar spine. Atherosclerosis. IMPRESSION: Expected postsurgical changes status post total left hip arthroplasty. Electronically signed by: Ángel Jaime M.D. 08/20/2017 6:02 AM Dictated Date/Time: 08/20/2017 6:01 AM
[2017-08-20 07:27] LABS: HEMATOCRIT 35.3 % (37-47); MEAN CELL VOLUME 94.4 fL (80-100); MEAN CORPUSCULAR HEMOGLOBIN 29.9 pg (25-34); MEAN CORPUSCULAR HGB CONC 31.7 g/dl (32-36); PLATELET COUNT 158 K/uL (130-400); RED BLOOD COUNT 3.74 M/uL (4.2-5.4); WHITE BLOOD COUNT 10.38 K/uL (4.8-10.8)
[2017-08-20 07:40] LABS: INR 1.1 (0.9-1.1)
[2017-08-20 07:56] LABS: BUN/CREATININE RATIO 23.1 (10-20); CALCIUM 8.6 mg/dl (8.5-10.1); CREATININE 1.11 mg/dl (0.60-1.20)
[2017-08-20] MEDS: DOCUSATE SODIUM 100 MG CAP PO SCH ×2 (08:24→21:12)
[2017-08-20] MEDS: METOPROLOL TARTRATE 25 MG TAB PO SCH ×2 (08:24→21:16)
[2017-08-20] MEDS: MULTIVITAMIN TAB PO SCH (08:25)
[2017-08-20] MEDS: AMLODIPINE BESYLATE 5 MG TAB PO SCH (08:26)
[2017-08-20] MEDS: LISINOPRIL 10 MG TAB PO SCH (08:27)
[2017-08-20] MEDS: PANTOprazole SOD 40 MG TAB PO SCH (08:27)
[2017-08-20] MEDS: RIVAROXABAN TAB 15 MG TAB PO SCH (08:34)
[2017-08-20] MEDS ORDERED: PANTOprazole SOD 40 MG TAB PO SCH (09:00)
--- NOTE | 2017-08-20 09:37 | Orthopedic Progress Note ---
Orthopedic Progress Note Date of Service Aug 20, 2017. Subjective Post OP Day: 1 Reports: feeling well, Denies: complaints Additional Notes: Hx difficult with patient. Seems to be confused this AM. States the hip feels ok today. Objective calves soft nontender, N/V intact, hip located, capillary refill less than 2 sec., dressing C/D/I, toes mobile Patient is alert and lying comfortably in bed with her head up. She is confused and having trouble drinking her coffee or eating her breakfast. I spoke with a ELECTRONICS UTILITY WORKER who was going to stay in the room with the patient. Date Time Temp Pulse Resp B/P (MAP) Pulse Ox O2 Delivery O2 Flow Rate FiO2 08/20/17 07:54 36.2 71 18 153/70 (97) 91 Nasal Cannula 2.0 08/20/17 03:55 36.3 60 18 111/57 (75) 97 Nasal Cannula 2.0 08/20/17 02:50 36.3 63 18 119/68 (85) 98 Nasal Cannula 2.0 08/20/17 02:07 65 83/48 (60) 08/20/17 02:03 36.4 58 18 88/59 (69) 98 Nasal Cannula 2.0 08/20/17 01:33 36.3 58 16 92/54 (67) 97 Nasal Cannula 3.0 08/20/17 00:55 36.3 60 18 126/64 (84) 97 Nasal Cannula 2.0 08/20/17 00:40 36.3 62 18 147/69 (95) 97 Nasal Cannula 2.0 08/20/17 00:25 Nasal Cannula 2.0 08/20/17 00:25 Nasal Cannula 2.0 08/20/17 00:25 36.3 64 18 163/90 (114) 97 Nasal Cannula 2.0 08/20/17 00:05 36.2 08/19/17 23:59 83 16 158/61 100 Nasal Cannula 2 08/19/17 23:49 76 16 162/61 99 Oxymask 10 08/19/17 23:39 36.2 88 16 166/69 100 Oxymask 10 08/19/17 23:29 36.2 89 16 154/60 100 Oxymask 10 08/19/17 15:29 36.6 52 16 139/67 (91) 94 Nasal Cannula 2.0 08/19/17 15:10 Nasal Cannula 2.0 Laboratory Results 24 Hours: Test 08/20/17 02:39 08/20/17 07:01 White Blood Count 9.73 K/uL Red Blood Count 3.85 M/uL Hemoglobin 11.6 g/dL 11.2 g/dL Hematocrit 36.1 % 35.3 % Mean Corpuscular Volume 93.8 fL Mean Corpuscular Hemoglobin 30.1 pg Mean Corpuscular Hemoglobin Concent 32.1 g/dl Platelet Count 147 K/uL Mean Platelet Volume 10.2 fL Neutrophils (%) (Auto) 85.7 % Lymphocytes (%) (Auto) 5.0 % Monocytes (%) (Auto) 8.6 % Eosinophils (%) (Auto) 0.2 % Basophils (%) (Auto) 0.2 % Neutrophils # (Auto) 8.33 K/uL Lymphocytes # (Auto) 0.49 K/uL Monocytes # (Auto) 0.84 K/uL Eosinophils # (Auto) 0.02 K/uL Basophils # (Auto) 0.02 K/uL Prothromb Time International Ratio 1.1 Prothrombin Time 12.0 SECONDS Assessment & Plan Assessment: POD #1 s/p left hip hemiarthroplasty Plan: WBAT LLE Hip precautions PT/OT when able D/C planning--per medicine -IVF -Pain controlled -Iniguez Inhouse Planning Pain Management: Ultram, Dilaudid, other (Fentanyl) DVT Prophylaxis: Xarelto Discharge Planning Discharge Planning: uncertain
--- NOTE | 2017-08-20 10:48 | Progress Note ---
Subjective Date of Service: Aug 20, 2017. Subjective Pt evaluation today including: conversation w/ patient, physical exam, chart review, lab review, review of studies, conversation w/ microsoft dynamics consultant, review of inpatient medication list feeling Okay, is getting feeding breakfast, pain is fairly controlled, no complaint, Iniguez catheter was removed Problem List Medical Problems: (1) Acute CVA (cerebrovascular accident) Status: Acute (2) Ambulatory dysfunction Status: Acute (3) Elevated troponin Status: Acute (4) Frequent falls Status: Acute (5) Generalized weakness Status: Acute (6) Head injury Status: Acute (7) Hip fracture, left Status: Acute (8) Hypokalemia Status: Acute (9) Scabies Status: Acute (10) Scalp laceration Status: Acute Review of Systems Constitutional: + weakness, + fatigue, No fever, No chills, No sweats, No weight loss, No problem reported Eyes: No worsening of vision, No eye pain, No redness, No discharge, No diplopia ENT: No hearing loss, No unusual epistaxis, No nasal symptoms, No sore throat, No tinnitus, No dental problems, No trouble swallowing Respiratory: No cough, No sputum, No wheezing, No shortness of breath, No dyspnea on exertion, No dyspnea at rest, No hemoptysis Cardiac: No chest pain, No orthopnea, No PND, No edema, No claudication, No palpitations Abdomen: No pain, No nausea, No vomiting, No diarrhea, No constipation Musculoskeletal: + joint pain, No muscle pain, No swelling, No calf pain Female : No dysuria, No urinary frequency, No hematuria, No incontinence, No abnormal vaginal bleeding, No vaginal discharge Neurologic: No memory loss, No paralysis, No weakness, No numbness/tingling, No vertigo, No balance problems Psychiatric: No depression symptoms, No anhedonism, No anxiety, No insomnia, No substance abuse Heme: No abnormal bleeding/bruising, No clotting problems, No swollen lymph nodes, No night sweats Endo: No fatigue, No excessive thirst, No excessive urination Skin: No rash, No itch, No new/changing skin lesions, No color change, No bleeding Objective Vital Signs Date Time Temp Pulse Resp B/P (MAP) Pulse Ox O2 Delivery O2 Flow Rate FiO2 08/20/17 07:54 36.2 71 18 153/70 (97) 91 Nasal Cannula 2.0 08/20/17 07:25 Nasal Cannula 2.0 08/20/17 03:55 36.3 60 18 111/57 (75) 97 Nasal Cannula 2.0 08/20/17 02:50 36.3 63 18 119/68 (85) 98 Nasal Cannula 2.0 08/20/17 02:07 65 83/48 (60) 08/20/17 02:03 36.4 58 18 88/59 (69) 98 Nasal Cannula 2.0 08/20/17 01:33 36.3 58 16 92/54 (67) 97 Nasal Cannula 3.0 08/20/17 00:55 36.3 60 18 126/64 (84) 97 Nasal Cannula 2.0 08/20/17 00:40 36.3 62 18 147/69 (95) 97 Nasal Cannula 2.0 08/20/17 00:25 Nasal Cannula 2.0 08/20/17 00:25 Nasal Cannula 2.0 08/20/17 00:25 36.3 64 18 163/90 (114) 97 Nasal Cannula 2.0 08/20/17 00:05 36.2 08/19/17 23:59 83 16 158/61 100 Nasal Cannula 2 08/19/17 23:49 76 16 162/61 99 Oxymask 10 08/19/17 23:39 36.2 88 16 166/69 100 Oxymask 10 08/19/17 23:29 36.2 89 16 154/60 100 Oxymask 10 08/19/17 15:29 36.6 52 16 139/67 (91) 94 Nasal Cannula 2.0 08/19/17 15:10 Nasal Cannula 2.0 Physical Exam General Appearance: WD/WN, no apparent distress, + thin, + pertinent finding ( frail,) Eyes: normal inspection, PERRL, EOMI, sclerae normal ENT: normal ENT inspection, hearing grossly normal, pharynx normal Neck: supple, no adenopathy, thyroid normal, no JVD, no carotid bruits, trachea midline Respiratory/Chest: chest non-tender, normal breath sounds, no respiratory distress, no accessory muscle use, + decreased breath sounds Cardiovascular: regular rate, rhythm, no edema, no gallop, no JVD, no murmur Abdomen: normal bowel sounds, non tender, soft, no organomegaly, no pulsatile mass Extremities: normal range of motion, non-tender, normal inspection, no pedal edema, no calf tenderness, normal capillary refill, pelvis stable Neurologic/Psychiatric: mission planner II-XII nml as tested, no motor/sensory deficits, alert, normal mood/affect, oriented x 3 Skin: normal color, warm/dry, no rash Lymphatic: no adenopathy Laboratory Results Last 24 Hours Test 08/20/17 02:39 08/20/17 07:01 White Blood Count 9.73 K/uL 10.38 K/uL Red Blood Count 3.85 M/uL 3.74 M/uL Hemoglobin 11.6 g/dL 11.2 g/dL Hematocrit 36.1 % 35.3 % Mean Corpuscular Volume 93.8 fL 94.4 fL Mean Corpuscular Hemoglobin 30.1 pg 29.9 pg Mean Corpuscular Hemoglobin Concent 32.1 g/dl 31.7 g/dl Platelet Count 147 K/uL 158 K/uL Mean Platelet Volume 10.2 fL 10.0 fL Neutrophils (%) (Auto) 85.7 % Lymphocytes (%) (Auto) 5.0 % Monocytes (%) (Auto) 8.6 % Eosinophils (%) (Auto) 0.2 % Basophils (%) (Auto) 0.2 % Neutrophils # (Auto) 8.33 K/uL Lymphocytes # (Auto) 0.49 K/uL Monocytes # (Auto) 0.84 K/uL Eosinophils # (Auto) 0.02 K/uL Basophils # (Auto) 0.02 K/uL RDW Standard Deviation 51.8 fL 52.6 fL RDW Coefficient of Variation 15.0 % 15.1 % Immature Granulocyte % (Auto) 0.3 % Immature Granulocyte # (Auto) 0.03 K/uL Prothrombin Time 12.0 SECONDS Prothromb Time International Ratio 1.1 Sodium Level 141 mmol/L Potassium Level 4.0 mmol/L Chloride Level 110 mmol/L Carbon Dioxide Level 21 mmol/L Anion Gap 10.0 mmol/L Blood Urea Nitrogen 26 mg/dl Creatinine 1.11 mg/dl Est Creatinine Clear Calc Drug Dose 23.4 ml/min Estimated GFR () 51.7 Estimated GFR (Non- 44.6 BUN/Creatinine Ratio 23.1 Random Glucose 109 mg/dl Calcium Level 8.6 mg/dl Assessment and Plan 87 year old female with history of stroke admitted on 08/17/2017 with Left hip fracture, Left hip fracture, was stable in telemetry, orthopedic consulted, transferred to med/surg left hip hemiarthroplasty on 08/19/2017 POD #1 s/p left hip hemiarthroplasty, stable Activities per recommendation by orthopedic surgeon, which is WBAT LLE, Hip precautions, PT/OT when able, continue Pain controlled H/O paroxysmal a. 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 Continued [facility] stay due to: home environment unsafe for pt Discharge planning: retirement facility
[2017-08-20] MEDS ORDERED: CEFAZOLIN IV 1,000 MG in SYRINGE 0 ML IV SCH (12:00)
[2017-08-20] MEDS ORDERED: NURSING VERBAL MED ORDER ONE (16:45)
[2017-08-20] MEDS: FENTANYL PATCH REMOVE & WASTE SCH (17:38)
[2017-08-20] MEDS: FENTANYL 50 MCG/HR TDSY TD SCH (17:38)
[2017-08-20] MEDS: ATORVASTATIN 20 MG TAB PO SCH (21:12)
[2017-08-20] MEDS ORDERED: RISPERIDONE ODT 0.5MG PO PRN (22:15)
[2017-08-21] VITALS (9 sets, daily range): BP systolic 109–134; BP diastolic 55–73; PULSE 58–65; TEMP 36.4–36.7; O2SAT 92–100
[2017-08-21] MEDS: ACETAMINOPHEN 325 MG TAB PO SCH ×3 (05:42→22:00)
[2017-08-21] MEDS: POTASSIUM CHLORIDE INJ 10 MEQ in SODIUM CHLORIDE 0.9% 1000ML 1,000 ML IV SCH (06:16)
[2017-08-21 06:41] LABS: HEMATOCRIT 27.6 % (37-47); MEAN CELL VOLUME 93.2 fL (80-100); MEAN CORPUSCULAR HEMOGLOBIN 29.4 pg (25-34); MEAN CORPUSCULAR HGB CONC 31.5 g/dl (32-36); MEAN PLATELET VOLUME 9.9 fL (7.4-10.4); PLATELET COUNT 164 K/uL (130-400); RED BLOOD COUNT 2.96 M/uL (4.2-5.4)
[2017-08-21 06:49] LABS: INR 1.4 (0.9-1.1); PROTHROMBIN TIME (PATIENT) 14.7 SECONDS (9.0-12.0)
[2017-08-21 07:17] LABS: BUN/CREATININE RATIO 24.4 (10-20); CALCIUM 8.3 mg/dl (8.5-10.1); CREATININE 1.12 mg/dl (0.60-1.20); MAGNESIUM 1.8 mg/dl (1.8-2.4); POTASSIUM 4.7 mmol/L (3.5-5.1)
[2017-08-21] MEDS: NSS + 20MEQ KCL 1000ML 1,000 ML IV SCH ×2 (07:53→14:07)
[2017-08-21] MEDS: RIVAROXABAN TAB 15 MG TAB PO SCH (07:53)
[2017-08-21] MEDS: CHECK FENTANYL PATCH PLACEMENT SCH ×2 (07:53→16:00)
--- NOTE | 2017-08-21 09:52 | DIAGNOSTIC IMAGING REPORT ---
(RENAL)RETROPERITON COMP HISTORY: 87 years-old Female include kidneys to study for low UOP acute leak decreased urinary output COMPARISON: None available TECHNIQUE: Multiple real-time sonographic images of the kidneys and urinary bladder were obtained assessing grayscale appearance FINDINGS: Study is very limited secondary to obscuring bowel gas and patient positioning. Right kidney is not identified. Only a portion of the superior pole left kidney is seen which is unremarkable. The majority of the left kidney is not visualized. Urinary bladder is collapsed with Iniguez catheter. Mild free fluid is noted adjacent to the liver, nonspecific. IMPRESSION: 1. Very limited study secondary to positioning of the patient and obscuring bowel gas. 2. Right kidney and the majority of the left kidney are not diagnostically visualized. Urinary bladder collapsed with Iniguez catheter. 3. Trace nonspecific perihepatic fluid. The above report was generated using voice recognition software. It may contain grammatical, syntax or spelling errors. Electronically signed by: Carlos Lara M.D. 08/21/2017 9:51 AM Dictated Date/Time: 08/21/2017 9:48 AM
--- NOTE | 2017-08-21 09:55 | DIAGNOSTIC IMAGING REPORT ---
L EXTREMITY NONVASCULAR LIMITED HISTORY: 87 years-old Female left hip post op to rule out hematoma left hip swelling with recent surgery. COMPARISON: Pelvis and left hip radiograph 08/19/2017 TECHNIQUE: Multiple real-time sonographic images of the soft tissues about the left hip were obtained assessing grayscale appearance and color flow FINDINGS/IMPRESSION: Moderate subcutaneous and deep tissue edema about the left hip. There is a focal crescentic avascular circumscribed hypoechoic collection lateral to the left hip, 5.1 x 1.9 x 2.9 cm with mildly increased through transmission suggesting postoperative seroma. Liquefied hematoma or abscess are thought to be less likely. The above report was generated using voice recognition software. It may contain grammatical, syntax or spelling errors. Electronically signed by: Carlos Lara M.D. 08/21/2017 9:54 AM Dictated Date/Time: 08/21/2017 9:51 AM
[2017-08-21] MEDS: MULTIVITAMIN TAB PO SCH (10:07)
[2017-08-21] MEDS: AMLODIPINE BESYLATE 5 MG TAB PO SCH (10:08)
[2017-08-21] MEDS: LISINOPRIL 10 MG TAB PO SCH (10:10)
[2017-08-21] MEDS: METOPROLOL TARTRATE 25 MG TAB PO SCH ×2 (10:11→21:00)
[2017-08-21] MEDS: PANTOprazole SOD 40 MG TAB PO SCH (10:11)
[2017-08-21] MEDS: DOCUSATE SODIUM 100 MG CAP PO SCH ×2 (10:11→21:00)
--- NOTE | 2017-08-21 10:28 | Orthopedic Progress Note ---
Orthopedic Progress Note Date of Service Aug 21, 2017. Subjective Post OP Day: 2 Additional Notes: Minimal hx today. Patient is lying in bed getting a dressing change but confused and does not answer questions. Objective N/V intact, capillary refill less than 2 sec., incision C/D/I Left hip with minimal bloody drainage from the incision. New [place] dressing applied. No obvious hematoma, no fluctuance with palpation. U/S suggests a seroma over the lateral aspect of the hip. No erythema or streaking noted at the hip incision. Date Time Temp Pulse Resp B/P (MAP) Pulse Ox O2 Delivery O2 Flow Rate FiO2 08/21/17 07:58 Nasal Cannula 2.0 08/21/17 07:57 36.6 65 15 109/57 (74) 100 Nasal Cannula 2.0 08/20/17 23:50 Nasal Cannula 08/20/17 23:06 36.4 74 17 159/91 (113) 93 Nasal Cannula 2.0 08/20/17 15:25 Room Air 08/20/17 15:00 36.7 60 18 156/56 (89) 92 Room Air 08/20/17 12:25 36.3 61 18 129/66 (87) 92 Room Air Laboratory Results 24 Hours: Test 08/21/17 06:20 Hematocrit 27.6 % Hemoglobin 8.7 g/dL Prothromb Time International Ratio 1.4 Prothrombin Time 14.7 SECONDS Assessment & Plan Assessment: POD #2 s/p left hip hemiarthroplasty Plan: WBAT LLE when able to ambulate Hip precautions PT/OT when able Will continue to observe the left hip wound. No need for intervention with the seroma at this time. D/C planning--per medicine -IVF -Pain controlled -Iniguez Inhouse Planning Pain Management: Ultram, Dilaudid, other (Fentanyl) DVT Prophylaxis: Xarelto Discharge Planning Discharge Planning: uncertain
--- NOTE | 2017-08-21 10:29 | Consultant Recommendations ---
Ham Rolling Machine Operator Recommendations Date of Service Aug 21, 2017. Ham Rolling Machine Operator Recommendations ACTIVITY RECOMMENDATIONS: SELF CARE INSTRUCTIONS AFTER HIP HEMIARTHROPLASTY Until the incision and soft tissues around your hip have healed, there is a possibility that the hip prosthesis could dislocate. A. Observe the following precautions to prevent dislocation: 1. Don't bend your hip greater than 90 degrees. 2. Avoid crossing your legs or ankles while standing or lying. 3. Sit with your feet placed 6 inches apart. 4. When sitting, keep your knees below your hips. Sit on a firm surface, avoid deep, soft chairs and couches. Use an elevated toilet seat in the bathroom. 5. Don't bend over at the waist. Use a long handled shoehorn and a sock aid to help you put on your shoes and socks. A laboratory associate can help you burr picker objects that are too high or too low to reach. 6. Keep car riding to a minimum for at least one month after surgery. B. Your balance may be shaky for a while. Use crutches or a walker until directed by your doctor. C. Use hand rails when walking on stairs. D. Wear low heeled shoes with non-slip soles. E. Be sure that your floors are free of things that could trip you - throw rugs , electrical cords, small objects. Avoid wet and waxed floors, especially with crutches and canes. F. Try to walk several times a day with rest periods between. G. Continue with all the exercises taught to you in the hospital. Again, make walking a part of your daily routine. H. It is okay to shower if minimal to no drainage from incision. No baths. Do not soak wound. I. Physical Therapy as instructed by your Physician. Matias Colón- This is a large adhesive bandage that contains silver ions. This helps your incision heal by fighting off bacteria and protecting it from the outside environment. You are permitted to shower with this dressing. This will remain on your incision for 7 days and then should be removed. Some visible blood or drainage through the dressing window is normal. If there is significant drainage or leaking noted before the 7 days notify your doctor's office immediately. Once removed, keep incision clean and dry. If there is any drainage or redness noted, please call your surgeon. A NEW DRESSING WAS APPLIED ON 08.21.17 AND CAN BE REMOVED ON 08.28.17. SPECIAL CARE INSTRUCTIONS: VERY IMPORTANT TO READ AND REVIEW A. You may still be at risk for phlebitis and blood clots. 1. Wear surgical stockings (HALEY hose) for one month, 20 hours daily, after surgery to improve circulation and reduce swelling. 2. Take Coumadin, Xarelto, Lovenox or Aspirin (blood thinning medications), as directed by your doctor. 3. Have a pro-time (blood test) drawn according to your doctor's instructions. B. We encourage and will assist you in choosing a home-health agency of your choice. Home health nurses and therapists will monitor your temperature, wound healing and progress in exercise and walking. Home health nurses may also draw the blood for the pro-time test. They may instruct you in decreasing or increasing the amount of Coumadin you take. C. You must take antibiotics before having dental work, bladder, bowel and other surgery. Your doctor will provide you with a permanent card to carry describing precautions. D. Call [facility] if you have a temperature of 101 or greater, redness or swelling around the incision, cloudy drainage from incision, or sudden increase in pain in your hip, not relieved by your regular pain medication. E. Please call the office at if you have any concerns or questions about your operation or recovery. FOLLOW UP VISIT: If appointment is not already scheduled: Please call [facility] to make a follow-up appointment for one month after your surgery at .
--- NOTE | 2017-08-21 11:07 | Progress Note ---
Subjective Date of Service: Aug 21, 2017. Subjective Pt evaluation today including: conversation w/ patient, conversation w/ family , physical exam, chart review, lab review, review of studies, conversation w/ residential solar consultant, review of inpatient medication list Nurse reported continue to have decreased urine output, was on the 75 ml in this 3 hour, patient is more awake and alert today conversational, know her BD and months, but not her year, no daughters name t Problem List Medical Problems: (1) Acute CVA (cerebrovascular accident) Status: Acute (2) Ambulatory dysfunction Status: Acute (3) Elevated troponin Status: Acute (4) Frequent falls Status: Acute (5) Generalized weakness Status: Acute (6) Head injury Status: Acute (7) Hip fracture, left Status: Acute (8) Hypokalemia Status: Acute (9) Scabies Status: Acute (10) Scalp laceration Status: Acute Review of Systems Constitutional: + weakness, + fatigue Eyes: No see HPI, No worsening of vision, No eye pain, No redness, No discharge , No diplopia, No problem reported ENT: No see HPI, No hearing loss, No unusual epistaxis, No nasal symptoms, No sore throat, No tinnitus, No dental problems, No trouble swallowing, No problem reported Respiratory: No see HPI, No cough, No sputum, No wheezing, No shortness of breath, No dyspnea on exertion, No dyspnea at rest, No hemoptysis, No problem reported Cardiac: No see HPI, No chest pain, No orthopnea, No PND, No edema, No claudication, No palpitations, No problem reported Abdomen: No see HPI, No pain, No nausea, No vomiting, No diarrhea, No constipation, No GI bleeding, No problem reported Musculoskeletal: + joint pain (is well controlled) Female : + see HPI Neurologic: + problem reported (mild confused but possible in baseline) Endo: No see HPI, No fatigue, No excessive thirst, No excessive urination, No problem reported Objective Vital Signs Date Time Temp Pulse Resp B/P (MAP) Pulse Ox O2 Delivery O2 Flow Rate FiO2 08/21/17 07:58 Nasal Cannula 2.0 08/21/17 07:57 36.6 65 15 109/57 (74) 100 Nasal Cannula 2.0 08/20/17 23:50 Nasal Cannula 08/20/17 23:06 36.4 74 17 159/91 (113) 93 Nasal Cannula 2.0 08/20/17 15:25 Room Air 08/20/17 15:00 36.7 60 18 156/56 (89) 92 Room Air 08/20/17 12:25 36.3 61 18 129/66 (87) 92 Room Air Physical Exam General Appearance: WD/WN, no apparent distress, + thin, + pertinent finding ( frail) Eyes: normal inspection, PERRL, EOMI, sclerae normal ENT: normal ENT inspection, hearing grossly normal, pharynx normal Neck: supple, no adenopathy, thyroid normal, no JVD, no carotid bruits, trachea midline Respiratory/Chest: chest non-tender, normal breath sounds, no respiratory distress, no accessory muscle use, + decreased breath sounds Cardiovascular: regular rate, rhythm, no edema, no gallop, no JVD, no murmur Abdomen: normal bowel sounds, non tender, soft, no organomegaly, no pulsatile mass Extremities: normal capillary refill, pelvis stable, + pertinent finding (left hip area has some bloody discharge, local no obvious tender olr swelling) Neurologic/Psychiatric: 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 as tested, no motor/sensory deficits, alert, normal mood/affect, oriented x 3 Skin: normal color, warm/dry, no rash Lymphatic: no adenopathy Laboratory Results Last 24 Hours Test 08/21/17 06:20 White Blood Count 8.50 K/uL Red Blood Count 2.96 M/uL Hemoglobin 8.7 g/dL Hematocrit 27.6 % Mean Corpuscular Volume 93.2 fL Mean Corpuscular Hemoglobin 29.4 pg Mean Corpuscular Hemoglobin Concent 31.5 g/dl RDW Standard Deviation 51.5 fL RDW Coefficient of Variation 15.0 % Platelet Count 164 K/uL Mean Platelet Volume 9.9 fL Prothrombin Time 14.7 SECONDS Prothromb Time International Ratio 1.4 Sodium Level 140 mmol/L Potassium Level 4.7 mmol/L Chloride Level 113 mmol/L Carbon Dioxide Level 19 mmol/L Anion Gap 8.0 mmol/L Blood Urea Nitrogen 27 mg/dl Creatinine 1.12 mg/dl Est Creatinine Clear Calc Drug Dose 23.2 ml/min Estimated GFR () 51.2 Estimated GFR (Non- 44.1 BUN/Creatinine Ratio 24.4 Random Glucose 100 mg/dl Calcium Level 8.3 mg/dl Magnesium Level 1.8 mg/dl Assessment and Plan 87 year old female with history of stroke admitted on 08/17/2017 with Left hip fracture, Left hip fracture, was stable in telemetry, orthopedic consulted, transferred to med/surg left hip hemiarthroplasty on 08/19/2017 POD #2 s/p left hip hemiarthroplasty, stable Activities per recommendation by orthopedic surgeon, which is WBAT LLE, Hip precautions, PT/OT when able, continue Pain controlled Continue having decreased urine output, had increased to IV fluid infusion, Low urine color of concentration is better than yesterday Will continue increased IV fluid, bladder scanning, closely monitor urine output Has ordered RENAL ultrasound and bladder ultrasound to rule out obstructive disease Per report on renal ultrasound in below: 1. Very limited study secondary to positioning of the patient and obscuring bowel gas. 2. Right kidney and the majority of the left kidney are not diagnostically visualized. Urinary bladder collapsed with Iniguez catheter. 3. Trace nonspecific perihepatic fluid. Will order CT studies to further define kidney shape and position and rule out [place] nephrosis Acute renal blood loss anemia, with decreased hemoglobin level, possible delusional also contribute to this condition Current hemoglobin 8.7 from 13.4 upon admission, review the surgical note, she only has 70 ml blood lost during procedure, left hip ultrasound was done, no obvious hematoma We'll continue follow-up H/O paroxysmal a. 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 Continued [facility] stay due to: home environment unsafe for pt Discharge planning: custodial facility
--- NOTE | 2017-08-21 12:23 | DIAGNOSTIC IMAGING REPORT ---
ABDOMEN AND PELVIS CT WITHOUT CONTRAST CT DOSE: 688.74 mGy.cm HISTORY: Acutely decreased urine output. decreased urine output and ultrasound not able to define kidneys. Pelvis and left hip radiographs 08/19/2017 TECHNIQUE: Multiaxial CT images of the abdomen and pelvis were performed without contrast. A dose lowering technique was utilized adhering to the principles of ALARA. COMPARISON STUDY: Ultrasound of the kidneys and urinary bladder of same day, CT 10/15/2008, lumbar spine radiograph 06/20/2017. FINDINGS: There are small bilateral layering pleural effusions with subsegmental bibasilar opacities suggesting compressive atelectasis. There are some reticular opacities of the lung bases well suggesting areas of chronic scarring. There is no pneumoperitoneum. Imaged inferior cardiac chambers are mildly enlarged. Coronary arterial, mitral and aortic annular calcifications are present. Nonspecific subcentimeter calcification of the lateral left hepatic lobe. The liver is otherwise unremarkable. There is no intrahepatic biliary ductal dilation. The spleen is diminutive in size, 7.2 cm. Moderate diffuse pancreatic atrophy. The adrenal glands are unremarkable. Layering gallstones are seen within the gallbladder lumen without definite CT evidence of acute cholecystitis. Delayed Prior right-sided nephrectomy. Indeterminate 1.1 cm lesion of the anterior interpolar left kidney is noted suggesting a renal cyst. No left-sided renal calculi or hydronephrosis. The left ureter is unremarkable. Urinary bladder is partially collapsed with a Iniguez catheter in place. Foci of nondependent air seen within the urinary bladder lumen. Extensive atherosclerosis of the abdominal aorta. The uterus appears to be surgically absent. There is fusiform aneurysmal dilation of the infrarenal abdominal aorta, 3.3 x 3.3 cm for a length of the proximal 4.2 cm. Mild fusiform dilation of the right common iliac arteries also seen, 1.7 cm. There is no bulky adenopathy identified. Small sliding-type hiatal hernia. There is no bowel obstruction or focal bowel wall thickening identified. Mild nonspecific free fluid of the pelvis. Post surgical changes of the cecum are noted suggesting prior appendectomy. Moderate diffuse body wall edema. The bones are moderately demineralized. Degenerative changes of the pelvis, hips and spine are noted. 10 mm anterolisthesis L5 on S1 is likely secondary to advanced long-standing facet disease, likely with associated bilateral pars defects. Postoperative changes compatible with recent total left hip arthroplasty are noted with soft tissue swelling, subcutaneous and deep tissue air about the left hip. No large postsurgical fluid collections identified. Compression deformities at T10, T11 and T12 are noted without significant retropulsion. Compression deformities at T11 and T12 appear chronic, however at T10 appears acute to subacute. IMPRESSION: 1. No renal calculi or hydronephrosis. Ill-defined low attenuating lesion of the anterior interpolar left kidney, 1.1 cm suggests cyst, however is not completely characterized on this noncontrast study. Prior right-sided nephrectomy. 2. Findings compatible with fluid overload with trace pelvic ascites, small bilateral pleural effusions and moderate diffuse body wall edema. 3. Cholelithiasis without CT evidence of acute cholecystitis. 4. 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 5. Remote appearing compression deformities at T11 and T12 with acute to subacute compression deformity at T10 without retropulsion. This appears to be new from radiographs 06/20/2017. Correlate with clinical exam and patient history. Electronically signed by: Carlos Lara M.D. 08/21/2017 12:21 PM Dictated Date/Time: 08/21/2017 12:09 PM
[2017-08-21] MEDS ORDERED: PHARMACIST DISCHARGE MED REC CONSULT PRN (14:30)
--- NOTE | 2017-08-21 15:23 | DIAGNOSTIC IMAGING REPORT ---
HEAD WITHOUT CONTRAST (CT) CLINICAL HISTORY: 87 years-old Female with r/o acute CVA. Acute strokelike symptoms. TECHNIQUE: Multiple axial CT images of the head were obtained without contrast. A dose lowering technique was utilized adhering to the principles of ALARA. CT DOSE: 1074.96 mGy.cm COMPARISON: CT head 07/17/2017. FINDINGS: No acute intracranial hemorrhage, midline shift, mass, large territorial ischemia or abnormal extra-axial collection. Moderate cerebral atrophy with ex vacuo ventriculomegaly. Encephalomalacia related to remote infarction is again seen within the right temporal parietal distribution. Severe background chronic microvascular ischemic changes are noted. Remote lacunar infarctions are again seen involving the basal ganglia. The calvarium is intact. The paranasal sinuses, mastoid air cells, and middle ear cavities are clear. IMPRESSION: 1. No acute intracranial abnormality. 2. Atrophy with extensive chronic microvascular ischemic changes, remote basal ganglia lacunar infarctions and encephalomalacia related to remote territorial infarct of the right temporal parietal distribution. The above report was generated using voice recognition software. It may contain grammatical, syntax or spelling errors. Electronically signed by: Carlos Lara M.D. 08/21/2017 3:21 PM Dictated Date/Time: 08/21/2017 3:18 PM
[2017-08-21 17:01] LABS: PROTHROMBIN TIME (PATIENT) 21.9 SECONDS (9.0-12.0)
[2017-08-21] MEDS: FENTANYL PATCH REMOVE & WASTE SCH ×2 (18:03→19:07)
[2017-08-21] MEDS ORDERED: NURSING VERBAL MED ORDER ONE (18:15)
[2017-08-21 18:31] LABS: BASO % 0.1 %; BASO ABS # 0.01 K/uL (0-0.2); EOS % 0.7 %; HEMATOCRIT 26.7 % (37-47); IG% 0.3 %; LYMPH % 10.2 %; LYMPH ABS # 0.76 K/uL (1.2-3.4); MEAN CORPUSCULAR HEMOGLOBIN 30.3 pg (25-34); MEAN PLATELET VOLUME 9.8 fL (7.4-10.4); MONO % 12.5 %; NEUT % 76.2 %; PLATELET COUNT 157 K/uL (130-400); RED BLOOD COUNT 2.87 M/uL (4.2-5.4); WHITE BLOOD COUNT 7.44 K/uL (4.8-10.8)
[2017-08-21 18:36] LABS: MEAN CORPUSCULAR HGB CONC 32.6 g/dl (32-36)
[2017-08-21 19:02] LABS: ALB/GLOB RATIO 0.7 (0.9-2); CALCIUM 8.3 mg/dl (8.5-10.1); CREATININE 1.21 mg/dl (0.60-1.20); POTASSIUM 5.1 mmol/L (3.5-5.1)
[2017-08-21 19:04] LABS: ACANTHOCYTES 1+; COMPLETE YES; ECHINOCYTES 2+
--- NOTE | 2017-08-21 19:32 | DIAGNOSTIC IMAGING REPORT ---
ORBITS FOR MRI HISTORY: 87 years-old Female R/O metal for MRI - around 1900 if possible please. Thanks! Clearance for MRI. COMPARISON: CT head 04/20/2017 TECHNIQUE: 2 radiographs of the orbits were obtained for MRI clearance. FINDINGS: No opaque foreign body of the orbits identified. No acute fracture or dislocation identified. Dental amalgam hardware noted. IMPRESSION: No opaque foreign body. The above report was generated using voice recognition software. It may contain grammatical, syntax or spelling errors. Electronically signed by: Carlos Lara M.D. 08/21/2017 7:31 PM Dictated Date/Time: 08/21/2017 7:29 PM
[2017-08-21] MEDS ORDERED: GADAVIST IV PRN (21:00)
[2017-08-21] MEDS: ATORVASTATIN 20 MG TAB PO SCH (21:00)
--- NOTE | 2017-08-21 21:06 | DIAGNOSTIC IMAGING REPORT ---
BRAIN COMBO HISTORY: 87 years-old Female acute mental status changes, to rule CVA acute altered mental status history of remote infarction with recent fall COMPARISON: CT head of same day, MRI the brain 06/20/2017 TECHNIQUE: Multiplanar multisequence MRI the brain was obtained both with and without the use of 4 mL Gadavist FINDINGS: No restricted diffusion to suggest acute ischemia. The midline structures including the corpus callosum, brainstem, optic chiasm, pituitary and pineal glands are unremarkable the sagittal T1 sequence. No cerebellar tonsillar herniation. Advanced degenerative changes are seen within the imaged upper cervical spine. There is no acute intracranial hemorrhage, midline shift, abnormal extra-axial collections, hydrocephalus or intracranial mass. Encephalomalacia, gliosis and laminar necrosis involves the remote infarction of the right MCA distribution which appears unchanged from comparison. There is background moderate cerebral atrophy with extensive chronic microvascular ischemic changes and ex vacuo ventriculomegaly. Remote lacunar infarctions of the basal ganglia. No abnormal intra-axial or extra-axial enhancement. The major flow voids at the level of the skull base appear patent. Orbits are symmetric. Mastoid air cells and middle ear cavities appear clear. Mild mucosal thickening of the ethmoid air cells. IMPRESSION: 1. No acute intracranial abnormality. No acute ischemia or abnormal enhancement. 2. Atrophy with extensive chronic microvascular ischemic changes. 2. Encephalomalacia, gliosis and laminar necrosis associated with remote right MCA distribution infarction. The above report was generated using voice recognition software. It may contain grammatical, syntax or spelling errors. Electronically signed by: Carlos Lara M.D. 08/21/2017 9:04 PM Dictated Date/Time: 08/21/2017 8:57 PM
[2017-08-22] VITALS (11 sets, daily range): BP systolic 101–188; BP diastolic 52–76; PULSE 53–129; TEMP 36.5–37.1; O2SAT 84–100
[2017-08-22] MEDS: NSS + 20MEQ KCL 1000ML 1,000 ML IV SCH ×5 (01:57→23:16)
[2017-08-22 04:51] LABS: BASO % 0.2 %; BASO ABS # 0.01 K/uL (0-0.2); EOS % 1.7 %; HEMATOCRIT 26.3 % (37-47); IG% 0.2 %; LYMPH ABS # 0.77 K/uL (1.2-3.4); MEAN CELL VOLUME 93.3 fL (80-100); MEAN CORPUSCULAR HEMOGLOBIN 29.8 pg (25-34); MEAN CORPUSCULAR HGB CONC 31.9 g/dl (32-36); MEAN PLATELET VOLUME 9.1 fL (7.4-10.4); MONO % 11.5 %; NEUT % 70.4 %; PLATELET COUNT 147 K/uL (130-400); RED BLOOD COUNT 2.82 M/uL (4.2-5.4)
[2017-08-22 05:02] LABS: INR 1.3 (0.9-1.1); PROTHROMBIN TIME (PATIENT) 13.5 SECONDS (9.0-12.0)
[2017-08-22 05:12] LABS: ACANTHOCYTES 1+; BUN/CREATININE RATIO 22.7 (10-20); CALCIUM 8.2 mg/dl (8.5-10.1); CHOLESTEROL/HDL RATIO 2.1; COMPLETE YES; CREATININE 1.07 mg/dl (0.60-1.20); ECHINOCYTES 2+; MAGNESIUM 1.8 mg/dl (1.8-2.4); PHOSPHORUS 2.2 mg/dl (2.5-4.9)
[2017-08-22] MEDS: ACETAMINOPHEN 325 MG TAB PO SCH ×3 (06:00→20:43)
--- NOTE | 2017-08-22 07:58 | Anesthesiology Progress Note ---
Anesthesia Post Op Note Date & Time Aug 22, 2017 at 07:58 Vital Signs Vital Signs Past 12 Hours Date Time Temp Pulse Resp B/P (MAP) Pulse Ox O2 Delivery O2 Flow Rate FiO2 08/22/17 04:11 36.5 53 16 101/52 (68) 100 Nasal Cannula 2.0 08/22/17 04:00 Nasal Cannula 2.0 08/22/17 00:16 37.0 57 16 116/53 (74) 100 Nasal Cannula 2.0 08/22/17 00:00 Nasal Cannula 2.0 08/21/17 22:10 99 Nasal Cannula 2.0 08/21/17 21:04 36.6 63 18 134/73 (93) 08/21/17 20:55 Nasal Cannula 2.0 Notes Mental Status: alert / awake / arousable, participated in evaluation Pt Amnestic to Procedure: Yes Nausea / Vomiting: adequately controlled Pain: adequately controlled Airway Patency, RR, SpO2: stable & adequate BP & HR: stable & adequate Hydration State: stable & adequate Anesthetic Complications: no major complications apparent
[2017-08-22 09:11] LABS: ESTIMATED AVERAGE GLUCOSE 117 mg/dl; HA1C FLAG Normal (Normal)
--- NOTE | 2017-08-22 09:18 | Neurology Consultation ---
Neurology Consultation Date of Consultation: Aug 22, 2017. Attending Physician: Azam Blanton MD, PhD Primary Care Physician: Anusha Cheek Reason for Consultation: Patient is an 87-year-old, who was asked to see the request of Dr. Blanton, for neurologic consultation regarding acute episode of decreased responsiveness on August 21. History of Present Illness Source: patient, caregiver Her saw this patient in February of 2017. 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 At that time, MR angiography of the head was unremarkable, carotid ultrasound was unremarkable, and echocardiogram showed no significant source of thrombus. Her MRI at that time showed marked generalized atrophy and extensive old small vessel ischemic disease. She was discharged on clopidogrel 75 mg daily. Apparently the patient was admitted in June of this year and was diagnosed with paroxysmal atrial fibrillation. She is followed by Cardiology and saw Dr. Loya August 16. She was noted to have weight loss, bradycardia, and was in sinus rhythm with no further ongoing atrial fibrillation. She last saw pharmacy clinical specialist on August 16. On August 17, in the morning she was getting out of bed and fell injuring her left hip. She arrived to the emergency room at 9:09 a.m. zero nine hours on August 17 with a temperature 36.7, pulse 59 and regular, respiratory rate 20, O2 saturation 88%, and blood pressure 179/78. Plain x-rays revealed a subcapital left hip fracture Chest x-ray was unremarkable. Patient underwent left total hip replacement/repair on June 19. CT scan of the abdomen and pelvis showed an abdominal aortic aneurysm (3 x 3 cm , 4 cm long), some trace ascites, some small bilateral pleural effusions, and a new/subacute T10 compression fracture with old compression fractures at T11 and T12. Laboratory studies revealed an elevated BUN and creatinine on admission which has improved with hydration. Her hemoglobin went from 13 on admission 2112 days later with hydration. Since then it has dropped into the 8's. Electrolytes and magnesium were unremarkable as was a lipid profile and liver profile. Continuous modern has showed no episodes of atrial fibrillation but she is in sinus bradycardia in the high 50s or low 60s. Her blood pressure has been in the 100 over 50s at times. Her August 21, she was being considered for transfer back to the [facility] where she resides, when she had acute confusion and obtundation. No seizure activity was noted. She did not have any focal weakness noted. MRI of the brain showed no acute changes or stroke. There was marked generalized atrophy and extensive small vessel ischemic disease as before. There was a large old right middle cerebral artery territory encephalomalacia. This morning, the patient has no complaint of pain or headache. She is more alert and interactive. Unfortunately, she can not give a good/comprehensive history. 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 Social History Patient smokes approximately a pack of cigarettes per day. She does not consume alcohol. She is retired. She is a . Smoking Status: Current every day smoker Smokeless Tobacco Use: No Alcohol Use: none Drug Use: none Marital Status: Housing Status: long-term Occupation Status: retired Allergies Coded Allergies: Morphine (Verified Allergy, Unknown, hallucinations, 08/17/17) Current Inpatient Medications Current Inpatient Medications Medications (Trade) Dose Ordered Sig/Paco Route Start Time Stop Time Status Last Admin Dose Admin Amlodipine Besylate (Norvasc Tab) 2.5 mg DAILY PO 08/18/17 09:00 09/17/17 08:59 08/21/17 10:08 2.5 MG Atorvastatin Calcium (Lipitor Tab) 20 mg HS PO 08/17/17 21:00 09/16/17 20:59 08/20/17 21:12 20 MG Albuterol/ Ipratropium (Combivent Respimat Inh) 1 puffs QID PRN INH 08/17/17 14:15 09/16/17 14:14 Lisinopril (Zestril Tab) 30 mg DAILY PO 08/18/17 09:00 09/17/17 08:59 08/21/17 10:10 30 MG Magnesium Hydroxide (Milk Of Magnesia Susp) 30 ml Q72H PRN PO 08/17/17 14:15 09/16/17 14:14 Metoprolol Tartrate (Lopressor Tab) 12.5 mg BID PO 08/17/17 21:00 09/16/17 20:59 08/21/17 10:11 12.5 MG Pantoprazole Sodium (Protonix Tab) 40 mg QAM PO 08/19/17 09:00 09/18/17 08:59 08/21/17 10:11 40 MG Acetaminophen 650 mg/Empty Bag 65 ml @ 260 mls/hr Q6H PRN IV 08/19/17 04:00 09/18/17 03:59 Future Hold 08/19/17 10:58 260 MLS/HR Hydromorphone HCl (Dilaudid Inj) 0.25 mg Q6H PRN IV 08/19/17 04:00 09/02/17 03:59 Acetaminophen (Tylenol Tab) 650 mg Q8 PO 08/20/17 02:00 09/19/17 01:59 08/21/17 05:42 650 MG Docusate Sodium (coLACE CAP) 100 mg BID PO 08/20/17 09:00 09/19/17 08:59 08/21/17 10:11 100 MG Multivitamins (Multivitamin Tab) 1 tab QAM PO 08/20/17 09:00 09/19/17 08:59 08/21/17 10:07 1 TAB Ondansetron HCl (Zofran Inj) 4 mg Q6H PRN IV 08/19/17 23:15 09/18/17 23:14 Rivaroxaban (Xarelto Tab) 15 mg Q24H PO 08/20/17 08:00 09/19/17 07:59 08/21/17 07:53 15 MG Tramadol HCl (Ultram Tab) 50 mg Q4H PRN PO 08/20/17 00:30 09/19/17 00:29 08/20/17 06:02 50 MG Potassium Chloride/Sodium Chloride 1,000 ml @ 150 mls/hr Q6H40M IV 08/21/17 07:30 09/20/17 07:29 08/22/17 01:57 150 MLS/HR Miscellaneous Information (Pharmacist Discharge Med Rec Consult) 1 ea UD PRN N/A 08/21/17 14:30 09/20/17 14:29 Gadobutrol (Gadavist) 4 mmol UD PRN IV 08/21/17 21:00 08/25/17 20:59 Review of Systems Review of systems is very difficult to obtain because the patient cannot answer these types of questions adequately. Constitutional: + fatigue Eyes: No diplopia ENT: + hearing loss Respiratory: No cough, No shortness of breath Cardiovascular: No chest pain, No palpitations Abdomen: No pain Musculoskeletal: + joint pain, No muscle pain Neurologic: + memory loss, + weakness, No numbness/tingling Psychiatric: No depression symptoms Endocrine: + fatigue Hematologic / Lymphatic: No abnormal bleeding/bruising Integumentary: No rash Allergic / Immunologic: No hives Physical Exam Vital Signs (Past 24 Hrs): Date Time Temp Pulse Resp B/P (MAP) Pulse Ox O2 Delivery O2 Flow Rate FiO2 08/22/17 04:11 36.5 53 16 101/52 (68) 100 Nasal Cannula 2.0 08/22/17 04:00 Nasal Cannula 2.0 08/22/17 00:16 37.0 57 16 116/53 (74) 100 Nasal Cannula 2.0 08/22/17 00:00 Nasal Cannula 2.0 08/21/17 22:10 99 Nasal Cannula 2.0 08/21/17 21:04 36.6 63 18 134/73 (93) 08/21/17 20:55 Nasal Cannula 2.0 08/21/17 17:00 100 Nasal Cannula 2.0 08/21/17 16:14 36.4 59 18 120/55 (76) 100 Nasal Cannula 2.0 08/21/17 15:41 36.5 58 20 112/64 (80) 94 Nasal Cannula 2.0 08/21/17 14:30 95 Nasal Cannula 2.0 08/21/17 14:20 36.7 64 16 114/67 (83) 92 Room Air 11/12/17 10:00 95 Room Air Patient is right-handed. The patient is awake and alert. Speech is remarkable for some word-finding difficulties and I suspect some motor a aphasia. There is no significant dysarthria. Mood is reasonable, and affect is somewhat flat. She hearing loss which helps and to the picture of confusion. Although her memory seems poor on the surface, because she can't readily name things when giving a series of multiple choice she readily identifies the correct answer, such as her name, where she is from. She does not know month year or where she is now. She has no recall of events of falling and fracturing her hip. The discs are sharp with positive venous pulsations. There are no exudates, hemorrhages, or blood vessel changes seen. Pupils are 3mm bilaterally and reactive to light. Extraocular eye muscles are intact without nystagmus. There is a rather dense left homonymous hemianopsia present. There are no deficits to sensation of the face bilaterally. Corneal reflexes are positive bilaterally. Facial strength and symmetry is normal bilaterally. Palate moves well without asymmetry. There is normal sternocleidomastoid and trapezius strength bilaterally. Tongue is midline with good strength bilaterally. Neck is with full range of motion without discomfort. There are no cervical bruits. There are no cranial or ocular bruits. Heart is without murmur. Cervical, thoracic, and lumbar spine are nontender to palpation. Gait is not testable as she is lying flat in bed with a device to keep her legs in 1 place because of her hip fracture. With outstretched arms there i no drift, but she does have upper extremity weakness or arms will fall. There are no resting, postural, or action tremors. There is no obvious ataxia with [id number] testing. There is decreased facility in the hands, left greater than right side. There are no abnormal involuntary movements noted. Motor strength is symmetrical in the upper extremities. Deltoids are 4/5 bilaterally for age. Biceps, triceps, and rotary swaging machine operator are close to 5/5 bilaterally for age. Leg strength could not be adequately tested because her feet are strapped into a cushion device to not allow her legs to move. Feet have symmetrical movement. The arms have good tone without rigidity or spasticity, and there is no atrophy noted. Like tone could not be adequately tested. Muscle bulk is normal, there is no tenderness, no myotonia noted to percussion, and no fasciculations seen. Sensory examination is intact to pin and touch throughout all four limbs. Reflexes are 1/4 in the biceps, triceps, and brachioradialis tendons bilaterally. Quadriceps and Achilles tendon reflexes seem absent bilaterally. Toes are essentially upgoing with plantar stimulation on the right and left. Peripheral pulses are present and of normal quality distally in all four limbs. There is no peripheral edema noted. Laboratory Results Past 24 Hours: 08/22/17 04:38 Red Blood Count 2.82, Mean Corpuscular Volume 93.3, Mean Corpuscular Hemoglobin 29.8, Mean Corpuscular Hemoglobin Concent 31.9, Mean Platelet Volume 9.1, Neutrophils (%) (Auto) 70.4, Lymphocytes (%) (Auto) 16.0, Monocytes (%) (Auto) 11.5, Eosinophils (%) (Auto) 1.7, Basophils (%) (Auto) 0.2, Neutrophils # (Auto ) 3.38, Lymphocytes # (Auto) 0.77, Monocytes # (Auto) 0.55, Eosinophils # (Auto ) 0.08, Basophils # (Auto) 0.01 08/22/17 04:38 Test 08/21/17 18:12 08/22/17 04:38 Total Bilirubin 0.2 mg/dl (0.2-1) Aspartate Amino Transf (AST/SGOT) 30 U/L (15-37) Alanine Aminotransferase (ALT/SGPT) 14 U/L (12-78) Alkaline Phosphatase 76 U/L (45-117) Total Protein 5.3 gm/dl (6.4-8.2) Albumin 2.1 gm/dl (3.4-5.0) Globulin 3.2 gm/dl (2.5-4.0) Albumin/Globulin Ratio 0.7 (0.9-2) Vitamin B12 Level 862 pg/mL (211-911) Folate 17.37 ng/mL (>5.38) White Blood Count 4.80 K/uL (4.8-10.8) Red Blood Count 2.82 M/uL (4.2-5.4) Hemoglobin 8.4 g/dL (12.0-16.0) Hematocrit 26.3 % (37-47) Mean Corpuscular Volume 93.3 fL (80-100) Mean Corpuscular Hemoglobin 29.8 pg (25-34) Mean Corpuscular Hemoglobin Concent 31.9 g/dl (32-36) Platelet Count 147 K/uL (130-400) Mean Platelet Volume 9.1 fL (7.4-10.4) Neutrophils (%) (Auto) 70.4 % Lymphocytes (%) (Auto) 16.0 % Monocytes (%) (Auto) 11.5 % Eosinophils (%) (Auto) 1.7 % Basophils (%) (Auto) 0.2 % Neutrophils # (Auto) 3.38 K/uL (1.4-6.5) Lymphocytes # (Auto) 0.77 K/uL (1.2-3.4) Monocytes # (Auto) 0.55 K/uL (0.11-0.59) Eosinophils # (Auto) 0.08 K/uL (0-0.5) Basophils # (Auto) 0.01 K/uL (0-0.2) RDW Standard Deviation 54.2 fL (36.4-46.3) RDW Coefficient of Variation 15.6 % (11.5-14.5) Immature Granulocyte % (Auto) 0.2 % Immature Granulocyte # (Auto) 0.01 K/uL (0.00-0.02) Basophilic Stippling 1+ Echinocytes 2+ Acanthocytes 1+ Prothrombin Time 13.5 SECONDS (9.0-12.0) Prothromb Time International Ratio 1.3 (0.9-1.1) Anion Gap 9.0 mmol/L (3-11) Est Creatinine Clear Calc Drug Dose 24.3 ml/min Estimated GFR () 54.1 Estimated GFR (Non- 46.6 BUN/Creatinine Ratio 22.7 (10-20) Calcium Level 8.2 mg/dl (8.5-10.1) Phosphorus Level 2.2 mg/dl (2.5-4.9) Magnesium Level 1.8 mg/dl (1.8-2.4) Ammonia < 10.0 umol/L (11-32) Triglycerides Level 81 mg/dl (0-150) Cholesterol Level 107 mg/dl (0-200) HDL Cholesterol 52 mg/dl LDL Cholesterol, Calculated 39 mg/dl VLDL Cholesterol, Calculated 16 mg/dl Cholesterol/HDL Ratio 2.1 Imaging BRAIN COMBO HISTORY: 87 years-old Female acute mental status changes, to rule CVA acute altered mental status history of remote infarction with recent fall COMPARISON: CT head of same day, MRI the brain 06/20/2017 TECHNIQUE: Multiplanar multisequence MRI the brain was obtained both with and without the use of 4 mL Gadavist FINDINGS: No restricted diffusion to suggest acute ischemia. The midline structures including the corpus callosum, brainstem, optic chiasm, pituitary and pineal glands are unremarkable the sagittal T1 sequence. No cerebellar tonsillar herniation. Advanced degenerative changes are seen within the imaged upper cervical spine. There is no acute intracranial hemorrhage, midline shift, abnormal extra-axial collections, hydrocephalus or intracranial mass. Encephalomalacia, gliosis and laminar necrosis involves the remote infarction of the right MCA distribution which appears unchanged from comparison. There is background moderate cerebral atrophy with extensive chronic microvascular ischemic changes and ex vacuo ventriculomegaly. Remote lacunar infarctions of the basal ganglia. No abnormal intra-axial or extra-axial enhancement. The major flow voids at the level of the skull base appear patent. Orbits are symmetric. Mastoid air cells and middle ear cavities appear clear. Mild mucosal thickening of the ethmoid air cells. IMPRESSION: 1. No acute intracranial abnormality. No acute ischemia or abnormal enhancement. 2. Atrophy with extensive chronic microvascular ischemic changes. 2. Encephalomalacia, gliosis and laminar necrosis associated with remote right MCA distribution infarction. The above report was generated using voice recognition software. It may contain grammatical, syntax or spelling errors. Electronically signed by: Carlos Lara M.D. 08/21/2017 9:04 PM Impression 1. Acute cephalopathy August 21. She is improving from this and is much more responsive. I believe this event has a multifactorial origin. She had major surgery with a secondary anemia, fluid status problems, narcotic pain medication, and hypotension. 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 I do not see any focal neurologic signs otherwise. She did not have an acute stroke by MRI. There is no evidence to suggest seizure activity (although it is theoretically possible)-EEG is pending. 2. 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 This is stable 3. Extensive atrophy and old small vessel ischemic changes with probable vascular dementia. This is stable. 4. The other risk factors for small vessel ischemic disease including hypertension and dyslipidemia, stable 5. History of paroxysmal atrial fibrillation on Xarelto June 2017, currently in normal sinus rhythm. 6. Fall August 17 with left hip fracture requiring left total hip replacement 7. History of right breast adenocarcinoma, post lumpectomy, with no information regarding status of adenocarcinoma, but presumed in remission/stable 8. 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 I see no need for additional neurologic testing 2. Awaiting EEG from this morning. 3. Consider TSH and urinalysis 4. The main issue with treatment revolves around anticoagulation verses antiplatelet medication versus both. Technically, she would need an 81 mg aspirin, or 75 mg clopidogrel daily to prevent small vessel ischemic disease progression. In addition she should be on an anticoagulant such as Xarelto if she is in paroxysmal atrial fibrillation. The problem is she is advanced in years at 87 with multiple issues including fall risk. If fall risk can be minimized then she could be on both. Just being on one or the other will not adequately cover her stroke risk otherwise. I spoke with Dr. Hylton regarding this case including treatment options and differential diagnoses. Overall, I spent 120 minutes with this case including records review, care at the bedside, and discussion with nursing and physicians involved with her care.
--- NOTE | 2017-08-22 09:19 | Medical Student: [facility] ---
Consultation Date of Consultation: Aug 22, 2017. Attending Physician: Dr. Borges Reason for Consultation: Altered mental status History of Present Illness pt is an 87 yo F s/p left hip hemiarthroplasty who presents with altered mental status. She is a resident at a [facility] and fell on 08/17 out of bed while going to the bathroom. She broke her hip from the fall and underwent surgery on 08/19. She was getting ready for discharge until on the 08/21 at around 1430 when she had an acute change in mental status. There was mild slurring of speech , no facial droop, and decrease in mental status / lethargy. Family member was around at the time and reported that she had a big change from her baseline, which involved her being awake, oriented, and feeding herself. 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 According to notes, she had been responsive to verbal stimulus, not making attempts to communicate, and able to hold arms against gravity bilaterally. Hx notable for stroke, paroxysmal aFib, HTN, R left nephrectomy, and R breast adenocarcinoma s/p lumpectomy. Pt is alert this morning. She currently reports pain from the surgery. ROS and history/HPI hard to obtain from pt due to pt's current state. Past Medical/Surgical History Medical History: Hyperlipidemia, hypertension, paroxysmal atrial fibrillation, bradycardia, right MCA stroke Surgical History: R nephrectomy R breast lumpectomy for breast adenocarcinoma Appendectomy Social History Smoking Status: Current Every Day Smoker History of Alcohol Use: No Drug Use: none Marital Status: Housing Status: lives with family Occupation Status: retired Review of Systems Musculoskeletal: + see HPI Allergies Coded Allergies: Morphine (Verified Allergy, Unknown, hallucinations, 08/17/17) Medications Current Inpatient Medications Medications (Trade) Dose Ordered Sig/Paco Route Start Time Stop Time Status Last Admin Dose Admin Amlodipine Besylate (Norvasc Tab) 2.5 mg DAILY PO 08/18/17 09:00 09/17/17 08:59 08/21/17 10:08 2.5 MG Atorvastatin Calcium (Lipitor Tab) 20 mg HS PO 08/17/17 21:00 09/16/17 20:59 08/20/17 21:12 20 MG Albuterol/ Ipratropium (Combivent Respimat Inh) 1 puffs QID PRN INH 08/17/17 14:15 09/16/17 14:14 Lisinopril (Zestril Tab) 30 mg DAILY PO 08/18/17 09:00 09/17/17 08:59 08/21/17 10:10 30 MG Magnesium Hydroxide (Milk Of Magnesia Susp) 30 ml Q72H PRN PO 08/17/17 14:15 09/16/17 14:14 Metoprolol Tartrate (Lopressor Tab) 12.5 mg BID PO 08/17/17 21:00 09/16/17 20:59 08/21/17 10:11 12.5 MG Pantoprazole Sodium (Protonix Tab) 40 mg QAM PO 08/19/17 09:00 09/18/17 08:59 08/21/17 10:11 40 MG Acetaminophen 650 mg/Empty Bag 65 ml @ 260 mls/hr Q6H PRN IV 08/19/17 04:00 09/18/17 03:59 Future Hold 08/19/17 10:58 260 MLS/HR Hydromorphone HCl (Dilaudid Inj) 0.25 mg Q6H PRN IV 08/19/17 04:00 09/02/17 03:59 Acetaminophen (Tylenol Tab) 650 mg Q8 PO 08/20/17 02:00 09/19/17 01:59 08/21/17 05:42 650 MG Docusate Sodium (coLACE CAP) 100 mg BID PO 08/20/17 09:00 09/19/17 08:59 08/21/17 10:11 100 MG Multivitamins (Multivitamin Tab) 1 tab QAM PO 08/20/17 09:00 09/19/17 08:59 08/21/17 10:07 1 TAB Ondansetron HCl (Zofran Inj) 4 mg Q6H PRN IV 08/19/17 23:15 09/18/17 23:14 Rivaroxaban (Xarelto Tab) 15 mg Q24H PO 08/20/17 08:00 09/19/17 07:59 08/21/17 07:53 15 MG Tramadol HCl (Ultram Tab) 50 mg Q4H PRN PO 08/20/17 00:30 09/19/17 00:29 08/20/17 06:02 50 MG Potassium Chloride/Sodium Chloride 1,000 ml @ 150 mls/hr Q6H40M IV 08/21/17 07:30 09/20/17 07:29 08/22/17 01:57 150 MLS/HR Miscellaneous Information (Pharmacist Discharge Med Rec Consult) 1 ea UD PRN N/A 08/21/17 14:30 09/20/17 14:29 Gadobutrol (Gadavist) 4 mmol UD PRN IV 08/21/17 21:00 08/25/17 20:59 Physical Exam Date Time Temp Pulse Resp B/P (MAP) Pulse Ox O2 Delivery O2 Flow Rate FiO2 08/22/17 04:11 36.5 53 16 101/52 (68) 100 Nasal Cannula 2.0 08/22/17 04:00 Nasal Cannula 2.0 08/22/17 00:16 37.0 57 16 116/53 (74) 100 Nasal Cannula 2.0 08/22/17 00:00 Nasal Cannula 2.0 08/21/17 22:10 99 Nasal Cannula 2.0 08/21/17 21:04 36.6 63 18 134/73 (93) 08/21/17 20:55 Nasal Cannula 2.0 08/21/17 17:00 100 Nasal Cannula 2.0 08/21/17 16:14 36.4 59 18 120/55 (76) 100 Nasal Cannula 2.0 08/21/17 15:41 36.5 58 20 112/64 (80) 94 Nasal Cannula 2.0 08/21/17 14:30 95 Nasal Cannula 2.0 08/21/17 14:20 36.7 64 16 114/67 (83) 92 Room Air 08/21/17 10:00 95 Room Air Eyes: bilateral eyes normal inspection, bilateral eyes PERRL Neck: supple Cardiovascular: no edema Neurologic/Psychiatric: normal mood/affect Skin: normal color, warm/dry Mental Status - Pt knows her name and where she lives when given answer choices. Pt has word finding difficulty, possibly from motor aphasia. 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3 White Blood Count 7.44 K/uL 4.80 K/uL Red Blood Count 2.87 M/uL 2.82 M/uL Hemoglobin 8.7 g/dL 8.4 g/dL Hematocrit 26.7 % 26.3 % Mean Corpuscular Volume 93.0 fL 93.3 fL Mean Corpuscular Hemoglobin 30.3 pg 29.8 pg Mean Corpuscular Hemoglobin Concent 32.6 g/dl 31.9 g/dl Platelet Count 157 K/uL 147 K/uL Mean Platelet Volume 9.8 fL 9.1 fL Neutrophils (%) (Auto) 76.2 % 70.4 % Lymphocytes (%) (Auto) 10.2 % 16.0 % Monocytes (%) (Auto) 12.5 % 11.5 % Eosinophils (%) (Auto) 0.7 % 1.7 % Basophils (%) (Auto) 0.1 % 0.2 % Neutrophils # (Auto) 5.67 K/uL 3.38 K/uL Lymphocytes # (Auto) 0.76 K/uL 0.77 K/uL Monocytes # (Auto) 0.93 K/uL 0.55 K/uL Eosinophils # (Auto) 0.05 K/uL 0.08 K/uL Basophils # (Auto) 0.01 K/uL 0.01 K/uL RDW Standard Deviation 52.9 fL 54.2 fL RDW Coefficient of Variation 15.4 % 15.6 % Immature Granulocyte % (Auto) 0.3 % 0.2 % Immature Granulocyte # (Auto) 0.02 K/uL 0.01 K/uL Echinocytes 2+ 2+ Acanthocytes 1+ 1+ Sodium Level 143 mmol/L 144 mmol/L Potassium Level 5.1 mmol/L 5.0 mmol/L Chloride Level 114 mmol/L 115 mmol/L Carbon Dioxide Level 23 mmol/L 20 mmol/L Anion Gap 6.0 mmol/L 9.0 mmol/L Blood Urea Nitrogen 27 mg/dl 24 mg/dl Creatinine 1.21 mg/dl 1.07 mg/dl Est Creatinine Clear Calc Drug Dose 21.5 ml/min 24.3 ml/min Estimated GFR () 46.6 54.1 Estimated GFR (Non- 40.2 46.6 BUN/Creatinine Ratio 22.0 22.7 Random Glucose 102 mg/dl 76 mg/dl Calcium Level 8.3 mg/dl 8.2 mg/dl Total Bilirubin 0.2 mg/dl Aspartate Amino Transf (AST/SGOT) 30 U/L Alanine Aminotransferase (ALT/SGPT) 14 U/L Alkaline Phosphatase 76 U/L Total Protein 5.3 gm/dl Albumin 2.1 gm/dl Globulin 3.2 gm/dl Albumin/Globulin Ratio 0.7 Vitamin B12 Level 862 pg/mL Folate 17.37 ng/mL Basophilic Stippling 1+ Phosphorus Level 2.2 mg/dl Magnesium Level 1.8 mg/dl Ammonia < 10.0 umol/L Triglycerides Level 81 mg/dl Cholesterol Level 107 mg/dl HDL Cholesterol 52 mg/dl LDL Cholesterol, Calculated 39 mg/dl VLDL Cholesterol, Calculated 16 mg/dl Cholesterol/HDL Ratio 2.1 Assessment & Plan Pt is an 87 yo F s/p L hip hemiarthroplasty who presents with altered mental status. She had a large MCA stroke back in February which resulted in weakness, motor aphasia, word-finding difficulty, and L homonymous hemianopsia. She seems to be improving compared to when the change in mental status first occurred. CT and MRI did not show signs of acute changes and were notable for old infarcts and significant atrophy. Pt may have dementia at baseline. DDx - Multifactorial/metabolic/delirium (most likely due to major surgery, fluid status, hypotension, anemia, pain medication, old MCA stroke and brain atrophy) - Stroke (unlikely due to negative findings on imaging and absence of focal neurological deficits on physical examination) - TIA (less likely due to no report of focal neurological deficits and evidence for multi-factorial causes of her symptoms) - Postictal state from seizure (less likely given no witnessed episode of seizure-like activity) Plan - Assess and minimize fall risk. Pt is currently on Xarelto which does not reduce risk of small vessel ischemic disease. Consider anti-platelet therapy with aspirin or clopidogrel. Assess fall risk. - Consider TSH and urinalysis - No further neurological w/u needed - Assess and control her current risk factors w/ medical management ( hyperlipidemia, HTN, aFib)
[2017-08-22] MEDS: RIVAROXABAN TAB 15 MG TAB PO SCH (09:26)
[2017-08-22] MEDS: MULTIVITAMIN TAB PO SCH (09:27)
[2017-08-22] MEDS: AMLODIPINE BESYLATE 5 MG TAB PO SCH (09:27)
[2017-08-22] MEDS: PANTOprazole SOD 40 MG TAB PO SCH (09:27)
[2017-08-22] MEDS: METOPROLOL TARTRATE 25 MG TAB PO SCH ×2 (09:27→20:40)
[2017-08-22] MEDS: DOCUSATE SODIUM 100 MG CAP PO SCH ×3 (09:28→20:43)
[2017-08-22] MEDS: LISINOPRIL 10 MG TAB PO SCH (09:28)
[2017-08-22] MEDS: TRAMADOL HCL 50 MG TAB PO PRN (09:45)
--- NOTE | 2017-08-22 10:44 | Orthopedic Progress Note ---
Orthopedic Progress Note Date of Service Aug 22, 2017. Subjective Additional Notes: Patient seen laying in bed, abduction pillow in place, denies pain, patient confused, no acute issues overnight. Objective N/V intact, capillary refill less than 2 sec, actively moves foot/toes, does not follow instructions, compartments soft, NT Silverlon dressing in place, cdi No obvious hematoma, no fluctuance with palpation. . No erythema or streaking noted at the hip incision. Date Time Temp Pulse Resp B/P (MAP) Pulse Ox O2 Delivery O2 Flow Rate FiO2 08/22/17 07:28 36.7 129 20 135/68 (90) 91 Room Air 08/22/17 04:11 36.5 53 16 101/52 (68) 100 Nasal Cannula 2.0 08/22/17 04:00 Nasal Cannula 2.0 08/22/17 00:16 37.0 57 16 116/53 (74) 100 Nasal Cannula 2.0 08/22/17 00:00 Nasal Cannula 2.0 08/21/17 22:10 99 Nasal Cannula 2.0 08/21/17 21:04 36.6 63 18 134/73 (93) 08/21/17 20:55 Nasal Cannula 2.0 08/21/17 17:00 100 Nasal Cannula 2.0 08/21/17 16:14 36.4 59 18 120/55 (76) 100 Nasal Cannula 2.0 08/21/17 15:41 36.5 58 20 112/64 (80) 94 Nasal Cannula 2.0 08/21/17 14:30 95 Nasal Cannula 2.0 08/21/17 14:20 36.7 64 16 114/67 (83) 92 Room Air Laboratory Results 24 Hours: Test 08/21/17 16:30 08/21/17 18:12 08/22/17 04:38 Prothromb Time International Ratio 2.0 1.3 Prothrombin Time 21.9 SECONDS 13.5 SECONDS White Blood Count 7.44 K/uL 4.80 K/uL Red Blood Count 2.87 M/uL 2.82 M/uL Hemoglobin 8.7 g/dL 8.4 g/dL Hematocrit 26.7 % 26.3 % Mean Corpuscular Volume 93.0 fL 93.3 fL Mean Corpuscular Hemoglobin 30.3 pg 29.8 pg Mean Corpuscular Hemoglobin Concent 32.6 g/dl 31.9 g/dl Platelet Count 157 K/uL 147 K/uL Mean Platelet Volume 9.8 fL 9.1 fL Neutrophils (%) (Auto) 76.2 % 70.4 % Lymphocytes (%) (Auto) 10.2 % 16.0 % Monocytes (%) (Auto) 12.5 % 11.5 % Eosinophils (%) (Auto) 0.7 % 1.7 % Basophils (%) (Auto) 0.1 % 0.2 % Neutrophils # (Auto) 5.67 K/uL 3.38 K/uL Lymphocytes # (Auto) 0.76 K/uL 0.77 K/uL Monocytes # (Auto) 0.93 K/uL 0.55 K/uL Eosinophils # (Auto) 0.05 K/uL 0.08 K/uL Basophils # (Auto) 0.01 K/uL 0.01 K/uL Assessment & Plan Assessment: POD #3 s/p left hip hemiarthroplasty Plan: WBAT LLE when able to ambulate with assistive device/aids Posterior hip precautions PT/OT when able Maintain Silverlon dressing unless becomes saturated then may change on a PRN basis. DVT PPX - Eliquis restarted Pain controlled AM labs - hgb 8.4, stable D/C planning--per medicine -IVF -Pain controlled -Hira Will sign off on patient, jury consultant recommendations left in chart, will need to be seen 14 days after surgery Inhouse Planning Pain Management: Ultram, Dilaudid, other (Fentanyl) DVT Prophylaxis: Xarelto Discharge Planning Discharge Planning: uncertain
--- NOTE | 2017-08-22 13:24 | Hospitalist Progress Note ---
Hospitalist Progress Note Date of Service Aug 22, 2017. (Elzbieta Orr PA-C) Subjective Pt evaluation today including: conversation w/ patient, physical exam, chart review, lab review, review of studies, review of inpatient medication list Patient seen and evaluated. Mentation improved and follows commands. Is [place] and has difficulty seeing on L side. Suspect this may have been the result of hospital delirium but likely multifactorial. No signs of CVA and neurology recommending to maximize CVA risk reduction if falls can be reduced. May need to implement as outpatient pending improvement. Verbalized no needs at this time. Reporting now pain. Hemoglobin remaining low at 8.4 but stable. Constitutional: No fever, No chills Respiratory: No cough, No shortness of breath Cardiovascular: No chest pain, No palpitations Abdomen: No pain, No nausea, No vomiting Musculoskeletal: No joint pain Heme: No abnormal bleeding/bruising Skin: No rash (Elzbieta Orr PA-C) Medications Current Inpatient Medications Medications (Trade) Dose Ordered Sig/Paco Route Start Time Stop Time Status Last Admin Dose Admin Amlodipine Besylate (Norvasc Tab) 2.5 mg DAILY PO 08/18/17 09:00 09/17/17 08:59 08/22/17 09:27 2.5 MG Atorvastatin Calcium (Lipitor Tab) 20 mg HS PO 08/17/17 21:00 09/16/17 20:59 08/20/17 21:12 20 MG Albuterol/ Ipratropium (Combivent Respimat Inh) 1 puffs QID PRN INH 08/17/17 14:15 09/16/17 14:14 Lisinopril (Zestril Tab) 30 mg DAILY PO 08/18/17 09:00 09/17/17 08:59 08/22/17 09:28 30 MG Magnesium Hydroxide (Milk Of Magnesia Susp) 30 ml Q72H PRN PO 08/17/17 14:15 09/16/17 14:14 08/22/17 09:45 30 ML Metoprolol Tartrate (Lopressor Tab) 12.5 mg BID PO 08/17/17 21:00 09/16/17 20:59 08/22/17 09:27 12.5 MG Pantoprazole Sodium (Protonix Tab) 40 mg QAM PO 08/19/17 09:00 09/18/17 08:59 08/22/17 09:27 40 MG Acetaminophen 650 mg/Empty Bag 65 ml @ 260 mls/hr Q6H PRN IV 08/19/17 04:00 09/18/17 03:59 Future Hold 08/19/17 10:58 260 MLS/HR Hydromorphone HCl (Dilaudid Inj) 0.25 mg Q6H PRN IV 08/19/17 04:00 09/02/17 03:59 Acetaminophen (Tylenol Tab) 650 mg Q8 PO 08/20/17 02:00 09/19/17 01:59 08/21/17 05:42 650 MG Docusate Sodium (coLACE CAP) 100 mg BID PO 08/20/17 09:00 09/19/17 08:59 08/21/17 10:11 100 MG Multivitamins (Multivitamin Tab) 1 tab QAM PO 08/20/17 09:00 09/19/17 08:59 08/22/17 09:27 1 TAB Ondansetron HCl (Zofran Inj) 4 mg Q6H PRN IV 08/19/17 23:15 09/18/17 23:14 Rivaroxaban (Xarelto Tab) 15 mg Q24H PO 08/20/17 08:00 09/19/17 07:59 08/22/17 09:26 15 MG Tramadol HCl (Ultram Tab) 50 mg Q4H PRN PO 08/20/17 00:30 09/19/17 00:29 08/22/17 09:45 50 MG Potassium Chloride/Sodium Chloride 1,000 ml @ 150 mls/hr Q6H40M IV 08/21/17 07:30 09/20/17 07:29 08/22/17 09:04 150 MLS/HR Miscellaneous Information (Pharmacist Discharge Med Rec Consult) 1 ea UD PRN N/A 08/21/17 14:30 09/20/17 14:29 Gadobutrol (Gadavist) 4 mmol UD PRN IV 08/21/17 21:00 08/25/17 20:59 (Elzbieta Orr, ROXANA) Objective Vital Signs Date Time Temp Pulse Resp B/P (MAP) Pulse Ox O2 Delivery O2 Flow Rate FiO2 08/22/17 12:00 93 Nasal Cannula 2.0 08/22/17 11:11 36.8 69 20 165/75 (105) 95 Nasal Cannula 2.0 08/22/17 08:00 91 Room Air 08/22/17 07:28 36.7 129 20 135/68 (90) 91 Room Air 08/22/17 04:11 36.5 53 16 101/52 (68) 100 Nasal Cannula 2.0 08/22/17 04:00 Nasal Cannula 2.0 08/22/17 00:16 37.0 57 16 116/53 (74) 100 Nasal Cannula 2.0 08/22/17 00:00 Nasal Cannula 2.0 08/21/17 22:10 99 Nasal Cannula 2.0 08/21/17 21:04 36.6 63 18 134/73 (93) 08/21/17 20:55 Nasal Cannula 2.0 08/21/17 17:00 100 Nasal Cannula 2.0 08/21/17 16:14 36.4 59 18 120/55 (76) 100 Nasal Cannula 2.0 08/21/17 15:41 36.5 58 20 112/64 (80) 94 Nasal Cannula 2.0 08/21/17 14:30 95 Nasal Cannula 2.0 08/21/17 14:20 36.7 64 16 114/67 (83) 92 Room Air (Elzbieta Orr PA-C) Physical Exam General Appearance: no apparent distress Neck: supple, no JVD, trachea midline Respiratory/Chest: lungs clear, no respiratory distress, no accessory muscle use, + decreased breath sounds (diminished) Cardiovascular: regular rate, rhythm Abdomen: normal bowel sounds, non tender, soft Extremities: + pertinent finding (dressing C/D/I to L hip) Neurologic/Psychiatric: alert Skin: normal color, warm/dry (Elzbieta Orr, PA-C) Laboratory Results Last 24 Hours Test 08/21/17 16:30 08/21/17 18:12 08/22/17 04:38 Prothrombin Time 21.9 SECONDS 13.5 SECONDS Prothromb Time International Ratio 2.0 1.3 White Blood Count 7.44 K/uL 4.80 K/uL Red Blood Count 2.87 M/uL 2.82 M/uL Hemoglobin 8.7 g/dL 8.4 g/dL Hematocrit 26.7 % 26.3 % Mean Corpuscular Volume 93.0 fL 93.3 fL Mean Corpuscular Hemoglobin 30.3 pg 29.8 pg Mean Corpuscular Hemoglobin Concent 32.6 g/dl 31.9 g/dl Platelet Count 157 K/uL 147 K/uL Mean Platelet Volume 9.8 fL 9.1 fL Neutrophils (%) (Auto) 76.2 % 70.4 % Lymphocytes (%) (Auto) 10.2 % 16.0 % Monocytes (%) (Auto) 12.5 % 11.5 % Eosinophils (%) (Auto) 0.7 % 1.7 % Basophils (%) (Auto) 0.1 % 0.2 % Neutrophils # (Auto) 5.67 K/uL 3.38 K/uL Lymphocytes # (Auto) 0.76 K/uL 0.77 K/uL Monocytes # (Auto) 0.93 K/uL 0.55 K/uL Eosinophils # (Auto) 0.05 K/uL 0.08 K/uL Basophils # (Auto) 0.01 K/uL 0.01 K/uL RDW Standard Deviation 52.9 fL 54.2 fL RDW Coefficient of Variation 15.4 % 15.6 % Immature Granulocyte % (Auto) 0.3 % 0.2 % Immature Granulocyte # (Auto) 0.02 K/uL 0.01 K/uL Echinocytes 2+ 2+ Acanthocytes 1+ 1+ Sodium Level 143 mmol/L 144 mmol/L Potassium Level 5.1 mmol/L 5.0 mmol/L Chloride Level 114 mmol/L 115 mmol/L Carbon Dioxide Level 23 mmol/L 20 mmol/L Anion Gap 6.0 mmol/L 9.0 mmol/L Blood Urea Nitrogen 27 mg/dl 24 mg/dl Creatinine 1.21 mg/dl 1.07 mg/dl Est Creatinine Clear Calc Drug Dose 21.5 ml/min 24.3 ml/min Estimated GFR () 46.6 54.1 Estimated GFR (Non- 40.2 46.6 BUN/Creatinine Ratio 22.0 22.7 Random Glucose 102 mg/dl 76 mg/dl Calcium Level 8.3 mg/dl 8.2 mg/dl Total Bilirubin 0.2 mg/dl Aspartate Amino Transf (AST/SGOT) 30 U/L Alanine Aminotransferase (ALT/SGPT) 14 U/L Alkaline Phosphatase 76 U/L Total Protein 5.3 gm/dl Albumin 2.1 gm/dl Globulin 3.2 gm/dl Albumin/Globulin Ratio 0.7 Vitamin B12 Level 862 pg/mL Folate 17.37 ng/mL Basophilic Stippling 1+ Phosphorus Level 2.2 mg/dl Magnesium Level 1.8 mg/dl Ammonia < 10.0 umol/L Triglycerides Level 81 mg/dl Cholesterol Level 107 mg/dl HDL Cholesterol 52 mg/dl LDL Cholesterol, Calculated 39 mg/dl VLDL Cholesterol, Calculated 16 mg/dl Cholesterol/HDL Ratio 2.1 (Elzbieta Orr, PA-C) Assessment and Plan 87 year old female with history of stroke admitted on 08/17/2017 with Left hip fracture, L Hip Fx S/P L Hemiarthroplasty on 08/19 - Orthopedics followed and S/O - WBAT and continue pain control -- Recommending F/U in 14 days from surgery Decreased Urine Output: - Continue to monitor output - hopefully can back down on fluids in next day or so - Renal and Bladder U/S without obstruction Acute Delirium: - Will R/O urine as an infectious source - likely hospital delirium - No evidence of acute CVA on imaging - Neurology following - recommending to optimize CVA risk reduction if reducing fall risk Acute Blood Loss Anemia: - Hemoglobin stable at 8.4 - continue to monitor - no need to transfuse at this time Aspiration Precautions: 1. Pureed diet 2. Aspiration precautions, straws OK. Position as upright as possible to 90 degrees for meals and for 30 minutes after meals are completed. 3. Only feed when awake, alert, and able to participate. Alternate solids and liquids. 4. Would benefit from coninued speech therapy at discharge for assessment of possible diet upgrade back to mechanical soft as appropriate and as tolerated. Paroxysmal Atrial Fibrillation: NSR/Bradycardia - Metoprolol 12.5 mg BID and Xarelto - Consideration for D/C anticoagulation due to fall risk DVT Prophylaxis: Xarelto Code Status: FULL RESUSCITATION Disposition: - SNF at rehab; Is from [facility] Continued [facility] stay due to: ambulation difficulties Discharge planning: group home facility (Elzbieta Orr, PA-C) i personally examined pt and verified all baca points w Cain Orr PAC responds, interacts some, d/w nursing and no new problems identified. current baseline mentation not clear, but definitely is better than she was last night vitals noted nad breathing unlabored chronic neuro deficits noted. no pallor or icterus AMS - appearing delirium/acute metabolic encephalopathy likely related to hosptial stay, hip fx and related blood loss/dehydration, baseline brain disease. check urine for completeness. avoid delirogenic meds, follow. hydration seems to have helped hip fx - PT/OT, for [facility] afib - agree xarelto, especially since she'll be in safe environment cerebrovascular disease - add asa since xarelto won't protect small vessels - follow Hgb, but with safe environment, appears benefits would outweigh the risks. if she's discharged from [facility] or has any bleeding issues, this might need to be revisited. (Alonso Hylton D.O.)
[2017-08-22 14:27] LABS: URINE APPEARANCE CLEAR (CLEAR); URINE BILIRUBIN NEG (NEG); URINE COLOR YELLOW; URINE EPITHELIAL CELL AUTO 0-5 /lpf (0-5); URINE NITRITE NEG (NEG); URINE SPECIFIC GRAVITY 1.017 (1.000-1.030); UROBILINOGEN NEG (NEG)
[2017-08-22 14:34] LABS: MANUAL MICROSCOPIC REQUIRED? NO; REVIEW REQ? NO
[2017-08-22] MEDS ORDERED: POLYETHYLENE (MIRALAX) 17 GM PACK PO PRN (16:45)
[2017-08-22] MEDS ORDERED: HydrALAZINE HCL 20 MG/ML VIAL IV. PRN (16:45)
[2017-08-22] MEDS ORDERED: SOD PHOSPHATE/SOD BIPHOSPHATE ENEMA 132 ML BTL PR PRN (16:45)
[2017-08-22] MEDS ORDERED: POLYETHYLENE (MIRALAX) 17 GM PACK PO SCH (17:00)
[2017-08-22] MEDS: ATORVASTATIN 20 MG TAB PO SCH (20:43)
[2017-08-23] VITALS (9 sets, daily range): BP systolic 170–221; BP diastolic 55–89; PULSE 61–73; TEMP 36.4–37.1; O2SAT 92–97
[2017-08-23 04:29] LABS: BASO % 0.3 %; BASO ABS # 0.02 K/uL (0-0.2); COMPLETE YES; EOS % 2.2 %; HEMATOCRIT 27.4 % (37-47); IG% 0.4 %; LYMPH % 14.7 %; LYMPH ABS # 1.01 K/uL (1.2-3.4); MEAN CELL VOLUME 91.9 fL (80-100); MEAN CORPUSCULAR HEMOGLOBIN 30.5 pg (25-34); MEAN CORPUSCULAR HGB CONC 33.2 g/dl (32-36); MONO % 12.1 %; NEUT % 70.3 %; PLATELET COUNT 194 K/uL (130-400); RED BLOOD COUNT 2.98 M/uL (4.2-5.4); WHITE BLOOD COUNT 6.85 K/uL (4.8-10.8)
[2017-08-23 04:47] LABS: BUN/CREATININE RATIO 22.3 (10-20); CALCIUM 8.2 mg/dl (8.5-10.1); CREATININE 0.76 mg/dl (0.60-1.20); POTASSIUM 4.6 mmol/L (3.5-5.1)
[2017-08-23] MEDS: NSS + 20MEQ KCL 1000ML 1,000 ML IV SCH (05:31)
[2017-08-23] MEDS: ACETAMINOPHEN 325 MG TAB PO SCH ×3 (05:32→22:01)
[2017-08-23] MEDS: PANTOprazole SOD 40 MG TAB PO SCH (07:42)
[2017-08-23] MEDS: LISINOPRIL 10 MG TAB PO SCH (07:42)
[2017-08-23] MEDS: METOPROLOL TARTRATE 25 MG TAB PO SCH ×2 (07:42→22:01)
[2017-08-23] MEDS: AMLODIPINE BESYLATE 5 MG TAB PO SCH (07:43)
[2017-08-23] MEDS: RIVAROXABAN TAB 15 MG TAB PO SCH (07:43)
[2017-08-23] MEDS: MULTIVITAMIN TAB PO SCH (07:43)
[2017-08-23] MEDS: DOCUSATE SODIUM 100 MG CAP PO SCH ×2 (07:44→22:00)
--- NOTE | 2017-08-23 08:37 | Neurology Progress Notes ---
Neurology Progress Note Date of Service Aug 23, 2017. Subjective No new events or decline overnight, per nursing. This morning she is sitting up in bed awake and alert and feeding herself breakfast. She has no complaint of pain or headache, vision problems, or dizziness. Objective Date Time Temp Pulse Resp B/P (MAP) Pulse Ox O2 Delivery O2 Flow Rate FiO2 08/23/17 07:04 37.1 73 19 189/82 (117) 92 Nasal Cannula 2.0 08/23/17 04:15 170/85 (113) 08/23/17 03:25 221/89 (133) 216/89 (131) 08/22/17 23:15 Nasal Cannula 2.0 08/22/17 22:58 91 Nasal Cannula 2.0 08/22/17 22:56 37.1 68 16 175/66 (102) 84 Room Air 08/22/17 18:43 36.9 58 18 181/76 (111) 94 Room Air 08/22/17 18:30 Room Air 08/22/17 16:00 92 Room Air 08/22/17 15:45 36.8 73 18 188/72 (110) 95 Room Air 180/70 (106) 08/22/17 12:00 93 Nasal Cannula 2.0 08/22/17 11:11 36.8 69 20 165/75 (105) 95 Nasal Cannula 2.0 Last 24 Hours Test 08/22/17 13:55 08/23/17 04:22 Urine Color YELLOW Urine Appearance CLEAR Urine pH 5.0 Urine Specific Dunn 1.017 Urine Protein NEG Urine Glucose (UA) NEG Urine Ketones NEG Urine Occult Blood TRACE Urine Nitrite NEG Urine Bilirubin NEG Urine Urobilinogen NEG Urine Leukocyte Esterase NEG Urine WBC (Auto) 1-5 /hpf Urine RBC (Auto) 0-4 /hpf Urine Hyaline Casts (Auto) 1-5 /lpf Urine Epithelial Cells (Auto) 0-5 /lpf Urine Bacteria (Auto) NEG White Blood Count 6.85 K/uL Red Blood Count 2.98 M/uL Hemoglobin 9.1 g/dL Hematocrit 27.4 % Mean Corpuscular Volume 91.9 fL Mean Corpuscular Hemoglobin 30.5 pg Mean Corpuscular Hemoglobin Concent 33.2 g/dl Platelet Count 194 K/uL Mean Platelet Volume 9.0 fL Neutrophils (%) (Auto) 70.3 % Lymphocytes (%) (Auto) 14.7 % Monocytes (%) (Auto) 12.1 % Eosinophils (%) (Auto) 2.2 % Basophils (%) (Auto) 0.3 % Neutrophils # (Auto) 4.81 K/uL Lymphocytes # (Auto) 1.01 K/uL Monocytes # (Auto) 0.83 K/uL Eosinophils # (Auto) 0.15 K/uL Basophils # (Auto) 0.02 K/uL RDW Standard Deviation 52.4 fL RDW Coefficient of Variation 15.5 % Immature Granulocyte % (Auto) 0.4 % Immature Granulocyte # (Auto) 0.03 K/uL Sodium Level 140 mmol/L Potassium Level 4.6 mmol/L Chloride Level 111 mmol/L Carbon Dioxide Level 23 mmol/L Anion Gap 6.0 mmol/L Blood Urea Nitrogen 17 mg/dl Creatinine 0.76 mg/dl Est Creatinine Clear Calc Drug Dose 34.2 ml/min Estimated GFR () 81.7 Estimated GFR (Non- 70.5 BUN/Creatinine Ratio 22.3 Random Glucose 87 mg/dl Calcium Level 8.2 mg/dl Exam: She is oriented to name, follows one-step commands very well, and is much more talkative than yesterday. She has spontaneous speech was is fluent, without aphasia or dysarthria. Extraocular eye muscles are intact. There is no facial droop. She is moving her arms symmetrically. There are no abnormal involuntary movements. Current Inpatient Medications Medications (Trade) Dose Ordered Sig/Paco Route Start Time Stop Time Status Last Admin Dose Admin Amlodipine Besylate (Norvasc Tab) 2.5 mg DAILY PO 08/18/17 09:00 09/17/17 08:59 08/23/17 07:43 2.5 MG Atorvastatin Calcium (Lipitor Tab) 20 mg HS PO 08/17/17 21:00 09/16/17 20:59 08/22/17 20:43 20 MG Albuterol/ Ipratropium (Combivent Respimat Inh) 1 puffs QID PRN INH 08/17/17 14:15 09/16/17 14:14 Lisinopril (Zestril Tab) 30 mg DAILY PO 08/18/17 09:00 09/17/17 08:59 08/23/17 07:42 30 MG Magnesium Hydroxide (Milk Of Magnesia Susp) 30 ml Q72H PRN PO 08/17/17 14:15 09/16/17 14:14 08/22/17 09:45 30 ML Metoprolol Tartrate (Lopressor Tab) 12.5 mg BID PO 08/17/17 21:00 09/16/17 20:59 08/23/17 07:42 12.5 MG Pantoprazole Sodium (Protonix Tab) 40 mg QAM PO 08/19/17 09:00 09/18/17 08:59 08/23/17 07:42 40 MG Hydromorphone HCl (Dilaudid Inj) 0.25 mg Q6H PRN IV 08/19/17 04:00 09/02/17 03:59 Acetaminophen (Tylenol Tab) 650 mg Q8 PO 08/20/17 02:00 09/19/17 01:59 08/23/17 05:32 650 MG Docusate Sodium (coLACE CAP) 100 mg BID PO 08/20/17 09:00 09/19/17 08:59 08/23/17 07:44 100 MG Multivitamins (Multivitamin Tab) 1 tab QAM PO 08/20/17 09:00 09/19/17 08:59 08/23/17 07:43 1 TAB Ondansetron HCl (Zofran Inj) 4 mg Q6H PRN IV 08/19/17 23:15 09/18/17 23:14 Rivaroxaban (Xarelto Tab) 15 mg Q24H PO 08/20/17 08:00 09/19/17 07:59 08/23/17 07:43 15 MG Tramadol HCl (Ultram Tab) 50 mg Q4H PRN PO 08/20/17 00:30 09/19/17 00:29 08/22/17 09:45 50 MG Potassium Chloride/Sodium Chloride 1,000 ml @ 150 mls/hr Q6H40M IV 08/21/17 07:30 09/20/17 07:29 08/23/17 05:31 150 MLS/HR Miscellaneous Information (Pharmacist Discharge Med Rec Consult) 1 ea UD PRN N/A 08/21/17 14:30 09/20/17 14:29 Gadobutrol (Gadavist) 4 mmol UD PRN IV 08/21/17 21:00 08/25/17 20:59 Hydralazine HCl (HydrALAZINE INJ) 5 mg Q6H PRN IV. 08/22/17 16:45 09/21/17 16:44 08/23/17 03:27 5 MG Polyethylene (Miralax Powder Packet) 17 gm DAILY PRN PO 08/22/17 16:45 09/21/17 16:44 Sodium Biphosphate/ Sodium Phosphate (Fleet Enema) 132 ml DAILY PRN [place] 08/22/17 16:45 09/21/17 16:44 Aspirin (Ecotrin Tab) 81 mg QAM PO 08/23/17 09:00 09/22/17 08:59 Impression 1. Acute encephalopathy August 21. She is much improved and much more responsive than even yesterday. She may be back to her baseline. I believe this event had a multifactorial origin. She had major surgery with a secondary anemia, fluid status problems, narcotic pain medication, and hypotension. 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 I do not see any focal neurologic signs She did not have an acute stroke by MRI. There is no evidence to suggest seizure activity (although it was theoretically possible) 2. 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 This is stable 3. Extensive atrophy and old small vessel ischemic changes with probable vascular dementia. This is stable. 4. The other risk factors for small vessel ischemic disease including hypertension and dyslipidemia, stable 5. History of paroxysmal atrial fibrillation on Xarelto June 2017, currently in normal sinus rhythm. 6. Fall August 17 with left hip fracture requiring left total hip replacement 7. History of right breast adenocarcinoma, post lumpectomy, with no information regarding status of adenocarcinoma, but presumed in remission/stable 8. 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 I see no need for additional neurologic testing 2. Continue 81 mg aspirin daily to prevent small vessel ischemic disease progression. 3. Continue anticoagulant in lieu of her paroxysmal atrial fibrillation. 4. Her reduce fall risk as much as possible. I have no further neurologic testing or treatment recommendations to make at this time. Please contact me if I can be of further assistance on this case.
[2017-08-23] MEDS: ASPIRIN 81 MG ECTAB PO SCH (09:42)
[2017-08-23] MEDS ORDERED: ULT50X PO (11:12)
[2017-08-23] MEDS ORDERED: ASPEC81 PO (11:12)
--- NOTE | 2017-08-23 11:29 | Discharge Instructions ---
Discharge Instructions Date of Service Aug 23, 2017. Admission Reason for Admission: Hip Fracture, Left Discharge Discharge Diagnosis / Problem: Left Hip Fracture Discharge Goals Goal(s): Decrease discomfort, Improve function, Increase independence Activity Recommendations Activity Level: Assistance Required Therapies: Physical Therapy, Occupational Therapy . Additional Information Patient informed of condition: Yes Advance Directives: Yes DNR: No Level of Care: Skilled Communicable Disease: No Prognosis: Stable Instructions / Follow-Up Instructions / Follow-Up 87 year old female with history of stroke admitted on 08/17/2017 with Left hip fracture, L Hip Fx S/P L Hemiarthroplasty on 08/19 - Orthopedics followed - WBAT and continue pain control -- Recommending F/U in 14 days from surgery Decreased Urine Output: RESOLVED - Likely in the setting of dehydration as last two days with fluids have improved this - Renal and Bladder U/S without obstruction Acute Delirium/Encephalopathy: - Likely multifactorial given previous stroke, suspected underlying dementia, [place], visual deficits, pain medications, and hospital delirium - No evidence of acute CVA on imaging - evidence of old CVA - Neurology following - recommending to optimize CVA risk reduction if reducing fall risk -- Currently on Xarelto for A Fib stroke risk and ASA for prevention - will need to continually evaluate pros vs cons given age and fall risk Acute Blood Loss Anemia: - Hemoglobin stable at 9.1 - continue to monitor - no need to transfuse at this time - Recommend repeat CBC in next 2-3 days Aspiration Precautions: 1. Pureed diet 2. Aspiration precautions, straws OK. Position as upright as possible to 90 degrees for meals and for 30 minutes after meals are completed. 3. Only feed when awake, alert, and able to participate. Alternate solids and liquids. 4. Would benefit from coninued speech therapy at discharge for assessment of possible diet upgrade back to mechanical soft as appropriate and as tolerated. Paroxysmal Atrial Fibrillation: NSR/Bradycardia - Metoprolol 12.5 mg BID and Xarelto - Consideration for D/C anticoagulation due to fall risk as outpatient DVT Prophylaxis: Xarelto Code Status: FULL RESUSCITATION Disposition: - SNF at rehab; Is from [facility] but will get SNF from [facility] - Was previously on Digoxin and has been held during admission - outpatient records reflect consideration for D/C all together would recommend cardiology/ PCP follow-up - Are using Tylenol and Tramadol for pain - be mindful of effects of medication Current Hospital Diet Patient's current hospital diet: AHA Diet (Heart Healthy) Discharge Diet Recommended Diet: AHA Diet (Heart Healthy) Procedures Procedures Performed: left hip hemiarthroplasty Pending Studies Studies pending at discharge: no Physician Orders On Transfer POLST Discussion: without POLST completion Laboratory Results Hemoglobin A1c Test 08/21/17 06:20 Range/Units Estimated Average Glucose 117 mg/dl Hemoglobin A1c 5.7 H 4.5-5.6 % Lipid Panel Test 08/22/17 04:38 Range/Units Triglycerides Level 81 0-150 mg/dl Cholesterol Level 107 0-200 mg/dl HDL Cholesterol 52 mg/dl Cholesterol/HDL Ratio 2.1 LDL Cholesterol, Calculated 39 mg/dl Medical Emergencies . Who to Call and When: Medical Emergencies: If at any time you feel your situation is an emergency, please call 911 immediately. . Non-Emergent Contact Non-Emergency issues call your: Primary Care Provider Call Non-Emergent contact if: you have a fever, your pain is concerning you, you have any medication questions . . "Provider Documentation" section prepared by Elzbieta Orr. . Speech And Drama Teacher Recommendations Speech And Drama Teacher Recommendations: ACTIVITY RECOMMENDATIONS: SELF CARE INSTRUCTIONS AFTER HIP HEMIARTHROPLASTY Until the incision and soft tissues around your hip have healed, there is a possibility that the hip prosthesis could dislocate. A. Observe the following precautions to prevent dislocation: 1. Don't bend your hip greater than 90 degrees. 2. Avoid crossing your legs or ankles while standing or lying. 3. Sit with your feet placed 6 inches apart. 4. When sitting, keep your knees below your hips. Sit on a firm surface, avoid deep, soft chairs and couches. Use an elevated toilet seat in the bathroom. 5. Don't bend over at the waist. Use a long handled shoehorn and a sock aid to help you put on your shoes and socks. A hr generalist can help you grain picker objects that are too high or too low to reach. 6. Keep car riding to a minimum for at least one month after surgery. B. Your balance may be shaky for a while. Use crutches or a walker until directed by your doctor. C. Use hand rails when walking on stairs. D. Wear low heeled shoes with non-slip soles. E. Be sure that your floors are free of things that could trip you - throw rugs , electrical cords, small objects. Avoid wet and waxed floors, especially with crutches and canes. F. Try to walk several times a day with rest periods between. G. Continue with all the exercises taught to you in the hospital. Again, make walking a part of your daily routine. H. It is okay to shower if minimal to no drainage from incision. No baths. Do not soak wound. I. Physical Therapy as instructed by your Physician. Matias Colón- This is a large adhesive bandage that contains silver ions. This helps your incision heal by fighting off bacteria and protecting it from the outside environment. You are permitted to shower with this dressing. This will remain on your incision for 7 days and then should be removed. Some visible blood or drainage through the dressing window is normal. If there is significant drainage or leaking noted before the 7 days notify your doctor's office immediately. Once removed, keep incision clean and dry. If there is any drainage or redness noted, please call your surgeon. A NEW DRESSING WAS APPLIED ON 08.21.17 AND CAN BE REMOVED ON 08.28.17. SPECIAL CARE INSTRUCTIONS: VERY IMPORTANT TO READ AND REVIEW A. You may still be at risk for phlebitis and blood clots. 1. Wear surgical stockings (HALEY hose) for one month, 20 hours daily, after surgery to improve circulation and reduce swelling. 2. Take Coumadin, Xarelto, Lovenox or Aspirin (blood thinning medications), as directed by your doctor. 3. Have a pro-time (blood test) drawn according to your doctor's instructions. B. We encourage and will assist you in choosing a home-health agency of your choice. Home health nurses and therapists will monitor your temperature, wound healing and progress in exercise and walking. Home health nurses may also draw the blood for the pro-time test. They may instruct you in decreasing or increasing the amount of Coumadin you take. C. You must take antibiotics before having dental work, bladder, bowel and other surgery. Your doctor will provide you with a permanent card to carry describing precautions. D. Call [facility] if you have a temperature of 101 or greater, redness or swelling around the incision, cloudy drainage from incision, or sudden increase in pain in your hip, not relieved by your regular pain medication. E. Please call the office at if you have any concerns or questions about your operation or recovery. FOLLOW UP VISIT: If appointment is not already scheduled: Please call [facility] to make a follow-up appointment for one month after your surgery at . Core Measure Problem Core Measures: None
--- NOTE | 2017-08-23 16:55 | Hospitalist Progress Note ---
Hospitalist Progress Note Date of Service Aug 23, 2017. (Elzbieta Orr, KEAGANC) Subjective Pt evaluation today including: conversation w/ patient, conversation w/ family , physical exam, chart review, lab review, review of studies, review of inpatient medication list Patient seen and evaluated. No acute events overnight. Continues to be delirious but follows commands. Spoke to daughter over the phone who reports she does have episodes of confusion but this is lingering longer than normal. Did update her on tests and that this is likely delirium due to underlying dementia vs medication. Patient is alert and oriented to self but was getting agitated as she wanted me to call her father to take her home. She is not aware of her current situation at this time. Daughter states the patient's roommate from [facility] said that she sustained a fall because she got up out of bed and began to pull her pants down to go to the bathroom and then fell. Given that information, would suspect underlying dementia that unfortunately putting her at risk for delirium. Will continue Tylenol and reduce Tramadol as this may be the cause. Can re- adjust if pain seems to continue. BPs remain high and will continue to use PRN Hydralazine. Is on Clonidine PRN as outpatient for hypertension. Did discuss with daughter that likely can D/C to [facility] tomorrow pending insurance authorization. Additional Comments: ROS deferred due to difficulty redirected due to delirium. States she has no pain but again didn't know she sustained a hip fracture. (Elzbieta Orr, SHAMIR-C) Medications Current Inpatient Medications Medications (Trade) Dose Ordered Sig/Paco Route Start Time Stop Time Status Last Admin Dose Admin Amlodipine Besylate (Norvasc Tab) 2.5 mg DAILY PO 08/18/17 09:00 09/17/17 08:59 08/23/17 07:43 2.5 MG Atorvastatin Calcium (Lipitor Tab) 20 mg HS PO 08/17/17 21:00 09/16/17 20:59 08/22/17 20:43 20 MG Albuterol/ Ipratropium (Combivent Respimat Inh) 1 puffs QID PRN INH 08/17/17 14:15 09/16/17 14:14 Lisinopril (Zestril Tab) 30 mg DAILY PO 08/18/17 09:00 09/17/17 08:59 08/23/17 07:42 30 MG Magnesium Hydroxide (Milk Of Magnesia Susp) 30 ml Q72H PRN PO 08/17/17 14:15 09/16/17 14:14 08/22/17 09:45 30 ML Metoprolol Tartrate (Lopressor Tab) 12.5 mg BID PO 08/17/17 21:00 09/16/17 20:59 08/23/17 07:42 12.5 MG Pantoprazole Sodium (Protonix Tab) 40 mg QAM PO 08/19/17 09:00 09/18/17 08:59 08/23/17 07:42 40 MG Hydromorphone HCl (Dilaudid Inj) 0.25 mg Q6H PRN IV 08/19/17 04:00 09/02/17 03:59 Acetaminophen (Tylenol Tab) 650 mg Q8 PO 08/20/17 02:00 09/19/17 01:59 08/23/17 14:10 650 MG Docusate Sodium (coLACE CAP) 100 mg BID PO 08/20/17 09:00 09/19/17 08:59 08/23/17 07:44 100 MG Multivitamins (Multivitamin Tab) 1 tab QAM PO 08/20/17 09:00 09/19/17 08:59 08/23/17 07:43 1 TAB Ondansetron HCl (Zofran Inj) 4 mg Q6H PRN IV 08/19/17 23:15 09/18/17 23:14 Rivaroxaban (Xarelto Tab) 15 mg Q24H PO 08/20/17 08:00 09/19/17 07:59 08/23/17 07:43 15 MG Gadobutrol (Gadavist) 4 mmol UD PRN IV 08/21/17 21:00 08/25/17 20:59 Hydralazine HCl (HydrALAZINE INJ) 5 mg Q6H PRN IV. 08/22/17 16:45 09/21/17 16:44 08/23/17 03:27 5 MG Polyethylene (Miralax Powder Packet) 17 gm DAILY PRN PO 08/22/17 16:45 09/21/17 16:44 Sodium Biphosphate/ Sodium Phosphate (Fleet Enema) 132 ml DAILY PRN [place] 08/22/17 16:45 12/13/17 16:44 Aspirin (Ecotrin Tab) 81 mg QAM PO 08/23/17 09:00 09/22/17 08:59 08/23/17 09:42 81 MG Tramadol HCl (Ultram Tab) 25 mg Q4H PRN PO 08/23/17 17:00 09/19/17 00:29 UNV (Elzbieta Orr PA-C) Objective Vital Signs Date Time Temp Pulse Resp B/P (MAP) Pulse Ox O2 Delivery O2 Flow Rate FiO2 08/23/17 16:21 61 176/55 (95) 08/23/17 15:45 36.5 64 18 183/71 (108) 96 Room Air 08/23/17 07:30 96 Nasal Cannula 2.0 08/23/17 07:04 37.1 73 19 189/82 (117) 92 Nasal Cannula 2.0 08/23/17 04:15 170/85 (113) 08/23/17 03:25 221/89 (133) 216/89 (131) 08/22/17 23:15 Nasal Cannula 2.0 08/22/17 22:58 91 Nasal Cannula 2.0 08/22/17 22:56 37.1 68 16 175/66 (102) 84 Room Air 08/22/17 18:43 36.9 58 18 181/76 (111) 94 Room Air 08/22/17 18:30 Room Air (Elzbieta Orr, SHAMIR-C) Physical Exam General Appearance: no apparent distress Neck: supple, no JVD, trachea midline Respiratory/Chest: lungs clear, normal breath sounds, no respiratory distress, no accessory muscle use Cardiovascular: regular rate, rhythm, no gallop, no murmur Abdomen: normal bowel sounds, non tender, soft Extremities: no calf tenderness Neurologic/Psychiatric: alert, + disoriented Skin: normal color, warm/dry (Elzbieta Orr PA-C) Laboratory Results Last 24 Hours Test 08/23/17 04:22 White Blood Count 6.85 K/uL Red Blood Count 2.98 M/uL Hemoglobin 9.1 g/dL Hematocrit 27.4 % Mean Corpuscular Volume 91.9 fL Mean Corpuscular Hemoglobin 30.5 pg Mean Corpuscular Hemoglobin Concent 33.2 g/dl Platelet Count 194 K/uL Mean Platelet Volume 9.0 fL Neutrophils (%) (Auto) 70.3 % Lymphocytes (%) (Auto) 14.7 % Monocytes (%) (Auto) 12.1 % Eosinophils (%) (Auto) 2.2 % Basophils (%) (Auto) 0.3 % Neutrophils # (Auto) 4.81 K/uL Lymphocytes # (Auto) 1.01 K/uL Monocytes # (Auto) 0.83 K/uL Eosinophils # (Auto) 0.15 K/uL Basophils # (Auto) 0.02 K/uL RDW Standard Deviation 52.4 fL RDW Coefficient of Variation 15.5 % Immature Granulocyte % (Auto) 0.4 % Immature Granulocyte # (Auto) 0.03 K/uL Sodium Level 140 mmol/L Potassium Level 4.6 mmol/L Chloride Level 111 mmol/L Carbon Dioxide Level 23 mmol/L Anion Gap 6.0 mmol/L Blood Urea Nitrogen 17 mg/dl Creatinine 0.76 mg/dl Est Creatinine Clear Calc Drug Dose 34.2 ml/min Estimated GFR () 81.7 Estimated GFR (Non- 70.5 BUN/Creatinine Ratio 22.3 Random Glucose 87 mg/dl Calcium Level 8.2 mg/dl (Elzbieta Orr, PAMyrnaC) Assessment and Plan 87 year old female with history of stroke admitted on 08/17/2017 with Left hip fracture, L Hip Fx S/P L Hemiarthroplasty on 08/19 - Orthopedics followed and S/O - WBAT and continue pain control -- Recommending F/U in 14 days from surgery Decreased Urine Output: RESOLVED - Renal and Bladder U/S without obstruction - have D/Cd fluid and will monitor Acute Delirium: - No metabolic cause identified, no acute CVA, suspected worsening delirium due to underlying dementia and possible pain medication -- Patient is also [facility] and has some visual deficits which can play a role; in addition she has moved rooms multiple times this stay increasing risk of delirium - Neurology following - recommending to optimize CVA risk reduction if reducing fall risk Acute Blood Loss Anemia: - Hemoglobin stable at 9 - continue to monitor - no need to transfuse at this time Aspiration Precautions: 1. Pureed diet 2. Aspiration precautions, straws OK. Position as upright as possible to 90 degrees for meals and for 30 minutes after meals are completed. 3. Only feed when awake, alert, and able to participate. Alternate solids and liquids. 4. Would benefit from coninued speech therapy at discharge for assessment of possible diet upgrade back to mechanical soft as appropriate and as tolerated. Paroxysmal Atrial Fibrillation: NSR/Bradycardia - Metoprolol 12.5 mg BID and Xarelto - Consideration for D/C anticoagulation due to fall risk DVT Prophylaxis: Xarelto Code Status: FULL RESUSCITATION Disposition: - SNF at rehab; Is from [facility] - Pending authorization patient can be transferred to SNF Continued [facility] stay due to: ambulation difficulties Discharge planning: shelter facility (Elzbieta Orr, PA-C) i personally examined pt and verified all baca points w A Kirby PAC pleasantly confused, main complaint is wanting to go upstairs or get out of the hospital vitals noted nad lungs cta b/l no r/r/w good effort hip fx - repaired metabolic encephalopathy - multifactorial but stable stable for transfer to SNF once approved and available (Alonso Hylton D.O.)
[2017-08-23] MEDS ORDERED: TRAMADOL HCL 50 MG TAB PO PRN (17:00)
[2017-08-23] MEDS: ATORVASTATIN 20 MG TAB PO SCH (22:00)
[2017-08-24 05:09] LABS: BASO % 0.3 %; BASO ABS # 0.02 K/uL (0-0.2); COMPLETE YES; EOS % 2.9 %; HEMATOCRIT 26.5 % (37-47); IG% 0.7 %; LYMPH % 17.3 %; LYMPH ABS # 1.02 K/uL (1.2-3.4); MEAN CELL VOLUME 89.8 fL (80-100); MEAN CORPUSCULAR HEMOGLOBIN 30.5 pg (25-34); MEAN PLATELET VOLUME 9.4 fL (7.4-10.4); MONO % 12.4 %; NEUT % 66.4 %; PLATELET COUNT 214 K/uL (130-400); RED BLOOD COUNT 2.95 M/uL (4.2-5.4); WHITE BLOOD COUNT 5.91 K/uL (4.8-10.8)
[2017-08-24 05:37] LABS: BUN/CREATININE RATIO 19.8 (10-20); CALCIUM 8.3 mg/dl (8.5-10.1); CREATININE 0.71 mg/dl (0.60-1.20)
[2017-08-24] MEDS: ACETAMINOPHEN 325 MG TAB PO SCH ×2 (05:41→13:44)
[2017-08-24 07:13] VITALS: BP_SYST 119; BP_SYST 186; BP_DIAS 70; BP_DIAS 76; PULSE 59; PULSE 78; TEMP 36.4; TEMP 37; O2SAT 97; O2SAT 98
[2017-08-24] MEDS: MULTIVITAMIN TAB PO SCH (08:30)
[2017-08-24] MEDS: PANTOprazole SOD 40 MG TAB PO SCH (08:30)
[2017-08-24] MEDS: DOCUSATE SODIUM 100 MG CAP PO SCH (08:30)
[2017-08-24] MEDS: METOPROLOL TARTRATE 25 MG TAB PO SCH (08:30)
[2017-08-24] MEDS: ASPIRIN 81 MG ECTAB PO SCH (08:30)
[2017-08-24] MEDS: AMLODIPINE BESYLATE 5 MG TAB PO SCH (08:31)
[2017-08-24] MEDS: LISINOPRIL 10 MG TAB PO SCH (08:31)
[2017-08-24] MEDS: RIVAROXABAN TAB 15 MG TAB PO SCH (08:31)
[2017-08-24] MEDS ORDERED: ULT50X PO (10:15)
[2017-08-24 14:25] VITALS: BP 135/72; PULSE 64; O2SAT 93
[2017-08-24 15:24] VITALS: BP 154/68; PULSE 63; TEMP 36.5; O2SAT 94
--- NOTE | 2017-08-24 15:26 | Discharge Summary ---
Discharge Summary Date of Service Aug 24, 2017. (Elzbieta Orr PA-C) Discharge Summary Admission Date: Aug 17, 2017 at 13:11 Discharge Date: Aug 23, 2017 Discharge Disposition: longterm facility Principal Diagnosis: L Hip Fracture Problems/Secondary Diagnoses: 1. Paroxysmal Atrial Fibrillation 2. CVA 3. Dementia 4. HTN Immunizations: Have You Had Influenza Vaccine: Yes Influenza Vaccine Date: Aug 02, 2008 History of Tetanus Vaccine?: Unknown History of Pneumococcal: No History of Hepatitis B Vaccine: No Procedures: L PELVIS/UNILATERAL HIP 2-3VIEWS DISCUSSION: Subcapital fracture left hip. Mild superior migration left femoral shaft. No evidence for acetabular protrusion. Degenerative change of all remaining osseous structures. Moderate soft tissue edema IMPRESSION: Subcapital fracture left hip with moderate superior migration left femoral shaft. (RENAL)RETROPERITON COMP FINDINGS: Study is very limited secondary to obscuring bowel gas and patient positioning. Right kidney is not identified. Only a portion of the superior pole left kidney is seen which is unremarkable. The majority of the left kidney is not visualized. Urinary bladder is collapsed with Iniguez catheter. Mild free fluid is noted adjacent to the liver, nonspecific. IMPRESSION: 1. Very limited study secondary to positioning of the patient and obscuring bowel gas. 2. Right kidney and the majority of the left kidney are not diagnostically visualized. Urinary bladder collapsed with Iniguez catheter. 3. Trace nonspecific perihepatic fluid. L EXTREMITY NONVASCULAR LIMITED FINDINGS/IMPRESSION: Moderate subcutaneous and deep tissue edema about the left hip. There is a focal crescentic avascular circumscribed hypoechoic collection lateral to the left hip, 5.1 x 1.9 x 2.9 cm with mildly increased through transmission suggesting postoperative seroma. Liquefied hematoma or abscess are thought to be less likely. BRAIN COMBO FINDINGS: No restricted diffusion to suggest acute ischemia. The midline structures including the corpus callosum, brainstem, optic chiasm, pituitary and pineal glands are unremarkable the sagittal T1 sequence. No cerebellar tonsillar herniation. Advanced degenerative changes are seen within the imaged upper cervical spine. There is no acute intracranial hemorrhage, midline shift, abnormal extra-axial collections, hydrocephalus or intracranial mass. Encephalomalacia, gliosis and laminar necrosis involves the remote infarction of the right MCA distribution which appears unchanged from comparison. There is background moderate cerebral atrophy with extensive chronic microvascular ischemic changes and ex vacuo ventriculomegaly. Remote lacunar infarctions of the basal ganglia. No abnormal intra-axial or extra-axial enhancement. The major flow voids at the level of the skull base appear patent. Orbits are symmetric. Mastoid air cells and middle ear cavities appear clear. Mild mucosal thickening of the ethmoid air cells. IMPRESSION: 1. No acute intracranial abnormality. No acute ischemia or abnormal enhancement. 2. Atrophy with extensive chronic microvascular ischemic changes. 2. Encephalomalacia, gliosis and laminar necrosis associated with remote right MCA distribution infarction. Consultations: 1. Orthopedic Surgery 2. Neurology 3. PT/OT (Elzbieta Orr, ROXANA) Medication Reconciliation New Medications: Aspirin (Aspirin EC Low Dose) 81 Mg Ectab 81 MG PO QAM for 30 Days Tramadol HCl (Tramadol HCl) 50 Mg Tab 25 MG PO Q6H PRN for Pain for 3 Days, #6 TAB Continued Medications: Acetaminophen (Tylenol) 325 Mg Tab 650 MG PO Q6 PRN for Fever, TAB Acetaminophen Tab (Tylenol) 325 Mg Tab 325 MG PO Q6 PRN for Pain, TAB Amlodipine (Norvasc) 2.5 Mg Tab 2.5 MG PO DAILY, TAB Atorvastatin (Atorvastatin Calcium) 20 Mg Tab 20 MG PO HS, #30 TAB 5 Refills Bisacodyl (Dulcolax) 5 Mg Tab 1 SUPP PO UD PRN for Constipation for 1 Day, #2 TAB Clonidine Hcl (Catapres) 0.1 Mg Tab 0.1 MG PO DAILY PRN for Blood Pressure, TAB Glucagon (Glucagon Emergency Kit) 1 Mg Kit 1 APPL IM UD PRN for HYPOGLYCEMIA PROTOCOL Ipratropium-Albuterol (Combivent Respimat) 1 Aer Aer 1 PUFFS INH QID PRN for cough/wheeze, #1 INH 0 Refills Lisinopril (Zestril) 30 Mg Tab 30 MG PO DAILY, TAB Magnesium Hydroxide (Milk Of Magnesia) 30 Ml Susp 30 ML PO Q72H PRN for Constipation, ML Metoprolol Tartrate (Lopressor) (Lopressor) 25 Mg Tab 12.5 MG PO BID, TAB Multivitamin (Multivitamin) Tab 1 TAB PO DAILY, TAB Rivaroxaban (Xarelto) 15 Mg Tab 15 MG PO QDD, #30 TAB 5 Refills Sodium Phosphates (Fleet Enema Six Pack) 1 Brittany Brittany 1 APPLN RE UD PRN for Constipation Discontinued Medications: Digoxin (Digoxin) 0.125 Mg Tab 0.125 MG PO MoWeFr@1600 for 30 Days, TAB Doxycycline Hyclate (Doxycycline Hyclate) 100 Mg Cap 100 MG PO BID for 23 Days, #46 CAP from 07/20/2017 for total 28 days Oxycodone/Acetaminophen 5MG/325MG (Percocet 5MG/325MG) Tab 1 TABLET PO Q4H PRN for Pain, TAB PAIN Discharge Exam Review of Systems: Constitutional: No fever, No chills Respiratory: No shortness of breath Cardiovascular: No chest pain Abdomen: No pain Musculoskeletal: No joint pain Genitourinary - Female: No dysuria Physical Exam: General Appearance: no apparent distress Eyes: sclerae normal Neck: supple, no JVD, trachea midline Respiratory/Chest: lungs clear, no respiratory distress, no accessory muscle use, + decreased breath sounds (diminished at bases) Cardiovascular: regular rate, rhythm Abdomen / GI: normal bowel sounds, non tender, soft Extremities: + pertinent finding (Dressing to L Hip C/D/I; minimal ecchymosis) Neurologic/Psychiatric: alert, + disoriented Skin: normal color, warm/dry (Elzbieta Orr, PAMyrnaC) Hospital Course ADMISSION: 87 yo female who presents to the hospital with hip pain. Patient has multiple episodes of falls in the past. There was concern about her bradycardia being a cause of the falls. She presents today with another fall, which as per ER, it was a mechanical fall. However, patient is a poor historian, and she is unable to describe event. She does however state that she did not pass out when she fell. She was just standing and lost strength in her affected left leg and fell. Patient reports that she was unable to get up and called for help. Patient was brought to this hospital and was diagnosed with a left hip fracture. HOSPITAL COURSE: Ms. Rogers was admitted for L Hip Fx and is S/P L Hemiarthroplasty on 08/19. It appears patient was confused when she woke up at [facility] and was pulling her pants down thinking she was in the bathroom and unfortunately sustained a fall. She can be WBAT and recommended F/U with orthopedics in 14 days from surgery. Patient has underlying dementia with previous CVA. She has had delirium the majority of her stay in the hospital. At one point, she was staring off and concern for acute CVA considered but ruled out. Patient is intermittently coherent but largely disoriented. She denies pain and would recommend Tylenol for pain control but Tramadol Rx given for severe pain. No metabolic source of disorientation and likely multifactorial - underlying dementia, acute blood loss anemia, pain medications, new environment...Patient did have a decrease in Hgb after surgery but has been improving and stable in 9s. No need for transfusion during admission. Neurology followed and recommended optimization of CVA prevention with ASA 81 mg daily. Will need to continue to evaluate need for ASA and Xarelto given fall risk. If continues to fall she may need these medications D/C'd. Outpatient reports suggests consideration for stopping Digoxin. She has not utilized this in hospital and did D/C this on discharge. This can continue to be evaluated for need however is stable off this medication at this time. Aspiration Precautions: 1. Pureed diet 2. Aspiration precautions, straws OK. Position as upright as possible to 90 degrees for meals and for 30 minutes after meals are completed. 3. Only feed when awake, alert, and able to participate. Alternate solids and liquids. 4. Would benefit from continued speech therapy at discharge for assessment of possible diet upgrade back to mechanical soft as appropriate and as tolerated. Total Time Spent: Greater than 30 minutes This includes examination of the patient, discharge planning, medication reconciliation, and communication with other providers. (Elzbieta Orr, PA-C) pt seen, case d/w A Kirby PAC sleeping comfortably, no new issues identified by nursing vitals noted sleeping comfortably breathing unlabored hip fx - stable for rehab acute multifactorial metabolic encephalopathy superimposed on dementia - stable. no new / treatable inciting factors noted stable / safe for SNF (Alonso Hylton D.Nisa.) Discharge Instructions Please refer to the electronic Patient Visit Report (Discharge Instructions) for additional information. (Elzbieta Orr, PA-C) Additional Copies To Bety Ruth; Anusha Cheek
[2017-08-24 18:25] VITALS: BP 154/68; PULSE 63; TEMP 36.5; O2SAT 94
== END 2017-08-24 16:20 | DRG 469 ==
LOC: EDBD 09:07 → C.EDA 09:08 → C.2T 13:11 → ENRESERV 14:31 → C.MSN 08-18 10:52 → ENRESERV 08-18 11:46 → C.MSN 08-20 19:33 → ENRESERV 08-21 15:20 → C.2T 08-21 16:06 → C.MSN 08-22 17:04 → ENRESERV 08-22 17:12
PROVIDERS: ADMIT Internal Medicine Sports Medicine; ATTEND Family Medicine
PROC: 0T9B70Z Drainage of Bladder with Drainage Device, Via Natural or Artificial Opening (ICD-10-PCS; 2017-08-17)
PROC: 0SRS0J9 Replacement of Left Hip Joint, Femoral Surface with Synthetic Substitute, Cemented, Open Approach (ICD-10-PCS; principal; 2017-08-19 08:30)
DX: S72.012A Unspecified intracapsular fracture of left femur, initial encounter for closed fracture (principal); G93.41 Metabolic encephalopathy; D62 Acute posthemorrhagic anemia; W19.XXXA Unspecified fall, initial encounter; Y92.129 Unspecified place in nursing home as the place of occurrence of the external cause; Y99.8 Other external cause status; F01.50 Vascular dementia, unspecified severity, without behavioral disturbance, psychotic disturbance, mood disturbance, and anxiety; G31.9 Degenerative disease of nervous system, unspecified; I48.0 Paroxysmal atrial fibrillation; I10 Essential (primary) hypertension; E78.5 Hyperlipidemia, unspecified; F17.200 Nicotine dependence, unspecified, uncomplicated; Z91.81 History of falling; I69.920 Aphasia following unspecified cerebrovascular disease; I69.998 Other sequelae following unspecified cerebrovascular disease; Z86.79 Personal history of other diseases of the circulatory system; Z85.3 Personal history of malignant neoplasm of breast; Z90.5 Acquired absence of kidney; Z79.01 Long term (current) use of anticoagulants; Z79.2 Long term (current) use of antibiotics; Z79.899 Other long term (current) drug therapy

== ENCOUNTER → 2017-08-29 | Outpatient (CLI) | payer OTHER ==
[~2017-08-29] MED LIST changes: +ACET-1311 PO; +ACET325T96 PO; +AMLO2.5T PO; +ASPEC81 PO; +BISA-16 PO; +CTP/1 PO; -DXY100 PO; +GLGKIT IM; -LNX125 PO; -LPR25 PO; -LSN25 PO; +LSNP/30 PO; +METO25TA56 PO; +MOML PO; -NICO21DI4 TD; +SODI1ENE RE; +ULT50X PO
[2017-08-29 09:57] LABS: HEMATOCRIT 30.1 % (37-47); MEAN CELL VOLUME 92.6 fL (80-100); MEAN CORPUSCULAR HEMOGLOBIN 29.8 pg (25-34); MEAN CORPUSCULAR HGB CONC 32.2 g/dl (32-36); PLATELET COUNT 379 K/uL (130-400); RED BLOOD COUNT 3.25 M/uL (4.2-5.4); WHITE BLOOD COUNT 8.07 K/uL (4.8-10.8)
[2017-08-29 10:14] LABS: BLOOD UREA NITROGEN 25 mg/dl (7-18); BUN/CREATININE RATIO 24.7 (10-20); CALCIUM 8.3 mg/dl (8.5-10.1); CARBON DIOXIDE 28 mmol/L (21-32); CHLORIDE 101 mmol/L (98-107); CREATININE 1.01 mg/dl (0.60-1.20); GLUCOSE 92 mg/dl (70-99); POTASSIUM 3.4 mmol/L (3.5-5.1); SODIUM 135 mmol/L (136-145)
== END ==
LOC: C.LABCC 09:32
PROVIDERS: ATTEND Internal Medicine
DX: D50.0 Iron deficiency anemia secondary to blood loss (chronic) (principal); R41.0 Disorientation, unspecified

== ENCOUNTER → 2017-09-06 | Outpatient (CLI) | payer OTHER ==
[2017-09-06 09:03] LABS: BASO % 1.1 %; BASO ABS # 0.07 K/uL (0-0.2); COMPLETE YES; EOS % 2.9 %; HEMATOCRIT 28.9 % (37-47); IG% 0.5 %; LYMPH % 16.4 %; LYMPH ABS # 1.01 K/uL (1.2-3.4); MEAN CELL VOLUME 95.4 fL (80-100); MEAN CORPUSCULAR HGB CONC 31.5 g/dl (32-36); MEAN PLATELET VOLUME 8.6 fL (7.4-10.4); MONO % 16.7 %; NEUT % 62.4 %; PLATELET COUNT 447 K/uL (130-400); RED BLOOD COUNT 3.03 M/uL (4.2-5.4); WHITE BLOOD COUNT 6.17 K/uL (4.8-10.8)
== END ==
LOC: C.LABCC 08:15
PROVIDERS: ATTEND Internal Medicine
DX: D64.9 Anemia, unspecified (principal)

== ENCOUNTER → 2017-09-28 | Outpatient (CLI) | payer OTHER ==
[2017-09-28 09:13] LABS: BASO % 0.8 %; BASO ABS # 0.04 K/uL (0-0.2); COMPLETE YES; EOS % 4.5 %; HEMATOCRIT 34.2 % (37-47); IG% 0.2 %; LYMPH % 25.4 %; LYMPH ABS # 1.23 K/uL (1.2-3.4); MEAN CELL VOLUME 92.4 fL (80-100); MEAN CORPUSCULAR HGB CONC 32.5 g/dl (32-36); MEAN PLATELET VOLUME 9.1 fL (7.4-10.4); MONO % 14.4 %; NEUT % 54.7 %; PLATELET COUNT 311 K/uL (130-400); WHITE BLOOD COUNT 4.85 K/uL (4.8-10.8)
[2017-09-28 09:20] LABS: BLOOD UREA NITROGEN 30 mg/dl (7-18); BUN/CREATININE RATIO 27.3 (10-20); CALCIUM 8.9 mg/dl (8.5-10.1); CARBON DIOXIDE 25 mmol/L (21-32); CHLORIDE 105 mmol/L (98-107); CREATININE 1.08 mg/dl (0.60-1.20); GLUCOSE 77 mg/dl (70-99); POTASSIUM 3.7 mmol/L (3.5-5.1); SODIUM 137 mmol/L (136-145)
== END ==
LOC: C.LABCC 09:03
PROVIDERS: ATTEND Internal Medicine
DX: I10 Essential (primary) hypertension (principal); D64.9 Anemia, unspecified

== ENCOUNTER → 2017-10-31 | Outpatient (CLI) | payer OTHER | LOC: C.LABCC 08:42 | PROVIDERS: ATTEND Internal Medicine | DX: R29.6 Repeated falls (principal); R26.89 Other abnormalities of gait and mobility ==

== ENCOUNTER → 2017-11-28 | Outpatient (CLI) | payer OTHER ==
[~2017-11-28] MED LIST changes: +ACET-1693 PO; -ACET325T96 PO
[2017-11-28 12:52] LABS: BASO % 0.5 %; BASO ABS # 0.03 K/uL (0-0.2); EOS % 5.8 %; EOS ABS # 0.33 K/uL (0-0.5); HEMATOCRIT 35.8 % (37-47); HEMOGLOBIN 11.7 g/dL (12.0-16.0); IG# 0.01 K/uL (0.00-0.02); LYMPH % 28.8 %; LYMPH ABS # 1.64 K/uL (1.2-3.4); MEAN CELL VOLUME 89.9 fL (80-100); MEAN CORPUSCULAR HEMOGLOBIN 29.4 pg (25-34); MEAN CORPUSCULAR HGB CONC 32.7 g/dl (32-36); MEAN PLATELET VOLUME 9.7 fL (7.4-10.4); MONO % 14.4 %; MONO ABS # 0.82 K/uL (0.11-0.59); NEUT % 50.3 %; NEUT ABS # 2.86 K/uL (1.4-6.5); PLATELET COUNT 282 K/uL (130-400); RED CELL DISTRIBUTION WIDTH CV 14.3 % (11.5-14.5); RED CELL DISTRIBUTION WIDTH SD 47.5 fL (36.4-46.3); WHITE BLOOD COUNT 5.69 K/uL (4.8-10.8)
== END ==
LOC: C.LABCC 17:44
PROVIDERS: ATTEND Internal Medicine
DX: G35 Multiple sclerosis (principal); R45.1 Restlessness and agitation; R29.6 Repeated falls; D64.9 Anemia, unspecified

== ENCOUNTER → 2017-12-25 | Outpatient (CLI) | payer OTHER | LOC: C.LABCC 09:54 | PROVIDERS: ATTEND Internal Medicine | DX: R41.82 Altered mental status, unspecified (principal); R50.9 Fever, unspecified ==

== ENCOUNTER → 2018-01-12 | Outpatient (CLI) | payer OTHER | LOC: C.LABCC 12:24 → C.LABSPEC 01-13 12:23 → C.LABCC 01-13 12:24 | PROVIDERS: ATTEND Internal Medicine | DX: R31.9 Hematuria, unspecified (principal); R32 Unspecified urinary incontinence ==

== ENCOUNTER → 2018-04-27 | Outpatient (CLI) | payer OTHER ==
[~2018-04-27] MED LIST changes: -ASPEC81 PO; +ASPI-320 PO; +LISI30TA3 PO; -LSNP/30 PO
== END ==
LOC: C.LABCC 18:11
PROVIDERS: ATTEND Internal Medicine
DX: R35.0 Frequency of micturition (principal); R41.82 Altered mental status, unspecified

== ENCOUNTER → 2018-05-11 | Outpatient (CLI) | payer OTHER ==
[2018-05-11 08:59] LABS: BLOOD UREA NITROGEN 35 mg/dl (7-18); CALCIUM 9.1 mg/dl (8.5-10.1); CARBON DIOXIDE 27 mmol/L (21-32); CREATININE 1.55 mg/dl (0.60-1.20); GLUCOSE 81 mg/dl (70-99); POTASSIUM 4.1 mmol/L (3.5-5.1); SODIUM 137 mmol/L (136-145)
== END ==
LOC: C.LABCC 08:10
PROVIDERS: ATTEND Internal Medicine
DX: I10 Essential (primary) hypertension (principal)

== ENCOUNTER → 2018-05-12 | Outpatient (CLI) | payer OTHER ==
[2018-05-12 08:53] LABS: BLOOD UREA NITROGEN 42 mg/dl (7-18); CREATININE 1.81 mg/dl (0.60-1.20); GLUCOSE 79 mg/dl (70-99)
[2018-05-12 08:54] LABS: CALCIUM 8.6 mg/dl (8.5-10.1); CARBON DIOXIDE 26 mmol/L (21-32); POTASSIUM 4.2 mmol/L (3.5-5.1); SODIUM 139 mmol/L (136-145)
== END ==
LOC: C.LABCC 08:17
PROVIDERS: ATTEND Internal Medicine
DX: N18.9 Chronic kidney disease, unspecified (principal)

== ENCOUNTER → 2018-05-17 | Outpatient (CLI) | payer OTHER ==
[2018-05-17 10:06] LABS: BLOOD UREA NITROGEN 47 mg/dl (7-18); CALCIUM 8.8 mg/dl (8.5-10.1); CARBON DIOXIDE 25 mmol/L (21-32); CREATININE 1.81 mg/dl (0.60-1.20); GLUCOSE 79 mg/dl (70-99); POTASSIUM 4.4 mmol/L (3.5-5.1); SODIUM 139 mmol/L (136-145)
== END ==
LOC: C.LABCC 08:56
PROVIDERS: ATTEND Internal Medicine
DX: N18.9 Chronic kidney disease, unspecified (principal)

== ENCOUNTER → 2018-05-18 | Outpatient (CLI) | payer OTHER ==
[2018-05-18 09:28] LABS: BLOOD UREA NITROGEN 39 mg/dl (7-18); CALCIUM 8.9 mg/dl (8.5-10.1); CARBON DIOXIDE 25 mmol/L (21-32); GLUCOSE 75 mg/dl (70-99); POTASSIUM 4.1 mmol/L (3.5-5.1); SODIUM 138 mmol/L (136-145)
== END ==
LOC: C.LABCC 08:35
PROVIDERS: ATTEND Internal Medicine
DX: N28.9 Disorder of kidney and ureter, unspecified (principal)

== ENCOUNTER 2019-10-02 03:09 | Inpatient (IN) ==
[2019-10-02] MEDS ORDERED: ACETAMINOPHEN 325 MG SUPP PR STA (03:13)
[2019-10-02] MEDS ORDERED: dilTIAZem HCl 5 MG/ML 5 ML VIAL IV STA ×2 (03:14→04:02)
[2019-10-02] MEDS ORDERED: VANCOMYCIN CONSULT ACTIVE PRN ×3 (03:16→07:03)
[2019-10-02] MEDS ORDERED: VANCOMYCIN HCL 1,250 MG in SODIUM CHLORIDE 0.9% 500 ML IV ONE (03:16)
[2019-10-02] MEDS: PIPERACILLIN/TAZOBACTAM 4.5 GM/120 ML BAG IV STA ×2 (03:19→03:29)
[2019-10-02] MEDS ORDERED: METOPROLOL TARTRATE 1 MG/ML VIAL IV STA ×4 (03:22→05:56)
[2019-10-02] MEDS ORDERED: SODIUM CHLORIDE 0.9% 1000ML 1,000 ML IV SCH (03:30)
[2019-10-02] MEDS ORDERED: LEVOFLOXACIN/D5W 750 MG/150 ML BAG IV SCH (03:30)
[2019-10-02 03:35] LABS: Hematocrit (blood only) 33.3 % (37-47); Hemoglobin 10.5 g/dL (12.0-16.0); Mean Corpuscular Hemoglobin 28.2 pg (25-34); Mean Corpuscular Hgb Conc 31.5 g/dL (32-36); Mean Corpuscular Volume 89.5 fL (80-100); Mean Platelet Volume 9.1 fL (7.4-10.4); Platelet Count 432 K/uL (130-400); RDW Coefficient of Variation 15.3 % (11.5-14.5); RDW Standard Deviation 49.4 fL (36.4-46.3); Red Blood Count 3.72 M/uL (4.2-5.4); White Blood Count 24.87 K/uL (4.8-10.8)
[2019-10-02 03:41] LABS: Appearance Urine Cloudy (Clear); Bacteria Urine Automated Negative (Negative); Bilirubin Urine Negative (Negative); Blood Urine 2+ (Negative); Color Urine Yellow; Epithelial Cell Urine Auto >30 /lpf (0-5); Glucose Urine UA Negative (Negative); Ketones Urine Trace (Negative); Leukocyte Esterase Urine Trace (Negative); Nitrite Urine Negative (Negative); Protein Urine 2+ (Negative); Urobilinogen Urine Negative (Negative)
[2019-10-02 03:45] LABS: INR 1.5 (0.9-1.1); Partial Thromboplastin Time 28.2 Seconds (21.0-31.0); Prothrombin Time 14.6 Seconds (9.0-12.0)
[2019-10-02 03:57] LABS: Basophils # (auto) 0.05 K/uL (0-0.2); Basophils % (auto) 0.2 %; Immature Granulocytes # (auto) 0.56 K/uL (0.00-0.02); Immature Granulocytes % (auto) 2.3 %; Lymphocytes # (auto) 0.82 K/uL (1.2-3.4); Lymphocytes % (auto) 3.3 %; Monocytes # (auto) 1.85 K/uL (0.11-0.59); Monocytes % (auto) 7.4 %; Neutrophils # (auto) 21.59 K/uL (1.4-6.5); Neutrophils % (auto) 86.8 %; RBC Morphology Unremarkable
[2019-10-02 03:59] LABS: Alanine Aminotransferase 18 U/L (12-78); Albumin Globulin Ratio 0.5 (0.9-2); Albumin Level 2.4 gm/dl (3.4-5.0); Alkaline Phosphatase 98 U/L (45-117); Aspartate Aminotransferase 18 U/L (15-37); BUN Creatinine Ratio 21.8 (10-20); Bilirubin,Total 0.3 mg/dl (0.2-1); Blood Urea Nitrogen 61 mg/dl (7-18); Calcium 8.4 mg/dl (8.5-10.1); Carbon Dioxide 20 mmol/L (21-32); Chloride 129 mmol/L (98-107); Est GFR (African American) 16.6; Est GFR (Non-African American) 14.3; Globulin 4.6 gm/dl (2.5-4.0); Glucose 142 mg/dl (70-99); Potassium 3.1 mmol/L (3.5-5.1); Sodium 157 mmol/L (136-145); Troponin I 0.197 ng/ml (0-0.045)
[2019-10-02] MEDS ORDERED: SODIUM CHLORIDE 0.9% 250 ML IV ONE (04:01)
[2019-10-02 04:04] LABS: Amorphous Sediment Urine Present (None Prsent)
[2019-10-02 04:37] LABS: Magnesium 2.4 mg/dl (1.8-2.4)
[2019-10-02] MEDS ORDERED: ALBUMIN HUMAN 25% 12.5 GM/50 ML VIAL IV ONE (04:48)
[2019-10-02] MEDS: POTASSIUM CHLORIDE / WTR 10 MEQ/100 ML PLCT IV SCH ×2 (04:52→06:07)
[2019-10-02] MEDS: ALBUMIN 25% 50 ML IV SCH ×2 (04:54→06:05)
--- NOTE | 2019-10-02 05:08 | History & Physical Report ---
Date of Service October 02, 2019 Assessment & Plan (1) Atrial fibrillation with RVR: 89-year-old female was admitted on 02 October 2019 for tachycardia, hypernatremia, dehydration, acute on chronic kidney injury, and possible ongoing aspiration pneumonia. Of note, patient is relatively nonverbal at baseline and is noncontributory to history. Afib with RVR, sepsis: PMH paroxysmal Afib, on xarelto. By report, diagnosed with aspiration pneumonia (though family denies known emesis) about four days ago. Started on azithromycin around Tuesday. Ongoing fever. Did receive a DuoNeb via EMS before arrival to ED. - In the ED, T-max 39.8. Tachycardic as high as 170s. Tachypneic. Mildly labile blood pressures. SpO2 around 97% on 4 L NC (not normally on oxygen). WBC 24, lactate 2.4. Troponin 0.197. EKG is afib with RVR rate 160. UA was cloudy, positive for protein, blood, WBCs and RBCs, and yeast. Blood and urine cultures sent. Negative for influenza. pCXR without overt infiltrate (formal rads read pending). - In the ED, was treated with multiple doses of metoprolol and Cardizem for initial rate control. Given small bolus of IVF and started on maintenance IVF. Started on vancomycin, Zosyn, and Levaquin (renal dosing initially). - Will trend lactate. Ordered albumin. Continue antibiotics as above. Source is unclear, perhaps urosepsis. Hypernatremia: Admit sodium 157. Suspect progressively worse dehydration over past few days. Current treatment challenge is balance between correcting hypernatremia too quickly and not providing enough IVF to help tachycardia. - Gave albumin 25 grams IV x 2 started in ED. - Will check serum and urine Osm. - Calculated free water deficit of 2.7 liters. Will start with D5W at 1.35 mL/kg/hr (66 mL/hr). - Recheck BMP in four hours. Hopefully will be able to adjust IVF for more volume at that point. Hypoxia: Reported SpO2 of 85% on RA prior to EMS transport. Since improved to 97% on 4L NC. No reports of recent aspiration pneumonia, although chest x-ray looks rather clear at present. - Continue to monitor oxygen saturations with a goal of SpO2 > 90% and wean to room air when possible. Anemia: Admit hemoglobin 10.5. No reported recent bleeding. Monitor for now. Elevated INR: Admit INR 1.5. Remaining LFTs are okay. Monitor for now. Hypokalemia: Admit K 3.1. Magnesium 2.4. KCl 20 mEq ordered in ED. - Continue replacement for a goal of K around 4. Needs close monitoring as patient is receiving D5W initially. Acute on chronic kidney injury: Admit creatinine 2.81. Recent comparisons below 2. BUN 61, also elevated compared to prior. Likely has pre-renal source. - Will check urine sodium. Rehydration as above, serial BMPs. Monitor UOP with rodriguez. Ongoing medical issues: - Hypertension, hyperlipidemia: Holding home Norvasc, Lipitor, metoprolol. - Mixed Alzheimer's and vascular dementia: Continue home venlafaxine. Code status: Full code. Diet: NPO except meds. DVT prophy: Xarelto. PT/OT: Deferred initially. Disbo: Admit to ICU. Critically ill. At baseline is resident of [facility]. (2) Sepsis: (3) Hypernatremia: (4) Hypoxia: (5) Anemia: (6) Elevated INR: (7) Hypokalemia: (8) [id number] kidney injury: (9) Hypertension: (10) HLD (hyperlipidemia): (11) Alzheimer's dementia: (12) Vascular dementia: History of Present Illness Primary Care Provider: [facility] 89-year-old female was brought in by EMS from [facility]. Patient herself has a history of mixed Alzheimer's and vascular dementia. Although she will mumble at times, she is functionally nonverbal and thus noncontributory to history. The below history is based on the ED's notes, discussion with ED staff, and discussion with patient's family at bedside. Reportedly, patient was diagnosed with aspiration pneumonia following a chest x- ray about 4 days ago. She was started on azithromycin 2 to 3 days ago. However, she continues to have fevers, as high as 103 this evening. EMS was called and she apparently was given Tylenol and a DuoNeb. She was also reported to have an oxygen saturation of 85% on room air which improved to 95% after being placed on supplemental oxygen. - Past medical history includes hypertension, hyperlipidemia, mixed Alzheimer's and vascular dementia, paroxysmal A. fib, osteoporosis, rhabdomyolysis, CVA, breast adenocarcinoma - Past surgical history includes right nephrectomy, right breast lumpectomy, appendectomy, left hip hemiarthroplasty - Social history includes no reported previous smoking or alcohol use. Lives at [facility]. Allergies Allergy/AdvReac Type Severity Reaction Status Date / Time morphine AdvReac Unknown hallucinati Verified 10/02/19 03:50 ons Home Medications Home Medications Medication Instructions Recorded Confirmed Type Combivent Respimat 20 - 100 mcg INHALATION Q6H PRN 06/18/18 10/02/19 History Xarelto 15 mg PO DAILY 06/18/18 10/02/19 History acetaminophen [Tylenol] 650 mg PO Q6H PRN 06/18/18 10/02/19 History amlodipine [Norvasc] 10 mg PO DAILY 06/18/18 10/02/19 History aspirin [Aspirin Childrens] 81 mg PO DAILY 06/18/18 10/02/19 History atorvastatin [Lipitor] 20 mg PO DAILY 06/18/18 10/02/19 History metoprolol tartrate 12.5 mg PO BID 06/18/18 10/02/19 History lorazepam 0.25 mg PO Q8 08/16/18 10/02/19 History azithromycin 250 mg PO DAILY 10/02/19 10/02/19 History hydrocortisone 2.5 % SC Q8 PRN 10/02/19 10/02/19 History ipratropium-albuterol 3 ml INHALATION Q4 PRN 10/02/19 10/02/19 History latanoprost 1 drp OPB DAILY 10/02/19 10/02/19 History menthol-zinc oxide [Calmoseptine] 1 applic TOPICAL QS 10/02/19 10/02/19 History venlafaxine 150 mg PO DAILY 10/02/19 10/02/19 History Past Med/Surg History Medical History Acute encephalopathy H/0 Acute kidney injury H/0 Altered mental status Atrial fibrillation Chronic back pain CVA (cerebral vascular accident) Dysphagia History of fall History of fracture of left hip History of fracture of right hip Hyperlexia (Chronic) Hyperlipidemia Hypertension (Chronic) Iron deficiency anemia Osteoporosis Osteoporosis Rhabdomyolysis H/O Surgical History History of cataract surgery LEFT History of hip surgery LEFT Family History (Updated 10/02/19 @ 03:47 by Tito Martinez) Other Family history non-contributory Social History Preferred Language: Polish Communication Ability: Unable Inspector Aide Required: No Beliefs That Will Affect Care: None Current Living Situation: Residential Current Living Situation Comment: RESIDENT AT [facility] Feels Safe at Home: Yes Smoking Status: Former smoker Tobacco Type: cigarettes ; Tobacco Cessation Education Requested by Patient: No Hx Alcohol Use: No Hx Substance Use: No Review of Systems Review of Systems: Unable to obtain ROS due to patient's baseline nonverbal status as well as acuity. Physical Exam Physical Exam: GENERAL: Awake, eyes open, difficult to assess whether she is responding to commands. Family at bedside says she appears more alert than on arrival to the ED. HENT: Normocephalic, atraumatic. Oropharynx is dry. EYES: Normal conjunctiva. Sclera non-icteric. NECK: Inspection normal. Non-tender. Supple and full ROM. No nuchal rigidity. CARDIAC: +S1S2 irregular irregular tachycardia, no murmurs. RESPIRATORY: Clear to auscultation. No wheezes or rales. Normal respiratory effort. GI: +BS, soft, non-distended. No rebound or guarding. Difficult to tell if any tenderness, though patient does inconsistently moan on palpation of the suprapubic area. EXTREMITIES: No pedal edema. She is not spontaneously moving her extremities, though she does squeeze both hands if you put your fingers on her palm. NEURO: Difficult to assess. PERRL bilaterally. Eyes are open and patient is making spontaneous moaning or crying out sounds. No spontaneous extremity movement. Results & Data Vital Signs (Past 12 Hours) Vital Signs Temp Pulse Pulse Resp BP BP Pulse Ox 10/02/19 05:00 122 H 36 H 106/65 98 10/02/19 04:55 122 H 46 H 102/79 98 10/02/19 04:50 119 H 46 H 115/74 97 10/02/19 04:45 127 H 32 H 108/74 98 10/02/19 04:42 130 H 111/82 10/02/19 04:40 135 H 40 H 111/82 98 10/02/19 04:35 133 H 42 H 118/63 97 10/02/19 04:32 123 H 40 H 116/84 97 10/02/19 04:29 126 H 38 H 91/67 L 98 10/02/19 04:20 38.3 C H 117 H 38 H 123/70 98 10/02/19 04:10 130 H 28 H 105/64 97 10/02/19 04:00 136 H 36 H 90/67 L 97 10/02/19 03:51 130 H 38 H 126/73 97 10/02/19 03:40 135 H 140 H 33 H 126/70 126/70 97 10/02/19 03:35 131 H 39 H 124/74 97 10/02/19 03:34 128 H 38 H 118/74 94 10/02/19 03:30 171 H 40 H 116/71 98 10/02/19 03:29 150 H 145/85 H 10/02/19 03:21 97 10/02/19 03:09 39.8 C H 147 H 28 H 145/85 H 98 Laboratory Results 10/02/19 10/02/19 10/02/19 Range/Units 05:27 05:27 03:28 WBC (4.8-10.8) K/uL RBC (4.2-5.4) M/uL Hgb (12.0-16.0) g/dL Hct (37-47) % MCV (80-100) fL MCH (25-34) pg MCHC (32-36) g/dL RDW Std Deviation (36.4-46.3) fL RDW Coeff of Boris (11.5-14.5) % Plt Count (130-400) K/uL MPV (7.4-10.4) fL Immature Gran % (Auto) % Neut % (Auto) % Lymph % (Auto) % [place] % (Auto) % Eos % (Auto) % Baso % (Auto) % Immature Gran # (Auto) (0.00-0.02) K/uL Neut # (Auto) (1.4-6.5) K/uL Lymph # (Auto) (1.2-3.4) K/uL [place] # (Auto) (0.11-0.59) K/uL Eos # (Auto) (0-0.5) K/uL Baso # (Auto) (0-0.2) K/uL RBC Morphology PT (9.0-12.0) Seconds INR (0.9-1.1) APTT (21.0-31.0) Seconds PTT Ratio Sodium (136-145) mmol/L Potassium (3.5-5.1) mmol/L Chloride (98-107) mmol/L Carbon Dioxide (21-32) mmol/L Anion Gap (3-11) BUN (7-18) mg/dl Creatinine (0.6-1.2) mg/dl Est Cr Clr Drug Dosing Est GFR ( Amer) Est GFR (Non-Af Amer) BUN/Creatinine Ratio (10-20) Glucose (70-99) mg/dl Osmolality Pending Lactate Pending (0.4-2.0) mmol/L Calcium (8.5-10.1) mg/dl Magnesium (1.8-2.4) mg/dl Total Bilirubin (0.2-1) mg/dl AST (15-37) U/L ALT (12-78) U/L Alkaline Phosphatase (45-117) U/L Troponin I (0-0.045) ng/ml Total Protein (6.4-8.2) gm/dl Albumin (3.4-5.0) gm/dl Globulin (2.5-4.0) gm/dl Albumin/Globulin Ratio (0.9-2) Urine Color Yellow Urine Appearance Cloudy A (Clear) Urine pH 5.0 (4.5-7.5) Ur Specific [place] 1.020 (1.000-1.030) Urine Protein 2+ H (Negative) Urine Glucose (UA) Negative (Negative) Urine Ketones Trace H (Negative) Urine Blood 2+ H (Negative) Urine Nitrite Negative (Negative) Urine Bilirubin Negative (Negative) Urine Urobilinogen Negative (Negative) Ur Leukocyte Esterase Trace H (Negative) Urine WBC (Auto) 5-10 H (0-5) /hpf Urine RBC (Auto) 5-10 H (0-4) /hpf U Hyaline Cast (Auto) 5-10 H (0-5) /lpf U Epithel Cells (Auto) >30 H (0-5) /lpf Urine Bacteria (Auto) Negative (Negative) Ur Renal Epithelial Cell Not Reportable Amorphous Sediment Present A (None Prsent) Urine Yeast Present A (None Prsent) Influenza Type A Ag (Neg) Influenza Type B Ag (Neg) 10/02/19 10/02/19 10/02/19 Range/Units 03:24 03:22 03:22 WBC (4.8-10.8) K/uL RBC (4.2-5.4) M/uL Hgb (12.0-16.0) g/dL Hct (37-47) % MCV (80-100) fL MCH (25-34) pg MCHC (32-36) g/dL RDW Std Deviation (36.4-46.3) fL RDW Coeff of Boris (11.5-14.5) % Plt Count (130-400) K/uL MPV (7.4-10.4) fL Immature Gran % (Auto) % Neut % (Auto) % Lymph % (Auto) % [place] % (Auto) % Eos % (Auto) % Baso % (Auto) % Immature Gran # (Auto) (0.00-0.02) K/uL Neut # (Auto) (1.4-6.5) K/uL Lymph # (Auto) (1.2-3.4) K/uL [place] # (Auto) (0.11-0.59) K/uL Eos # (Auto) (0-0.5) K/uL Baso # (Auto) (0-0.2) K/uL RBC Morphology PT 14.6 H (9.0-12.0) Seconds INR 1.5 H (0.9-1.1) APTT 28.2 (21.0-31.0) Seconds PTT Ratio 1.0 Sodium (136-145) mmol/L Potassium (3.5-5.1) mmol/L Chloride (98-107) mmol/L Carbon Dioxide (21-32) mmol/L Anion Gap (3-11) BUN (7-18) mg/dl Creatinine (0.6-1.2) mg/dl Est Cr Clr Drug Dosing Est GFR ( Amer) Est GFR (Non-Af Amer) BUN/Creatinine Ratio (10-20) Glucose (70-99) mg/dl Osmolality Lactate 2.4 H* (0.4-2.0) mmol/L Calcium (8.5-10.1) mg/dl Magnesium (1.8-2.4) mg/dl Total Bilirubin (0.2-1) mg/dl AST (15-37) U/L ALT (12-78) U/L Alkaline Phosphatase (45-117) U/L Troponin I (0-0.045) ng/ml Total Protein (6.4-8.2) gm/dl Albumin (3.4-5.0) gm/dl Globulin (2.5-4.0) gm/dl Albumin/Globulin Ratio (0.9-2) Urine Color Urine Appearance (Clear) Urine pH (4.5-7.5) Ur Specific [place] (1.000-1.030) Urine Protein (Negative) Urine Glucose (UA) (Negative) Urine Ketones (Negative) Urine Blood (Negative) Urine Nitrite (Negative) Urine Bilirubin (Negative) Urine Urobilinogen (Negative) Ur Leukocyte Esterase (Negative) Urine WBC (Auto) (0-5) /hpf Urine RBC (Auto) (0-4) /hpf U Hyaline Cast (Auto) (0-5) /lpf U Epithel Cells (Auto) (0-5) /lpf Urine Bacteria (Auto) (Negative) Ur Renal Epithelial Cell Amorphous Sediment (None Prsent) Urine Yeast (None Prsent) Influenza Type A Ag Neg for Influ A (Neg) Influenza Type B Ag Neg for Influ B (Neg) 10/02/19 10/02/19 Range/Units 03:22 03:22 WBC 24.87 H (4.8-10.8) K/uL RBC 3.72 L (4.2-5.4) M/uL Hgb 10.5 L (12.0-16.0) g/dL Hct 33.3 L (37-47) % MCV 89.5 (80-100) fL MCH 28.2 (25-34) pg MCHC 31.5 L (32-36) g/dL RDW Std Deviation 49.4 H (36.4-46.3) fL RDW Coeff of Boris 15.3 H (11.5-14.5) % Plt Count 432 H (130-400) K/uL MPV 9.1 (7.4-10.4) fL Immature Gran % (Auto) 2.3 % Neut % (Auto) 86.8 % Lymph % (Auto) 3.3 % [place] % (Auto) 7.4 % Eos % (Auto) 0.0 % Baso % (Auto) 0.2 % Immature Gran # (Auto) 0.56 H (0.00-0.02) K/uL Neut # (Auto) 21.59 H (1.4-6.5) K/uL Lymph # (Auto) 0.82 L (1.2-3.4) K/uL [place] # (Auto) 1.85 H (0.11-0.59) K/uL Eos # (Auto) 0.00 (0-0.5) K/uL Baso # (Auto) 0.05 (0-0.2) K/uL RBC Morphology Unremarkable PT (9.0-12.0) Seconds INR (0.9-1.1) APTT (21.0-31.0) Seconds PTT Ratio Sodium 157 H* (136-145) mmol/L Potassium 3.1 L (3.5-5.1) mmol/L Chloride 129 H (98-107) mmol/L Carbon Dioxide 20 L (21-32) mmol/L Anion Gap 8.0 (3-11) BUN 61 H (7-18) mg/dl Creatinine 2.81 H (0.6-1.2) mg/dl Est Cr Clr Drug Dosing Not Reportable Est GFR ( Amer) 16.6 Est GFR (Non-Af Amer) 14.3 BUN/Creatinine Ratio 21.8 H (10-20) Glucose 142 H (70-99) mg/dl Osmolality Lactate (0.4-2.0) mmol/L Calcium 8.4 L (8.5-10.1) mg/dl Magnesium 2.4 (1.8-2.4) mg/dl Total Bilirubin 0.3 (0.2-1) mg/dl AST 18 (15-37) U/L ALT 18 (12-78) U/L Alkaline Phosphatase 98 (45-117) U/L Troponin I 0.197 H* (0-0.045) ng/ml Total Protein 7.0 (6.4-8.2) gm/dl Albumin 2.4 L (3.4-5.0) gm/dl Globulin 4.6 H (2.5-4.0) gm/dl Albumin/Globulin Ratio 0.5 L (0.9-2) Urine Color Urine Appearance (Clear) Urine pH (4.5-7.5) Ur Specific [place] (1.000-1.030) Urine Protein (Negative) Urine Glucose (UA) (Negative) Urine Ketones (Negative) Urine Blood (Negative) Urine Nitrite (Negative) Urine Bilirubin (Negative) Urine Urobilinogen (Negative) Ur Leukocyte Esterase (Negative) Urine WBC (Auto) (0-5) /hpf Urine RBC (Auto) (0-4) /hpf U Hyaline Cast (Auto) (0-5) /lpf U Epithel Cells (Auto) (0-5) /lpf Urine Bacteria (Auto) (Negative) Ur Renal Epithelial Cell Amorphous Sediment (None Prsent) Urine Yeast (None Prsent) Influenza Type A Ag (Neg) Influenza Type B Ag (Neg) Medications Administered Vancomycin HCl 1,250 mg/ (Sodium Chloride) 525 mls @ 200 mls/hr IV NOW ONE Stop: 10/02/19 05:53 Last Admin: 10/02/19 04:05 Dose: 200 mls/hr Documented by: [id number] Levofloxacin/Dextrose (Levaquin/D5w) 750 mg in 150 mls @ 100 mls/hr IV Q24H [facility] Stop: 10/04/19 03:29 Last Admin: 10/02/19 03:39 Dose: 100 mls/hr Documented by: [id number] Sodium Chloride (Nss 1000ml) 1,000 mls @ 125 mls/hr IV .Q8H [facility] Stop: 11/01/19 03:29 Last Admin: 10/02/19 03:35 Dose: 125 mls/hr Documented by: [id number] Potassium Chloride (K Florin / Wtr) 10 meq in 100 mls @ 100 mls/hr IV Q1H [facility] Stop: 10/02/19 06:14 Last Admin: 10/02/19 04:52 Dose: 100 mls/hr Documented by: [id number] Albumin Human (Albumin 25%) 50 mls @ 50 mls/hr IV Q1H [facility] Stop: 10/02/19 06:59 Last Admin: 10/02/19 04:54 Dose: 50 mls/hr Documented by: [id number] Discontinued Medications Acetaminophen (Tylenol) 325 mg SC NOW STA Stop: 10/02/19 03:14 Last Admin: 10/02/19 03:18 Dose: 325 mg Documented by: [id number] Albumin Human (Albumin 25%) Confirm Administered Dose 12.5 gm IV .STK-MED ONE Stop: 10/02/19 04:49 Last Admin: 10/02/19 04:56 Dose: Not Given Documented by: [id number] Diltiazem HCl (Cardizem) 10 mg IV NOW STA Stop: 10/02/19 03:15 Last Admin: 10/02/19 03:18 Dose: 10 mg Documented by: [id number] Cosigned by: [id number] Diltiazem HCl (Cardizem) 10 mg IV NOW STA Stop: 10/02/19 04:03 Last Admin: 10/02/19 04:12 Dose: 10 mg Documented by: [id number] Cosigned by: [id number] Piperacillin Sod/Tazobactam Sod (Zosyn) 4.5 gm in 120 mls @ 200 mls/hr IV NOW STA Stop: 10/02/19 03:48 Last Infusion: 10/02/19 04:05 Dose: 0 mls/hr Documented by: [id number] Admin: 10/02/19 03:29 Dose: 200 mls/hr Documented by: [id number] Sodium Chloride (Nss) 250 mls @ 999 mls/hr IV .Q16M ONE Stop: 10/02/19 04:16 Last Infusion: 10/02/19 04:21 Dose: 0 mls/hr Documented by: [id number] Admin: 10/02/19 04:05 Dose: 999 mls/hr Documented by: [id number] Metoprolol Tartrate (Lopressor) 5 mg IV NOW STA Stop: 10/02/19 03:23 Last Admin: 10/02/19 03:29 Dose: 5 mg Documented by: [id number] Metoprolol Tartrate (Lopressor) 5 mg IV NOW STA Stop: 10/02/19 03:54 Last Admin: 10/02/19 05:14 Dose: Not Given Documented by: [id number] Metoprolol Tartrate (Lopressor) 2.5 mg IV NOW STA Stop: 10/02/19 04:39 Last Admin: 10/02/19 04:42 Dose: 2.5 mg Documented by: [id number] Code Status & VTE Plan Code Status Full code VTE Prophylaxis Plan VTE Prophylaxis will be ordered: Yes Critical Care Time Critical Care Time: Yes Total Critical Care Time: 50 Total critical care time was 50 minutes Supervising Physician Co-Signing Physician Notes Attending addendum: I have physically seen this patient, have supervised the medical residents activities, and agree with the H&P unless as otherwise noted. Assessment and Plan: Atrial fibrillation with RVR/elevated troponin/hypotension- Admit to intensive care unit. Continue Xarelto. Likely secondary metabolic stresses: Hyponatremia, aspiration pneumonia and sepsis with hypotension. Received 1750 mils of normal saline from the ED. Given 25 g of albumin IV x2 to stabilize blood pressure Aspiration pneumonia/hypoxia- Continue vancomycin IV and Zosyn IV. Duonebs every 4 hours while awake and every 2 hours when necessary. Taper nasal cannula O2 as symptomatically improves. Hypernatremia- Sodium level 157 Check a serum osmolality and urine osmolality. Placed on D5 half-normal at 65 mL's per hour. Follow serial BMP and magnesium levels. Remainder of orders per ICU staff. Resident Activity Tracking Resident Involvement: Resident Care Provided Care Provided: Adult Hospital Medicine
--- NOTE | 2019-10-02 05:09 | Emergency Department Note ---
Entered by Tito Martinez acting as a scribe for History of Present Illness General Chief complaint: Tachycardia Stated complaint: SOB, tachycardia Time Seen by Provider: 10/02/19 03:13 Source: EMS Mode of arrival: EMS Limitations: altered mental status History of Present Illness The patient is an 89 y/o female who presents to the ED w/ CC of constant tachycardia. EMS states the patient presents from [facility]. They report she was diagnosed with aspiration pneumonia this weekend per a chest x-ray and started on a z-pack on Tuesday and gave her two doses. EMS notes the patient had a low grade fever throughout the weekend and did not give her Tylenol until tonight when her fever jose to 103 degrees F. They state the patient was given 650mg of Tylenol and a Duoneb before EMS arrived. EMS reports the patient was tachypneic on arrival. They note her blood pressure was 140 systolic, and she was tachycardic in the 140s. EMS states the patient was given 10mg of IV Cardizem in route, and her HR dropped to 130 but shortly jose back to 140. They report the patient had an O2Sat of 85 on RA which jose to around 95 after being placed on 4L of O2. HPI limited secondary to the patient's altered mental status. Home Medications Home Medications Medication Instructions Recorded Confirmed Type Combivent Respimat 20 - 100 mcg INHALATION Q6H PRN 06/18/18 10/02/19 History Xarelto 15 mg PO DAILY 06/18/18 10/02/19 History acetaminophen [Tylenol] 650 mg PO Q6H PRN 06/18/18 10/02/19 History amlodipine [Norvasc] 10 mg PO DAILY 06/18/18 10/02/19 History aspirin [Aspirin Childrens] 81 mg PO DAILY 06/18/18 10/02/19 History atorvastatin [Lipitor] 20 mg PO DAILY 06/18/18 10/02/19 History metoprolol tartrate 12.5 mg PO BID 06/18/18 10/02/19 History lorazepam 0.25 mg PO Q8 08/16/18 10/02/19 History azithromycin 250 mg PO DAILY 10/02/19 10/02/19 History hydrocortisone 2.5 % WA Q8 PRN 10/02/19 10/02/19 History ipratropium-albuterol 3 ml INHALATION Q4 PRN 10/02/19 10/02/19 History latanoprost 1 drp OPB DAILY 10/02/19 10/02/19 History menthol-zinc oxide [Calmoseptine] 1 applic TOPICAL QS 10/02/19 10/02/19 History venlafaxine 150 mg PO DAILY 10/02/19 10/02/19 History Allergies Allergy/AdvReac Type Severity Reaction Status Date / Time morphine AdvReac Unknown hallucinati Verified 10/02/19 03:50 ons Past Med/Surg History Medical History Acute encephalopathy H/0 Acute kidney injury H/0 Altered mental status Atrial fibrillation Chronic back pain CVA (cerebral vascular accident) Dysphagia History of fall History of fracture of left hip History of fracture of right hip Hyperlexia (Chronic) Hyperlipidemia Hypertension (Chronic) Iron deficiency anemia Osteoporosis Osteoporosis Rhabdomyolysis H/O Surgical History History of cataract surgery LEFT History of hip surgery LEFT Family History (Updated 10/02/19 @ 03:47 by Tito Martinez) Other Family history non-contributory Social History Preferred Language: Spanish Communication Ability: Effective Embroiderer Required: No Beliefs That Will Affect Care: None Current Living Situation: [facility] Current Living Situation Comment: [facility] AT [facility] Feels Safe at Home: Yes Smoking Status: Former smoker Tobacco Type: cigarettes ; Tobacco Cessation Education Requested by Patient: No Hx Alcohol Use: No Hx Substance Use: No Review of Systems Other (ROS limited secondary to the patient's altered mental status.) Physical Exam Vital Signs Vital Signs - 24 hr 10/02/19 03:09 10/02/19 03:21 10/02/19 03:29 Temperature 39.8 C H Temperature Source Rectal Pulse Rate 147 H 150 H Pulse Rate [Finger] Pulse Rate from SpO2 Sensor Pulse Rhythm Regular Pulse Strength Normal Respiratory Rate 28 H Respiratory Effort / Characteristics Spontaneous Respiratory Depth Shallow Respiratory Pattern Tachypnea Blood Pressure 145/85 H 145/85 H Blood Pressure [Right Arm] Blood Pressure Mean 105 Blood Pressure Mean [Right Arm] Pulse Oximetry 98 97 Oxygen Delivery Method Nasal Cannula Nasal Cannula Oxygen Flow Rate 4 4 Sepsis Recent Fever Within 48 Hours Yes Sepsis Action Taken by Nursing Physician Notified 10/02/19 03:30 10/02/19 03:34 10/02/19 03:35 Temperature Temperature Source Pulse Rate 171 H 128 H 131 H Pulse Rate [Finger] Pulse Rate from SpO2 Sensor Pulse Rhythm Pulse Strength Respiratory Rate 40 H 38 H 39 H Respiratory Effort / Characteristics Respiratory Depth Respiratory Pattern Blood Pressure 116/71 118/74 124/74 Blood Pressure [Right Arm] Blood Pressure Mean 105 94 101 Blood Pressure Mean [Right Arm] Pulse Oximetry 98 94 97 Oxygen Delivery Method Oxygen Flow Rate Sepsis Recent Fever Within 48 Hours Sepsis Action Taken by Nursing 10/02/19 03:40 10/02/19 03:51 10/02/19 04:00 Temperature Temperature Source Pulse Rate 135 H Pulse Rate [Finger] 140 H 130 H 136 H Pulse Rate from SpO2 Sensor Pulse Rhythm Pulse Strength Respiratory Rate 33 H 38 H 36 H Respiratory Effort / Characteristics Labored Labored Respiratory Depth Respiratory Pattern Blood Pressure 126/70 Blood Pressure [Right Arm] 126/70 126/73 90/67 L Blood Pressure Mean 92 Blood Pressure Mean [Right Arm] 88 90 74 Pulse Oximetry 97 97 97 Oxygen Delivery Method Nasal Cannula Nasal Cannula Nasal Cannula Oxygen Flow Rate 4 4 4 Sepsis Recent Fever Within 48 Hours Sepsis Action Taken by Nursing 10/02/19 04:10 10/02/19 04:20 10/02/19 04:29 Temperature 38.3 C H Temperature Source Rectal Pulse Rate Pulse Rate [Finger] 130 H 117 H 126 H Pulse Rate from SpO2 Sensor Pulse Rhythm Pulse Strength Respiratory Rate 28 H 38 H 38 H Respiratory Effort / Characteristics Labored Labored Respiratory Depth Respiratory Pattern Blood Pressure Blood Pressure [Right Arm] 105/64 123/70 91/67 L Blood Pressure Mean Blood Pressure Mean [Right Arm] 77 87 75 Pulse Oximetry 97 98 98 Oxygen Delivery Method Nasal Cannula Nasal Cannula Nasal Cannula Oxygen Flow Rate 4 4 4 Sepsis Recent Fever Within 48 Hours Sepsis Action Taken by Nursing 10/02/19 04:32 10/02/19 04:35 10/02/19 04:40 Temperature Temperature Source Pulse Rate 133 H 135 H Pulse Rate [Finger] 123 H Pulse Rate from SpO2 Sensor Pulse Rhythm Pulse Strength Respiratory Rate 40 H 42 H 40 H Respiratory Effort / Characteristics Labored Respiratory Depth Respiratory Pattern Blood Pressure 118/63 111/82 Blood Pressure [Right Arm] 116/84 Blood Pressure Mean 67 91 Blood Pressure Mean [Right Arm] 94 Pulse Oximetry 97 97 98 Oxygen Delivery Method Nasal Cannula Oxygen Flow Rate 4 Sepsis Recent Fever Within 48 Hours Sepsis Action Taken by Nursing 10/02/19 04:42 10/02/19 04:45 10/02/19 04:50 Temperature Temperature Source Pulse Rate 130 H 127 H 119 H Pulse Rate [Finger] Pulse Rate from SpO2 Sensor Pulse Rhythm Pulse Strength Respiratory Rate 32 H 46 H Respiratory Effort / Characteristics Respiratory Depth Respiratory Pattern Blood Pressure 111/82 108/74 115/74 Blood Pressure [Right Arm] Blood Pressure Mean 91 82 Blood Pressure Mean [Right Arm] Pulse Oximetry 98 97 Oxygen Delivery Method Oxygen Flow Rate Sepsis Recent Fever Within 48 Hours Sepsis Action Taken by Nursing 10/02/19 04:55 10/02/19 05:00 Temperature Temperature Source Pulse Rate 122 H Pulse Rate [Finger] 122 H Pulse Rate from SpO2 Sensor 139 H Pulse Rhythm Pulse Strength Respiratory Rate 46 H 36 H Respiratory Effort / Characteristics Labored Respiratory Depth Respiratory Pattern Blood Pressure 102/79 Blood Pressure [Right Arm] 106/65 Blood Pressure Mean 90 Blood Pressure Mean [Right Arm] 78 Pulse Oximetry 98 98 Oxygen Delivery Method Nasal Cannula Oxygen Flow Rate Sepsis Recent Fever Within 48 Hours Sepsis Action Taken by Nursing Vital signs reviewed. General: Elderly and critically ill-appearing 89 y/o female. HEENT: No scleral icterus, PERRLA, neck supple. Atraumatic. Cardiovascular: Tachycardic rate and irregularly irregular rhythm, no extra sounds. Pulmonary: Coarse breath sounds bilaterally, normal work of breathing on NC oxygen. Abdomen: Soft, nontender, nondistended, positive bowel sounds. Musculoskeletal: Atraumatic, no peripheral edema. Neurologic: Patient awake and alert. She does not repsond to commands. Speech is garbled. Skin: Warm to touch, dry, mottling noted to the bilateral lower extremities. Course Course 0308: Past medical records reviewed. The patient was evaluated in room B01. A complete history and physical examination was performed. 0411: Upon reevaluation, the patient is resting comfortably. I discussed laboratory and radiographic results with her. She verbalized agreement of the treatment plan. The patient will be evaluated for further management and care. 0437: I reviewed the patient's case with Dr. Medina, [facility] Hospitalist. He will evaluate the patient for further management. Administered Medications Levofloxacin/Dextrose (Levaquin/D5w) 750 mg in 150 mls @ 100 mls/hr IV Q24H LISA Stop: 10/02/20 06:30 Last Infusion: 10/02/19 04:54 Dose: 0 mls/hr Documented by: [id number] Admin: 10/02/19 03:39 Dose: 100 mls/hr Documented by: [id number] Albumin Human (Albumin 25%) 50 mls @ 50 mls/hr IV Q1H LISA Stop: 10/02/19 06:59 Last Admin: 10/02/19 06:05 Dose: 50 mls/hr Documented by: [id number] Infusion: 10/02/19 05:54 Dose: 50 mls/hr Documented by: [id number] Admin: 10/02/19 04:54 Dose: 50 mls/hr Documented by: [id number] Dextrose (D5w) 1,000 mls @ 65 mls/hr IV .[id number] LISA Stop: 11/01/19 05:59 Last Admin: 10/02/19 06:07 Dose: 75 mls/hr Documented by: [id number] Potassium Chloride (K Florin / Wtr) 10 meq in 100 mls @ 100 mls/hr IV ONE ONE Stop: 10/02/19 07:09 Last Admin: 10/02/19 06:44 Dose: 100 mls/hr Documented by: [id number] Discontinued Medications Acetaminophen (Tylenol) 325 mg WA NOW STA Stop: 10/02/19 03:14 Last Admin: 10/02/19 03:18 Dose: 325 mg Documented by: [id number] Albumin Human (Albumin 25%) Confirm Administered Dose 12.5 gm IV .STK-MED ONE Stop: 10/02/19 04:49 Last Admin: 10/02/19 04:56 Dose: Not Given Documented by: [id number] Diltiazem HCl (Cardizem) 10 mg IV NOW STA Stop: 10/02/19 03:15 Last Admin: 10/02/19 03:18 Dose: 10 mg Documented by: [id number] Cosigned by: [id number] Diltiazem HCl (Cardizem) 10 mg IV NOW STA Stop: 10/02/19 04:03 Last Admin: 10/02/19 04:12 Dose: 10 mg Documented by: [id number] Cosigned by: [id number] Piperacillin Sod/Tazobactam Sod (Zosyn) 4.5 gm in 120 mls @ 200 mls/hr IV NOW STA Stop: 10/02/19 03:48 Last Infusion: 10/02/19 04:05 Dose: 0 mls/hr Documented by: [id number] Admin: 10/02/19 03:29 Dose: 200 mls/hr Documented by: [id number] Vancomycin HCl 1,250 mg/ (Sodium Chloride) 525 mls @ 200 mls/hr IV NOW ONE Stop: 10/02/19 05:53 Last Admin: 10/02/19 04:05 Dose: 200 mls/hr Documented by: [id number] Sodium Chloride (Nss 1000ml) 1,000 mls @ 125 mls/hr IV .Q8H LISA Stop: 11/01/19 03:29 Last Infusion: 10/02/19 06:08 Dose: 0 mls/hr Documented by: [id number] Admin: 10/02/19 03:35 Dose: 125 mls/hr Documented by: [id number] Sodium Chloride (Nss) 250 mls @ 999 mls/hr IV .Q16M ONE Stop: 10/02/19 04:16 Last Infusion: 10/02/19 04:21 Dose: 0 mls/hr Documented by: [id number] Admin: 10/02/19 04:05 Dose: 999 mls/hr Documented by: [id number] Potassium Chloride (K Florin / Wtr) 10 meq in 100 mls @ 100 mls/hr IV Q1H LISA Stop: 10/02/19 06:14 Last Admin: 10/02/19 06:07 Dose: 100 mls/hr Documented by: [id number] Infusion: 10/02/19 05:52 Dose: 100 mls/hr Documented by: [id number] Admin: 10/02/19 04:52 Dose: 100 mls/hr Documented by: [id number] Metoprolol Tartrate (Lopressor) 5 mg IV NOW STA Stop: 10/02/19 03:23 Last Admin: 10/02/19 03:29 Dose: 5 mg Documented by: [id number] Metoprolol Tartrate (Lopressor) 5 mg IV NOW STA Stop: 10/02/19 03:54 Last Admin: 10/02/19 05:14 Dose: Not Given Documented by: [id number] Metoprolol Tartrate (Lopressor) 2.5 mg IV NOW STA Stop: 10/02/19 04:39 Last Admin: 10/02/19 04:42 Dose: 2.5 mg Documented by: [id number] Metoprolol Tartrate (Lopressor) 5 mg IV NOW STA Stop: 10/02/19 05:57 Last Admin: 10/02/19 06:06 Dose: 5 mg Documented by: [id number] Critical Care Time Critical Care Time: Yes Total Critical Care Time: 90 I have personally spent greater than 90 minutes of critical care time in the direct management of this patient. This includes bedside care, interpretation of diagnostic studies, and testing, discussion with consultants, patient, and family members, and other required patient management activities. This 90 minutes is in excess of all separately billable procedures. Medical Decision Making Differential Diagnosis Differential diagnosis: Etiologies such as viral syndrome, otitis, pharyngitis, pneumonia, influenza, meningitis, urinary tract infection, sepsis, bacteremia, as well as others were entertained. Medical Records Attestation: I reviewed the patient's medical records. Home Medications Current Medication List: was personally reviewed by me Laboratory Data Attestation: I reviewed the patient's lab results. Result diagrams: 10/02/19 03:22 10/02/19 03:22 Lab Results 10/02/19 10/02/19 10/02/19 Range/Units 03:22 03:22 03:22 WBC 24.87 H (4.8-10.8) K/uL RBC 3.72 L (4.2-5.4) M/uL Hgb 10.5 L (12.0-16.0) g/dL Hct 33.3 L (37-47) % MCV 89.5 (80-100) fL MCH 28.2 (25-34) pg MCHC 31.5 L (32-36) g/dL RDW Std Deviation 49.4 H (36.4-46.3) fL RDW Coeff of Boris 15.3 H (11.5-14.5) % Plt Count 432 H (130-400) K/uL MPV 9.1 (7.4-10.4) fL Immature Gran % (Auto) 2.3 % Neut % (Auto) 86.8 % Lymph % (Auto) 3.3 % Newton % (Auto) 7.4 % Eos % (Auto) 0.0 % Baso % (Auto) 0.2 % Immature Gran # (Auto) 0.56 H (0.00-0.02) K/uL Neut # (Auto) 21.59 H (1.4-6.5) K/uL Lymph # (Auto) 0.82 L (1.2-3.4) K/uL Newton # (Auto) 1.85 H (0.11-0.59) K/uL Eos # (Auto) 0.00 (0-0.5) K/uL Baso # (Auto) 0.05 (0-0.2) K/uL RBC Morphology Unremarkable PT (9.0-12.0) Seconds INR (0.9-1.1) APTT (21.0-31.0) Seconds PTT Ratio Sodium 157 H* (136-145) mmol/L Potassium 3.1 L (3.5-5.1) mmol/L Chloride 129 H (98-107) mmol/L Carbon Dioxide 20 L (21-32) mmol/L Anion Gap 8.0 (3-11) BUN 61 H (7-18) mg/dl Creatinine 2.81 H (0.6-1.2) mg/dl Est Cr Clr Drug Dosing Not Reportable Est GFR ( Amer) 16.6 Est GFR (Non-Af Amer) 14.3 BUN/Creatinine Ratio 21.8 H (10-20) Glucose 142 H (70-99) mg/dl Lactate 2.4 H* (0.4-2.0) mmol/L Calcium 8.4 L (8.5-10.1) mg/dl Magnesium 2.4 (1.8-2.4) mg/dl Total Bilirubin 0.3 (0.2-1) mg/dl AST 18 (15-37) U/L ALT 18 (12-78) U/L Alkaline Phosphatase 98 (45-117) U/L Troponin I 0.197 H* (0-0.045) ng/ml Total Protein 7.0 (6.4-8.2) gm/dl Albumin 2.4 L (3.4-5.0) gm/dl Globulin 4.6 H (2.5-4.0) gm/dl Albumin/Globulin Ratio 0.5 L (0.9-2) Urine Color Urine Appearance (Clear) Urine pH (4.5-7.5) Ur Specific [place] (1.000-1.030) Urine Protein (Negative) Urine Glucose (UA) (Negative) Urine Ketones (Negative) Urine Blood (Negative) Urine Nitrite (Negative) Urine Bilirubin (Negative) Urine Urobilinogen (Negative) Ur Leukocyte Esterase (Negative) Urine WBC (Auto) (0-5) /hpf Urine RBC (Auto) (0-4) /hpf U Hyaline Cast (Auto) (0-5) /lpf U Epithel Cells (Auto) (0-5) /lpf Urine Bacteria (Auto) (Negative) Ur Renal Epithelial Cell Amorphous Sediment (None Prsent) Urine Yeast (None Prsent) Ur Random Sodium mmol/L Influenza Type A Ag (Neg) Influenza Type B Ag (Neg) 10/02/19 10/02/19 10/02/19 Range/Units 03:22 03:24 03:28 WBC (4.8-10.8) K/uL RBC (4.2-5.4) M/uL Hgb (12.0-16.0) g/dL Hct (37-47) % MCV (80-100) fL MCH (25-34) pg MCHC (32-36) g/dL RDW Std Deviation (36.4-46.3) fL RDW Coeff of Boris (11.5-14.5) % Plt Count (130-400) K/uL MPV (7.4-10.4) fL Immature Gran % (Auto) % Neut % (Auto) % Lymph % (Auto) % Newton % (Auto) % Eos % (Auto) % Baso % (Auto) % Immature Gran # (Auto) (0.00-0.02) K/uL Neut # (Auto) (1.4-6.5) K/uL Lymph # (Auto) (1.2-3.4) K/uL Newton # (Auto) (0.11-0.59) K/uL Eos # (Auto) (0-0.5) K/uL Baso # (Auto) (0-0.2) K/uL RBC Morphology PT 14.6 H (9.0-12.0) Seconds INR 1.5 H (0.9-1.1) APTT 28.2 (21.0-31.0) Seconds PTT Ratio 1.0 Sodium (136-145) mmol/L Potassium (3.5-5.1) mmol/L Chloride (98-107) mmol/L Carbon Dioxide (21-32) mmol/L Anion Gap (3-11) BUN (7-18) mg/dl Creatinine (0.6-1.2) mg/dl Est Cr Clr Drug Dosing Est GFR ( Amer) Est GFR (Non-Af Amer) BUN/Creatinine Ratio (10-20) Glucose (70-99) mg/dl Lactate (0.4-2.0) mmol/L Calcium (8.5-10.1) mg/dl Magnesium (1.8-2.4) mg/dl Total Bilirubin (0.2-1) mg/dl AST (15-37) U/L ALT (12-78) U/L Alkaline Phosphatase (45-117) U/L Troponin I (0-0.045) ng/ml Total Protein (6.4-8.2) gm/dl Albumin (3.4-5.0) gm/dl Globulin (2.5-4.0) gm/dl Albumin/Globulin Ratio (0.9-2) Urine Color Yellow Urine Appearance Cloudy A (Clear) Urine pH 5.0 (4.5-7.5) Ur Specific [place] 1.020 (1.000-1.030) Urine Protein 2+ H (Negative) Urine Glucose (UA) Negative (Negative) Urine Ketones Trace H (Negative) Urine Blood 2+ H (Negative) Urine Nitrite Negative (Negative) Urine Bilirubin Negative (Negative) Urine Urobilinogen Negative (Negative) Ur Leukocyte Esterase Trace H (Negative) Urine WBC (Auto) 5-10 H (0-5) /hpf Urine RBC (Auto) 5-10 H (0-4) /hpf U Hyaline Cast (Auto) 5-10 H (0-5) /lpf U Epithel Cells (Auto) >30 H (0-5) /lpf Urine Bacteria (Auto) Negative (Negative) Ur Renal Epithelial Cell Not Reportable Amorphous Sediment Present A (None Prsent) Urine Yeast Present A (None Prsent) Ur Random Sodium mmol/L Influenza Type A Ag Neg for Influ A (Neg) Influenza Type B Ag Neg for Influ B (Neg) 10/02/19 Range/Units 03:28 WBC (4.8-10.8) K/uL RBC (4.2-5.4) M/uL Hgb (12.0-16.0) g/dL Hct (37-47) % MCV (80-100) fL MCH (25-34) pg MCHC (32-36) g/dL RDW Std Deviation (36.4-46.3) fL RDW Coeff of Boris (11.5-14.5) % Plt Count (130-400) K/uL MPV (7.4-10.4) fL Immature Gran % (Auto) % Neut % (Auto) % Lymph % (Auto) % Newton % (Auto) % Eos % (Auto) % Baso % (Auto) % Immature Gran # (Auto) (0.00-0.02) K/uL Neut # (Auto) (1.4-6.5) K/uL Lymph # (Auto) (1.2-3.4) K/uL Newton # (Auto) (0.11-0.59) K/uL Eos # (Auto) (0-0.5) K/uL Baso # (Auto) (0-0.2) K/uL RBC Morphology PT (9.0-12.0) Seconds INR (0.9-1.1) APTT (21.0-31.0) Seconds PTT Ratio Sodium (136-145) mmol/L Potassium (3.5-5.1) mmol/L Chloride (98-107) mmol/L Carbon Dioxide (21-32) mmol/L Anion Gap (3-11) BUN (7-18) mg/dl Creatinine (0.6-1.2) mg/dl Est Cr Clr Drug Dosing Est GFR ( Amer) Est GFR (Non-Af Amer) BUN/Creatinine Ratio (10-20) Glucose (70-99) mg/dl Lactate (0.4-2.0) mmol/L Calcium (8.5-10.1) mg/dl Magnesium (1.8-2.4) mg/dl Total Bilirubin (0.2-1) mg/dl AST (15-37) U/L ALT (12-78) U/L Alkaline Phosphatase (45-117) U/L Troponin I (0-0.045) ng/ml Total Protein (6.4-8.2) gm/dl Albumin (3.4-5.0) gm/dl Globulin (2.5-4.0) gm/dl Albumin/Globulin Ratio (0.9-2) Urine Color Urine Appearance (Clear) Urine pH (4.5-7.5) Ur Specific [place] (1.000-1.030) Urine Protein (Negative) Urine Glucose (UA) (Negative) Urine Ketones (Negative) Urine Blood (Negative) Urine Nitrite (Negative) Urine Bilirubin (Negative) Urine Urobilinogen (Negative) Ur Leukocyte Esterase (Negative) Urine WBC (Auto) (0-5) /hpf Urine RBC (Auto) (0-4) /hpf U Hyaline Cast (Auto) (0-5) /lpf U Epithel Cells (Auto) (0-5) /lpf Urine Bacteria (Auto) (Negative) Ur Renal Epithelial Cell Amorphous Sediment (None Prsent) Urine Yeast (None Prsent) Ur Random Sodium 22 mmol/L Influenza Type A Ag (Neg) Influenza Type B Ag (Neg) Imaging Data Attestation: I personally reviewed and interpreted this imaging study as follows: My Impression: XR chest 1v portable: Prominent perihilar markings, otherwise no focal lung consolidation or failure. Normal mediastinal silhouette. ECG Data Attestation: I personally reviewed and interpreted this ECG as follows: Indication: + tachycardia Rate (beats per minute): 160 Rhythm: + atrial fibrillation (with RVR) ECG ST segments: + repolarization abnormalities ECG Findings: + Q waves (Anterior), + LVH and + Other (Prolonged QT-c 489) Blood Pressure Blood Pressure Findings: Elevated blood pressure Blood Pressure Disposition: Referred to patients primary care provider [facility] Narrative This pt was evaluated and appeared to be in no distress. IV access was obtained and lab work was drawn. Patient is found to be in a rapid atrial fibrillation and noted to be febrile. She had been given 650 mg of p.o. Tylenol prior to departure from the halfway. She was given an additional 325 mg of Tylenol rectally. Blood cultures were obtained. Patient is noted to have a marked leukocytosis and an elevated lactate. Patient has a significant hypernatremia at 157 and hypo-kalemia 3.1. Patient is also noted to have an elevated troponin at 0.197. This is likely demand mediated. IV fluids were initiated. Patient w as given IV Cardizem 10 mg x 2, 1 prehospital. Metoprolol 5 mg IV was administered in the ED. Patient remained in A. fib with RVR. Additional IV Cardizem was administered. Patient had several episodes of hypotension for which she tolerated IV fluids. IV Zosyn, IV vancomycin and IV Levaquin were administered. Chest x-ray appears to be clear to my interpretation. Urinalysis is not convincing for infection. Etiology of the source is unclear at this time. Patient's abdomen was reevaluated and nontender. Patient's case was discussed with the hospitalist, Dr. Cobb who requested additional metoprolol 2.5 mg IV. This medication was administered. For further management by the hospitalist service. Patient and family are aware of the plan and agree. Impression & Plan Atrial fibrillation with RVR, AMS (altered mental status), Fever, Elevated troponin I level, Acute hypernatremia, Sepsis with acute renal failure, tubular necrosis, and septic shock Discharge Plan Visit Data *Final* Discharge Date/Time: 10/02/19 05:28 Chief Complaint: Tachycardia Stated Complaint: SOB, tachycardia ED Provider: Darlene Stover Discharge Problem: Atrial fibrillation with RVR, AMS (altered mental status), Fever, Elevated troponin I level, Acute hypernatremia, Sepsis with acute renal failure, tubular necrosis, and septic shock Patient Disposition: Admitted As Inpatient Discharge Instructions Interventions: ED Discharge Assessment Last Done: 10/02/19 05:28 Sepsis Evaluation Sepsis screening result: Possible Sepsis Risk Current stage of sepsis: severe sepsis Possible source: pulmonary and unknown Focused Exam Date exam was performed: 10/02/19 Time exam was performed: 01:27 Vital Signs Temp Pulse Pulse Resp BP BP Pulse Ox 10/02/19 05:00 122 H 36 H 106/65 98 10/02/19 04:55 122 H 46 H 102/79 98 10/02/19 04:50 119 H 46 H 115/74 97 10/02/19 04:45 127 H 32 H 108/74 98 10/02/19 04:42 130 H 111/82 10/02/19 04:40 135 H 40 H 111/82 98 10/02/19 04:35 133 H 42 H 118/63 97 10/02/19 04:32 123 H 40 H 116/84 97 10/02/19 04:29 126 H 38 H 91/67 L 98 10/02/19 04:20 38.3 C H 117 H 38 H 123/70 98 10/02/19 04:10 130 H 28 H 105/64 97 10/02/19 04:00 136 H 36 H 90/67 L 97 10/02/19 03:51 130 H 38 H 126/73 97 10/02/19 03:40 135 H 140 H 33 H 126/70 126/70 97 10/02/19 03:35 131 H 39 H 124/74 97 10/02/19 03:34 128 H 38 H 118/74 94 10/02/19 03:30 171 H 40 H 116/71 98 10/02/19 03:29 150 H 145/85 H 10/02/19 03:21 97 10/02/19 03:09 39.8 C H 147 H 28 H 145/85 H 98 Reviewed by me. Respiratory exam: Present accessory muscle use, rhonchi and diminished air movement Cardiovascular exam: Present tachycardia and irregularly irregular Capillary refill: 2-3 Seconds (Immediate) Peripheral pulse strength: Weak Peripheral pulse location: Pedal Skin exam: mottling (BLE) Discharge Problem: AMS (altered mental status) Qualifiers: Altered mental status type: unspecified Qualified Code(s): R41.82 - Altered mental status, unspecified Fever Qualifiers: Fever type: unspecified Qualified Code(s): R50.9 - Fever, unspecified Sepsis with acute renal failure, tubular necrosis, and septic shock Qualifiers: Sepsis type: sepsis due to unspecified organism Qualified Code(s): A41.9 - Sepsis, unspecified organism The scribe's documentation has been prepared under my direction and personally reviewed by me in its entirety. I confirm that the note above accurately reflects all work, treatment, procedures, and medical decision making performed by me.
[2019-10-02] MEDS ORDERED: PHENYLEPHRINE HCL 20 MG in DEXTROSE 5% 500 ML IV SCH (05:56)
[2019-10-02] MEDS ORDERED: DEXTROSE 5% 1,000 ML IV SCH ×3 (06:00→08:45)
[2019-10-02] MEDS ORDERED: PIPERACILL/TAZOBAC CONSULT ACTIVE PRN (06:03)
[2019-10-02] MEDS ORDERED: ICU PROTOCOL FOR HYPERGLYCEMIA PRN (06:03)
[2019-10-02] MEDS ORDERED: POTASSIUM CHLORIDE / WTR 10 MEQ/100 ML PLCT IV SCH ×2 (06:03→08:15)
[2019-10-02] MEDS ORDERED: POTASSIUM CHLORIDE / WTR 10 MEQ/100 ML PLCT IV ONE (06:10)
[2019-10-02] MEDS ORDERED: PATIENT'S HEIGHT AND/OR WEIGHT NEEDED SCH (06:30)
[2019-10-02 06:34] LABS: iSTAT Allen Test Pass; iSTAT Arterial Blood Gas HCO3 17 meg/L (19-24); iSTAT Arterial Blood Gas pCO2 31 mmHg (35-46); iSTAT Arterial Blood Gas pH 7.35 (7.35-7.45); iSTAT Arterial Blood Gas pO2 65 mmHg (80-95); iSTAT Carbon Dioxide 18 mEq/l (24-31); iSTAT Site L Radial
[2019-10-02] MEDS ORDERED: LEVOFLOXACIN CONSULT ACTIVE PRN (06:34)
--- NOTE | 2019-10-02 06:41 | XRay Report ---
XR chest 1V portable CLINICAL HISTORY: fever COMPARISON STUDY: Chest radiograph August 17, 2017. FINDINGS: Lung volumes are normal. Small bilateral pneumothoraces are noted. Mild left basilar opacit y favors atelectasis. There is no consolidation to suggest pneumonia. There is stable cardiomegaly. IMPRESSION: Equivocal small biapical pneumothoraces. The findings may reflect skinfolds or small pne umothoraces. Inspiration and expiration chest radiographs are recommended. ACT 112: Negative or not required by law. Electronically signed by: Mahin Moralez M.D. 10/02/2019 6:39 AM
--- NOTE | 2019-10-02 06:47 | Critical Care Consultation ---
Date of Consultation October 02, 2019 Assessment & Plan (1) Atrial fibrillation with RVR: Reason Critically Ill: 89-year-old female presents from half-way with A. fib RVR, hypernatremia, acute hypoxic respiratory failure Neuro - Altered mental status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, vascular disease, prior CVA in the setting of UTI/sepsis -Patient functionally nonverbal at baseline -Ammonia within normal limits, CO2 30 -CT head negative for acute process -BUN mildly elevated -Frequent neuro exams, monitor Cardiac - A. fib RVRpatient with history of PAF -Given IV metoprolol with improvement in rate and hemodynamics -Patient n.p.o., will transition oral metoprolol to IV -Patient on Xarelto, will continue -will replete potassium and volume status -Monitor on telemetry -Consider IV Cardizem drip if remains uncontrolled Respiratory - Acute hypoxic respiratory failurelikely secondary to aspiration pneumonia -CXR showed right basilar opacity consistent with pneumonia versus atelectasis -No history COPD or asthma -AB.35/31/65/17 on 4 L nasal cannula -See antibiotic regimen below -Patient tachypneic with low threshold for intubation, will discuss with family concerning CODE STATUS -PRN DuoNeb -Continuous to monitor oxygen saturations GI - N.p.o. Abdominal tendernessright lower quadrant tenderness with deep palpation -LFTs within normal limits -We will consider CT abdomen when patient stable to rule out diverticulitis, appendicitis -Zosyn added to antibiotic regimen, see below RENAL/LYTES - Acute on chronic kidney diseasebaseline creatinine 1.5 on prior admissions, 2.8 on this admission -Likely somewhat contributed to euvolemic status, will proceed with volume repletion -We will trend creatinine -Strict I's and O's -Avoid nephrotoxins Hypernatremiapatient euvolemic and bolused with 1 L NS in ED, will give additional 1 L NS and reassess -will follow with D5W with 24-hour goal to reduce sodium by 10 mEq from initial 157 -Every 4 hour BMPs -Strict I's and O's -Urine osmole and sodium pending Hypokalemiacontinue to replete with caution considering HOWIE -Monitor with routine BMPs - Iniguez insertedstrict I's and O's ENDO - No history diabetes, hemoglobin A1c 5.8 on prior admission No history of thyroid disease HEME - H&H stable, monitor routine CBCs ID - Sepsispatient febrile with leukocytosis and elevated lactate -Pulmonary or urine source likely, cannot rule out abdominal source at this time -Patient diagnosed 3 days ago with aspiration pneumonia and did 3 days of azithromycin -Received Levaquin and Vanco in ED, broadened to add Zosyn to cover Pseudomonas -Blood cultures and urine cultures pending LINES/IV ACCESS - Peripheral IVs DVT PROPHYLAXIS - SCDs, patient on Xarelto I have personally spent 50 minutes of critical care time in the direct management of this patient. This is a life/limb threatening event. This includes time spent evaluating patient, direct bedside care, chart review, placing orders, interpretation of diagnostic studies, discussion with consultants, patient, and family members, as well as other required patient management activities. This time is exclusive of all separately billable procedures, and teaching time and separate from and in addition to any other critical care service time. Thank you for allowing us to participate in the care of this patient. Please refer to my attending physician's documentation for any further recommendations. (2) Alzheimer's dementia: (3) Vascular dementia: (4) Svdkr-id-dtnluvn kidney injury: (5) Hypokalemia: (6) Hypoxia: (7) Hypernatremia: (8) Sepsis: (9) Elevated troponin I level: Supervising Physician Co-Signing Physician Notes I saw and evaluated the patient with Hector Vo, and agree with findings and plan as documented in the note. Patient seen and examined at bedside. Patient is in respiratory distress with A. fib with RVR. Borderline hypotension which is responding to fluids. Patient has sodium of 157 with free water deficit total of 2.8 L. Goal correction of sodium in 24 hours is 147 which is around 1.8 L free water to be given. Will give D5 water at 75/h BMP every 4 hours. The source of sepsis most likely is aspiration pneumonia with possible diverticulitis/appendicitis. Patient is too unstable to be sent for CT of the abdomen. Continue with vancomycin Zosyn and doxycycline. Renally dose vancom ycin and Zosyn. Patient has normal anion gap metabolic acidosis looking at the urine lites seems to be RTA. Patient is too altered to be given anything by mouth. We will keep the patient n.p.o. For A. fib with RVR for which she is supposed to take rivaroxaban we will start the patient on heparin drip instead that she is able to take anything by mouth. Continue with D5 water and insulin sliding scale. Mild elevation of troponin likely secondary to demand ischemia. EKG shows T wave depressions in the lateral leads which is unchanged from a EKG done on 06/22/2018. No ST changes appreciated. Patient has prolonged QTC avoid QTC prolonging medication. Call was made to patient's daughter which is the primary contact. She called back and spoke with resident Dr. Starkey. As per the family it is okay to intubate the patient if need be. Given the respiratory distress the patient has the likelihood of she being intubated is high if there is no improvement in the respiratory rate as it could lead to impending respiratory failure. Patient is critically ill, looking at underlying comorbidities prognosis is guarded. I have spent more than 50% of this 65 minute encounter in counseling and/or coordination of care with patient. History of Present Illness Attending Physician: Fredo Medina MD History of Present Illness Patient is a 89-year-old female from [facility] with past medical history of Alzheimer's and vascular dementia, HTN, HLD, PAF, CVA, breast adenocarcinoma who recently was diagnosed with aspiration pneumonia and was placed on azithromycin 3 days ago. She continued to have fevers and worsening shortness of breath. She was brought into the emergency department and was found to be hypoxic and in A. fib RVR. Patient was treated with bolus, Cardizem, and IV MTP in the ED. She is also found to be hypernatremic with calculated FWD 2.5 L. Lactate and troponin were elevated as well. Patient also has a acute kidney injury. Cultures collected and patient was started on vancomycin and Levaquin. She is currently on 4 L nasal cannula and maintaining sats. Patient is functionally nonverbal at baseline. Patient to remain in ICU for further management at this point. Allergies Allergy/AdvReac Type Severity Reaction Status Date / Time morphine AdvReac Unknown hallucinati Verified 10/02/19 03:50 ons Home Medications Home Medications Medication Instructions Recorded Confirmed Type Combivent Respimat 20 - 100 mcg INHALATION Q6H PRN 06/18/18 10/02/19 History Xarelto 15 mg PO DAILY 06/18/18 10/02/19 History acetaminophen [Tylenol] 650 mg PO Q6H PRN 06/18/18 10/02/19 History amlodipine [Norvasc] 10 mg PO DAILY 06/18/18 10/02/19 History aspirin [Aspirin Childrens] 81 mg PO DAILY 06/18/18 10/02/19 History atorvastatin [Lipitor] 20 mg PO DAILY 06/18/18 10/02/19 History metoprolol tartrate 12.5 mg PO BID 06/18/18 10/02/19 History lorazepam 0.25 mg PO Q8 08/16/18 10/02/19 History azithromycin 250 mg PO DAILY 10/02/19 10/02/19 History hydrocortisone 2.5 % RI Q8 PRN 10/02/19 10/02/19 History ipratropium-albuterol 3 ml INHALATION Q4 PRN 10/02/19 10/02/19 History latanoprost 1 drp OPB DAILY 10/02/19 10/02/19 History menthol-zinc oxide [Calmoseptine] 1 applic TOPICAL QS 10/02/19 10/02/19 History venlafaxine 150 mg PO DAILY 10/02/19 10/02/19 History Patient History Medical History Acute encephalopathy H/0 Acute kidney injury H/0 Altered mental status Atrial fibrillation Chronic back pain CVA (cerebral vascular accident) Dysphagia History of fall History of fracture of left hip History of fracture of right hip Hyperlexia (Chronic) Hyperlipidemia Hypertension (Chronic) Iron deficiency anemia Osteoporosis Osteoporosis Rhabdomyolysis H/O Surgical History History of cataract surgery LEFT History of hip surgery LEFT Family History (Updated 10/02/19 @ 03:47 by Tito Martinez) Other Family history non-contributory Social History Preferred Language: Korean Communication Ability: Effective Hand Button Splitter Required: No Beliefs That Will Affect Care: None Current Living Situation: [facility] Current Living Situation Comment: [facility] Feels Safe at Home: Yes Smoking Status: Former smoker Tobacco Type: cigarettes ; Tobacco Cessation Education Requested by Patient: No Hx Alcohol Use: No Hx Substance Use: No Review of Systems Review of Systems: Unobtainable due to cognitive status Physical Exam Eyes: PERRL, conjunctivae normal, anicteric sclerae ENMT: external ear and nose normal, oropharynx normal Neck: trachea midline, no thyromegaly Respiratory: Lungs coarse bilaterally in all alva upon auscultation, symmetrical chest wall movement, patient is tachypneic Cardiovascular: Rate/Rhythm: + tachycardic and + irregularly irregular Vessels: no JVD Extremities: no edema Gastrointestinal (Abdomen): Nondistended, normal bowel sounds, right lower quadrant tender with deep palpation Skin: no rashes, warm and dry + turgor decreased Neurologic: Dysarthria Psychiatric: Unable to assess Genitourinary: Indwelling Iniguez present Results & Data Vital Signs (Past 12 Hours) Vital Signs Temp Pulse Pulse Pulse Resp BP BP 10/02/19 06:06 130 H 117/73 10/02/19 06:04 37.8 C H 126 H 31 H 117/73 10/02/19 06:03 10/02/19 05:10 129 H 36 H 107/86 10/02/19 05:00 122 H 36 H 106/65 10/02/19 04:55 122 H 46 H 102/79 10/02/19 04:50 119 H 46 H 115/74 10/02/19 04:45 127 H 32 H 108/74 10/02/19 04:42 130 H 111/82 10/02/19 04:40 135 H 40 H 111/82 10/02/19 04:35 133 H 42 H 118/63 10/02/19 04:32 123 H 40 H 116/84 10/02/19 04:29 126 H 38 H 91/67 L 10/02/19 04:20 38.3 C H 117 H 38 H 123/70 10/02/19 04:10 130 H 28 H 105/64 10/02/19 04:00 136 H 36 H 90/67 L 10/02/19 03:51 130 H 38 H 126/73 10/02/19 03:40 135 H 140 H 33 H 126/70 126/70 10/02/19 03:35 131 H 39 H 124/74 10/02/19 03:34 128 H 38 H 118/74 10/02/19 03:30 171 H 40 H 116/71 10/02/19 03:29 150 H 145/85 H 10/02/19 03:21 10/02/19 03:09 39.8 C H 147 H 28 H 145/85 H Pulse Ox Pulse Ox 10/02/19 06:06 10/02/19 06:04 93 10/02/19 06:03 93 10/02/19 05:10 97 10/02/19 05:00 98 10/02/19 04:55 98 10/02/19 04:50 97 10/02/19 04:45 98 10/02/19 04:42 10/02/19 04:40 98 10/02/19 04:35 97 10/02/19 04:32 97 10/02/19 04:29 98 10/02/19 04:20 98 10/02/19 04:10 97 10/02/19 04:00 97 10/02/19 03:51 97 10/02/19 03:40 97 10/02/19 03:35 97 10/02/19 03:34 94 10/02/19 03:30 98 10/02/19 03:29 10/02/19 03:21 97 10/02/19 03:09 98 Diagnostic Findings Laboratory Results - last 24 hr 10/02/19 10/02/19 10/02/19 03:22 03:22 03:22 WBC 24.87 H RBC 3.72 L Hgb 10.5 L Hct 33.3 L MCV 89.5 MCH 28.2 MCHC 31.5 L RDW Std Deviation 49.4 H RDW Coeff of Boris 15.3 H Plt Count 432 H MPV 9.1 Immature Gran % (Auto) 2.3 Neut % (Auto) 86.8 Lymph % (Auto) 3.3 Madison % (Auto) 7.4 Eos % (Auto) 0.0 Baso % (Auto) 0.2 Immature Gran # (Auto) 0.56 H Neut # (Auto) 21.59 H Lymph # (Auto) 0.82 L Madison # (Auto) 1.85 H Eos # (Auto) 0.00 Baso # (Auto) 0.05 RBC Morphology Unremarkable PT INR APTT PTT Ratio Sample Site POC pH POC pCO2 POC pO2 POC HCO3 POC Total CO2 POC Base Excess POC ABG O2 Sat Robinson Test O2 Delivery Device Sodium 157 H* Potassium 3.1 L Chloride 129 H Carbon Dioxide 20 L Anion Gap 8.0 BUN 61 H Creatinine 2.81 H Est Cr Clr Drug Dosing Not Reportable Est GFR ( Amer) 16.6 Est GFR (Non-Af Amer) 14.3 BUN/Creatinine Ratio 21.8 H Glucose 142 H Osmolality Lactate 2.4 H* Calcium 8.4 L Magnesium 2.4 Total Bilirubin 0.3 AST 18 ALT 18 Alkaline Phosphatase 98 Troponin I 0.197 H* Total Protein 7.0 Albumin 2.4 L Globulin 4.6 H Albumin/Globulin Ratio 0.5 L Urine Color Urine Appearance Urine pH Ur Specific [place] Urine Protein Urine Glucose (UA) Urine Ketones Urine Blood Urine Nitrite Urine Bilirubin Urine Urobilinogen Ur Leukocyte Esterase Urine WBC (Auto) Urine RBC (Auto) U Hyaline Cast (Auto) U Epithel Cells (Auto) Urine Bacteria (Auto) Ur Renal Epithelial Cell Amorphous Sediment Urine Yeast Ur Random Sodium Nasal Screen MRSA (PCR) Influenza Type A Ag Influenza Type B Ag 10/02/19 10/02/19 10/02/19 03:22 03:24 03:28 WBC RBC Hgb Hct MCV MCH MCHC RDW Std Deviation RDW Coeff of Boris Plt Count MPV Immature Gran % (Auto) Neut % (Auto) Lymph % (Auto) Madison % (Auto) Eos % (Auto) Baso % (Auto) Immature Gran # (Auto) Neut # (Auto) Lymph # (Auto) Madison # (Auto) Eos # (Auto) Baso # (Auto) RBC Morphology PT 14.6 H INR 1.5 H APTT 28.2 PTT Ratio 1.0 Sample Site POC pH POC pCO2 POC pO2 POC HCO3 POC Total CO2 POC Base Excess POC ABG O2 Sat Robinson Test O2 Delivery Device Sodium Potassium Chloride Carbon Dioxide Anion Gap BUN Creatinine Est Cr Clr Drug Dosing Est GFR ( Amer) Est GFR (Non-Af Amer) BUN/Creatinine Ratio Glucose Osmolality Lactate Calcium Magnesium Total Bilirubin AST ALT Alkaline Phosphatase Troponin I Total Protein Albumin Globulin Albumin/Globulin Ratio Urine Color Yellow Urine Appearance Cloudy A Urine pH 5.0 Ur Specific [place] 1.020 Urine Protein 2+ H Urine Glucose (UA) Negative Urine Ketones Trace H Urine Blood 2+ H Urine Nitrite Negative Urine Bilirubin Negative Urine Urobilinogen Negative Ur Leukocyte Esterase Trace H Urine WBC (Auto) 5-10 H Urine RBC (Auto) 5-10 H U Hyaline Cast (Auto) 5-10 H U Epithel Cells (Auto) >30 H Urine Bacteria (Auto) Negative Ur Renal Epithelial Cell Not Reportable Amorphous Sediment Present A Urine Yeast Present A Ur Random Sodium Nasal Screen MRSA (PCR) Influenza Type A Ag Neg for Influ A Influenza Type B Ag Neg for Influ B 10/02/19 10/02/19 10/02/19 03:28 05:27 05:27 WBC RBC Hgb Hct MCV MCH MCHC RDW Std Deviation RDW Coeff of Boris Plt Count MPV Immature Gran % (Auto) Neut % (Auto) Lymph % (Auto) Madison % (Auto) Eos % (Auto) Baso % (Auto) Immature Gran # (Auto) Neut # (Auto) Lymph # (Auto) Madison # (Auto) Eos # (Auto) Baso # (Auto) RBC Morphology PT INR APTT PTT Ratio Sample Site POC pH POC pCO2 POC pO2 POC HCO3 POC Total CO2 POC Base Excess POC ABG O2 Sat Robinson Test O2 Delivery Device Sodium Potassium Chloride Carbon Dioxide Anion Gap BUN Creatinine Est Cr Clr Drug Dosing Est GFR ( Amer) Est GFR (Non-Af Amer) BUN/Creatinine Ratio Glucose Osmolality 346 H Lactate 1.8 Calcium Magnesium Total Bilirubin AST ALT Alkaline Phosphatase Troponin I Total Protein Albumin Globulin Albumin/Globulin Ratio Urine Color Urine Appearance Urine pH Ur Specific [place] Urine Protein Urine Glucose (UA) Urine Ketones Urine Blood Urine Nitrite Urine Bilirubin Urine Urobilinogen Ur Leukocyte Esterase Urine WBC (Auto) Urine RBC (Auto) U Hyaline Cast (Auto) U Epithel Cells (Auto) Urine Bacteria (Auto) Ur Renal Epithelial Cell Amorphous Sediment Urine Yeast Ur Random Sodium 22 Nasal Screen MRSA (PCR) Influenza Type A Ag Influenza Type B Ag 10/02/19 10/02/19 06:10 06:20 WBC RBC Hgb Hct MCV MCH MCHC RDW Std Deviation RDW Coeff of Boris Plt Count MPV Immature Gran % (Auto) Neut % (Auto) Lymph % (Auto) Madison % (Auto) Eos % (Auto) Baso % (Auto) Immature Gran # (Auto) Neut # (Auto) Lymph # (Auto) [place] # (Auto) Eos # (Auto) Baso # (Auto) RBC Morphology PT INR APTT PTT Ratio Sample Site L Radial POC pH 7.35 POC pCO2 31 L POC pO2 65 L POC HCO3 17 L POC Total CO2 18 L POC Base Excess -8.0 POC ABG O2 Sat 92.0 Robinson Test Pass O2 Delivery Device Cannula Sodium Potassium Chloride Carbon Dioxide Anion Gap BUN Creatinine Est Cr Clr Drug Dosing Est GFR ( Amer) Est GFR (Non-Af Amer) BUN/Creatinine Ratio Glucose Osmolality Lactate Calcium Magnesium Total Bilirubin AST ALT Alkaline Phosphatase Troponin I Total Protein Albumin Globulin Albumin/Globulin Ratio Urine Color Urine Appearance Urine pH Ur Specific [place] Urine Protein Urine Glucose (UA) Urine Ketones Urine Blood Urine Nitrite Urine Bilirubin Urine Urobilinogen Ur Leukocyte Esterase Urine WBC (Auto) Urine RBC (Auto) U Hyaline Cast (Auto) U Epithel Cells (Auto) Urine Bacteria (Auto) Ur Renal Epithelial Cell Amorphous Sediment Urine Yeast Ur Random Sodium Nasal Screen MRSA (PCR) Pending Influenza Type A Ag Influenza Type B Ag Medications Administered Home Medications Combivent Respimat 20 - 100 mcg INHALATION Q6H PRN 06/18/18 [History Confirmed 10/02/19] Xarelto 15 mg PO DAILY 06/18/18 [History Confirmed 10/02/19] acetaminophen [Tylenol] 650 mg PO Q6H PRN 06/18/18 [History Confirmed 10/02/19] amlodipine [Norvasc] 10 mg PO DAILY 06/18/18 [History Confirmed 10/02/19] aspirin [Aspirin Childrens] 81 mg PO DAILY 06/18/18 [History Confirmed 10/02/19] atorvastatin [Lipitor] 20 mg PO DAILY 06/18/18 [History Confirmed 10/02/19] metoprolol tartrate 12.5 mg PO BID 06/18/18 [History Confirmed 10/02/19] lorazepam 0.25 mg PO Q8 08/16/18 [History Confirmed 10/02/19] azithromycin 250 mg PO DAILY 10/02/19 [History Confirmed 10/02/19] hydrocortisone 2.5 % RI Q8 PRN 10/02/19 [History Confirmed 10/02/19] ipratropium-albuterol 3 ml INHALATION Q4 PRN 10/02/19 [History Confirmed 10/02/19] latanoprost 1 drp OPB DAILY 10/02/19 [History Confirmed 10/02/19] menthol-zinc oxide [Calmoseptine] 1 applic TOPICAL QS 10/02/19 [History Confirmed 10/02/19] venlafaxine 150 mg PO DAILY 10/02/19 [History Confirmed 10/02/19] Active Medications Aspirin (Aspirin Chew) 81 mg PO DAILY [facility] Stop: 11/01/19 08:59 Levofloxacin/Dextrose (Levaquin/D5w) 750 mg in 150 mls @ 100 mls/hr IV Q24H [facility]ISA Stop: 10/02/20 06:30 Last Infusion: 10/02/19 04:54 Dose: Infused Documented by: Albumin Human (Albumin 25%) 50 mls @ 50 mls/hr IV Q1H [facility]ISA Stop: 10/02/19 06:59 Last Admin: 10/02/19 06:05 Dose: 50 mls/hr Documented by: Dextrose (D5w) 1,000 mls @ 65 mls/hr IV .[id number] [facility] Stop: 11/01/19 05:59 Last Admin: 10/02/19 06:07 Dose: 75 mls/hr Documented by: Phenylephrine HCl 20 mg/ (Dextrose) 502 mls @ 36.671 mls/hr IV .[id number] [facility]; Protocol Stop: 11/01/19 05:55 Levofloxacin/Dextrose (Levaquin/D5w) 500 mg in 100 mls @ 100 mls/hr IV Q48H [facility] Stop: 10/04/19 04:59 Potassium Chloride (K Florin / Wtr) 10 meq in 100 mls @ 100 mls/hr IV ONE ONE Stop: 10/02/19 07:09 Piperacillin Sod/Tazobactam (Sod 4.5 gm/ Dextrose) 120 mls @ 30 mls/hr IV Q12H [facility]; Protocol Stop: 10/04/19 11:59 Latanoprost (Xalatan Oph) 1 drops OPB HS [facility] Stop: 11/01/19 20:59 Miscellaneous (Icu Protocol For Hyperglycemia) 1 ea N/A PRN PRN; Protocol PRN Reason: Hyperglycemia Protocol Stop: 10/04/19 06:02 Miscellaneous Information (Consult) 1 ea N/A UD PRN PRN Reason: Consult Stop: 11/01/19 03:15 Miscellaneous Information (Consult) 1 ea N/A UD PRN PRN Reason: Consult Stop: 11/01/19 06:02 Miscellaneous Information (Consult) 1 ea N/A UD PRN PRN Reason: Consult Stop: 11/01/19 06:33 Rivaroxaban (Xarelto) 15 mg PO DAILY [facility] Stop: 11/01/19 08:59 Venlafaxine HCl (Effexor Extended Release) 150 mg PO DAILY [facility] Stop: 11/01/19 08:59 Coding Level of Care Code Critical Care 1st 30-74 mins Diagnoses Atrial fibrillation with RVR I48.91 Alzheimer's dementia G30.9; F02.80 Vascular dementia F01.50 [id number] kidney injury N17.9; N18.9 Hypokalemia E87.6 Hypoxia R09.02 Hypernatremia E87.0 Sepsis A41.9 Elevated troponin I level R79.89 Time Spent (min) 65
[2019-10-02] MEDS ORDERED: SODIUM CHLORIDE 0.9% 1000ML 1,000 ML IV ONE (07:01)
--- NOTE | 2019-10-02 07:04 | XRay Report ---
XR chest 1V portable HISTORY: 89 years-old Female SOB acute shortness of breath COMPARISON: Chest radiograph 10/02/2019 TECHNIQUE: Portable AP view of the chest FINDINGS: Cardiac silhouette is mildly enlarged, unchanged. Calcified plaque of the thoracic aortic arch. Mild bilateral interstitial coarsening persists. No overt pulmonary edema. New ill-defined bibasilar airsp john opacities. Subtle lucencies projecting over the bilateral lung apices redemonstrated. Degenerativ e changes of the shoulders and spine. Mild thoracic aortic tortuosity. IMPRESSION: e 1. Mild cardiomegaly without overt pulmonary edema. 2. Subtle lucencies projecting over the bilateral lung apices redemonstrated suggestive of skin folds versus tiny pneumothoraces. 3. Ill-defined right basilar opacity suggests atelectasis versus developing pneumonia. ACT 112: Negative or not required by law. The above report was generated using voice recognition software. It may contain grammatical, syntax o r spelling errors. Electronically signed by: Carlos Lara M.D. 10/02/2019 7:02 AM
--- NOTE | 2019-10-02 07:27 | Communication Note ---
Date of Service: October 02, 2019 POCUS: Good ejection fraction, hyperdynamic heart, RVOT normal in size, irregular rhythm, biatrial enlargement, no pericardial effusion. Lungs: B-lines appreciated anteriorly and posteriorly on the right side, B-lines on the left lower side. No pleural effusion bilaterally Abdomen: No free fluid appreciated, no gallstone appreciated in the gallbladder, minimally thickened gallbladder wall. We will get official right upper quadrant ultrasound. Please look at the images separately.
[2019-10-02] MEDS ORDERED: ALBUT/IPRATROP 3MG/0.5MG NEB 3 ML VIAL NEB PRN (07:43)
[2019-10-02] MEDS ORDERED: POTASSIUM CHLORIDE / WTR 10 MEQ/100 ML PLCT IV STA (07:45)
[2019-10-02] MEDS: ASPIRIN 81 MG CHEW PO SCH (07:52)
[2019-10-02] MEDS: VENLAFAXINE HCL XR 150 MG CAPXR PO SCH (07:52)
[2019-10-02 08:15] LABS: BUN Creatinine Ratio 25.4 (10-20); Calcium 7.5 mg/dl (8.5-10.1); Creatinine Clr Calc Pharmacy 11.5 ml/min; Est GFR (African American) 20.3; Est GFR (Non-African American) 17.5; Troponin I 0.174 ng/ml (0-0.045)
[2019-10-02] MEDS ORDERED: SODIUM CHLORIDE 0.9% 1000ML 500 ML IV ONE (08:28)
[2019-10-02] MEDS ORDERED: GLUCAGON FOR INJ 1 MG VIAL IM PRN (08:45)
[2019-10-02] MEDS ORDERED: CARBOHYDRATES FOR HYPOGLYCEMIA PO PRN (08:45)
[2019-10-02] MEDS ORDERED: DEXTROSE 50% 50 ML SYRINGE IV PRN (08:45)
[2019-10-02] MEDS ORDERED: GLUCOSE 40% GEL 15 GM TUBE PO PRN (08:45)
[2019-10-02] MEDS ORDERED: GLUCOSE 10 TABS/TUBE PO PRN (08:45)
[2019-10-02] MEDS ORDERED: RIVAROXABAN 15 MG TAB PO SCH (09:00)
[2019-10-02] MEDS ORDERED: VANCOMYCIN HCL 500 MG in SODIUM CHLORIDE 0.9% 250 ML IV SCH (09:00)
[2019-10-02] MEDS: INSULIN ASPART 100 UNITS/ML 3 ML PEN SC SCH ×3 (09:08→17:30)
[2019-10-02] MEDS ORDERED: PIPERACILLIN/TAZOBACTAM 2.25 GM in DEXTROSE 5% 100 ML IV SCH (10:00)
[2019-10-02 10:13] LABS: Urine Potassium 71.1 mmol/L
[2019-10-02] MEDS ORDERED: HEPARIN SODIUM/DEXTROSE 25,000 UNITS/500 ML BAG IV SCH ×3 (10:30→11:15)
[2019-10-02] MEDS ORDERED: Heparin IV Low Dose *NO* Bolus IV ONE (10:47)
[2019-10-02] MEDS ORDERED: Heparin IV Low Dose WITH Bolus STA (11:08)
[2019-10-02 11:25] LABS: Partial Thromboplastin Ratio 1.2; Partial Thromboplastin Time 31.9 Seconds (21.0-31.0)
[2019-10-02 11:44] LABS: Calcium 7.1 mg/dl (8.5-10.1); Creatinine Clr Calc Pharmacy 11.7 ml/min; Est GFR (African American) 20.6; Est GFR (Non-African American) 17.8; Potassium 3.9 mmol/L (3.5-5.1)
[2019-10-02] MEDS: DOXYCYCLINE HYCLATE 100 MG in DEXTROSE 5% 100 ML IV SCH (11:45)
[2019-10-02 11:55] LABS: Beta-Hydroxybutyrate 0.69 mg/dl (0.2-2.81)
--- NOTE | 2019-10-02 13:05 | Pharmacy Report ---
Pharmacy Abx Dose Short Note - Date of Service October 02, 2019 - Assessment & Plan Assessment 89 year old F receiving vancomycin/zosyn and doxycycline empirically. MRSA nasal swab negative. Patients renal function poor with an admitting scr of 2.81. This has improved somewhat through the day thus far. Patient received a 25mg/kg load this morning which will likely be sufficient until tomorrow. I will order a random level for tomorrow morning to assess need for redosing. Day # 1 of antimicrobial therapy. Plan Vancomycin * Loading dose of 1250mg IV X 1 * Trough or random level ordered for: 10/03/19 with AM labs Pharmacy will continue to follow and will adjust dose/frequency as necessary. Thank you.
--- NOTE | 2019-10-02 13:17 | Hospitalist Progress Note ---
Date of Service October 02, 2019 Assessment & Plan (1) Atrial fibrillation with RVR: 89-year-old female was admitted on 02 October 2019 for tachycardia, hypernatremia, dehydration, acute on chronic kidney injury, and possible ongoing aspiration pneumonia. Patient is relatively nonverbal at baseline and is noncontributory to history. A. fib RVR: - patient with history of PAF - Given IV metoprolol with improvement in rate and hemodynamics; given patient is n.p.o., will transition oral metoprolol to IV - Patient on Xarelto, will continue - Monitor on telemetry: consider IV Cardizem drip if remains uncontrolled Sepsis: - patient febrile with leukocytosis and elevated lactate - Pulmonary or urine source likely, cannot rule out abdominal source at this time - Patient diagnosed 3 days ago with aspiration pneumonia and did 3 days of azithromycin - Received Levaquin and Vanco in ED; Zosyn added to cover Pseudomonas - Blood cultures and urine cultures pending Altered mental status: - 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, vascular disease, prior CVA in the setting of UTI/sepsis - Patient functionally nonverbal at baseline - Ammonia within normal limits, CO2 30 - CT head negative for acute process - BUN mildly elevated - Frequent neuro exams, monitor Acute hypoxic respiratory failure: - likely secondary to aspiration pneumonia - CXR showed right basilar opacity consistent with pneumonia versus atelectasis - No history COPD or asthma - AB.35/31/65/17 on 4 L nasal cannula - See antibiotic regimen below - Patient tachypneic with low threshold for intubation, will discuss with family concerning CODE STATUS - PRN DuoNeb - Infleunza PCR negative - Continuous to monitor oxygen saturations Abdominal tenderness: - right lower quadrant tenderness with deep palpation - consider CT abdomen when patient stable to rule out diverticulitis, appendicitis - Zosyn added to antibiotic regimen Acute on chronic kidney disease: - baseline creatinine 1.5 on prior admissions, 2.8 on this admission - continue hydration - Strict I's and O's - Avoid nephrotoxins Hypernatremia/Hypokalemia: - patient euvolemic and bolused with 1 L NS in ED, will give additional 1 L NS and reassess - will follow with D5W with 24-hour goal to reduce sodium by 10 mEq from initial 157 - Every 4 hour BMPs - Urine osmole and sodium pending Code status: Full code. Diet: NPO except meds. DVT prophy: Xarelto. Disbo: Critically ill. At baseline is resident of [facility]. (2) Sepsis: (3) Hypernatremia: (4) Hypoxia: (5) Anemia: (6) Elevated INR: (7) Hypokalemia: (8) [id number] kidney injury: (9) Hypertension: (10) HLD (hyperlipidemia): (11) Alzheimer's dementia: (12) Vascular dementia: Supervising Physician Co-Signing Physician Notes Resident Physician Supervision Note: I interviewed and examined the patient. Discussed with Dr. Gilbert Zarate and agree with findings and plan as documented in the note. Any exceptions or clarifications are listed here: none. Critically ill 89yo female with dementia who presented with rapid a.fib, acute hypoxic resp failure, severe sepsis with borderline septic shock, hypernatremic dehydration, acute kidney injury. Acute hypoxic resp failure likely 2nd to pneumonia. During my bedside rounds was altered and quite tachypneic. Unable to answer questions. Exam - gen - increased WOB, altered mouth - MM dry heart - irregular, s1 s2 lungs - course BS b/l, decreased BS right base, tachypnea, increased WOB abd - mildly distended, BS+ ext - no edema A/P: 1. acute hypoxic resp failure 2. pneumonia, likely aspiration 3. hypernatremic dehydration 4. severe sepsis 5. dementia 6. metabolic encephalopathy 7. rapid a.fib 8. acute kidney injury in setting of CKD stage 3 check flu PCR cont IV abx cont IV steroids may need intubation/mech ventilation due to ongoing resp distress Documented By: Russel Baca MD Subjective Patient is in the ICU and remains largely non-verbal but does follow some simple commands. Continues to have a tremendous work of breathing, family has expressed desire for patient to remain full code at this time. Review of Systems Review of Systems: Unobtainable due to cognitive status Physical Exam Constitutional: + ill appearing and + frail appearing Eyes: PERRL, conjunctivae normal, anicteric sclerae Respiratory: + respiratory distress and + labored breathing; no retractions Auscultation: + crackles and + wheezes Cardiovascular: Rate/Rhythm: + tachycardic; + abnormal rhythm Gastrointestinal (Abdomen): normal bowel sounds, soft, nontender, no hepatosplenomegaly Skin: no rashes, warm and dry Psychiatric: Orientation: alert Apperance: + disheveled Eye Contact: good eye contact Speech: + mute Results & Data Vital Signs (Past 12 Hours) Vital Signs Temp Pulse Pulse Pulse Resp BP BP 10/02/19 12:00 75 31 H 133/70 10/02/19 11:30 80 48 H 128/65 10/02/19 11:00 89 34 H 139/68 10/02/19 10:30 89 38 H 137/69 10/02/19 10:00 87 40 H 136/80 10/02/19 09:30 127 H 38 H 121/89 10/02/19 09:00 134 H 37 H 112/73 10/02/19 08:30 139 H 45 H 110/78 10/02/19 08:00 131 H 49 H 131/84 10/02/19 07:30 126 H 32 H 111/70 10/02/19 07:00 126 H 45 H 120/67 10/02/19 06:06 130 H 117/73 10/02/19 06:04 37.8 C H 126 H 31 H 117/73 10/02/19 06:03 10/02/19 05:10 129 H 36 H 107/86 10/02/19 05:00 122 H 36 H 106/65 10/02/19 04:55 122 H 46 H 102/79 10/02/19 04:50 119 H 46 H 115/74 10/02/19 04:45 127 H 32 H 108/74 10/02/19 04:42 130 H 111/82 10/02/19 04:40 135 H 40 H 111/82 10/02/19 04:35 133 H 42 H 118/63 10/02/19 04:32 123 H 40 H 116/84 10/02/19 04:29 126 H 38 H 91/67 L 10/02/19 04:20 38.3 C H 117 H 38 H 123/70 10/02/19 04:10 130 H 28 H 105/64 10/02/19 04:00 136 H 36 H 90/67 L 10/02/19 03:51 130 H 38 H 126/73 10/02/19 03:40 135 H 140 H 33 H 126/70 126/70 10/02/19 03:35 131 H 39 H 124/74 10/02/19 03:34 128 H 38 H 118/74 10/02/19 03:30 171 H 40 H 116/71 10/02/19 03:29 150 H 145/85 H 10/02/19 03:21 10/02/19 03:09 39.8 C H 147 H 28 H 145/85 H Pulse Ox Pulse Ox 10/02/19 12:00 93 10/02/19 11:30 93 10/02/19 11:00 94 10/02/19 10:30 98 10/02/19 10:00 97 10/02/19 09:30 99 10/02/19 09:00 95 10/02/19 08:30 95 10/02/19 08:00 94 10/02/19 07:30 93 10/02/19 07:00 93 10/02/19 06:06 10/02/19 06:04 93 10/02/19 06:03 93 10/02/19 05:10 97 10/02/19 05:00 98 10/02/19 04:55 98 10/02/19 04:50 97 10/02/19 04:45 98 10/02/19 04:42 10/02/19 04:40 98 10/02/19 04:35 97 10/02/19 04:32 97 10/02/19 04:29 98 10/02/19 04:20 98 10/02/19 04:10 97 10/02/19 04:00 97 10/02/19 03:51 97 10/02/19 03:40 97 10/02/19 03:35 97 10/02/19 03:34 94 10/02/19 03:30 98 10/02/19 03:29 10/02/19 03:21 97 10/02/19 03:09 98 Laboratory Results 10/02/19 10/02/19 10/02/19 Range/Units 13:52 13:20 12:58 WBC (4.8-10.8) K/uL RBC (4.2-5.4) M/uL Hgb (12.0-16.0) g/dL Hct (37-47) % MCV (80-100) fL MCH (25-34) pg MCHC (32-36) g/dL RDW Std Deviation (36.4-46.3) fL RDW Coeff of Boris (11.5-14.5) % Plt Count (130-400) K/uL MPV (7.4-10.4) fL Immature Gran % (Auto) % Neut % (Auto) % Lymph % (Auto) % [place] % (Auto) % Eos % (Auto) % Baso % (Auto) % Immature Gran # (Auto) (0.00-0.02) K/uL Neut # (Auto) (1.4-6.5) K/uL Lymph # (Auto) (1.2-3.4) K/uL Deuel # (Auto) (0.11-0.59) K/uL Eos # (Auto) (0-0.5) K/uL Baso # (Auto) (0-0.2) K/uL RBC Morphology PT (9.0-12.0) Seconds INR (0.9-1.1) APTT (21.0-31.0) Seconds PTT Ratio Sample Site R Radial POC pH 7.32 L (7.35-7.45) POC pCO2 30 L (35-46) mmHg POC pO2 71 L (80-95) mmHg POC HCO3 16 L (19-24) lena/L POC Total CO2 16 L (24-31) mEq/l POC Base Excess -11.0 L (-9-1.8) lena/L POC ABG O2 Sat 93.0 (90-95) % Robinson Test Pass O2 Delivery Device Cannula Sodium (136-145) mmol/L Potassium (3.5-5.1) mmol/L Chloride (98-107) mmol/L Carbon Dioxide (21-32) mmol/L Anion Gap (3-11) BUN (7-18) mg/dl Creatinine (0.6-1.2) mg/dl Est Cr Clr Drug Dosing Est GFR ( Amer) Est GFR (Non-Af Amer) BUN/Creatinine Ratio (10-20) Glucose (70-99) mg/dl POC Glucose 167 H (70-99) Osmolality (280-300) mOsm/kg Lactate (0.4-2.0) mmol/L Calcium (8.5-10.1) mg/dl Magnesium (1.8-2.4) mg/dl Total Bilirubin (0.2-1) mg/dl AST (15-37) U/L ALT (12-78) U/L Alkaline Phosphatase (45-117) U/L Troponin I (0-0.045) ng/ml Total Protein (6.4-8.2) gm/dl Albumin (3.4-5.0) gm/dl Globulin (2.5-4.0) gm/dl Albumin/Globulin Ratio (0.9-2) Beta-Hydroxybutyric Acd (0.2-2.81) mg/dl Urine Color Urine Appearance (Clear) Urine pH (4.5-7.5) Ur Specific [place] (1.000-1.030) Urine Protein (Negative) Urine Glucose (UA) (Negative) Urine Ketones (Negative) Urine Blood (Negative) Urine Nitrite (Negative) Urine Bilirubin (Negative) Urine Urobilinogen (Negative) Ur Leukocyte Esterase (Negative) Urine WBC (Auto) (0-5) /hpf Urine RBC (Auto) (0-4) /hpf U Hyaline Cast (Auto) (0-5) /lpf U Epithel Cells (Auto) (0-5) /lpf Urine Bacteria (Auto) (Negative) Ur Renal Epithelial Cell Amorphous Sediment (None Prsent) Urine Yeast (None Prsent) Urine Osmolality (500-800) mOsm/kg Ur Random Sodium mmol/L Urine Sodium mmol/L Urine Potassium mmol/L Urine Chloride mmol/L Nasal Screen MRSA (PCR) (Negative) Influenza Type A Ag (Neg) Influenza Type A (PCR) Neg for Influ A (Neg) Influenza Type B Ag (Neg) Influenza Type B (PCR) Neg for Influ B (Neg) 10/02/19 10/02/19 10/02/19 Range/Units 11:02 11:02 11:02 WBC (4.8-10.8) K/uL RBC (4.2-5.4) M/uL Hgb (12.0-16.0) g/dL Hct (37-47) % MCV (80-100) fL MCH (25-34) pg MCHC (32-36) g/dL RDW Std Deviation (36.4-46.3) fL RDW Coeff of Boris (11.5-14.5) % Plt Count (130-400) K/uL MPV (7.4-10.4) fL Immature Gran % (Auto) % Neut % (Auto) % Lymph % (Auto) % De[place] % (Auto) % Eos % (Auto) % Baso % (Auto) % Immature Gran # (Auto) (0.00-0.02) K/uL Neut # (Auto) (1.4-6.5) K/uL Lymph # (Auto) (1.2-3.4) K/uL Deuel # (Auto) (0.11-0.59) K/uL Eos # (Auto) (0-0.5) K/uL Baso # (Auto) (0-0.2) K/uL RBC Morphology PT (9.0-12.0) Seconds INR (0.9-1.1) APTT 31.9 H (21.0-31.0) Seconds PTT Ratio 1.2 Sample Site POC pH (7.35-7.45) POC pCO2 (35-46) mmHg POC pO2 (80-95) mmHg POC HCO3 (19-24) lena/L POC Total CO2 (24-31) mEq/l POC Base Excess (-9-1.8) lena/L POC ABG O2 Sat (90-95) % Robinson Test O2 Delivery Device Sodium 148 H D (136-145) mmol/L Potassium 3.9 (3.5-5.1) mmol/L Chloride 121 H (98-107) mmol/L Carbon Dioxide 19 L (21-32) mmol/L Anion Gap 8.0 (3-11) BUN 54 H (7-18) mg/dl Creatinine Cancelled 2.35 H (0.6-1.2) mg/dl Est Cr Clr Drug Dosing Cancelled 11.7 Est GFR ( Amer) Cancelled 20.6 Est GFR (Non-Af Amer) Cancelled 17.8 BUN/Creatinine Ratio 23.0 H (10-20) Glucose 367 H* (70-99) mg/dl POC Glucose (70-99) Osmolality (280-300) mOsm/kg Lactate (0.4-2.0) mmol/L Calcium 7.1 L (8.5-10.1) mg/dl Magnesium (1.8-2.4) mg/dl Total Bilirubin (0.2-1) mg/dl AST (15-37) U/L ALT (12-78) U/L Alkaline Phosphatase (45-117) U/L Troponin I (0-0.045) ng/ml Total Protein (6.4-8.2) gm/dl Albumin (3.4-5.0) gm/dl Globulin (2.5-4.0) gm/dl Albumin/Globulin Ratio (0.9-2) Beta-Hydroxybutyric Acd 0.69 (0.2-2.81) mg/dl Urine Color Urine Appearance (Clear) Urine pH (4.5-7.5) Ur Specific [place] (1.000-1.030) Urine Protein (Negative) Urine Glucose (UA) (Negative) Urine Ketones (Negative) Urine Blood (Negative) Urine Nitrite (Negative) Urine Bilirubin (Negative) Urine Urobilinogen (Negative) Ur Leukocyte Esterase (Negative) Urine WBC (Auto) (0-5) /hpf Urine RBC (Auto) (0-4) /hpf U Hyaline Cast (Auto) (0-5) /lpf U Epithel Cells (Auto) (0-5) /lpf Urine Bacteria (Auto) (Negative) Ur Renal Epithelial Cell Amorphous Sediment (None Prsent) Urine Yeast (None Prsent) Urine Osmolality (500-800) mOsm/kg Ur Random Sodium mmol/L Urine Sodium mmol/L Urine Potassium mmol/L Urine Chloride mmol/L Nasal Screen MRSA (PCR) (Negative) Influenza Type A Ag (Neg) Influenza Type A (PCR) (Neg) Influenza Type B Ag (Neg) Influenza Type B (PCR) (Neg) 10/02/19 10/02/19 10/02/19 Range/Units 09:06 08:50 08:50 WBC (4.8-10.8) K/uL RBC (4.2-5.4) M/uL Hgb (12.0-16.0) g/dL Hct (37-47) % MCV (80-100) fL MCH (25-34) pg MCHC (32-36) g/dL RDW Std Deviation (36.4-46.3) fL RDW Coeff of Boris (11.5-14.5) % Plt Count (130-400) K/uL MPV (7.4-10.4) fL Immature Gran % (Auto) % Neut % (Auto) % Lymph % (Auto) % [place] % (Auto) % Eos % (Auto) % Baso % (Auto) % Immature Gran # (Auto) (0.00-0.02) K/uL Neut # (Auto) (1.4-6.5) K/uL Lymph # (Auto) (1.2-3.4) K/uL Deuel # (Auto) (0.11-0.59) K/uL Eos # (Auto) (0-0.5) K/uL Baso # (Auto) (0-0.2) K/uL RBC Morphology PT (9.0-12.0) Seconds INR (0.9-1.1) APTT (21.0-31.0) Seconds PTT Ratio Sample Site POC pH (7.35-7.45) POC pCO2 (35-46) mmHg POC pO2 (80-95) mmHg POC HCO3 (19-24) lena/L POC Total CO2 (24-31) mEq/l POC Base Excess (-9-1.8) lena/L POC ABG O2 Sat (90-95) % Robinson Test O2 Delivery Device Sodium (136-145) mmol/L Potassium (3.5-5.1) mmol/L Chloride (98-107) mmol/L Carbon Dioxide (21-32) mmol/L Anion Gap (3-11) BUN (7-18) mg/dl Creatinine (0.6-1.2) mg/dl Est Cr Clr Drug Dosing Est GFR ( Amer) Est GFR (Non-Af Amer) BUN/Creatinine Ratio (10-20) Glucose (70-99) mg/dl POC Glucose 142 H (70-99) Osmolality (280-300) mOsm/kg Lactate (0.4-2.0) mmol/L Calcium (8.5-10.1) mg/dl Magnesium (1.8-2.4) mg/dl Total Bilirubin (0.2-1) mg/dl AST (15-37) U/L ALT (12-78) U/L Alkaline Phosphatase (45-117) U/L Troponin I (0-0.045) ng/ml Total Protein (6.4-8.2) gm/dl Albumin (3.4-5.0) gm/dl Globulin (2.5-4.0) gm/dl Albumin/Globulin Ratio (0.9-2) Beta-Hydroxybutyric Acd (0.2-2.81) mg/dl Urine Color Urine Appearance (Clear) Urine pH (4.5-7.5) Ur Specific [place] (1.000-1.030) Urine Protein (Negative) Urine Glucose (UA) (Negative) Urine Ketones (Negative) Urine Blood (Negative) Urine Nitrite (Negative) Urine Bilirubin (Negative) Urine Urobilinogen (Negative) Ur Leukocyte Esterase (Negative) Urine WBC (Auto) (0-5) /hpf Urine RBC (Auto) (0-4) /hpf U Hyaline Cast (Auto) (0-5) /lpf U Epithel Cells (Auto) (0-5) /lpf Urine Bacteria (Auto) (Negative) Ur Renal Epithelial Cell Amorphous Sediment (None Prsent) Urine Yeast (None Prsent) Urine Osmolality 526 (500-800) mOsm/kg Ur Random Sodium mmol/L Urine Sodium 48 mmol/L Urine Potassium 71.1 mmol/L Urine Chloride 48 mmol/L Nasal Screen MRSA (PCR) (Negative) Influenza Type A Ag (Neg) Influenza Type A (PCR) (Neg) Influenza Type B Ag (Neg) Influenza Type B (PCR) (Neg) 10/02/19 10/02/19 10/02/19 Range/Units 07:40 07:40 07:17 WBC (4.8-10.8) K/uL RBC (4.2-5.4) M/uL Hgb (12.0-16.0) g/dL Hct (37-47) % MCV (80-100) fL MCH (25-34) pg MCHC (32-36) g/dL RDW Std Deviation (36.4-46.3) fL RDW Coeff of Boris (11.5-14.5) % Plt Count (130-400) K/uL MPV (7.4-10.4) fL Immature Gran % (Auto) % Neut % (Auto) % Lymph % (Auto) % [place] % (Auto) % Eos % (Auto) % Baso % (Auto) % Immature Gran # (Auto) (0.00-0.02) K/uL Neut # (Auto) (1.4-6.5) K/uL Lymph # (Auto) (1.2-3.4) K/uL Deuel # (Auto) (0.11-0.59) K/uL Eos # (Auto) (0-0.5) K/uL Baso # (Auto) (0-0.2) K/uL RBC Morphology PT (9.0-12.0) Seconds INR (0.9-1.1) APTT (21.0-31.0) Seconds PTT Ratio Sample Site POC pH (7.35-7.45) POC pCO2 (35-46) mmHg POC pO2 (80-95) mmHg POC HCO3 (19-24) lena/L POC Total CO2 (24-31) mEq/l POC Base Excess (-9-1.8) lena/L POC ABG O2 Sat (90-95) % Robinson Test O2 Delivery Device Sodium 157 H* (136-145) mmol/L Potassium 4.0 D (3.5-5.1) mmol/L Chloride 130 H (98-107) mmol/L Carbon Dioxide 18 L (21-32) mmol/L Anion Gap 8.0 (3-11) BUN 60 H (7-18) mg/dl Creatinine 2.38 H D (0.6-1.2) mg/dl Est Cr Clr Drug Dosing 11.5 Est GFR ( Amer) 20.3 Est GFR (Non-Af Amer) 17.5 BUN/Creatinine Ratio 25.4 H (10-20) Glucose 178 H (70-99) mg/dl POC Glucose 194 H (70-99) Osmolality (280-300) mOsm/kg Lactate 1.6 (0.4-2.0) mmol/L Calcium 7.5 L (8.5-10.1) mg/dl Magnesium (1.8-2.4) mg/dl Total Bilirubin (0.2-1) mg/dl AST (15-37) U/L ALT (12-78) U/L Alkaline Phosphatase (45-117) U/L Troponin I 0.174 H* (0-0.045) ng/ml Total Protein (6.4-8.2) gm/dl Albumin (3.4-5.0) gm/dl Globulin (2.5-4.0) gm/dl Albumin/Globulin Ratio (0.9-2) Beta-Hydroxybutyric Acd (0.2-2.81) mg/dl Urine Color Urine Appearance (Clear) Urine pH (4.5-7.5) Ur Specific [place] (1.000-1.030) Urine Protein (Negative) Urine Glucose (UA) (Negative) Urine Ketones (Negative) Urine Blood (Negative) Urine Nitrite (Negative) Urine Bilirubin (Negative) Urine Urobilinogen (Negative) Ur Leukocyte Esterase (Negative) Urine WBC (Auto) (0-5) /hpf Urine RBC (Auto) (0-4) /hpf U Hyaline Cast (Auto) (0-5) /lpf U Epithel Cells (Auto) (0-5) /lpf Urine Bacteria (Auto) (Negative) Ur Renal Epithelial Cell Amorphous Sediment (None Prsent) Urine Yeast (None Prsent) Urine Osmolality (500-800) mOsm/kg Ur Random Sodium mmol/L Urine Sodium mmol/L Urine Potassium mmol/L Urine Chloride mmol/L Nasal Screen MRSA (PCR) (Negative) Influenza Type A Ag (Neg) Influenza Type A (PCR) (Neg) Influenza Type B Ag (Neg) Influenza Type B (PCR) (Neg) 10/02/19 10/02/19 10/02/19 Range/Units 06:42 06:20 06:10 WBC (4.8-10.8) K/uL RBC (4.2-5.4) M/uL Hgb (12.0-16.0) g/dL Hct (37-47) % MCV (80-100) fL MCH (25-34) pg MCHC (32-36) g/dL RDW Std Deviation (36.4-46.3) fL RDW Coeff of Boris (11.5-14.5) % Plt Count (130-400) K/uL MPV (7.4-10.4) fL Immature Gran % (Auto) % Neut % (Auto) % Lymph % (Auto) % [place] % (Auto) % Eos % (Auto) % Baso % (Auto) % Immature Gran # (Auto) (0.00-0.02) K/uL Neut # (Auto) (1.4-6.5) K/uL Lymph # (Auto) (1.2-3.4) K/uL Deuel # (Auto) (0.11-0.59) K/uL Eos # (Auto) (0-0.5) K/uL Baso # (Auto) (0-0.2) K/uL RBC Morphology PT (9.0-12.0) Seconds INR (0.9-1.1) APTT (21.0-31.0) Seconds PTT Ratio Sample Site L Radial POC pH 7.35 (7.35-7.45) POC pCO2 31 L (35-46) mmHg POC pO2 65 L (80-95) mmHg POC HCO3 17 L (19-24) lena/L POC Total CO2 18 L (24-31) mEq/l POC Base Excess -8.0 (-9-1.8) lena/L POC ABG O2 Sat 92.0 (90-95) % Robinson Test Pass O2 Delivery Device Cannula Sodium (136-145) mmol/L Potassium (3.5-5.1) mmol/L Chloride (98-107) mmol/L Carbon Dioxide (21-32) mmol/L Anion Gap (3-11) BUN (7-18) mg/dl Creatinine (0.6-1.2) mg/dl Est Cr Clr Drug Dosing Est GFR ( Amer) Est GFR (Non-Af Amer) BUN/Creatinine Ratio (10-20) Glucose (70-99) mg/dl POC Glucose 190 H (70-99) Osmolality (280-300) mOsm/kg Lactate (0.4-2.0) mmol/L Calcium (8.5-10.1) mg/dl Magnesium (1.8-2.4) mg/dl Total Bilirubin (0.2-1) mg/dl AST (15-37) U/L ALT (12-78) U/L Alkaline Phosphatase (45-117) U/L Troponin I (0-0.045) ng/ml Total Protein (6.4-8.2) gm/dl Albumin (3.4-5.0) gm/dl Globulin (2.5-4.0) gm/dl Albumin/Globulin Ratio (0.9-2) Beta-Hydroxybutyric Acd (0.2-2.81) mg/dl Urine Color Urine Appearance (Clear) Urine pH (4.5-7.5) Ur Specific [place] (1.000-1.030) Urine Protein (Negative) Urine Glucose (UA) (Negative) Urine Ketones (Negative) Urine Blood (Negative) Urine Nitrite (Negative) Urine Bilirubin (Negative) Urine Urobilinogen (Negative) Ur Leukocyte Esterase (Negative) Urine WBC (Auto) (0-5) /hpf Urine RBC (Auto) (0-4) /hpf U Hyaline Cast (Auto) (0-5) /lpf U Epithel Cells (Auto) (0-5) /lpf Urine Bacteria (Auto) (Negative) Ur Renal Epithelial Cell Amorphous Sediment (None Prsent) Urine Yeast (None Prsent) Urine Osmolality (500-800) mOsm/kg Ur Random Sodium mmol/L Urine Sodium mmol/L Urine Potassium mmol/L Urine Chloride mmol/L Nasal Screen MRSA (PCR) Negative (Negative) Influenza Type A Ag (Neg) Influenza Type A (PCR) (Neg) Influenza Type B Ag (Neg) Influenza Type B (PCR) (Neg) 10/02/19 10/02/19 10/02/19 Range/Units 05:27 05:27 03:28 WBC (4.8-10.8) K/uL RBC (4.2-5.4) M/uL Hgb (12.0-16.0) g/dL Hct (37-47) % MCV (80-100) fL MCH (25-34) pg MCHC (32-36) g/dL RDW Std Deviation (36.4-46.3) fL RDW Coeff of Boris (11.5-14.5) % Plt Count (130-400) K/uL MPV (7.4-10.4) fL Immature Gran % (Auto) % Neut % (Auto) % Lymph % (Auto) % [place] % (Auto) % Eos % (Auto) % Baso % (Auto) % Immature Gran # (Auto) (0.00-0.02) K/uL Neut # (Auto) (1.4-6.5) K/uL Lymph # (Auto) (1.2-3.4) K/uL [place] # (Auto) (0.11-0.59) K/uL Eos # (Auto) (0-0.5) K/uL Baso # (Auto) (0-0.2) K/uL RBC Morphology PT (9.0-12.0) Seconds INR (0.9-1.1) APTT (21.0-31.0) Seconds PTT Ratio Sample Site POC pH (7.35-7.45) POC pCO2 (35-46) mmHg POC pO2 (80-95) mmHg POC HCO3 (19-24) lena/L POC Total CO2 (24-31) mEq/l POC Base Excess (-9-1.8) lena/L POC ABG O2 Sat (90-95) % Robinson Test O2 Delivery Device Sodium (136-145) mmol/L Potassium (3.5-5.1) mmol/L Chloride (98-107) mmol/L Carbon Dioxide (21-32) mmol/L Anion Gap (3-11) BUN (7-18) mg/dl Creatinine (0.6-1.2) mg/dl Est Cr Clr Drug Dosing Est GFR ( Amer) Est GFR (Non-Af Amer) BUN/Creatinine Ratio (10-20) Glucose (70-99) mg/dl POC Glucose (70-99) Osmolality 346 H (280-300) mOsm/kg Lactate 1.8 (0.4-2.0) mmol/L Calcium (8.5-10.1) mg/dl Magnesium (1.8-2.4) mg/dl Total Bilirubin (0.2-1) mg/dl AST (15-37) U/L ALT (12-78) U/L Alkaline Phosphatase (45-117) U/L Troponin I (0-0.045) ng/ml Total Protein (6.4-8.2) gm/dl Albumin (3.4-5.0) gm/dl Globulin (2.5-4.0) gm/dl Albumin/Globulin Ratio (0.9-2) Beta-Hydroxybutyric Acd (0.2-2.81) mg/dl Urine Color Urine Appearance (Clear) Urine pH (4.5-7.5) Ur Specific [place] (1.000-1.030) Urine Protein (Negative) Urine Glucose (UA) (Negative) Urine Ketones (Negative) Urine Blood (Negative) Urine Nitrite (Negative) Urine Bilirubin (Negative) Urine Urobilinogen (Negative) Ur Leukocyte Esterase (Negative) Urine WBC (Auto) (0-5) /hpf Urine RBC (Auto) (0-4) /hpf U Hyaline Cast (Auto) (0-5) /lpf U Epithel Cells (Auto) (0-5) /lpf Urine Bacteria (Auto) (Negative) Ur Renal Epithelial Cell Amorphous Sediment (None Prsent) Urine Yeast (None Prsent) Urine Osmolality (500-800) mOsm/kg Ur Random Sodium 22 mmol/L Urine Sodium mmol/L Urine Potassium mmol/L Urine Chloride mmol/L Nasal Screen MRSA (PCR) (Negative) Influenza Type A Ag (Neg) Influenza Type A (PCR) (Neg) Influenza Type B Ag (Neg) Influenza Type B (PCR) (Neg) 10/02/19 10/02/19 10/02/19 Range/Units 03:28 03:24 03:22 WBC (4.8-10.8) K/uL RBC (4.2-5.4) M/uL Hgb (12.0-16.0) g/dL Hct (37-47) % MCV (80-100) fL MCH (25-34) pg MCHC (32-36) g/dL RDW Std Deviation (36.4-46.3) fL RDW Coeff of Boris (11.5-14.5) % Plt Count (130-400) K/uL MPV (7.4-10.4) fL Immature Gran % (Auto) % Neut % (Auto) % Lymph % (Auto) % [place] % (Auto) % Eos % (Auto) % Baso % (Auto) % Immature Gran # (Auto) (0.00-0.02) K/uL Neut # (Auto) (1.4-6.5) K/uL Lymph # (Auto) (1.2-3.4) K/uL [place] # (Auto) (0.11-0.59) K/uL Eos # (Auto) (0-0.5) K/uL Baso # (Auto) (0-0.2) K/uL RBC Morphology PT 14.6 H (9.0-12.0) Seconds INR 1.5 H (0.9-1.1) APTT 28.2 (21.0-31.0) Seconds PTT Ratio 1.0 Sample Site POC pH (7.35-7.45) POC pCO2 (35-46) mmHg POC pO2 (80-95) mmHg POC HCO3 (19-24) lena/L POC Total CO2 (24-31) mEq/l POC Base Excess (-9-1.8) lena/L POC ABG O2 Sat (90-95) % Robinson Test O2 Delivery Device Sodium (136-145) mmol/L Potassium (3.5-5.1) mmol/L Chloride (98-107) mmol/L Carbon Dioxide (21-32) mmol/L Anion Gap (3-11) BUN (7-18) mg/dl Creatinine (0.6-1.2) mg/dl Est Cr Clr Drug Dosing Est GFR ( Amer) Est GFR (Non-Af Amer) BUN/Creatinine Ratio (10-20) Glucose (70-99) mg/dl POC Glucose (70-99) Osmolality (280-300) mOsm/kg Lactate (0.4-2.0) mmol/L Calcium (8.5-10.1) mg/dl Magnesium (1.8-2.4) mg/dl Total Bilirubin (0.2-1) mg/dl AST (15-37) U/L ALT (12-78) U/L Alkaline Phosphatase (45-117) U/L Troponin I (0-0.045) ng/ml Total Protein (6.4-8.2) gm/dl Albumin (3.4-5.0) gm/dl Globulin (2.5-4.0) gm/dl Albumin/Globulin Ratio (0.9-2) Beta-Hydroxybutyric Acd (0.2-2.81) mg/dl Urine Color Yellow Urine Appearance Cloudy A (Clear) Urine pH 5.0 (4.5-7.5) Ur Specific [place] 1.020 (1.000-1.030) Urine Protein 2+ H (Negative) Urine Glucose (UA) Negative (Negative) Urine Ketones Trace H (Negative) Urine Blood 2+ H (Negative) Urine Nitrite Negative (Negative) Urine Bilirubin Negative (Negative) Urine Urobilinogen Negative (Negative) Ur Leukocyte Esterase Trace H (Negative) Urine WBC (Auto) 5-10 H (0-5) /hpf Urine RBC (Auto) 5-10 H (0-4) /hpf U Hyaline Cast (Auto) 5-10 H (0-5) /lpf U Epithel Cells (Auto) >30 H (0-5) /lpf Urine Bacteria (Auto) Negative (Negative) Ur Renal Epithelial Cell Not Reportable Amorphous Sediment Present A (None Prsent) Urine Yeast Present A (None Prsent) Urine Osmolality (500-800) mOsm/kg Ur Random Sodium mmol/L Urine Sodium mmol/L Urine Potassium mmol/L Urine Chloride mmol/L Nasal Screen MRSA (PCR) (Negative) Influenza Type A Ag Neg for Influ A (Neg) Influenza Type A (PCR) (Neg) Influenza Type B Ag Neg for Influ B (Neg) Influenza Type B (PCR) (Neg) 10/02/19 10/02/19 10/02/19 Range/Units 03:22 03:22 03:22 WBC 24.87 H (4.8-10.8) K/uL RBC 3.72 L (4.2-5.4) M/uL Hgb 10.5 L (12.0-16.0) g/dL Hct 33.3 L (37-47) % MCV 89.5 (80-100) fL MCH 28.2 (25-34) pg MCHC 31.5 L (32-36) g/dL RDW Std Deviation 49.4 H (36.4-46.3) fL RDW Coeff of Boris 15.3 H (11.5-14.5) % Plt Count 432 H (130-400) K/uL MPV 9.1 (7.4-10.4) fL Immature Gran % (Auto) 2.3 % Neut % (Auto) 86.8 % Lymph % (Auto) 3.3 % Deuel % (Auto) 7.4 % Eos % (Auto) 0.0 % Baso % (Auto) 0.2 % Immature Gran # (Auto) 0.56 H (0.00-0.02) K/uL Neut # (Auto) 21.59 H (1.4-6.5) K/uL Lymph # (Auto) 0.82 L (1.2-3.4) K/uL Deuel # (Auto) 1.85 H (0.11-0.59) K/uL Eos # (Auto) 0.00 (0-0.5) K/uL Baso # (Auto) 0.05 (0-0.2) K/uL RBC Morphology Unremarkable PT (9.0-12.0) Seconds INR (0.9-1.1) APTT (21.0-31.0) Seconds PTT Ratio Sample Site POC pH (7.35-7.45) POC pCO2 (35-46) mmHg POC pO2 (80-95) mmHg POC HCO3 (19-24) lena/L POC Total CO2 (24-31) mEq/l POC Base Excess (-9-1.8) lena/L POC ABG O2 Sat (90-95) % Robinson Test O2 Delivery Device Sodium 157 H* (136-145) mmol/L Potassium 3.1 L (3.5-5.1) mmol/L Chloride 129 H (98-107) mmol/L Carbon Dioxide 20 L (21-32) mmol/L Anion Gap 8.0 (3-11) BUN 61 H (7-18) mg/dl Creatinine 2.81 H (0.6-1.2) mg/dl Est Cr Clr Drug Dosing Not Reportable Est GFR ( Amer) 16.6 Est GFR (Non-Af Amer) 14.3 BUN/Creatinine Ratio 21.8 H (10-20) Glucose 142 H (70-99) mg/dl POC Glucose (70-99) Osmolality (280-300) mOsm/kg Lactate 2.4 H* (0.4-2.0) mmol/L Calcium 8.4 L (8.5-10.1) mg/dl Magnesium 2.4 (1.8-2.4) mg/dl Total Bilirubin 0.3 (0.2-1) mg/dl AST 18 (15-37) U/L ALT 18 (12-78) U/L Alkaline Phosphatase 98 (45-117) U/L Troponin I 0.197 H* (0-0.045) ng/ml Total Protein 7.0 (6.4-8.2) gm/dl Albumin 2.4 L (3.4-5.0) gm/dl Globulin 4.6 H (2.5-4.0) gm/dl Albumin/Globulin Ratio 0.5 L (0.9-2) Beta-Hydroxybutyric Acd (0.2-2.81) mg/dl Urine Color Urine Appearance (Clear) Urine pH (4.5-7.5) Ur Specific [place] (1.000-1.030) Urine Protein (Negative) Urine Glucose (UA) (Negative) Urine Ketones (Negative) Urine Blood (Negative) Urine Nitrite (Negative) Urine Bilirubin (Negative) Urine Urobilinogen (Negative) Ur Leukocyte Esterase (Negative) Urine WBC (Auto) (0-5) /hpf Urine RBC (Auto) (0-4) /hpf U Hyaline Cast (Auto) (0-5) /lpf U Epithel Cells (Auto) (0-5) /lpf Urine Bacteria (Auto) (Negative) Ur Renal Epithelial Cell Amorphous Sediment (None Prsent) Urine Yeast (None Prsent) Urine Osmolality (500-800) mOsm/kg Ur Random Sodium mmol/L Urine Sodium mmol/L Urine Potassium mmol/L Urine Chloride mmol/L Nasal Screen MRSA (PCR) (Negative) Influenza Type A Ag (Neg) Influenza Type A (PCR) (Neg) Influenza Type B Ag (Neg) Influenza Type B (PCR) (Neg) Medications Administered Current Inpatient Medications Albuterol (Duoneb) 3 ml NEB Q4R PRN PRN Reason: Shortness Of Breath Or Wheezing Stop: 11/01/19 10:59 Aspirin (Aspirin Chew) 81 mg PO DAILY [facility] Stop: 11/01/19 08:59 Last Admin: 10/02/19 07:52 Dose: 81 mg Documented by: Dextrose (Dextrose 50%) 25 - 50 ml IV UD PRN; Protocol PRN Reason: Hypoglycemia Protocol Stop: 11/01/19 08:44 Glucagon (Glucagen) 1 mg IM UD PRN; Protocol PRN Reason: Hypoglycemia Protocol Stop: 11/01/19 08:44 Glucose (Glucose 40%) 15 - 30 gm PO UD PRN; Protocol PRN Reason: Hypoglycemia Protocol Stop: 11/01/19 08:44 Glucose (Dex4 Glucose) 4 - 8 tabs PO UD PRN; Protocol PRN Reason: Hypoglycemia Protocol Stop: 11/01/19 08:44 Phenylephrine HCl 20 mg/ (Dextrose) 502 mls @ 36.671 mls/hr IV .[id number] LISA; Protocol Stop: 11/01/19 05:55 Piperacillin Sod/Tazobactam (Sod 4.5 gm/ Dextrose) 120 mls @ 30 mls/hr IV Q12H LISA; Protocol Stop: 10/04/19 11:59 Last Admin: 10/02/19 13:55 Dose: 30 mls/hr Documented by: Dextrose (D5w) 1,000 mls @ 75 mls/hr IV .[id number] [facility] Stop: 11/01/19 08:44 Last Admin: 10/02/19 09:00 Dose: 75 mls/hr Documented by: Doxycycline Hyclate 100 mg/ (Dextrose) 110 mls @ 50 mls/hr IV Q12H [facility] Stop: 10/09/19 10:59 Last Admin: 10/02/19 11:45 Dose: 50 mls/hr Documented by: Heparin Sodium/Dextrose (Heparin Sodium/Dextrose) 25,000 units in 500 mls @ 11 mls/hr IV .Q24H [facility]; Protocol Stop: 11/01/19 10:59 Last Admin: 10/02/19 11:40 Dose: 550 units/hr, 11 mls/hr Documented by: Insulin Aspart (Novolog Flexpen) 0 units SC Q6 LISA Stop: 11/01/19 08:44 Last Admin: 10/02/19 13:02 Dose: Not Given Documented by: Latanoprost (Xalatan Oph) 1 drops OPB HS [facility] Stop: 11/01/19 20:59 Miscellaneous (Icu Protocol For Hyperglycemia) 1 ea N/A PRN PRN; Protocol PRN Reason: Hyperglycemia Protocol Stop: 10/04/19 06:02 Miscellaneous (Carbohydrates For Hypoglycemia) 15 - 30 gm PO UD PRN PRN Reason: Hypoglycemia Treatment Stop: 11/01/19 08:44 Miscellaneous Information (Consult) 1 ea N/A UD PRN PRN Reason: Consult Stop: 11/01/19 03:15 Miscellaneous Information (Consult) 1 ea N/A UD PRN PRN Reason: Consult Stop: 11/01/19 06:02 Venlafaxine HCl (Effexor Extended Release) 150 mg PO DAILY [facility] Stop: 11/01/19 08:59 Last Admin: 10/02/19 07:52 Dose: Not Given Documented by: Resident Activity Tracking Resident Involvement: Resident Care Provided Care Provided: Adult Hospital Medicine
[2019-10-02] MEDS: PIPERACILLIN/TAZOBACTAM 4.5 GM in DEXTROSE 5% 100 ML IV SCH (13:55)
[2019-10-02 14:06] LABS: iSTAT Allen Test Pass; iSTAT Arterial Blood Gas HCO3 16 meg/L (19-24); iSTAT Arterial Blood Gas pCO2 30 mmHg (35-46); iSTAT Arterial Blood Gas pH 7.32 (7.35-7.45); iSTAT Arterial Blood Gas pO2 71 mmHg (80-95); iSTAT Carbon Dioxide 16 mEq/l (24-31); iSTAT Site R Radial
[2019-10-02] MEDS ORDERED: RAPID SEQUENCE INDUCTION BAG ONE (14:08)
[2019-10-02 14:10] LABS: Influenza A virus by PCR Neg for Influ A (Neg); Influenza B virus by PCR Neg for Influ B (Neg)
--- NOTE | 2019-10-02 14:47 | XRay Report ---
XR chest 1V portable HISTORY: 89 years-old Female right PICC tip confirmation, at fib status post placement of a right-si ded PICC COMPARISON: Chest radiograph of same day at 6:49 AM TECHNIQUE: Supine AP view of the chest FINDINGS: Status post placement of a right-sided PICC courses into the distribution of the right brachiocephali c vein. The distal 1.9 cm of the catheter tip looped upon itself with distal tip projected superiorly within the expected location of the proximal SVC. Calcified plaque of the thoracic aorta. Cardiomega ly. No definitive pneumothorax, large pleural effusion or overt pulmonary edema. Ill-defined right ba silar opacities redemonstrated. Mild likely chronic interstitial coarsening. Degenerative changes of the shoulders and spine. IMPRESSION: 1. Status post placement of a right-sided PICC, the distal 1.9 cm of the catheter is folded upon itse lf and projected superiorly within the expected location of the proximal SVC. Repositioning with foll ow-up imaging recommended. 2. No postprocedural pneumothorax. 3. Cardiomegaly. ACT 112: Negative or not required by law. The above report was generated using voice recognition software. It may contain grammatical, syntax o r spelling errors. Electronically signed by: Carlos Lara M.D. 10/02/2019 2:46 PM
--- NOTE | 2019-10-02 15:03 | XRay Report ---
XR chest 1V portable HISTORY: 89 years-old Female REPOSITION PICC repositioned right-sided PICC COMPARISON: Chest radiograph of same day at 2:37 PM TECHNIQUE: Supine AP view of the chest FINDINGS: Repositioned right-sided PICC distal tip now projects inferiorly within the expected location of the inferior SVC. No postprocedural pneumothorax. Cardiac silhouette is again enlarged ill-defined bibasi lar opacities suggest probable atelectasis. Chronic interstitial coarsening persists with possible mi ld pulmonary vascular congestion. Degenerative changes of the shoulders and spine. IMPRESSION: 1. Repositioned right-sided PICC distal tip projects inferiorly within the expected location of the i nferior SVC. 2. No postprocedural pneumothorax. ACT 112: Negative or not required by law. The above report was generated using voice recognition software. It may contain grammatical, syntax o r spelling errors. Electronically signed by: Carlos Lara M.D. 10/02/2019 3:01 PM
[2019-10-02] MEDS ORDERED: LIDOCAINE 2% 20 MG/ML 5 ML SYR IV ONE (15:27)
[2019-10-02] MEDS ORDERED: PROPOFOL IV EMULSION 10 MG/ML 100 ML VIAL IV ONE (15:39)
[2019-10-02] MEDS ORDERED: fentaNYL citrate 100 MCG/2 ML VIAL IV PRN (15:46)
[2019-10-02] MEDS ORDERED: MIDAZOLAM HCL 1 MG/ML 2ML VIAL IV STA (15:51)
[2019-10-02] MEDS ORDERED: LIDOCAINE 2% 20 MG/ML 5 ML SYR IV STA (15:51)
--- NOTE | 2019-10-02 15:51 | Procedure Note ---
Procedure Note Date of Service October 02, 2019 INTUBATION PROCEDURE NOTE: Attending: Dr Анна Wharton MD, assisted by Dr. Misha Starkey Patient was evaluated and plan to intubate was made for ventilatory failure Sedative agent used: 2 mg of midazolam, 20 mg of etomidate and 50 mg of 2% lidocaine Paralysis agent used: None Telephonic consent from daughter was implied given patients rapidly declining clinical status and need for airway protection. The patient was prepared in the appropriate fashion. The patient was easily pre-oxygenated by using [id number] ventilation. With help of DL grade 2 vocal cords were visualized with thick secretions green- colored which were suctioned out and 7.5 Kinyarwanda ETT was introduced on first attempt to 23 cm at the lip. The stylette was removed and balloon was inflated with 10mL of air. Appropriate Colorimetric change was appreciated for at least 10 breaths. Bilateral chest rise and breath sounds were appreciated without air sounds in the epigastrium. Patient tolerated the procedure well and there were no immediate complications. Chest Xray to follow for confirming placement. Coding CPT Codes Resuscitation - Resuscitation: [id number] Endotracheal Intubation, emergency ([id number]) Ventilator Management - Ventilator Managment: [id number] Ventilation assist and management; Hospital inpt/obs, intl day ([id number])
[2019-10-02] MEDS: PROPOFOL 1,000 MG/100 ML VIAL IV SCH (16:02)
--- NOTE | 2019-10-02 16:07 | XRay Report ---
XR chest 1V portable CLINICAL HISTORY: intubation and OGT RESPIRATORY FAILURE COMPARISON STUDY: 10/02/2019 FINDINGS: There is a right subclavian central venous catheter. The tip projects over the right atrium . There is a nasogastric tube with its tip in the stomach. There is an endotracheal tube with its tip 14 mm above the magdy. The heart is normal in size. There is no failure. There are mild right lower lobe airspace opacities, atelectatic versus infectious/inflammatory.[ IMPRESSION: 1. Endotracheal 2 15 mm above the magdy 2. Nasogastric tube with its tip at the level the gastric cardia 3. Right subclavian central venous catheter with its tip at the level of the right atrium 4. Subtle right basilar airspace opacities, atelectatic versus infectious/inflammatory ACT 112: Negative or not required by law. Electronically signed by: Samm Herrera M.D. 10/02/2019 4:05 PM
[2019-10-02] MEDS: fentaNYL DRIP 1,250 MCG/250 ML BAG IV SCH (16:16)
[2019-10-02 16:36] LABS: BUN Creatinine Ratio 25.7 (10-20); Calcium 7.4 mg/dl (8.5-10.1); Creatinine Clr Calc Pharmacy 12.3 ml/min; Est GFR (African American) 21.9; Est GFR (Non-African American) 18.9; Potassium 3.9 mmol/L (3.5-5.1)
[2019-10-02] MEDS: RIVAROXABAN 15 MG TAB PO SCH (17:54)
[2019-10-02 20:09] LABS: BUN Creatinine Ratio 25.8 (10-20); Calcium 7.5 mg/dl (8.5-10.1); Creatinine Clr Calc Pharmacy 11.9 ml/min; Est GFR (African American) 21.1; Est GFR (Non-African American) 18.2; Potassium 3.3 mmol/L (3.5-5.1)
[2019-10-02] MEDS ORDERED: POTASSIUM CHLORIDE 20 MEQ/15 ML UDC PO STA (20:17)
[2019-10-02] MEDS: METOPROLOL TARTRATE 25 MG TAB PO SCH (20:41)
[2019-10-02] MEDS ORDERED: SODIUM CHLORIDE 0.45 % 1,000 ML IV SCH (20:45)
[2019-10-02] MEDS: LATANOPROST 0.005% OP SOLN 2.5 ML BTL OPB SCH (20:50)
--- NOTE | 2019-10-02 21:59 | Billing Data ---
Date of Service October 02, 2019 Coding Level of Care Code 23629 Subseq Hosp Care Lvl 1
[2019-10-03] MEDS: DOXYCYCLINE HYCLATE 100 MG in DEXTROSE 5% 100 ML IV SCH ×3 (00:34→23:48)
[2019-10-03] MEDS: PIPERACILLIN/TAZOBACTAM 4.5 GM in DEXTROSE 5% 100 ML IV SCH ×2 (00:37→11:18)
[2019-10-03 01:03] LABS: BUN Creatinine Ratio 25.5 (10-20); Calcium 7.8 mg/dl (8.5-10.1); Est GFR (African American) 21.2; Est GFR (Non-African American) 18.3; Potassium 3.9 mmol/L (3.5-5.1)
[2019-10-03] MEDS: INSULIN ASPART 100 UNITS/ML 3 ML PEN SC SCH ×4 (02:25→17:56)
[2019-10-03 04:51] LABS: Hematocrit (blood only) 27.8 % (37-47); Hemoglobin 8.8 g/dL (12.0-16.0); Mean Corpuscular Hemoglobin 27.8 pg (25-34); Mean Corpuscular Hgb Conc 31.7 g/dL (32-36); Mean Corpuscular Volume 87.7 fL (80-100); Mean Platelet Volume 8.7 fL (7.4-10.4); Nucleated RBC # (auto) 0.02 K/uL (0-0); Nucleated RBC % (auto) 0.1 %; Platelet Count 256 K/uL (130-400); RDW Coefficient of Variation 15.5 % (11.5-14.5); RDW Standard Deviation 49.6 fL (36.4-46.3); Red Blood Count 3.17 M/uL (4.2-5.4); White Blood Count 23.78 K/uL (4.8-10.8)
--- NOTE | 2019-10-03 04:53 | Billing Data ---
Date of Service October 03, 2019 Coding Level of Care Code Critical Care 1st - mins
[2019-10-03 05:10] LABS: Albumin Level 2.2 gm/dl (3.4-5.0); BUN Creatinine Ratio 24.9 (10-20); Calcium 7.6 mg/dl (8.5-10.1); Creatinine Clr Calc Pharmacy 12.3 ml/min; Est GFR (African American) 22.1; Potassium 3.8 mmol/L (3.5-5.1)
[2019-10-03 05:12] LABS: Albumin Globulin Ratio 0.6 (0.9-2); Bilirubin,Total 0.4 mg/dl (0.2-1); Globulin 3.7 gm/dl (2.5-4.0); Total Protein 5.9 gm/dl (6.4-8.2)
[2019-10-03 05:14] LABS: Basophils # (auto) 0.01 K/uL (0-0.2); Echinocytes 2+; Eosinophils # (auto) 0.01 K/uL (0-0.5); Immature Granulocytes # (auto) 0.26 K/uL (0.00-0.02); Immature Granulocytes % (auto) 1.1 %; Lymphocytes # (auto) 0.84 K/uL (1.2-3.4); Lymphocytes % (auto) 3.5 %; Monocytes # (auto) 0.64 K/uL (0.11-0.59); Monocytes % (auto) 2.7 %; Neutrophils # (auto) 22.02 K/uL (1.4-6.5); Neutrophils % (auto) 92.7 %
[2019-10-03] MEDS: DEXTROSE 5% 1,000 ML IV SCH ×2 (05:31→21:30)
[2019-10-03 05:58] LABS: iSTAT Allen Test Pass; iSTAT Arterial Blood Gas HCO3 14 meg/L (19-24); iSTAT Arterial Blood Gas pCO2 20 mmHg (35-46); iSTAT Arterial Blood Gas pH 7.45 (7.35-7.45); iSTAT Arterial Blood Gas pO2 87 mmHg (80-95); iSTAT Carbon Dioxide 14 mEq/l (24-31); iSTAT FiO2 35 %; iSTAT Site R Radial
--- NOTE | 2019-10-03 06:39 | XRay Report ---
XR chest 1V portable CLINICAL HISTORY: f/u COMPARISON STUDY: Chest radiograph October 02, 2019 3:58 PM. FINDINGS: Right-sided central venous catheter remains in place. Tip of nasogastric tube is within the body of the stomach. Tip of endotracheal tube is 2.6 cm above the magdy. There is no evidence for p ulmonary edema. Cardiomediastinal silhouette is stable. There are mild bibasilar opacities. IMPRESSION: 1. Satisfactory positioning of lines and tubes. 2. Persistent mild bibasilar opacities which may reflect consolidation or atelectasis. ACT 112: Negative or not required by law. Electronically signed by: Mahin Moralez M.D. 10/03/2019 6:37 AM
--- NOTE | 2019-10-03 06:42 | Critical Care Progress Note ---
Date of Service October 03, 2019 Assessment & Plan (1) Vascular dementia: Reason Critically Ill: 89-year-old female who initially presented from intermediate with A. fib RVR, hypernatremia, acute hypoxemic respiratory failure Neuro - Altered mental status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, vascular disease, prior CVA in the setting of UTI/sepsis -Patient demented at baseline, able to speak in short sentences but often they don't make sense or are unintelligible -Ammonia within normal limits, CO2 30 -CT head negative for acute process -BUN mildly elevated Currently unable to assess mental status as patient is intubated and sedated Cardiac - A. fib RVRpatient with history of PAF With repletion of potassium and volume patient converted back to sinus yesterday and remains there today Pressure has been stable but on the low side MAP greater than 65 not requiring pressor support Respiratory - Acute hypoxic respiratory failurelikely secondary to aspiration pneumonia -CXR showed right basilar opacity consistent with pneumonia versus atelectasis Bedside ultrasound showed this as well Patient was maintaining sats well on 2 L nasal cannula, however had consistent tachypnea and increased work of breathing since admission This was likely a combination of her pneumonia/sepsis and compensation for metabolic lactic/hyperchloremic acidosis Proceeded with intubation yesterday evening This morning ABG showing improvement, pH improved from 7.23 to 7.45, PO2 87 PCO2 was 20 HCO3 down to 14. Decreased respiratory rate to [address] chest non contrast today to further evaluate opacity GI - N.p.o. OG tube in place Abdominal tendernessright lower quadrant tenderness with deep palpation Could represent diverticulitis or other intra abdominal pathology, will evaluate with CT abdomen oral contrast today -LFTs within normal limits -Zosyn added to antibiotic regimen, see below RENAL/LYTES - Acute on chronic kidney diseasebaseline creatinine 1.5 on prior admissions, 2.8 on this admission Pre renal Creatinine improved to 2.2 with fluid resuscitation -We will continue to trend creatinine -Strict I's and O's -Avoid nephrotoxins Hypernatremia Secondary to her dehydration bolused with 1 L NS in ED, Gave additional 1.5 L here in ICU Gave D5W at 75 mls/hr until bmp at 1300 showed a sodium of 148 which was too rapid of a correction. Held D5W and had patient on 1/2 NSS overnight before resuming D5W this morning at 65 mls/hour will check BMP's q4h Goal for next 24 hours is 142 Hypokalemia Resolved -Monitor with routine BMPs - Iniguez insertedstrict I's and O's ENDO - No history diabetes, hemoglobin A1c 5.8 on prior admission No history of thyroid disease Placed on sliding scale insulin HEME - H&H stable, monitor routine CBCs Patient initially placed on heparin drip while NPO After intubation and OG tube placed, transitioned back to Xarelto. ID - Sepsispatient initially febrile with leukocytosis and elevated lactate Pneumonia seen on CXR and bedside ultrasound Pulmonary secretions from ET tube sent for culture Currently on doxycycline and zosyn Blood Cultures NGTD after 24 urine and Endotracheal suctioned sputum pending LINES/IV ACCESS - Peripheral IV Right side PICC line DVT PROPHYLAXIS - SCDs, patient on Xarelto Patient will need to remain ICU status as she is currently intubated requiring ventilation. While she remains criticall ill her labwork and vitals have improved since admission Hope to extubate when acute septic insult has resolved. (2) Alzheimer's dementia: (3) Ifaxu-ql-xjydgcy kidney injury: (4) Hypoxia: (5) Hypernatremia: (6) Sepsis: (7) AMS (altered mental status): (8) Fever: (9) DVT prophylaxis: (10) Pneumonia: Supervising Physician Co-Signing Physician Notes Dr. Starkey was the resident-physician during care of patient. I separately evaluated patient for baca portions of the history and the exam. I was present during the critical portion of medical decision making, and I discussed the case with the resident. I generally agree with the findings and plan except for any additions/exceptions noted. Patient seen and examined at bedside. Intubated. ABGs on the morning reviewed, pH 7.44 -went down respiratory to 18. Patient breathing over the vent at the rate of 21. Hemodynamically patient is stable. On propofol and fentanyl for sedation. Continue with RASS -1. Continue with antibiotics. Follow-up septic work-up. We will order CT chest abdomen pelvis with p.o. contrast to make sure there is no intra-abdominal pathology causing the sepsis given the patient had right lower quadrant tenderness. Patient sodium today is 152. Goal sodium is 142 in the next 1 to 4 hours. Continue with 65 mL/h of D5 water. Replace electrolytes as needed. BMP every 4 hours. There was a drop in hemoglobin from yesterday, today hemoglobin is 8.8 this is likely because of patient getting IV fluids. We will repeat H&H to make sure it is stable. Patient's A. fib is now rate controlled. We will start oral feedings today. Patient has normal anion gap metabolic acidosis likely from RTA given the urinary gap is positive. If it does not improve will start the patient on standing bicarbonate. I have personally spent 50 minutes of critical care time in the direct management of this patient. This is a life/limb threatening event. This includes time spent evaluating patient, direct bedside care, chart review, placing orders, interpretation of diagnostic studies, discussion with consultants, patient, and/or family members regarding treatment decisions, as well as other required patient management activities. This time is exclusive of all separately billable procedures, and teaching time and separate from and in addition to any other critical care service time. Jade Rogers remains intubated on vent this morning, was able to come down on resp iratory rate to 18 breaths per minute. No family at bedside at this time. Review of Systems Review of Systems: Unobtainable due to endotracheal tube Physical Exam Constitutional: Constitutional: Endotracheal tube in place Eyes: PERRL, conjunctivae normal, anicteric sclerae ENMT: External ear and nose normal, oropharynx normal Neck: trachea midline, no thyromegaly Respiratory: Lungs coarse bilaterally in all alva upon auscultation, symmetrical chest wall movement, patient is tachypneic Cardiovascular: Rate/Rhythm: Regular rate and rhythm Systolic ejection murmur Vessels: no JVD Extremities: no edema, peripheral pulses intact Gastrointestinal (Abdomen): Nondistended, normal bowel sounds Skin: no rashes, warm and dry, diffuse bruising over both arms Genitourinary: Indwelling Iniguez present Neurologic: + does not move all extremities (Does not move left upper extremity, minimal left lower extremity movement) Results & Data Vital Signs (Past 12 Hours) Vital Signs Pulse Resp BP Pulse Ox 10/03/19 05:49 82 26 H 99 10/03/19 05:05 83 104/54 L 98 10/03/19 04:35 82 107/58 L 98 10/03/19 04:05 84 97/48 L 98 10/03/19 03:35 81 116/57 L 98 10/03/19 03:05 82 107/55 L 98 10/03/19 02:37 83 26 H 98 10/03/19 02:35 83 112/57 L 98 10/03/19 02:05 83 114/56 L 100 10/03/19 01:35 83 108/55 L 98 10/03/19 01:05 84 99/55 L 98 10/03/19 00:35 85 88/51 L 98 10/03/19 00:31 81 26 H 98 10/03/19 00:05 85 106/54 L 98 10/03/19 00:00 83 10/02/19 23:35 85 100/53 L 98 10/02/19 23:05 82 112/52 L 98 10/02/19 22:35 83 119/58 L 98 10/02/19 22:05 80 127/59 L 99 10/02/19 21:35 84 108/53 L 99 10/02/19 21:05 90 102/51 L 98 10/02/19 20:35 90 101/50 L 98 10/02/19 20:05 90 105/53 L 98 10/02/19 19:53 88 26 H 99 10/02/19 19:35 83 132/56 L 100 10/02/19 19:05 88 98/50 L 99 10/03/19 04:34 10/03/19 08:08 Resident Activity Tracking Resident Involvement: Resident Care Provided Care Provided: Adult [place] [facility] (1) Fever Fever type: unspecified Qualified Code(s): R50.9 - Fever, unspecified (2) AMS (altered mental status) Altered mental status type: unspecified Qualified Code(s): R41.82 - Altered mental status, unspecified
[2019-10-03] MEDS: PROPOFOL 1,000 MG/100 ML VIAL IV SCH (08:28)
[2019-10-03 08:44] LABS: BUN Creatinine Ratio 26.3 (10-20); Calcium 8.1 mg/dl (8.5-10.1); Creatinine Clr Calc Pharmacy 12.3 ml/min; Est GFR (African American) 22.1; Potassium 3.8 mmol/L (3.5-5.1)
--- NOTE | 2019-10-03 09:14 | Billing Data ---
Date of Service October 03, 2019 Coding Level of Care Code Critical Care 1st 30-74 mins Time Spent (min) 50
--- NOTE | 2019-10-03 09:37 | Pharmacy Report ---
Pharmacy Abx Dose Short Note - Date of Service October 03, 2019 - Assessment & Plan Assessment 89 year old F receiving IV Vancomycin, Zosyn and Doxycycline for treatment of sepsis/pneumonia Patient afebrile overnight, WBCs decreased slightly [id number]-->54960, SCr slightly improved 2.81-->2.22 Spoke with primary team, patient to receive 1 more dose of Vancomycin today and then d/c while zosyn will be extended for a total of 7 days Doxy to continue for 7 days as well No growth to date in BCx, Urine and sputum cx's pending Day # 2 of antimicrobial therapy Plan Vancomycin * Random level this AM was 12.1 mcg/mL approximately 24 hours post 25 mg/kg loading dose * Will give one time IV dose of 750 mg (16 mg/kg) this AM to complete 48 hours of empiric therapy * No repeat level needed Zosyn * Continue aggressive dosing at 4.5 g IV every 12 hours for eCrCl < 20 mL/min Doxycycline * Continue 100 mg IV every 12 hours Pharmacy will continue to follow and will adjust dose/frequency as necessary. Thank you.
[2019-10-03] MEDS: ASPIRIN 81 MG CHEW PO SCH (09:52)
[2019-10-03] MEDS: METOPROLOL TARTRATE 25 MG TAB PO SCH ×2 (09:52→22:07)
[2019-10-03] MEDS ORDERED: VANCOMYCIN HCL 750 MG in SODIUM CHLORIDE 0.9% 250 ML IV SCH (10:00)
--- NOTE | 2019-10-03 10:51 | Hospitalist Progress Note ---
Date of Service October 03, 2019 Assessment & Plan (1) Atrial fibrillation with RVR: 89-year-old female was admitted on 02 October 2019 for tachycardia, hypernatremia, dehydration, acute on chronic kidney injury, and possible ongoing aspiration pneumonia. Patient is relatively nonverbal at baseline and is noncontributory to history. A. fib RVR: - patient with history of PAF - Given IV metoprolol with improvement in rate and hemodynamics; continue oral metoprolol to IV - Patient on Xarelto, will continue - Monitor on telemetry: consider IV Cardizem drip if remains uncontrolled Sepsis: - patient febrile with leukocytosis and elevated lactate - Pulmonary or urine source likely, cannot rule out abdominal source at this time - Patient diagnosed 3 days ago with aspiration pneumonia and did 3 days of azithromycin - Received Levaquin and Vanco in ED; Zosyn added to cover Pseudomonas - Blood Cultures NGTD after 24 urine - Endotracheal suctioned sputum pending Altered mental status: - 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, vascular disease, prior CVA in the setting of UTI/sepsis - Patient functionally nonverbal at baseline - Ammonia within normal limits, CO2 30 - CT head negative for acute process - BUN mildly elevated - Frequent neuro exams, monitor Acute hypoxic respiratory failure: - likely secondary to aspiration pneumonia - CXR showed right basilar opacity consistent with pneumonia versus atelectasis - No history COPD or asthma - See antibiotic regimen below - Patient currently intubated, with improving blood gases overnight - PRN DuoNeb - Infleunza PCR negative - Continuous to monitor oxygen saturations Abdominal tenderness: - right lower quadrant tenderness with deep palpation - consider CT abdomen when patient stable to rule out diverticulitis, appendicitis - Zosyn added to antibiotic regimen Acute on chronic kidney disease: - baseline creatinine 1.5 on prior admissions, 2.8 on this admission - continue hydration - Strict I's and O's - Avoid nephrotoxins Hypernatremia/Hypokalemia: - patient euvolemic and bolused with 1 L NS in ED, will give additional 1 L NS and reassess - will follow with D5W with 24-hour goal to reduce sodium by 10 mEq from initial 157, this AM trended down to 148 - Every 4 hour BMPs Code status: Full code. Diet: NPO except meds. DVT prophy: Xarelto. Disbo: Critically ill. At baseline is resident of [facility]. 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 Discussed with PGY1 Dr. Gilbert Zarate and agree with findings and plan as documented in the note. Any exceptions or clarifications are listed here: none. Events of last 24 hours noted. Patient intubated for ongoing respiratory distress. Underwent CT chest/abd/pelvis this am; CT chest with secretions in RLL bronchus and b/l lower lobe opacities; RUL opacity also seen. CT abd/pelvis with at least partial SBO; fecal impaction present as well. Gall bladder distended. During my bedside rounds was intubated and on sedation. Eyes were open; did not follow commands. exam: gen - eyes open, does not follow commands, no obvious pain or discomfort mouth - ETT, enteric tubes present neck - no JVD heart - irregular, s1 s2 lungs - decreased BS bases R>L abd - distended, nontender, BS+, no HSM ext - no edema, pulses 2+ b/l labs reviewed - Cr improving CT chest/abd/pelvis reviewed A/P: 1. acute hypoxic respiratory failure - 2nd to RLL aspiration pneumonia; cont IV abx. Now intubated; defer management to pulmonary/critical care. Zosyn; doxy (atypical coverage). 2. hypernatremic dehydration - improved w/ fluids. 3. partial SBO - possible transition point RLQ. Cannot rule out that this is ileus in context of severe fecal impaction. Would perform disimpaction (manually, enemas). Continue enteric tube decompression. Would obtain KUB x-ray in am. 4. 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 Serial BMP. 5. sepsis - 2nd to #1 - supportive care, treat pneumonia, etc. 6. a. fib with RVR - improved; cont BB, cont xarelto. 7. RLL pneumonia - likely due to aspiration in setting of dysphagia from dementia. 8. dementia - severe at baseline by history. Documented By: Russel Baca MD Subjective Patient was intubated last night, for progressive work of breathing and fatiguing. Patient remains intubated this morning, and is sedated. Review of Systems Review of Systems: Unobtainable due to endotracheal tube Physical Exam Constitutional: + ill appearing Eyes: PERRL, conjunctivae normal, anicteric sclerae Respiratory: symmetric chest movement Auscultation: + crackles and + wheezes; no rales intubated Cardiovascular: Rate/Rhythm: regular rate; + abnormal rhythm Heart Sounds: no gallop, no murmur and no cardiac rub Extremities: no edema Gastrointestinal (Abdomen): Inspection/Auscultation: normal bowel sounds Percussion/Palpation: no hepatosplenomegaly and no abdominal mass Results & Data Vital Signs (Past 12 Hours) Vital Signs Pulse Resp BP Pulse Ox 10/03/19 07:45 84 20 98 10/03/19 05:49 82 26 H 99 10/03/19 05:05 83 104/54 L 98 10/03/19 04:35 82 107/58 L 98 10/03/19 04:05 84 97/48 L 98 10/03/19 03:35 81 116/57 L 98 10/03/19 03:05 82 107/55 L 98 10/03/19 02:37 83 26 H 98 10/03/19 02:35 83 112/57 L 98 10/03/19 02:05 83 114/56 L 100 10/03/19 01:35 83 108/55 L 98 10/03/19 01:05 84 99/55 L 98 10/03/19 00:35 85 88/51 L 98 10/03/19 00:31 81 26 H 98 10/03/19 00:05 85 106/54 L 98 10/03/19 00:00 83 10/02/19 23:35 85 100/53 L 98 10/02/19 23:05 82 112/52 L 98 Laboratory Results 10/03/19 10/03/19 10/03/19 Range/Units 12:13 11:01 11:01 WBC (4.8-10.8) K/uL RBC (4.2-5.4) M/uL Hgb 9.8 L (12.0-16.0) g/dL Hct 31.5 L (37-47) % MCV (80-100) fL MCH (25-34) pg MCHC (32-36) g/dL RDW Std Deviation (36.4-46.3) fL RDW Coeff of Boris (11.5-14.5) % Plt Count (130-400) K/uL MPV (7.4-10.4) fL Immature Gran % (Auto) % Neut % (Auto) % Lymph % (Auto) % [place] % (Auto) % Eos % (Auto) % Baso % (Auto) % Immature Gran # (Auto) (0.00-0.02) K/uL Neut # (Auto) (1.4-6.5) K/uL Lymph # (Auto) (1.2-3.4) K/uL [place] # (Auto) (0.11-0.59) K/uL Eos # (Auto) (0-0.5) K/uL Baso # (Auto) (0-0.2) K/uL Absolute Nucleated RBC (0-0) K/uL Nucleated RBC % (auto) % Echinocytes Sample Site POC pH (7.35-7.45) POC pCO2 (35-46) mmHg POC pO2 (80-95) mmHg POC HCO3 (19-24) lena/L POC Total CO2 (24-31) mEq/l POC Base Excess (-9-1.8) lena/L POC ABG O2 Sat (90-95) % Robinson Test O2 Delivery Device POC O2 Rate Minute Ventilation POC FiO2 % Tidal Volume PEEP Sodium 148 H (136-145) mmol/L Potassium 3.8 (3.5-5.1) mmol/L Chloride 121 H (98-107) mmol/L Carbon Dioxide 19 L (21-32) mmol/L Anion Gap 7.0 (3-11) BUN 57 H (7-18) mg/dl Creatinine 2.24 H (0.6-1.2) mg/dl Est Cr Clr Drug Dosing 12.2 ml/min Est GFR ( Amer) 21.8 Est GFR (Non-Af Amer) 18.8 BUN/Creatinine Ratio 25.4 H (10-20) Glucose 154 H (70-99) mg/dl POC Glucose 162 H (70-99) Calcium 8.3 L (8.5-10.1) mg/dl Total Bilirubin (0.2-1) mg/dl AST (15-37) U/L ALT (12-78) U/L Alkaline Phosphatase (45-117) U/L Total Protein (6.4-8.2) gm/dl Albumin (3.4-5.0) gm/dl Globulin (2.5-4.0) gm/dl Albumin/Globulin Ratio (0.9-2) Random Vancomycin Influenza Type A (PCR) (Neg) Influenza Type B (PCR) (Neg) Bld Cult Staph aureus PCR (Negative) Blood Culture MRSA PCR (Negative) 10/03/19 10/03/19 10/03/19 Range/Units 08:08 08:08 05:42 WBC (4.8-10.8) K/uL RBC (4.2-5.4) M/uL Hgb (12.0-16.0) g/dL Hct (37-47) % MCV (80-100) fL MCH (25-34) pg MCHC (32-36) g/dL RDW Std Deviation (36.4-46.3) fL RDW Coeff of Boris (11.5-14.5) % Plt Count (130-400) K/uL MPV (7.4-10.4) fL Immature Gran % (Auto) % Neut % (Auto) % Lymph % (Auto) % [place] % (Auto) % Eos % (Auto) % Baso % (Auto) % Immature Gran # (Auto) (0.00-0.02) K/uL Neut # (Auto) (1.4-6.5) K/uL Lymph # (Auto) (1.2-3.4) K/uL [place] # (Auto) (0.11-0.59) K/uL Eos # (Auto) (0-0.5) K/uL Baso # (Auto) (0-0.2) K/uL Absolute Nucleated RBC (0-0) K/uL Nucleated RBC % (auto) % Echinocytes Sample Site R Radial POC pH 7.45 (7.35-7.45) POC pCO2 20 L (35-46) mmHg POC pO2 87 (80-95) mmHg POC HCO3 14 L (19-24) lena/L POC Total CO2 14 L (24-31) mEq/l POC Base Excess -10.0 L (-9-1.8) lena/L POC ABG O2 Sat 97.0 H (90-95) % Robinson Test Pass O2 Delivery Device Ventilator POC O2 Rate 26 Minute Ventilation 12 POC FiO2 35 % Tidal Volume 450 PEEP 5 Sodium 152 H (136-145) mmol/L Potassium 3.8 (3.5-5.1) mmol/L Chloride 125 H (98-107) mmol/L Carbon Dioxide 19 L (21-32) mmol/L Anion Gap 8.0 (3-11) BUN 58 H (7-18) mg/dl Creatinine 2.22 H (0.6-1.2) mg/dl Est Cr Clr Drug Dosing 12.3 ml/min Est GFR ( Amer) 22.1 Est GFR (Non-Af Amer) 19.0 BUN/Creatinine Ratio 26.3 H (10-20) Glucose 143 H (70-99) mg/dl POC Glucose (70-99) Calcium 8.1 L (8.5-10.1) mg/dl Total Bilirubin (0.2-1) mg/dl AST (15-37) U/L ALT (12-78) U/L Alkaline Phosphatase (45-117) U/L Total Protein (6.4-8.2) gm/dl Albumin (3.4-5.0) gm/dl Globulin (2.5-4.0) gm/dl Albumin/Globulin Ratio (0.9-2) Random Vancomycin 12.1 Influenza Type A (PCR) (Neg) Influenza Type B (PCR) (Neg) Bld Cult Staph aureus PCR (Negative) Blood Culture MRSA PCR (Negative) 10/03/19 10/03/19 10/03/19 Range/Units 05:40 04:34 04:34 WBC (4.8-10.8) K/uL RBC (4.2-5.4) M/uL Hgb (12.0-16.0) g/dL Hct (37-47) % MCV (80-100) fL MCH (25-34) pg MCHC (32-36) g/dL RDW Std Deviation (36.4-46.3) fL RDW Coeff of Boris (11.5-14.5) % Plt Count (130-400) K/uL MPV (7.4-10.4) fL Immature Gran % (Auto) % Neut % (Auto) % Lymph % (Auto) % [place] % (Auto) % Eos % (Auto) % Baso % (Auto) % Immature Gran # (Auto) (0.00-0.02) K/uL Neut # (Auto) (1.4-6.5) K/uL Lymph # (Auto) (1.2-3.4) K/uL [place] # (Auto) (0.11-0.59) K/uL Eos # (Auto) (0-0.5) K/uL Baso # (Auto) (0-0.2) K/uL Absolute Nucleated RBC (0-0) K/uL Nucleated RBC % (auto) % Echinocytes Sample Site POC pH (7.35-7.45) POC pCO2 (35-46) mmHg POC pO2 (80-95) mmHg POC HCO3 (19-24) lena/L POC Total CO2 (24-31) mEq/l POC Base Excess (-9-1.8) lena/L POC ABG O2 Sat (90-95) % Robinson Test O2 Delivery Device POC O2 Rate Minute Ventilation POC FiO2 % Tidal Volume PEEP Sodium 152 H (136-145) mmol/L Potassium 3.8 (3.5-5.1) mmol/L Chloride 127 H (98-107) mmol/L Carbon Dioxide 19 L (21-32) mmol/L Anion Gap 6.0 (3-11) BUN 55 H (7-18) mg/dl Creatinine 2.22 H (0.6-1.2) mg/dl Est Cr Clr Drug Dosing 12.3 ml/min Est GFR ( Amer) 22.1 Est GFR (Non-Af Amer) 19.0 BUN/Creatinine Ratio 24.9 H (10-20) Glucose 124 H (70-99) mg/dl POC Glucose 130 H (70-99) Calcium 7.6 L (8.5-10.1) mg/dl Total Bilirubin 0.4 (0.2-1) mg/dl AST 14 L (15-37) U/L ALT 15 (12-78) U/L Alkaline Phosphatase 73 (45-117) U/L Total Protein 5.9 L (6.4-8.2) gm/dl Albumin 2.2 L (3.4-5.0) gm/dl Globulin 3.7 (2.5-4.0) gm/dl Albumin/Globulin Ratio 0.6 L (0.9-2) Random Vancomycin Cancelled Influenza Type A (PCR) (Neg) Influenza Type B (PCR) (Neg) Bld Cult Staph aureus PCR (Negative) Blood Culture MRSA PCR (Negative) 10/03/19 10/03/19 10/03/19 Range/Units 04:34 00:28 00:27 WBC 23.78 H (4.8-10.8) K/uL RBC 3.17 L (4.2-5.4) M/uL Hgb 8.8 L (12.0-16.0) g/dL Hct 27.8 L (37-47) % MCV 87.7 (80-100) fL MCH 27.8 (25-34) pg MCHC 31.7 L (32-36) g/dL RDW Std Deviation 49.6 H (36.4-46.3) fL RDW Coeff of Boris 15.5 H (11.5-14.5) % Plt Count 256 (130-400) K/uL MPV 8.7 (7.4-10.4) fL Immature Gran % (Auto) 1.1 % Neut % (Auto) 92.7 % Lymph % (Auto) 3.5 % [place] % (Auto) 2.7 % Eos % (Auto) 0.0 % Baso % (Auto) 0.0 % Immature Gran # (Auto) 0.26 H (0.00-0.02) K/uL Neut # (Auto) 22.02 H (1.4-6.5) K/uL Lymph # (Auto) 0.84 L (1.2-3.4) K/uL [place] # (Auto) 0.64 H (0.11-0.59) K/uL Eos # (Auto) 0.01 (0-0.5) K/uL Baso # (Auto) 0.01 (0-0.2) K/uL Absolute Nucleated RBC 0.02 H (0-0) K/uL Nucleated RBC % (auto) 0.1 % Echinocytes 2+ Sample Site POC pH (7.35-7.45) POC pCO2 (35-46) mmHg POC pO2 (80-95) mmHg POC HCO3 (19-24) lena/L POC Total CO2 (24-31) mEq/l POC Base Excess (-9-1.8) lena/L POC ABG O2 Sat (90-95) % Robinson Test O2 Delivery Device POC O2 Rate Minute Ventilation POC FiO2 % Tidal Volume PEEP Sodium 154 H (136-145) mmol/L Potassium 3.9 D (3.5-5.1) mmol/L Chloride 129 H (98-107) mmol/L Carbon Dioxide 19 L (21-32) mmol/L Anion Gap 6.0 (3-11) BUN 58 H (7-18) mg/dl Creatinine 2.29 H (0.6-1.2) mg/dl Est Cr Clr Drug Dosing 12.0 ml/min Est GFR ( Amer) 21.2 Est GFR (Non-Af Amer) 18.3 BUN/Creatinine Ratio 25.5 H (10-20) Glucose 106 H (70-99) mg/dl POC Glucose 106 H (70-99) Calcium 7.8 L (8.5-10.1) mg/dl Total Bilirubin (0.2-1) mg/dl AST (15-37) U/L ALT (12-78) U/L Alkaline Phosphatase (45-117) U/L Total Protein (6.4-8.2) gm/dl Albumin (3.4-5.0) gm/dl Globulin (2.5-4.0) gm/dl Albumin/Globulin Ratio (0.9-2) Random Vancomycin Influenza Type A (PCR) (Neg) Influenza Type B (PCR) (Neg) Bld Cult Staph aureus PCR (Negative) Blood Culture MRSA PCR (Negative) 10/02/19 10/02/19 10/02/19 Range/Units 19:38 16:34 15:47 WBC (4.8-10.8) K/uL RBC (4.2-5.4) M/uL Hgb (12.0-16.0) g/dL Hct (37-47) % MCV (80-100) fL MCH (25-34) pg MCHC (32-36) g/dL RDW Std Deviation (36.4-46.3) fL RDW Coeff of Boris (11.5-14.5) % Plt Count (130-400) K/uL MPV (7.4-10.4) fL Immature Gran % (Auto) % Neut % (Auto) % Lymph % (Auto) % [place] % (Auto) % Eos % (Auto) % Baso % (Auto) % Immature Gran # (Auto) (0.00-0.02) K/uL Neut # (Auto) (1.4-6.5) K/uL Lymph # (Auto) (1.2-3.4) K/uL [place] # (Auto) (0.11-0.59) K/uL Eos # (Auto) (0-0.5) K/uL Baso # (Auto) (0-0.2) K/uL Absolute Nucleated RBC (0-0) K/uL Nucleated RBC % (auto) % Echinocytes Sample Site POC pH (7.35-7.45) POC pCO2 (35-46) mmHg POC pO2 (80-95) mmHg POC HCO3 (19-24) lena/L POC Total CO2 (24-31) mEq/l POC Base Excess (-9-1.8) lena/L POC ABG O2 Sat (90-95) % Robinson Test O2 Delivery Device POC O2 Rate Minute Ventilation POC FiO2 % Tidal Volume PEEP Sodium 155 H 155 H (136-145) mmol/L Potassium 3.3 L D 3.9 (3.5-5.1) mmol/L Chloride 128 H 128 H (98-107) mmol/L Carbon Dioxide 19 L 20 L (21-32) mmol/L Anion Gap 8.0 7.0 (3-11) BUN 59 H 57 H (7-18) mg/dl Creatinine 2.30 H 2.23 H (0.6-1.2) mg/dl Est Cr Clr Drug Dosing 11.9 12.3 ml/min Est GFR ( Amer) 21.1 21.9 Est GFR (Non-Af Amer) 18.2 18.9 BUN/Creatinine Ratio 25.8 H 25.7 H (10-20) Glucose 115 H 144 H (70-99) mg/dl POC Glucose 124 H (70-99) Calcium 7.5 L 7.4 L (8.5-10.1) mg/dl Total Bilirubin (0.2-1) mg/dl AST (15-37) U/L ALT (12-78) U/L Alkaline Phosphatase (45-117) U/L Total Protein (6.4-8.2) gm/dl Albumin (3.4-5.0) gm/dl Globulin (2.5-4.0) gm/dl Albumin/Globulin Ratio (0.9-2) Random Vancomycin Influenza Type A (PCR) (Neg) Influenza Type B (PCR) (Neg) Bld Cult Staph aureus PCR (Negative) Blood Culture MRSA PCR (Negative) 10/02/19 10/02/19 10/02/19 Range/Units 13:52 13:20 03:24 WBC (4.8-10.8) K/uL RBC (4.2-5.4) M/uL Hgb (12.0-16.0) g/dL Hct (37-47) % MCV (80-100) fL MCH (25-34) pg MCHC (32-36) g/dL RDW Std Deviation (36.4-46.3) fL RDW Coeff of Boris (11.5-14.5) % Plt Count (130-400) K/uL MPV (7.4-10.4) fL Immature Gran % (Auto) % Neut % (Auto) % Lymph % (Auto) % [place] % (Auto) % Eos % (Auto) % Baso % (Auto) % Immature Gran # (Auto) (0.00-0.02) K/uL Neut # (Auto) (1.4-6.5) K/uL Lymph # (Auto) (1.2-3.4) K/uL [place] # (Auto) (0.11-0.59) K/uL Eos # (Auto) (0-0.5) K/uL Baso # (Auto) (0-0.2) K/uL Absolute Nucleated RBC (0-0) K/uL Nucleated RBC % (auto) % Echinocytes Sample Site R Radial POC pH 7.32 L (7.35-7.45) POC pCO2 30 L (35-46) mmHg POC pO2 71 L (80-95) mmHg POC HCO3 16 L (19-24) lena/L POC Total CO2 16 L (24-31) mEq/l POC Base Excess -11.0 L (-9-1.8) lena/L POC ABG O2 Sat 93.0 (90-95) % Robinson Test Pass O2 Delivery Device Cannula POC O2 Rate Minute Ventilation POC FiO2 % Tidal Volume PEEP Sodium (136-145) mmol/L Potassium (3.5-5.1) mmol/L Chloride (98-107) mmol/L Carbon Dioxide (21-32) mmol/L Anion Gap (3-11) BUN (7-18) mg/dl Creatinine (0.6-1.2) mg/dl Est Cr Clr Drug Dosing ml/min Est GFR ( Amer) Est GFR (Non-Af Amer) BUN/Creatinine Ratio (10-20) Glucose (70-99) mg/dl POC Glucose (70-99) Calcium (8.5-10.1) mg/dl Total Bilirubin (0.2-1) mg/dl AST (15-37) U/L ALT (12-78) U/L Alkaline Phosphatase (45-117) U/L Total Protein (6.4-8.2) gm/dl Albumin (3.4-5.0) gm/dl Globulin (2.5-4.0) gm/dl Albumin/Globulin Ratio (0.9-2) Random Vancomycin Influenza Type A (PCR) Neg for Influ A (Neg) Influenza Type B (PCR) Neg for Influ B (Neg) Bld Cult Staph aureus PCR Negative (Negative) Blood Culture MRSA PCR Negative (Negative) Medications Administered Current Inpatient Medications Albuterol (Duoneb) 3 ml NEB Q4R PRN PRN Reason: Shortness Of Breath Or Wheezing Stop: 11/01/19 10:59 Aspirin (Aspirin Chew) 81 mg PO DAILY [facility] Stop: 11/01/19 08:59 Last Admin: 10/03/19 09:52 Dose: 81 mg Documented by: Dextrose (Dextrose 50%) 25 - 50 ml IV UD PRN; Protocol PRN Reason: Hypoglycemia Protocol Stop: 11/01/19 08:44 Fentanyl Citrate (Fentanyl Citrate) 25 mcg IV ONE PRN PRN Reason: Pain Not Controlled by Drip Stop: 10/16/19 15:45 Glucagon (Glucagen) 1 mg IM UD PRN; Protocol PRN Reason: Hypoglycemia Protocol Stop: 11/01/19 08:44 Glucose (Glucose 40%) 15 - 30 gm PO UD PRN; Protocol PRN Reason: Hypoglycemia Protocol Stop: 11/01/19 08:44 Glucose (Dex4 Glucose) 4 - 8 tabs PO UD PRN; Protocol PRN Reason: Hypoglycemia Protocol Stop: 11/01/19 08:44 Piperacillin Sod/Tazobactam (Sod 4.5 gm/ Dextrose) 120 mls @ 30 mls/hr IV Q12H [facility]; Protocol Stop: 10/09/19 11:59 Last Admin: 10/03/19 11:18 Dose: 30 mls/hr Documented by: Doxycycline Hyclate 100 mg/ (Dextrose) 110 mls @ 50 mls/hr IV Q12H [facility] Stop: 10/09/19 10:59 Last Infusion: 10/03/19 12:15 Dose: Infused Documented by: Fentanyl Citrate (Fentanyl Drip) 1,250 mcg in 250 mls @ 3 mls/hr IV .Q24H [facility]; Protocol Stop: 10/16/19 15:45 Last Titration: 10/03/19 07:04 Dose: 15 mcg/hr, 3 mls/hr Documented by: Propofol (Diprivan) 1,000 mg in 100 mls @ 5.544 mls/hr IV .Q18H3M [facility]; Protocol Stop: 10/05/19 15:45 Last Admin: 10/03/19 08:28 Dose: 20 mcg/kg/min, 5.5 mls/hr Documented by: Dextrose (D5w) 1,000 mls @ 65 mls/hr IV .[id number] [facility] Stop: 11/02/19 05:14 Last Admin: 10/03/19 05:31 Dose: 65 mls/hr Documented by: Insulin Aspart (Novolog Flexpen) 0 units SC Q6 [facility] Stop: 11/01/19 08:44 Last Admin: 10/03/19 12:15 Dose: Not Given Documented by: Latanoprost (Xalatan Oph) 1 drops OPB HS [facility] Stop: 11/01/19 20:59 Last Admin: 10/02/19 20:50 Dose: 1 drops Documented by: Metoprolol Tartrate (Lopressor) 12.5 mg PO BID [facility] Stop: 11/01/19 20:59 Last Admin: 10/03/19 09:52 Dose: Not Given Documented by: Miscellaneous (Icu Protocol For Hyperglycemia) 1 ea N/A PRN PRN; Protocol PRN Reason: Hyperglycemia Protocol Stop: 10/04/19 06:02 Miscellaneous (Carbohydrates For Hypoglycemia) 15 - 30 gm PO UD PRN PRN Reason: Hypoglycemia Treatment Stop: 11/01/19 08:44 Miscellaneous Information (Consult) 1 ea N/A UD PRN PRN Reason: Consult Stop: 10/03/19 23:59 Miscellaneous Information (Consult) 1 ea N/A UD PRN PRN Reason: Consult Stop: 11/01/19 06:02 Rivaroxaban (Xarelto) 15 mg PO QDD [facility] Stop: 11/01/19 16:29 Last Admin: 10/02/19 17:54 Dose: 15 mg Documented by: Venlafaxine HCl (Effexor Extended Release) 150 mg PO DAILY [facility] Stop: 11/01/19 08:59 Last Admin: 10/02/19 07:52 Dose: Not Given Documented by: Resident Activity Tracking Resident Involvement: Resident Care Provided Care Provided: Adult Hospital Medicine
[2019-10-03 11:10] LABS: Hematocrit (blood only) 31.5 % (37-47); Hemoglobin 9.8 g/dL (12.0-16.0)
--- NOTE | 2019-10-03 11:17 | CT Scan Report ---
CT OF THE CHEST WITHOUT IV CONTRAST CLINICAL HISTORY: Hypoxemic respiratory Failure COMPARISON STUDY: Chest radiographs October 02, 2019 and October 03, 2019. TECHNIQUE: Axial images of the chest were obtained without IV contrast. Images were reviewed in the axial, sagittal, and coronal planes. IV contrast was not administered for this examination. Automat ed exposure control was utilized for the study. A dose lowering technique was utilized adhering to t he principles of ALARA. FINDINGS: Endotracheal tube tip is just above the magdy. There is no pneumothorax. Mild emphysema i s present. Small right and trace left pleural effusions are noted. Tip of nasogastric tube is within the body of the stomach. Mild interlobular septal thickening is noted. There are mild airspace opacit ies within the right upper lobe and bilateral lower lobes. There is bronchial wall thickening with se cretions within right lower lobe segmental bronchi. No thoracic lymphadenopathy is present. Abdomen a nd pelvis will be reported separately. No suspicious osseous lesions are noted. Several old lower tho racic spine compression fractures are present. IMPRESSION: 1. Mild interstitial pulmonary edema. Mild emphysema. 2. Small right and trace left pleural effusions. Associated bibasilar basilar opacities favor atelect asis. An infectious process could appear similar. Secretions within right lower lobe segmental bronch i. 3. Mild right upper lobe airspace opacity. 4. Moderate cardiomegaly. Extensive coronary artery calcification. 5. Tip of endotracheal tube just above the magdy. ACT 112: Negative or not required by law. Electronically signed by: Mahin Moralez M.D. 10/03/2019 11:16 AM
[2019-10-03 11:27] LABS: BUN Creatinine Ratio 25.4 (10-20); Calcium 8.3 mg/dl (8.5-10.1); Creatinine Clr Calc Pharmacy 12.2 ml/min; Est GFR (African American) 21.8; Est GFR (Non-African American) 18.8; Potassium 3.8 mmol/L (3.5-5.1)
--- NOTE | 2019-10-03 11:33 | CT Scan Report ---
CT OF THE ABDOMEN AND PELVIS WITH ORAL CONTRAST CLINICAL HISTORY: Abdominal tenderness, sepsis COMPARISON STUDY: CT of the abdomen and pelvis August 21, 2017. Doppler renal ultrasound May. TECHNIQUE: Axial images of the abdomen and pelvis were obtained without IV contrast. Oral contrast wa s administered. Automated exposure control was utilized for the study. A dose lowering technique was utilized adhering to the principles of ALARA. FINDINGS: The chest will be reported separately. No pneumatosis, free air or portal venous gas is pre sent. Evaluation of the abdomen and pelvis is suboptimal on this unenhanced examination. 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 Unenhanced images of the liver, spleen, adrenal glands and pancreas are unremar kable. The gallbladder is mildly distended. There are gallstones within the gallbladder. There is no left hydronephrosis. The majority of the small bowel is moderately dilated and fluid-filled. 2 possib le transition points within the right lower quadrant are noted within the distal ileum. The distal sm all bowel is decompressed. A large amount stool within the rectum is noted. There is mild adjacent in filtration. Left hip arthroplasty is noted. Iniguez balloon is present within the bladder which is genevieve apsed. Apparent endometrial thickening has developed since prior CT. There are no suspicious osseous lesions. A small hiatal hernia is present. IMPRESSION: 1. Moderately distended fluid-filled small bowel with 2 possible transition points within the right l ower quadrant. The findings suggest a moderate grade partial small bowel obstruction. Nasogastric tub e in place. 2. Large amount stool within the rectum with mild perirectal infiltration which may reflect stercoral colitis. 3. Cholelithiasis and moderate gallbladder distention. Right upper quadrant ultrasound could be obtai yulia to evaluate for possible acute cholecystitis. 4. Apparent endometrial thickening. Differential considerations include malignancy, hyperplasia or ca vity distended with blood products. This could be correlated with history of postmenopausal bleeding and pelvic ultrasound. 5. No significant change in a 3.4 cm infrarenal abdominal aortic aneurysm. ACT 112: Negative or not required by law. Electronically signed by: Mahin Moralez M.D. 10/03/2019 11:32 AM
[2019-10-03] MEDS: RIVAROXABAN 15 MG TAB PO SCH (15:26)
[2019-10-03 16:28] LABS: Calcium 7.6 mg/dl (8.5-10.1); Creatinine Clr Calc Pharmacy 12.9 ml/min; Est GFR (African American) 23.2; Potassium 3.6 mmol/L (3.5-5.1)
[2019-10-03] MEDS: fentaNYL DRIP 1,250 MCG/250 ML BAG IV SCH (17:51)
[2019-10-03 20:35] LABS: BUN Creatinine Ratio 27.2 (10-20); Calcium 7.5 mg/dl (8.5-10.1); Creatinine Clr Calc Pharmacy 13.6 ml/min; Est GFR (African American) 24.7; Est GFR (Non-African American) 21.3; Potassium 3.5 mmol/L (3.5-5.1)
--- NOTE | 2019-10-03 20:39 | Billing Data ---
Date of Service October 03, 2019 Coding Level of Care Code 11320 Subseq Hosp Care Lvl 1
--- NOTE | 2019-10-03 20:48 | Surgery Consultation ---
Date of Consultation October 03, 2019 Assessment & Plan (1) SBO (spina bifida occulta): pt is a 89 year-old female who was admitted to ICU for tachycardia, CT scan finding - possible partial SBO IMP: partial SBO pt passed BM, may send C- diff agree with conservative treatment, repeat labs in am, will F/U Present on Admission?: Yes Supervising Physician Co-Signing Physician Notes Dr. Starkey was the resident-physician during care of patient. I separately evaluated patient for baca portions of the history and the exam. I was present during the critical portion of medical decision making, and I discussed the case with the resident. I generally agree with the findings and plan except for any additions/exceptions noted. Patient seen and examined at bedside. Intubated. ABGs on the morning reviewed, pH 7.44 -went down respiratory to 18. Patient breathing over the vent at the rate of 21. Hemodynamically patient is stable. On propofol and fentanyl for sedation. Continue with RASS -1. Continue with antibiotics. Follow-up septic work-up. We will order CT chest abdomen pelvis with p.o. contrast to make sure there is no intra-abdominal pathology causing the sepsis given the patient had right lower quadrant tenderness. Patient sodium today is 152. Goal sodium is 142 in the next 1 to 4 hours. Continue with 65 mL/h of D5 water. Replace electrolytes as needed. BMP every 4 hours. There was a drop in hemoglobin from yesterday, today hemoglobin is 8.8 this is likely because of patient getting IV fluids. We will repeat H&H to make sure it is stable. Patient's A. fib is now rate controlled. We will start oral feedings today. Patient has normal anion gap metabolic acidosis likely from RTA given the urinary gap is positive. If it does not improve will start the patient on standing bicarbonate. I have personally spent 50 minutes of critical care time in the direct management of this patient. This is a life/limb threatening event. This inclu juan time spent evaluating patient, direct bedside care, chart review, placing orders, interpretation of diagnostic studies, discussion with consultants, patient, and/or family members regarding treatment decisions, as well as other required patient management activities. This time is exclusive of all separately billable procedures, and teaching time and separate from and in addition to any other critical care service time. History of Present Illness Attending Physician: Russel Baca CC: tachycardia 89-year-old female was brought in by EMS from [facility]. Patient herself has a history of mixed Alzheimer's and vascular dementia. Although she will mumble at times, she is functionally nonverbal and thus noncontributory to history. The below history is based on the ED's notes, discussion with ED staff, and discussion with patient's family at bedside. Reportedly, patient was diagnosed with aspiration pneumonia following a chest x- ray about 4 days ago. She was started on azithromycin 2 to 3 days ago. However, she continues to have fevers, as high as 103 this evening. EMS was called and she apparently was given Tylenol and a DuoNeb. She was also reported to have an oxygen saturation of 85% on room air which improved to 95% after being placed on supplemental oxygen. - Past medical history includes hypertension, hyperlipidemia, mixed Alzheimer's and vascular dementia, paroxysmal A. fib, osteoporosis, rhabdomyolysis, CVA, breast adenocarcinoma - Past surgical history includes right nephrectomy, right breast lumpectomy, appendectomy, left hip hemiarthroplasty - Social history includes no reported previous smoking or alcohol use. Lives at [facility]. I (Pawan Torrez MD ) got a call for consult SOB, I reviewed pt's H/P , labs, CT scan, pt passed BM 8 times today, per nurse, pt is still intubated on the vent. Allergies Allergy/AdvReac Type Severity Reaction Status Date / Time morphine AdvReac Unknown hallucinati Verified 10/02/19 03:50 ons Home Medications Home Medications Medication Instructions Recorded Confirmed Type Combivent Respimat 20 - 100 mcg INHALATION Q6H PRN 06/18/18 10/02/19 History Xarelto 15 mg PO DAILY 06/18/18 10/02/19 History acetaminophen [Tylenol] 650 mg PO Q6H PRN 06/18/18 10/02/19 History amlodipine [Norvasc] 10 mg PO DAILY 06/18/18 10/02/19 History aspirin [Aspirin Childrens] 81 mg PO DAILY 06/18/18 10/02/19 History atorvastatin [Lipitor] 20 mg PO DAILY 06/18/18 10/02/19 History metoprolol tartrate 12.5 mg PO BID 06/18/18 10/02/19 History lorazepam 0.25 mg PO Q8 08/16/18 10/02/19 History azithromycin 250 mg PO DAILY 10/02/19 10/02/19 History hydrocortisone 2.5 % [place] Q8 PRN 10/02/19 10/02/19 History ipratropium-albuterol 3 ml INHALATION Q4 PRN 10/02/19 10/02/19 History latanoprost 1 drp OPB DAILY 10/02/19 10/02/19 History menthol-zinc oxide [Calmoseptine] 1 applic TOPICAL QS 10/02/19 10/02/19 History venlafaxine 150 mg PO DAILY 10/02/19 10/02/19 History Patient History Medical History Acute encephalopathy H/0 Acute kidney injury H/0 Altered mental status Atrial fibrillation Chronic back pain CVA (cerebral vascular accident) Dysphagia History of fall History of fracture of left hip History of fracture of right hip Hyperlexia (Chronic) Hyperlipidemia Hypertension (Chronic) Iron deficiency anemia Osteoporosis Osteoporosis Rhabdomyolysis H/O Surgical History History of cataract surgery LEFT History of hip surgery LEFT Family History (Updated 10/02/19 @ 03:47 by Tito Martinez) Other Family history non-contributory Social History Preferred Language: Maltese Communication Ability: Unable Licensed Nuclear Control Room Operator Required: No Beliefs That Will Affect Care: None Current Living Situation: [facility] Current Living Situation Comment: RESIDENT AT [facility] Feels Safe at Home: Yes Smoking Status: Former smoker Tobacco Type: cigarettes ; Tobacco Cessation Education Requested by Patient: No Hx Alcohol Use: No Hx Substance Use: No Review of Systems Review of Systems: All systems reviewed & are unremarkable except as noted in HPI & below A-fib, CVA, HTN, dementia Physical Exam Constitutional: pt is on vent Neck: trachea midline, no thyromegaly Respiratory: normal respiratory effort, lungs clear to auscultation on the vent Cardiovascular: Heart Sounds: normal S1 and normal S2 Gastrointestinal (Abdomen): normal bowel sounds, soft, nontender, no hepatosplenomegaly no distend, soft, BS + Skin: no rashes, warm and dry Results & Data Vital Signs (Past 12 Hours) Vital Signs Pulse Resp BP Pulse Ox 10/03/19 16:40 79 22 97 10/03/19 16:00 79 10/03/19 13:48 81 18 98 10/03/19 13:00 81 103/56 L 95 10/03/19 12:00 79 113/57 L 96 10/03/19 11:26 81 21 100 10/03/19 11:00 81 140/69 99 10/03/19 10:00 84 125/64 98 10/03/19 09:00 84 111/58 L 98 Laboratory Results Abnormal lab results 10/03/19 10/03/19 10/03/19 Range/Units 00:27 00:28 04:34 WBC 23.78 H (4.8-10.8) K/uL RBC 3.17 L (4.2-5.4) M/uL Hgb 8.8 L (12.0-16.0) g/dL Hct 27.8 L (37-47) % MCHC 31.7 L (32-36) g/dL RDW Std Deviation 49.6 H (36.4-46.3) fL RDW Coeff of Boris 15.5 H (11.5-14.5) % Immature Gran # (Auto) 0.26 H (0.00-0.02) K/uL Neut # (Auto) 22.02 H (1.4-6.5) K/uL Lymph # (Auto) 0.84 L (1.2-3.4) K/uL [place] # (Auto) 0.64 H (0.11-0.59) K/uL Absolute Nucleated RBC 0.02 H (0-0) K/uL POC pCO2 (35-46) mmHg POC HCO3 (19-24) lena/L POC Total CO2 (24-31) mEq/l POC Base Excess (-9-1.8) lena/L POC ABG O2 Sat (90-95) % Sodium 154 H (136-145) mmol/L Chloride 129 H (98-107) mmol/L Carbon Dioxide 19 L (21-32) mmol/L BUN 58 H (7-18) mg/dl Creatinine 2.29 H (0.6-1.2) mg/dl BUN/Creatinine Ratio 25.5 H (10-20) Glucose 106 H (70-99) mg/dl POC Glucose 106 H (70-99) Calcium 7.8 L (8.5-10.1) mg/dl AST (15-37) U/L Total Protein (6.4-8.2) gm/dl Albumin (3.4-5.0) gm/dl Albumin/Globulin Ratio (0.9-2) 10/03/19 10/03/19 10/03/19 Range/Units 04:34 05:40 05:42 WBC (4.8-10.8) K/uL RBC (4.2-5.4) M/uL Hgb (12.0-16.0) g/dL Hct (37-47) % MCHC (32-36) g/dL RDW Std Deviation (36.4-46.3) fL RDW Coeff of Boris (11.5-14.5) % Immature Gran # (Auto) (0.00-0.02) K/uL Neut # (Auto) (1.4-6.5) K/uL Lymph # (Auto) (1.2-3.4) K/uL [place] # (Auto) (0.11-0.59) K/uL Absolute Nucleated RBC (0-0) K/uL POC pCO2 20 L (35-46) mmHg POC HCO3 14 L (19-24) lena/L POC Total CO2 14 L (24-31) mEq/l POC Base Excess -10.0 L (-9-1.8) lena/L POC ABG O2 Sat 97.0 H (90-95) % Sodium 152 H (136-145) mmol/L Chloride 127 H (98-107) mmol/L Carbon Dioxide 19 L (21-32) mmol/L BUN 55 H (7-18) mg/dl Creatinine 2.22 H (0.6-1.2) mg/dl BUN/Creatinine Ratio 24.9 H (10-20) Glucose 124 H (70-99) mg/dl POC Glucose 130 H (70-99) Calcium 7.6 L (8.5-10.1) mg/dl AST 14 L (15-37) U/L Total Protein 5.9 L (6.4-8.2) gm/dl Albumin 2.2 L (3.4-5.0) gm/dl Albumin/Globulin Ratio 0.6 L (0.9-2) 10/03/19 10/03/19 10/03/19 Range/Units 08:08 11:01 11:01 WBC (4.8-10.8) K/uL RBC (4.2-5.4) M/uL Hgb 9.8 L (12.0-16.0) g/dL Hct 31.5 L (37-47) % MCHC (32-36) g/dL RDW Std Deviation (36.4-46.3) fL RDW Coeff of Boris (11.5-14.5) % Immature Gran # (Auto) (0.00-0.02) K/uL Neut # (Auto) (1.4-6.5) K/uL Lymph # (Auto) (1.2-3.4) K/uL [place] # (Auto) (0.11-0.59) K/uL Absolute Nucleated RBC (0-0) K/uL POC pCO2 (35-46) mmHg POC HCO3 (19-24) lena/L POC Total CO2 (24-31) mEq/l POC Base Excess (-9-1.8) lena/L POC ABG O2 Sat (90-95) % Sodium 152 H 148 H (136-145) mmol/L Chloride 125 H 121 H (98-107) mmol/L Carbon Dioxide 19 L 19 L (21-32) mmol/L BUN 58 H 57 H (7-18) mg/dl Creatinine 2.22 H 2.24 H (0.6-1.2) mg/dl BUN/Creatinine Ratio 26.3 H 25.4 H (10-20) Glucose 143 H 154 H (70-99) mg/dl POC Glucose (70-99) Calcium 8.1 L 8.3 L (8.5-10.1) mg/dl AST (15-37) U/L Total Protein (6.4-8.2) gm/dl Albumin (3.4-5.0) gm/dl Albumin/Globulin Ratio (0.9-2) 10/03/19 10/03/19 10/03/19 Range/Units 12:13 15:59 17:55 WBC (4.8-10.8) K/uL RBC (4.2-5.4) M/uL Hgb (12.0-16.0) g/dL Hct (37-47) % MCHC (32-36) g/dL RDW Std Deviation (36.4-46.3) fL RDW Coeff of Boris (11.5-14.5) % Immature Gran # (Auto) (0.00-0.02) K/uL Neut # (Auto) (1.4-6.5) K/uL Lymph # (Auto) (1.2-3.4) K/uL [place] # (Auto) (0.11-0.59) K/uL Absolute Nucleated RBC (0-0) K/uL POC pCO2 (35-46) mmHg POC HCO3 (19-24) lena/L POC Total CO2 (24-31) mEq/l POC Base Excess (-9-1.8) lena/L POC ABG O2 Sat (90-95) % Sodium 147 H (136-145) mmol/L Chloride 120 H (98-107) mmol/L Carbon Dioxide 18 L (21-32) mmol/L BUN 55 H (7-18) mg/dl Creatinine 2.13 H (0.6-1.2) mg/dl BUN/Creatinine Ratio 26.0 H (10-20) Glucose 145 H (70-99) mg/dl POC Glucose 162 H 137 H (70-99) Calcium 7.6 L (8.5-10.1) mg/dl AST (15-37) U/L Total Protein (6.4-8.2) gm/dl Albumin (3.4-5.0) gm/dl Albumin/Globulin Ratio (0.9-2) 10/03/19 Range/Units 19:59 WBC (4.8-10.8) K/uL RBC (4.2-5.4) M/uL Hgb (12.0-16.0) g/dL Hct (37-47) % MCHC (32-36) g/dL RDW Std Deviation (36.4-46.3) fL RDW Coeff of Boris (11.5-14.5) % Immature Gran # (Auto) (0.00-0.02) K/uL Neut # (Auto) (1.4-6.5) K/uL Lymph # (Auto) (1.2-3.4) K/uL [place] # (Auto) (0.11-0.59) K/uL Absolute Nucleated RBC (0-0) K/uL POC pCO2 (35-46) mmHg POC HCO3 (19-24) lena/L POC Total CO2 (24-31) mEq/l POC Base Excess (-9-1.8) lena/L POC ABG O2 Sat (90-95) % Sodium 146 H (136-145) mmol/L Chloride 120 H (98-107) mmol/L Carbon Dioxide 18 L (21-32) mmol/L BUN 55 H (7-18) mg/dl Creatinine 2.02 H (0.6-1.2) mg/dl BUN/Creatinine Ratio 27.2 H (10-20) Glucose 116 H (70-99) mg/dl POC Glucose (70-99) Calcium 7.5 L (8.5-10.1) mg/dl AST (15-37) U/L Total Protein (6.4-8.2) gm/dl Albumin (3.4-5.0) gm/dl Albumin/Globulin Ratio (0.9-2) Diagnostic Findings CT OF THE ABDOMEN AND PELVIS WITH ORAL CONTRAST CLINICAL HISTORY: Abdominal tenderness, sepsis COMPARISON STUDY: CT of the abdomen and pelvis August 21, 2017. Doppler renal ultrasound June 05, 2018. TECHNIQUE: Axial images of the abdomen and pelvis were obtained without IV contrast. Oral contrast was administered. Automated exposure control was utilized for the study. A dose lowering technique was utilized adhering to the principles of ALARA. FINDINGS: The chest will be reported separately. No pneumatosis, free air or portal venous gas is present. Evaluation of the abdomen and pelvis is suboptimal on this unenhanced examination. A 3.4 cm infrarenal abdominal aortic aneurysm is similar to CT of August 21, 2017. Right nephrectomy bed is unchanged in appearance. Unenhanced images of the liver, spleen, adrenal glands and pancreas are unremarkable. The gallbladder is mildly distended. There are gallstones within the gallbladder. There is no left hydronephrosis. The majority of the small bowel is moderately dilated and fluid-filled. 2 possible transition points within the right lower quadrant are noted within the distal ileum. The distal small bowel is decompressed. A large amount stool within the rectum is noted. There is mild adjacent infiltration. Left hip arthroplasty is noted. Iniguez balloon is present within the bladder which is collapsed. Apparent endometrial thickening has developed since prior CT. There are no suspicious osseous lesions. A small hiatal hernia is present. IMPRESSION: 1. Moderately distended fluid-filled small bowel with 2 possible transition points within the right lower quadrant. The findings suggest a moderate grade partial small bowel obstruction. Nasogastric tube in place. 2. Large amount stool within the rectum with mild perirectal infiltration which may reflect stercoral colitis. 3. Cholelithiasis and moderate gallbladder distention. Right upper quadrant ultrasound could be obtained to evaluate for possible acute cholecystitis. 4. Apparent endometrial thickening. Differential considerations include ma lignancy, hyperplasia or cavity distended with blood products. This could be correlated with history of postmenopausal bleeding and pelvic ultrasound. 5. No significant change in a 3.4 cm infrarenal abdominal aortic aneurysm.
[2019-10-03] MEDS: LATANOPROST 0.005% OP SOLN 2.5 ML BTL OPB SCH (22:08)
[2019-10-04] MEDS: PIPERACILLIN/TAZOBACTAM 4.5 GM in DEXTROSE 5% 100 ML IV SCH ×3 (00:48→23:55)
[2019-10-04 00:54] LABS: BUN Creatinine Ratio 27.9 (10-20); Calcium 7.3 mg/dl (8.5-10.1); Creatinine Clr Calc Pharmacy 14.1 ml/min; Est GFR (Non-African American) 22.4; Potassium 3.3 mmol/L (3.5-5.1)
[2019-10-04] MEDS: INSULIN ASPART 100 UNITS/ML 3 ML PEN SC SCH ×5 (01:17→23:56)
[2019-10-04] MEDS ORDERED: LACTATED RINGER'S 500 ML IV ONE (01:20)
[2019-10-04] MEDS ORDERED: LEVOFLOXACIN/D5W 500 MG/100 ML BAG IV SCH (04:00)
[2019-10-04 04:32] LABS: Hematocrit (blood only) 25.7 % (37-47); Hemoglobin 8.3 g/dL (12.0-16.0); Mean Corpuscular Hemoglobin 28.1 pg (25-34); Mean Corpuscular Hgb Conc 32.3 g/dL (32-36); Mean Corpuscular Volume 87.1 fL (80-100); Mean Platelet Volume 9.1 fL (7.4-10.4); Platelet Count 245 K/uL (130-400); RDW Coefficient of Variation 15.8 % (11.5-14.5); RDW Standard Deviation 50.3 fL (36.4-46.3); Red Blood Count 2.95 M/uL (4.2-5.4); White Blood Count 22.35 K/uL (4.8-10.8)
[2019-10-04 04:55] LABS: Albumin Level 1.8 gm/dl (3.4-5.0); BUN Creatinine Ratio 26.2 (10-20); Calcium 7.3 mg/dl (8.5-10.1); Creatinine Clr Calc Pharmacy 14.1 ml/min; Est GFR (Non-African American) 22.4; Potassium 3.4 mmol/L (3.5-5.1)
[2019-10-04 04:58] LABS: Albumin Globulin Ratio 0.5 (0.9-2); Bilirubin,Total 0.4 mg/dl (0.2-1); Globulin 3.3 gm/dl (2.5-4.0); Total Protein 5.1 gm/dl (6.4-8.2)
[2019-10-04 05:02] LABS: Basophils # (auto) 0.01 K/uL (0-0.2); Echinocytes 1+; Eosinophils # (auto) 0.14 K/uL (0-0.5); Eosinophils % (auto) 0.6 %; Immature Granulocytes % (auto) 0.9 %; Lymphocytes # (auto) 0.91 K/uL (1.2-3.4); Lymphocytes % (auto) 4.1 %; Monocytes # (auto) 0.55 K/uL (0.11-0.59); Monocytes % (auto) 2.5 %; Neutrophils # (auto) 20.54 K/uL (1.4-6.5); Neutrophils % (auto) 91.9 %; Ovalocytes 1+
[2019-10-04] MEDS: PROPOFOL 1,000 MG/100 ML VIAL IV SCH (05:04)
[2019-10-04 05:56] LABS: iSTAT Allen Test Pass; iSTAT Arterial Blood Gas HCO3 14 meg/L (19-24); iSTAT Arterial Blood Gas pCO2 27 mmHg (35-46); iSTAT Arterial Blood Gas pH 7.33 (7.35-7.45); iSTAT Arterial Blood Gas pO2 81 mmHg (80-95); iSTAT Carbon Dioxide 15 mEq/l (24-31); iSTAT FiO2 35 %; iSTAT Site R Radial
[2019-10-04] MEDS ORDERED: POTASSIUM CHLORIDE 20 MEQ/15 ML UDC PO STA (08:26)
--- NOTE | 2019-10-04 08:34 | Critical Care Progress Note ---
Date of Service October 04, 2019 Assessment & Plan (1) SBO (small bowel obstruction): Reason Critically Ill: 89-year-old female who initially [facility] from [facility] with A. fib RVR, hypernatremia, acute hypoxemic respiratory failure Neuro - Altered mental status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, vascular disease, prior CVA in the setting of UTI/sepsis -Patient demented at baseline, able to speak in short sentences but often they don't make sense or are unintelligible -Ammonia within normal limits, CO2 30 -CT head negative for acute process -BUN mildly elevated Currently unable to assess mental status as patient is intubated and sedated Will extubate and continue to evaluate today Patient extubated and close to previous mental status. Speaking short sentences and following commands Cardiac - Cain. juan carlos RVRpatient with history of PAF With repletion of potassium and volume patient converted back to sinus yesterday and remains there today Pressure has been stable but on the low side MAP greater than 65 not requi ring pressor support Respiratory - Acute hypoxic respiratory failurelikely secondary to aspiration pneumonia -CXR showed right basilar opacity consistent with pneumonia versus atelectasis Bedside ultrasound showed this as well Patient was maintaining sats well on 2 L nasal cannula, however had consistent tachypnea and increased work of breathing since admission This was likely a combination of her pneumonia/sepsis and compensation for metabolic lactic/hyperchloremic acidosis Proceeded with intubation 10/02 evening Today was doing well and able to be extubated Oxygenating well and breathing comfortably on 2L currently GI - N.p.o. OG tube in place Abdominal tendernessright lower quadrant tenderness with deep palpation CT abdomen revealed possible SBO with large stool burden in colon Has had copious amount of bowel motions overnight and Surgery recommending starting to feed -LFTs within normal limits RENAL/LYTES - Acute on chronic kidney diseasebaseline creatinine 1.5 on prior admissions, 2.8 on this admission Pre renal Creatinine improved to 1.7 with fluid resuscitation -We will continue to trend creatinine -Strict I's and O's -Avoid nephrotoxins Hypernatremia Secondary to her dehydration bolused with 1 L NS in ED, Gave additional 1.5 L here in ICU Gave D5W at 75 mls/hr until bmp at 1300 showed a sodium of 148 which was too rapid of a correction. Held D5W and had patient on 1/2 NSS overnight before resuming [id number] of 10/03 at 65 mls/hour and sodium has returned to normal range Checking BMP q6h Now on sodium bicarb at 50 mls/hour Hypokalemia Hypokalemic this morning at 3.4 will supplement with 20 meq through OG tube prior to intubation -Monitor with routine BMPs - Iniguez insertedstrict I's and O's ENDO - No history diabetes, hemoglobin A1c 5.8 on prior admission No history of thyroid disease Placed on sliding scale insulin HEME - H&H stable, monitor routine CBCs Patient initially placed on heparin drip while NPO After intubation and OG tube placed, transitioned back to Xarelto. Currently NPO but got todays dose of xarelto ID - Sepsispatient initially febrile with leukocytosis and elevated lactate Pneumonia seen on CXR and bedside ultrasound Pulmonary secretions from ET tube sent for culture Currently on doxycycline and zosyn Blood Cultures growing gram positive cocci in chains LINES/IV ACCESS - Peripheral IV Right side PICC line DVT PROPHYLAXIS - SCDs, patient on Xarelto Patient will need to remain ICU status as she is currently intubated requiring ventilation. While she remains critical ill her labwork and vitals have improved since admission Hope to extubate this morning as acute septic insult continues to resolve. Palliative care consulted for ongoing goals of care discussion (2) Pneumonia: (3) Vascular dementia: (4) Alzheimer's dementia: (5) Fehsa-fh-ysiinhu kidney injury: (6) Hypokalemia: (7) Fever: (8) Elevated troponin I level: (9) AMS (altered mental status): Supervising Physician Co-Signing Physician Notes Dr. Starkey was the resident-physician during care of patient. I separately evaluated patient for baca portions of the history and the exam. I was present during the critical portion of medical decision making, and I discussed the case with the resident. I generally agree with the findings and plan except for any additions/exceptions noted. Patient seen and examined at bedside. No adverse event overnight. No acute distress, intubated. Patient was off fentanyl since an hour prior to me seeing her. Patient is breathing over the vent. MIF is -29. Sodium has gone down gradually as we intended. We will continue with D5 water. Patient is still not swallowing appropriately. We will get an official swallow eval given that the patient has possible aspiration when she came in. Patient had multiple bowel movements yesterday and overnight which clinically means that her partial SBO has resolved. We will try extubation trial today. Will need palliative care to be involved. I have personally spent 45 minutes of critical care time in the direct management of this patient. This is a life/limb threatening event. This includes time spent evaluating patient, direct bedside care, chart review, placing orders, interpretation of diagnostic studies, discussion with consultants, patient, and/or family members regarding treatment decisions, as well as other required patient management activities. This time is exclusive of all separately billable procedures, and teaching time and separate from and in addition to any other critical care service time. Subjective Patient intubated and sedated this morning but is easily rousable and follows commands. She does not appear in any distress. No family at bedside Review of Systems Review of Systems: All systems reviewed & are unremarkable except as noted in HPI & below Physical Exam Physical Exam: Constitutional: Frail 89 year old woman lying in bed Eyes: PERRL, conjunctivae normal, anicteric sclerae ENMT: External ear and nose normal, oropharynx normal Neck: trachea midline, no thyromegaly Respiratory: Lungs coarse bilaterally in all alva upon auscultation, symmetrical chest wall movement, patient is breathing on ventilator Cardiovascular: Rate/Rhythm: Regular rate and rhythm Systolic ejection murmur Vessels: no JVD Extremities: no edema, peripheral pulses intact Gastrointestinal (Abdomen): Nondistended, normal bowel sounds Skin: no rashes, warm and dry, diffuse bruising over both arms Genitourinary: Indwelling Iniguez present Neurologic: + does not move all extremities (Does not move left upper extremity, minimal left lower extremity movement) Results & Data Vital Signs (Past 12 Hours) Vital Signs Temp Pulse Resp BP Pulse Ox 10/04/19 06:25 85 19 95 10/04/19 05:01 81 108/51 L 96 10/04/19 04:00 37.1 C 81 102/53 L 90 10/04/19 03:57 79 20 96 10/04/19 03:01 79 101/49 L 94 10/04/19 02:01 79 118/52 L 99 10/04/19 01:30 82 18 97 10/04/19 01:01 81 107/52 L 98 10/04/19 00:00 37 C 80 112/53 L 98 10/03/19 23:01 81 97/52 L 98 10/03/19 22:00 80 117/54 L 96 10/03/19 21:01 79 93/49 L 97 10/03/19 20:40 80 20 97 Resident Activity Tracking Resident Involvement: Resident Care Provided Care Provided: Adult Hospital Medicine (1) Fever Fever type: unspecified Qualified Code(s): R50.9 - Fever, unspecified (2) AMS (altered mental status) Altered mental status type: unspecified Qualified Code(s): R41.82 - Altered mental status, unspecified
[2019-10-04] MEDS: METOPROLOL TARTRATE 25 MG TAB PO SCH ×2 (08:43→20:33)
[2019-10-04] MEDS: ASPIRIN 81 MG CHEW PO SCH (08:44)
[2019-10-04] MEDS: RIVAROXABAN 15 MG TAB PO SCH (08:45)
--- NOTE | 2019-10-04 09:14 | Hospitalist Progress Note ---
Date of Service October 04, 2019 Assessment & Plan (1) Atrial fibrillation with RVR: 89-year-old female was admitted on 02 October 2019 for tachycardia, hypernatremia, dehydration, acute on chronic kidney injury, and possible ongoing aspiration pneumonia. Patient is relatively nonverbal at baseline and is noncontributory to history. A. fib RVR: - patient with history of PAF - Given IV metoprolol with improvement in rate and hemodynamics; continue oral metoprolol to IV - Patient on Xarelto, will continue - Monitor on telemetry: consider IV Cardizem drip if remains uncontrolled Sepsis: - patient febrile with leukocytosis and elevated lactate - Pulmonary or urine source likely, cannot rule out abdominal source at this time - Patient diagnosed 3 days ago with aspiration pneumonia and did 3 days of azithromycin - Received Levaquin and Vanco in ED; Zosyn added to cover Pseudomonas - Blood Cultures NGTD after 24 urine Altered mental status: - 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, vascular disease, prior CVA in the setting of UTI/sepsis - Patient functionally nonverbal at baseline - Ammonia within normal limits, CO2 30 - CT head negative for acute process - BUN mildly elevated - Frequent neuro exams, monitor Acute hypoxic respiratory failure: - likely secondary to aspiration pneumonia - CXR showed right basilar opacity consistent with pneumonia versus atelectasis - No history COPD or asthma - See antibiotic regimen - Patient currently intubated, with improving blood gases overnight - PRN DuoNeb - Infleunza PCR negative - Continuous to monitor oxygen saturations Abdominal tenderness: - right lower quadrant tenderness with deep palpation - consider CT abdomen when patient stable to rule out diverticulitis, appendicitis - Zosyn added to antibiotic regimen Acute on chronic kidney disease: - baseline creatinine 1.5 on prior admissions, 2.8 on this admission - continue hydration - Strict I's and O's - Avoid nephrotoxins Hypernatremia/Hypokalemia: - patient euvolemic and bolused with 1 L NS in ED, will give additional 1 L NS and reassess - will follow with D5W with 24-hour goal to reduce sodium by 10 mEq from initial 157, this AM trended down to 143 Code status: Full code. Diet: NPO except meds. DVT prophy: Xarelto. Disbo: Critically ill. At baseline is resident of [facility]. (2) Sepsis: (3) Hypernatremia: (4) Hypoxia: (5) Anemia: (6) Elevated INR: (7) Hypokalemia: (8) [id number] kidney injury: (9) Hypertension: (10) HLD (hyperlipidemia): (11) Alzheimer's dementia: Supervising Physician Co-Signing Physician Notes Resident Physician Supervision Note: I personally examined the patient and verified all baca points of history and exam, discussed case, and agree with decision making with Dr Zarate. She has been extubated. She does not really offer much of any HPI or review of systems, but occasionally nods. She nods yes to pain and it loosely seems to be from her throat. She seems to may be loosely denied feeling short of breath. Nursing notes no other problems. Vitals noted, in general she is laying in bed very still but appears in no distress. HEENT normocephalic atraumatic mucous membranes are moist. Cardio somewhat distant rate seems to be controlled, lungs are faint basilar rhonchi but overall good air entry moderate effort, no accessory muscle use. Skin shows no rashes no pallor or icterus. No focal neuro deficits. A/P: 1. acute hypoxic respiratory failure - 2nd to RLL aspiration pneumonia; seems to be improving. Continue antibiotics and supportive care. Fortunately she has been extubated. 2. hypernatremic dehydration - improved w/ fluids. Continue to follow fluid status 3. partial SBO -surgical input appreciated. Continue supportive care. 4. acute kidney injury in setting of CKD stage 4 - supportive care, fluids, e tc. Serial BMP. Improving 5. sepsis - 2nd to #1 - supportive care, treat pneumonia, etc. improving 6. a. fib with RVR -rate controlled, baseline anticoagulation with Xarelto. 7. RLL pneumonia - likely due to aspiration in setting of dysphagia from dementia. 8. dementia - severe at baseline by history. Subjective Patient was extubated this morning, is now responsive to voice and able to signal yes or no to simple questions. Indicates that she is in pain, but that pain is in her throat and does not have pain else where Review of Systems Review of Systems: Unobtainable due to cognitive status Physical Exam Constitutional: + ill appearing and + frail appearing Eyes: PERRL, conjunctivae normal, anicteric sclerae Respiratory: symmetric chest movement; no retractions Auscultation: + crackles and + wheezes; no rales Cardiovascular: Rate/Rhythm: regular rate and + tachycardic; + abnormal rhythm Heart Sounds: no gallop, no murmur and no cardiac rub Extremities: no edema Gastrointestinal (Abdomen): Inspection/Auscultation: normal bowel sounds Percussion/Palpation: no hepatosplenomegaly and no abdominal mass Skin: no rashes, warm and dry Neurologic: opens eyes to voice, able to follow simple commands (squeeze fingers, wiggle toes) symmetrically bilaterall Psychiatric: Orientation: alert Apperance: + disheveled Eye Contact: good eye contact Speech: + mute Results & Data Vital Signs (Past 12 Hours) Vital Signs Temp Pulse Resp BP Pulse Ox 10/04/19 06:25 85 19 95 10/04/19 05:01 81 108/51 L 96 10/04/19 04:00 37.1 C 81 102/53 L 90 10/04/19 03:57 79 20 96 10/04/19 03:01 79 101/49 L 94 10/04/19 02:01 79 118/52 L 99 10/04/19 01:30 82 18 97 10/04/19 01:01 81 107/52 L 98 10/04/19 00:00 37 C 80 112/53 L 98 10/03/19 23:01 81 97/52 L 98 10/03/19 22:00 80 117/54 L 96 Laboratory Results 10/04/19 10/04/19 10/04/19 Range/Units 11:53 11:49 06:14 WBC (4.8-10.8) K/uL RBC (4.2-5.4) M/uL Hgb (12.0-16.0) g/dL POC Hgb (12.0-16.0) g/dl Hct (37-47) % POC Hct (37-47) % MCV (80-100) fL MCH (25-34) pg MCHC (32-36) g/dL RDW Std Deviation (36.4-46.3) fL RDW Coeff of Boris (11.5-14.5) % Plt Count (130-400) K/uL MPV (7.4-10.4) fL Immature Gran % (Auto) % Neut % (Auto) % Lymph % (Auto) % [place] % (Auto) % Eos % (Auto) % Baso % (Auto) % Immature Gran # (Auto) (0.00-0.02) K/uL Neut # (Auto) (1.4-6.5) K/uL Lymph # (Auto) (1.2-3.4) K/uL [place] # (Auto) (0.11-0.59) K/uL Eos # (Auto) (0-0.5) K/uL Baso # (Auto) (0-0.2) K/uL Ovalocytes Echinocytes Specimen Type Sample Site Patient Temperature POC pH (7.35-7.45) POC pCO2 (35-46) mmHg POC pO2 (80-95) mmHg POC HCO3 (19-24) lena/L POC Total CO2 (24-31) mEq/l POC Base Excess (-9-1.8) lena/L POC O2 Saturation O2 Sat Pulse Oximetry ABG pH (Temp Correct) (7.35-7.45) ABG pCO2 (Temp Corrct (35-46) mmHg POC ABG pO2 at Pt Temp POC ABG O2 Sat (90-95) % Robinson Test O2 Delivery Device POC O2 Rate Minute Ventilation Vent Mode POC FiO2 % Tidal Volume End Tidal CO2 PEEP POC Sodium (135-144) mEq/L Sodium 141 (136-145) mmol/L POC Potassium (3.3-5.0) mEq/L Potassium 4.0 D (3.5-5.1) mmol/L Chloride 116 H (98-107) mmol/L Carbon Dioxide 18 L (21-32) mmol/L Anion Gap 8.0 (3-11) BUN 45 H (7-18) mg/dl Creatinine 1.79 H (0.6-1.2) mg/dl Est Cr Clr Drug Dosing 15.3 ml/min Est GFR ( Amer) 28.6 Est GFR (Non-Af Amer) 24.7 BUN/Creatinine Ratio 25.3 H (10-20) Glucose 100 H (70-99) mg/dl POC Glucose 109 H 88 (70-99) Calcium 7.9 L (8.5-10.1) mg/dl Phosphorus (2.5-4.9) mg/dl Magnesium (1.8-2.4) mg/dl Total Bilirubin (0.2-1) mg/dl AST (15-37) U/L ALT (12-78) U/L Alkaline Phosphatase (45-117) U/L Total Protein (6.4-8.2) gm/dl Albumin (3.4-5.0) gm/dl Globulin (2.5-4.0) gm/dl Albumin/Globulin Ratio (0.9-2) 10/04/19 10/04/19 10/04/19 Range/Units 05:43 04:01 04:01 WBC (4.8-10.8) K/uL RBC (4.2-5.4) M/uL Hgb (12.0-16.0) g/dL POC Hgb (12.0-16.0) g/dl Hct (37-47) % POC Hct (37-47) % MCV (80-100) fL MCH (25-34) pg MCHC (32-36) g/dL RDW Std Deviation (36.4-46.3) fL RDW Coeff of Boris (11.5-14.5) % Plt Count (130-400) K/uL MPV (7.4-10.4) fL Immature Gran % (Auto) % Neut % (Auto) % Lymph % (Auto) % [place] % (Auto) % Eos % (Auto) % Baso % (Auto) % Immature Gran # (Auto) (0.00-0.02) K/uL Neut # (Auto) (1.4-6.5) K/uL Lymph # (Auto) (1.2-3.4) K/uL [place] # (Auto) (0.11-0.59) K/uL Eos # (Auto) (0-0.5) K/uL Baso # (Auto) (0-0.2) K/uL Ovalocytes Echinocytes Specimen Type Sample Site R Radial Patient Temperature POC pH 7.33 L (7.35-7.45) POC pCO2 27 L (35-46) mmHg POC pO2 81 (80-95) mmHg POC HCO3 14 L (19-24) lena/L POC Total CO2 15 L (24-31) mEq/l POC Base Excess -12.0 L (-9-1.8) lena/L POC O2 Saturation O2 Sat Pulse Oximetry ABG pH (Temp Correct) (7.35-7.45) ABG pCO2 (Temp Corrct (35-46) mmHg POC ABG pO2 at Pt Temp POC ABG O2 Sat 95.0 (90-95) % Robinson Test Pass O2 Delivery Device Ventilator POC O2 Rate 18 Minute Ventilation 11.0 Vent Mode POC FiO2 35 % Tidal Volume 440 End Tidal CO2 PEEP 5 POC Sodium (135-144) mEq/L Sodium Cancelled 143 (136-145) mmol/L POC Potassium (3.3-5.0) mEq/L Potassium Cancelled 3.4 L (3.5-5.1) mmol/L Chloride Cancelled 116 H (98-107) mmol/L Carbon Dioxide Cancelled 18 L (21-32) mmol/L Anion Gap Cancelled 9.0 (3-11) BUN Cancelled 51 H (7-18) mg/dl Creatinine Cancelled 1.94 H (0.6-1.2) mg/dl Est Cr Clr Drug Dosing Cancelled 14.1 ml/min Est GFR ( Amer) Cancelled 26.0 Est GFR (Non-Af Amer) Cancelled 22.4 BUN/Creatinine Ratio Cancelled 26.2 H (10-20) Glucose Cancelled 136 H (70-99) mg/dl POC Glucose (70-99) Calcium Cancelled 7.3 L (8.5-10.1) mg/dl Phosphorus 2.9 (2.5-4.9) mg/dl Magnesium 1.6 L (1.8-2.4) mg/dl Total Bilirubin 0.4 (0.2-1) mg/dl AST 10 L (15-37) U/L ALT 12 (12-78) U/L Alkaline Phosphatase 67 (45-117) U/L Total Protein 5.1 L (6.4-8.2) gm/dl Albumin 1.8 L (3.4-5.0) gm/dl Globulin 3.3 (2.5-4.0) gm/dl Albumin/Globulin Ratio 0.5 L (0.9-2) 10/04/19 10/04/19 10/03/19 Range/Units 04:01 00:09 19:59 WBC 22.35 H (4.8-10.8) K/uL RBC 2.95 L (4.2-5.4) M/uL Hgb 8.3 L (12.0-16.0) g/dL POC Hgb (12.0-16.0) g/dl Hct 25.7 L (37-47) % POC Hct (37-47) % MCV 87.1 (80-100) fL MCH 28.1 (25-34) pg MCHC 32.3 (32-36) g/dL RDW Std Deviation 50.3 H (36.4-46.3) fL RDW Coeff of Boris 15.8 H (11.5-14.5) % Plt Count 245 (130-400) K/uL MPV 9.1 (7.4-10.4) fL Immature Gran % (Auto) 0.9 % Neut % (Auto) 91.9 % Lymph % (Auto) 4.1 % [place] % (Auto) 2.5 % Eos % (Auto) 0.6 % Baso % (Auto) 0.0 % Immature Gran # (Auto) 0.20 H (0.00-0.02) K/uL Neut # (Auto) 20.54 H (1.4-6.5) K/uL Lymph # (Auto) 0.91 L (1.2-3.4) K/uL [place] # (Auto) 0.55 (0.11-0.59) K/uL Eos # (Auto) 0.14 (0-0.5) K/uL Baso # (Auto) 0.01 (0-0.2) K/uL Ovalocytes 1+ Echinocytes 1+ Specimen Type Sample Site Patient Temperature POC pH (7.35-7.45) POC pCO2 (35-46) mmHg POC pO2 (80-95) mmHg POC HCO3 (19-24) lena/L POC Total CO2 (24-31) mEq/l POC Base Excess (-9-1.8) lena/L POC O2 Saturation O2 Sat Pulse Oximetry ABG pH (Temp Correct) (7.35-7.45) ABG pCO2 (Temp Corrct (35-46) mmHg POC ABG pO2 at Pt Temp POC ABG O2 Sat (90-95) % Robinson Test O2 Delivery Device POC O2 Rate Minute Ventilation Vent Mode POC FiO2 % Tidal Volume End Tidal CO2 PEEP POC Sodium (135-144) mEq/L Sodium 145 146 H (136-145) mmol/L POC Potassium (3.3-5.0) mEq/L Potassium 3.3 L 3.5 (3.5-5.1) mmol/L Chloride 118 H 120 H (98-107) mmol/L Carbon Dioxide 20 L 18 L (21-32) mmol/L Anion Gap 7.0 8.0 (3-11) BUN 54 H 55 H (7-18) mg/dl Creatinine 1.94 H 2.02 H (0.6-1.2) mg/dl Est Cr Clr Drug Dosing 14.1 13.6 ml/min Est GFR ( Amer) 26.0 24.7 Est GFR (Non-Af Amer) 22.4 21.3 BUN/Creatinine Ratio 27.9 H 27.2 H (10-20) Glucose 128 H 116 H (70-99) mg/dl POC Glucose (70-99) Calcium 7.3 L 7.5 L (8.5-10.1) mg/dl Phosphorus (2.5-4.9) mg/dl Magnesium (1.8-2.4) mg/dl Total Bilirubin (0.2-1) mg/dl AST (15-37) U/L ALT (12-78) U/L Alkaline Phosphatase (45-117) U/L Total Protein (6.4-8.2) gm/dl Albumin (3.4-5.0) gm/dl Globulin (2.5-4.0) gm/dl Albumin/Globulin Ratio (0.9-2) 10/03/19 10/03/19 10/02/19 Range/Units 17:55 15:59 16:31 WBC (4.8-10.8) K/uL RBC (4.2-5.4) M/uL Hgb (12.0-16.0) g/dL POC Hgb 9.2 L (12.0-16.0) g/dl Hct (37-47) % POC Hct 27 L (37-47) % MCV (80-100) fL MCH (25-34) pg MCHC (32-36) g/dL RDW Std Deviation (36.4-46.3) fL RDW Coeff of Boris (11.5-14.5) % Plt Count (130-400) K/uL MPV (7.4-10.4) fL Immature Gran % (Auto) % Neut % (Auto) % Lymph % (Auto) % [place] % (Auto) % Eos % (Auto) % Baso % (Auto) % Immature Gran # (Auto) (0.00-0.02) K/uL Neut # (Auto) (1.4-6.5) K/uL Lymph # (Auto) (1.2-3.4) K/uL [place] # (Auto) (0.11-0.59) K/uL Eos # (Auto) (0-0.5) K/uL Baso # (Auto) (0-0.2) K/uL Ovalocytes Echinocytes Specimen Type Arterial Sample Site L Radial Patient Temperature 36.6 POC pH 7.26 L (7.35-7.45) POC pCO2 41 (35-46) mmHg POC pO2 432 H (80-95) mmHg POC HCO3 19 (19-24) lena/L POC Total CO2 20 L (24-31) mEq/l POC Base Excess -9.0 (-9-1.8) lena/L POC O2 Saturation 100 O2 Sat Pulse Oximetry 100 ABG pH (Temp Correct) 7.267 L (7.35-7.45) ABG pCO2 (Temp Corrct 40 (35-46) mmHg POC ABG pO2 at Pt Temp 430 POC ABG O2 Sat (90-95) % Robinson Test Acceptable O2 Delivery Device Ventilator POC O2 Rate 26 Minute Ventilation 10.5 Vent Mode AC POC FiO2 100 % Tidal Volume 400 End Tidal CO2 22 PEEP 5 POC Sodium 156 H* (135-144) mEq/L Sodium 147 H (136-145) mmol/L POC Potassium 3.6 (3.3-5.0) mEq/L Potassium 3.6 (3.5-5.1) mmol/L Chloride 120 H (98-107) mmol/L Carbon Dioxide 18 L (21-32) mmol/L Anion Gap 8.0 (3-11) BUN 55 H (7-18) mg/dl Creatinine 2.13 H (0.6-1.2) mg/dl Est Cr Clr Drug Dosing 12.9 ml/min Est GFR ( Amer) 23.2 Est GFR (Non-Af Amer) 20.0 BUN/Creatinine Ratio 26.0 H (10-20) Glucose 145 H (70-99) mg/dl POC Glucose 137 H (70-99) Calcium 7.6 L (8.5-10.1) mg/dl Phosphorus (2.5-4.9) mg/dl Magnesium (1.8-2.4) mg/dl Total Bilirubin (0.2-1) mg/dl AST (15-37) U/L ALT (12-78) U/L Alkaline Phosphatase (45-117) U/L Total Protein (6.4-8.2) gm/dl Albumin (3.4-5.0) gm/dl Globulin (2.5-4.0) gm/dl Albumin/Globulin Ratio (0.9-2) Medications Administered Current Inpatient Medications Albuterol (Duoneb) 3 ml NEB Q4R PRN PRN Reason: Shortness Of Breath Or Wheezing Stop: 11/01/19 10:59 Aspirin (Aspirin Chew) 81 mg PO DAILY LISA Stop: 11/01/19 08:59 Last Admin: 10/04/19 08:44 Dose: 81 mg Documented by: Dextrose (Dextrose 50%) 25 - 50 ml IV UD PRN; Protocol PRN Reason: Hypoglycemia Protocol Stop: 11/01/19 08:44 Glucagon (Glucagen) 1 mg IM UD PRN; Protocol PRN Reason: Hypoglycemia Protocol Stop: 11/01/19 08:44 Glucose (Glucose 40%) 15 - 30 gm PO UD PRN; Protocol PRN Reason: Hypoglycemia Protocol Stop: 11/01/19 08:44 Glucose (Dex4 Glucose) 4 - 8 tabs PO UD PRN; Protocol PRN Reason: Hypoglycemia Protocol Stop: 11/01/19 08:44 Piperacillin Sod/Tazobactam (Sod 4.5 gm/ Dextrose) 120 mls @ 30 mls/hr IV Q12H LISA; Protocol Stop: 10/09/19 11:59 Last Admin: 10/04/19 12:11 Dose: 30 mls/hr Documented by: Doxycycline Hyclate 100 mg/ (Dextrose) 110 mls @ 50 mls/hr IV Q12H LISA Stop: 10/09/19 10:59 Last Infusion: 10/04/19 13:30 Dose: Infused Documented by: Sodium Bicarbonate 100 meq/ (Dextrose) 1,100 mls @ 50 mls/hr IV .Q22H LISA Stop: 11/03/19 10:29 Last Admin: 10/04/19 10:34 Dose: 50 mls/hr Documented by: Insulin Aspart (Novolog Flexpen) 0 units SC Q6 [facility] Stop: 11/01/19 08:44 Last Admin: 10/04/19 12:01 Dose: Not Given Documented by: Latanoprost (Xalatan Oph) 1 drops OPB HS [facility] Stop: 11/01/19 20:59 Last Admin: 10/03/19 22:08 Dose: 1 drops Documented by: Metoprolol Tartrate (Lopressor) 12.5 mg PO BID [facility] Stop: 11/01/19 20:59 Last Admin: 10/04/19 08:43 Dose: 12.5 mg Documented by: Miscellaneous (Carbohydrates For Hypoglycemia) 15 - 30 gm PO UD PRN PRN Reason: Hypoglycemia Treatment Stop: 11/01/19 08:44 Miscellaneous Information (Consult) 1 ea N/A UD PRN PRN Reason: Consult Stop: 11/01/19 06:02 Rivaroxaban (Xarelto) 15 mg PO QDD [facility] Stop: 11/01/19 16:29 Last Admin: 10/04/19 08:45 Dose: 15 mg Documented by: Venlafaxine HCl (Effexor Extended Release) 150 mg PO DAILY [facility] Stop: 11/01/19 08:59 Last Admin: 10/02/19 07:52 Dose: Not Given Documented by: Resident Activity Tracking Resident Involvement: Resident Care Provided Care Provided: Adult Hospital Medicine
[2019-10-04] MEDS ORDERED: POTASSIUM CHLORIDE / WTR 10 MEQ/100 ML PLCT IV SCH (10:30)
[2019-10-04] MEDS: SODIUM BICARBONATE 8.4% 100 MEQ in DEXTROSE 5% 1,000 ML IV SCH (10:34)
[2019-10-04 10:41] LABS: Magnesium 1.6 mg/dl (1.8-2.4)
[2019-10-04 10:42] LABS: Phosphorus 2.9 mg/dl (2.5-4.9)
[2019-10-04] MEDS ORDERED: POTASSIUM CHLORIDE / WTR 20 MEQ/100 ML PLCT IV ONE (10:45)
--- NOTE | 2019-10-04 10:56 | Surgery Progress Note ---
Date of Service October 04, 2019 Assessment & Plan (1) SBO (small bowel obstruction): 89 year-old female admitted to ICU for respiratory distress likely secondary to ongoing aspiration pneumonia. CT scan of abd/pelvis showed dilated small bowel with two possible transition zones in RLQ with fecal retention in rectum with some colitis. + bowel function , abdomen is still distended but soft ?? Ileus vs PSBO due to fecal retention Plan: no surgical intervention required at this time Okay to advance diet slowly as tolerated continue ICU/medical management our services signing off , please call with questions or concerns Dr. murphy was present during my examination, agrees with above. Subjective patient nonverbal at baseline therefore unable to obtain ROS extubated this morning per nursing since CT scan she has had about 10 loose bowel movements Critical care doc questioning about feeding patient Physical Exam Constitutional: elderly female, resting comfortably opens eyes and follows voices but no responses Respiratory: normal respiratory effort; no respiratory distress Gastrointestinal (Abdomen): Inspection/Auscultation: + abdomen distended (tympanic on percussion) Percussion/Palpation: abdomen soft; abdomen nontender, no guarding and abdomen not rigid Skin: no rashes, warm and dry Results & Data Vital Signs (Past 12 Hours) Vital Signs Temp Pulse Resp BP Pulse Ox 10/04/19 09:01 81 92/50 L 99 10/04/19 08:01 37 C 93 H 130/63 100 10/04/19 08:00 81 10/04/19 07:26 82 18 100 10/04/19 07:01 80 104/52 L 38 L 10/04/19 06:25 85 19 95 10/04/19 06:01 85 94/53 L 96 10/04/19 05:01 81 108/51 L 96 10/04/19 04:00 37.1 C 81 102/53 L 90 10/04/19 03:57 79 20 96 10/04/19 03:01 79 101/49 L 94 10/04/19 02:01 79 118/52 L 99 10/04/19 01:30 82 18 97 10/04/19 01:01 81 107/52 L 98 10/04/19 00:00 37 C 80 112/53 L 98 10/03/19 23:01 81 97/52 L 98 Laboratory Results 10/04/19 10/04/19 10/04/19 Range/Units 06:14 05:43 04:01 WBC (4.8-10.8) K/uL RBC (4.2-5.4) M/uL Hgb (12.0-16.0) g/dL Hct (37-47) % MCV (80-100) fL MCH (25-34) pg MCHC (32-36) g/dL RDW Std Deviation (36.4-46.3) fL RDW Coeff of Boris (11.5-14.5) % Plt Count (130-400) K/uL MPV (7.4-10.4) fL Immature Gran % (Auto) % Neut % (Auto) % Lymph % (Auto) % Sanders % (Auto) % Eos % (Auto) % Baso % (Auto) % Immature Gran # (Auto) (0.00-0.02) K/uL Neut # (Auto) (1.4-6.5) K/uL Lymph # (Auto) (1.2-3.4) K/uL Sanders # (Auto) (0.11-0.59) K/uL Eos # (Auto) (0-0.5) K/uL Baso # (Auto) (0-0.2) K/uL Ovalocytes Echinocytes Sample Site R Radial POC pH 7.33 L (7.35-7.45) POC pCO2 27 L (35-46) mmHg POC pO2 81 (80-95) mmHg POC HCO3 14 L (19-24) lena/L POC Total CO2 15 L (24-31) mEq/l POC Base Excess -12.0 L (-9-1.8) lena/L POC ABG O2 Sat 95.0 (90-95) % Robinson Test Pass O2 Delivery Device Ventilator POC O2 Rate 18 Minute Ventilation 11.0 POC FiO2 35 % Tidal Volume 440 PEEP 5 Sodium Cancelled (136-145) mmol/L Potassium Cancelled (3.5-5.1) mmol/L Chloride Cancelled (98-107) mmol/L Carbon Dioxide Cancelled (21-32) mmol/L Anion Gap Cancelled (3-11) BUN Cancelled (7-18) mg/dl Creatinine Cancelled (0.6-1.2) mg/dl Est Cr Clr Drug Dosing Cancelled ml/min Est GFR ( Amer) Cancelled Est GFR (Non-Af Amer) Cancelled BUN/Creatinine Ratio Cancelled (10-20) Glucose Cancelled (70-99) mg/dl POC Glucose 88 (70-99) Calcium Cancelled (8.5-10.1) mg/dl Phosphorus 2.9 (2.5-4.9) mg/dl Magnesium 1.6 L (1.8-2.4) mg/dl Total Bilirubin (0.2-1) mg/dl AST (15-37) U/L ALT (12-78) U/L Alkaline Phosphatase (45-117) U/L Total Protein (6.4-8.2) gm/dl Albumin (3.4-5.0) gm/dl Globulin (2.5-4.0) gm/dl Albumin/Globulin Ratio (0.9-2) Bld Cult Staph aureus PCR (Negative) Blood Culture MRSA PCR (Negative) 10/04/19 10/04/19 10/04/19 Range/Units 04:01 04:01 00:09 WBC 22.35 H (4.8-10.8) K/uL RBC 2.95 L (4.2-5.4) M/uL Hgb 8.3 L (12.0-16.0) g/dL Hct 25.7 L (37-47) % MCV 87.1 (80-100) fL MCH 28.1 (25-34) pg MCHC 32.3 (32-36) g/dL RDW Std Deviation 50.3 H (36.4-46.3) fL RDW Coeff of Boris 15.8 H (11.5-14.5) % Plt Count 245 (130-400) K/uL MPV 9.1 (7.4-10.4) fL Immature Gran % (Auto) 0.9 % Neut % (Auto) 91.9 % Lymph % (Auto) 4.1 % Sanders % (Auto) 2.5 % Eos % (Auto) 0.6 % Baso % (Auto) 0.0 % Immature Gran # (Auto) 0.20 H (0.00-0.02) K/uL Neut # (Auto) 20.54 H (1.4-6.5) K/uL Lymph # (Auto) 0.91 L (1.2-3.4) K/uL Sanders # (Auto) 0.55 (0.11-0.59) K/uL Eos # (Auto) 0.14 (0-0.5) K/uL Baso # (Auto) 0.01 (0-0.2) K/uL Ovalocytes 1+ Echinocytes 1+ Sample Site POC pH (7.35-7.45) POC pCO2 (35-46) mmHg POC pO2 (80-95) mmHg POC HCO3 (19-24) lena/L POC Total CO2 (24-31) mEq/l POC Base Excess (-9-1.8) lena/L POC ABG O2 Sat (90-95) % Robinson Test O2 Delivery Device POC O2 Rate Minute Ventilation POC FiO2 % Tidal Volume PEEP Sodium 143 145 (136-145) mmol/L Potassium 3.4 L 3.3 L (3.5-5.1) mmol/L Chloride 116 H 118 H (98-107) mmol/L Carbon Dioxide 18 L 20 L (21-32) mmol/L Anion Gap 9.0 7.0 (3-11) BUN 51 H 54 H (7-18) mg/dl Creatinine 1.94 H 1.94 H (0.6-1.2) mg/dl Est Cr Clr Drug Dosing 14.1 14.1 ml/min Est GFR ( Amer) 26.0 26.0 Est GFR (Non-Af Amer) 22.4 22.4 BUN/Creatinine Ratio 26.2 H 27.9 H (10-20) Glucose 136 H 128 H (70-99) mg/dl POC Glucose (70-99) Calcium 7.3 L 7.3 L (8.5-10.1) mg/dl Phosphorus (2.5-4.9) mg/dl Magnesium (1.8-2.4) mg/dl Total Bilirubin 0.4 (0.2-1) mg/dl AST 10 L (15-37) U/L ALT 12 (12-78) U/L Alkaline Phosphatase 67 (45-117) U/L Total Protein 5.1 L (6.4-8.2) gm/dl Albumin 1.8 L (3.4-5.0) gm/dl Globulin 3.3 (2.5-4.0) gm/dl Albumin/Globulin Ratio 0.5 L (0.9-2) Bld Cult Staph aureus PCR (Negative) Blood Culture MRSA PCR (Negative) 10/03/19 10/03/19 10/03/19 Range/Units 19:59 17:55 15:59 WBC (4.8-10.8) K/uL RBC (4.2-5.4) M/uL Hgb (12.0-16.0) g/dL Hct (37-47) % MCV (80-100) fL MCH (25-34) pg MCHC (32-36) g/dL RDW Std Deviation (36.4-46.3) fL RDW Coeff of Boris (11.5-14.5) % Plt Count (130-400) K/uL MPV (7.4-10.4) fL Immature Gran % (Auto) % Neut % (Auto) % Lymph % (Auto) % Sanders % (Auto) % Eos % (Auto) % Baso % (Auto) % Immature Gran # (Auto) (0.00-0.02) K/uL Neut # (Auto) (1.4-6.5) K/uL Lymph # (Auto) (1.2-3.4) K/uL Sanders # (Auto) (0.11-0.59) K/uL Eos # (Auto) (0-0.5) K/uL Baso # (Auto) (0-0.2) K/uL Ovalocytes Echinocytes Sample Site POC pH (7.35-7.45) POC pCO2 (35-46) mmHg POC pO2 (80-95) mmHg POC HCO3 (19-24) lena/L POC Total CO2 (24-31) mEq/l POC Base Excess (-9-1.8) lena/L POC ABG O2 Sat (90-95) % Robinson Test O2 Delivery Device POC O2 Rate Minute Ventilation POC FiO2 % Tidal Volume PEEP Sodium 146 H 147 H (136-145) mmol/L Potassium 3.5 3.6 (3.5-5.1) mmol/L Chloride 120 H 120 H (98-107) mmol/L Carbon Dioxide 18 L 18 L (21-32) mmol/L Anion Gap 8.0 8.0 (3-11) BUN 55 H 55 H (7-18) mg/dl Creatinine 2.02 H 2.13 H (0.6-1.2) mg/dl Est Cr Clr Drug Dosing 13.6 12.9 ml/min Est GFR ( Amer) 24.7 23.2 Est GFR (Non-Af Amer) 21.3 20.0 BUN/Creatinine Ratio 27.2 H 26.0 H (10-20) Glucose 116 H 145 H (70-99) mg/dl POC Glucose 137 H (70-99) Calcium 7.5 L 7.6 L (8.5-10.1) mg/dl Phosphorus (2.5-4.9) mg/dl Magnesium (1.8-2.4) mg/dl Total Bilirubin (0.2-1) mg/dl AST (15-37) U/L ALT (12-78) U/L Alkaline Phosphatase (45-117) U/L Total Protein (6.4-8.2) gm/dl Albumin (3.4-5.0) gm/dl Globulin (2.5-4.0) gm/dl Albumin/Globulin Ratio (0.9-2) Bld Cult Staph aureus PCR (Negative) Blood Culture MRSA PCR (Negative) 10/03/19 10/03/19 10/03/19 Range/Units 12:13 11:01 11:01 WBC (4.8-10.8) K/uL RBC (4.2-5.4) M/uL Hgb 9.8 L (12.0-16.0) g/dL Hct 31.5 L (37-47) % MCV (80-100) fL MCH (25-34) pg MCHC (32-36) g/dL RDW Std Deviation (36.4-46.3) fL RDW Coeff of Boris (11.5-14.5) % Plt Count (130-400) K/uL MPV (7.4-10.4) fL Immature Gran % (Auto) % Neut % (Auto) % Lymph % (Auto) % Sanders % (Auto) % Eos % (Auto) % Baso % (Auto) % Immature Gran # (Auto) (0.00-0.02) K/uL Neut # (Auto) (1.4-6.5) K/uL Lymph # (Auto) (1.2-3.4) K/uL Sanders # (Auto) (0.11-0.59) K/uL Eos # (Auto) (0-0.5) K/uL Baso # (Auto) (0-0.2) K/uL Ovalocytes Echinocytes Sample Site POC pH (7.35-7.45) POC pCO2 (35-46) mmHg POC pO2 (80-95) mmHg POC HCO3 (19-24) lena/L POC Total CO2 (24-31) mEq/l POC Base Excess (-9-1.8) lena/L POC ABG O2 Sat (90-95) % Robinson Test O2 Delivery Device POC O2 Rate Minute Ventilation POC FiO2 % Tidal Volume PEEP Sodium 148 H (136-145) mmol/L Potassium 3.8 (3.5-5.1) mmol/L Chloride 121 H (98-107) mmol/L Carbon Dioxide 19 L (21-32) mmol/L Anion Gap 7.0 (3-11) BUN 57 H (7-18) mg/dl Creatinine 2.24 H (0.6-1.2) mg/dl Est Cr Clr Drug Dosing 12.2 ml/min Est GFR ( Amer) 21.8 Est GFR (Non-Af Amer) 18.8 BUN/Creatinine Ratio 25.4 H (10-20) Glucose 154 H (70-99) mg/dl POC Glucose 162 H (70-99) Calcium 8.3 L (8.5-10.1) mg/dl Phosphorus (2.5-4.9) mg/dl Magnesium (1.8-2.4) mg/dl Total Bilirubin (0.2-1) mg/dl AST (15-37) U/L ALT (12-78) U/L Alkaline Phosphatase (45-117) U/L Total Protein (6.4-8.2) gm/dl Albumin (3.4-5.0) gm/dl Globulin (2.5-4.0) gm/dl Albumin/Globulin Ratio (0.9-2) Bld Cult Staph aureus PCR (Negative) Blood Culture MRSA PCR (Negative) 10/02/19 Range/Units 03:24 WBC (4.8-10.8) K/uL RBC (4.2-5.4) M/uL Hgb (12.0-16.0) g/dL Hct (37-47) % MCV (80-100) fL MCH (25-34) pg MCHC (32-36) g/dL RDW Std Deviation (36.4-46.3) fL RDW Coeff of Boris (11.5-14.5) % Plt Count (130-400) K/uL MPV (7.4-10.4) fL Immature Gran % (Auto) % Neut % (Auto) % Lymph % (Auto) % Sanders % (Auto) % Eos % (Auto) % Baso % (Auto) % Immature Gran # (Auto) (0.00-0.02) K/uL Neut # (Auto) (1.4-6.5) K/uL Lymph # (Auto) (1.2-3.4) K/uL Sanders # (Auto) (0.11-0.59) K/uL Eos # (Auto) (0-0.5) K/uL Baso # (Auto) (0-0.2) K/uL Ovalocytes Echinocytes Sample Site POC pH (7.35-7.45) POC pCO2 (35-46) mmHg POC pO2 (80-95) mmHg POC HCO3 (19-24) lena/L POC Total CO2 (24-31) mEq/l POC Base Excess (-9-1.8) lena/L POC ABG O2 Sat (90-95) % Robinson Test O2 Delivery Device POC O2 Rate Minute Ventilation POC FiO2 % Tidal Volume PEEP Sodium (136-145) mmol/L Potassium (3.5-5.1) mmol/L Chloride (98-107) mmol/L Carbon Dioxide (21-32) mmol/L Anion Gap (3-11) BUN (7-18) mg/dl Creatinine (0.6-1.2) mg/dl Est Cr Clr Drug Dosing ml/min Est GFR ( Amer) Est GFR (Non-Af Amer) BUN/Creatinine Ratio (10-20) Glucose (70-99) mg/dl POC Glucose (70-99) Calcium (8.5-10.1) mg/dl Phosphorus (2.5-4.9) mg/dl Magnesium (1.8-2.4) mg/dl Total Bilirubin (0.2-1) mg/dl AST (15-37) U/L ALT (12-78) U/L Alkaline Phosphatase (45-117) U/L Total Protein (6.4-8.2) gm/dl Albumin (3.4-5.0) gm/dl Globulin (2.5-4.0) gm/dl Albumin/Globulin Ratio (0.9-2) Bld Cult Staph aureus PCR Negative (Negative) Blood Culture MRSA PCR Negative (Negative)
[2019-10-04] MEDS: DOXYCYCLINE HYCLATE 100 MG in DEXTROSE 5% 100 ML IV SCH ×2 (11:12→21:56)
[2019-10-04 11:24] LABS: iSTAT Hematocrit 27 % (37-47); iSTAT Hemoglobin 9.2 g/dl (12.0-16.0); iSTAT Potassium 3.6 mEq/L (3.3-5.0); iSTAT Sodium 156 mEq/L (135-144)
[2019-10-04 11:25] LABS: Patient Temperature 36.6; iSTAT Art Bld Gas pCO2 Correct 40 mmHg (35-46); iSTAT Art Bld Gas pH Corrected 7.267 (7.35-7.45); iSTAT Arterial Bld Gas O2 Sat 100; iSTAT Arterial Blood Gas HCO3 19 meg/L (19-24); iSTAT Arterial Blood Gas pCO2 41 mmHg (35-46); iSTAT Arterial Blood Gas pH 7.26 (7.35-7.45); iSTAT Arterial Blood Gas pO2 432 mmHg (80-95); iSTAT Arterial Blood Gas pO2 C 430; iSTAT Carbon Dioxide 20 mEq/l (24-31); iSTAT FiO2 100 %
[2019-10-04 11:26] LABS: iSTAT Allen Test Acceptable; iSTAT Sample Type Arterial; iSTAT Site L Radial; iSTAT SpO2 100
[2019-10-04 12:47] LABS: BUN Creatinine Ratio 25.3 (10-20); Calcium 7.9 mg/dl (8.5-10.1); Creatinine Clr Calc Pharmacy 15.3 ml/min; Est GFR (African American) 28.6; Est GFR (Non-African American) 24.7
[2019-10-04] MEDS: MAGNESIUM SULFATE / D5W 1 GM/100 ML BAG IV SCH ×2 (15:30→16:22)
--- NOTE | 2019-10-04 15:38 | Billing Data ---
Date of Service October 04, 2019 Coding Level of Care Code 87153 Subseq Hosp Care Lvl 2
[2019-10-04 16:40] LABS: BUN Creatinine Ratio 24.9 (10-20); Calcium 7.8 mg/dl (8.5-10.1); Creatinine Clr Calc Pharmacy 16.1 ml/min; Est GFR (African American) 30.5; Est GFR (Non-African American) 26.3; Potassium 3.7 mmol/L (3.5-5.1)
[2019-10-04] MEDS: LATANOPROST 0.005% OP SOLN 2.5 ML BTL OPB SCH (21:56)
[2019-10-04 22:46] LABS: BUN Creatinine Ratio 24.1 (10-20); Calcium 7.9 mg/dl (8.5-10.1); Est GFR (African American) 32.5; Est GFR (Non-African American) 28.1; Potassium 3.3 mmol/L (3.5-5.1)
[2019-10-04] MEDS: POTASSIUM CHLORIDE / WTR 10 MEQ/100 ML PLCT IV SCH (23:55)
[2019-10-05] MEDS: POTASSIUM CHLORIDE / WTR 10 MEQ/100 ML PLCT IV SCH ×2 (01:01→02:16)
[2019-10-05 04:18] LABS: Basophils # (auto) 0.01 K/uL (0-0.2); Eosinophils # (auto) 0.06 K/uL (0-0.5); Eosinophils % (auto) 0.3 %; Hematocrit (blood only) 27.6 % (37-47); Hemoglobin 8.9 g/dL (12.0-16.0); Immature Granulocytes # (auto) 0.15 K/uL (0.00-0.02); Immature Granulocytes % (auto) 0.7 %; Lymphocytes # (auto) 0.52 K/uL (1.2-3.4); Lymphocytes % (auto) 2.5 %; Mean Corpuscular Hgb Conc 32.2 g/dL (32-36); Mean Corpuscular Volume 86.8 fL (80-100); Mean Platelet Volume 8.9 fL (7.4-10.4); Monocytes # (auto) 0.66 K/uL (0.11-0.59); Monocytes % (auto) 3.1 %; Neutrophils # (auto) 19.71 K/uL (1.4-6.5); Neutrophils % (auto) 93.4 %; Platelet Count 263 K/uL (130-400); RDW Coefficient of Variation 15.5 % (11.5-14.5); RDW Standard Deviation 49.1 fL (36.4-46.3); Red Blood Count 3.18 M/uL (4.2-5.4); White Blood Count 21.11 K/uL (4.8-10.8)
[2019-10-05 04:43] LABS: BUN Creatinine Ratio 23.3 (10-20); Calcium 7.5 mg/dl (8.5-10.1); Est GFR (African American) 34.9; Est GFR (Non-African American) 30.1; Magnesium 2.1 mg/dl (1.8-2.4); Phosphorus 2.4 mg/dl (2.5-4.9); Potassium 3.8 mmol/L (3.5-5.1)
[2019-10-05] MEDS: INSULIN ASPART 100 UNITS/ML 3 ML PEN SC SCH (06:04)
--- NOTE | 2019-10-05 07:09 | Billing Data ---
Date of Service October 04, 2019 Coding Level of Care Code Critical Care 1st 30-74 mins Time Spent (min) 45
[2019-10-05] MEDS ORDERED: POTASSIUM PHOS 3 MMOL/1 ML INFUSION IV STA (08:32)
[2019-10-05] MEDS: SODIUM BICARBONATE 8.4% 100 MEQ in DEXTROSE 5% 1,000 ML IV SCH (08:43)
[2019-10-05] MEDS: ASPIRIN 81 MG CHEW PO SCH (08:44)
[2019-10-05] MEDS: METOPROLOL TARTRATE 25 MG TAB PO SCH ×3 (08:45→20:16)
[2019-10-05] MEDS ORDERED: METOPROLOL TARTRATE 1 MG/ML VIAL IV SCH (08:45)
[2019-10-05] MEDS ORDERED: POTASSIUM PHOSPHATE 6 MMOL in 0.9 % SODIUM CHLORIDE 100 ML IV ONE (09:00)
--- NOTE | 2019-10-05 10:35 | Critical Care Progress Note ---
Date of Service October 05, 2019 Assessment & Plan (1) SBO (small bowel obstruction): Reason Critically Ill: 89-year-old female who initially presented from residential with A. fib RVR, hypernatremia, acute hypoxemic respiratory failure Neuro - Altered mental status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, vascular disease, prior CVA in the setting of UTI/sepsis -Patient demented at baseline, able to speak in short sentences but often they don't make sense or are unintelligible -CT head negative for acute process -BUN mildly elevated Patient tolerated extubation well appears to be close to baseline mental status.Speaking short sentences and following commands Cardiac - A. fib RVRpatient with history of PAF Had a run of 20+ beats of V Tach overnight, asymptomatic and vitals remained stable phos and potassium replaced, mag appropriate Will continue to monitor and replace electrolytes as needed Respiratory - Acute hypoxic respiratory failurelikely secondary to aspiration pneumonia -CXR showed right basilar opacity consistent with pneumonia versus atelectasis Bedside ultrasound showed this as well possible secondary to aspiration Patient was maintaining sats well on 2 L nasal cannula, however had consistent tachypnea and increased work of breathing since admission This was likely a combination of her pneumonia/sepsis and compensation for metabolic lactic/hyperchloremic acidosis Proceeded with intubation 10/02 evening extubated 10/04 now oxygenating well on room air GI - Speech Eval completed clearing patient for liquids and puree with preferably small or crushed pills Will resume oral diet today As patient is off dextrose drip, no history of diabetes, will discontinue insulin sliding scale Abdominal tendernessright lower quadrant tenderness with deep palpation CT abdomen revealed possible SBO with large stool burden in colon Has had copious amount of bowel motions overnight and Surgery recommending starting to feed -LFTs within normal limits Abdominal tenderness seems improved bowel movements have slowed down, one semi formed overnight RENAL/LYTES - Acute on chronic kidney diseasebaseline creatinine 1.5 on prior admissions, 2.8 on this admission Pre renal Creatinine improved to baseline with fluid resuscitation -We will continue to trend creatinine -Strict I's and O's -Avoid nephrotoxins Hypernatremia Resolved, back within normal range currently Hypokalemia Hypokalemic this morning at 3.4 will supplement with 20 meq through OG tube prior to intubation -Monitor with routine BMPs - Iniguez insertedstrict I's and O's ENDO - No history diabetes, hemoglobin A1c 5.8 on prior admission No history of thyroid disease Placed on sliding scale insulin while on dextrose drip, since discontinued Will resume oral diet HEME - H&H stable, monitor routine CBCs Due to patient's impaired renal function we will transition from xarelto to renally dosed apixaban, first dose now that she has passed her swallow study ID - Sepsispatient initially febrile with leukocytosis and elevated lactate Pneumonia seen on CXR and bedside ultrasound Pulmonary secretions from ET tube sent for culture Currently on doxycycline and zosyn Blood Cultures aerobic catalase negative staph 1/2 and anaerobic growing 1/2 group A strep these are likely contaminates, will continue abx for now and redraw blood culture. LINES/IV ACCESS - Peripheral IV Right side PICC line DVT PROPHYLAXIS - SCDs, patient on Apixaban Patient stable for transfer to med/surg or med/surg with telemetry today. Supervising Physician Co-Signing Physician Notes Dr. Starkey was the resident-physician during care of patient. I separately evaluated patient for baca portions of the history and the exam. I was present during the critical portion of medical decision making, and I discussed the case with the resident. I generally agree with the findings and plan except for any additions/exceptions noted. Patient seen and examined at bedside. No acute distress. Overnight patient had a run of V. tach 25 beats patient was hemodynamically stable during that time. Patient was not getting her p.o. metoprolol because she was not able to swallow. Changed to metoprolol 2.5 mg IV every 6 hours that she is able to swallow her oral metoprolol. Cardiology consulted. Patient tolerated extubation comfortably yesterday. Patient had multiple bouts of bowel movement which was loose but not watery. WBC count is trending down but still high. C. difficile was ordered which was negative. 1 set of blood culture growing alpha strep which is most likely contaminant. Repeat blood culture has been ordered today. Continue with antibiotic for the time being. Patient's mentation seems to be back at her baseline. She looks at you answers simple questions but is not able to hold a conversation. Patient sodium is improved since coming to the hospital. Patient right now is getting D5 water with bicarbonate given that the patient has RTA. Patient is still n.p.o. as she is not able to swallow properly and there is high risk of aspiration. Swallow evaluation has been ordered for speech with any further recommendations. Palliative care has been consulted. Patient creatinine is improving. Stephen Iniguez. I have personally spent 55 minutes of critical care time in the direct management of this patient. This is a life/limb threatening event. This includes time spent evaluating patient, direct bedside care, chart review, placing orders, interpretation of diagnostic studies, discussion with consultants, patient, and/or family members regarding treatment decisions, as well as other required patient management activities. This time is exclusive of all separately billable procedures, and teaching time and separate from and in addition to any other critical care service time. Jade Rogers is doing well today, awake alert and close to her cognitive baseline. She does not report any distress, she is requesting coffee to the nurse and speaking more clearly than she has been. She was able to participate with a speech evaluation today for swallowing which went well as she did a good job with thin liquids and puree. Review of Systems Review of Systems: All systems reviewed & are unremarkable except as noted in HPI & below Physical Exam Physical Exam: Constitutional: Frail appearing 89 year old woman lying in bed. She is easily rousable and speaking clearly though often inappropriately with her responses Eyes: Anicteric sclerae, pupils equal round and reactive Respiratory: Slightly increased work of breathing, able to speak in sentences, tachypneic, Cardiovascular: Regular rate regular rhythm, systolic ejection murmur, peripheral pulses intact and strong, no lower limb edema, no elevated JVP appreciated GI: Abdomen soft and less tender than it has been. mild tenderness right lower quadrant Skin: Lots of bruising Results & Data Vital Signs (Past 12 Hours) Vital Signs Temp Pulse Resp BP Pulse Ox 10/05/19 08:44 75 121/57 L 10/05/19 07:30 76 10/05/19 06:01 82 26 H 123/54 L 100 10/05/19 05:01 79 21 141/61 H 100 10/05/19 04:01 78 25 H 137/59 L 100 10/05/19 04:00 36.6 C 10/05/19 03:01 76 24 146/59 H 100 10/05/19 02:07 75 25 H 122/56 L 10/05/19 02:01 73 27 H 134/60 100 10/05/19 01:01 73 24 146/59 H 10/05/19 00:01 79 24 134/61 98 10/05/19 00:00 36.8 C 75 10/04/19 23:48 76 28 H 142/57 H 99 Resident Activity Tracking Resident Involvement: Resident Care Provided Care Provided: Adult Hospital Medicine
[2019-10-05] MEDS ORDERED: INSULIN ASPART 100 UNITS/ML 3 ML PEN SC SCH (11:02)
[2019-10-05] MEDS: DOXYCYCLINE HYCLATE 100 MG in DEXTROSE 5% 100 ML IV SCH (11:06)
--- NOTE | 2019-10-05 11:07 | Cardiology Consultation ---
Date of Consultation October 05, 2019 Assessment & Plan (1) Ventricular tachycardia: (2) Paroxysmal A-fib: ASSESSMENT/PLAN: 1. Ventricular tachycardia: Had a run of nonsustained ventricular tachycardia. Difficult to know if she was symptomatic given her mental status. Maintain normal electrolytes. She was slightly hypokalemic overnight but currently within normal limits. She has not been receiving oral metoprolol, but did receive 1 dose of IV metoprolol earlier this morning. She otherwise has not been on beta-carlos alberto during this recent acute illness. Resume beta-carlos alberto. She has passed her swallow eval. Can titrate beta-carlos alberto as necessary. No further evaluation recommended at this time for VT. 2. Paroxysmal atrial fibrillation: She was in AFib with RVR earlier this hospitalization but currently is in sinus. Resuming beta-carlos alberto as above. If no contraindications, anticoagulation for stroke risk reduction. Anticoagulation has already been ordered by the critical care team. 3. Disposition: Please do not hesitate to call the on-call strategic planning consultant this weekend for any questions or concerns. On Tuesday, her primary strategic planning consultant, Dr. Loya, will be available for any questions or concerns. Plan of care discussed with Dr. Starkey, of the primary hospitalist service. Thank you for allowing me to participate in the care of your patient. Please call for any other questions or concerns. Sincerely, Aljeandro Shore M.D. History of Present Illness Reason for Consultation: Ventricular Tachycardia Requesting Physician: Dr. Starkey Attending Physician: Alonso Hylton DO History of Present Illness Ms. Rogers is an 89-year-old female with a history significant for Alzheimer's and vascular dementia, paroxysmal atrial fibrillation, hypertension, dyslipidemia, breast cancer, status post right nephrectomy. She has been seen previously by Dr. Loya for her cardiology concerns. Cardiology was asked to see her in consultation regarding ventricular tachycardia overnight. She was admitted on 10/02/2019 and found to be hypern atremic (improved with fluid), hypoxic thought to be due to aspiration pneumonia, in AFib with RVR, acute on chronic renal insufficiency (improved with fluid resuscitation), and concern for small bowel obstruction. she had had fever and was diagnosed with sepsis. She has had significant diarrhea, reportedly negative for C diff. Earlier this hospitalization, was intubated on mechanical ventilation, but she has since been extubated. She is mostly nonverbal at baseline according to nursing staff and chart. Therefore, she is not able to provide a meaningful history. She did deny pain and shortness of breath, but did not answer all questions. Ventricular tachycardia consisted of approximately 24 beats overnight. Review of systems: Unobtainable due to patient's mental status. Family history: Unobtainable from patient due to mental status. Social history: Obtained by reviewing records. She resides at [facility]. Former smoker. She was alone in her hospital room. Allergies Allergy/AdvReac Type Severity Reaction Status Date / Time morphine AdvReac Unknown hallucinati Verified 10/02/19 03:50 ons Home Medications Home Medications Medication Instructions Recorded Confirmed Type Combivent Respimat 20 - 100 mcg INHALATION Q6H PRN 06/18/18 10/02/19 History Xarelto 15 mg PO DAILY 06/18/18 10/02/19 History acetaminophen [Tylenol] 650 mg PO Q6H PRN 06/18/18 10/02/19 History amlodipine [Norvasc] 10 mg PO DAILY 06/18/18 10/02/19 History aspirin [Aspirin Childrens] 81 mg PO DAILY 06/18/18 10/02/19 History atorvastatin [Lipitor] 20 mg PO DAILY 06/18/18 10/02/19 History metoprolol tartrate 12.5 mg PO BID 06/18/18 10/02/19 History lorazepam 0.25 mg PO Q8 08/16/18 10/02/19 History azithromycin 250 mg PO DAILY 10/02/19 10/02/19 History hydrocortisone 2.5 % MN Q8 PRN 10/02/19 10/02/19 History ipratropium-albuterol 3 ml INHALATION Q4 PRN 10/02/19 10/02/19 History latanoprost 1 drp OPB DAILY 10/02/19 10/02/19 History menthol-zinc oxide [Calmoseptine] 1 applic TOPICAL QS 10/02/19 10/02/19 History venlafaxine 150 mg PO DAILY 10/02/19 10/02/19 History Patient History Medical History Acute encephalopathy H/0 Acute kidney injury H/0 Altered mental status Atrial fibrillation Chronic back pain CVA (cerebral vascular accident) Dysphagia History of fall History of fracture of left hip History of fracture of right hip Hyperlexia (Chronic) Hyperlipidemia Hypertension (Chronic) Iron deficiency anemia Osteoporosis Osteoporosis Rhabdomyolysis H/O Surgical History History of cataract surgery LEFT History of hip surgery LEFT Family History (Updated 10/02/19 @ 03:47 by Tito Martinez) Other Family history non-contributory Social History Preferred Language: Slovak Communication Ability: Unable 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 Alert. Oriented to self however she uses a different last name. Does not answer all questions appropriately and sometimes does not answer. HEENT: Anicteric sclera. Neck: No JVD. No bruits. Normal carotid upstrokes bilaterally. Cardiac: PMI was nondisplaced. No ventricular heave. Regular. Normal S1-S2. No murmurs, rubs, or gallops. Pulmonary: Clear to auscultation bilaterally without wheezes, rales, or rhonchi. Abdomen: Soft, nontender, nondistended, with normoactive bowel sounds. No bruits noted. Extremities: 2+ radial pulses bilaterally. 2+ posterior tibialis pulses bilaterally. Ecchymosis distal upper extremities bilaterally. Trace bilateral lower extremity edema independent areas. No cyanosis. Results & Data Vital Signs (Past 12 Hours) Vital Signs Temp Pulse Resp BP Pulse Ox 10/05/19 08:44 75 121/57 L 10/05/19 07:30 76 10/05/19 06:01 82 26 H 123/54 L 100 10/05/19 05:01 79 21 141/61 H 100 10/05/19 04:01 78 25 H 137/59 L 100 10/05/19 04:00 36.6 C 10/05/19 03:01 76 24 146/59 H 100 10/05/19 02:07 75 25 H 122/56 L 10/05/19 02:01 73 27 H 134/60 100 10/05/19 01:01 73 24 146/59 H 10/05/19 00:01 79 24 134/61 98 10/05/19 00:00 36.8 C 75 10/04/19 23:48 76 28 H 142/57 H 99 Laboratory Results Laboratory Results - last 24 hr 10/02/19 10/04/19 10/04/19 16:31 11:49 11:53 WBC RBC Hgb POC Hgb 9.2 L Hct POC Hct 27 L MCV MCH MCHC RDW Std Deviation RDW Coeff of Boris Plt Count MPV Immature Gran % (Auto) Neut % (Auto) Lymph % (Auto) Harlan % (Auto) Eos % (Auto) Baso % (Auto) Immature Gran # (Auto) Neut # (Auto) Lymph # (Auto) Harlan # (Auto) Eos # (Auto) Baso # (Auto) Specimen Type Arterial Sample Site L Radial Patient Temperature 36.6 POC pH 7.26 L POC pCO2 41 POC pO2 432 H POC HCO3 19 POC Total CO2 20 L POC Base Excess -9.0 POC O2 Saturation 100 O2 Sat Pulse Oximetry 100 ABG pH (Temp Correct) 7.267 L ABG pCO2 (Temp Corrct 40 POC ABG pO2 at Pt Temp 430 Robinson Test Acceptable O2 Delivery Device Ventilator POC O2 Rate 26 Minute Ventilation 10.5 Vent Mode AC POC FiO2 100 Tidal Volume 400 End Tidal CO2 22 PEEP 5 POC Sodium 156 H* Sodium 141 POC Potassium 3.6 Potassium 4.0 D Chloride 116 H Carbon Dioxide 18 L Anion Gap 8.0 BUN 45 H Creatinine 1.79 H Est Cr Clr Drug Dosing 15.3 Est GFR ( Amer) 28.6 Est GFR (Non-Af Amer) 24.7 BUN/Creatinine Ratio 25.3 H Glucose 100 H POC Glucose 109 H Calcium 7.9 L Phosphorus Magnesium Stl C. diff Tox B Gene 10/04/19 10/04/19 10/04/19 16:15 22:24 23:41 WBC RBC Hgb POC Hgb Hct POC Hct MCV MCH MCHC RDW Std Deviation RDW Coeff of Boris Plt Count MPV Immature Gran % (Auto) Neut % (Auto) Lymph % (Auto) Harlan % (Auto) Eos % (Auto) Baso % (Auto) Immature Gran # (Auto) Neut # (Auto) Lymph # (Auto) Harlan # (Auto) Eos # (Auto) Baso # (Auto) Specimen Type Sample Site Patient Temperature POC pH POC pCO2 POC pO2 POC HCO3 POC Total CO2 POC Base Excess POC O2 Saturation O2 Sat Pulse Oximetry ABG pH (Temp Correct) ABG pCO2 (Temp Corrct POC ABG pO2 at Pt Temp Robinson Test O2 Delivery Device POC O2 Rate Minute Ventilation Vent Mode POC FiO2 Tidal Volume End Tidal CO2 PEEP POC Sodium Sodium 140 140 POC Potassium Potassium 3.7 3.3 L Chloride 115 H 114 H Carbon Dioxide 18 L 20 L Anion Gap 8.0 7.0 BUN 42 H 39 H Creatinine 1.70 H 1.61 H Est Cr Clr Drug Dosing 16.1 17.0 Est GFR ( Amer) 30.5 32.5 Est GFR (Non-Af Amer) 26.3 28.1 BUN/Creatinine Ratio 24.9 H 24.1 H Glucose 112 H 101 H POC Glucose 32 L* Calcium 7.8 L 7.9 L Phosphorus Magnesium Stl C. diff Tox B Gene 10/04/19 10/04/19 10/05/19 23:42 23:49 00:09 WBC RBC Hgb POC Hgb Hct POC Hct MCV MCH MCHC RDW Std Deviation RDW Coeff of Boris Plt Count MPV Immature Gran % (Auto) Neut % (Auto) Lymph % (Auto) Harlan % (Auto) Eos % (Auto) Baso % (Auto) Immature Gran # (Auto) Neut # (Auto) Lymph # (Auto) Harlan # (Auto) Eos # (Auto) Baso # (Auto) Specimen Type Sample Site Patient Temperature POC pH POC pCO2 POC pO2 POC HCO3 POC Total CO2 POC Base Excess POC O2 Saturation O2 Sat Pulse Oximetry ABG pH (Temp Correct) ABG pCO2 (Temp Corrct POC ABG pO2 at Pt Temp Robinson Test O2 Delivery Device POC O2 Rate Minute Ventilation Vent Mode POC FiO2 Tidal Volume End Tidal CO2 PEEP POC Sodium Sodium POC Potassium Potassium Chloride Carbon Dioxide Anion Gap BUN Creatinine Est Cr Clr Drug Dosing Est GFR ( Amer) Est GFR (Non-Af Amer) BUN/Creatinine Ratio Glucose 110 H POC Glucose 36 L* 58 L* Calcium Phosphorus Magnesium Stl C. diff Tox B Gene 10/05/19 10/05/19 10/05/19 00:13 00:14 03:55 WBC RBC Hgb POC Hgb Hct POC Hct MCV MCH MCHC RDW Std Deviation RDW Coeff of Boris Plt Count MPV Immature Gran % (Auto) Neut % (Auto) Lymph % (Auto) Harlan % (Auto) Eos % (Auto) Baso % (Auto) Immature Gran # (Auto) Neut # (Auto) Lymph # (Auto) Harlan # (Auto) Eos # (Auto) Baso # (Auto) Specimen Type Sample Site Patient Temperature POC pH POC pCO2 POC pO2 POC HCO3 POC Total CO2 POC Base Excess POC O2 Saturation O2 Sat Pulse Oximetry ABG pH (Temp Correct) ABG pCO2 (Temp Corrct POC ABG pO2 at Pt Temp Robinson Test O2 Delivery Device POC O2 Rate Minute Ventilation Vent Mode POC FiO2 Tidal Volume End Tidal CO2 PEEP POC Sodium Sodium 139 POC Potassium Potassium 3.8 D Chloride 112 H Carbon Dioxide 22 Anion Gap 5.0 BUN 35 H Creatinine 1.52 H Est Cr Clr Drug Dosing 18.0 Est GFR ( Amer) 34.9 Est GFR (Non-Af Amer) 30.1 BUN/Creatinine Ratio 23.3 H Glucose 135 H POC Glucose 303 H* 110 H Calcium 7.5 L Phosphorus 2.4 L Magnesium 2.1 Stl C. diff Tox B Gene 10/05/19 10/05/19 10/05/19 03:55 05:53 08:15 WBC 21.11 H RBC 3.18 L Hgb 8.9 L POC Hgb Hct 27.6 L POC Hct MCV 86.8 MCH 28.0 MCHC 32.2 RDW Std Deviation 49.1 H RDW Coeff of Boris 15.5 H Plt Count 263 MPV 8.9 Immature Gran % (Auto) 0.7 Neut % (Auto) 93.4 Lymph % (Auto) 2.5 Harlan % (Auto) 3.1 Eos % (Auto) 0.3 Baso % (Auto) 0.0 Immature Gran # (Auto) 0.15 H Neut # (Auto) 19.71 H Lymph # (Auto) 0.52 L Harlan # (Auto) 0.66 H Eos # (Auto) 0.06 Baso # (Auto) 0.01 Specimen Type Sample Site Patient Temperature POC pH POC pCO2 POC pO2 POC HCO3 POC Total CO2 POC Base Excess POC O2 Saturation O2 Sat Pulse Oximetry ABG pH (Temp Correct) ABG pCO2 (Temp Corrct POC ABG pO2 at Pt Temp Robinson Test O2 Delivery Device POC O2 Rate Minute Ventilation Vent Mode POC FiO2 Tidal Volume End Tidal CO2 PEEP POC Sodium Sodium POC Potassium Potassium Chloride Carbon Dioxide Anion Gap BUN Creatinine Est Cr Clr Drug Dosing Est GFR ( Amer) Est GFR (Non-Af Amer) BUN/Creatinine Ratio Glucose POC Glucose 101 H Calcium Phosphorus Magnesium Stl C. diff Tox B Gene Negative Cdiff Gene 10/05/19 10:29 WBC RBC Hgb POC Hgb Hct POC Hct MCV MCH MCHC RDW Std Deviation RDW Coeff of Boris Plt Count MPV Immature Gran % (Auto) Neut % (Auto) Lymph % (Auto) Harlan % (Auto) Eos % (Auto) Baso % (Auto) Immature Gran # (Auto) Neut # (Auto) Lymph # (Auto) Harlan # (Auto) Eos # (Auto) Baso # (Auto) Specimen Type Sample Site Patient Temperature POC pH POC pCO2 POC pO2 POC HCO3 POC Total CO2 POC Base Excess POC O2 Saturation O2 Sat Pulse Oximetry ABG pH (Temp Correct) ABG pCO2 (Temp Corrct POC ABG pO2 at Pt Temp Robinson Test O2 Delivery Device POC O2 Rate Minute Ventilation Vent Mode POC FiO2 Tidal Volume End Tidal CO2 PEEP POC Sodium Sodium 140 POC Potassium Potassium 3.6 Chloride 113 H Carbon Dioxide 23 Anion Gap 4.0 BUN 31 H Creatinine 1.42 H Est Cr Clr Drug Dosing 19.3 Est GFR ( Amer) 37.9 Est GFR (Non-Af Amer) 32.7 BUN/Creatinine Ratio 21.9 H Glucose 98 POC Glucose Calcium 7.6 L Phosphorus Magnesium Stl C. diff Tox B Gene Diagnostic Findings Telemetry personally reviewed: Sinus rhythm currently. Had a 24 beat run of VT overnight. ECG personally reviewed: ECG 10/05/2019 at 8:54 a.m.: Sinus rhythm 68 bpm. LVH with repolarization abnormalities. ECG 10/02/2019 at 7:18 a.m.: AFib with RVR 124 bpm. LVH with repolarization abnormality. Anterior ST/T-wave abnormality. Echo 06/19/2018: Hyperdynamic LV systolic function. EF >70%. Mild LVH. Normal wall motion. Mild left atrial dilation. Sclerotic aortic valve without stenosis. Mild to moderate AI. Chest CT 10/03/2019: Mild emphysema. Mild interstitial pulmonary edema per Radiology. Small right and trace left pleural effusion. Secretions within right lower lobe segmental bronchi. Bibasilar opacities. Mild right upper lobe airspace opacity. Extensive coronary artery calcification. Medications Administered Current Inpatient Medications Albuterol (Duoneb) 3 ml NEB Q4R PRN PRN Reason: Shortness Of Breath Or Wheezing Stop: 11/01/19 10:59 Apixaban (Eliquis) 2.5 mg PO BID LISA Stop: 11/04/19 11:14 Aspirin (Aspirin Chew) 81 mg PO DAILY LISA Stop: 11/01/19 08:59 Last Admin: 10/05/19 08:44 Dose: Not Given Documented by: Dextrose (Dextrose 50%) 25 - 50 ml IV UD PRN; Protocol PRN Reason: Hypoglycemia Protocol Stop: 11/01/19 08:44 Last Admin: 10/04/19 23:54 Dose: 50 ml Documented by: Glucagon (Glucagen) 1 mg IM UD PRN; Protocol PRN Reason: Hypoglycemia Protocol Stop: 11/01/19 08:44 Glucose (Glucose 40%) 15 - 30 gm PO UD PRN; Protocol PRN Reason: Hypoglycemia Protocol Stop: 11/01/19 08:44 Glucose (Dex4 Glucose) 4 - 8 tabs PO UD PRN; Protocol PRN Reason: Hypoglycemia Protocol Stop: 11/01/19 08:44 Piperacillin Sod/Tazobactam (Sod 4.5 gm/ Dextrose) 120 mls @ 30 mls/hr IV Q12H LISA; Protocol Stop: 10/09/19 11:59 Last Infusion: 10/05/19 03:55 Dose: Infused Documented by: Doxycycline Hyclate 100 mg/ (Dextrose) 110 mls @ 50 mls/hr IV Q12H LISA Stop: 10/07/19 01:11 Last Admin: 10/05/19 11:06 Dose: 50 mls/hr Documented by: Latanoprost (Xalatan Oph) 1 drops OPB HS LISA Stop: 11/01/19 20:59 Last Admin: 10/04/19 21:56 Dose: 1 drops Documented by: Metoprolol Tartrate (Lopressor) 12.5 mg PO BID [facility] Stop: 11/01/19 20:59 Last Admin: 10/05/19 08:45 Dose: Not Given Documented by: Miscellaneous (Carbohydrates For Hypoglycemia) 15 - 30 gm PO UD PRN PRN Reason: Hypoglycemia Treatment Stop: 11/01/19 08:44 Miscellaneous Information (Consult) 1 ea N/A UD PRN PRN Reason: Consult Stop: 11/01/19 06:02 Venlafaxine HCl (Effexor Extended Release) 150 mg PO DAILY [facility] Stop: 11/01/19 08:59 Last Admin: 10/02/19 07:52 Dose: Not Given Documented by: PG Care Time/CCT Total # of Minutes Spent Total Time Spent with Patient: Total time spent is greater than 50% in coordination of care (as documented) at patient's floor/unit and/or counseling patient:
[2019-10-05 11:18] LABS: BUN Creatinine Ratio 21.9 (10-20); Calcium 7.6 mg/dl (8.5-10.1); Creatinine Clr Calc Pharmacy 19.3 ml/min; Est GFR (African American) 37.9; Est GFR (Non-African American) 32.7; Potassium 3.6 mmol/L (3.5-5.1)
[2019-10-05] MEDS: APIXABAN 2.5 MG TAB PO SCH ×2 (12:24→20:14)
[2019-10-05] MEDS: PIPERACILLIN/TAZOBACTAM 4.5 GM in DEXTROSE 5% 100 ML IV SCH (12:24)
--- NOTE | 2019-10-05 13:39 | Hospitalist Progress Note ---
Date of Service October 05, 2019 Assessment & Plan (1) Atrial fibrillation with RVR: 89-year-old female was admitted on 02 October 2019 for tachycardia, hypernatremia, dehydration, acute on chronic kidney injury, and possible ongoing aspiration pneumonia. Patient is relatively nonverbal at baseline and is noncontributory to history. A. fib RVR: - patient with history of PAF - Given IV metoprolol with improvement in rate and hemodynamics; continue oral metoprolol to IV - Continue Xarelto - Monitor on telemetry: consider IV Cardizem drip if returns to uncontrollable rhythm Sepsis: - patient febrile with leukocytosis and elevated lactate - Pulmonary or urine source likely, cannot rule out abdominal source at this time - Patient diagnosed 3 days ago with aspiration pneumonia and did 3 days of azithromycin - Received Levaquin and Vanco in ED; Zosyn added to cover Pseudomonas - Blood Cultures NGTD after 24 urine Altered mental status: - 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, vascular disease, prior CVA in the setting of UTI/sepsis - Patient functionally nonverbal at baseline - Ammonia within normal limits, CO2 30 - CT head negative for acute process - BUN mildly elevated - Frequent neuro exams, monitor Acute hypoxic respiratory failure: - likely secondary to aspiration pneumonia - CXR showed right basilar opacity consistent with pneumonia versus atelectasis - No history COPD or asthma - See antibiotic regimen - Patient currently intubated, with improving blood gases overnight - PRN DuoNeb - Infleunza PCR negative - Continuous to monitor oxygen saturations Abdominal tenderness: (resolved) - right lower quadrant tenderness with deep palpation - CT abdomen: demonstrated likely partial small bowel obstruction Acute on chronic kidney disease: - baseline creatinine 1.5 on prior admissions, 2.8 on this admission - continue hydration - Avoid nephrotoxins Hypernatremia/Hypokalemia: - patient euvolemic and bolused with 1 L NS in ED, will give additional 1 L NS and reassess - trended down, and has remained w/in normal limits since returned to hydration Code status: Full code Diet: Regular DVT prophy: Xarelto (2) Sepsis: (3) Hypernatremia: (4) Hypoxia: (5) Anemia: (6) Elevated INR: (7) Hypokalemia: (8) [id number] kidney injury: (9) Hypertension: (10) HLD (hyperlipidemia): (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 sleeping comfortably. no HPI or ROS obtainable at this time Vitals noted, in general she is laying in bed very still but appears in no distress. HEENT normocephalic atraumatic mucous membranes are moist. breathing unlabored no accessory muscles good effort. no rashes no pallor or icterus. A/P: 1. acute hypoxic respiratory failure - 2nd to RLL aspiration pneumonia; seems to be improving. on RA. continue current antibiotics. stable for transfer out of ICU. 2. hypernatremic dehydration - improved w/ fluids. Continue to follow fluid status but Na has normalized 3. partial SBO -surgical input appreciated. Continue supportive care. 4. 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 Serial BMP. Improved 5. sepsis - 2nd to #1 - supportive care, treat pneumonia, etc. improving 6. a. fib with RVR -rate is controlled, baseline anticoagulation with Xarelto. 7. RLL pneumonia - likely due to aspiration in setting of dysphagia from dementia. 8. dementia - severe at baseline by history. stable for transfer out of ICU Subjective Patient is much more responsive this morning, able to indicated verbally that she is not in pain. Seems more likely to be closer to her baseline than prior days. Worked with speech therapy this morning, who indicated that with pureed foods she did well, and her diet could be advanced. Review of Systems Review of Systems: Unobtainable due to cognitive status Physical Exam Constitutional: + frail appearing Eyes: PERRL, conjunctivae normal, anicteric sclerae Respiratory: symmetric chest movement; no retractions Auscultation: + crackles and + wheezes; no rales Cardiovascular: Rate/Rhythm: regular rate and + tachycardic; + abnormal rhythm Heart Sounds: no gallop, no murmur and no cardiac rub Extremities: no edema Gastrointestinal (Abdomen): normal bowel sounds, soft, nontender, no hepatosplenomegaly Inspection/Auscultation: normal bowel sounds Percussion/Palpation: no hepatosplenomegaly and no abdominal mass Skin: no rashes, warm and dry Psychiatric: Orientation: alert Apperance: + disheveled Eye Contact: good eye contact Results & Data Vital Signs (Past 12 Hours) Vital Signs Temp Pulse Resp BP Pulse Ox 10/05/19 08:44 75 121/57 L 10/05/19 07:30 76 10/05/19 06:01 82 26 H 123/54 L 100 10/05/19 05:01 79 21 141/61 H 100 10/05/19 04:01 78 25 H 137/59 L 100 10/05/19 04:00 36.6 C 10/05/19 03:01 76 24 146/59 H 100 10/05/19 02:07 75 25 H 122/56 L 10/05/19 02:01 73 27 H 134/60 100 Laboratory Results 10/05/19 10/05/19 10/05/19 Range/Units 10:29 08:15 05:53 WBC (4.8-10.8) K/uL RBC (4.2-5.4) M/uL Hgb (12.0-16.0) g/dL Hct (37-47) % MCV (80-100) fL MCH (25-34) pg MCHC (32-36) g/dL RDW Std Deviation (36.4-46.3) fL RDW Coeff of Boris (11.5-14.5) % Plt Count (130-400) K/uL MPV (7.4-10.4) fL Immature Gran % (Auto) % Neut % (Auto) % Lymph % (Auto) % [place] % (Auto) % Eos % (Auto) % Baso % (Auto) % Immature Gran # (Auto) (0.00-0.02) K/uL Neut # (Auto) (1.4-6.5) K/uL Lymph # (Auto) (1.2-3.4) K/uL [place] # (Auto) (0.11-0.59) K/uL Eos # (Auto) (0-0.5) K/uL Baso # (Auto) (0-0.2) K/uL Sodium 140 (136-145) mmol/L Potassium 3.6 (3.5-5.1) mmol/L Chloride 113 H (98-107) mmol/L Carbon Dioxide 23 (21-32) mmol/L Anion Gap 4.0 (3-11) BUN 31 H (7-18) mg/dl Creatinine 1.42 H (0.6-1.2) mg/dl Est Cr Clr Drug Dosing 19.3 ml/min Est GFR ( Amer) 37.9 Est GFR (Non-Af Amer) 32.7 BUN/Creatinine Ratio 21.9 H (10-20) Glucose 98 (70-99) mg/dl POC Glucose 101 H (70-99) Calcium 7.6 L (8.5-10.1) mg/dl Phosphorus (2.5-4.9) mg/dl Magnesium (1.8-2.4) mg/dl Stl C. diff Tox B Gene Negative Cdiff Gene (Neg) 10/05/19 10/05/19 10/05/19 Range/Units 03:55 03:55 00:14 WBC 21.11 H (4.8-10.8) K/uL RBC 3.18 L (4.2-5.4) M/uL Hgb 8.9 L (12.0-16.0) g/dL Hct 27.6 L (37-47) % MCV 86.8 (80-100) fL MCH 28.0 (25-34) pg MCHC 32.2 (32-36) g/dL RDW Std Deviation 49.1 H (36.4-46.3) fL RDW Coeff of Boris 15.5 H (11.5-14.5) % Plt Count 263 (130-400) K/uL MPV 8.9 (7.4-10.4) fL Immature Gran % (Auto) 0.7 % Neut % (Auto) 93.4 % Lymph % (Auto) 2.5 % [place] % (Auto) 3.1 % Eos % (Auto) 0.3 % Baso % (Auto) 0.0 % Immature Gran # (Auto) 0.15 H (0.00-0.02) K/uL Neut # (Auto) 19.71 H (1.4-6.5) K/uL Lymph # (Auto) 0.52 L (1.2-3.4) K/uL [place] # (Auto) 0.66 H (0.11-0.59) K/uL Eos # (Auto) 0.06 (0-0.5) K/uL Baso # (Auto) 0.01 (0-0.2) K/uL Sodium 139 (136-145) mmol/L Potassium 3.8 D (3.5-5.1) mmol/L Chloride 112 H (98-107) mmol/L Carbon Dioxide 22 (21-32) mmol/L Anion Gap 5.0 (3-11) BUN 35 H (7-18) mg/dl Creatinine 1.52 H (0.6-1.2) mg/dl Est Cr Clr Drug Dosing 18.0 ml/min Est GFR ( Amer) 34.9 Est GFR (Non-Af Amer) 30.1 BUN/Creatinine Ratio 23.3 H (10-20) Glucose 135 H (70-99) mg/dl POC Glucose 110 H (70-99) Calcium 7.5 L (8.5-10.1) mg/dl Phosphorus 2.4 L (2.5-4.9) mg/dl Magnesium 2.1 (1.8-2.4) mg/dl Stl C. diff Tox B Gene (Neg) 10/05/19 10/05/19 10/04/19 Range/Units 00:13 00:09 23:49 WBC (4.8-10.8) K/uL RBC (4.2-5.4) M/uL Hgb (12.0-16.0) g/dL Hct (37-47) % MCV (80-100) fL MCH (25-34) pg MCHC (32-36) g/dL RDW Std Deviation (36.4-46.3) fL RDW Coeff of Boris (11.5-14.5) % Plt Count (130-400) K/uL MPV (7.4-10.4) fL Immature Gran % (Auto) % Neut % (Auto) % Lymph % (Auto) % [place] % (Auto) % Eos % (Auto) % Baso % (Auto) % Immature Gran # (Auto) (0.00-0.02) K/uL Neut # (Auto) (1.4-6.5) K/uL Lymph # (Auto) (1.2-3.4) K/uL [place] # (Auto) (0.11-0.59) K/uL Eos # (Auto) (0-0.5) K/uL Baso # (Auto) (0-0.2) K/uL Sodium (136-145) mmol/L Potassium (3.5-5.1) mmol/L Chloride (98-107) mmol/L Carbon Dioxide (21-32) mmol/L Anion Gap (3-11) BUN (7-18) mg/dl Creatinine (0.6-1.2) mg/dl Est Cr Clr Drug Dosing ml/min Est GFR ( Amer) Est GFR (Non-Af Amer) BUN/Creatinine Ratio (10-20) Glucose 110 H (70-99) mg/dl POC Glucose 303 H* 58 L* (70-99) Calcium (8.5-10.1) mg/dl Phosphorus (2.5-4.9) mg/dl Magnesium (1.8-2.4) mg/dl Stl C. diff Tox B Gene (Neg) 10/04/19 10/04/19 10/04/19 Range/Units 23:42 23:41 22:24 WBC (4.8-10.8) K/uL RBC (4.2-5.4) M/uL Hgb (12.0-16.0) g/dL Hct (37-47) % MCV (80-100) fL MCH (25-34) pg MCHC (32-36) g/dL RDW Std Deviation (36.4-46.3) fL RDW Coeff of Boris (11.5-14.5) % Plt Count (130-400) K/uL MPV (7.4-10.4) fL Immature Gran % (Auto) % Neut % (Auto) % Lymph % (Auto) % [place] % (Auto) % Eos % (Auto) % Baso % (Auto) % Immature Gran # (Auto) (0.00-0.02) K/uL Neut # (Auto) (1.4-6.5) K/uL Lymph # (Auto) (1.2-3.4) K/uL [place] # (Auto) (0.11-0.59) K/uL Eos # (Auto) (0-0.5) K/uL Baso # (Auto) (0-0.2) K/uL Sodium 140 (136-145) mmol/L Potassium 3.3 L (3.5-5.1) mmol/L Chloride 114 H (98-107) mmol/L Carbon Dioxide 20 L (21-32) mmol/L Anion Gap 7.0 (3-11) BUN 39 H (7-18) mg/dl Creatinine 1.61 H (0.6-1.2) mg/dl Est Cr Clr Drug Dosing 17.0 ml/min Est GFR ( Amer) 32.5 Est GFR (Non-Af Amer) 28.1 BUN/Creatinine Ratio 24.1 H (10-20) Glucose 101 H (70-99) mg/dl POC Glucose 36 L* 32 L* (70-99) Calcium 7.9 L (8.5-10.1) mg/dl Phosphorus (2.5-4.9) mg/dl Magnesium (1.8-2.4) mg/dl Stl C. diff Tox B Gene (Neg) Medications Administered Current Inpatient Medications Albuterol (Duoneb) 3 ml NEB Q4R PRN PRN Reason: Shortness Of Breath Or Wheezing Stop: 11/01/19 10:59 Apixaban (Eliquis) 2.5 mg PO BID [facility] Stop: 11/04/19 11:14 Last Admin: 10/05/19 12:24 Dose: 2.5 mg Documented by: Aspirin (Aspirin Chew) 81 mg PO DAILY [facility] Stop: 11/01/19 08:59 Last Admin: 10/05/19 08:44 Dose: Not Given Documented by: Dextrose (Dextrose 50%) 25 - 50 ml IV UD PRN; Protocol PRN Reason: Hypoglycemia Protocol Stop: 11/01/19 08:44 Last Admin: 10/04/19 23:54 Dose: 50 ml Documented by: Glucagon (Glucagen) 1 mg IM UD PRN; Protocol PRN Reason: Hypoglycemia Protocol Stop: 11/01/19 08:44 Glucose (Glucose 40%) 15 - 30 gm PO UD PRN; Protocol PRN Reason: Hypoglycemia Protocol Stop: 11/01/19 08:44 Glucose (Dex4 Glucose) 4 - 8 tabs PO UD PRN; Protocol PRN Reason: Hypoglycemia Protocol Stop: 11/01/19 08:44 Piperacillin Sod/Tazobactam (Sod 4.5 gm/ Dextrose) 120 mls @ 30 mls/hr IV Q12H [facility]; Protocol Stop: 10/09/19 11:59 Last Admin: 10/05/19 12:24 Dose: 30 mls/hr Documented by: Doxycycline Hyclate 100 mg/ (Dextrose) 110 mls @ 50 mls/hr IV Q12H [facility] Stop: 10/07/19 01:11 Last Infusion: 10/05/19 13:37 Dose: Infused Documented by: Latanoprost (Xalatan Oph) 1 drops OPB HS [facility] Stop: 11/01/19 20:59 Last Admin: 10/04/19 21:56 Dose: 1 drops Documented by: Metoprolol Tartrate (Lopressor) 12.5 mg PO BID [facility] Stop: 11/01/19 20:59 Last Admin: 10/05/19 08:45 Dose: Not Given Documented by: Miscellaneous (Carbohydrates For Hypoglycemia) 15 - 30 gm PO UD PRN PRN Reason: Hypoglycemia Treatment Stop: 11/01/19 08:44 Miscellaneous Information (Consult) 1 ea N/A UD PRN PRN Reason: Consult Stop: 11/01/19 06:02 Venlafaxine HCl (Effexor Extended Release) 150 mg PO DAILY [facility] Stop: 11/01/19 08:59 Last Admin: 10/02/19 07:52 Dose: Not Given Documented by: Resident Activity Tracking Resident Involvement: Resident Care Provided Care Provided: Adult Hospital Medicine
--- NOTE | 2019-10-05 16:18 | Billing Data ---
Date of Service October 05, 2019 Coding Level of Care Code 78199 Subseq Hosp Care Lvl 2
--- NOTE | 2019-10-05 16:32 | Billing Data ---
Date of Service October 05, 2019 Coding Level of Care Code Critical Care 1st 30-74 mins Time Spent (min) 55
[2019-10-05] MEDS: LATANOPROST 0.005% OP SOLN 2.5 ML BTL OPB SCH (20:14)
[2019-10-06] MEDS: PIPERACILLIN/TAZOBACTAM 4.5 GM in DEXTROSE 5% 100 ML IV SCH ×2 (00:22→13:14)
[2019-10-06] MEDS: DOXYCYCLINE HYCLATE 100 MG in DEXTROSE 5% 100 ML IV SCH ×3 (00:22→22:00)
[2019-10-06] MEDS: APIXABAN 2.5 MG TAB PO SCH ×2 (08:28→21:55)
[2019-10-06] MEDS: ASPIRIN 81 MG CHEW PO SCH (08:29)
[2019-10-06] MEDS: METOPROLOL TARTRATE 25 MG TAB PO SCH ×2 (08:30→21:30)
[2019-10-06 08:52] LABS: BUN Creatinine Ratio 20.7 (10-20); Calcium 8.4 mg/dl (8.5-10.1); Creatinine Clr Calc Pharmacy 18.4 ml/min; Est GFR (African American) 35.7; Est GFR (Non-African American) 30.8; Potassium 3.3 mmol/L (3.5-5.1)
[2019-10-06 08:56] LABS: Basophils # (auto) 0.01 K/uL (0-0.2); Basophils % (auto) 0.1 %; Eosinophils # (auto) 0.03 K/uL (0-0.5); Eosinophils % (auto) 0.2 %; Hematocrit (blood only) 30.2 % (37-47); Hemoglobin 9.7 g/dL (12.0-16.0); Immature Granulocytes % (auto) 1.2 %; Lymphocytes # (auto) 0.83 K/uL (1.2-3.4); Lymphocytes % (auto) 4.9 %; Mean Corpuscular Hemoglobin 27.2 pg (25-34); Mean Corpuscular Volume 84.8 fL (80-100); Mean Platelet Volume 8.8 fL (7.4-10.4); Monocytes % (auto) 4.7 %; Neutrophils # (auto) 15.19 K/uL (1.4-6.5); Neutrophils % (auto) 88.9 %; Platelet Count 274 K/uL (130-400); RDW Coefficient of Variation 15.4 % (11.5-14.5); RDW Standard Deviation 47.2 fL (36.4-46.3); Red Blood Count 3.56 M/uL (4.2-5.4); White Blood Count 17.06 K/uL (4.8-10.8)
[2019-10-06] MEDS: VENLAFAXINE HCL XR 150 MG CAPXR PO SCH (08:59)
[2019-10-06 09:11] LABS: Mean Corpuscular Hgb Conc 32.1 g/dL (32-36)
[2019-10-06] MEDS ORDERED: SODIUM CHLORIDE 0.9% 1000ML 1,000 ML IV SCH (10:30)
--- NOTE | 2019-10-06 16:42 | Hospitalist Progress Note ---
Date of Service October 06, 2019 Assessment & Plan (1) Atrial fibrillation with RVR: 89-year-old female was admitted on 02 October 2019 for tachycardia, hypernatremia, dehydration, acute on chronic kidney injury, and possible ongoing aspiration pneumonia. Patient is relatively nonverbal at baseline and is noncontributory to history. A. fib RVR: - patient with history of PAF - Given IV metoprolol with improvement in rate and hemodynamics; continue oral metoprolol to IV - Continue Xarelto - Monitor on telemetry: consider IV Cardizem drip if returns to uncontrollable rhythm Sepsis: - patient febrile with leukocytosis and elevated lactate - Pulmonary or urine source likely, cannot rule out abdominal source at this time - Patient diagnosed 3 days ago with aspiration pneumonia and did 3 days of azithromycin - Received Levaquin and Vanco in ED; Zosyn added to cover Pseudomonas - Blood Cultures NGTD after 24 urine Altered mental status: - 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, vascular disease, prior CVA in the setting of UTI/sepsis - Patient functionally nonverbal at baseline - Ammonia within normal limits, CO2 30 - CT head negative for acute process - BUN mildly elevated - Frequent neuro exams, monitor Acute hypoxic respiratory failure: - likely secondary to aspiration pneumonia - CXR showed right basilar opacity consistent with pneumonia versus atelectasis - No history COPD or asthma - See antibiotic regimen - Patient currently intubated, with improving blood gases overnight - PRN DuoNeb - Infleunza PCR negative - Continuous to monitor oxygen saturations Abdominal tenderness: (resolved) - right lower quadrant tenderness with deep palpation - CT abdomen: demonstrated likely partial small bowel obstruction Acute on chronic kidney disease: - baseline creatinine 1.5 on prior admissions, 2.8 on this admission - continue hydration - Avoid nephrotoxins Hypernatremia/Hypokalemia: - patient euvolemic and bolused with 1 L NS in ED, will give additional 1 L NS and reassess - trended down, and has remained w/in normal limits since returned to hydration Code status: Full code Diet: Regular DVT prophy: Xarelto (2) Sepsis: (3) Hypernatremia: (4) Hypoxia: (5) Anemia: (6) Elevated INR: (7) Hypokalemia: (8) [id number] kidney injury: (9) Hypertension: (10) HLD (hyperlipidemia): (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 still very limited HPI and ROS but notes that she's feeling better Vitals noted, in general she is laying in bed in no distress. HEENT normocephalic atraumatic mucous membranes are moist. breathing unlabored no accessory muscles good effort, no r/r/w good effort. no rashes no pallor or icterus. ate a bite of applesauce for me without difficulty. A/P: 1. acute hypoxic respiratory failure - 2nd to RLL aspiration pneumonia; seems to be improving. on RA. appearing more stable for return to SNF. 2. hypernatremic dehydration - improved w/ fluids. Continue to follow fluid status but Na has normalized. PO intake suspect - need to encourage and follow closely. 3. partial SBO -surgical input appreciated. seems to have improved. follow clinically. 4. 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 Improved. periodic BMP 5. sepsis - 2nd to #1 - improving 6. a. fib with RVR -rate is controlled, baseline anticoagulation with Xarelto. 7. RLL pneumonia - likely due to aspiration in setting of dysphagia from dementia. outpt f/u and speech at SNF as possible. 8. dementia - severe at baseline by history. Subjective Patient is much more responsive this morning, able to indicated verbally that she is not in pain. Is able to be conversive minimally and responds appropriately with limited continued conversation, seems to be closer to baseline given patient's dementia. Physical Exam Constitutional: + ill appearing and + frail appearing Eyes: PERRL, conjunctivae normal, anicteric sclerae Respiratory: + respiratory distress, + labored breathing and symmetric chest movement; no retractions Auscultation: + crackles and + wheezes; no rales Cardiovascular: Rate/Rhythm: regular rate and + tachycardic; + abnormal rhythm Heart Sounds: no gallop, no murmur and no cardiac rub Extremities: no edema Gastrointestinal (Abdomen): normal bowel sounds, soft, nontender, no hepatosplenomegaly Inspection/Auscultation: normal bowel sounds Percussion/Palpation: no hepatosplenomegaly and no abdominal mass Skin: no rashes, warm and dry Psychiatric: Orientation: alert Apperance: + disheveled Eye Contact: g ood eye contact Results & Data Vital Signs (Past 12 Hours) Vital Signs Temp Pulse Pulse Resp BP Pulse Ox 10/06/19 15:00 36.4 C L 69 18 159/80 H 96 10/06/19 12:00 37.6 C H 98 H 18 157/84 H 98 10/06/19 10:53 79 10/06/19 07:51 36.8 C 84 18 145/80 H 95 Laboratory Results 10/06/19 10/06/19 10/06/19 Range/Units 08:36 07:50 07:49 WBC 17.06 H Cancelled RBC 3.56 L Cancelled Hgb 9.7 L Cancelled Hct 30.2 L Cancelled MCV 84.8 Cancelled MCH 27.2 Cancelled MCHC 32.1 Cancelled RDW Std Deviation 47.2 H Cancelled RDW Coeff of Boris 15.4 H Cancelled Plt Count 274 Cancelled MPV 8.8 Cancelled Immature Gran % (Auto) 1.2 Cancelled Neut % (Auto) 88.9 Cancelled Lymph % (Auto) 4.9 Cancelled [place] % (Auto) 4.7 Cancelled Eos % (Auto) 0.2 Cancelled Baso % (Auto) 0.1 Cancelled Immature Gran # (Auto) 0.20 H Cancelled Neut # (Auto) 15.19 H Cancelled Lymph # (Auto) 0.83 L Cancelled [place] # (Auto) 0.80 H Cancelled Eos # (Auto) 0.03 Cancelled Baso # (Auto) 0.01 Cancelled Absolute Nucleated RBC Cancelled Nucleated RBC % (auto) Cancelled Neutrophils % (Manual) Cancelled Band Neutrophils % Cancelled Lymphocytes % (Manual) Cancelled Prolymphocyte % Cancelled Reactive Lymphs % (Man) Cancelled Monocytes % (Manual) Cancelled Eosinophils % (Manual) Cancelled Basophils % (Manual) Cancelled Metamyelocytes % (Man) Cancelled Myelocytes % (Man) Cancelled Promyelocytes % (Man) Cancelled Blast Cells % (Manual) Cancelled Plasma Cell % (Manual) Cancelled Other Cells % Cancelled Nucleated RBC % Cancelled Neutrophils # (Manual) Cancelled Band Neutrophils # Cancelled Total Absolute Neuts Cancelled Lymphocytes # (Manual) Cancelled Prolymphocyte # Cancelled Reactive Lymphs # Cancelled Total Abs Lymphocytes Cancelled Monocytes # (Manual) Cancelled Eosinophils # (Manual) Cancelled Basophils # (Manual) Cancelled Metamyelocytes # (Man) Cancelled Myelocytes # (Manual) Cancelled Promyelocytes # (Man) Cancelled Blast Cells # (Man) Cancelled Plasma Cell # (Manual) Cancelled Other Cells # Cancelled Nucleated RBCs # (Man) Cancelled Hypersegmented Neuts Cancelled Hyposegmented Neuts Cancelled Hypogranular Neuts Cancelled Large Granular Lymphs Cancelled # Lrg Granular Lymphs Cancelled Hairy Cells Cancelled Smudge Cells Cancelled Toxic Granulation Cancelled Toxic Vacuolation Cancelled Dohle Bodies Cancelled Guerrero Rods Cancelled Platelet Estimate Cancelled Hypogranular Platelets Cancelled Clumped Platelets Cancelled Giant Platelets Cancelled Platelet Satelliting Cancelled RBC Morphology Cancelled Polychromasia Cancelled Hypochromasia Cancelled Poikilocytosis Cancelled Basophilic Stippling Cancelled Anisocytosis Cancelled Microcytosis Cancelled Macrocytosis Cancelled Spherocytes Cancelled Pappenheimer Bodies Cancelled Sickle Cells Cancelled Target Cells Cancelled Tear Drop Cells Cancelled Ovalocytes Cancelled Stomatocytes Cancelled [place] Bodies Cancelled Echinocytes Cancelled Acanthocytes (Spur) Cancelled Rouleaux Cancelled RBC Agglutinates Cancelled Schistocytes Cancelled RBC Morph Comment Cancelled [place]zary Cell Cancelled Sodium 140 (136-145) mmol/L Potassium 3.3 L (3.5-5.1) mmol/L Chloride 111 H (98-107) mmol/L Carbon Dioxide 20 L (21-32) mmol/L Anion Gap 9.0 (3-11) BUN 31 H (7-18) mg/dl Creatinine 1.49 H (0.6-1.2) mg/dl Est Cr Clr Drug Dosing 18.4 ml/min Est GFR ( Amer) 35.7 Est GFR (Non-Af Amer) 30.8 BUN/Creatinine Ratio 20.7 H (10-20) Glucose 81 (70-99) mg/dl Calcium 8.4 L (8.5-10.1) mg/dl Medications Administered Current Inpatient Medications Albuterol (Duoneb) 3 ml NEB Q4R PRN PRN Reason: Shortness Of Breath Or Wheezing Stop: 11/01/19 10:59 Apixaban (Eliquis) 2.5 mg PO BID [facility] Stop: 11/04/19 11:14 Last Admin: 10/06/19 08:28 Dose: 2.5 mg Documented by: Aspirin (Aspirin Chew) 81 mg PO DAILY [facility] Stop: 11/01/19 08:59 Last Admin: 10/06/19 08:29 Dose: 81 mg Documented by: Dextrose (Dextrose 50%) 25 - 50 ml IV UD PRN; Protocol PRN Reason: Hypoglycemia Protocol Stop: 11/01/19 08:44 Last Admin: 10/04/19 23:54 Dose: 50 ml Documented by: Glucagon (Glucagen) 1 mg IM UD PRN; Protocol PRN Reason: Hypoglycemia Protocol Stop: 11/01/19 08:44 Glucose (Glucose 40%) 15 - 30 gm PO UD PRN; Protocol PRN Reason: Hypoglycemia Protocol Stop: 11/01/19 08:44 Glucose (Dex4 Glucose) 4 - 8 tabs PO UD PRN; Protocol PRN Reason: Hypoglycemia Protocol Stop: 11/01/19 08:44 Heparin Sodium (Beef Lung) (Heparin Sod 10 Unit/Ml Flush) 5 ml FLUSH PRN PRN PRN Reason: Flush Stop: 11/05/19 10:05 Piperacillin Sod/Tazobactam (Sod 4.5 gm/ Dextrose) 120 mls @ 30 mls/hr IV Q12H [facility]; Protocol Stop: 10/09/19 11:59 Last Admin: 10/06/19 13:14 Dose: 30 mls/hr Documented by: Doxycycline Hyclate 100 mg/ (Dextrose) 110 mls @ 50 mls/hr IV Q12H [facility] Stop: 10/07/19 01:11 Last Infusion: 10/06/19 12:24 Dose: Infused Documented by: Sodium Chloride (Nss 1000ml) 1,000 mls @ 80 mls/hr IV .[id number] [facility] Stop: 10/06/19 22:59 Last Admin: 10/06/19 10:41 Dose: 80 mls/hr Documented by: Latanoprost (Xalatan Oph) 1 drops OPB HS [facility] Stop: 11/01/19 20:59 Last Admin: 10/05/19 20:14 Dose: 1 drops Documented by: Metoprolol Tartrate (Lopressor) 12.5 mg PO BID [facility] Stop: 11/01/19 20:59 Last Admin: 10/06/19 08:30 Dose: 12.5 mg Documented by: Miscellaneous (Carbohydrates For Hypoglycemia) 15 - 30 gm PO UD PRN PRN Reason: Hypoglycemia Treatment Stop: 11/01/19 08:44 Miscellaneous Information (Consult) 1 ea N/A UD PRN PRN Reason: Consult Stop: 11/01/19 06:02 Venlafaxine HCl (Effexor Extended Release) 150 mg PO DAILY [facility] Stop: 11/01/19 08:59 Last Admin: 10/06/19 08:59 Dose: 150 mg Documented by: Resident Activity Tracking Resident Involvement: Resident Care Provided Care Provided: Adult Hospital Medicine
--- NOTE | 2019-10-06 19:35 | Billing Data ---
Date of Service October 06, 2019 Coding Level of Care Code 31819 Subseq Hosp Care Lvl 3
[2019-10-06] MEDS: LATANOPROST 0.005% OP SOLN 2.5 ML BTL OPB SCH (21:32)
[2019-10-07] MEDS: PIPERACILLIN/TAZOBACTAM 4.5 GM in DEXTROSE 5% 100 ML IV SCH ×2 (01:01→11:09)
[2019-10-07] MEDS: APIXABAN 2.5 MG TAB PO SCH ×2 (08:18→20:32)
[2019-10-07] MEDS: METOPROLOL TARTRATE 25 MG TAB PO SCH ×2 (08:19→20:32)
[2019-10-07] MEDS: ASPIRIN 81 MG CHEW PO SCH (08:20)
[2019-10-07] MEDS: VENLAFAXINE HCL XR 150 MG CAPXR PO SCH (08:34)
--- NOTE | 2019-10-07 12:59 | Hospitalist Progress Note ---
Date of Service October 07, 2019 Assessment & Plan (1) Atrial fibrillation with RVR: 89-year-old female was admitted on 02 October 2019 for tachycardia, hypernatremia, dehydration, acute on chronic kidney injury, and possible ongoing aspiration pneumonia. Patient is relatively nonverbal at baseline and is noncontributory to history. A. fib RVR: - patient with history of PAF - Given IV metoprolol with improvement in rate and hemodynamics; continue oral metoprolol to IV - Continue Xarelto - Monitor on telemetry: consider IV Cardizem drip if returns to uncontrollable rhythm Sepsis: - patient febrile with leukocytosis and elevated lactate - Pulmonary or urine source likely, cannot rule out abdominal source at this time - Patient diagnosed 3 days ago with aspiration pneumonia and did 3 days of azithromycin - finished 10 day course of Doxycycline - Blood Cultures (10/05) positive for Gram + cocci in clusters 1/2 - cultures re-drawn, will await additional cultures before considering new abx - Procal 0.22 today; repeat in AM - C. 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, vascular disease, prior CVA in the setting of UTI/sepsis - Patient functionally nonverbal at baseline - Ammonia within normal limits, CO2 30 - CT head negative for acute process - BUN mildly elevated - Frequent neuro exams, monitor Acute hypoxic respiratory failure: - likely secondary to aspiration pneumonia - CXR showed right basilar opacity consistent with pneumonia versus atelectasis - No history COPD or asthma - See antibiotic regimen - Patient currently intubated, with improving blood gases overnight - PRN DuoNeb - Infleunza PCR negative - Continuous to monitor oxygen saturations Abdominal tenderness: (resolved) - right lower quadrant tenderness with deep palpation - CT abdomen: demonstrated likely partial small bowel obstruction - C. diff negative x2 Acute on chronic kidney disease: - baseline creatinine 1.5 on prior admissions, 2.8 on this admission - continue hydration - Avoid nephrotoxins Hypernatremia/Hypokalemia: - patient euvolemic and bolused with 1 L NS in ED, will give additional 1 L NS and reassess - trended down, and has remained w/in normal limits since returned to hydration Code status: Full code Diet: Regular DVT prophy: Xarelto (2) Sepsis: (3) Hypernatremia: (4) Hypoxia: (5) Anemia: (6) Elevated INR: (7) Hypokalemia: (8) [id number]-[id number] kidney injury: (9) Hypertension: (10) HLD (hyperlipidemia): (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 No meaningful HPI or review of systems, but she is awake and talking almost constantly. Family present and I updated them to the best of my ability. Vitals noted, in general she is laying in bed in no distress. HEENT normocephalic atraumatic mucous membranes are moist. breathing unlabored no accessory muscles good effort. no rashes no pallor or icterus. A/P: 1. acute hypoxic respiratory failure - 2nd to RLL aspiration pneumonia; seems to be improving. on RA. appearing more stable for return to SNF. 2. hypernatremic dehydration - improved w/ fluids, now off IV fluids again. Continue to follow fluid status but Na has normalized. PO intake suspect - need to encourage and follow closely. 3. partial SBO -surgical input appreciated. seems to have improved. follow clinically. 4. 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 Improved. periodic BMP 5. sepsis - 2nd to #1 - improving 6. a. fib with RVR -rate is controlled, baseline anticoagulation with Xarelto. 7. RLL pneumonia - likely due to aspiration in setting of dysphagia from dementia. outpt f/u and speech at SNF as possible. 8. dementia - severe at baseline by history. 9. Positive blood cultureappears to be false positive given that it is always 1 of 2 and the only one to be finalized right now has appeared consistent with skin farrah, but it is somewhat troubling that she constantly has at least 1 of 2+. Repeat blood cultures again today, check pro-Humberto today to be able to trend into tomorrow. If these cultures are negative, or pro calcitonin goes nowhere, then it would appear safe for discharge. Otherwise may need to consider infectious disease input. Subjective Patient is much more responsive this morning, able to indicated verbally that she is not in pain. Is able to be conversive minimally and responds appropriately with limited continued conversation, seems to be closer to baseline given patient's dementia. Had several very loose bowel movements throughout the day. Review of Systems Review of Systems: Unobtainable due to cognitive status Physical Exam Constitutional: + ill appearing and + frail appearing Eyes: PERRL, conjunctivae normal, anicteric sclerae Respiratory: + respiratory distress, + labored breathing and symmetric chest movement; no retractions Auscultation: + crackles and + wheezes; no rales Cardiovascular: Rate/Rhythm: regular rate and + tachycardic; + abnormal rhythm Heart Sounds: no gallop, no murmur and no cardiac rub Extremities: no edema Gastrointestinal (Abdomen): normal bowel sounds, soft, nontender, no hepatosplenomegaly Inspection/Auscultation: normal bowel sounds Percussion/Palpation: no hepatosplenomegaly and no abdominal mass Skin: no rashes, warm and dry Psychiatric: Orientation: alert Apperance: + disheveled Eye Contact: good eye contact Results & Data Vital Signs (Past 12 Hours) Vital Signs Temp Pulse Pulse Pulse Resp BP Pulse Ox 10/07/19 11:20 36.3 C L 91 H 16 150/67 H 97 10/07/19 09:44 70 10/07/19 08:00 36.3 C L 85 18 156/90 H 95 10/07/19 03:02 36.5 C 70 20 153/73 H 95 Laboratory Results 10/07/19 10/07/19 10/05/19 Range/Units 13:34 10:30 10:37 Procalcitonin 0.22 (0-0.5) ng/ml Stl C. diff Tox B Gene Negative Cdiff Gene (Neg) Bld Cult Staph aureus PCR Negative (Negative) Blood Culture MRSA PCR Negative (Negative) Medications Administered Current Inpatient Medications Albuterol (Duoneb) 3 ml NEB Q4R PRN PRN Reason: Shortness Of Breath Or Wheezing Stop: 11/01/19 10:59 Apixaban (Eliquis) 2.5 mg PO BID [facility] Stop: 11/04/19 11:14 Last Admin: 10/07/19 08:18 Dose: 2.5 mg Documented by: Aspirin (Aspirin Chew) 81 mg PO DAILY LISA Stop: 11/01/19 08:59 Last Admin: 10/07/19 08:20 Dose: 81 mg Documented by: Dextrose (Dextrose 50%) 25 - 50 ml IV UD PRN; Protocol PRN Reason: Hypoglycemia Protocol Stop: 11/01/19 08:44 Last Admin: 10/04/19 23:54 Dose: 50 ml Documented by: Glucagon (Glucagen) 1 mg IM UD PRN; Protocol PRN Reason: Hypoglycemia Protocol Stop: 11/01/19 08:44 Glucose (Glucose 40%) 15 - 30 gm PO UD PRN; Protocol PRN Reason: Hypoglycemia Protocol Stop: 11/01/19 08:44 Glucose (Dex4 Glucose) 4 - 8 tabs PO UD PRN; Protocol PRN Reason: Hypoglycemia Protocol Stop: 11/01/19 08:44 Heparin Sodium (Beef Lung) (Heparin Sod 10 Unit/Ml Flush) 5 ml FLUSH PRN PRN PRN Reason: Flush Stop: 11/05/19 10:05 Last Admin: 10/07/19 10:31 Dose: 5 ml Documented by: Piperacillin Sod/Tazobactam (Sod 4.5 gm/ Dextrose) 120 mls @ 30 mls/hr IV Q12H LISA; Protocol Stop: 10/09/19 11:59 Last Admin: 10/07/19 11:09 Dose: 30 mls/hr Documented by: Latanoprost (Xalatan Oph) 1 drops OPB HS [facility] Stop: 11/01/19 20:59 Last Admin: 10/06/19 21:32 Dose: 1 drops Documented by: Metoprolol Tartrate (Lopressor) 12.5 mg PO BID [facility] Stop: 11/01/19 20:59 Last Admin: 10/07/19 08:19 Dose: 12.5 mg Documented by: Miscellaneous (Carbohydrates For Hypoglycemia) 15 - 30 gm PO UD PRN PRN Reason: Hypoglycemia Treatment Stop: 11/01/19 08:44 Miscellaneous Information (Consult) 1 ea N/A UD PRN PRN Reason: Consult Stop: 11/01/19 06:02 Venlafaxine HCl (Effexor Extended Release) 150 mg PO DAILY [facility] Stop: 11/01/19 08:59 Last Admin: 10/07/19 08:34 Dose: Not Given Documented by: Resident Activity Tracking Resident Involvement: Resident Care Provided Care Provided: Adult Hospital Medicine
--- NOTE | 2019-10-07 19:10 | Billing Data ---
Date of Service October 07, 2019 Coding Level of Care Code 48119 Subseq Hosp Care Lvl 3
[2019-10-07] MEDS: LATANOPROST 0.005% OP SOLN 2.5 ML BTL OPB SCH (20:33)
[2019-10-08 06:05] LABS: Eosinophils # (auto) 0.08 K/uL (0-0.5); Eosinophils % (auto) 0.7 %; Hematocrit (blood only) 28.2 % (37-47); Hemoglobin 9.2 g/dL (12.0-16.0); Immature Granulocytes # (auto) 0.18 K/uL (0.00-0.02); Immature Granulocytes % (auto) 1.6 %; Lymphocytes # (auto) 0.87 K/uL (1.2-3.4); Lymphocytes % (auto) 7.9 %; Mean Corpuscular Hemoglobin 27.5 pg (25-34); Mean Corpuscular Hgb Conc 32.6 g/dL (32-36); Mean Corpuscular Volume 84.4 fL (80-100); Mean Platelet Volume 9.1 fL (7.4-10.4); Monocytes # (auto) 0.75 K/uL (0.11-0.59); Monocytes % (auto) 6.8 %; Neutrophils # (auto) 9.12 K/uL (1.4-6.5); Platelet Count 326 K/uL (130-400); RDW Coefficient of Variation 15.4 % (11.5-14.5); RDW Standard Deviation 46.6 fL (36.4-46.3); Red Blood Count 3.34 M/uL (4.2-5.4)
[2019-10-08 06:42] LABS: BUN Creatinine Ratio 18.8 (10-20); Calcium 8.2 mg/dl (8.5-10.1); Creatinine Clr Calc Pharmacy 23.2 ml/min; Est GFR (African American) 47.4; Est GFR (Non-African American) 40.9
--- NOTE | 2019-10-08 07:33 | Hospitalist Progress Note ---
Date of Service October 08, 2019 Assessment & Plan (1) Atrial fibrillation with RVR: 89-year-old female was admitted on 02 October 2019 for tachycardia, hypernatremia, dehydration, acute on chronic kidney injury, and possible ongoing aspiration pneumonia. Patient is relatively nonverbal at baseline and is noncontributory to history. Sepsis: - Patient currently afebrile and white count downtrending from 17 -> 11 overnight. - Blood Cultures (10/05) positive for Gram + cocci in clusters 1/2; BCx 10/07 negative to date but will wait for 48 hours of negative cultures. If BCx positive will need TTE and Abx; however at this time pt is improving without Abx intervention. - Procal 0.22 -> 0.19 today. - C. diff negative x2. A. fib RVR: - patient with history of PAF. - Given IV metoprolol with improvement in rate and hemodynamics; continue metoprolol PO 12.5mg BID. - Continue Xarelto. - Monitor on telemetry: consider IV Cardizem drip if returns to uncontrollable rhythm. Altered mental status: - Likely secondary to mixed Alzheimer's, vascular disease, prior CVA in the setting of UTI/sepsis. - Patient functionally nonverbal at baseline. - Ammonia within normal limits, CO2 30. - CT head negative for acute process. - Pt appears to be at baseline at this time. Acute hypoxic respiratory failure: - Likely secondary to aspiration pneumonia. No SOB at this time and pt saturating well on room air. - CXR showed right basilar opacity consistent with pneumonia versus atelectasis. - PRN DuoNeb. - Influenza PCR negative. Abdominal tenderness: (resolved) - CT abdomen: demonstrated likely partial small bowel obstruction. - C. diff negative x2. - Pt without guarding or signs of abdominal pain on physical exam. Acute on chronic kidney disease: - Cr 1.5 -> 1.18 today. - Avoid nephrotoxins. Hypernatremia/Hypokalemia: - Patient euvolemic at this time. - K 3.0 today, repleted 40PO 40IV. Mg 1.7 today and repleted MagOx 400. Code status: Full code Diet: Regular DVT prophylaxis: Xarelto Dispo: Med/Surg (2) Sepsis: (3) Hypernatremia: (4) Hypoxia: (5) Anemia: (6) Elevated INR: (7) Hypokalemia: (8) Qxkud-kw-gkmzwsv kidney injury: (9) Hypertension: (10) HLD (hyperlipidemia): (11) Alzheimer's dementia: Supervising Physician Co-Signing Physician Notes Patient seen and examined with PGY-1 Dr. Perez. Agree with history, exam findings, assessment and plan of care as outlined. Patient nods to questions, but unable to gather meaningful information from her. Family not present at the time of our visit. Vital signs and nursing notes reviewed. New systolic murmur heard best at the apex. 1. acute hypoxic resp failure 2/2 RLL asp pna--resolved. on RA now. off abx. 2. hypernatremia secondary to dehydration. Resolved. Monitor lytes. Push oral fluids. 3. partial SBO, seems to have resolved. 4. HOWIE on CKD. Improved after fluids. Monitor. 5. Sepsis secondary to asp pna. Leukocytosis downtrending. Remains afebrile. 6. Hypokalemia. Repleted, Mag low and repleted as well. 7. 1/2 blood cultures with gram pos cocci in clusters--poss contaminant. Repeat cultures pending. 8. new heart murmur. Prior Echos do not indicate significant valvular dysfunction. If new cultures grow bacteria, consider CHARLES to assess for valve vegetation. Dispo: pending blood cultures. Subjective Pt without acute events overnight. Patient is somewhat responsive this morning, denies pain but generally does not answer questions in any meaningful way if more than yes or no answers are required. Denies SOB, CP, abdominal pain. Review of Systems Review of Systems: Unable to obtain ROS due to patient's altered mental status. Physical Exam Constitutional: WD/WN, vitals as above Respiratory: normal respiratory effort, lungs clear to auscultation Cardiovascular: HR RRR, DARIANA 4/6 best heard at apex with radiation into axilla. No rubs or gallops. No LE edema. L hand with 2+ pitting edema and bilateral arms with multiple ecchymoses at former blood draw and line sites. Gastrointestinal (Abdomen): normal bowel sounds, soft, nontender, no hepatosplenomegaly Skin: no rashes, warm and dry Ecchymoses as described above Psychiatric: Orientation: alert Results & Data Vital Signs (Past 12 Hours) Vital Signs Temp Pulse Pulse Pulse Resp BP Pulse Ox 10/08/19 07:25 36.5 C 59 L 18 95 10/08/19 07:21 71 10/08/19 03:52 36.4 C L 96 H 19 125/67 92 10/08/19 00:37 87 10/07/19 22:57 36.4 C L 19 153/75 H 98 Resident Activity Tracking Resident Involvement: Resident Care Provided Care Provided: Adult Hospital Medicine
[2019-10-08] MEDS: METOPROLOL TARTRATE 25 MG TAB PO SCH ×2 (08:33→20:38)
[2019-10-08] MEDS: APIXABAN 2.5 MG TAB PO SCH ×2 (08:33→20:38)
[2019-10-08] MEDS: VENLAFAXINE HCL XR 150 MG CAPXR PO SCH ×2 (08:34→08:40)
[2019-10-08] MEDS: ASPIRIN 81 MG CHEW PO SCH (09:03)
[2019-10-08] MEDS ORDERED: POTASSIUM CHLORIDE 20 MEQ/15 ML UDC PO ONE (10:15)
[2019-10-08] MEDS: POTASSIUM CHLORIDE / WTR 10 MEQ/100 ML PLCT IV SCH ×4 (10:22→13:19)
[2019-10-08] MEDS: VENLAFAXINE HCL 37.5 MG TAB PO SCH ×2 (11:23→20:37)
[2019-10-08] MEDS: MAGNESIUM OXIDE 400 MG TAB PO SCH (15:43)
[2019-10-08] MEDS: LATANOPROST 0.005% OP SOLN 2.5 ML BTL OPB SCH (20:36)
[2019-10-09 06:16] LABS: Basophils # (auto) 0.02 K/uL (0-0.2); Basophils % (auto) 0.2 %; Eosinophils # (auto) 0.06 K/uL (0-0.5); Eosinophils % (auto) 0.5 %; Hematocrit (blood only) 28.2 % (37-47); Hemoglobin 9.2 g/dL (12.0-16.0); Immature Granulocytes # (auto) 0.22 K/uL (0.00-0.02); Immature Granulocytes % (auto) 1.9 %; Lymphocytes # (auto) 0.93 K/uL (1.2-3.4); Lymphocytes % (auto) 7.9 %; Mean Corpuscular Hemoglobin 27.7 pg (25-34); Mean Corpuscular Hgb Conc 32.6 g/dL (32-36); Mean Corpuscular Volume 84.9 fL (80-100); Mean Platelet Volume 8.9 fL (7.4-10.4); Monocytes % (auto) 9.3 %; Neutrophils # (auto) 9.48 K/uL (1.4-6.5); Neutrophils % (auto) 80.2 %; Platelet Count 394 K/uL (130-400); RDW Coefficient of Variation 15.2 % (11.5-14.5); Red Blood Count 3.32 M/uL (4.2-5.4); White Blood Count 11.81 K/uL (4.8-10.8)
[2019-10-09 06:55] LABS: BUN Creatinine Ratio 23.7 (10-20); Calcium 8.5 mg/dl (8.5-10.1); Est GFR (African American) 49.4; Est GFR (Non-African American) 42.6; Potassium 3.8 mmol/L (3.5-5.1)
[2019-10-09] MEDS: APIXABAN 2.5 MG TAB PO SCH (08:31)
[2019-10-09] MEDS: METOPROLOL TARTRATE 25 MG TAB PO SCH (08:31)
[2019-10-09] MEDS: VENLAFAXINE HCL 37.5 MG TAB PO SCH (08:31)
[2019-10-09] MEDS: MAGNESIUM OXIDE 400 MG TAB PO SCH (08:32)
[2019-10-09] MEDS: ASPIRIN 81 MG CHEW PO SCH (08:33)
--- NOTE | 2019-10-09 10:06 | Discharge Summary ---
Date of Service October 09, 2019 Admission HPI Per Admitting Provider 89-year-old female was brought in by EMS from [facility]. Patient herself has a history of mixed Alzheimer's and vascular dementia. Although she will mumble at times, she is functionally nonverbal and thus noncontributory to history. The below history is based on the ED's notes, discussion with ED staff, and discussion with patient's family at bedside. Reportedly, patient was diagnosed with aspiration pneumonia following a chest x- ray about 4 days ago. She was started on azithromycin 2 to 3 days ago. However, she continues to have fevers, as high as 103 this evening. EMS was called and she apparently was given Tylenol and a DuoNeb. She was also reported to have an oxygen saturation of 85% on room air which improved to 95% after being placed on supplemental oxygen. - Past medical history includes hypertension, hyperlipidemia, mixed Alzheimer's and vascular dementia, paroxysmal A. fib, osteoporosis, rhabdomyolysis, CVA, breast adenocarcinoma - Past surgical history includes right nephrectomy, right breast lumpectomy, appendectomy, left hip hemiarthroplasty - Social history includes no reported previous smoking or alcohol use. Lives at [facility]. Admission Exam Per Admitting Provider GENERAL: Awake, eyes open, difficult to assess whether she is responding to commands. Family at bedside says she appears more alert than on arrival to the ED. HENT: Normocephalic, atraumatic. Oropharynx is dry. EYES: Normal conjunctiva. Sclera non-icteric. NECK: Inspection normal. Non-tender. Supple and full ROM. No nuchal rigidity. CARDIAC: +S1S2 irregular irregular tachycardia, no murmurs. RESPIRATORY: Clear to auscultation. No wheezes or rales. Normal respiratory effort. GI: +BS, soft, non-distended. No rebound or guarding. Difficult to tell if any tenderness, though patient does inconsistently moan on palpation of the suprapubic area. EXTREMITIES: No pedal edema. She is not spontaneously moving her extremities, though she does squeeze both hands if you put your fingers on her palm. NEURO: Difficult to assess. PERRL bilaterally. Eyes are open and patient is making spontaneous moaning or crying out sounds. No spontaneous extremity movement. Principal Diagnosis Acute on chronic renal failure in the setting of sepsis. Discharge Exam Constitutional: WD/WN, vitals as above Respiratory: normal respiratory effort, lungs clear to auscultation Cardiovascular: HR RRR, DARIANA 4/6 best heard at apex with radiation into axilla. No rubs or gallops. No LE edema. L hand with 2+ pitting edema and bilateral arms with multiple ecchymoses at former blood draw and line sites. Gastrointestinal (Abdomen): normal bowel sounds, soft, nontender, no hepatosplenomegaly Skin: no rashes, warm and dry Ecchymoses as described above Psychiatric: alert but not oriented. Discharge Data Allergies Allergy/AdvReac Type Severity Reaction Status Date / Time morphine AdvReac Unknown hallucinati Verified 10/02/19 03:50 ons Consultations 10/02/19 04:07 ED Decision to Admit Stat 10/02/19 06:03 Consult Case Management - Discharge Planning Routine Consult [employer]ator Routine 10/02/19 06:26 Consult Case Management - Discharge Planning Routine 10/03/19 18:08 Consult General Surgery Routine 10/05/19 08:16 Consult Cardiology Routine Ordered Studies 10/02/19 06:51 US point of care ultrasound Urgent 10/03/19 07:54 CT abd pelvis oral con only Urgent CT chest wo con Urgent Hospital Course (1) Sepsis: 89-year-old female was admitted on 02 October 2019 for tachycardia, hypernatremia, dehydration, acute on chronic kidney injury found to be septic. Sepsis: - Patient continues to be afebrile and white count downtrending from 17 -> 11 this admission and not currently on antibiotics; completed course of doxycycline and was on azithromycin prior to admission. - Blood Cultures (10/05) positive for CoNS NOT MRSA; BCx 10/07 negative after 48 hours for growth. First positive likely contaminant. - Procal stable. - C. diff negative x2. - Pt's disposition and labwork improved without further antibiotic intervention, and with PO nutrition and hydration. - Pt will require close follow up with primary care provider following discharge. HOWIE: - Pt's Cr up to 2.3 this admission, baseline around 1.5. Xarelto was held and Eliquis started at renal dosing. Fluid hydration administered. Pt's Cr downtrended to 1.14 today. - Resume home Xarelto. Continue to encourage PO hydration. A. fib RVR: - Patient with history of paroxysmal AFib. Stable at this time. - Continue metoprolol PO 12.5mg BID. - Continue Xarelto. Altered mental status: - Likely secondary to mixed Alzheimer's, vascular disease, prior CVA in the setting of sepsis. - Patient functionally nonverbal at baseline. - CT head negative for acute process. - Pt appears to be at baseline at this time. Acute hypoxic respiratory failure: - Likely secondary to aspiration pneumonia. No SOB at this time and pt saturating well on room air. - CXR showed right basilar opacity consistent with pneumonia versus atelectasis. - PRN DuoNeb. - Influenza PCR negative. ? Partial SBO: - CT abdomen: demonstrated possible partial small bowel obstruction. Pt has been stooling this admission. - C. diff negative x2. - Pt without guarding or signs of abdominal pain on physical exam. Hypernatremia/Hypokalemia: - Patient euvolemic at this time. - Pt may need potassium and magnesium supplementation in outpatient setting. (2) AMS (altered mental status): (3) SBO (small bowel obstruction): (4) Alzheimer's dementia: (5) Hknzb-av-ntdtmep kidney injury: (6) Hypokalemia: (7) Paroxysmal A-fib: Total Time Total Time Spent Total Time Spent (In Minutes): see attending attestation Discharge Plan Discharge Items Patient Disposition: Transfer Nursing Home Fac Reason For Visit: AFIB W/ RVR, HYPERNATREMIA, ACUTE RENAL INJURY Discharge Diagnosis: Sepsis, HOWIE Activity: Resume your previous activity Non-emergency contact: Primary Care Provider and Hospitalist Call non-emergency contact if: your symptoms worsen and your temperature is above 101 Follow-up/Referrals: Bety Ruth [Primary Care Provider] - Diet: Regular Addtl Attending Provider Instructions: 89-year-old female was admitted on 02 October 2019 for tachycardia, hypernatremia, dehydration, acute on chronic kidney injury, and possible ongoing aspiration pneumonia. Sepsis: - Patient continues to be afebrile and white count downtrending from 17 -> 11 this admission and not currently on antibiotics; completed course of doxycycline and was on azithromycin prior to admission. - Blood Cultures (10/05) positive for CoNS NOT MRSA; BCx 10/07 negative after 48 hours for growth. First positive likely contaminant. - Procal stable. - C. diff negative x2. - Pt's disposition and labwork improved without further antibiotic intervention, and with PO nutrition and hydration. - Pt will require close follow up with primary care provider following discharge. HOWIE: - Pt's Cr up to 2.3 this admission, baseline around 1.5. Xarelto was held and Eliquis started at renal dosing. Fluid hydration administered. Pt's Cr downtrended to 1.14 today. - Resume home Xarelto. Continue to encourage PO hydration. A. fib RVR: - Patient with history of paroxysmal AFib. Stable at this time. - Continue metoprolol PO 12.5mg BID. - Continue Xarelto. Altered mental status: - Likely secondary to mixed Alzheimer's, vascular disease, prior CVA in the setting of sepsis. - Patient functionally nonverbal at baseline. - CT head negative for acute process. - Pt appears to be at baseline at this time. Acute hypoxic respiratory failure: - Likely secondary to aspiration pneumonia. No SOB at this time and pt saturating well on room air. - CXR showed right basilar opacity consistent with pneumonia versus atelectasis. - PRN DuoNeb. - Influenza PCR negative. ? Partial SBO: - CT abdomen: demonstrated possible partial small bowel obstruction. Pt has been stooling this admission. - C. diff negative x2. - Pt without guarding or signs of abdominal pain on physical exam. Hypernatremia/Hypokalemia: - Patient euvolemic at this time. - Pt may need potassium and magnesium supplementation in outpatient setting. Pending Studies at Discharge: No Stand-Alone Forms: My [facility] Skilled Items Patient informed of condition?: Yes DNR: No Discharge Level of Care: Skilled Communicable Disease: No Discharge Prognosis: Improving Lines: None Urinary Catheter: Yes Medications and DC Order Prescriptions: Continued ipratropium-albuterol 0.5 mg-3 mg(2.5 mg base)/3 mL solution for nebulization 3 ml INHALATION Q4 PRN (Reason: Shortness Of Breath Or Wheezing) RF: 0 venlafaxine 150 mg tablet extended release 24hr 150 mg PO DAILY RF: 0 latanoprost 0.005 % drops 1 drp OPB DAILY RF: 0 hydrocortisone 2.5 % cream with perineal applicator 2.5 % WV Q8 PRN (Reason: Hemorrhoids) RF: 0 Calmoseptine 0.44-20.6 % Ointment 1 applic TOPICAL QS RF: 0 acetaminophen [Tylenol] 325 mg Tablet 650 mg PO Q6H PRN (Reason: Fever Or Pain) RF: 0 atorvastatin [Lipitor] 20 mg tablet 20 mg PO DAILY RF: 0 amlodipine [Norvasc] 10 mg tablet 10 mg PO DAILY RF: 0 aspirin [Aspirin Childrens] 81 mg Tablet,Chewable 81 mg PO DAILY RF: 0 metoprolol tartrate 25 mg tablet 12.5 mg PO BID RF: 0 Xarelto 15 mg tablet 15 mg PO DAILY RF: 0 Combivent Respimat 20-100 mcg/actuation mist 20 - 100 mcg Inhalation Q6H PRN (Reason: cough/wheeze) RF: 0 lorazepam 0.5 mg Tablet 0.25 mg PO Q8 RF: 0 Discontinued azithromycin 250 mg tablet 250 mg PO DAILY RF: 0 Discharge Orders: Discharge Order (Routine); Ordered 10/09/19 Ordered By: Sharmin Perez Admission Data Admit Date/Time: 10/02/19 05:07 Attending Provider: Dav Ren Admit Provider: Carlos Morgan [place] [facility] [place] [facility] Other Providers: [facility] ; Russel Baca ; Fredo Medina ; Анна Wharton ; Sudarshan Bernstein ; Kirt Shore Other Interventions: Discharge Summary Assessment (RN) Last Done: 10/09/19 13:49 DC Date/Time DO NOT enter until pt leaves facility: 10/09/19 15:05 Supervising Physician Co-Signing Physician Notes Patient seen and examined with PGY-1 Dr. Perez. Agree with history, exam findings, assessment and plan of care as outlined. 89 year old female with hx of dementia, CKD, pAF, HTN and prior CVA admitted for sepsis secondary to aspiration pneumonia. Hospital course complicated by acute hypoxic resp failure, partial SBO and HOWIE on CKD. She completed antibiotics for pneumonia and partial SBO has resolved. She has been tolerating her normal diet. Towards the end of her hospital stay, she did have a blood culture that grew skin farrah (1 of 2 bottles). Repeat cultures were drawn that have not grown any bacteria. Other chronic issues were stable and home medications continued upon dischage back to [facility]. Resident Activity Tracking Resident Involvement: Resident Care Provided Care Provided: Adult [facility] Medicine
== END 2019-10-09 15:05 | DRG 871 ==
LOC: ED 03:09 → 1E 05:07 → SUATTDRO 05:07 → 1E 05:28 → 2N 10-05 12:36

== ENCOUNTER 2019-10-24 13:58 | Inpatient (IN) ==
[2019-10-24] MEDS ORDERED: SODIUM CHLORIDE 0.9% 250 ML IV PRN ×2 (14:46→21:34)
[2019-10-24] MEDS ORDERED: SODIUM CHLORIDE 0.9% 500 ML IV SCH (15:00)
[2019-10-24] MEDS ORDERED: PANTOprazole 80 MG in DEXTROSE 5% 100 ML IV ONE (15:00)
--- NOTE | 2019-10-24 15:05 | XRay Report ---
XR chest 1V portable CLINICAL HISTORY: weakness dyspnea COMPARISON STUDY: 10/03/2019 FINDINGS: Myocardial megaly. Slight prominence of the pulmonary vasculature. Diaphragms are smooth. N o focal infiltrate. Degenerative changes of the shoulders bilaterally. IMPRESSION: Mild cardiac megaly. Pulmonary vascular congestion. ACT 112: Negative or not required by law. The above report was generated using voice recognition software. It may contain grammatical, syntax or spelling errors. Electronically signed by: Sudarshan Sun M.D. 10/24/2019 3:03 PM
[2019-10-24 15:42] LABS: Hemoglobin 5.7 g/dL (12.0-16.0); Mean Corpuscular Hemoglobin 27.5 pg (25-34); Mean Corpuscular Hgb Conc 31.7 g/dL (32-36); Platelet Count 263 K/uL (130-400); RDW Standard Deviation 51.8 fL (36.4-46.3); Red Blood Count 2.07 M/uL (4.2-5.4); White Blood Count 3.45 K/uL (4.8-10.8)
[2019-10-24 15:58] LABS: Alanine Aminotransferase 27 U/L (12-78); Albumin Level 2.3 gm/dl (3.4-5.0); Aspartate Aminotransferase 18 U/L (15-37); BUN Creatinine Ratio 23.6 (10-20); Blood Urea Nitrogen 30 mg/dl (7-18); Calcium 8.2 mg/dl (8.5-10.1); Carbon Dioxide 27 mmol/L (21-32); Chloride 102 mmol/L (98-107); Est GFR (African American) 42.9; Glucose 93 mg/dl (70-99); Potassium 4.5 mmol/L (3.5-5.1); Sodium 132 mmol/L (136-145)
[2019-10-24 16:02] LABS: Albumin Globulin Ratio 0.6 (0.9-2); Alkaline Phosphatase 95 U/L (45-117); Bilirubin,Total 0.2 mg/dl (0.2-1); Globulin 3.6 gm/dl (2.5-4.0); Total Protein 5.9 gm/dl (6.4-8.2); Troponin I < 0.015 ng/ml (0-0.045)
[2019-10-24 16:04] LABS: INR 1.5 (0.9-1.1); Partial Thromboplastin Ratio 1.3; Partial Thromboplastin Time 34.2 Seconds (21.0-31.0); Prothrombin Time 14.7 Seconds (9.0-12.0)
[2019-10-24 16:08] LABS: Basophils # (auto) 0.02 K/uL (0-0.2); Basophils % (auto) 0.6 %; Eosinophils # (auto) 0.08 K/uL (0-0.5); Eosinophils % (auto) 2.3 %; Immature Granulocytes # (auto) 0.02 K/uL (0.00-0.02); Immature Granulocytes % (auto) 0.6 %; Lymphocytes # (auto) 1.05 K/uL (1.2-3.4); Lymphocytes % (auto) 30.4 %; Monocytes # (auto) 0.57 K/uL (0.11-0.59); Monocytes % (auto) 16.5 %; Neutrophils # (auto) 1.71 K/uL (1.4-6.5); Neutrophils % (auto) 49.6 %; Polychromasia 1+
[2019-10-24] MEDS: PANTOprazole 40 MG in DEXTROSE 5% 100 ML IV SCH ×2 (16:35→20:30)
--- NOTE | 2019-10-24 17:14 | History & Physical Report ---
Date of Service October 24, 2019 Assessment & Plan (1) GI bleed: - Presented with acute anemia likely related to GI bleed/home Xarelto therapy. FOBT was positive. - Hgb 5.6 -- will transfuse 2 units pRBCs. - Continue Protonix drip. - Consulting GI for recs. - NPO except meds; IV fluids at 80 cc/hr following PRBC transfusion -- monitor for volume overload. - Monitor CBC q6hr -- transfuse for hgb <8 due to EKG changes, concern for demand ischemia. - Holding home ASA and Xarelto. - Consider imaging of A/P once patient is stabilized on 10/25 to evaluate for large bleeding mass, etc. (2) Anemia: - As noted above. (3) Acute electrocardiogram changes: - Repeat EKG this afternoon showed worsening T wave inversion. - Initial troponin was negative; will monitor Trop q6hr. - Possibly related to demand ischemia in setting of severe anemia. (4) Elevated INR: - INR level 1.5 -- has been elevated in the past, possibly related to malnutrition. - Continue to monitor INR levels - consider reversal with Vit K if no improvement in bleeding. (5) Hyponatremia: - Na level 132 -- likely related to hypovolemia. - Expect improvement with IV fluids/PRBCs. - Repeat BMP in the AM. (6) HOWIE (acute kidney injury): - Creatinine increased to 1.28 -- baseline ~1.1. - Prerenal related to dehydration. - IV fluids at 80 cc/hr. (7) CKD (chronic kidney disease), stage III: - Renally dose all meds. (8) Paroxysmal A-fib: - Holding home Metoprolol 12.5 mg BID due to acute GI bleed. - Currently in NSR; admit to tele for close monitoring. - Holding home Xarelto. (9) Hypertension: - Holding home Metoprolol and Amlodipine due to acute GI bleed. - BP has been stable. (10) Alzheimer's dementia: - Pt. is likely at baseline, cannot obtain history from her. - Will continue to monitor - re-orient frequently. (11) HLD (hyperlipidemia): - Continue statin agent as prescribed. DVT ppx: SCDs; Holding Xarelto in setting of acute bleed. Dispo: Admit to PCU/tele for treatment of GI bleed. FULL CODE - did not discuss with patient; per documentation from last admission. History of Present Illness Chief Complaint: Anemia Primary Care Provider: [facility] Ms. Rogers is an 89 y/o female with past medical history of HLD, HTN, Anxiety, Dementia, Depression, A. fib, CKD stage III who presented with anemia noted on labs from outside facility. She was admitted in September 2019 with sepsis related to presumed aspiration PNA and partial small bowel obstruction. Hemoglobin was 5.6 in the ER; will receive 2 units pRBCs. FOBT was positive. She has dementia, cannot obtain history from patient. Allergies Allergy/AdvReac Type Severity Reaction Status Date / Time morphine AdvReac Unknown hallucinati Verified 10/24/19 16:27 ons Home Medications Home Medications Medication Instructions Recorded Confirmed Type Combivent Respimat 20 - 100 mcg INHALATION Q6H PRN 06/18/18 10/24/19 History Xarelto 15 mg PO DAILY 06/18/18 10/24/19 History acetaminophen [Tylenol] 650 mg PO Q6H PRN 06/18/18 10/24/19 History amlodipine [Norvasc] 10 mg PO DAILY 06/18/18 10/24/19 History aspirin [Aspirin Childrens] 81 mg PO DAILY 06/18/18 10/24/19 History atorvastatin [Lipitor] 20 mg PO DAILY 06/18/18 10/24/19 History metoprolol tartrate 12.5 mg PO BID 06/18/18 10/24/19 History lorazepam 0.25 mg PO Q8 08/16/18 10/24/19 History ipratropium-albuterol 3 ml INHALATION Q4 PRN 10/02/19 10/24/19 History latanoprost 1 drp OPB DAILY 10/02/19 10/24/19 History venlafaxine 150 mg PO DAILY 10/02/19 10/24/19 History acetaminophen [Tylenol Extra 1,000 mg PO Q12 10/24/19 10/24/19 History Strength] hydrocortisone [Anusol-HC] 1 applic SD Q8 PRN 10/24/19 10/24/19 History magnesium hydroxide [Milk of 0 mg PO DAILY PRN 10/24/19 10/24/19 History Magnesia] sodium phosphates [Fleet Enema] 0 ml SD UD PRN 10/24/19 10/24/19 History Past Med/Surg History Medical History Acute encephalopathy H/0 Acute kidney injury H/0 Altered mental status Atrial fibrillation Chronic back pain CVA (cerebral vascular accident) Dysphagia History of fall History of fracture of left hip History of fracture of right hip Hyperlexia (Chronic) Hyperlipidemia Hypertension (Chronic) Iron deficiency anemia Osteoporosis Osteoporosis Rhabdomyolysis H/O Surgical History History of cataract surgery LEFT History of hip surgery LEFT Family History Other Family history non-contributory Social History Preferred Language: Iraqi Communication Ability: Unable Communication Ability Comment: dementia Municipal Clerk Required: No Beliefs That Will Affect Care: None Current Living Situation: Longterm Current Living Situation Comment: RESIDENT AT [facility] Other Information That Helps Us Care for You: No Feels Safe at Home: Yes Safety Concerns: Feels Safe At This Time Smoking Status: Former smoker Tobacco Type: cigarettes ; Hx Alcohol Use: No Hx Substance Use: No Review of Systems Review of Systems: Unobtainable due to cognitive status Physical Exam Physical Exam: General: Resting comfortably, no acute distress. HEENT: NC/AT; PERRLA with EOMI; Many conjunctiva, MMM. No erythema of posterior pharynx Neck: Supple and nontender Cardiac: RRR Lungs: on room air; diminished throughout all lung alva. Abdomen: Bowel normoactive X 4; Nontender to palpation Rectal: Deferred : Deferred Back: NO spinous tenderness Extremities: Warm. No edema present Neuro: No focal weakness; confused on exam, not alert to person or place. Skin: No rash Results & Data Vital Signs (Past 12 Hours) Vital Signs Temp Pulse Pulse Resp BP BP Pulse Ox 10/24/19 17:08 36.6 C 64 22 115/60 10/24/19 15:51 96 10/24/19 15:50 66 19 128/53 L 96 10/24/19 15:03 65 18 10/24/19 15:00 126/55 L 10/24/19 14:30 65 15 129/56 L 10/24/19 14:00 37.0 C 64 20 128/54 L 97 Laboratory Results 10/24/19 10/24/19 10/24/19 Range/Units 15:31 15:31 15:31 WBC 3.45 L (4.8-10.8) K/uL RBC 2.07 L (4.2-5.4) M/uL Hgb 5.7 L* (12.0-16.0) g/dL Hct 18.0 L* (37-47) % MCV 87.0 (80-100) fL MCH 27.5 (25-34) pg MCHC 31.7 L (32-36) g/dL RDW Std Deviation 51.8 H (36.4-46.3) fL RDW Coeff of Boris 16.0 H (11.5-14.5) % Plt Count 263 (130-400) K/uL MPV 8.0 (7.4-10.4) fL Immature Gran % (Auto) 0.6 % Neut % (Auto) 49.6 % Lymph % (Auto) 30.4 % Hartley % (Auto) 16.5 % Eos % (Auto) 2.3 % Baso % (Auto) 0.6 % Immature Gran # (Auto) 0.02 (0.00-0.02) K/uL Neut # (Auto) 1.71 (1.4-6.5) K/uL Lymph # (Auto) 1.05 L (1.2-3.4) K/uL Hartley # (Auto) 0.57 (0.11-0.59) K/uL Eos # (Auto) 0.08 (0-0.5) K/uL Baso # (Auto) 0.02 (0-0.2) K/uL Polychromasia 1+ PT 14.7 H (9.0-12.0) Seconds INR 1.5 H (0.9-1.1) APTT 34.2 H (21.0-31.0) Seconds PTT Ratio 1.3 Sodium 132 L (136-145) mmol/L Potassium 4.5 (3.5-5.1) mmol/L Chloride 102 (98-107) mmol/L Carbon Dioxide 27 (21-32) mmol/L Anion Gap 3.0 (3-11) BUN 30 H (7-18) mg/dl Creatinine 1.28 H (0.6-1.2) mg/dl Est Cr Clr Drug Dosing Not Reportable Est GFR ( Amer) 42.9 Est GFR (Non-Af Amer) 37.0 BUN/Creatinine Ratio 23.6 H (10-20) Glucose 93 (70-99) mg/dl Calcium 8.2 L (8.5-10.1) mg/dl Total Bilirubin 0.2 (0.2-1) mg/dl AST 18 (15-37) U/L ALT 27 (12-78) U/L Alkaline Phosphatase 95 (45-117) U/L Troponin I < 0.015 (0-0.045) ng/ml Total Protein 5.9 L (6.4-8.2) gm/dl Albumin 2.3 L (3.4-5.0) gm/dl Globulin 3.6 (2.5-4.0) gm/dl Albumin/Globulin Ratio 0.6 L (0.9-2) POC Stool Occult Blood (Negative) Blood Type Antibody Screen Crossmatch 10/24/19 10/24/19 Range/Units 15:31 15:00 WBC (4.8-10.8) K/uL RBC (4.2-5.4) M/uL Hgb (12.0-16.0) g/dL Hct (37-47) % MCV (80-100) fL MCH (25-34) pg MCHC (32-36) g/dL RDW Std Deviation (36.4-46.3) fL RDW Coeff of Boris (11.5-14.5) % Plt Count (130-400) K/uL MPV (7.4-10.4) fL Immature Gran % (Auto) % Neut % (Auto) % Lymph % (Auto) % Hartley % (Auto) % Eos % (Auto) % Baso % (Auto) % Immature Gran # (Auto) (0.00-0.02) K/uL Neut # (Auto) (1.4-6.5) K/uL Lymph # (Auto) (1.2-3.4) K/uL Hartley # (Auto) (0.11-0.59) K/uL Eos # (Auto) (0-0.5) K/uL Baso # (Auto) (0-0.2) K/uL Polychromasia PT (9.0-12.0) Seconds INR (0.9-1.1) APTT (21.0-31.0) Seconds PTT Ratio Sodium (136-145) mmol/L Potassium (3.5-5.1) mmol/L Chloride (98-107) mmol/L Carbon Dioxide (21-32) mmol/L Anion Gap (3-11) BUN (7-18) mg/dl Creatinine (0.6-1.2) mg/dl Est Cr Clr Drug Dosing Est GFR ( Amer) Est GFR (Non-Af Amer) BUN/Creatinine Ratio (10-20) Glucose (70-99) mg/dl Calcium (8.5-10.1) mg/dl Total Bilirubin (0.2-1) mg/dl AST (15-37) U/L ALT (12-78) U/L Alkaline Phosphatase (45-117) U/L Troponin I (0-0.045) ng/ml Total Protein (6.4-8.2) gm/dl Albumin (3.4-5.0) gm/dl Globulin (2.5-4.0) gm/dl Albumin/Globulin Ratio (0.9-2) POC Stool Occult Blood Positive A (Negative) Blood Type A Positive Antibody Screen NEGATIVE Crossmatch See Detail Code Status & VTE Plan Code Status FULL CODE VTE Prophylaxis Plan VTE Prophylaxis will be ordered: Yes Supervising Physician Co-Signing Physician Notes Attending Admission Note & Attestation: Pt seen/examined, chart reviewed, care plan d/w SHAMIR Mcqueen. I agree w/ the baca components of her admission documentation. 89yo female with advanced dementia and recent hospitalization at [facility] in 09/2019 for acute hypoxic resp failure 2nd to aspiration pneumonia (ultimately led to intubation/mech ventilation) along with pSBO - presents from [facility] with severe anemia with Hb <6. No melena or BRBPR by report but stool was heme+ in ER. Of note - Hb was 7.6 on 10/17/19. Fortunately pt is hemodynamically stable at time of admission. PMH, PSH, allergies, meds, sochx, famhx, ros - reviewed VSS, afebrile gen - NAD, very confused, asking if my son would be taking care of her mouth - MM dry neck - no JVD heart - RRR, s1 s2, 2/6 systolic murmur LSB lungs - CTA b/l abd - mild distension, BS+, NT, no HSM ext - no edema skin - pallor Hb 5.7 Cr 1.2 A/P: 1. acute / chronic anemia; baseline Hb 10-10.5 2. acute blood loss anemia 3. presumed upper GI bleeding in setting of chronic aspirin and xarelto use 4. abnormal EKG with ischemic changes (previous EKGs in the EMR have shown intermittent anterior ST depressions in the past) 5. CKD stage 3 6. advanced dementia 7. PAF Agree w/ NPO, Tx 2 units PRBCs, serial H/H's, PPI drip, GI consultation in am. KUB x-ray due to modest abd distension - r/o any recurrent obstructive process (although no emesis by history). HOLD asa/xarelto. PCU status. Russel Baca MD PG Care Time/CCT Total # of Minutes Spent Total Time Spent with Patient: Total time spent is greater than 50% in coordination of care (as documented) at patient's floor/unit and/or counseling patient: (1) Anemia Anemia type: unspecified type Qualified Code(s): D64.9 - Anemia, unspecified
[2019-10-24] MEDS ORDERED: ACETAMINOPHEN 325 MG TAB PO PRN (18:59)
[2019-10-24] MEDS ORDERED: ALBUT/IPRATROP 3MG/0.5MG NEB 3 ML VIAL INH PRN (18:59)
--- NOTE | 2019-10-24 19:46 | XRay Report ---
XR KUB/Abdomen 1 view CLINICAL HISTORY: abd distension; previous SBO 09/2019 COMPARISON STUDY: No previous studies for comparison. FINDINGS: There is a bipolar left hip arthroplasty. There are scattered abdominal clips within the ab domen. There is no pathologic bowel dilatation. There is an unusual lucency within the upper mid abdo men, possibly related to a skinfold. If there is clinical concern over the presence of more ominous i ntra-abdominal pathology, then additional imaging should be obtained in follow-up IMPRESSION: 1. Nonobstructive bowel gas pattern 2. Nonspecific upper abdominal line shadow and central lucency possibly related to a skinfold. ACT 112: Negative or not required by law. Electronically signed by: Samm Herrera M.D. 10/24/2019 7:44 PM
--- NOTE | 2019-10-24 20:09 | Emergency Department Note ---
Entered by Francesca Cobos acting as a scribe for History of Present Illness General Chief complaint: Abnormal Labs/Diagnostic Testing Time Seen by Provider: 10/24/19 14:39 Source: patient, EMS and old records reviewed Mode of arrival: EMS History of Present Illness Onset (ago): hour(s) (this morning) Location: head Pain Consistency: + other (persistent) Maximum Pain Intensity: 0 Quality: + other (anemia) Associated symptoms: + denies other symptoms (shortness of breath, abdominal pain) and + other (pain across upper chest) The patient is a 89 year old female that is presenting to the Emergency Room with complaints of persistent and worsening anemia that was found on routine blood work this morning. The patient arrived to the ED via EMS from [facility]. EMS notes that the patient has dementia at baseline. The patient denies any shortness of breath or abdominal pain. She endorses some pain across her upper chest. On review of the patients records, she was had a hemoglobin of 7.8 on 10/17/2019. She was found to have a hemoglobin of 5.6 today. The patient takes Xarelto for a history of atrial fibrillation. HPI and ROS are limited secondary to the patients mental status. Home Medications Home Medications Medication Instructions Recorded Confirmed Type Combivent Respimat 20 - 100 mcg INHALATION Q6H PRN 06/18/18 10/24/19 History Xarelto 15 mg PO DAILY 06/18/18 10/24/19 History acetaminophen [Tylenol] 650 mg PO Q6H PRN 06/18/18 10/24/19 History amlodipine [Norvasc] 10 mg PO DAILY 06/18/18 10/24/19 History aspirin [Aspirin Childrens] 81 mg PO DAILY 06/18/18 10/24/19 History atorvastatin [Lipitor] 20 mg PO DAILY 06/18/18 10/24/19 History metoprolol tartrate 12.5 mg PO BID 06/18/18 10/24/19 History lorazepam 0.25 mg PO Q8 08/16/18 10/24/19 History ipratropium-albuterol 3 ml INHALATION Q4 PRN 10/02/19 10/24/19 History latanoprost 1 drp OPB DAILY 10/02/19 10/24/19 History venlafaxine 150 mg PO DAILY 10/02/19 10/24/19 History acetaminophen [Tylenol Extra 1,000 mg PO Q12 10/24/19 10/24/19 History Strength] hydrocortisone [Anusol-HC] [address] Q8 PRN 10/24/19 10/24/19 History magnesium hydroxide [Milk of 0 mg PO DAILY PRN 10/24/19 10/24/19 History Magnesia] sodium phosphates [Fleet Enema] [address] UD PRN 10/24/19 10/24/19 History Allergies Allergy/AdvReac Type Severity Reaction Status Date / Time morphine AdvReac Unknown hallucinati Verified 10/24/19 16:27 ons Past Med/Surg History Medical History Acute encephalopathy H/0 Acute kidney injury H/0 Altered mental status Atrial fibrillation Chronic back pain CVA (cerebral vascular accident) Dysphagia History of fall History of fracture of left hip History of fracture of right hip Hyperlexia (Chronic) Hyperlipidemia Hypertension (Chronic) Iron deficiency anemia Osteoporosis Osteoporosis Rhabdomyolysis H/O Surgical History History of cataract surgery LEFT History of hip surgery LEFT Family History Other Family history non-contributory Social History Preferred Language: Tajik Communication Ability: Unable Communication Ability Comment: dementia Workers Compensation Claims Assistant Required: No Beliefs That Will Affect Care: None Current Living Situation: Custodial Current Living Situation Comment: RESIDENT AT [facility] Other Information That Helps Us Care for You: No Feels Safe at Home: Yes Safety Concerns: Feels Safe At This Time Smoking Status: Former smoker Tobacco Type: cigarettes ; Hx Alcohol Use: No Hx Substance Use: No Review of Systems HPI and ROS are limited secondary to the patients mental status. Physical Exam Vital Signs Vital Signs - 24 hr 10/24/19 14:00 10/24/19 14:30 10/24/19 15:00 Temperature 37.0 C Temperature Source Oral Pulse Rate 64 65 Pulse Rate [Apical] Respiratory Rate 20 15 Respiratory Effort / Characteristics Non-Labored Respiratory Depth Normal Blood Pressure 128/54 L 129/56 L 126/55 L Blood Pressure [Right Arm] Blood Pressure Mean 78 93 81 Blood Pressure Mean [Right Arm] Pulse Oximetry 97 Oxygen Delivery Method Room Air Sepsis Recent Fever Within 48 Hours No Sepsis Action Taken by Nursing No Action Required 10/24/19 15:03 10/24/19 15:50 10/24/19 15:51 Temperature Temperature Source Pulse Rate 65 Pulse Rate [Apical] 66 Respiratory Rate 18 19 Respiratory Effort / Characteristics Respiratory Depth Blood Pressure Blood Pressure [Right Arm] 128/53 L Blood Pressure Mean Blood Pressure Mean [Right Arm] 78 Pulse Oximetry 96 96 Oxygen Delivery Method Room Air Room Air Sepsis Recent Fever Within 48 Hours Sepsis Action Taken by Nursing GENERAL: Patient is in no acute distress. HEENT: No acute trauma, normocephalic atraumatic, mucous membranes moist, no nasal congestion, no scleral icterus. NECK: No stridor, no adenopathy, no meningismus, trachea is midline. LUNGS: Clear to auscultation bilaterally, no wheeze, no rhonchi, breath sounds equal. HEART: 3/6 systolic murmur. RRR noted at time of auscultation. ABDOMEN: Soft, nontender, bowel sounds positive, no hernias, no peritonitis. RECTAL: Dark stool, heme positive. EXTREMITIES: No cyanosis or edema, full range of motion of all the joints without pain or difficulty, no signs for acute trauma. NEUROLOGIC: Awake and alert, no acute motor or sensory deficits, no focal weakness. SKIN: No rash, no jaundice, no diaphoresis. Pale. Course Course 1443:The patient was evaluated in room B11A. A complete history and physical examination was performed. 1531: I discussed the patients case with Dr. Ruff, [facility], who will evaluate the patient for further management and care. 1600: Upon reevaluation, the patient is resting comfortably. I discussed laboratory and radiographic results with the patient. She verbalized agreement of the treatment plan. The patient will be evaluated for further management and care. Administered Medications Pantoprazole Sodium 40 mg/ (Dextrose) 100 mls @ 20 mls/hr IV Q5H LISA Stop: 11/23/19 15:14 Last Admin: 10/24/19 20:30 Dose: 20 mls/hr Documented by: [id number] Infusion: 10/24/19 20:30 Dose: 20 mls/hr Documented by: [id number] Admin: 10/24/19 16:35 Dose: 20 mls/hr Documented by: [id number] Discontinued Medications Sodium Chloride (Nss) 500 mls @ 999 mls/hr IV .Q31M LISA Stop: 10/24/19 15:30 Last Infusion: 10/24/19 17:07 Dose: 0 mls/hr Documented by: [id number] Admin: 10/24/19 16:36 Dose: 999 mls/hr Documented by: [id number] Pantoprazole Sodium 80 mg/ (Dextrose) 120 mls @ 480 mls/hr IV NOW ONE Stop: 10/24/19 15:14 Last Infusion: 10/24/19 16:28 Dose: 0 mls/hr Documented by: [id number] Admin: 10/24/19 16:13 Dose: 480 mls/hr Documented by: [id number] Critical Care Time Critical Care Time: Yes Total Critical Care Time: 42 I have personally spent 42 minutes of critical care time in the direct management of this patient. This includes bedside care, interpretation of diagnostic studies, and testing, discussion with consultants, patient, and family members, and other required patient management activities. This 42 minutes is in excess of all separately billable procedures. Medical Decision Making Differential Diagnosis Differential diagnosis: Etiologies such as upper or lower GI bleed, anemia, coagulopathy, cardiac ischemia, ulcer, gastritis, malignancy as well as others were entertained. Medical Records Attestation: I reviewed the patient's medical records. Home Medications Current Medication List: was personally reviewed by me Laboratory Data Attestation: I reviewed the patient's lab results. Result diagrams: 10/24/19 15:31 10/24/19 15:31 Lab Results 10/24/19 10/24/19 10/24/19 Range/Units 15:00 15:31 15:31 WBC 3.45 L (4.8-10.8) K/uL RBC 2.07 L (4.2-5.4) M/uL Hgb 5.7 L* (12.0-16.0) g/dL Hct 18.0 L* (37-47) % MCV 87.0 (80-100) fL MCH 27.5 (25-34) pg MCHC 31.7 L (32-36) g/dL RDW Std Deviation 51.8 H (36.4-46.3) fL RDW Coeff of Boris 16.0 H (11.5-14.5) % Plt Count 263 (130-400) K/uL MPV 8.0 (7.4-10.4) fL Immature Gran % (Auto) 0.6 % Neut % (Auto) 49.6 % Lymph % (Auto) 30.4 % Canyon % (Auto) 16.5 % Eos % (Auto) 2.3 % Baso % (Auto) 0.6 % Immature Gran # (Auto) 0.02 (0.00-0.02) K/uL Neut # (Auto) 1.71 (1.4-6.5) K/uL Lymph # (Auto) 1.05 L (1.2-3.4) K/uL Canyon # (Auto) 0.57 (0.11-0.59) K/uL Eos # (Auto) 0.08 (0-0.5) K/uL Baso # (Auto) 0.02 (0-0.2) K/uL Polychromasia 1+ PT (9.0-12.0) Seconds INR (0.9-1.1) APTT (21.0-31.0) Seconds PTT Ratio Sodium (136-145) mmol/L Potassium (3.5-5.1) mmol/L Chloride (98-107) mmol/L Carbon Dioxide (21-32) mmol/L Anion Gap (3-11) BUN (7-18) mg/dl Creatinine (0.6-1.2) mg/dl Est Cr Clr Drug Dosing Est GFR ( Amer) Est GFR (Non-Af Amer) BUN/Creatinine Ratio (10-20) Glucose (70-99) mg/dl Calcium (8.5-10.1) mg/dl Total Bilirubin (0.2-1) mg/dl AST (15-37) U/L ALT (12-78) U/L Alkaline Phosphatase (45-117) U/L Troponin I (0-0.045) ng/ml Total Protein (6.4-8.2) gm/dl Albumin (3.4-5.0) gm/dl Globulin (2.5-4.0) gm/dl Albumin/Globulin Ratio (0.9-2) POC Stool Occult Blood Positive A (Negative) Blood Type A Positive Antibody Screen NEGATIVE Crossmatch See Detail 10/24/19 10/24/19 Range/Units 15:31 15:31 WBC (4.8-10.8) K/uL RBC (4.2-5.4) M/uL Hgb (12.0-16.0) g/dL Hct (37-47) % MCV (80-100) fL MCH (25-34) pg MCHC (32-36) g/dL RDW Std Deviation (36.4-46.3) fL RDW Coeff of Boris (11.5-14.5) % Plt Count (130-400) K/uL MPV (7.4-10.4) fL Immature Gran % (Auto) % Neut % (Auto) % Lymph % (Auto) % Canyon % (Auto) % Eos % (Auto) % Baso % (Auto) % Immature Gran # (Auto) (0.00-0.02) K/uL Neut # (Auto) (1.4-6.5) K/uL Lymph # (Auto) (1.2-3.4) K/uL Canyon # (Auto) (0.11-0.59) K/uL Eos # (Auto) (0-0.5) K/uL Baso # (Auto) (0-0.2) K/uL Polychromasia PT 14.7 H (9.0-12.0) Seconds INR 1.5 H (0.9-1.1) APTT 34.2 H (21.0-31.0) Seconds PTT Ratio 1.3 Sodium 132 L (136-145) mmol/L Potassium 4.5 (3.5-5.1) mmol/L Chloride 102 (98-107) mmol/L Carbon Dioxide 27 (21-32) mmol/L Anion Gap 3.0 (3-11) BUN 30 H (7-18) mg/dl Creatinine 1.28 H (0.6-1.2) mg/dl Est Cr Clr Drug Dosing Not Reportable Est GFR ( Amer) 42.9 Est GFR (Non-Af Amer) 37.0 BUN/Creatinine Ratio 23.6 H (10-20) Glucose 93 (70-99) mg/dl Calcium 8.2 L (8.5-10.1) mg/dl Total Bilirubin 0.2 (0.2-1) mg/dl AST 18 (15-37) U/L ALT 27 (12-78) U/L Alkaline Phosphatase 95 (45-117) U/L Troponin I < 0.015 (0-0.045) ng/ml Total Protein 5.9 L (6.4-8.2) gm/dl Albumin 2.3 L (3.4-5.0) gm/dl Globulin 3.6 (2.5-4.0) gm/dl Albumin/Globulin Ratio 0.6 L (0.9-2) POC Stool Occult Blood (Negative) Blood Type Antibody Screen Crossmatch Imaging Data Radiologist's Impression: Radiology results as stated below per my review and the radiologist's interpretation: XR chest 1V portable CLINICAL HISTORY: weakness dyspnea COMPARISON STUDY: 10/03/2019 FINDINGS: Myocardial megaly. Slight prominence of the pulmonary vasculature. Diaphragms are smooth. No focal infiltrate. Degenerative changes of the shoulders bilaterally. IMPRESSION: Mild cardiac megaly. Pulmonary vascular congestion. ACT 112: Negative or not required by law. The above report was generated using voice recognition software. It may contain grammatical, syntax or spelling errors. Electronically signed by: Sudarshan Sun M.D. 10/24/2019 3:03 PM ECG Data Attestation: I personally reviewed and interpreted this ECG as follows: Indication: + weakness Rate (beats per minute): 66 Rhythm: + normal sinus ECG Intervals/blocks: + Normal QT-c (438) ECG ST segments: + T-wave inversions (Anterolateral) ECG Findings: no PVCs Comparison ECG Date: from (10/05/2019) Change: the following changes noted (T-wave inversions are more prominent today) Blood Pressure Blood Pressure Findings: Elevated blood pressure Blood Pressure Disposition: Referred to patients primary care provider [facility] Narrative There is a slightly low white blood cell count. Hemoglobin quite low at 5.7. Platelet count was normal. INR is somewhat elevated at 1.5, likely from her Xarelto use. No worrisome electrolyte abnormality, no kidney failure. No liver enzyme elevation. EKG showed a sinus rhythm with some T wave inversions in the anterior and lateral leads. These changes were more pronounced than on previous EKGs. Cardiac enzyme testing x1 is not consistent with acute cardiac injury. Chest film did not show pneumonia or CHF. On exam, patient seemed slightly pale, vital signs were stable. Stool was dark in color and heme positive. The patient was aggressively managed given her findings. She was given a bolus of IV Protonix and then placed on an IV Protonix drip. She received a bolus of IV saline. She was ordered for blood for transfusion, the first unit was ordered to be given here in the ED. Consent for the blood transfusion was completed. The patient requires a hospital stay. She has a GI bleed. This has caused her anemia. She is at increased risk because of her Xarelto use. I did speak to the patient, I talked with case management. The on-call hospitalist has been consulted. Continuous Cardiac Monitoring: An order for continuous cardiac monitoring was placed. Indication: Weakness Rhythm: Normal Sinus Rate: 65bpm Impression & Plan GI bleed, Anemia, Abnormal ECG, Heme positive stool Discharge Plan Visit Data *Final* Discharge Date/Time: 10/24/19 18:28 Chief Complaint: Abnormal Labs/Diagnostic Testing ED Provider: True Baer Discharge Problem: GI bleed, Anemia, Abnormal ECG, Heme positive stool Patient Disposition: Admitted As Inpatient Discharge Instructions Interventions: ED Discharge Assessment Last Done: 10/24/19 18:28 Discharge Problem: GI bleed Qualifiers: GI bleed type/associated pathology: unspecified gastrointestinal hemorrhage type Qualified Code(s): K92.2 - Gastrointestinal hemorrhage, unspecified Anemia Qualifiers: Anemia type: unspecified type Qualified Code(s): D64.9 - Anemia, unspecified The miibe's documentation has been prepared under my direction and personally reviewed by me in its entirety. I confirm that the note above accurately reflects all work, treatment, procedures, and medical decision making performed by me.
[2019-10-25] MEDS: SODIUM CHLORIDE 0.9% 1000ML 1,000 ML IV SCH ×3 (00:45→20:37)
[2019-10-25] MEDS: PANTOprazole 40 MG in DEXTROSE 5% 100 ML IV SCH ×5 (02:00→21:58)
[2019-10-25 02:48] LABS: Blood Urea Nitrogen 24 mg/dl (7-18); Carbon Dioxide 25 mmol/L (21-32); Chloride 104 mmol/L (98-107); Creatinine Clr Calc Pharmacy 24.9 ml/min; Est GFR (African American) 51.5; Est GFR (Non-African American) 44.5; Glucose 85 mg/dl (70-99); Magnesium 2.3 mg/dl (1.8-2.4); Potassium 3.9 mmol/L (3.5-5.1); Sodium 133 mmol/L (136-145)
[2019-10-25 02:53] LABS: Troponin I < 0.015 ng/ml (0-0.045)
[2019-10-25 02:54] LABS: Hemoglobin 9.4 g/dL (12.0-16.0); Mean Corpuscular Hgb Conc 33.6 g/dL (32-36); Mean Corpuscular Volume 86.4 fL (80-100); Mean Platelet Volume 8.5 fL (7.4-10.4); Platelet Count 215 K/uL (130-400); RDW Coefficient of Variation 14.4 % (11.5-14.5); RDW Standard Deviation 45.3 fL (36.4-46.3); Red Blood Count 3.24 M/uL (4.2-5.4); White Blood Count 3.94 K/uL (4.8-10.8)
[2019-10-25 05:38] LABS: Hematocrit (blood only) 29.3 % (37-47); Hemoglobin 9.6 g/dL (12.0-16.0); Mean Corpuscular Hemoglobin 28.3 pg (25-34); Mean Corpuscular Hgb Conc 32.8 g/dL (32-36); Mean Corpuscular Volume 86.4 fL (80-100); Mean Platelet Volume 8.4 fL (7.4-10.4); Platelet Count 244 K/uL (130-400); RDW Coefficient of Variation 14.4 % (11.5-14.5); Red Blood Count 3.39 M/uL (4.2-5.4); White Blood Count 4.07 K/uL (4.8-10.8)
[2019-10-25 05:42] LABS: INR 1.1 (0.9-1.1); Prothrombin Time 11.4 Seconds (9.0-12.0)
--- NOTE | 2019-10-25 08:15 | Gastrointestinal Consultation ---
Date of Consultation October 25, 2019 Assessment & Plan (1) Anemia: Pt is an 89 y/o female with PMHx Alzheimer's, PAF, CKD, CVA, chronic anemia, who developed worsening anemia as an outpt; admitted yesterday with HGB 5.6. Overnight has improved to 9.6 with 2 units pRBC which suggests overes timation of improvement or falsley low HGB initially. No obvious s/s GIB with brown stool, no hematemesis. Abd is soft. She is hemodynamically stable at present with no GI output overnight. - Would trend H&H, transfuse PRN - Reasonable to start PPI daily - Will defer management of AC to primary team - No plans for endoscopy during this admission - Consider starting oral iron on discharge - Can start clear liquid diet, advance as tolerated - Recommend outpt monitoring of H&H and stool output as is done by her alf Supervising Physician Co-Signing Physician Notes I have seen and examined the patient with Matias Rasmussen PA-C whose note reflects our findings and plan. No overt s/s of Gi bleeding. Verified with alf care providers this AM. hgb on admission reported as 5.6. (Baseline 7.6 following recent hospitalization) Received 2 units of blood yet the repeat H/H post transfusion is reported as 10.4. No melena no hematochezia. Stool is soft and brown. Last hospitalization was for acute respiratory failure. No reason for endoscopic procedure at this time. Would treat conservatively with PPI. Follow H/H. Imaging and labs reviewed. Abd exam is benign. History of Present Illness Reason for Consultation: GI bleed Attending Physician: Mishel Spicer MD History of Present Illness Pt is an 89 y/o female with PMhx Alzheimer's dementia, a-fib on Xarelto, CKD, anemia, and others below, who resides at [facility] and was recently admitted last month for pneumonia, who had progressive anemia noted as an outpt; HGB on 10/17 was 7.6 and when repeated yesterday was 5.6; she was referred to the ER and then admitted; given 2 units pRBC. Today HGB 9.6 (normocytic normochromic). BUN 30, cr 1.1 (baseline is actually a little worse); plts 244, INR 1.1; Na a little low at 133; normal LFTs. Yesterday CXR without acute changes, KUB with nonobstructive bowel pattern. Today she is hemodynamically stable and without complaints this AM. At baseline she is confused thus history gathering primarily through hospital staff and call with her alf caregivers. They report she's been at baseline recently; they have been checking her stools daily; moves her bowels every 1-2 days and they are soft, brown; no melena, hematochezia, hematemesis. Hemoccult stools were neg x 3 as an out pt (checked due to anemia). She's had no GI output overnight. Pt denies current abd pain, nausea, vomiting, abd bloating, chest pain, cough, dyspnea, dysuria. On review of records: - Surgical hx includes right nephrectomy, right breast lumpectomy, appendectomy, left hip hemiarthroplasty - Social hx includes no reported previous smoking or alcohol use. Lives at [facility]. Allergies Allergy/AdvReac Type Severity Reaction Status Date / Time morphine AdvReac Unknown hallucinati Verified 10/24/19 16:27 ons Home Medications Home Medications Medication Instructions Recorded Confirmed Type Combivent Respimat 20 - 100 mcg INHALATION Q6H PRN 06/18/18 10/24/19 History Xarelto 15 mg PO DAILY 06/18/18 10/24/19 History acetaminophen [Tylenol] 650 mg PO Q6H PRN 06/18/18 10/24/19 History amlodipine [Norvasc] 10 mg PO DAILY 06/18/18 10/24/19 History aspirin [Aspirin Childrens] 81 mg PO DAILY 06/18/18 10/24/19 History atorvastatin [Lipitor] 20 mg PO DAILY 06/18/18 10/24/19 History metoprolol tartrate 12.5 mg PO BID 06/18/18 10/24/19 History lorazepam 0.25 mg PO Q8 08/16/18 10/24/19 History ipratropium-albuterol 3 ml INHALATION Q4 PRN 10/02/19 10/24/19 History latanoprost 1 drp OPB DAILY 10/02/19 10/24/19 History venlafaxine 150 mg PO DAILY 10/02/19 10/24/19 History acetaminophen [Tylenol Extra 1,000 mg PO Q12 10/24/19 10/24/19 History Strength] hydrocortisone [Anusol-HC] 1 applic SC Q8 PRN 10/24/19 10/24/19 History magnesium hydroxide [Milk of 0 mg PO DAILY PRN 10/24/19 10/24/19 History Magnesia] sodium phosphates [Fleet Enema] 0 ml SC UD PRN 10/24/19 10/24/19 History Patient History Medical History Acute encephalopathy H/0 Acute kidney injury H/0 Altered mental status Atrial fibrillation Chronic back pain CVA (cerebral vascular accident) Dysphagia History of fall History of fracture of left hip History of fracture of right hip Hyperlexia (Chronic) Hyperlipidemia Hypertension (Chronic) Iron deficiency anemia Osteoporosis Osteoporosis Rhabdomyolysis H/O Surgical History History of cataract surgery LEFT History of hip surgery LEFT Family History Other Family history non-contributory Social History Preferred Language: Pakistani Communication Ability: Impaired Communication Ability Comment: dementia Chief [employer] Required: No Beliefs That Will Affect Care: None Current Living Situation: Custodial Current Living Situation Comment: RESIDENT AT [facility] Other Information That Helps Us Care for You: No Feels Safe at Home: Yes Safety Concerns: Feels Safe At This Time Smoking Status: Former smoker Tobacco Type: cigarettes ; Hx Alcohol Use: No Hx Substance Use: No Review of Systems Review of Systems: Unobtainable due to cognitive status Physical Exam Constitutional: well developed; no acute distress and not ill appearing Eyes: sclerae not anicteric Respiratory: normal respiratory effort, lungs clear to auscultation Cardiovascular: Rate/Rhythm: regular rate and regular rhythm Gastrointestinal (Abdomen): normal bowel sounds, soft, nontender, no hepatosplenomegaly (non distended ) Skin: no rashes, warm and dry Psychiatric: Orientation: alert not oriented; speech is fluent Results & Data Vital Signs (Past 12 Hours) Vital Signs Temp Pulse Pulse Resp BP BP Pulse Ox 10/25/19 07:28 36.5 C 68 19 119/51 L 100 10/25/19 03:34 36.5 C 63 18 129/49 L 100 10/25/19 00:33 36.5 C 63 18 137/57 L 99 10/25/19 00:06 36.5 C 62 18 131/54 L 95 10/25/19 00:00 62 10/24/19 23:00 36.5 C 61 18 133/51 L 94 10/24/19 22:30 36.5 C 60 20 126/61 100 10/24/19 22:15 36.9 C 63 18 132/54 L 98 10/24/19 21:59 36.8 C 61 18 133/51 L 96 10/24/19 21:00 36.8 C 67 18 127/52 L 95 Laboratory Results 10/25/19 10/25/19 10/25/19 Range/Units 05:16 05:16 05:16 WBC 4.07 L (4.8-10.8) K/uL RBC 3.39 L (4.2-5.4) M/uL Hgb 9.6 L (12.0-16.0) g/dL Hct 29.3 L (37-47) % MCV 86.4 (80-100) fL MCH 28.3 (25-34) pg MCHC 32.8 (32-36) g/dL RDW Std Deviation 45.0 (36.4-46.3) fL RDW Coeff of Boris 14.4 (11.5-14.5) % Plt Count 244 (130-400) K/uL MPV 8.4 (7.4-10.4) fL Immature Gran % (Auto) % Neut % (Auto) % Lymph % (Auto) % [place] % (Auto) % Eos % (Auto) % Baso % (Auto) % Immature Gran # (Auto) (0.00-0.02) K/uL Neut # (Auto) (1.4-6.5) K/uL Lymph # (Auto) (1.2-3.4) K/uL [place] # (Auto) (0.11-0.59) K/uL Eos # (Auto) (0-0.5) K/uL Baso # (Auto) (0-0.2) K/uL Polychromasia PT 11.4 (9.0-12.0) Seconds INR 1.1 (0.9-1.1) APTT (21.0-31.0) Seconds PTT Ratio Sodium (136-145) mmol/L Potassium (3.5-5.1) mmol/L Chloride (98-107) mmol/L Carbon Dioxide (21-32) mmol/L Anion Gap (3-11) BUN (7-18) mg/dl Creatinine (0.6-1.2) mg/dl Est Cr Clr Drug Dosing Est GFR ( Amer) Est GFR (Non-Af Amer) BUN/Creatinine Ratio (10-20) Glucose (70-99) mg/dl Calcium (8.5-10.1) mg/dl Magnesium (1.8-2.4) mg/dl Total Bilirubin (0.2-1) mg/dl AST (15-37) U/L ALT (12-78) U/L Alkaline Phosphatase (45-117) U/L Troponin I < 0.015 (0-0.045) ng/ml Total Protein (6.4-8.2) gm/dl Albumin (3.4-5.0) gm/dl Globulin (2.5-4.0) gm/dl Albumin/Globulin Ratio (0.9-2) POC Stool Occult Blood (Negative) Blood Type Antibody Screen Crossmatch 10/25/19 10/25/19 10/24/19 Range/Units 02:15 02:15 15:31 WBC 3.94 L (4.8-10.8) K/uL RBC 3.24 L (4.2-5.4) M/uL Hgb 9.4 L D (12.0-16.0) g/dL Hct 28.0 L (37-47) % MCV 86.4 (80-100) fL MCH 29.0 (25-34) pg MCHC 33.6 (32-36) g/dL RDW Std Deviation 45.3 (36.4-46.3) fL RDW Coeff of Boris 14.4 (11.5-14.5) % Plt Count 215 (130-400) K/uL MPV 8.5 (7.4-10.4) fL Immature Gran % (Auto) % Neut % (Auto) % Lymph % (Auto) % [place] % (Auto) % Eos % (Auto) % Baso % (Auto) % Immature Gran # (Auto) (0.00-0.02) K/uL Neut # (Auto) (1.4-6.5) K/uL Lymph # (Auto) (1.2-3.4) K/uL [place] # (Auto) (0.11-0.59) K/uL Eos # (Auto) (0-0.5) K/uL Baso # (Auto) (0-0.2) K/uL Polychromasia PT (9.0-12.0) Seconds INR (0.9-1.1) APTT (21.0-31.0) Seconds PTT Ratio Sodium 133 L 132 L (136-145) mmol/L Potassium 3.9 4.5 (3.5-5.1) mmol/L Chloride 104 102 (98-107) mmol/L Carbon Dioxide 25 27 (21-32) mmol/L Anion Gap 4.0 3.0 (3-11) BUN 24 H 30 H (7-18) mg/dl Creatinine 1.10 1.28 H (0.6-1.2) mg/dl Est Cr Clr Drug Dosing 24.9 Not Reportable Est GFR ( Amer) 51.5 42.9 Est GFR (Non-Af Amer) 44.5 37.0 BUN/Creatinine Ratio 22.0 H 23.6 H (10-20) Glucose 85 93 (70-99) mg/dl Calcium 8.0 L 8.2 L (8.5-10.1) mg/dl Magnesium 2.3 (1.8-2.4) mg/dl Total Bilirubin 0.2 (0.2-1) mg/dl AST 18 (15-37) U/L ALT 27 (12-78) U/L Alkaline Phosphatase 95 (45-117) U/L Troponin I < 0.015 < 0.015 (0-0.045) ng/ml Total Protein 5.9 L (6.4-8.2) gm/dl Albumin 2.3 L (3.4-5.0) gm/dl Globulin 3.6 (2.5-4.0) gm/dl Albumin/Globulin Ratio 0.6 L (0.9-2) POC Stool Occult Blood (Negative) Blood Type Antibody Screen Crossmatch 10/24/19 10/24/19 10/24/19 Range/Units 15:31 15:31 15:31 WBC 3.45 L (4.8-10.8) K/uL RBC 2.07 L (4.2-5.4) M/uL Hgb 5.7 L* (12.0-16.0) g/dL Hct 18.0 L* (37-47) % MCV 87.0 (80-100) fL MCH 27.5 (25-34) pg MCHC 31.7 L (32-36) g/dL RDW Std Deviation 51.8 H (36.4-46.3) fL RDW Coeff of Boris 16.0 H (11.5-14.5) % Plt Count 263 (130-400) K/uL MPV 8.0 (7.4-10.4) fL Immature Gran % (Auto) 0.6 % Neut % (Auto) 49.6 % Lymph % (Auto) 30.4 % [place] % (Auto) 16.5 % Eos % (Auto) 2.3 % Baso % (Auto) 0.6 % Immature Gran # (Auto) 0.02 (0.00-0.02) K/uL Neut # (Auto) 1.71 (1.4-6.5) K/uL Lymph # (Auto) 1.05 L (1.2-3.4) K/uL [place] # (Auto) 0.57 (0.11-0.59) K/uL Eos # (Auto) 0.08 (0-0.5) K/uL Baso # (Auto) 0.02 (0-0.2) K/uL Polychromasia 1+ PT 14.7 H (9.0-12.0) Seconds INR 1.5 H (0.9-1.1) APTT 34.2 H (21.0-31.0) Seconds PTT Ratio 1.3 Sodium (136-145) mmol/L Potassium (3.5-5.1) mmol/L Chloride (98-107) mmol/L Carbon Dioxide (21-32) mmol/L Anion Gap (3-11) BUN (7-18) mg/dl Creatinine (0.6-1.2) mg/dl Est Cr Clr Drug Dosing Est GFR ( Amer) Est GFR (Non-Af Amer) BUN/Creatinine Ratio (10-20) Glucose (70-99) mg/dl Calcium (8.5-10.1) mg/dl Magnesium (1.8-2.4) mg/dl Total Bilirubin (0.2-1) mg/dl AST (15-37) U/L ALT (12-78) U/L Alkaline Phosphatase (45-117) U/L Troponin I (0-0.045) ng/ml Total Protein (6.4-8.2) gm/dl Albumin (3.4-5.0) gm/dl Globulin (2.5-4.0) gm/dl Albumin/Globulin Ratio (0.9-2) POC Stool Occult Blood (Negative) Blood Type A Positive Antibody Screen NEGATIVE Crossmatch See Detail 10/24/19 Range/Units 15:00 WBC (4.8-10.8) K/uL RBC (4.2-5.4) M/uL Hgb (12.0-16.0) g/dL Hct (37-47) % MCV (80-100) fL MCH (25-34) pg MCHC (32-36) g/dL RDW Std Deviation (36.4-46.3) fL RDW Coeff of Boris (11.5-14.5) % Plt Count (130-400) K/uL MPV (7.4-10.4) fL Immature Gran % (Auto) % Neut % (Auto) % Lymph % (Auto) % [place] % (Auto) % Eos % (Auto) % Baso % (Auto) % Immature Gran # (Auto) (0.00-0.02) K/uL Neut # (Auto) (1.4-6.5) K/uL Lymph # (Auto) (1.2-3.4) K/uL [place] # (Auto) (0.11-0.59) K/uL Eos # (Auto) (0-0.5) K/uL Baso # (Auto) (0-0.2) K/uL Polychromasia PT (9.0-12.0) Seconds INR (0.9-1.1) APTT (21.0-31.0) Seconds PTT Ratio Sodium (136-145) mmol/L Potassium (3.5-5.1) mmol/L Chloride (98-107) mmol/L Carbon Dioxide (21-32) mmol/L Anion Gap (3-11) BUN (7-18) mg/dl Creatinine (0.6-1.2) mg/dl Est Cr Clr Drug Dosing Est GFR ( Amer) Est GFR (Non-Af Amer) BUN/Creatinine Ratio (10-20) Glucose (70-99) mg/dl Calcium (8.5-10.1) mg/dl Magnesium (1.8-2.4) mg/dl Total Bilirubin (0.2-1) mg/dl AST (15-37) U/L ALT (12-78) U/L Alkaline Phosphatase (45-117) U/L Troponin I (0-0.045) ng/ml Total Protein (6.4-8.2) gm/dl Albumin (3.4-5.0) gm/dl Globulin (2.5-4.0) gm/dl Albumin/Globulin Ratio (0.9-2) POC Stool Occult Blood Positive A (Negative) Blood Type Antibody Screen Crossmatch Diagnostic Findings KUB 10/24/19: IMPRESSION: Nonobstructive bowel gas pattern. Nonspecific upper abdominal line shadow and central lucency possibly related to a skinfold. CXR 10/24/19: IMPRESSION: Mild cardiac megaly. Pulmonary vascular congestion. (1) Anemia Anemia type: unspecified type Qualified Code(s): D64.9 - Anemia, unspecified
[2019-10-25] MEDS: ATORVASTATIN 20 MG TAB PO SCH (09:56)
[2019-10-25] MEDS: LATANOPROST 0.005% OP SOLN 2.5 ML BTL OPB SCH (09:56)
[2019-10-25] MEDS: VENLAFAXINE HCL XR 150 MG CAPXR PO SCH (09:56)
[2019-10-25 12:08] LABS: Hematocrit (blood only) 30.7 % (37-47); Hemoglobin 10.4 g/dL (12.0-16.0); Mean Corpuscular Hemoglobin 29.2 pg (25-34); Mean Corpuscular Hgb Conc 33.9 g/dL (32-36); Mean Corpuscular Volume 86.2 fL (80-100); Mean Platelet Volume 8.5 fL (7.4-10.4); Platelet Count 248 K/uL (130-400); RDW Coefficient of Variation 14.4 % (11.5-14.5); RDW Standard Deviation 44.9 fL (36.4-46.3); Red Blood Count 3.56 M/uL (4.2-5.4); White Blood Count 3.27 K/uL (4.8-10.8)
--- NOTE | 2019-10-25 14:15 | Hospitalist Progress Note ---
Date of Service October 25, 2019 Assessment & Plan (1) GI bleed: Alma Rogers is an 89-year-old woman with past medical history significant for advanced dementia, hyperlipidemia hypertension, anxiety, dementia, depression, CKD 3 who was recently hospitalized in September 2019 for aspiration pneumonia resulting in sepsis during which time she spent several days intubated before returning to [facility] and recovering to her baseline. Acute blood loss Anemia: baseline hg around 8. had heme positive stool and drop in hemoglobin to 5.6. Received 2 units PRBC. repeat hg 10 GI consulted, do not believe that this is an acute GI bleed will defer scope for the time being We will keep overnight and monitor hemoglobin every 12 hours Aspirin and factor X a inhibitor held Dementia: Patient with very severe dementia at baseline, patient is verbal but is not able to speak in conversation Family has consistently wished her to remain a full code, have not yet talked to family and as patient cannot give me any meaningful history we will continue with her previous CODE STATUS of full code Patient appears to be at her baseline level of mentation ECG changes: Patient with evidence of T wave inversion on EKG Troponins negative on presentation have remained negative Change could be related to demand ischemia in setting of very severe anemia We will check new ECG now that hemoglobin is restored Hyponatremia: sodium level 132 on admission, likely secondary to dehydration hypovolemia Continued to hydrate with IV fluids will repeat tomorrow morning Elevated INR: Patient with INR of 1.5, likely from Xa inhibitor HOWIE: Patient initially with creatinine of 1.28 down to 1.1 this morning Likely prerenal as patient shows clear signs of dehydration Atrial fibrillation: Holding home Xarelto as mentioned above Currently in sinus rhythm DVT PPx: Contraindicated with GI bleed, SCD's Code status: FUll code F/E/N: Restarted clear liquid diet per GI recommendations, (2) Abnormal ECG: (3) Heme positive stool: (4) Acute electrocardiogram changes: (5) CKD (chronic kidney disease), stage III: (6) Hyponatremia: (7) GI bleed: Supervising Physician Co-Signing Physician Notes Resident Physician Supervision Note: I independently interviewed and examined the patient and verified the baca history and physical, reviewed labs and image studies, discussed the case with the resident Dr. Starkey and agree with the findings and care plan. Subjective Ana Rogers is resting comfortably today. She denies any concerns but she is not oriented to person place time or situation due to her severe dementia. Review of Systems Review of Systems: Unobtainable due to cognitive status Physical Exam Physical Exam: Constitutional: Very frail appearing woman lying in bed. Opens eyes to voice, but does not interact meaningfully. Does occasionally say no or yes but doesn't seem to be understanding questions, no apparent distress. Eyes: Anicteric SEyes opening spontaneously to voice Respiratory: Shallow breathing, no tachypnea, no increased work of breathing, breath sounds vesicular and equal bilaterally Cardiovascular: Regular rate regular rhythm, no murmurs skips rubs or gallops, minimal lower limb edema Gastrointestinal: Abdomen soft nontender, patient does not appear to be exhibiting any signs of tenderness with shallow or deep palpation in all 4 quadrants Skin: 3x 2 cm skin breakdown on backside pressure sore Neuro: No focal neurologic deficits apparent, patient is able to speak though not in rhythm with a conversation, she is not oriented to person place time or situation Results & Data Vital Signs (Past 12 Hours) Vital Signs Temp Pulse Resp BP Pulse Ox 10/25/19 11:20 36.6 C 65 20 125/53 L 100 10/25/19 07:28 36.5 C 68 19 119/51 L 100 10/25/19 03:34 36.5 C 63 18 129/49 L 100 Resident Activity Tracking Resident Involvement: Resident Care Provided Care Provided: Adult Hospital Medicine (1) GI bleed GI bleed type/associated pathology: unspecified gastrointestinal hemorrhage type Qualified Code(s): K92.2 - Gastrointestinal hemorrhage, unspecified
--- NOTE | 2019-10-25 16:38 | Electrocardiogram Report ---
Test Reason : Blood Pressure : / mmHG Vent. Rate : 066 BPM Atrial Rate : 066 BPM P-R Int : 178 ms QRS Dur : 076 ms QT Int : 418 ms P-R-T Axes : 069 021 139 degrees QTc Int : 438 ms Normal sinus rhythm Abnormal ECG When compared with ECG of 05-OCT-2019 08:54, No significant change was found Confirmed by J Carlos Keane ([id number]) on 10/25/2019 4:38:10 PM Referred By: Confirmed By:J Carlos Keane
[2019-10-26] MEDS: PANTOprazole 40 MG in DEXTROSE 5% 100 ML IV SCH ×5 (02:33→23:02)
[2019-10-26 06:22] LABS: INR 1.1 (0.9-1.1); Prothrombin Time 10.8 Seconds (9.0-12.0)
[2019-10-26] MEDS: SODIUM CHLORIDE 0.9% 1000ML 1,000 ML IV SCH (07:55)
[2019-10-26] MEDS: LATANOPROST 0.005% OP SOLN 2.5 ML BTL OPB SCH (07:56)
[2019-10-26] MEDS: ATORVASTATIN 20 MG TAB PO SCH (07:56)
[2019-10-26] MEDS: VENLAFAXINE HCL XR 150 MG CAPXR PO SCH (07:56)
[2019-10-26 08:03] LABS: Hematocrit (blood only) 31.2 % (37-47); Hemoglobin 10.3 g/dL (12.0-16.0)
--- NOTE | 2019-10-26 16:59 | Hospitalist Progress Note ---
Date of Service October 26, 2019 Assessment & Plan (1) GI bleed: Alma Rogers is an 89-year-old woman with past medical history significant for advanced dementia, hyperlipidemia hypertension, anxiety, dementia, depression, CKD 3 who was recently hospitalized in September 2019 for aspiration pneumonia resulting in sepsis during which time she spent several days intubated before returning to [facility] and recovering to her baseline. Acute blood loss Anemia: Baseline hg around 8. had heme positive stool and drop in hemoglobin to 5.6. Held Xarelto and aspirin. Received 2 units PRBC. Hemoglobin is been stable over 10. Continue to trend H&H daily GI consulted, do not believe that this is an acute GI bleed will defer scope for the time being Discussed risk and benefits of anticoagulation with the family considering the patient's baseline mentation and prognosisthey understand rationale for holding Xarelto and aspirin Dementia: Patient with very severe dementia at baseline, patient is verbal but is not able to speak in conversation Family has consistently wished her to remain a full code, continue goals of care conversation with family upon transfer back to [facility] PT and OT ordered prior to being transferred back to [facility] ECG changes Patient with evidence of T wave inversion on EKG Troponins negative on presentation have remained negative Change could be related to demand ischemia in setting of very severe anemia We will check new ECG now that hemoglobin is restored Hyponatremia Sodium level 132 on admission, likely secondary to dehydration, poor p.o. intake Received IV hydration initially, stop fluids today Elevated INR Patient with INR of 1.5, likely from Xa inhibitor HOWIE Likely prerenal, resolved with IV hydration Atrial fibrillation Continue to hold Xarelto, in sinus rhythm DVT PPx: Contraindicated with GI bleed, SCD's Code status: FUll code F/E/N: Restarted clear liquid diet per GI recommendations Disposition; PT and OT ordered, transfer back to [facility] possibly tomorrow (2) Abnormal ECG: (3) Heme positive stool: (4) Acute electrocardiogram changes: (5) CKD (chronic kidney disease), stage III: (6) Hyponatremia: Supervising Physician Co-Signing Physician Notes Resident Physician Supervision Note: I independently interviewed and examined the patient and verified the baca history and physical, reviewed labs and image studies, discussed the case with the resident Dr. Huerta and agree with the findings and care plan. Subjective Today the patient appears comfortable in bed, she is able to open her eyes and say good morning, but is unable to answer any questions. Unable to make any decipherable sentences. Review of Systems Review of Systems: Unobtainable due to mental health condition Physical Exam Constitutional: WD/WN, vitals as above + ill appearing, + thin and + altered mental status Eyes: PERRL, conjunctivae normal, anicteric sclerae ENMT: external ear and nose normal, oropharynx normal Neck: trachea midline, no thyromegaly Respiratory: normal respiratory effort, lungs clear to auscultation Cardiovascular: RRR, no murmur, no edema Gastrointestinal (Abdomen): Inspection/Auscultation: normal bowel sounds; abdomen not distended Percussion/Palpation: abdomen soft; abdomen nontender, no guarding and abdomen not rigid Musculoskeletal: no cyanosis or clubbing, extremities motor strength 5/5 Skin: no rashes, warm and dry Neurologic: PERRL, EOMI, accommodation nl, no face palsy, no dysarthria Psychiatric: Orientation: + not alert and + not oriented x 3 Saying some words, but no decipherable sentences Results & Data Vital Signs (Past 12 Hours) Vital Signs Temp Pulse Pulse Resp BP BP Pulse Ox 10/26/19 15:46 36.4 C L 69 19 167/66 H 96 10/26/19 15:13 78 10/26/19 11:40 36.8 C 70 16 172/55 H 96 10/26/19 07:40 36.6 C 69 16 152/63 H 100 Resident Activity Tracking Resident Involvement: Resident Care Provided Care Provided: Adult Hospital Medicine (1) GI bleed GI bleed type/associated pathology: unspecified gastrointestinal hemorrhage type Qualified Code(s): K92.2 - Gastrointestinal hemorrhage, unspecified
[2019-10-27] MEDS: PANTOprazole 40 MG in DEXTROSE 5% 100 ML IV SCH ×2 (03:37→07:56)
[2019-10-27] MEDS: LATANOPROST 0.005% OP SOLN 2.5 ML BTL OPB SCH (07:53)
[2019-10-27] MEDS: ATORVASTATIN 20 MG TAB PO SCH (07:53)
[2019-10-27] MEDS: VENLAFAXINE HCL XR 150 MG CAPXR PO SCH (07:53)
[2019-10-27 07:59] LABS: Hemoglobin 10.3 g/dL (12.0-16.0)
[2019-10-27 08:44] LABS: BUN Creatinine Ratio 10.9 (10-20); Calcium 8.1 mg/dl (8.5-10.1); Creatinine Clr Calc Pharmacy 25.1 ml/min; Est GFR (African American) 52.1; Potassium 3.4 mmol/L (3.5-5.1)
[2019-10-27] MEDS ORDERED: POTASSIUM CHLORIDE PWD 20 MEQ PACK PO ONE (10:36)
[2019-10-27] MEDS ORDERED: PANTOprazole 40 MG TAB PO SCH (10:45)
--- NOTE | 2019-10-27 12:05 | Discharge Summary ---
Date of Service October 27, 2019 Admission HPI Per Admitting Provider Ms. Rogers is an 89 y/o female with past medical history of HLD, HTN, Anxiety, Dementia, Depression, A. fib, CKD stage III who presented with anemia noted on labs from outside facility. She was admitted in September 2019 with sepsis related to presumed aspiration PNA and partial small bowel obstruction. Hemoglobin was 5.6 in the ER; will receive 2 units pRBCs. FOBT was positive. She has dementia, cannot obtain history from patient. Principal Diagnosis GI bleed while on Xarelto Discharge Exam Vitals noted and within normal limits GENERAL: Awake, nontoxic-appearing, in no distress. HENT: Normocephalic, atraumatic. Mucus membranes appear moist. EYES: Normal conjunctiva. Sclera non-icteric. EOMI. NECK: Supple. Full range of motion. No JVD. RESPIRATORY: Clear to auscultation. Normal work of breathing. CARDIAC: irreg/irreg, rate in 70s with occasional PACs. Extremities warm and well perfused, cap refill <2 sec. ABDOMEN: Soft, non-distended. No tenderness to palpation in all four quadrants. No rebound or guarding. No masses. Bowel sounds are normal. LOWER EXTREMITIES: Inspection of calves reveal equal size bilaterally. They are non-tender. No edema. NEURO: No gross focal motor deficits noted. Sensation in tact. CN II-XII grossly in tact. SKIN: Rash not present. No jaundice noted. PSYCH: Appropriate mood and affect. Cooperative. Exam as done by Brianne Huerta MD, Salvage Worker. Discharge Data Allergies Allergy/AdvReac Type Severity Reaction Status Date / Time morphine AdvReac Unknown hallucinati Verified 10/24/19 16:27 ons Consultations 10/24/19 15:24 ED Decision to Admit Stat Hospital Course (1) GI bleed: Ana Rogers is an 89-year-old female with past medical history significant for advanced dementia, hyperlipidemia hypertension, anxiety, depression, CKD 3, CVA with residual deficits -- who was recently hospitalized in September 2019 for aspiration pneumonia resulting in sepsis during which time she spent several days intubated before returning to [facility] and recovering to her baseline. Here for GIB, with heme positive stool and drop in hemoglobin to 5.6. Acute blood loss anemia secondary to Gastrointestinal bleed while on Xarelto, in setting of chronic anemia Baseline hg around 8-10. Received 2 units PRBC. H&H has been stable x2days, no further overt bleeding. GI consulted, given that bleed has resolved, no scope was done. - Recommend PPI daily. Risks and benefits of anticoagulation with the family was discussed -- plan to continue Xarelto, but recommend weighing risks and benefits of ongoing aspirin therapy (in setting of h/o CVA) given pt's age -- and question of prophylactic need for aspirin vs further GI bleeding that could worsen her prognosis -- recommend to continue to hold Aspirin at this time and defer resuming this medicine to pt's PCP/neurologist in discussion with family members. - Tolerating clear liquid diet, ok to advance diet as tolerated -Recommend recheck H&H in 1 week. ECG changes Patient with evidence of T wave inversion on EKG Troponins negative on presentation have remained negative Change could be related to demand ischemia in setting of very severe anemia -- no cardiac complaints, recommnd to continue medically managing her AFIB and HTN, optimize electrolytes. Advanced Dementia: Patient with very severe dementia at baseline, patient is verbal but is not ab le to speak in conversation Family has consistently wished her to remain a full code, continue goals of care conversation with family upon transfer back to [facility] H/o CVA, residual left sided weakness -has had a previous right MCA ischemic stroke in the past with noted left-sided weakness, trouble with naming, and left homonymous hemianopsia. -this is why she is on daily aspirin as prophylaxis -continue home Lipitor -recommend weighing risks and benefits of ongoing aspirin therapy (in setting of h/o CVA) given pt's age -- and question of prophylactic need for aspirin vs further GI bleeding that could worsen her prognosis -- recommend to continue to hold Aspirin at this time and defer resuming this medicine to pt's PCP/neurologist in discussion with family members. Hyponatremia Sodium level 132 on admission, received IV hydration initially, resume PO liquids. Is at her baseline. HOWIE on CKD G3a-b Resolved with fluid hydration, likely pre-renal. Atrial fibrillation Xarelto held - 18Oct -- recommend resume this medication on . -continue home metoprolol HTN -continue home norvasc Depression -continue home venlafaxine Asthma -continue home inhalers as needed DVT PPx: Chemical ppx contraindicated in setting of GI bleed, SCD's used while here. Code status: Full code F/E/N: Tolerating clear liquid diet, ok to advance diet as tolerated Disposition: return to [facility]. This was discussed at length with her daughter Afia, she verbalized understanding and agreement, I answered all questions. (2) Abnormal ECG: (3) Heme positive stool: (4) Acute electrocardiogram changes: (5) CKD (chronic kidney disease), stage III: (6) Hyponatremia: Total Time Total Time Spent Total Time Spent (In Minutes): see attending attestation Discharge Plan Discharge Items Patient Disposition: Transfer Half-Way Fac Reason For Visit: GI BLEED Discharge Diagnosis: GI BLEED WHILE ON XARELTO, ASA Condition on Discharge: Good Activity: Per Instructions section Non-emergency contact: Primary Care Provider and Propeller Engineer Call non-emergency contact if: you have any medication questions and your symptoms worsen Follow-up/Referrals: [facility] [Primary Care Provider] - Diet: Full liquid and Heart Healthy Addtl Attending Provider Instructions: Ana Rogers is an 89-year-old female with past medical history significant for advanced dementia, hyperlipidemia hypertension, anxiety, depression, CKD 3, CVA with residual deficits -- who was recently hospitalized in September 2019 for aspiration pneumonia resulting in sepsis during which time she spent several days intubated before returning to [facility] and recovering to her baseline. Here for GIB, with heme positive stool and drop in hemoglobin to 5.6. Gastrointestinal bleed while on Xarelto, in setting of chronic anemia Baseline hg around 8-10. Received 2 units PRBC. H&H has been stable x2days, no further overt bleeding. GI consulted, given that bleed has resolved, no scope was done. - Recommend PPI daily. Risks and benefits of anticoagulation with the family was discussed -- plan to continue Xarelto, but recommend weighing risks and benefits of ongoing aspirin therapy (in setting of h/o CVA) given pt's age -- and question of prophylactic need for aspirin vs further GI bleeding that could worsen her prognosis -- recommend to continue to hold Aspirin at this time and defer resuming this medicine to pt's PCP/neurologist in discussion with family members. - Tolerating clear liquid diet, ok to advance diet as tolerated -Recommend recheck hemoglobin&hematocrit in 1 week. ECG changes Patient with evidence of T wave inversion on EKG Troponins negative on presentation have remained negative Change could be related to demand ischemia in setting of very severe anemia -- no cardiac complaints, recommnd to continue medically managing her AFIB and HTN, optimize electrolytes. Other chronic medical problems: Advanced Dementia: Patient with very severe dementia at baseline, patient is verbal but is not able to speak in conversation Family has consistently wished her to remain a full code, continue goals of care conversation with family upon transfer back to [facility] H/o CVA, residual left sided weakness -has had a previous right MCA ischemic stroke in the past with noted left-sided weakness, trouble with naming, and left homonymous hemianopsia. -this is why she is on daily aspirin as prophylaxis -continue home Lipitor -recommend weighing risks and benefits of ongoing aspirin therapy (in setting of h/o CVA) given pt's age -- and question of prophylactic need for aspirin vs further GI bleeding that could worsen her prognosis -- recommend to continue to hold Aspirin at this time and defer resuming this medicine to pt's PCP/neurolog ist in discussion with family members. Hyponatremia Sodium level 132 on admission, received IV hydration initially, resume PO liquids. Is at her baseline. HOWIE on CKD G3a-b Resolved with fluid hydration, likely pre-renal. Atrial fibrillation Xarelto held - -- recommend resume this medication on . -continue home metoprolol HTN -continue home norvasc Depression -continue home venlafaxine Asthma -continue home inhalers as needed DVT PPx: Chemical ppx contraindicated in setting of GI bleed, SCD's used while here. Code status: Full code F/E/N: Tolerating clear liquid diet, ok to advance diet as tolerated Disposition: return to [facility] Pending Studies at Discharge: No Stand-Alone Forms: My [facility] Skilled Items Patient informed of condition?: Yes DNR: No Discharge Level of Care: Skilled Communicable Disease: No Discharge Prognosis: Stable Lines: None Urinary Catheter: No Medications and DC Order Prescriptions: New pantoprazole 40 mg Tablet,Delayed Release (Dr/Ec) 40 mg PO DAILY 30 Days Qty: 30 RF: 0 Continued ipratropium-albuterol 0.5 mg-3 mg(2.5 mg base)/3 mL solution for nebulization 3 ml INHALATION Q4 PRN (Reason: Shortness Of Breath Or Wheezing) RF: 0 venlafaxine 150 mg tablet extended release 24hr 150 mg PO DAILY RF: 0 latanoprost 0.005 % drops 1 drp OPB DAILY RF: 0 acetaminophen [Tylenol Extra Strength] 500 mg Tablet 1,000 mg PO Q12 RF: 0 hydrocortisone [Anusol-HC] 2.5 % Cream With Perineal Applicator 1 applic SC Q8 PRN (Reason: hemmorrhoidal pain) RF: 0 magnesium hydroxide [Milk of Magnesia] 400 mg/5 mL Suspension 0 mg PO DAILY PRN (Reason: Constipation) RF: 0 Fleet Enema 19-7 gram/118 mL Enema 0 ml SC UD PRN (Reason: Constipation) RF: 0 acetaminophen [Tylenol] 325 mg Tablet 650 mg PO Q6H PRN (Reason: Fever Or Pain) RF: 0 atorvastatin [Lipitor] 20 mg tablet 20 mg PO DAILY RF: 0 amlodipine [Norvasc] 10 mg tablet 10 mg PO DAILY RF: 0 metoprolol tartrate 25 mg tablet 12.5 mg PO BID RF: 0 Xarelto 15 mg tablet 15 mg PO DAILY RF: 0 Combivent Respimat 20-100 mcg/actuation mist 20 - 100 mcg Inhalation Q6H PRN (Reason: cough/wheeze) RF: 0 lorazepam 0.5 mg Tablet 0.25 mg PO Q8 RF: 0 Discontinued aspirin [Aspirin Childrens] 81 mg Tablet,Chewable 81 mg PO DAILY RF: 0 Discharge Orders: Discharge Order (Routine); Ordered 10/27/19 Ordered By: Brianne Huerta Admission Data Admit Date/Time: 10/24/19 16:43 Attending Provider: Mishel Spicer Admit Provider: Russel Baca Primary Care Provider: Bety Ruth Other Providers: Russel Ruff ; Russel Baca Other Interventions: Discharge Summary Assessment (RN) Last Done: 10/27/19 14:36 DC Date/Time DO NOT enter until pt leaves facility: 10/27/19 17:12 Supervising Physician Co-Signing Physician Notes Resident Physician Supervision Note: I independently interviewed and examined the patient and verified the baca history and physical, reviewed labs and image studies, discussed the case with the resident Dr. Huerta and agree with the findings and care plan. Time spent in discharge 35 min Resident Activity Tracking Resident Involvement: Resident Care Provided Care Provided: Adult Hospital Medicine
== END 2019-10-27 17:12 | DRG 813 ==
LOC: ED 13:58 → SUATTDRO 16:43 → 2E 16:43